=== PATIENT | female | born 1955 | race Caucasian/White ===

== ENCOUNTER 2016-09-16 08:32 | Observation (INO) | payer SELFPAY ==
[2016-09-16] MEDS ORDERED: LORAZEPAM CARPU-JECT 2 MG/ML DISP.SYRIN IVPUSH ONE (08:47)
--- NOTE | 2016-09-16 08:56 | PDOC ---
History of Present Illness <Sharon Felix - Last Filed: 09/16/16 10:17> - History of Present Illness Initial Comments: 09/16/16 08:49 61-year-old female with a past medical history of panic disorder, and chronic back pain on a fentanyl patch She is currently taking fentanyl, Percocet, and Klonopin There is no definite history of a prior seizure disorder Patient was brought in by EMS, when her son called that she was having some kind of tremors, and it was unclear if this was a seizure She arrived awake and alert The onset of the symptoms were 7 AM She was unable to sleep last night and did take an Advil PM at 7 AM After being put in bed 6 in the emergency department on the monitor, she was noted to have a heart rate of 117, and when the nurse came in to see her, she was slumped to her side and appeared to be possibly postictal At this time the patient is awake, but confused, and answering simple questions No evidence of any incontinence or tongue biting. She seems to becoming progressively more alert She denies any history of seizure disorder, and denies any recent head trauma No further history is available at this time History is provided by EMS, and old records <Beverly Kaur - Last Filed: 09/17/16 15:37> - General Stated Complaint: TREMORS Time Seen by Provider: 09/16/16 08:38 Past History <Sharon Felix - Last Filed: 09/16/16 10:17> - Past Medical History Anemia: No Asthma: No Cancer: No Cardiac Disorders: No CVA: No COPD: No CHF: No Dementia: No Diabetes: No GI Disorders: No Disorders: No HTN: No Hypercholesterolemia: No Liver Disease: No Psychiatric Problems: Yes (PANIC ATTACKS) Seizures: No Thyroid Disease: No - Surgical History Abdominal Surgery: No Appendectomy: Yes Cardiac Surgery: No Cholecystectomy: No Lung Surgery: No Neurologic Surgery: Yes (herniated disc,scoliosis) Orthopedic Surgery: No - Psycho/Social/Smoking Cessation Hx Anxiety: Yes Suicidal Ideation: No Smoking Status: Yes Smoking History: Never smoked Have you smoked in the past 12 months: Yes Number of Cigarettes Smoked Daily: 40 Cigars Per Day: 0 'Breaking Loose' booklet given: 01/28/16 Hx Alcohol Use: No Drug/Substance Use Hx: Yes Substance Use Type: Prescribed Hx Substance Use Treatment: No <Beverly Kaur - Last Filed: 09/17/16 15:37> - Past Medical History Allergies/Adverse Reactions: Allergies Allergy/AdvReac Type Severity Reaction Status Date / Time No Known Allergies Allergy Verified 05/29/16 20:50 Home Medications: Ambulatory Orders FENTANYL 75mcg PATCH [DURAGESIC 75mcg PATCH -] 75 mcg TD Q72H 01/24/13 Gabapentin 600 mg PO Q8H 12/03/14 Review of Systems - Review of Systems Able to Perform ROS?: No <Beverly Kaur - Last Filed: 09/17/16 15:37> *Physical Exam - Vital Signs Last Vital Signs Temp Pulse Resp BP Pulse Ox 16 171/85 97 09/16/16 08:43 09/16/16 08:43 09/16/16 08:43 <Sharon Felix - Last Filed: 09/16/16 10:17> - Physical Exam Comments: 09/16/16 08:52 Physical exam GENERAL: The patient is awake, alert, and oriented 2 She initially seemed a little post ictal, but is coming around quickly HEAD: Normal with no signs of trauma. EYES: Pupils equal, round and reactive to light, extraocular movements intact, sclera anicteric, conjunctiva are normal. ENT: oropharynx clear without exudates. Moist mucous membranes. NECK: Normal range of motion, supple LUNGS: Breath sounds equal, clear to auscultation bilaterally. No wheezes, and no crackles. HEART: Regular rate and rhythm, normal S1 and S2 without murmur, rub or gallop. ABDOMEN: Soft, nontender, normoactive bowel sounds. No guarding, no rebound. No masses appreciated. EXTREMITIES: Normal range of motion, no edema. No clubbing or cyanosis. No cords, erythema, or tenderness. NEUROLOGICAL: Cranial nerves II through XII grossly intact. Normal speech, motor 5 out of 5 and equal in the upper and lower extremities bilaterally, alert and oriented 2, grossly nonfocal neurologic exam PSYCH: Normal mood, normal affect. SKIN: Warm, Dry, <Beverly Kaur - Last Filed: 09/17/16 15:37> ED Treatment Course - LABORATORY CBC & Chemistry Diagram: 09/16/16 09:10 09/16/16 09:10 - ADDITIONAL ORDERS Additional order review: 09/16/16 09:10 RBC 4.86 MCV 94.9 MCHC 32.7 RDW 13.9 MPV 8.2 - RADIOLOGY Radiograph Interpretation: 09/16/16 10:17 CT/HEAD CT WITHOUT CONTRAST CT scan of the brain c-. Reason for the study. Possible seizure. Comparison study CT brain March 21, 2016 Findings. Serial axial images of the brain were obtained from foramen magnum to the cranial vertex without intravenous contrast. The study was supplemented with computer-generated coronal and sagittal reconstruction images. Heating Worker image was reviewed. There is no evidence of acute subarachnoid hemorrhage, acute intra-axial or extra-axial fluid collection consistent with subdural or epidural hematoma. No mass effect, midline shift, acute territorial ischemic changes, herniation or edema is present. Normal quarles matter white matter differentiation. Age appropriate CSF spaces unchanged from March 21, 2016. No interval change in the degree of the supratentorial chronic white matter microangiopathic ischemic changes. Examination of the bone windows show no fracture. The visualized paranasal sinuses and mastoid air cells are clear. Symmetrical optic globes. Unremarkable retro-orbital soft tissues. Impression. No evidence of acute intracranial hemorrhage, edema, midline shift, mass effect , or skull fracture. No CT evidence of acute territorial infarction. Reported By: Ham Franco MD 09/16/16 1012 RAD/CHEST X-RAY PORTABLE* Questionable seizure. Portable chest x-ray. Comparison study September 11, 2015. Patient is rotated toward the right side. No evidence of cardiomegaly. The pulmonary vasculature is normal. No evidence of pulmonary infiltrates, atelectasis, pleural effusion, or pneumothorax. Intact visualized osseous structures. EKG leads are noted. Impression. No evidence of CHF, pulmonary infiltrates, pleural effusion or pneumothorax. Reported By: Ham Franco MD 09/16/16 0938 <Sharon Felix - Last Filed: 09/16/16 10:17> - LABORATORY CBC & Chemistry Diagram: 09/17/16 06:00 09/17/16 06:00 - RADIOLOGY Radiology Studies Ordered: Category Date Time Status HEAD CT WITHOUT CONTRAST [CT] Stat CT Scan 09/16/16 08:46 Ordered CHEST X-RAY PORTABLE* [RAD] Stat Radiology 09/16/16 08:47 Ordered <Beverly Kaur - Last Filed: 09/17/16 15:37> Medical Decision Making - Medical Decision Making 09/16/16 08:56 61-year-old female with history as noted above, may have had a seizure, and may be post ictal There was a question of her having a seizure at home this morning, No prior history of seizure disorder Chronic pain issues Will give a dose of Ativan IV 09/16/16 09:44 EKG Normal sinus rhythm 95, normal axis Normal AV and IV conduction time Essentially normal EKG 09/16/16 12:02 Chest x-ray-NAD CT scan of the head without-NAD Laboratory Results - last 24 hr 09/16/16 09/16/16 09:10 09:10 WBC 10.9 H D RBC 4.86 Hgb 15.1 Hct 46.1 H MCV 94.9 MCHC 32.7 RDW 13.9 Plt Count 366 MPV 8.2 Sodium 137 Potassium 4.3 Chloride 98 Carbon Dioxide 23 D Anion Gap 16 BUN 18 D Creatinine 1.5 H D Creat Clearance w eGFR 35.19 Random Glucose 99 Calcium 9.5 Magnesium 2.6 H Total Bilirubin 0.4 D AST 19 D ALT 14 D Alkaline Phosphatase 113 Troponin I < 0.02 Total Protein 8.0 Albumin 4.5 Lipase 80 Possible new onset seizure disorder 09/16/16 12:40 Possible new onset seizure disorder Case discussed with hospitalist-Will place in observation for further workup <Beverly Kaur - Last Filed: 09/17/16 15:37> *DC/Admit/Observation/Transfer <Sharon Felix - Last Filed: 09/16/16 10:17> - Discharge Dispostion Admit: Yes <Beverly Kaur - Last Filed: 09/17/16 15:37> Diagnosis at time of Disposition: New onset seizure
[2016-09-16 09:25] LABS: MCHC 32.7 g/dl (32.0-36.0); MEAN CELL VOLUME 94.9 fl (80-96); MEAN PLT VOLUME 8.2 fl (7.5-11.1); PLATELET COUNT 366 K/MM3 (134-434); RDW 13.9 % (11.6-15.6); WHITE BLOOD COUNT 10.9 K/mm3 (4.0-10.0)
[2016-09-16 10:13] LABS: ALBUMIN 4.5 g/dl (3.4-5.0); ANION GAP 16 (8-16); CALCIUM 9.5 mg/dL (8.5-10.1); CO2 23 mmol/L (21-32); CREATININE 1.5 mg/dL (0.55-1.02); GLUCOSE,RANDOM 99 mg/dL (74-106); MAGNESIUM 2.6 mg/dL (1.8-2.4); SGPT/ALT 14 U/L (12-78)
[2016-09-16 10:17] LABS: ALK PHOS 113 U/L (45-117); BILIRUBIN,TOTAL 0.4 mg/dL (0.2-1.0); TROPONIN I < 0.02 ng/ml (0.00-0.05)
[2016-09-16 10:37] LABS: SGOT/AST 19 U/L (15-37)
--- NOTE | 2016-09-16 13:24 | EKG ---
Test Reason : Blood Pressure : / mmHG Vent. Rate : 095 BPM Atrial Rate : 095 BPM P-R Int : 102 ms QRS Dur : 078 ms QT Int : 366 ms P-R-T Axes : 066 066 062 degrees QTc Int : 459 ms SINUS RHYTHM WITH SHORT MN OTHERWISE NORMAL ECG WHEN COMPARED WITH ECG OF 21-MAR-2016 00:33, PREMATURE ATRIAL COMPLEXES ARE NO LONGER PRESENT T WAVE VARIATION Confirmed by FIDELIA DENISE, RADHA ([id number]) on 09/16/2016 1:23:59 PM Referred By: Confirmed By:RADHA MISTRY MD
[2016-09-16] MEDS ORDERED: LORAZEPAM CARPU-JECT 2 MG/ML DISP.SYRIN IVPUSH PRN (13:55)
--- NOTE | 2016-09-16 14:28 | HP ---
CHIEF COMPLAINT: Episode of possible seizure witnessed by family member PCP: HISTORY OF PRESENT ILLNESS: 61 year old female that presents to the ED after family witnessed episode of confusion and associated tremors. No family is present by the bedside at this time . History is obtained from patient and she has tangential thought process. Patient herself remembers taking 2 "Advil PM" around 6 am due to insomnia after which she recalls having " twitching " . Denies trauma, denies syncope , denies history of seizure. In the ED she had an episode that was described as postictal state. She was given Ativan. Recent Travel: NO PAST MEDICAL HISTORY: Chronic Back Pain PAST SURGICAL HISTORY: Back surgery Social History: Smoking:YES 30 P/Y Alcohol:denies Drugs: denies Family History: No history of seizure in the family Allergies No Known Allergies Allergy (Verified 05/29/16 20:50) DENIES HOME MEDICATIONS: Home Medications Medication Instructions Recorded FENTANYL 75mcg PATCH [DURAGESIC 75 mcg TD Q72H 01/24/13 75mcg PATCH -] Gabapentin 600 mg PO Q8H 12/03/14 REVIEW OF SYSTEMS CONSTITUTIONAL: Absent: fever, chills, diaphoresis, generalized weakness, malaise, loss of appetite, weight change HEENT: Absent: rhinorrhea, nasal congestion, throat pain, throat swelling, difficulty swallowing, mouth swelling, ear pain, eye pain, visual changes CARDIOVASCULAR: Absent: chest pain, syncope, palpitations, irregular heart rate, lightheadedness , peripheral edema RESPIRATORY: Absent: cough, shortness of breath, dyspnea with exertion, orthopnea, wheezing, stridor, hemoptysis GASTROINTESTINAL: Absent: abdominal pain, abdominal distension, nausea, vomiting, diarrhea, constipation, melena, hematochezia GENITOURINARY: Absent: dysuria, frequency, urgency, hesitancy, hematuria, flank pain, genital pain MUSCULOSKELETAL: Chronic back pain SKIN: Absent: rash, itching, pallor HEMATOLOGIC/IMMUNOLOGIC: Absent: easy bleeding, easy bruising, lymphadenopathy, frequent infections ENDOCRINE: Absent: unexplained weight gain, unexplained weight loss, heat intolerance, cold intolerance NEUROLOGIC: per HPI PSYCHIATRIC: Absent: anxiety, depression, suicidal or homicidal ideation, hallucinations. PHYSICAL EXAMINATION Vital Signs - 24 hr 09/16/16 13:02 Pulse Rate [ 88 Apical] Respiratory 18 Rate Blood Pressure 160/56 [Left Arm] O2 Sat by Pulse 98 Oximetry (%) GENERAL: Awake, alert, and fully oriented, in no acute distress. HEAD: Normal with no signs of trauma. EYES: Pupils equal, round and reactive to light, extraocular movements intact, sclera anicteric, conjunctiva clear. No lid lag. EARS, NOSE, THROAT: Ears normal, nares patent, oropharynx clear without exudates. Moist mucous membranes. NECK: Normal range of motion, supple without lymphadenopathy, JVD, or masses. LUNGS: Breath sounds equal, clear to auscultation bilaterally. No wheezes, and no crackles. No accessory muscle use. HEART: Regular rate and rhythm, normal S1 and S2 without murmur, rub or gallop. ABDOMEN: Soft, nontender, not distended, normoactive bowel sounds, no guarding, no rebound, no masses. No hepatomegaly or splenomegaly. MUSCULOSKELETAL: Normal range of motion at all joints. No bony deformities or tenderness. No CVA tenderness. UPPER EXTREMITIES: 2+ pulses, warm, well-perfused. No cyanosis. No clubbing. No peripheral edema. LOWER EXTREMITIES: 2+ pulses, warm, well-perfused. No calf tenderness. No peripheral edema. NEUROLOGICAL: Cranial nerves II-XII intact. Normal speech. Normal gait. PSYCHIATRIC: Cooperative. Good eye contact. Tangential thought process SKIN: Warm, dry, normal turgor, no rashes or lesions noted, normal capillary refill. CT scan of the hed showed n o acute abnormality Abnormal Lab Results 09/16/16 09/16/16 09:10 09:10 WBC 10.9 H D Hct 46.1 H Creatinine 1.5 H D Magnesium 2.6 H ASSESSMENT/PLAN: 61 year old female with possible new onset seizure . 1. Possible seizure - no prior history, no acute findings on CT. Possibly medication induced confusion. SHe is on fentanyl/neurontin and took Advil PM - EEG -Ativan PRN -frequent neuro checks - seizure precautions - neurology evaluation 2. Elevated creatinine- r/o UTI, dehydration - IVF - UA stat 3. Chronic back pain - on fentanyl patch . Will use the one placed at home 4. DVT PPX - SCD. Visit type - Emergency Visit Emergency Visit: Yes ED Registration Date: 09/16/16 Care time: The patient presented to the Emergency Department on the above date and was hospitalized for further evaluation of their emergent condition. - New Patient This patient is new to me today: Yes Date on this admission: 09/16/16 - Critical Care Critical Care patient: No
--- NOTE | 2016-09-16 16:45 | PN ---
Progress Note (short form) - Note Progress Note: Neurology Attempted to see patient at bedside multiple times, she is currently unavailable at testing EEG, ativan prn ordered Full consult to follow
[2016-09-16 17:52] VITALS: BMI 18.8
[2016-09-16] MEDS: SODIUM CHLORIDE 1,000 ML IV SCH (19:33)
[2016-09-17 00:49] LABS: URINE APPEARANCE CLEAR; URINE BILIRUBIN NEGATIVE (NEGATIVE); URINE BLOOD NEGATIVE (NEGATIVE); URINE COLOR YELLOW; URINE GLUCOSE (UA) NEGATIVE (NEGATIVE); URINE KETONE NEGATIVE (NEGATIVE); URINE NITRITE POSITIVE (NEGATIVE); URINE UROBILINOGEN NEGATIVE E.U./dl (0.2-1.0)
[2016-09-17 00:52] LABS: URINE LEUK ESTERASE TRACE (NEGATIVE); URINE PROTEIN 1+ (NEGATIVE)
[2016-09-17 00:55] LABS: URINE BACTERIA MANY /hpf (NONE SEEN); URINE RBC <1 /hpf (0-3); URINE WBC 13 /hpf (3-5)
[2016-09-17 02:06] LABS: URINE MARIJUANA THC NEGATIVE ng/ml (CUTOFF=50)
[2016-09-17] MEDS: SODIUM CHLORIDE 1,000 ML IV SCH (05:16)
[2016-09-17 08:21] LABS: BASOPHIL 1.2 % (0-2.0); MCH 31.3 pg (25.7-33.7); MCHC 32.9 g/dl (32.0-36.0); MEAN PLT VOLUME 8.3 fl (7.5-11.1); NEUTROPHILS 39.9 % (42.8-82.8); PLATELET COUNT 269 K/MM3 (134-434); RDW 13.8 % (11.6-15.6); WHITE BLOOD COUNT 6.8 K/mm3 (4.0-10.0)
[2016-09-17 09:03] LABS: ALK PHOS 74 U/L (45-117); ANION GAP 8 (8-16); BILIRUBIN,TOTAL 0.2 mg/dL (0.2-1.0); CALCIUM 7.9 mg/dL (8.5-10.1); CO2 26 mmol/L (21-32); CREATININE 0.9 mg/dL (0.55-1.02); GLUCOSE,RANDOM 78 mg/dL (74-106); SGOT/AST 8 U/L (15-37); SGPT/ALT 9 U/L (12-78); TOT PROT 5.2 g/dl (6.4-8.2)
--- NOTE | 2016-09-17 11:58 | CONSULT ---
Consult Consult Specialty:: Neurology Reason for Consultation:: Possible seizure - History of Present Illness History of Present Illness: 61 year old woman, presents with episode of confusion and tremors in bilateral upper extremities. The patient reports yesterday noting new onset of confusion followed by both hands trembling lasting a few minutes and self resolving. She states she is unclear whether she lost consciousness. She denies any associated incontinence or tongue biting. Denies prior history of seizure but states she had one episode of confusion but was unable to elaborate on the details of this event. The patient is tangential and difficult to obtain history from, but states she is back to baseline. Has noted increased anxiety due to recent family events. CT head performed in ED shows no acute findings. EEG completed and results are pending. - History Source History Provided By: Patient - Past Medical History Musculoskeletal: Yes: Chronic low back pain - Alcohol/Substance Use Hx Alcohol Use: No - Smoking History Smoking history: Never smoked Have you smoked in the past 12 months: Yes Aproximately how many cigarettes per day: 40 - Social History ADL: Family Assistance History of Recent Travel: No Home Medications - Allergies Allergies/Adverse Reactions: Allergies Allergy/AdvReac Type Severity Reaction Status Date / Time No Known Allergies Allergy Verified 05/29/16 20:50 - Home Medications Home Medications: Ambulatory Orders FENTANYL 75mcg PATCH [DURAGESIC 75mcg PATCH -] 75 mcg TD Q72H 01/24/13 Gabapentin 600 mg PO Q8H 12/03/14 Family Disease History - Family Disease History Family History: Denies Review of Systems - Review of Systems Constitutional: reports: No Symptoms Eyes: reports: No Symptoms HENT: reports: No Symptoms Cardiovascular: reports: No Symptoms Respiratory: reports: No Symptoms Neurological: reports: Tremors Physical Exam Vital Signs: Vital Signs Temperature 98.7 F 09/17/16 06:00 Pulse Rate 65 09/17/16 06:00 Respiratory Rate 18 09/17/16 06:00 Blood Pressure 104/52 09/17/16 06:00 O2 Sat by Pulse Oximetry (%) 95 09/16/16 21:00 Constitutional: Yes: No Distress, Calm Eyes: Yes: Conjunctiva Clear, EOM Intact HENT: Yes: Atraumatic, Normocephalic Cardiovascular: Yes: S1, S2 Respiratory: Yes: Regular Neurological: Yes: Alert, Oriented, Cran Nerves II-XII Intact ...Motor Strength: WNL Labs: CBC, BMP 09/17/16 06:00 09/17/16 06:00 Assessment/Plan 61 year old woman, presents with episode of confusion and tremors in bilateral upper extremities. The patient reports yesterday noting new onset of confusion followed by both hands trembling lasting a few minutes and self resolving. She states she is unclear whether she lost consciousness. She denies any associated incontinence or tongue biting. Denies prior history of seizure but states she had one episode of confusion but was unable to elaborate on the details of this event. The patient is tangential and difficult to obtain history from, but states she is back to baseline. CT head performed in ED shows no acute findings. EEG completed and results are pending. Possible seizure, unclear if symptoms related to anxiety CT head no acute findings MRI brain without contrast pending EEG pending No clear indication to initiate AEDs given this is possible first time event If MRI brain and EEG show no acute findings, recommend outpatient neurology follow up
[2016-09-17 14:48] VITALS: BP 122/88; PULSE 70; TEMP 98.6
--- NOTE | 2016-09-17 16:18 | DS ---
Physical Exam: SUBJECTIVE: Patient seen and examined at bedside, alert, awake, denies any concurrent symptoms, denies TAVERA, CP, SOB,N,V. No episodes of limb jerking. OBJECTIVE: Vital Signs Period Temp Pulse Resp BP Sys/Gruber Pulse Ox Last 24 Hr 97.8 F-99.1 F 65-76 16-18 100-122/52-88 94-95 PHYSICAL EXAM GENERAL: The patient is awake, alert, and fully oriented, not confused. speaks in tangents, anxious HEAD: Normal with no signs of trauma. EYES: PERRL, extraocular movements intact, sclera anicteric, conjunctiva clear. ENT: Ears normal, nares patent, oropharynx clear without exudates, moist mucous membranes. NECK: Trachea midline, full range of motion, supple. LUNGS: Breath sounds equal, clear to auscultation bilaterally, no wheezes, no crackles, no accessory muscle use. HEART: Regular rate and rhythm, S1, S2 without murmur, rub or gallop. ABDOMEN: Soft, nontender, nondistended, normoactive bowel sounds, no guarding, no rebound, no hepatosplenomegaly, no masses. EXTREMITIES: 2+ pulses, warm, well-perfused, no edema. NEUROLOGICAL: Cranial nerves II through XII grossly intact. Normal speech, gait not observed. PSYCH: speaks in tangent, anxious, component of personality disorder SKIN: Warm, dry, normal turgor, no rashes or lesions noted. LABS Laboratory Results - last 24 hr 09/16/16 09/16/16 09/17/16 23:20 23:20 06:00 WBC 6.8 D RBC 3.85 D Hgb 12.0 D Hct 36.6 D MCV 95.0 MCHC 32.9 RDW 13.8 Plt Count 269 D MPV 8.3 Neutrophils % 39.9 L D Lymphocytes % 49.3 H D Monocytes % 7.6 Eosinophils % 2.0 D Basophils % 1.2 Sodium Potassium Chloride Carbon Dioxide Anion Gap BUN Creatinine Creat Clearance w eGFR Random Glucose Calcium Total Bilirubin AST ALT Alkaline Phosphatase Total Protein Albumin Urine Color Yellow Urine Appearance Clear Urine pH 5.0 Ur Specific [place] 1.025 Urine Protein 1+ H Urine Glucose (UA) Negative Urine Ketones Negative Urine Blood Negative Urine Nitrite Positive Urine Bilirubin Negative Urine Urobilinogen Negative Ur Leukocyte Esterase Trace H Urine RBC <1 Urine WBC 13 Ur Epithelial Cells Rare Urine Bacteria Many Opiates Screen Negative Methadone Screen Negative Barbiturate Screen Negative Phencyclidine Screen Negative Ur Amphetamines Screen Negative MDMA (Ecstasy) Screen Negative Benzodiazepines Screen Negative Cocaine Screen Negative U Marijuana (THC) Screen Negative 09/17/16 06:00 WBC RBC Hgb Hct MCV MCHC RDW Plt Count MPV Neutrophils % Lymphocytes % Monocytes % Eosinophils % Basophils % Sodium 144 Potassium 4.1 Chloride 110 H D Carbon Dioxide 26 Anion Gap 8 BUN 22 H D Creatinine 0.9 D Creat Clearance w eGFR > 60 Random Glucose 78 D Calcium 7.9 L Total Bilirubin 0.2 D AST 8 L D ALT 9 L D Alkaline Phosphatase 74 D Total Protein 5.2 L D Albumin 3.0 L D Urine Color Urine Appearance Urine pH Ur Specific [place] Urine Protein Urine Glucose (UA) Urine Ketones Urine Blood Urine Nitrite Urine Bilirubin Urine Urobilinogen Ur Leukocyte Esterase Urine RBC Urine WBC Ur Epithelial Cells Urine Bacteria Opiates Screen Methadone Screen Barbiturate Screen Phencyclidine Screen Ur Amphetamines Screen MDMA (Ecstasy) Screen Benzodiazepines Screen Cocaine Screen U Marijuana (THC) Screen HOSPITAL COURSE: Date of Admission:09/16/16 Date of Discharge: 09/17/16 This is a 61 year old female, poor historian, with a past medical history of depression, chronic back pain, presented to ER by ambulance due to supposed, unwitnessed, seizure like activity. Patient describes event as "my arms were moving and I couldn't control it," she said she dropped her ashtray. She denied loss of consciousness to me personally. The HPI is different with each interrogation. She described to me a very unhealthy living environment at home, daughter alcoholic, living with her, granddaughter, son. She has experienced recent deaths in her life, her ex and son, details unknown. On admission vitals signs were normal, labs were normal, head CT was normal. She had an EEG study, currently pending. She was seen by neurology. Patient did not experience any episodes while in hospital. This etiology presents more toward a psychological aspect, possibly anxiety vs a neurology aspect of an acute seizure. Patient does have a psych history for which she take sertraline. Patient does wear fentanyl patch for back pain 75mg q72hrs. She did admit to taking Advil PM that night of her event as well, this could have caused some confusion. Patient is advise to follow up with neurology to review her EEG study. MRI of brain as outpatient if necessary. Minutes to complete discharge: 35 Discharge Summary Reason For Visit: NEW ONSET SEIZURE Current Active Problems Accidental fall (Acute) Anxiety (Acute) New onset seizure (Acute) Chronic pain (Chronic) Condition: Fair - Instructions Diet, Activity, Other Instructions: Ms. Becker, you have been observed and worked up for you r acute condition. We believe what you experienced could have been from dehydration, not eating and drinking the past few days, or a mix from your pain medications and added Advil PM. Please refrain from mixing medications that can make you drowsy while on your pain patch. Your head cat scan was normal. Please follow up with your neurologist for further evaluation of your condition. If you experience any worsening of symptoms, chest pain, shortness of breath, loss of consciousness, please return to the emergency room. Referrals: Lety Huntley MD [Staff Physician] - - Home Medications Comprehensive Discharge Medication List: Ambulatory Orders FENTANYL 75mcg PATCH [DURAGESIC 75mcg PATCH -] 75 mcg TD Q72H 01/24/13 Gabapentin 600 mg PO Q8H 12/03/14 This patient is new to me today: Yes Date on this admission: 09/17/16 Emergency Visit: Yes ED Registration Date: 09/16/16 Care time: The patient presented to the Emergency Department on the above date and was hospitalized for further evaluation of their emergent condition. Critical Care patient: No - Discharge Referral Referred to [facility] No
--- NOTE | 2016-09-17 16:24 | PN ---
Teaching Attending Note Name of Resident: Zaina Clifford ATTENDING PHYSICIAN STATEMENT I saw and evaluated the patient. I reviewed the resident's note and discussed the case with the resident. I agree with the resident's findings and plan as documented. SUBJECTIVE: seen and evaluated at the bedside OBJECTIVE: resting comfortably; no focal deficits on exam; extremely tangential speech ASSESSMENT AND PLAN: 61 year old woman well known to ED staff with multiple psychiatric problems including depression, anxiety, panic attacks, on chronic opiates for chronic lower back pain -pt has multiple visits to ED for accidental medication overdose, medication "side effects", and numerous ED visits wanting refills on clonezepam and opiates -very difficult to take history as pt has extremely tangential speech but states that she was taking a bath and then her arms started shaking uncontrollably and her had no control over her body and threw herself out of the tub onto the bathroom floor -never lost consciousness and had no bladder/bowel incontinence -stated that she had similar episode in Jul of this year but could not remember any details and did remember is she sough medical attention at that time -called Pt's daughter Jacobo who also has extremely tangential speech; when asked about what happened at home yesterday had to ask very detailed questions to get any kind of sensible answers from daughter -when asked about episode in Jul daughter states "I dont know" and then started talking about how she advised her mother that she couldnt cynthia the pharmaceutical companies because the side effects were written on the bottle and that she should have her riveting machine operator tape control make arrangements for her to be the legal guardian of the mother and have control over her money -when redirected to events in Jul daughter stated again that she didnt know what happened; when asked if her family took her mother to see a doctor at that time she couldnt remember and stated that "I may not have been here"; was then asked if they lived together she replied "yes but I may not have been here" -pt's daughter was then asked if she was away on vacation or out of town when she said "I may not have been here" she said "I never go on vacation because people say I am too nice" -all of a sudden daughter began acting very paranoid and stating that she didnt want to share any medical information "with someone over the phone" and asked if her mother gave permission -daughter then said "you're not using proper vocabulary for your profession"; when asked what vocabulary should be used she hung up the phone -pt will be discharged home as she never lost consciousness and had no bladder/ bowel incontinence and can follow up with neurology as an outpatient
== END 2016-09-17 18:09 | disposition home or self-care (01) ==
LOC: JER 08:32 → JERBED 12:41 → J8W 18:00
PROVIDERS: ADMIT Internal Medicine; ATTEND Internal Medicine
DX: R56.9 Unspecified convulsions (principal); F41.9 Anxiety disorder, unspecified; G89.29 Other chronic pain; M54.5 Low back pain; E86.0 Dehydration
CPT/HCPCS: 36415; 70450-TC; 71010-TC; 80048; 80053; 80307; 81003; 81015; 82550; 83690; 83735; 84484; 85025; 85027; 93005; 93010; 95816; 99285-25; G0378

== ENCOUNTER 2016-10-19 15:51 | Emergency (ER) | payer SELFPAY ==
--- NOTE | 2016-10-19 15:54 | PDOC ---
History of Present Illness - General History Source: Patient Exam Limitations: No Limitations - History of Present Illness Initial Comments: 10/19/16 16:10 The patient is a 61-year-old female with a past medical history of panic disorder, and chronic back pain on a fentanyl patch, who presents to the ED with withdrawal symptoms and tremors from losing remaining fentanyl patches. She only complains of her usual back pain and chills. She denies fever, SOB, chest pain, nausea, vomiting, diarrhea, dysuria, frequency. Last refill 09/24/16 <Sam Oneill - Last Filed: 10/19/16 16:28> <Steve Haro - Last Filed: 10/19/16 17:39> - General Stated Complaint: WITHDRAWAL SYMPTOMS Time Seen by Provider: 10/19/16 15:54 Past History <Sam Oneill - Last Filed: 10/19/16 16:28> - Past Medical History Anemia: No Asthma: No Cancer: No Cardiac Disorders: No CVA: No COPD: No CHF: No Dementia: No Diabetes: No GI Disorders: No Disorders: No HTN: No Hypercholesterolemia: No Liver Disease: No Psychiatric Problems: Yes (PANIC ATTACKS) Seizures: No Thyroid Disease: No - Surgical History Abdominal Surgery: No Appendectomy: Yes Cardiac Surgery: No Cholecystectomy: No Lung Surgery: No Neurologic Surgery: Yes (herniated disc,scoliosis) Orthopedic Surgery: No - Immunization History Immunization Up to Date: Yes - Psycho/Social/Smoking Cessation Hx Anxiety: Yes Suicidal Ideation: No Smoking Status: Yes Smoking History: Never smoked Have you smoked in the past 12 months: Yes Number of Cigarettes Smoked Daily: 40 Cigars Per Day: 0 'Breaking Loose' booklet given: 01/28/16 Hx Alcohol Use: No Drug/Substance Use Hx: Yes Substance Use Type: Prescribed Hx Substance Use Treatment: No <Steve Haro - Last Filed: 10/19/16 17:39> - Past Medical History Allergies/Adverse Reactions: Allergies Allergy/AdvReac Type Severity Reaction Status Date / Time No Known Allergies Allergy Verified 10/19/16 15:53 Home Medications: Ambulatory Orders FENTANYL 75mcg PATCH [DURAGESIC 75mcg PATCH -] 75 mcg TD Q72H 01/24/13 Gabapentin 800 mg PO ASDIR 12/03/14 Oxycodone HCl/Acetaminophen [Percocet 10-325 mg Tablet] 1 each PO ASDIR Review of Systems - Review of Systems Able to Perform ROS?: Yes Comments:: 10/19/16 16:10 GENERAL/CONSTITUTIONAL: + chills. No fever. No weakness. HEAD, EYES, EARS, NOSE AND THROAT: No change in vision. No ear pain or discharge. No sore throat. CARDIOVASCULAR: No chest pain or shortness of breath. RESPIRATORY: No cough, wheezing, or hemoptysis. GASTROINTESTINAL: No nausea, vomiting, diarrhea or constipation. GENITOURINARY: No dysuria, frequency, or change in urination. MUSCULOSKELETAL: + back pain. No joint or muscle swelling or pain. No neck pain. SKIN: No rash NEUROLOGIC: No headache, vertigo, loss of consciousness, or change in strength/ sensation. ENDOCRINE: No increased thirst. No abnormal weight change. HEMATOLOGIC/LYMPHATIC: No anemia, easy bleeding, or history of blood clots. ALLERGIC/IMMUNOLOGIC: No hives or skin allergy. <Sam Oneill - Last Filed: 10/19/16 16:28> *Physical Exam - Vital Signs Last Vital Signs Temp Pulse Resp BP Pulse Ox 99.1 F 112 H 18 162/96 98 10/19/16 15:52 10/19/16 15:52 10/19/16 15:52 10/19/16 15:52 10/19/16 15:52 - Physical Exam Comments: 10/19/16 16:11 GENERAL: Awake, alert, and fully oriented, in no acute distress. Tremors HEAD: No signs of trauma EYES: PERRLA, EOMI, sclera anicteric, conjunctiva clear ENT: Auricles normal inspection, hearing grossly normal, nares patent, oropharynx clear without exudates. Moist mucosa NECK: Normal ROM, supple, no lymphadenopathy, JVD, or masses LUNGS: Breath sounds equal, clear to auscultation bilaterally. No wheezes, and no crackles HEART: Tachycardic. Normal S1 and S2, no murmurs, rubs or gallops ABDOMEN: Soft, nontender, normoactive bowel sounds. No guarding, no rebound. No masses EXTREMITIES: Normal range of motion, no edema. No clubbing or cyanosis. No cords, erythema, or tenderness NEUROLOGICAL: Cranial nerves II through XII grossly intact. Normal speech, normal gait SKIN: Warm, Dry, normal turgor, no rashes or lesions noted. <Sam Oneill - Last Filed: 10/19/16 16:28> Heart Score/ECG Review - ECG Intrepretation Comment:: 10/19/16 16:29 Sinus Rhythm with short MS. Vent Rate of 88 bpm Otherwise normal ECG. <Sam Oneill - Last Filed: 10/19/16 16:28> ED Treatment Course - LABORATORY CBC & Chemistry Diagram: 10/19/16 16:48 10/19/16 16:48 - ADDITIONAL ORDERS Additional order review: 10/19/16 16:53 Pt is resting more comfortably, no tremors on re-examination. Patient will call PMD tomorrow to obtain refills. Pt with mild diarrhea. Tremors resolved. No tachycardia, HR on EKG NSR with HR 88 Will discharge home Pt is in agreement with plan 10/19/16 16:55 Neuro exam in grossly intact, no signs of a spinal abscess noted No fever, fall or trauma. 10/19/16 17:37 Pt is much better, no shaking. Will discharge home. Labs WNL. Pt is in agreement with plan, will follow up with PMD If worsen return to ER <Steve Haro - Last Filed: 10/19/16 17:39> *DC/Admit/Observation/Transfer - Attestations Scribe Attestion: 10/19/16 16:12 Documentation prepared by Sam Oneill, acting as lead medical technologist for Steve Haro MD. <Sam Oneill - Last Filed: 10/19/16 16:28> - Discharge Dispostion Admit: No <Steve Haro - Last Filed: 10/19/16 17:39> Diagnosis at time of Disposition: Opiate withdrawal - Discharge Dispostion Disposition: HOME Condition at time of disposition: Good - Patient Instructions Printed Discharge Instructions: DI for Drug Withdrawal Additional Instructions: Please follow up with PMD tomorrow If worsen return to ER
[2016-10-19] MEDS ORDERED: OXYCODONE/APAP 5/325MG COMBO TABLET PO ONE (16:04)
[2016-10-19] MEDS ORDERED: FENTANYL PATCH WASTE MC PRN (16:04)
[2016-10-19] MEDS ORDERED: SODIUM CHLORIDE 1,000 ML IV STA (16:08)
[2016-10-19] MEDS ORDERED: OXYCODONE/APAP 5/325MG COMBO TABLET ONE (16:09)
[2016-10-19] MEDS ORDERED: fentaNYL 75mcg/hr PATCH.TD72 TD SCH (16:15)
[2016-10-19 16:16] VITALS: TEMP 99.1; BMI 21.4
[2016-10-19 17:11] LABS: ALBUMIN 4.2 g/dl (3.5-5.0); ALK PHOS 94 U/L (32-92); ANION GAP 11 (8-16); CALCIUM 9.2 mg/dl (8.4-10.2); CO2 20 mmol/L (22-28); CREATININE 0.9 mg/dl (0.6-1.3); GLUCOSE,RANDOM 102 mg/dl (74-106); SGOT/AST 15 U/L (10-42); TOT PROT 7.3 g/dl (6.4-8.3)
[2016-10-19 17:14] LABS: BASOPHIL 1.1 % (0-2.0); EOSINOPHIL 1.4 % (0-4.5); MCH 31.3 pg (25.7-33.7); MCHC 33.5 g/dl (32.0-36.0); MEAN CELL VOLUME 93.4 fl (80-96); MEAN PLT VOLUME 9.3 fl (7.5-11.1); PLATELET COUNT 448 K/MM3 (134-434); RDW 13.7 % (11.6-15.6); WHITE BLOOD COUNT 8.4 K/mm3 (4.0-10.8)
[2016-10-19 17:24] LABS: BILIRUBIN,TOTAL 0.6 mg/dl (0.2-1.0)
[2016-10-19 17:26] LABS: SGPT/ALT < 10 U/L (10-40)
[2016-10-19 17:54] VITALS: BP 148/84; PULSE 86
--- NOTE | 2016-10-20 10:18 | EKG ---
Test Reason : Blood Pressure : / mmHG Vent. Rate : 088 BPM Atrial Rate : 088 BPM P-R Int : 082 ms QRS Dur : 072 ms QT Int : 382 ms P-R-T Axes : 023 067 066 degrees QTc Int : 462 ms SINUS RHYTHM WITH SHORT ME OTHERWISE NORMAL ECG WHEN COMPARED WITH ECG OF 16-SEP-2016 08:59, ST NO LONGER DEPRESSED IN ANTERIOR LEADS Confirmed by RORY DENISE, KANA ([id number]) on 10/20/2016 10:18:42 AM Referred By: GÓMEZ GERBER Confirmed By:KANA VALADEZ MD
== END 2016-10-19 17:54 | disposition home or self-care (01) ==
LOC: FER 15:51
PROC: 3E0337Z Introduction of Electrolytic and Water Balance Substance into Peripheral Vein, Percutaneous Approach (ICD-10-PCS; principal; 2016-10-19)
DX: F11.23 Opioid dependence with withdrawal (principal); G89.29 Other chronic pain; F17.210 Nicotine dependence, cigarettes, uncomplicated; F41.9 Anxiety disorder, unspecified
CPT/HCPCS: 36415; 80053; 85025; 93005; 99283-25

== ENCOUNTER 2016-10-24 18:50 | Emergency (ER) | payer SELFPAY ==
[2016-10-24 18:58] VITALS: TEMP 98; BMI 20.7
--- NOTE | 2016-10-24 19:17 | PDOC ---
History of Present Illness - General Chief Complaint: RX Refill Stated Complaint: I HAVENT HAD MY MEDS IN DAYS Time Seen by Provider: 10/24/16 19:13 - History of Present Illness Initial Comments: This 61-year-old woman with a history of chronic back pain secondary to injury states that she has not been able to contact her pain management doctor ( ) for the last 5 days and has not been able to obtain refills of her pain medications. Patient has been maintained on fentanyl patch/Percocet/ gabapentin. According to [facility] records,the last time she filled prescriptions for these medications was 09/24/16. She was seen in the ER here on 10/19/16 and fentanyl patch was placed. She also received 1 Percocet tablet by mouth. Plan was for her to contact her physician for refills. Patient states that despite multiple attempts to have her doctor call her back, she has been unable to reach him. The patient still has the fentanyl patch intact on her left arm; she has not had any Percocet since October 19 and gabapentin since the previous week. Patient states that she feels somewhat jittery with moderate pain of her back but otherwise is in no acute distress. Past History - Past Medical History Allergies/Adverse Reactions: Allergies Allergy/AdvReac Type Severity Reaction Status Date / Time No Known Allergies Allergy Verified 10/24/16 18:53 Home Medications: Ambulatory Orders FENTANYL 75mcg PATCH [DURAGESIC 75mcg PATCH -] 75 mcg TD Q72H 01/24/13 Gabapentin 800 mg PO ASDIR 12/03/14 Oxycodone HCl/Acetaminophen [Percocet 10-325 mg Tablet] 1 each PO ASDIR Gabapentin [Neurontin [DO NOT STOCK]] 800 mg PO DAILY #5 tablet 10/24/16 Oxycodone HCl/Acetaminophen [Percocet 10-325 mg Tablet] 1 each PO BID PRN #10 tablet MDD 2 tabs 10/24/16 Anemia: No Asthma: No Cancer: No Cardiac Disorders: No CVA: No COPD: No CHF: No Dementia: No Diabetes: No GI Disorders: No Disorders: No HTN: No Hypercholesterolemia: No Liver Disease: No Psychiatric Problems: Yes (PANIC ATTACKS) Seizures: No Thyroid Disease: No - Surgical History Abdominal Surgery: No Appendectomy: Yes Cardiac Surgery: No Cholecystectomy: No Lung Surgery: No Neurologic Surgery: Yes (herniated disc,scoliosis) Orthopedic Surgery: No - Immunization History Immunization Up to Date: Yes - Psycho/Social/Smoking Cessation Hx Anxiety: Yes Suicidal Ideation: No Smoking Status: Yes Smoking History: Current every day smoker Have you smoked in the past 12 months: Yes Number of Cigarettes Smoked Daily: 20 Cigars Per Day: 0 Information on smoking cessation initiated: Yes 'Breaking Loose' booklet given: 10/24/16 Hx Alcohol Use: No Drug/Substance Use Hx: Yes Substance Use Type: Prescribed Hx Substance Use Treatment: No Review of Systems - Review of Systems Able to Perform ROS?: Yes Comments:: 12 point review of systems is negative except for what is noted in the history of present illness *Physical Exam - Vital Signs Last Vital Signs Temp Pulse Resp BP Pulse Ox 98 F 120 H 18 186/116 100 10/24/16 18:53 10/24/16 18:53 10/24/16 18:53 10/24/16 18:53 10/24/16 18:53 - Physical Exam Comments: GENERAL: Awake, alert, and fully oriented, in no acute distress HEAD: No signs of trauma EYES: PERRLA, EOMI, sclera anicteric, conjunctiva clear ENT: Auricles normal inspection, hearing grossly normal, nares patent, oropharynx clear without exudates. Moist mucosa NECK: Normal ROM, supple, no lymphadenopathy, JVD, or masses LUNGS: Breath sounds clear and equal. No wheezes, and no crackles HEART: Regular rate and rhythm, normal S1 and S2, no murmurs, rubs or gallops ABDOMEN: Soft, nontender, normoactive bowel sounds. No guarding, no rebound. No masses EXTREMITIES: Normal range of motion, no edema. No clubbing or cyanosis. No cords, erythema, or tenderness NEUROLOGICAL: Cranial nerves II through XII grossly intact. Normal speech, normal gait SKIN: Warm, Dry, normal turgor, no rashes or lesions noted. Medical Decision Making - Medical Decision Making This 61-year-old woman with a history of chronic pain, taking opiates chronically presents with inability to obtain refill medications from her pain management doctor over the last week. Although vital signs are somewhat hypodynamic, the patient is in no acute distress. Patient will be given one Percocet 5/325 tablet now. A small prescription(#10) of Percocet 10/325 will be transmitted to the patient' s pharmacy. Also, small (#5) prescription for gabapentin 800 will be transmitted to the patient's pharmacy. Voicemail was left with the patient's pain management doctor (Dr. Reese) but no call back received. She will continue to attempt to contact her doctor over the next several days. She should return to the emergency room if she has severe pain, shortness of breath, vomiting, fever *DC/Admit/Observation/Transfer Diagnosis at time of Disposition: Chronic pain Qualifiers: Chronic pain type: due to trauma Qualified Code(s): G89.21 - Chronic pain due to trauma - Discharge Dispostion Disposition: HOME Condition at time of disposition: Stable - Prescriptions Prescriptions: Gabapentin [Neurontin [DO NOT STOCK]] 800 mg PO DAILY #5 tablet Oxycodone HCl/Acetaminophen [Percocet 10-325 mg Tablet] 1 each PO BID PRN #10 tablet MDD 2 tabs PRN Reason: Pain - Referrals Referrals: Chris Reese MD [Staff Physician] - 3 days - Patient Instructions Printed Discharge Instructions: Managing Chronic Low Back Pain Additional Instructions: call Dr Reese for followup within 3-4 days return to ER if symptoms worsen
[2016-10-24 20:01] VITALS: BP 141/96; PULSE 103
[2016-10-24] MEDS ORDERED: OXYCODONE/APAP 5/325MG COMBO TABLET PO ONE (21:06)
[2016-10-24] MEDS ORDERED: OXYCODONE/APAP 5/325MG COMBO TABLET ONE (21:09)
== END 2016-10-24 21:28 | disposition home or self-care (01) ==
LOC: FER 18:50
DX: G89.21 Chronic pain due to trauma (principal); F41.0 Panic disorder [episodic paroxysmal anxiety]; F17.210 Nicotine dependence, cigarettes, uncomplicated
CPT/HCPCS: 99281-25

== ENCOUNTER 2016-12-17 17:45 | Emergency (ER) | payer SELFPAY ==
[2016-12-17 17:55] VITALS: BP 131/70; PULSE 92; TEMP 98.8; BMI 19.3
--- NOTE | 2016-12-17 18:02 | PDOC ---
History of Present Illness - General History Source: Patient Exam Limitations: No Limitations - History of Present Illness Initial Comments: 12/17/16 19:03 The patient is a 61 year old female, with a significant past medical history of panic attacks, who presents to the emergency department complaining of right foot pain for approximately 1 month. The patient reports she initially thought it was a blister. As a result, she reports she was wrapping her right 5th toe with a bandaid, and occasionally with a paper towel. Patient reports the blister has dried up, but the pain persists. She reports diffuse right foot pain radiating up her right leg. Patient reports the pain wakes her up at night. She states it occasionally feels as if someone is using burlap to scratch her leg. She reports increased swelling of her right foot, but no erythema or ecchymosis. The patient denies any recent trauma to her legs. She denies any recent travel. Allergies: NKDA Past Surgical History: Appendectomy, herniated disk repair, scoliosis repair Social History: Current everyday smoker. <Gage Brand - Last Filed: 12/17/16 19:06> - General History Source: Patient Exam Limitations: No Limitations <Bruna Norris - Last Filed: 12/19/16 09:24> - General Chief Complaint: Pain Stated Complaint: RIGHT TOE BLISTER/EDEMA Time Seen by Provider: 12/17/16 17:53 Past History <Gage Brand - Last Filed: 12/17/16 19:06> - Past Medical History Anemia: No Asthma: No Cancer: No Cardiac Disorders: No CVA: No COPD: No CHF: No Dementia: No Diabetes: No GI Disorders: No Disorders: No HTN: No Hypercholesterolemia: No Liver Disease: No Psychiatric Problems: Yes (PANIC ATTACKS) Seizures: No Thyroid Disease: No - Surgical History Abdominal Surgery: No Appendectomy: Yes Cardiac Surgery: No Cholecystectomy: No Lung Surgery: No Neurologic Surgery: Yes (herniated disc,scoliosis) Orthopedic Surgery: No - Immunization History Immunization Up to Date: Yes - Psycho/Social/Smoking Cessation Hx Anxiety: Yes Suicidal Ideation: No Smoking Status: Yes Smoking History: Current every day smoker Have you smoked in the past 12 months: Yes Number of Cigarettes Smoked Daily: 7 Cigars Per Day: 0 Information on smoking cessation initiated: No 'Breaking Loose' booklet given: 10/24/16 Hx Alcohol Use: No Drug/Substance Use Hx: No Substance Use Type: None, Prescribed Hx Substance Use Treatment: No <Bruna Norris - Last Filed: 12/19/16 09:24> - Past Medical History Allergies/Adverse Reactions: Allergies Allergy/AdvReac Type Severity Reaction Status Date / Time No Known Allergies Allergy Verified 12/17/16 17:47 Home Medications: Ambulatory Orders FENTANYL 75mcg PATCH [DURAGESIC 75mcg PATCH -] 75 mcg TD Q72H 01/24/13 Gabapentin 800 mg PO ASDIR 12/03/14 Oxycodone HCl/Acetaminophen [Percocet 10-325 mg Tablet] 1 each PO ASDIR Gabapentin [Neurontin [DO NOT STOCK]] 800 mg PO DAILY #5 tablet 10/24/16 Oxycodone HCl/Acetaminophen [Percocet 10-325 mg Tablet] 1 each PO BID PRN #10 tablet MDD 2 tabs 10/24/16 Carisoprodol [Soma] 0 mg PO DAILY 12/17/16 Review of Systems - Review of Systems Able to Perform ROS?: Yes Comments:: 12/17/16 19:04 GENERAL/CONSTITUTIONAL: No: fever, chills, weakness, loss of appetite. HEAD, EYES, EARS, NOSE AND THROAT: No: change in vision, ear pain, discharge, sore throat, throat swelling. CARDIOVASCULAR: No: chest pain, lightheadedness, palpitations, syncope RESPIRATORY: No: cough, shortness of breath, wheezing, hemoptysis, stridor. GASTROINTESTINAL: No: nausea, vomiting, abdominal cramping, diarrhea, rectal bleeding, constipation. GENITOURINARY: No: dysuria, hematuria, frequency, urgency, flank pain. MUSCULOSKELETAL:Yes: +right foot pain, +right leg pain, +right foot swelling. No: back pain, neck pain, joint pain, muscle swelling or pain SKIN AND BREASTS: No: lesions, pallor, rash or easy bruising. NEUROLOGIC: No: headache, vertigo, paresthesias, weakness ENDOCRINE: No: unexplained weight gain or loss HEMATOLOGIC/LYMPHATIC: No: anemia, easy bleeding, swelling nodes <Brand,Giomilsy - Last Filed: 12/17/16 19:06> *Physical Exam - Vital Signs Last Vital Signs Temp Pulse Resp BP Pulse Ox 98.8 F 92 H 18 131/70 98 12/17/16 17:47 12/17/16 17:47 12/17/16 17:47 12/17/16 17:47 12/17/16 17:47 - Physical Exam Comments: 12/17/16 19:04 GENERAL: The patient is in no acute distress. HEAD: Normal with no signs of trauma. EYES: PERRLA, EOMI, sclera anicteric, conjunctiva clear. ENT: Ears normal, nares patent, oropharynx clear without exudates. Moist mucous membranes. NECK: Normal range of motion, supple without lymphadenopathy, JVD, or masses. LUNGS: Breath sounds equal, clear to auscultation bilaterally. No wheezes, and no crackles. HEART:Regular rate and rhythm, normal S1 and S2 without murmur, rub or gallop. ABDOMEN: Soft, nontender, normoactive bowel sounds. No guarding, no rebound. EXTREMITIES: Normal range of motion, no edema. No clubbing or cyanosis. No erythema, or tenderness. NEUROLOGICAL: Cranial nerves II through XII grossly intact. Normal speech. No focal neurological deficits. MUSCULOSKELETAL: Patient reports right foot tenderness. Back non-tender to palpation, no CVA tenderness SKIN: Warm, Dry, normal turgor, no rashes or lesions noted. <Gage Brand - Last Filed: 12/17/16 19:06> - Vital Signs Last Vital Signs Temp Pulse Resp BP Pulse Ox 98.8 F 92 H 18 131/70 98 12/17/16 17:47 12/17/16 17:47 12/17/16 17:47 12/17/16 17:47 12/17/16 17:47 <Bruna Norris - Last Filed: 12/19/16 09:24> Medical Decision Making - Medical Decision Making 12/17/16 18:01 A portion of this note was documented by scribe services under my direction. I have reviewed the details of the note, within reason, and agree with the documentation with the following case summary and management plan written by me. Nursing documentation reviewed and incorporated into medical decision making 12/17/16 19:09 61 o F with a history of chronic pain, panic attacks presents to the ER with a complaint of right toe pain Pt states that approximately 1 month ago, She had a callous on the great toe which she attempted to take off Since then, she had been dressing wound with bandaid no local erythema no drainage no fevers or chills Pt has reported foot swelling I do not see evidence of this 12/19/16 09:15 Xray negative for fracture Will discharge to home Will ask pt to follow up with podiatry return to the ER for any other concerns or complaints <Bruna Norris - Last Filed: 12/19/16 09:24> *DC/Admit/Observation/Transfer - Attestations Scribe Attestion: 12/17/16 19:07 Documentation prepared by Gage Brand, acting as medical assistant supervisor for Bruna Norris MD. <Gage Brand - Last Filed: 12/17/16 19:06> - Discharge Dispostion Admit: No <Bruna Norris - Last Filed: 12/19/16 09:24> Diagnosis at time of Disposition: Foot pain, right - Discharge Dispostion Disposition: HOME Condition at time of disposition: Stable - Referrals Referrals: Yvonne Gomes MD [Staff Physician] - - Patient Instructions Printed Discharge Instructions: DI for Foot Pain Additional Instructions: Ms Becker Thank you so much for coming in to the ER today Please continue to take your medications as prescribed You MUST follow up with the market investigator for re evaluation Your x ray will be officially read tomorrow If there is anything concerning, we will contact you In the mean time Please avoid tight shoes Please keep callous covered as you have been doing Do not monitor yourself for red skin on your toe Keep leg elevated when your are sitting
== END 2016-12-17 19:26 | disposition home or self-care (01) ==
LOC: FER 17:45
DX: M79.671 Pain in right foot (principal); F41.9 Anxiety disorder, unspecified; F17.210 Nicotine dependence, cigarettes, uncomplicated
CPT/HCPCS: 73630-TC-RT; 99282-25

== ENCOUNTER 2017-03-19 15:39 | Emergency (ER) | payer SELFPAY ==
[2017-03-19 15:52] VITALS: BP 157/89; PULSE 92; TEMP 98.8; BMI 19.1
--- NOTE | 2017-03-19 15:52 | PDOC ---
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 Pt denies any acute complains but reports chronic lower back and BLE pain. Denies any new pain. Denies weakness/numbness. Denies saddle anesthesia/incontinence. She presents to ER requesting fentanyl patches and percocets, stating that she still has some gabapentin left. Pt states that she is unable to see her pain management doctor, Dr. Chris Reese, until Thursday. I personally spoke with Dr. Reese's office, and they report that patient MISSED her appointment last week. They confirmed availability tomorrow for pt to see Dr. Reese. Past History - Past Medical History Allergies/Adverse Reactions: Allergies Allergy/AdvReac Type Severity Reaction Status Date / Time No Known Allergies Allergy Verified 03/19/17 15:46 Home Medications: Ambulatory Orders FENTANYL 75mcg PATCH [DURAGESIC 75mcg PATCH -] 75 mcg TD Q72H 01/24/13 Gabapentin 800 mg PO ASDIR 12/03/14 Oxycodone HCl/Acetaminophen [Percocet 10-325 mg Tablet] 1 each PO ASDIR Gabapentin [Neurontin [DO NOT STOCK]] 800 mg PO DAILY #5 tablet 10/24/16 Oxycodone HCl/Acetaminophen [Percocet 10-325 mg Tablet] 1 each PO BID PRN #10 tablet MDD 2 tabs 10/24/16 Carisoprodol [Soma] 0 mg PO DAILY 12/17/16 Anemia: No Asthma: No Cancer: No Cardiac Disorders: No CVA: No COPD: No CHF: No Dementia: No Diabetes: No GI Disorders: No Disorders: No HTN: No Hypercholesterolemia: No Liver Disease: No Psychiatric Problems: Yes (PANIC ATTACKS) Seizures: No Thyroid Disease: No - Surgical History Abdominal Surgery: No Appendectomy: Yes Cardiac Surgery: No Cholecystectomy: No Lung Surgery: No Neurologic Surgery: Yes (herniated disc,scoliosis) Orthopedic Surgery: No - Immunization History Immunization Up to Date: Yes - Suicide/Smoking/Psychosocial Hx Smoking Status: Yes Smoking History: Current every day smoker Have you smoked in the past 12 months: Yes Number of Cigarettes Smoked Daily: 7 Cigars Per Day: 0 'Breaking Loose' booklet given: 10/24/16 Hx Alcohol Use: No Drug/Substance Use Hx: No Substance Use Type: None, Prescribed Hx Substance Use Treatment: No Review of Systems - Review of Systems Comments:: 03/19/17 15:49 "GENERAL/CONSTITUTIONAL: No fever or chills. No weakness. HEAD, EYES, EARS, NOSE AND THROAT: No change in vision. No ear pain or discharge. No sore throat. CARDIOVASCULAR: No chest pain or shortness of breath. RESPIRATORY: No cough, wheezing, or hemoptysis. GASTROINTESTINAL: No nausea, vomiting, diarrhea or constipation. GENITOURINARY: No dysuria, frequency, or change in urination. MUSCULOSKELETAL: + back pain SKIN: No rash NEUROLOGIC: No headache, vertigo, loss of consciousness, or change in strength/ sensation. ENDOCRINE: No increased thirst. No abnormal weight change. HEMATOLOGIC/LYMPHATIC: No anemia, easy bleeding, or history of blood clots. ALLERGIC/IMMUNOLOGIC: No hives or skin allergy. " *Physical Exam - Physical Exam Comments: 03/19/17 15:49 "GENERAL: Awake, alert, and fully oriented, in no acute distress HEAD: No signs of trauma EYES: PERRLA, EOMI, sclera anicteric, conjunctiva clear ENT: Auricles normal inspection, hearing grossly normal, nares patent, oropharynx clear without exudates. Moist mucosa NECK: Nontender, no stepoffs, Normal ROM, supple, no lymphadenopathy, JVD, or masses LUNGS: Breath sounds equal, clear to auscultation bilaterally. No wheezes, and no crackles HEART: Regular rate and rhythm, normal S1 and S2, no murmurs, rubs or gallops ABDOMEN: Soft, nontender, normoactive bowel sounds. No guarding, no rebound. No masses BACK: severe kyphoscoliosis, no stepoffs, +paraspinal TTP in lumbar area EXTREMITIES: Normal range of motion, no edema. No clubbing or cyanosis. No cords, erythema, or tenderness NEUROLOGICAL: Cranial nerves II through XII intact. 5/5 strength and sensation in all extremities, Normal speech, normal gait SKIN: Warm, Dry, normal turgor, no rashes or lesions noted. " Medical Decision Making - Medical Decision Making 03/19/17 15:49 61 F with chronic pain and opioid dependency presenting to ER requesting pain meds. Pt with NO acute complaints. I discussed importance of consistent follow up with Dr. Reese, her pain management doctor. I will give single dose of percocet here, but will not refill any prescriptions as pt is actively being managed by Dr. Reese. - Percocet x1 - DC with pain management f/u *DC/Admit/Observation/Transfer Diagnosis at time of Disposition: Medication refill - Discharge Dispostion Disposition: HOME Condition at time of disposition: Stable - Patient Instructions Additional Instructions: Follow up with Dr. Reese tomorrow. He is expecting you. Return to the ER if you experience worsening pain, numbness, weakness, or any other concerning symptoms. - Attestations Physician Attestion: 03/19/17 16:17 I, Dr. Jethro Cason MD, attest that this document has been prepared under my direction and personally reviewed by me in its entirety. I further attest, that it accurately reflects all work, treatment, procedures and medical decision -making performed by me.
== END 2017-03-19 16:27 | disposition home or self-care (01) ==
LOC: FER 15:39
DX: Z76.0 Encounter for issue of repeat prescription (principal)
CPT/HCPCS: 99281-25

== ENCOUNTER 2017-05-31 15:43 | Inpatient (IN) | payer OTHER ==
--- NOTE | 2017-05-31 15:53 | PDOC ---
History of Present Illness - General Chief Complaint: Seizure Stated Complaint: SEIZURE Time Seen by Provider: 05/31/17 15:53 - History of Present Illness Initial Comments: 61 year old female with PMH of panic attacks, chronic back pain, and possible seizure disorder presenting with right lower leg pain and bleeding two days after an episode of conscious uncontrollable body shaking at home. Patient states that that she had an episode of shaking on Thursday night during which she was completely conscious but had no control over her body. During this episode she had a fall during which she fell and folded her right leg. She did not have bowel or bladder incontinence. Afterward she felt some pain and noticed some bleeding at her right conner,. She then crawled back into bed and believed that her leg would improve in time. Her daughter visited her on Thursday and noticed the pool of blood at her bedside at which point she handed her a rag from the laundry then bought her a burger and onion rings. The patient stayed in bed all the rest of the day Thursday then spoke with her friend on the phone Thursday when she admitted that she was in a lot of pain. Her friend then came over and forced the patient to come the the ED. Overall, the patient is a poor historian of past events but has good immediate4 recall. She denies drug or substance abuse. She is not actively on seizure medication and no longer takes any anxiolitics for her panic attack. She does have Gabapentin and Fentanyl for chronic back pain. Her previous admission August for similar shaking episodes did not result in her being discharged on seizure medications, so we assume she does not have true seizure disorder. Denies fevers, chills, nausea, vomiting, chest pain, or diarrhea. 05/31/17 16:54 Past History - Past Medical History Allergies/Adverse Reactions: Allergies Allergy/AdvReac Type Severity Reaction Status Date / Time No Known Allergies Allergy Verified 05/31/17 15:49 Home Medications: Ambulatory Orders FENTANYL 75mcg PATCH [DURAGESIC 75mcg PATCH -] 75 mcg TD Q72H 01/24/13 Gabapentin 800 mg PO TID 12/03/14 Carisoprodol [Soma] 0 mg PO DAILY 12/17/16 Oxycodone HCl [Roxicodone -] 0 mg PO PRN 05/31/17 Anemia: No Asthma: No Cancer: No Cardiac Disorders: No CVA: No COPD: No CHF: No Dementia: No Diabetes: No GI Disorders: No Disorders: No HTN: No Hypercholesterolemia: No Liver Disease: No Psychiatric Problems: Yes (PANIC ATTACKS) Seizures: No Thyroid Disease: No - Surgical History Abdominal Surgery: No Appendectomy: Yes Cardiac Surgery: No Cholecystectomy: No Lung Surgery: No Neurologic Surgery: Yes (herniated disc,scoliosis) Orthopedic Surgery: No - Immunization History Immunization Up to Date: Yes - Suicide/Smoking/Psychosocial Hx Smoking Status: Yes Smoking History: Current every day smoker Have you smoked in the past 12 months: Yes Number of Cigarettes Smoked Daily: 7 Cigars Per Day: 0 'Breaking Loose' booklet given: 10/24/16 Hx Alcohol Use: No Drug/Substance Use Hx: No Substance Use Type: None, Prescribed Hx Substance Use Treatment: No Review of Systems - Review of Systems Able to Perform ROS?: Yes Constitutional: No: Chills, Diaphoresis, Fever HEENTM: No: Blurred Vision Respiratory: No: Cough, Orthopnea, Shortness of Breath Cardiac (ROS): No: Chest Pain, Lightheadedness ABD/GI: No: Nausea, Vomiting, Indigestion : No: Burning, Dysuria, Frequency Musculoskeletal: Yes: Back Pain, Muscle Pain Integumentary: Yes: Erythema, Lesions. No: Bruising Neurological: Yes: Paresthesia. No: Headache Psychiatric: Yes: Anxiety, Emotional Problems *Physical Exam - Physical Exam General Appearance: Yes: Appropriately Dressed. No: Apparent Distress HEENT: positive: EOMI, JOEL, Normal Voice Neck: positive: Trachea midline, Normal Thyroid, Supple. negative: Tender, Rigid Respiratory/Chest: positive: Lungs Clear, Normal Breath Sounds. negative: Chest Tender, Respiratory Distress, Accessory Muscle Use Cardiovascular: positive: Regular Rhythm, Regular Rate. negative: Murmur Gastrointestinal/Abdominal: positive: Normal Bowel Sounds, Flat, Soft. negative : Tender, Organomegaly Musculoskeletal: negative: Normal Inspection (Right LE slightly externally rotated and appears unstable at the lower third of the tibia with open wound with slight bleeding from the site. TTP over medial and anterior portion of lower 1/3 of the shjin without TTP anabel gthe lateral edge of the right leg at the fibula. ) Extremity: positive: Normal Capillary Refill. negative: Normal Inspection, Normal Range of Motion Integumentary: positive: Warm. negative: Normal Color, Dry Neurologic: positive: Fully Oriented, Alert. negative: Normal Mood/Affect, Normal Response (Hypersentive to any idea of moving her leg. Generally very wary of any medical care and medical providers. Has very poor recollectin beyond the last few weeks.) ED Treatment Course - LABORATORY CBC & Chemistry Diagram: 05/31/17 17:10 05/31/17 17:10 Medical Decision Making - Medical Decision Making 61 year old female with history of panic attacks and tremors in the past presenting with RLE pain, deformity, and bleeding. Denies drinking but her shaking episode may have been withdrawal tremors. Unsure if this could be related to over narcotization from her fentanyl and oxycodone usage. Her history of panic attacks and strange tremors could point to some sort of panic attack. No cardiac history or cardiac syncope prodrome (lack of palpitations, chest pain, lightheadedness, diaphoresis). Given all these possible causes for her fall, further workup will be needed. Labs are unrevealing currently. A CT head may be needed but currently deferred given orientation and lack of focal signs in the context of acute anxiety around the more pressing issue of her open RLE fracture. X ray revelead comminuted tibial fracture with three spiral fractures. Patient was splinted and further films were taken after ortho (Dr. Garcia's PA spoken to) was consulted and agreed to evaluate the patient tonight. Patient required a total dose of morphine 2 and dilaudid 2 for pain with IV vanc and IV zosyn administered as well. Patient admitted to Dr. Frye's service. Dr. Nevarez of the night ED staff was notified of the patient's disposition prior to my departure. 05/31/17 17:55 *DC/Admit/Observation/Transfer Diagnosis at time of Disposition: Open displaced comminuted fracture of shaft of right tibia - Discharge Dispostion Condition at time of disposition: Stable Admit: Yes - Referrals - Patient Instructions - Post Discharge Activity
--- NOTE | 2017-05-31 16:12 | PDOC ---
Attending Attestation - Resident Resident Name: Girma Valadez - ED Attending Attestation I have performed the following: I have examined & evaluated the patient, The case was reviewed & discussed with the resident, I agree w/resident's findings & plan, Exceptions are as noted - HPI HPI: 05/31/17 16:47 Fall Thursday...... Open Fracture...... Never saught care, just stayed in bed. Friend called 911 today after she called her - Physicial Exam PE: 05/31/17 16:50 Open Fracture Tibia where middle 1/3 intersects with distal 1/3. Fibula non- tender - Medical Decision Making 05/31/17 16:53 I believe the patient may have had an alcohol withdrawal seizure or may have been otherwise impaired to not seek treatment for essentially three days time. I agree with Dr. Valadez's Assessment and Plan.
[2017-05-31 16:14] VITALS: BMI 26.6
[2017-05-31] MEDS ORDERED: DIPHTH,PERTUSS(ACELL),TET 0.5 ML DISP.SYRIN IM ONE (16:46)
[2017-05-31] MEDS ORDERED: LORazepam 1 MG TABLET PO ONE (16:53)
[2017-05-31] MEDS ORDERED: FOLIC ACID INJECTION - 1 MG, THIAMINE HCL 100 MG, MULTIVIT INJECTION ADULT 10 ML in SOD... IVPB ONE (16:54)
[2017-05-31] MEDS ORDERED: morphine CARPU-JECT 2 MG/1 ML DISP.SYRIN IVPUSH ONE (16:59)
[2017-05-31] MEDS ORDERED: morphine SULFATE 4 MG/ML VIAL ONE (17:04)
[2017-05-31 17:23] LABS: MCH 31.2 pg (25.7-33.7); MCHC 33.3 g/dl (32.0-36.0); MEAN CELL VOLUME 93.7 fl (80-96); MEAN PLT VOLUME 9.2 fl (7.5-11.1); PLATELET COUNT 309 K/MM3 (134-434); RDW 13.8 % (11.6-15.6); WHITE BLOOD COUNT 12.9 K/mm3 (4.0-10.0)
[2017-05-31 17:34] LABS: INR 1.04 (0.82-1.09); PROTHROMBIN TIME (PATIENT) 11.8 SEC (9.98-11.88)
[2017-05-31] MEDS ORDERED: VANCOMYCIN 1,500 MG in DEXTROSE 5%-WATER - 500 ML IVPB ONE (17:58)
[2017-05-31 18:10] LABS: ALBUMIN 4.1 g/dl (3.4-5.0); ANION GAP 9 (8-16); CALCIUM 9.4 mg/dL (8.5-10.1); CO2 26 mmol/L (21-32); CREATININE 0.9 mg/dL (0.55-1.02); GLUCOSE,RANDOM 106 mg/dL (74-106); SGOT/AST 22 U/L (15-37); SGPT/ALT 16 U/L (12-78)
[2017-05-31 18:11] LABS: ALK PHOS 92 U/L (45-117); BILIRUBIN,TOTAL 0.3 mg/dL (0.2-1.0); TOT PROT 7.2 g/dl (6.4-8.2)
[2017-05-31 18:17] LABS: CPK 281 IU/L (26-192); TROPONIN I < 0.02 ng/ml (0.00-0.05)
[2017-05-31] MEDS ORDERED: HYDROmorphone HCL CARPU-JECT 1 MG/1 ML DISP.SYRIN IVPUSH ONE ×2 (18:27→19:06)
[2017-05-31] MEDS ORDERED: HYDROmorphone HCL CARPU-JECT 1 MG/1 ML DISP.SYRIN ONE ×2 (18:29→19:07)
[2017-05-31] MEDS ORDERED: PIPERACIL/TAZOB 3.375 GM 3.375 GM/50 ML PREMIX IVPB ONE (18:48)
--- NOTE | 2017-05-31 19:18 | PN ---
Teaching Attending Note Name of Resident: Boone Caruso ATTENDING PHYSICIAN STATEMENT I saw and evaluated the patient. I reviewed the resident's note and discussed the case with the resident. I agree with the resident's findings and plan as documented. SUBJECTIVE: 61 F with pmhx of chronic back pain, had tremor like episodes in 09/05 ? Seizure , who presents with right leg pain and bleeding since Thursday. States she had a fall on Thursday in which her right leg folded underneath her. Did not notice any chest pain, pressure, dizziness or lightheadedness prior to fall. States leg just gave out underneath her because she had a "out of body" experience. Noticed tremors after in which she was awake and aware. States this may be due to anxiety. No current chest pain, pressure, dizziness, headache or lightheadedness. States she noticed some bleeding on the right conner. At which point she went back to bed, she was noticed by her friend today to be in a lot of pain and brought to ED. ED COURSE: Open Fx. or R. Tibia, Vanco/Zosyn given, ortho called OBJECTIVE: Physical: VS: Vital Signs Period Temp Pulse Resp BP Sys/Gruber Pulse Ox Last 24 Hr 99.9 F 101 18 137/80 100 GEN:NAD, resting in bed, AA0X3 HEENT: NCAT, PERRL, Throat without erythema or exudates CARD: RRR S1, S2 RESP: CTAB ABD: BSx4, NTD to palpation EXT: Pulses +2/4, RLE in Splint CBCD WBC 12.9 K/mm3 (4.0-10.0) H D 05/31/17 17:10 RBC 4.55 M/mm3 (3.60-5.2) 05/31/17 17:10 Hgb 14.2 GM/dL (10.7-15.3) D 05/31/17 17:10 Hct 42.6 % (32.4-45.2) D 05/31/17 17:10 MCV 93.7 fl (80-96) 05/31/17 17:10 MCHC 33.3 g/dl (32.0-36.0) 05/31/17 17:10 RDW 13.8 % (11.6-15.6) 05/31/17 17:10 Plt Count 309 K/MM3 (134-434) 05/31/17 17:10 MPV 9.2 fl (7.5-11.1) D 05/31/17 17:10 CMP Sodium 139 mmol/L (136-145) 05/31/17 17:10 Potassium 4.6 mmol/L (3.5-5.1) 05/31/17 17:10 Chloride 104 mmol/L (98-107) 05/31/17 17:10 Carbon Dioxide 26 mmol/L (21-32) 05/31/17 17:10 Anion Gap 9 (8-16) 05/31/17 17:10 BUN 17 mg/dL (7-18) D 05/31/17 17:10 Creatinine 0.9 mg/dL (0.55-1.02) 05/31/17 17:10 Creat Clearance w eGFR > 60 (>60) 05/31/17 17:10 Random Glucose 106 mg/dL (74-106) D 05/31/17 17:10 Calcium 9.4 mg/dL (8.5-10.1) 05/31/17 17:10 Total Bilirubin 0.3 mg/dL (0.2-1.0) D 05/31/17 17:10 AST 22 U/L (15-37) D 05/31/17 17:10 ALT 16 U/L (12-78) D 05/31/17 17:10 Alkaline Phosphatase 92 U/L (45-117) D 05/31/17 17:10 Total Protein 7.2 g/dl (6.4-8.2) D 05/31/17 17:10 Albumin 4.1 g/dl (3.4-5.0) D 05/31/17 17:10 CARDIAC ENZYMES Creatine Kinase 281 IU/L (26-192) H 05/31/17 17:10 Troponin I < 0.02 ng/ml (0.00-0.05) 05/31/17 17:10 ASSESSMENT AND PLAN: chronic back pain, had tremor like episodes in 09/05 ? Seizure, who presents with right leg pain and bleeding since Thursday. States she had a fall on Thursday in which her right leg folded underneath her found to have a open wound to R. Tibia 1.) Right Tibial Open Fracture - Ortho consulted - Coags, CBC, Type & Screen - C/W Vanco/Zosyn - ID consult - Tetanus, recieved in ED - Blood Cx 2.) Fall ? - Seizure (less likely as no loc) - Possibly overuse of home pain meds/Fentanyl - U tox - B12, Folate, TSh - CT HEAD - Neuro Consult - Pain managment when D/c'd 3.) Dvt PPx - Mod Risk - Scds due to recent sx -
[2017-05-31] MEDS ORDERED: PIPERACILLIN/TAZOB 3.375 GM 3.375 GM/50 ML BAG IVPB ONE (19:46)
--- NOTE | 2017-05-31 20:16 | HP ---
CHIEF COMPLAINT: seizures HISTORY OF PRESENT ILLNESS: Patient is a 61 year old female with PMHx of panic attacks, chronic back pain, came to the ED because of right lower leg pain and bleeding that started Thursday night after uncontrollable shaking movements. Patient was doing the laundry and says she felt "weird", as if she wasn't in her body. She went to bed and then patient says started having uncontrollable shaking movements for a few seconds. Patient then had a second episode of shaking movements while doing the laundry and then fell and twisted her right leg. She said she might have hit her leg on some screw or dresser. She denies loss of consciousness, fecal incontinence, urine incontinence, tongue biting, post-ictal state. She was conscious throughout the shaking movements and after. Patient then crawled back into bed thinking she will heal. Patient said she experienced similar symptoms in August. Her daughter came to visit today and found her on her bed with a pool of blood and decided to call 911. She mentions her daughter has epilepsy. Patient is not taking any seizure medications and is on Gabpentin and Fentanyl for chronic back pain. She denies fevers, chest pain, urinary problems, chills, night sweats, dizziness, SOB, numbness and tingling. ER course was notable for: (1) X ray- Tibial fracture open fracture (2) Vanc/Zosyn (3) Tetanus shot Recent Travel: n/A PAST MEDICAL HISTORY: chronic back pain, panic attacks PAST SURGICAL HISTORY: back surgery in the 80's. Social History: Smokin pack per day Alcohol: denies Drugs: denies Family History: Allergies No Known Allergies Allergy (Verified 05/31/17 15:49) DENIES HOME MEDICATIONS: Home Medications Medication Instructions Recorded FENTANYL 75mcg PATCH [DURAGESIC 75 mcg TD Q72H 01/24/13 75mcg PATCH -] Gabapentin 800 mg PO TID 12/03/14 Carisoprodol [Soma] 0 mg PO DAILY 12/17/16 Oxycodone HCl [Roxicodone -] 0 mg PO PRN 05/31/17 REVIEW OF SYSTEMS CONSTITUTIONAL: Absent: fever, chills, diaphoresis, generalized weakness, malaise, loss of appetite, weight change HEENT: Absent: throat pain, throat swelling, difficulty swallowing, mouth swelling, ear pain, eye pain, visual changes CARDIOVASCULAR: Absent: chest pain, syncope, palpitations, irregular heart rate, lightheadedness , peripheral edema RESPIRATORY: Absent: cough, shortness of breath, dyspnea with exertion, orthopnea, wheezing, stridor, hemoptysis GASTROINTESTINAL: Absent: abdominal pain, abdominal distension, nausea, vomiting, diarrhea, constipation, melena, hematochezia GENITOURINARY: Absent: dysuria, frequency, urgency, hesitancy, hematuria, flank pain, genital pain MUSCULOSKELETAL: Absent: myalgia, arthralgia, joint swelling, back pain, neck pain SKIN: Absent: rash, itching, pallor HEMATOLOGIC/IMMUNOLOGIC: Absent: easy bleeding, easy bruising, lymphadenopathy, frequent infections ENDOCRINE: Absent: unexplained weight gain, unexplained weight loss, heat intolerance, cold intolerance NEUROLOGIC: Absent: headache, focal weakness or paresthesias, dizziness, unsteady gait, seizure, mental status changes, bladder or bowel incontinence PSYCHIATRIC: Absent: anxiety, depression, suicidal or homicidal ideation, hallucinations. PHYSICAL EXAMINATION Vital Signs - 24 hr 05/31/17 05/31/17 05/31/17 15:45 19:42 19:55 Temperature 99.9 F H 98.1 F 99.1 F Pulse Rate 101 H Pulse Rate [ 97 H 102 H Left Radial] Respiratory 18 18 18 Rate Blood Pressure 137/80 Blood Pressure 130/69 161/89 [Left Arm] O2 Sat by Pulse 100 99 98 Oximetry (%) 05/31/17 19:57 Temperature Pulse Rate Pulse Rate [ Left Radial] Respiratory Rate Blood Pressure Blood Pressure [Left Arm] O2 Sat by Pulse 96 Oximetry (%) GENERAL: Awake, alert, and fully oriented, in mild distress from pain. HEAD: Normal with no signs of trauma. EYES: Pupils equal, round and reactive to light, extraocular movements intact, sclera anicteric, conjunctiva clear. EARS, NOSE, THROAT: oropharynx clear without exudates. Moist mucous membranes. NECK: supple without lymphadenopathy LUNGS: Breath sounds equal, clear to auscultation bilaterally. No wheezes, and no crackles. No accessory muscle use. HEART: tachy and regular rhythm, normal S1 and S2 without murmur, rub or gallop. ABDOMEN: Soft, nontender, not distended, normoactive bowel sounds MUSCULOSKELETAL: limited RLE examination. Normal range of motion LLE. No bony deformities or tenderness. UPPER EXTREMITIES: 2+ pulses, warm, well-perfused. No cyanosis. No clubbing. No peripheral edema. LOWER EXTREMITIES: 2+ pulses b/l , warm, well-perfused. RLE swelling present. RLE puncture wound measuring 1x1 cm in upper 2/3 and lower 1/3 of medial aspect of tibia. NEUROLOGICAL: Cranial nerves II-XII intact. Normal speech. PSYCHIATRIC: Cooperative. Good eye contact. Appropriate mood and affect. SKIN: Warm, dry, normal turgor, no rashes or lesions noted, normal capillary refill. Laboratory Results - last 24 hr 05/31/17 05/31/17 05/31/17 17:10 17:10 17:10 WBC 12.9 H D RBC 4.55 Hgb 14.2 D Hct 42.6 D MCV 93.7 MCH 31.2 MCHC 33.3 RDW 13.8 Plt Count 309 MPV 9.2 D Manual Slide Review Platelet Comment PT with INR 11.80 INR 1.04 Sodium 139 Potassium 4.6 Chloride 104 Carbon Dioxide 26 Anion Gap 9 BUN 17 D Creatinine 0.9 Creat Clearance w eGFR > 60 Random Glucose 106 D Calcium 9.4 Total Bilirubin 0.3 D AST 22 D ALT 16 D Alkaline Phosphatase 92 D Creatine Kinase Creatine Kinase Index CK-MB (CK-2) Troponin I Total Protein 7.2 D Albumin 4.1 D Blood Type Antibody Screen 05/31/17 05/31/17 17:10 17:10 WBC RBC Hgb Hct MCV MCH MCHC RDW Plt Count MPV Manual Slide Review Platelet Comment PT with INR INR Sodium Potassium Chloride Carbon Dioxide Anion Gap BUN Creatinine Creat Clearance w eGFR Random Glucose Calcium Total Bilirubin AST ALT Alkaline Phosphatase Creatine Kinase 281 H Creatine Kinase Index 0.4 CK-MB (CK-2) 1.316 Troponin I < 0.02 Total Protein Albumin Blood Type O NEGATIVE Antibody Screen Negative ASSESSMENT/PLAN: Patient is a 61 year old female with PMHx of panic attacks, chronic back pain, presented because of Fall and was found to have a tibial fracture with a possible seizure disorder. #Possible seizure/Panic tremors -Possibly medication induced. She is on fentanyl/neurontin and "Simply sleep" -Family hx of Seizure (daughter) -EEG unremarkable on 08/2016 -frequent neuro checks -seizure precautions -Neuro Consulted: Bobbi Whelan -CT head without contrast -UTOX -FU TSH/B12/Folate #Right Tibial Open Fracture -Ortho on board -Continue with Vanc/Zosyn in view of compound fracture -Limb elevation -Frequent pulse checks -Morphine PRN for pain -NPO for now -IV fluids NS@75 cc/ hour #Chronic back pain -on fentanyl patch, dose needs to be evaluated -may be cause of frequent falls or tremors. #FEN -IV fluids NS @ 75cc/hour -WNL -NPO #PPX -SCDs -heparin held for possible surgery -Protonix 40mg Daily Dispo: Med-surge Visit type - Emergency Visit Emergency Visit: Yes ED Registration Date: 05/31/17 Care time: The patient presented to the Emergency Department on the above date and was hospitalized for further evaluation of their emergent condition. - New Patient This patient is new to me today: Yes Date on this admission: 06/01/17 - Critical Care Critical Care patient: No
[2017-05-31] MEDS ORDERED: VANCOMYCIN 1,000 MG in DEXTROSE 5%-WATER - 250 ML IVPB ONE (20:28)
[2017-05-31] MEDS: SODIUM CHLORIDE 1,000 ML IV SCH (21:29)
[2017-05-31] MEDS: morphine SULFATE 4 MG/ML VIAL IVPUSH PRN (22:32)
[2017-06-01] MEDS ORDERED: VANCOMYCIN 1 GRAM (PRE-DOCKED) 1,000 MG/250 ML BAG IVPB ONE ×3 (00:30→09:32)
[2017-06-01] MEDS: HYDROmorphone HCL CARPU-JECT 2 MG/1 ML DISP.SYRIN IVPUSH ONE ×2 (01:18→09:50)
[2017-06-01] MEDS: morphine SULFATE 4 MG/ML VIAL IVPUSH PRN (03:40)
[2017-06-01] MEDS ORDERED: PIPERACILLIN/TAZOB 3.375 GM/50 ML PRE-DOCKED IVPB ONE ×2 (04:00→06:00)
[2017-06-01] MEDS: SODIUM CHLORIDE 1,000 ML IV SCH ×3 (05:18→21:47)
--- NOTE | 2017-06-01 06:50 | CONS ---
ADDENDUM DATE OF CONSULTATION: 05/31/2017 PHYSICAL EXAMINATION: General: This is a well-appearing female in no acute distress. She is alert and oriented x3. She is physically anxious. Extremities: Examination of the right lower extremity demonstrates a puncture wound with mild surrounding erythema and a pure sanguinous drainage over the medial distal 3rd legs. There is mild swelling. There is no gross evidence for infection. The knee is not tender. There is tenderness over the proximal fibula. The ankle is slightly tender. The foot is not tender. Specifically, the patient is grossly intact to light touch. There is a 1+ DP pulse which is slightly decreased compared to the contralateral. Radiographs reviewed. There is a displaced spiral fracture of the tibia and fibula. The fibular component is just below the fibular neck. The tibial component starts at distal third tibia and spirals down to the tibial metaphysis. No definite extension is seen to the ankle joint. ASSESSMENT: Open tibia-fibula fracture, grade 2, subacute. PLAN: I reviewed today's findings with the patient and her friend who is at the bedside as well. She was also examined by Shan Green, our physician medical receptionist assistant. I advised that this is a somewhat unusual situation. Typically, an open fracture is a surgical emergency and is treated immediately with surgical debridement. For a fracture like this, I would have recommended definitive fixation either with a weight or intramedullary nail, depending on what CT scan showed about the ankle joint and the . That being said, this is a unique situation, and this is a now subacute fracture. There is not even the time for colonization of the wound. I advised her, that given her smoking status and for the issue of the wound, I was very concerned about the potential for infection. She was therefore started on IV antibiotics while in the emergency department. In addition, I do not recommend initial internal fixation due to infection risk. Rather, I believe that this is best done in a staged procedure. I have arranged to have external fixation device brought in, and this will be ready by early tomorrow morning. The patient will be brought to the OR tomorrow for this procedure. We will open the wound, debride the fracture site, reduce the fracture site, and apply an external fixator to maintain fracture alignment temporarily. We will then observe the wound over the next several days. If the wound is copacetic by the end of the week, we can consider going in for a definitive procedure to remove the external fixation and place either a nail plate depending on which is more appropriate. I discussed the option of a single procedure such as nail or plate and I believe this carries increased risk of infection. We discussed there is no great literature to apply to this case as generally open fractures are not delayed for treatment for 2 days but this is based on the best possible analysis to literature and available material. I reviewed surgical risks in detail including bleeding, infection, neurovascular injury, need for further surgery (in this case, we are planning on more surgeries), postoperative pain and stiffness, nonunion, malunion, hardware infection or cutout. We discussed medical risks such as heart attack, stroke, DVT, PE or . I reviewed with the patient there is a chance she will develop chronic osteomyelitis or perhaps even have amputation due to this type of injury. I addressed all the patient's questions and concerns. She voiced understanding and is electing to proceed. We will proceed in the morning. ARYA VASQUEZ M.D. [id number]
[2017-06-01] MEDS ORDERED: MIDAZOLAM HCL 2 MG/2 ML SINGLE DOSE VIAL ONE ×2 (07:12→09:09)
[2017-06-01] MEDS ORDERED: PROPOFOL 20 ML ONE ×3 (07:12)
[2017-06-01] MEDS ORDERED: fentaNYL CITRATE 250 MCG/5 ML VIAL ONE (07:12)
[2017-06-01] MEDS ORDERED: ROCURONIUM BROMIDE 50 MG/5 ML VIAL ONE (07:13)
[2017-06-01] MEDS ORDERED: SUCCINYLCHOLINE CHLORIDE 200 MG/10 ML VIAL ONE (07:19)
[2017-06-01] MEDS ORDERED: VANCOMYCIN 1,000 MG VIAL (RESTRICTED TO ID ONLY) IVPB ONE (07:20)
[2017-06-01] MEDS ORDERED: BACITRACIN 50,000 UNITS VIAL TP ONE (08:16)
[2017-06-01] MEDS: MIDAZOLAM HCL 2 MG/2 ML SINGLE DOSE VIAL IVPUSH ONE ×2 (09:00→09:20)
[2017-06-01] MEDS ORDERED: HYDROmorphone HCL CARPU-JECT 2 MG/1 ML DISP.SYRIN ONE (09:09)
[2017-06-01] MEDS ORDERED: ONDANSETRON 4 MG/2 ML VIAL IVPUSH PRN (09:17)
[2017-06-01] MEDS ORDERED: MIDAZOLAM HCL 2 MG/2 ML SINGLE DOSE VIAL IVPB ONE (09:18)
[2017-06-01] MEDS ORDERED: LACTATED RINGERS SOLUTION 1,000 ML IV SCH (09:30)
[2017-06-01] MEDS ORDERED: morphine SULFATE 4 MG/ML VIAL IVPUSH PRN (09:32)
[2017-06-01] MEDS ORDERED: ACETAMINOPHEN 325 MG TABLET (FP) PO PRN (09:32)
[2017-06-01] MEDS ORDERED: HYDROmorphone *PCA* 10MG/50ML DISP.SYRIN PCA ONE (09:56)
--- NOTE | 2017-06-01 09:58 | CONSULT ---
Consult - text type - Consultation Consultation Note: Neurology History of Present Illness 61 year old female with PMH of panic attacks, chronic back pain, and possible seizure disorder presenting with right lower leg pain and bleeding two days after an episode of reported body shaking at home. Reportedly, had an episode of shaking on Thursday night during which she was completely conscious but had no control over her body. During this episode she had a fall during which she fell and folded her right leg. She did not have bowel or bladder incontinence. Afterward she felt some pain and noticed some bleeding at her right conner. Reportedly, she then crawled back into bed and believed that her leg would improve in time. Her daughter visited her on Thursday and noticed the pool of blood. The patient stayed in bed all the rest of the day Thursday. Thursday she admitted that she was in a lot of pain. Her friend then came over and forced the patient to come the the ED. She is not actively on seizure medication and no longer takes any anxiolitics for her panic attack. She does have Gabapentin and Fentanyl for chronic back pain. She completed imaging and showed R tibia fx for which she is getting orthopedic operative management this morning. Past History - Past Medical History Allergies/Adverse Reactions: Allergies Allergy/AdvReac Type Severity Reaction Status Date / Time No Known Allergies Allergy Verified 05/31/17 15:49 Home Medications: Ambulatory Orders FENTANYL 75mcg PATCH [DURAGESIC 75mcg PATCH -] 75 mcg TD Q72H 01/24/13 Gabapentin 800 mg PO TID 12/03/14 Carisoprodol [Soma] 0 mg PO DAILY 12/17/16 Oxycodone HCl [Roxicodone -] 0 mg PO PRN 05/31/17 Anemia: No Asthma: No Cancer: No Cardiac Disorders: No CVA: No COPD: No CHF: No Dementia: No Diabetes: No GI Disorders: No Disorders: No HTN: No Hypercholesterolemia: No Liver Disease: No Psychiatric Problems: Yes (PANIC ATTACKS) Seizures: No Thyroid Disease: No - Surgical History Abdominal Surgery: No Appendectomy: Yes Cardiac Surgery: No Cholecystectomy: No Lung Surgery: No Neurologic Surgery: Yes (herniated disc,scoliosis) Orthopedic Surgery: No - Immunization History Immunization Up to Date: Yes - Suicide/Smoking/Psychosocial Hx Smoking Status: Yes Smoking History: Current every day smoker Have you smoked in the past 12 months: Yes Number of Cigarettes Smoked Daily: 7 Cigars Per Day: 0 'Breaking Loose' booklet given: 10/24/16 Hx Alcohol Use: No Drug/Substance Use Hx: No Substance Use Type: None, Prescribed Hx Substance Use Treatment: No Review of Systems - Review of Systems Able to Perform ROS?: Yes Constitutional: No: Chills, Diaphoresis, Fever HEENTM: No: Blurred Vision Respiratory: No: Cough, Orthopnea, Shortness of Breath Cardiac (ROS): No: Chest Pain, Lightheadedness ABD/GI: No: Nausea, Vomiting, Indigestion : No: Burning, Dysuria, Frequency Musculoskeletal: Yes: Back Pain, Muscle Pain Integumentary: Yes: Erythema, Lesions. No: Bruising Neurological: Yes: Paresthesia. No: Headache Psychiatric: Yes: Anxiety, Emotional Problems *Physical Exam - Physical Exam General Appearance: Yes: Appropriately Dressed. No: Apparent Distress HEENT: positive: EOMI, JOEL, Normal Voice Neck: positive: Trachea midline, Normal Thyroid, Supple. negative: Tender, Rigid Respiratory/Chest: positive: Lungs Clear, Normal Breath Sounds. negative: Chest Tender, Respiratory Distress, Accessory Muscle Use Cardiovascular: positive: Regular Rhythm, Regular Rate. negative: Murmur Gastrointestinal/Abdominal: positive: Normal Bowel Sounds, Flat, Soft. negative : Tender, Organomegaly Musculoskeletal: negative: Normal Inspection (Right LE slightly externally rotated and appears unstable at the lower third of the tibia with open wound with slight bleeding from the site. TTP over medial and anterior portion of lower 1/3 of the shjin without TTP anabel gthe lateral edge of the right leg at the fibula. ) Extremity: positive: Normal Capillary Refill. negative: Normal Inspection, Normal Range of Motion Integumentary: positive: Warm. negative: Normal Color, Dry Neurologic: positive: Fully Oriented, Alert. negative: Normal Mood/Affect, Normal Response (Hypersentive to any idea of moving her leg. Generally very wary of any medical care and medical providers. Has very poor recollectin beyond the last few weeks.) CBCD WBC 12.9 K/mm3 (4.0-10.0) H D 05/31/17 17:10 RBC 4.55 M/mm3 (3.60-5.2) 05/31/17 17:10 Hgb 14.2 GM/dL (10.7-15.3) D 05/31/17 17:10 Hct 42.6 % (32.4-45.2) D 05/31/17 17:10 MCV 93.7 fl (80-96) 05/31/17 17:10 MCHC 33.3 g/dl (32.0-36.0) 05/31/17 17:10 RDW 13.8 % (11.6-15.6) 05/31/17 17:10 Plt Count 309 K/MM3 (134-434) 05/31/17 17:10 MPV 9.2 fl (7.5-11.1) D 05/31/17 17:10 CMP Sodium 139 mmol/L (136-145) 05/31/17 17:10 Potassium 4.6 mmol/L (3.5-5.1) 05/31/17 17:10 Chloride 104 mmol/L (98-107) 05/31/17 17:10 Carbon Dioxide 26 mmol/L (21-32) 05/31/17 17:10 Anion Gap 9 (8-16) 05/31/17 17:10 BUN 17 mg/dL (7-18) D 05/31/17 17:10 Creatinine 0.9 mg/dL (0.55-1.02) 05/31/17 17:10 Creat Clearance w eGFR > 60 (>60) 05/31/17 17:10 Calcium 9.4 mg/dL (8.5-10.1) 05/31/17 17:10 Total Bilirubin 0.3 mg/dL (0.2-1.0) D 05/31/17 17:10 AST 22 U/L (15-37) D 05/31/17 17:10 ALT 16 U/L (12-78) D 05/31/17 17:10 Alkaline Phosphatase 92 U/L (45-117) D 05/31/17 17:10 Total Protein 7.2 g/dl (6.4-8.2) D 05/31/17 17:10 Albumin 4.1 g/dl (3.4-5.0) D 05/31/17 17:10 Medical Decision Making 61 year old female with PMH of panic attacks, chronic back pain, and possible seizure disorder presenting with right lower leg pain and bleeding two days after an episode of reported body shaking at home. Reportedly, had an episode of shaking on Thursday night during which she was completely conscious but had no control over her body. During this episode she had a fall during which she fell and folded her right leg. She did not have bowel or bladder incontinence. Afterward she felt some pain and noticed some bleeding at her right conner. Reportedly, she then crawled back into bed and believed that her leg would improve in time. Her daughter visited her on Thursday and noticed the pool of blood. The patient stayed in bed all the rest of the day Thursday. Thursday she admitted that she was in a lot of pain. Her friend then came over and forced the patient to come the the ED. She is not actively on seizure medication and no longer takes any anxiolitics for her panic attack. She does have Gabapentin and Fentanyl for chronic back pain. She completed imaging and showed R tibia fx for which she is getting orthopedic operative management this morning. Will order a CT head to confirm no acute changes. Unusual for patient to remain conscious and have seizure, event could have been convulsive syncope vs pseudoseizure. Would not start AEDS for one time event such as this especially with panic disorder underlying. Consider psych consult for anxiety management. Fall precautions. Fall up orthopedic rec'd.
[2017-06-01] MEDS ORDERED: PANTOPRAZOLE 40 MG TABLET (FP) PO SCH ×2 (10:00)
[2017-06-01] MEDS ORDERED: HYDROmorphone *PCA* 10MG/50ML DISP.SYRIN PCA SCH (10:15)
--- NOTE | 2017-06-01 10:20 | PN ---
Teaching Attending Note Name of Resident: Tiki Nguyen ATTENDING PHYSICIAN STATEMENT I saw and evaluated the patient. I reviewed the resident's note and discussed the case with the resident. I agree with the resident's findings and plan as documented. SUBJECTIVE: Patient is in pain. going for sx. OBJECTIVE: Vital Signs Temperature 98.1 F 06/01/17 06:00 Pulse Rate 83 06/01/17 06:00 Respiratory Rate 20 06/01/17 06:00 Blood Pressure 147/71 06/01/17 06:00 O2 Sat by Pulse Oximetry (%) 96 05/31/17 19:57 CBCD WBC 12.9 K/mm3 (4.0-10.0) H D 05/31/17 17:10 RBC 4.55 M/mm3 (3.60-5.2) 05/31/17 17:10 Hgb 14.2 GM/dL (10.7-15.3) D 05/31/17 17:10 Hct 42.6 % (32.4-45.2) D 05/31/17 17:10 MCV 93.7 fl (80-96) 05/31/17 17:10 MCHC 33.3 g/dl (32.0-36.0) 05/31/17 17:10 RDW 13.8 % (11.6-15.6) 05/31/17 17:10 Plt Count 309 K/MM3 (134-434) 05/31/17 17:10 MPV 9.2 fl (7.5-11.1) D 05/31/17 17:10 CMP Sodium 139 mmol/L (136-145) 05/31/17 17:10 Potassium 4.6 mmol/L (3.5-5.1) 05/31/17 17:10 Chloride 104 mmol/L (98-107) 05/31/17 17:10 Carbon Dioxide 26 mmol/L (21-32) 05/31/17 17:10 Anion Gap 9 (8-16) 05/31/17 17:10 BUN 17 mg/dL (7-18) D 05/31/17 17:10 Creatinine 0.9 mg/dL (0.55-1.02) 05/31/17 17:10 Creat Clearance w eGFR > 60 (>60) 05/31/17 17:10 Random Glucose 106 mg/dL (74-106) D 05/31/17 17:10 Calcium 9.4 mg/dL (8.5-10.1) 05/31/17 17:10 Total Bilirubin 0.3 mg/dL (0.2-1.0) D 05/31/17 17:10 AST 22 U/L (15-37) D 05/31/17 17:10 ALT 16 U/L (12-78) D 05/31/17 17:10 Alkaline Phosphatase 92 U/L (45-117) D 05/31/17 17:10 Total Protein 7.2 g/dl (6.4-8.2) D 05/31/17 17:10 Albumin 4.1 g/dl (3.4-5.0) D 05/31/17 17:10 CARDIAC ENZYMES Creatine Kinase 281 IU/L (26-192) H 05/31/17 17:10 Troponin I < 0.02 ng/ml (0.00-0.05) 05/31/17 17:10 Current Medications Generic Name Dose Route Start Last Admin Trade Name Freq PRN Reason Stop Dose Admin Acetaminophen 650 mg 06/01/17 09:32 Tylenol - PO Q4H PRN FEVER OR PAIN Enoxaparin Sodium 30 mg 06/01/17 09:32 Lovenox - SQ Q12H [facility] Fentanyl 50 mcg 06/01/17 09:17 Sublimaze Injection - IVPUSH [id number] PRN PAIN Hydromorphone HCl 0 mg 06/01/17 10:15 Dilaudid [employer] - BAR ATTENDANT 06/08/17 10:13 BAR ATTENDANT [facility] Protocol Lactated Ringer's 1,000 mls @ 75 mls/hr 06/01/17 09:30 Lactated Ringers Solution IV ASDIR [facility] Sodium Chloride 1,000 mls @ 75 mls/hr 06/01/17 09:32 Normal Saline - IV ASDIR [facility] Vancomycin HCl 1,000 mg/ 250 mls @ 250 mls/hr 06/01/17 19:00 Dextrose IVPB BID [facility] Protocol Midazolam HCl 2 mg 06/01/17 09:18 Versed - IVPUSH 06/01/17 09:19 ONCE ONE Morphine Sulfate 2 mg 06/01/17 09:32 Morphine Sulfate IVPUSH Q4H PRN PAIN Ondansetron HCl 4 mg 06/01/17 09:17 Zofran Injection IVPUSH Q6H PRN NAUSEA AND/OR VOMITING Pantoprazole Sodium 40 mg 06/01/17 10:00 Protonix - PO 06/01/17 20:31 DAILY [facility] Vancomycin HCl 1,000 mg 06/01/17 09:32 Vancomycin (Pre-Docked) IVPB 06/01/17 09:33 ONCE ONE Protocol Home Medications Medication Instructions Recorded FENTANYL 75mcg PATCH [DURAGESIC 75 mcg TD Q72H 01/24/13 75mcg PATCH -] Gabapentin 800 mg PO TID 12/03/14 Carisoprodol [Soma] 0 mg PO DAILY 12/17/16 Oxycodone HCl [Roxicodone -] 0 mg PO PRN 05/31/17 PE: per resident's note. ASSESSMENT AND PLAN: Patient is a 61 year old female with PMHx of panic attacks, chronic back pain, presented because of Fall and was found to have a tibial fracture with a possible seizure disorder. #Right Tibial Open Fracture, on board on pain meds. -Continue with Vanc/Zosyn in view of compound fracture -Limb elevation, Frequent pulse checks, Morphine PRN for pain -NPO for now, IV fluids NS@75 cc/ hour # Insomnia: melatonin to continue #Chronic back pain on Pain meds continue #PPX :SCDs, heparin -Protonix 40mg Daily
[2017-06-01 10:41] LABS: BASO % 1.2 % (0-2.0); EOS % 0.4 % (0-4.5); MCH 31.1 pg (25.7-33.7); MCHC 32.7 g/dl (32.0-36.0); MEAN CELL VOLUME 95.3 fl (80-96); MEAN PLT VOLUME 9.1 fl (7.5-11.1); NEUT % 83.5 % (42.8-82.8); PLATELET COUNT 254 K/MM3 (134-434); RDW 13.8 % (11.6-15.6); WHITE BLOOD COUNT 8.7 K/mm3 (4.0-10.0)
[2017-06-01 10:54] LABS: INR 1.09 (0.82-1.09); PROTHROMBIN TIME (PATIENT) 12.3 SEC (9.98-11.88)
[2017-06-01 11:13] LABS: ANION GAP 5 (8-16); CALCIUM 7.5 mg/dL (8.5-10.1); CO2 25 mmol/L (21-32); CREATININE 0.7 mg/dL (0.55-1.02); GLUCOSE,RANDOM 102 mg/dL (74-106); MAGNESIUM 1.6 mg/dL (1.8-2.4); SGOT/AST 14 U/L (15-37); TOT PROT 5.7 g/dl (6.4-8.2)
[2017-06-01 11:16] LABS: ALK PHOS 70 U/L (45-117); BILIRUBIN,TOTAL 0.4 mg/dL (0.2-1.0); PHOSPHOROUS 2.4 mg/dL (2.5-4.9); SGPT/ALT 9 U/L (12-78)
[2017-06-01 11:36] LABS: THYROID STIMULATING HORMONE 0.59 uIU/ml (0.358-3.74)
--- NOTE | 2017-06-01 11:40 | PN ---
Progress Note (short form) - Note Progress Note: ID Consult dictated S/P DEBRIDEMENT , EXTERNAL FIXATION OPEN FRACTURE R TIBIA LOW GRADE FEVER/ LEUKOCYTOSIS ANTIBIOTIC PROPHYLAXIS POST-TRAUMATIC OSTEOMYELITIS WITH CEFAZOLIN
--- NOTE | 2017-06-01 11:46 | OP ---
DATE OF OPERATION: 06/01/2017 PREOPERATIVE DIAGNOSIS: Right grade 2 open tibia fracture. POSTOPERATIVE DIAGNOSIS: Right grade 2 open tibia fracture. PROCEDURE: Right leg irrigation and debridement, external fixation. SURGEON: Jethro Zuñiga MD [employer] TEACHER: RONY Perez whose skillful assistance was necessary for the safe and timely performance of this procedure. The patient was able to provide limb positioning, retraction as well as assist in the insertion of orthopaedic fixation hardware. ANESTHESIA: General. POSTOPERATIVE CONDITION: Stable. COMPLICATIONS: None. BLOOD LOSS: 20 mL. External fixator is a [place] Christa 3 system with calcaneal transfixion 10 and 2 tibial 5-mm Schanz screws. INDICATIONS: This is a woman who has suffered tibia fracture and fibular fracture on Thursday after fall. She reports the fall was secondary to tremor, which she believes was secondary to a seizure. She did not want to come to the hospital and was finally convinced to do so by a friend 2 days later. She was found to have open fracture at this time. Given the fracture had been open for days, decision was made not to treat the primary external fixation given that the wound was likely colonized to some degree. Rather, the choice was made to perform a staged procedure performing external fixation at first to stabilize the fracture along with irrigation and debridement followed by delayed either repeat washout or definitive fixation as appropriate based on her clinical condition. I addressed all of the patient's questions. We did review the option of initial internal fixation with high risk for infection. The patient voiced understanding and elected to proceed. We did discuss surgical risks in detail prior to her consenting including bleeding, infection, neurovascular injury, need for further surgery (in this case planned further surgery), postoperative pain and stiffness, nonunion, malunion, hardware failure or cutout. We discussed medical risks such as heart attack, stroke, DVT, PE, and . We discussed osteomyelitis and the possibility that this would be an incurable disease for her. The patient, again, voiced understanding and elected to proceed surgically. DESCRIPTION OF PROCEDURE: The patient was brought to the operating room where general anesthesia was administered. The right lower extremity was then prepped and draped in the usual sterile fashion. She had already been on antibiotics, and these were continued during the procedure. The time-out procedure was performed. Attention was initially turned toward the wound area. The wound was extended both proximally and distally. The wound was located anteromedially in the distal 1/ 3 of the tibia. The wound was now debrided at first using sharp dissection about the edges and then using a combination of rongeur, curette to remove any nonviable tissue. The tibia was sitting subcutaneously in this region. The wound was now copiously pulse lavaged with 9 L of saline. Breaks were taken during the pulse lavage to re-examine the wound and debride any nonviable tissue that was further uncovered. Attention was now turned towards putting on the external fixator. Initially, attention was turned to the calcaneus. The foot was positioned into a lateral position on the table aided by the instability of the fracture site. Under fluoroscopic guidance, the center of the calcaneal tuberosity was identified. Incision was made in the skin over this. This was then carried with blunt dissection down to the calcaneus. A transfixion pin was then drilled across then placement was confirmed fluoroscopically. Incision was then made on the other side, and the pin was advanced through. Attention was then turned to the proximal tibia. Just distal to the tubercle, 2 holes were marked out. Incision was then made through skin into subcutaneous tissue. Again, blunt spreading was used to expose the anteromedial tibial crest. Both Schanz screws were then inserted, and their depth was confirmed fluoroscopically. The external fixator was normal assembled. The limb was reduced. The external fixator was then used to lock in the reduction. Final post reduction radiographs demonstrated only mild displacement of the fracture at this point and good linear alignment. The open wound at this point was approximated using vertical mattress 2-0 Prolene sutures. That wound was then dressed with an incisional vacuum dressing. The pin sites were approximated where necessary using 3-0 nylon. Xeroform and sterile dressings were placed about these. The patient was then wrapped in a compressive dressing. She was extubated and transferred to the recovery room in stable condition. Matilde [id number] MTDD
[2017-06-01] MEDS ORDERED: CEFAZOLIN 2 GM/D5W 2 GM/50 ML ML IVPB SCH ×2 (12:00)
[2017-06-01] MEDS ORDERED: VANCOMYCIN 1,000 MG in DEXTROSE 5%-WATER - 250 ML IVPB ONE (12:15)
--- NOTE | 2017-06-01 15:00 | EKG ---
Test Reason : Blood Pressure : / mmHG Vent. Rate : 102 BPM Atrial Rate : 102 BPM P-R Int : 094 ms QRS Dur : 082 ms QT Int : 336 ms P-R-T Axes : 066 073 068 degrees QTc Int : 437 ms SINUS TACHYCARDIA WITH SHORT ID OTHERWISE NORMAL ECG WHEN COMPARED WITH ECG OF 19-OCT-2016 16:26, NO SIGNIFICANT CHANGE WAS FOUND Confirmed by RADHA MISTRY MD ([id number]) on 06/01/2017 3:00:06 PM Referred By: Confirmed By:RADHA MISTRY MD
[2017-06-01] MEDS: ENOXAPARIN NA (PORCINE) 30 MG/0.3 ML DISP.SYRIN SQ SCH ×2 (15:37→21:45)
--- NOTE | 2017-06-01 16:54 | CONS ---
DATE OF CONSULTATION: HISTORY: The patient is a 61-year-old female who was evaluated for open fracture of the right tibia. The patient was at home when she had an apparent seizure. She sustained trauma to her right lower extremity. She was taken to the emergency room where she was found to have an open fracture of the right tibia. The patient was also noted to have a low-grade fever and leukocytosis. She was taken to the operating room this morning where debridement was performed, and external fixator was applied. She is presently postoperative. She has no complaints of pain at the present time. She denies any recent febrile illness. She reports being, otherwise, healthy. No prior history of seizures. She has no history of serious soft tissue infection requiring hospitalization or history of MRSA. PAST MEDICAL HISTORY: Positive for chronic low back pain and panic attacks. ALLERGIES: No known allergies. MEDICATIONS: Fentanyl, oxycodone, gabapentin, Soma. SOCIAL HISTORY: Positive for tobacco use. She denies history of alcohol use or illicit drug use. She denies any risk factors for HIV. She is a . LABORATORY DATA: White count on admission 12.9, presently 8.7, hematocrit 35, platelet count 254, BUN 17, creatinine 0.9. PHYSICAL EXAMINATION: General: She is awake and alert. She is in no acute distress. Vital Signs: Temperature 98.4, T-max 99.9, blood pressure 159/126, pulse 82 and regular, respirations 18 per minute. HEENT: Sclerae anicteric. Heart: Sounds S1, S2. Lungs: Clear. Abdomen: Soft and nontender. Extremities: Right lower extremity: There is a postoperative dressing in place with an external fixation device present. The dressing is not removed. IMPRESSION: 1. Status post debridement and external fixation of open fracture, right tibia. 2. Low-grade fever and leukocytosis. PLAN: Antibiotic prophylaxis for posttraumatic osteomyelitis with cefazolin 2 g IV piggyback every 8 hours. We will obtain blood cultures, nares screen for MRSA. Risks for posttraumatic osteomyelitis approximately 25% in this patient with an open fracture. We will follow. Thank you for the kind referral. GABY TELLEZ M.D. [id number]
[2017-06-01] MEDS: CEFAZOLIN 2 GM/D5W 2 GM/50 ML ML IVPB SCH (17:13)
[2017-06-01] MEDS ORDERED: MAGNESIUM OXIDE 400 MG TABLET (FP) PO ONE (18:00)
[2017-06-01] MEDS ORDERED: CEFAZOLIN 2 GM in DEXTROSE 5%-WATER - 50 ML IVPB SCH (18:00)
--- NOTE | 2017-06-01 18:05 | PN ---
Physical Exam: SUBJECTIVE: Patient seen and examined. Pt denies chest pain, abdominal pain, sob, fever, chills. Pt s/p external fixation of tib-fib fx. No events overnight. OBJECTIVE: Vital Signs Period Temp Pulse Resp BP Sys/Gruber Pulse Ox Last 24 Hr 97.7 F-99.1 F 67-102 14-20 116-161/63-126 95-100 GENERAL: The patient is awake, alert, and fully oriented, in no acute distress. HEAD: Normal with no signs of trauma. LUNGS: Breath sounds equal, clear to auscultation bilaterally, no wheezes, no crackles, no accessory muscle use. HEART: Regular rate and rhythm, S1, S2 without murmur, rub or gallop. ABDOMEN: Soft, nontender, nondistended. EXTREMITIES: 2+ pulse on Left LE, capillary refill appreciated on Right LE, warm , well-perfused, no edema. Right LE with external fixation apparatus and wrapped post-op. NEUROLOGICAL: Able to move toes to pamela LE. SKIN: Warm, dry, normal turgor, no rashes or lesions noted Laboratory Results - last 24 hr 05/31/17 05/31/17 05/31/17 17:10 17:10 17:10 WBC RBC Hgb Hct MCV MCH MCHC RDW Plt Count MPV Neutrophils % Lymphocytes % Monocytes % Eosinophils % Basophils % Manual Slide Review Platelet Comment PT with INR 11.80 INR 1.04 Sodium 139 Potassium 4.6 Chloride 104 Carbon Dioxide 26 Anion Gap 9 BUN 17 D Creatinine 0.9 Creat Clearance w eGFR > 60 Random Glucose 106 D Calcium 9.4 Phosphorus Magnesium Total Bilirubin 0.3 D AST 22 D ALT 16 D Alkaline Phosphatase 92 D Creatine Kinase Creatine Kinase Index CK-MB (CK-2) Troponin I Total Protein 7.2 D Albumin 4.1 D Vitamin B12 Serum Folate TSH Blood Type Antibody Screen 05/31/17 05/31/17 06/01/17 17:10 17:10 10:34 WBC 8.7 D RBC 3.67 Hgb 11.4 D Hct 35.0 D MCV 95.3 MCH 31.1 MCHC 32.7 RDW 13.8 Plt Count 254 MPV 9.1 Neutrophils % 83.5 H D Lymphocytes % 11.8 D Monocytes % 3.1 L Eosinophils % 0.4 Basophils % 1.2 Manual Slide Review Platelet Comment PT with INR INR Sodium Potassium Chloride Carbon Dioxide Anion Gap BUN Creatinine Creat Clearance w eGFR Random Glucose Calcium Phosphorus Magnesium Total Bilirubin AST ALT Alkaline Phosphatase Creatine Kinase 281 H Creatine Kinase Index 0.4 CK-MB (CK-2) 1.316 Troponin I < 0.02 Total Protein Albumin Vitamin B12 Serum Folate TSH Blood Type O NEGATIVE Antibody Screen Negative 06/01/17 06/01/17 06/01/17 10:34 10:34 10:34 WBC RBC Hgb Hct MCV MCH MCHC RDW Plt Count MPV Neutrophils % Lymphocytes % Monocytes % Eosinophils % Basophils % Manual Slide Review Platelet Comment PT with INR 12.30 H INR 1.09 Sodium 142 Potassium 4.3 Chloride 112 H Carbon Dioxide 25 Anion Gap 5 L BUN 9 D Creatinine 0.7 D Creat Clearance w eGFR > 60 Random Glucose 102 Calcium 7.5 L D Phosphorus 2.4 L Magnesium 1.6 L D Total Bilirubin 0.4 D AST 14 L D ALT 9 L D Alkaline Phosphatase 70 D Creatine Kinase Creatine Kinase Index CK-MB (CK-2) Troponin I Total Protein 5.7 L D Albumin 3.0 L D Vitamin B12 668 Serum Folate 15 TSH 0.59 Blood Type Antibody Screen Active Medications Generic Name Dose Route Start Last Admin Trade Name Freq PRN Reason Stop Dose Admin Acetaminophen 650 mg 06/01/17 09:32 Tylenol - PO Q4H PRN FEVER OR PAIN Enoxaparin Sodium 30 mg 06/01/17 12:00 06/01/17 15:37 Lovenox - SQ Not Given BID [facility] Fentanyl 50 mcg 06/01/17 09:17 Sublimaze Injection - IVPUSH [id number] PRN PAIN Hydromorphone HCl 10 mg 06/01/17 12:04 Dilaudid Ice Cream Mixer - PHOTOCOMPOSITION KEYBOARD OPERATOR 06/08/17 10:13 PHOTOCOMPOSITION KEYBOARD OPERATOR [facility] Protocol Lactated Ringer's 1,000 mls @ 75 mls/hr 06/01/17 09:30 Lactated Ringers Solution IV ASDIR [facility] Sodium Chloride 1,000 mls @ 75 mls/hr 06/01/17 09:32 06/01/17 13:31 Normal Saline - IV Not Given ASDIR [facility] Cefazolin Sodium/Dextrose 2 gm in 50 mls @ 100 mls/hr 06/01/17 18:00 17:13 Ancef 2 Gm Premixed Ivpb - IVPB 100 mls/hr Q8H-IV [facility] Administration Morphine Sulfate 2 mg 06/01/17 09:32 Morphine Sulfate IVPUSH Q4H PRN PAIN Ondansetron HCl 4 mg 06/01/17 09:17 Zofran Injection IVPUSH Q6H PRN NAUSEA AND/OR VOMITING Pantoprazole Sodium 40 mg 06/01/17 10:00 06/01/17 13:31 Protonix - PO 06/01/17 20:31 40 mg DAILY [facility] Administration ASSESSMENT/PLAN: 61yo F with PMH of panic attacks, chronic back pain, presented s/p fall 2/2 shaking episode, admitted for tib-fib fx and possible seizure disorder. # possible seizure disorder - Neuro (Dr. Martines) recs appreciated: Unusual for pt to remain conscious while having a seizure; event could have been convulsive syncope vs pseudoseizure. - Fall precautions - f/u Head CT # Right Tib/Fib Fx - s/p debridement and external fixation - continue IV Ancef (Day 1) - pain management with Dilaudid PHOTOCOMPOSITION KEYBOARD OPERATOR, Morphine and Fentanyl prn # electrolyte abnormalities - hypophosphatemia repleted with K-Phos 15mm IVPB - hypomagnesemia repleted with Mg Oxide 800mg # FEN - Fluids: LR @ 75 ml/hr - Electrolytes: continue to monitor # Prophylaxis - DVT ppx with Lovenox BID - GI ppx with Protonix Visit type - Emergency Visit Emergency Visit: Yes ED Registration Date: 05/31/17 Care time: The patient presented to the Emergency Department on the above date and was hospitalized for further evaluation of their emergent condition. - New Patient This patient is new to me today: Yes Date on this admission: 06/01/17 - Critical Care Critical Care patient: No
[2017-06-01] MEDS ORDERED: POTASSIUM PHOSPHATE 15 MM in DEXTROSE 5%-WATER - 250 ML IVPB ONE (18:30)
[2017-06-01] MEDS ORDERED: VANCOMYCIN 1,000 MG in DEXTROSE 5%-WATER - 250 ML IVPB SCH (19:00)
[2017-06-01] MEDS: MELATONIN 1 MG TABLET PO SCH (21:45)
[2017-06-01] MEDS: HYDROmorphone *PCA* 10MG/50ML DISP.SYRIN PCA SCH (23:31)
[2017-06-02] MEDS: CEFAZOLIN 2 GM/D5W 2 GM/50 ML ML IVPB SCH ×3 (02:40→17:42)
[2017-06-02 09:12] LABS: MCH 30.6 pg (25.7-33.7); MCHC 32.4 g/dl (32.0-36.0); MEAN CELL VOLUME 94.5 fl (80-96); MEAN PLT VOLUME 9.6 fl (7.5-11.1); PLATELET COUNT 261 K/MM3 (134-434); RDW 13.7 % (11.6-15.6); WHITE BLOOD COUNT 12.2 K/mm3 (4.0-10.0)
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
[2017-06-02 10:01] LABS: ANION GAP 8 (8-16); CALCIUM 8.3 mg/dL (8.5-10.1); CO2 23 mmol/L (21-32); CREATININE 0.7 mg/dL (0.55-1.02); GLUCOSE,RANDOM 99 mg/dL (74-106); MAGNESIUM 1.7 mg/dL (1.8-2.4); PHOSPHOROUS 3.5 mg/dL (2.5-4.9)
[2017-06-02] MEDS ORDERED: ALPRAZolam 0.25 MG TABLET PO ONE (10:23)
[2017-06-02] MEDS: ENOXAPARIN NA (PORCINE) 30 MG/0.3 ML DISP.SYRIN SQ SCH ×2 (11:08→21:33)
[2017-06-02] MEDS: SODIUM CHLORIDE 1,000 ML IV SCH (11:09)
--- NOTE | 2017-06-02 12:21 | PN ---
Progress Note (short form) - Note Progress Note: Patient seen lying comfortably in bed. Her pain is well controlled. AF VSS RLE dressings CDI / vac in place calves soft NT Sens int to lt EHL FHL intact 2+ dp pulse a/p: POD 1 R tibia I+D -continue abx -ID consult appreciated -continue VAC -will plan for wound inspection Thurs consider IM nail if wound appears copasetic -continue DVT proph
[2017-06-02] MEDS: DOCUSATE SODIUM 100 MG CAPSULE (FP) PO SCH ×2 (13:56→21:29)
--- NOTE | 2017-06-02 15:10 | PN ---
Progress Note (short form) - Note Progress Note: Anesthesia POD#1 S/P Open fracture Right Lower Extremity under GA and Dilaudid RESOURCE ENGINEER VSS,no N/V,using Dilauadid RESOURCE ENGINEER. More worried about panic attack. Needs xanax. A/P continue RESOURCE ENGINEER for today. Ynes Apple MD.
[2017-06-02] MEDS: HYDROmorphone *PCA* 10MG/50ML DISP.SYRIN PCA SCH (16:49)
--- NOTE | 2017-06-02 17:03 | PN ---
Progress Note, Physician History of Present Illness: No c/o leg pain at present Afebrile BC no growth Nares MRSA screen negative - Current Medication List Current Medications: Active Medications Acetaminophen (Tylenol -) 650 mg PO Q4H PRN PRN Reason: FEVER OR PAIN Calcium Carbonate/Cholecalciferol (Os-Romel 500+D -) 1 tab PO BID [facility] Docusate Sodium (Colace -) 100 mg PO TID [facility] Last Admin: 06/02/17 13:56 Dose: 100 mg Enoxaparin Sodium (Lovenox -) 30 mg SQ BID [facility] Last Admin: 06/02/17 11:08 Dose: Not Given Fentanyl (Sublimaze Injection -) 50 mcg IVPUSH [id number] PRN PRN Reason: PAIN Ferrous Sulfate (Feosol -) 325 mg PO BIDWM [facility] Hydromorphone HCl (Dilaudid Client Support Representative -) 10 mg OPTOMETRIST OPTOMETRIST [facility] PRN Reason: Protocol Stop: 06/08/17 10:13 Last Admin: 06/02/17 16:49 Dose: 10 mg Lactated Ringer's (Lactated Ringers Solution) 1,000 mls @ 75 mls/hr IV ASDIR [facility] Sodium Chloride (Normal Saline -) 1,000 mls @ 75 mls/hr IV ASDIR [facility] Last Admin: 06/02/17 11:09 Dose: 75 mls/hr Cefazolin Sodium/Dextrose (Ancef 2 Gm Premixed Ivpb -) 2 gm in 50 mls @ 100 mls /hr IVPB Q8H-IV [facility] Last Admin: 06/02/17 11:08 Dose: 100 mls/hr Melatonin (Melatonin) 3 mg PO HS [facility] Last Admin: 06/01/17 21:45 Dose: 3 mg Morphine Sulfate (Morphine Sulfate) 2 mg IVPUSH Q4H PRN PRN Reason: PAIN Multivitamins/Minerals/Vitamin C (Tab-A-Vit -) 1 tab PO DAILY [facility] Ondansetron HCl (Zofran Injection) 4 mg IVPUSH Q6H PRN PRN Reason: NAUSEA AND/OR VOMITING - Objective Vital Signs: Vital Signs Temperature 98.1 F 06/02/17 14:49 Pulse Rate 72 06/02/17 16:49 Respiratory Rate 18 06/02/17 16:49 Blood Pressure 126/74 06/02/17 16:49 O2 Sat by Pulse Oximetry (%) 96 06/01/17 21:00 Constitutional: Yes: No Distress Eyes: Yes: Conjunctiva Clear Cardiovascular: Yes: Regular Rate and Rhythm, S1, S2 Respiratory: Yes: CTA Bilaterally Gastrointestinal: Yes: Normal Bowel Sounds, Soft. No: Tenderness Extremities: Yes: Other (external fixation device in place) Labs: CBC, BMP 06/02/17 07:45 06/02/17 07:45 INR, PTT INR 1.09 (0.82-1.09) 06/01/17 10:34 Assessment/Plan S/P open fracture R tibia Low grade fever/ leukocytosis- improved Continue cefazolin
[2017-06-02] MEDS: FERROUS SO4 325 MG TABLET (FP) PO SCH (17:42)
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
[2017-06-02] MEDS ORDERED: MAGNESIUM OXIDE 400 MG TABLET (FP) PO ONE ×3 (19:00→21:30)
--- NOTE | 2017-06-02 19:03 | PN ---
Physical Exam: SUBJECTIVE: Patient seen and examined. Pt denies chest pain, abdominal pain, sob, fever, chills. Pt s/p external fixation of tib-fib fx. No events overnight. OBJECTIVE: Vital Signs Period Temp Pulse Resp BP Sys/Gruber Pulse Ox Last 24 Hr 98.1 F-98.4 F 60-84 18-20 112-154/53-82 96 GENERAL: The patient is awake, alert, and fully oriented, in no acute distress. HEAD: Normal with no signs of trauma. LUNGS: Breath sounds equal, clear to auscultation bilaterally, no wheezes, no crackles, no accessory muscle use. HEART: Regular rate and rhythm, S1, S2 without murmur, rub or gallop. ABDOMEN: Soft, nontender, nondistended. EXTREMITIES: Warm, well-perfused, no edema. Right LE with external fixation apparatus and wrapped post-op. NEUROLOGICAL: Able to move toes to pamela LE. SKIN: Warm, dry, normal turgor, no rashes or lesions noted Laboratory Results - last 24 hr 06/02/17 06/02/17 07:45 07:45 WBC 12.2 H D RBC 3.46 L Hgb 10.6 L Hct 32.7 MCV 94.5 MCH 30.6 MCHC 32.4 RDW 13.7 Plt Count 261 MPV 9.6 Sodium 142 Potassium 4.0 Chloride 111 H Carbon Dioxide 23 Anion Gap 8 BUN 8 Creatinine 0.7 Random Glucose 99 Calcium 8.3 L Phosphorus 3.5 D Magnesium 1.7 L Active Medications Generic Name Dose Route Start Last Admin Trade Name Freq PRN Reason Stop Dose Admin Acetaminophen 650 mg 06/01/17 09:32 Tylenol - PO Q4H PRN FEVER OR PAIN Alprazolam 0.5 mg 06/02/17 18:34 Xanax - PO BID PRN ANXIETY Calcium Carbonate/Cholecalciferol 1 tab 06/02/17 22:00 Os-Romel 500+D - PO BID [facility] Docusate Sodium 100 mg 06/02/17 14:00 06/02/17 13:56 Colace - PO 100 mg TID [facility] Administration Enoxaparin Sodium 30 mg 06/01/17 12:00 06/02/17 11:08 Lovenox - SQ Not Given BID [facility] Fentanyl 50 mcg 06/01/17 09:17 Sublimaze Injection - IVPUSH [id number] PRN PAIN Ferrous Sulfate 325 mg 06/02/17 17:30 06/02/17 17:42 Feosol - PO 325 mg BIDWM [facility] Administration Hydromorphone HCl 10 mg 06/01/17 12:04 06/02/17 16:49 Dilaudid Inventory Management Specialist - PRECISION MARKET INSIGHTS 06/08/17 10:13 10 mg PRECISION MARKET INSIGHTS [facility] Administration Protocol Lactated Ringer's 1,000 mls @ 75 mls/hr 06/01/17 09:30 Lactated Ringers Solution IV ASDIR [facility] Sodium Chloride 1,000 mls @ 75 mls/hr 06/01/17 09:32 06/02/17 11:09 Normal Saline - IV 75 mls/hr ASDIR [facility] Administration Cefazolin Sodium/Dextrose 2 gm in 50 mls @ 100 mls/hr 06/01/17 18:00 17:42 Ancef 2 Gm Premixed Ivpb - IVPB 100 mls/hr Q8H-IV [facility] Administration Magnesium Oxide 800 mg 06/02/17 18:46 Mag-Ox - PO 06/02/17 18:47 ONCE ONE Melatonin 3 mg 06/01/17 22:00 06/01/17 21:45 Melatonin PO 3 mg HS [facility] Administration Morphine Sulfate 2 mg 06/01/17 09:32 Morphine Sulfate IVPUSH Q4H PRN PAIN Multivitamins/Minerals/Vitamin C 1 tab 06/03/17 10:00 Tab-A-Vit - PO DAILY [facility] Ondansetron HCl 4 mg 06/01/17 09:17 Zofran Injection IVPUSH Q6H PRN NAUSEA AND/OR VOMITING IMAGIN06/01/[address] -> no evidence of acute intracranial pathology. ASSESSMENT/PLAN: 61yo F with PMH of panic attacks, chronic back pain, presented s/p fall 2/2 shaking episode, admitted for tib-fib fx and possible seizure disorder. # possible seizure disorder - Neuro (Dr. Martines) recs appreciated: Unusual for pt to remain conscious while having a seizure; event could have been convulsive syncope vs pseudoseizure. Consider PT/rehab for gait and ambulation. - Fall precautions - Psych (Juan Stauffer) recs appreciated: continue low dose Xanax prn, and encourage pt to f/u with psych as outpt. # Right Tib/Fib Fx - POD #1 - Day 2 of IV Ancef - wound care per surgery - continue VAC - pain management with Dilaudid PRECISION MARKET INSIGHTS, Morphine and Fentanyl prn # hypomagnesemia - repleted with Mg Oxide 800mg # FEN - Fluids: LR @ 75 ml/hr - Electrolytes: continue to monitor - Nutrition: regular diet # Prophylaxis - DVT ppx with Lovenox BID - deconditioning ppx with PT Visit type - Emergency Visit Emergency Visit: Yes ED Registration Date: 05/31/17 Care time: The patient presented to the Emergency Department on the above date and was hospitalized for further evaluation of their emergent condition. - New Patient This patient is new to me today: No - Critical Care Critical Care patient: No
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
[2017-06-02] MEDS: ALPRAZolam 0.25 MG TABLET PO PRN (21:29)
[2017-06-02] MEDS: CALCIUM 500MG/VIT-D 200 UNITS COMBO TABLET (FP) PO SCH (21:29)
[2017-06-02] MEDS: MELATONIN 1 MG TABLET PO SCH (21:31)
[2017-06-03] MEDS: CEFAZOLIN 2 GM/D5W 2 GM/50 ML ML IVPB SCH ×3 (01:32→18:10)
[2017-06-03] MEDS: HYDROmorphone *PCA* 10MG/50ML DISP.SYRIN PCA SCH (05:29)
[2017-06-03] MEDS: DOCUSATE SODIUM 100 MG CAPSULE (FP) PO SCH ×3 (06:08→21:27)
[2017-06-03 08:01] LABS: MCH 31.2 pg (25.7-33.7); MCHC 33.1 g/dl (32.0-36.0); MEAN CELL VOLUME 94.2 fl (80-96); MEAN PLT VOLUME 9.5 fl (7.5-11.1); PLATELET COUNT 273 K/MM3 (134-434); RDW 13.4 % (11.6-15.6); WHITE BLOOD COUNT 7.8 K/mm3 (4.0-10.0)
[2017-06-03 08:46] LABS: ANION GAP 9 (8-16); CALCIUM 8.3 mg/dL (8.5-10.1); CO2 24 mmol/L (21-32); GLUCOSE,RANDOM 83 mg/dL (74-106); MAGNESIUM 1.7 mg/dL (1.8-2.4)
[2017-06-03 08:47] LABS: CREATININE 0.7 mg/dL (0.55-1.02); PHOSPHOROUS 3.6 mg/dL (2.5-4.9)
[2017-06-03] MEDS: CALCIUM 500MG/VIT-D 200 UNITS COMBO TABLET (FP) PO SCH ×2 (09:23→21:26)
[2017-06-03] MEDS: ALPRAZolam 0.25 MG TABLET PO PRN ×2 (09:23→21:30)
[2017-06-03] MEDS: FERROUS SO4 325 MG TABLET (FP) PO SCH ×2 (09:23→18:10)
[2017-06-03] MEDS: MULTIVITAMINS (DAILY MVI) TABLET (FP) PO SCH (09:23)
--- NOTE | 2017-06-03 10:19 | PN ---
Progress Note (short form) - Note Progress Note: Patient seen lying comfortably in bed. Her pain is well controlled. She is moving around better. AF VSS RLE dressings CDI / vac in place calves soft NT Sens int to lt EHL FHL intact 2+ dp pulse a/p: POD 2 R tibia I+D -continue abx -continue VAC -plan to inspect wound tomorrow, will proceed with nail vs plate if wound ok, will obtain CT to evaluate distal extent of fracture -NPO past midnight -hold lovenox after midnight -ok to be oob to chair -bedside commode
[2017-06-03] MEDS: ENOXAPARIN NA (PORCINE) 30 MG/0.3 ML DISP.SYRIN SQ SCH (10:51)
[2017-06-03] MEDS: MAGNESIUM OXIDE 400 MG TABLET (FP) PO SCH ×2 (13:01→21:26)
[2017-06-03] MEDS: SODIUM CHLORIDE 1,000 ML IV SCH (14:20)
[2017-06-03] MEDS ORDERED: ALPRAZolam 0.25 MG TABLET PO ONE (16:26)
--- NOTE | 2017-06-03 18:26 | PN ---
Teaching Attending Note Name of Resident: Tiki Nguyen ATTENDING PHYSICIAN STATEMENT I saw and evaluated the patient. I reviewed the resident's note and discussed the case with the resident. I agree with the resident's findings and plan as documented. SUBJECTIVE: has pain in R leg and does not feel comfortable. has anxiety about the whole situation . insomnia x 2 days OBJECTIVE: NAD ,AAOx3 . CV: RRR, no MRG Lungs : decreased breath sounds at bases , no crackles or wheezes Abd: soft, NT< ND , NL BS Ext: R leg wrapped with gauze and has an external fixator. can't evaluate pulse on that side thigs with no edema or erythema ASSESSMENT AND PLAN: 61 y/o lady with h/o Anxiety , depression , panic attacks , and other medical problems who presented with a fall resulting in R tibial Fx 1- R tibial Fx: POD 2 s/p external Fixation and I+D - cont pain management - cont IVF - DVT Px wo be helad after evening dose - for OR tomorrow for exploration and possible IM nailing - Cont Abx . Appreciate ID input - cont wound vac 2- severe anxity disorder: - cont xanax PRN - add celexa . 3- episode of shaking at home : per neuro eval, no evidence of seizureespecially the shaking was generalized but she remained awake - monitor Dipo : HLOC.
[2017-06-03] MEDS ORDERED: traZODone HCL 50 MG TABLET (FP) PO ONE (21:00)
--- NOTE | 2017-06-03 21:00 | PN ---
Physical Exam: SUBJECTIVE: Patient seen and examined. Pt c/o anxiety, relieved with Xanax. No events overnight. OBJECTIVE: Vital Signs Period Temp Pulse Resp BP Sys/Gruber Pulse Ox Last 24 Hr 97.9 F-98.6 F 57-75 18-20 122-162/68-85 95-96 GENERAL: The patient is awake, alert, and fully oriented, in no acute distress. LUNGS: Breath sounds equal, clear to auscultation bilaterally, no wheezes, no crackles, no accessory muscle use. HEART: Regular rate and rhythm, S1, S2 without murmur, rub or gallop. ABDOMEN: Soft, nontender, nondistended. EXTREMITIES: Warm, well-perfused, no edema. Right LE with external fixation apparatus and wrapped post-op. Able to move toes to pamela LE. SKIN: Warm, dry, normal turgor, no rashes or lesions noted Laboratory Results - last 24 hr 06/03/17 06/03/17 06:30 06:30 WBC 7.8 D RBC 3.47 L Hgb 10.8 Hct 32.6 MCV 94.2 MCH 31.2 MCHC 33.1 RDW 13.4 Plt Count 273 MPV 9.5 Sodium 144 Potassium 3.8 Chloride 111 H Carbon Dioxide 24 Anion Gap 9 BUN 8 Creatinine 0.7 Random Glucose 83 Calcium 8.3 L Phosphorus 3.6 Magnesium 1.7 L Active Medications Generic Name Dose Route Start Last Admin Trade Name Freq PRN Reason Stop Dose Admin Acetaminophen 650 mg 06/01/17 09:32 Tylenol - PO Q4H PRN FEVER OR PAIN Alprazolam 0.5 mg 06/02/17 18:34 06/03/17 09:23 Xanax - PO 0.5 mg BID PRN Administration ANXIETY Calcium Carbonate/Cholecalciferol 1 tab 06/02/17 22:00 06/03/17 09:23 Os-Romel 500+D - PO 1 tab BID [facility] Administration Citalopram Hydrobromide 10 mg 06/04/17 10:00 Celexa - PO DAILY [facility] Docusate Sodium 100 mg 06/02/17 14:00 06/03/17 13:02 Colace - PO 100 mg TID [facility] Administration Enoxaparin Sodium 30 mg 06/03/17 22:00 Lovenox - SQ 06/03/17 22:01 ONCE ONE Fentanyl 50 mcg 12/11/17 09:17 Sublimaze Injection - IVPUSH [id number] PRN PAIN Ferrous Sulfate 325 mg 06/02/17 17:30 06/03/17 18:10 Feosol - PO 325 mg BIDWM [facility] Administration Hydromorphone HCl 10 mg 06/01/17 12:04 06/03/17 05:29 Dilaudid Keyboard Action Assembler - HIRED HELP 06/08/17 10:13 10 mg HIRED HELP [facility] Administration Protocol Cefazolin Sodium/Dextrose 2 gm in 50 mls @ 100 mls/hr 06/01/17 18:00 18:10 Ancef 2 Gm Premixed Ivpb - IVPB 100 mls/hr Q8H-IV [facility] Administration Magnesium Oxide 400 mg 06/03/17 11:00 06/03/17 13:01 Mag-Ox - PO 06/04/17 10:59 400 mg BID [facility] Administration Melatonin 3 mg 06/01/17 22:00 06/02/17 21:31 Melatonin PO 3 mg HS [facility] Administration Morphine Sulfate 2 mg 06/01/17 09:32 Morphine Sulfate IVPUSH Q4H PRN PAIN Multivitamins/Minerals/Vitamin C 1 tab 06/03/17 10:00 06/03/17 09:23 Tab-A-Vit - PO 1 tab DAILY [facility] Administration Ondansetron HCl 4 mg 06/01/17 09:17 Zofran Injection IVPUSH Q6H PRN NAUSEA AND/OR VOMITING Trazodone HCl 50 mg 06/03/17 21:00 Desyrel - PO 06/03/17 21:01 ONCE ONE IMAGIN06/03/[address] -> s/p external fixation for comminuted fracture of proximal fibula and distal tibia. No soft tissue masses of fluid collections identified. ASSESSMENT/PLAN: 61yo F with PMH of panic attacks, chronic back pain, presented s/p fall 2/2 shaking episode, admitted for tib-fib fx and possible seizure disorder. # Right Tib/Fib Fx - POD #2 - ID (Dr. Fraser) recs appreciated: continue IV Ancef (Day 3) - wound care per surgery - continue VAC - pain management with Dilaudid HIRED HELP and Morphine prn - for OR tomorrow for exploration and possible internal fixation # anxiety -continue Xanax prn - add Celexa - Trazadone added for tonight # shaking episode - not likely a seizure disorder - Fall precautions # hypomagnesemia - repleted with Mg Oxide 400mg BID x 2 doses # FEN - Fluids: po - Electrolytes: continue to monitor - Nutrition: regular diet, npo after midnight # Prophylaxis - DVT ppx with Lovenox BID - to be held after midnight for procedure tomorrow - deconditioning ppx with PT Visit type - Emergency Visit Emergency Visit: Yes ED Registration Date: 05/31/17 Care time: The patient presented to the Emergency Department on the above date and was hospitalized for further evaluation of their emergent condition. - New Patient This patient is new to me today: No - Critical Care Critical Care patient: No
[2017-06-03] MEDS ORDERED: PT OWN MED DRAWER 7, Y5N ONE (21:29)
[2017-06-03] MEDS: MELATONIN 1 MG TABLET PO SCH (21:30)
[2017-06-03] MEDS ORDERED: ENOXAPARIN NA (PORCINE) 30 MG/0.3 ML DISP.SYRIN SQ ONE (22:00)
[2017-06-04] MEDS: CEFAZOLIN 2 GM/D5W 2 GM/50 ML ML IVPB SCH ×3 (02:26→18:15)
[2017-06-04] MEDS: HYDROmorphone *PCA* 10MG/50ML DISP.SYRIN PCA SCH (04:53)
--- NOTE | 2017-06-04 07:08 | PN ---
Progress Note, Physician Chief Complaint: S/P repair open fracture right leg History of Present Illness: under general anesthesia post op day 1 - Current Medication List Current Medications: Active Medications Acetaminophen (Tylenol -) 650 mg PO Q4H PRN PRN Reason: FEVER OR PAIN Alprazolam (Xanax -) 0.5 mg PO BID PRN PRN Reason: ANXIETY Last Admin: 06/03/17 21:30 Dose: 0.5 mg Calcium Carbonate/Cholecalciferol (Os-Romel 500+D -) 1 tab PO BID [facility] Last Admin: 06/03/17 21:26 Dose: 1 tab Citalopram Hydrobromide (Celexa -) 10 mg PO DAILY [facility] Docusate Sodium (Colace -) 100 mg PO TID [facility] Last Admin: 06/03/17 21:27 Dose: 100 mg Fentanyl (Sublimaze Injection -) 50 mcg IVPUSH [id number] PRN PRN Reason: PAIN Ferrous Sulfate (Feosol -) 325 mg PO BIDWM [facility] Last Admin: 06/03/17 18:10 Dose: 325 mg Hydromorphone HCl (Dilaudid Learning Center Coordinator -) 10 mg HAIR SALON MANAGER HAIR SALON MANAGER [facility] PRN Reason: Protocol Stop: 06/08/17 10:13 Last Admin: 06/04/17 04:53 Dose: 10 mg Cefazolin Sodium/Dextrose (Ancef 2 Gm Premixed Ivpb -) 2 gm in 50 mls @ 100 mls /hr IVPB Q8H-IV [facility] Last Admin: 06/04/17 02:26 Dose: 100 mls/hr Magnesium Oxide (Mag-Ox -) 400 mg PO BID [facility] Stop: 06/04/17 10:59 Last Admin: 06/03/17 21:26 Dose: 400 mg Melatonin (Melatonin) 3 mg PO HS [facility] Last Admin: 06/03/17 21:30 Dose: 3 mg Morphine Sulfate (Morphine Sulfate) 2 mg IVPUSH Q4H PRN PRN Reason: PAIN Multivitamins/Minerals/Vitamin C (Tab-A-Vit -) 1 tab PO DAILY [facility] Last Admin: 06/03/17 09:23 Dose: 1 tab Ondansetron HCl (Zofran Injection) 4 mg IVPUSH Q6H PRN PRN Reason: NAUSEA AND/OR VOMITING - Objective Vital Signs: Vital Signs Temperature 97.6 F 06/04/17 06:00 Pulse Rate 67 06/04/17 06:00 Respiratory Rate 20 06/04/17 06:00 Blood Pressure 122/63 06/04/17 06:00 O2 Sat by Pulse Oximetry (%) 95 06/03/17 21:00 Constitutional: Yes: Well Nourished Cardiovascular: Yes: WNL Respiratory: Yes: WNL Gastrointestinal: Yes: WNL Labs: CBC, BMP 06/03/17 06:30 06/03/17 06:30 INR, PTT INR 1.09 (0.82-1.09) 06/01/17 10:34 Assessment/Plan Patient is using her HAIR SALON MANAGER although ineffectively due to misunderstanding that the senior applications engineer will make her urinate more. educated the patient on proper senior applications engineer use. She will be going to the OR for ORIF of LE on 06/04/17. Will continue HAIR SALON MANAGER until after the surgery. Otherwise no adverse effect of anesthetic.
[2017-06-04 08:21] LABS: MCH 30.3 pg (25.7-33.7); MCHC 32.3 g/dl (32.0-36.0); MEAN CELL VOLUME 93.7 fl (80-96); MEAN PLT VOLUME 9.4 fl (7.5-11.1); PLATELET COUNT 309 K/MM3 (134-434); RDW 13.4 % (11.6-15.6); WHITE BLOOD COUNT 7.5 K/mm3 (4.0-10.0)
[2017-06-04 08:44] LABS: ANION GAP 9 (8-16); CALCIUM 8.6 mg/dL (8.5-10.1); CO2 29 mmol/L (21-32); CREATININE 0.7 mg/dL (0.55-1.02); GLUCOSE,RANDOM 84 mg/dL (74-106); MAGNESIUM 1.8 mg/dL (1.8-2.4); PHOSPHOROUS 3.1 mg/dL (2.5-4.9)
[2017-06-04] MEDS ORDERED: PT OWN MED DRAWER 7, Y5N ONE (09:28)
[2017-06-04] MEDS: ALPRAZolam 0.25 MG TABLET PO PRN ×2 (09:30→22:30)
[2017-06-04] MEDS: MAGNESIUM OXIDE 400 MG TABLET (FP) PO SCH (09:30)
[2017-06-04] MEDS ORDERED: CITALOPRAM HYDROBROMIDE 10 MG TABLET (FP) PO SCH (10:00)
[2017-06-04] MEDS: FERROUS SO4 325 MG TABLET (FP) PO SCH (10:47)
[2017-06-04] MEDS: MULTIVITAMINS (DAILY MVI) TABLET (FP) PO SCH (10:47)
[2017-06-04] MEDS: DOCUSATE SODIUM 100 MG CAPSULE (FP) PO SCH ×2 (10:47→14:36)
[2017-06-04] MEDS: CALCIUM 500MG/VIT-D 200 UNITS COMBO TABLET (FP) PO SCH ×2 (10:47→22:16)
[2017-06-04] MEDS ORDERED: POTASSIUM CHLORIDE TABS 20 MEQ TABLET.ER (FP) PO ONE (11:15)
[2017-06-04] MEDS ORDERED: MIDAZOLAM HCL 2 MG/2 ML SINGLE DOSE VIAL ONE ×2 (13:14)
[2017-06-04] MEDS ORDERED: PROPOFOL 20 ML ONE (13:14)
[2017-06-04] MEDS ORDERED: fentaNYL CITRATE 250 MCG/5 ML VIAL ONE ×3 (13:14→16:03)
--- NOTE | 2017-06-04 14:30 | PN ---
Progress Note, Physician History of Present Illness: Pt seen in OR waiting area with Dr Zuñiga No c/o leg pain at present Afebrile BC no growth Narfranky MRSA screen negative - Current Medication List Current Medications: Active Medications Acetaminophen (Tylenol -) 650 mg PO Q4H PRN PRN Reason: FEVER OR PAIN Alprazolam (Xanax -) 0.5 mg PO BID PRN PRN Reason: ANXIETY Last Admin: 06/04/17 09:30 Dose: 0.5 mg Calcium Carbonate/Cholecalciferol (Os-Romel 500+D -) 1 tab PO BID [facility] Last Admin: 06/04/17 10:47 Dose: Not Given Citalopram Hydrobromide (Celexa -) 10 mg PO DAILY [facility] Last Admin: 06/04/17 09:30 Dose: 10 mg Docusate Sodium (Colace -) 100 mg PO TID [facility] Last Admin: 06/04/17 10:47 Dose: Not Given Fentanyl (Sublimaze Injection -) 50 mcg IVPUSH [id number] PRN PRN Reason: PAIN Ferrous Sulfate (Feosol -) 325 mg PO BIDWM [facility] Last Admin: 06/04/17 10:47 Dose: Not Given Hydromorphone HCl (Dilaudid Cinnamon Grinder -) 10 mg TRAILER STEERER TRAILER STEERER [facility] PRN Reason: Protocol Stop: 06/08/17 10:13 Last Admin: 06/04/17 04:53 Dose: 10 mg Cefazolin Sodium/Dextrose (Ancef 2 Gm Premixed Ivpb -) 2 gm in 50 mls @ 100 mls /hr IVPB Q8H-IV [facility] Last Admin: 06/04/17 09:30 Dose: 100 mls/hr Melatonin (Melatonin) 3 mg PO HS [facility] Last Admin: 06/03/17 21:30 Dose: 3 mg Morphine Sulfate (Morphine Sulfate) 2 mg IVPUSH Q4H PRN PRN Reason: PAIN Multivitamins/Minerals/Vitamin C (Tab-A-Vit -) 1 tab PO DAILY [facility] Last Admin: 06/04/17 10:47 Dose: Not Given Ondansetron HCl (Zofran Injection) 4 mg IVPUSH Q6H PRN PRN Reason: NAUSEA AND/OR VOMITING Potassium Chloride (K-Dur -) 40 meq PO DAILY [facility] Stop: 06/09/17 10:29 - Objective Vital Signs: Vital Signs Temperature 98.5 F 06/04/17 10:00 Pulse Rate 76 06/04/17 10:00 Respiratory Rate 20 06/04/17 10:00 Blood Pressure 157/74 06/04/17 10:00 O2 Sat by Pulse Oximetry (%) 95 06/04/17 09:00 Constitutional: Yes: No Distress Eyes: Yes: Conjunctiva Clear Cardiovascular: Yes: Regular Rate and Rhythm, S1, S2 Respiratory: Yes: CTA Bilaterally Gastrointestinal: Yes: Normal Bowel Sounds, Soft. No: Tenderness Extremities: Yes: Other (R LE wound healing well No erythema/ drainage) Labs: CBC, BMP 06/04/17 07:15 06/04/17 07:15 INR, PTT INR 1.09 (0.82-1.09) 06/01/17 10:34 Assessment/Plan S/P open fracture R tibia Low grade fever/ leukocytosis- resolved For ORIF in OR today No objection to surgery from ID standpoint Continue cefazolin
[2017-06-04] MEDS ORDERED: ONDANSETRON 4 MG/2 ML VIAL ONE (14:39)
[2017-06-04] MEDS ORDERED: DEXAMETHASONE SOD PHOSPHATE 4 MG/1 ML VIAL ONE (14:39)
[2017-06-04] MEDS: HYDROmorphone HCL CARPU-JECT 1 MG/1 ML DISP.SYRIN IVPUSH PRN ×3 (17:30→18:10)
--- NOTE | 2017-06-04 17:37 | PN ---
Teaching Attending Note Name of Resident: Tiki Nguyen ATTENDING PHYSICIAN STATEMENT I saw and evaluated the patient. I reviewed the resident's note and discussed the case with the resident. I agree with the resident's findings and plan as documented. SUBJECTIVE: No fever or hcills. has minimal pain, cont to feel anxious OBJECTIVE: NAD ,AAOx3 . CV: RRR, no MRG Lungs : decreased breath sounds at bases , no crackles or wheezes Abd: soft, NT, ND , NL BS Ext: R leg wrapped with gauze and has an external fixator. DP 2+ b/l thigs with no edema or erythema ASSESSMENT AND PLAN: 61 y/o lady with h/o Anxiety , depression , panic attacks , and other medical problems who presented with a fall resulting in R tibial Fx 1- R tibial Fx: POD 3 s/p external Fixation and I+D . TO OR today for IM nail - cont pain management - DVT Px after sx - for OR tomorrow for exploration and possible IM nailing - Cont Abx 2- severe anxity disorder: - cont xanax PRN - cont celexa . 3- episode of shaking at home : per neuro eval, no evidence of seizure especially the shaking was generalized but she remained awake - monitor Dispo : HLOC. for placement at dc
--- NOTE | 2017-06-04 17:44 | OP ---
Operative Note - Note: Operative Date: 06/04/17 Pre-Operative Diagnosis: Right open tibia fracture Operation: Open reduction, Internal fixation of right tibia with intrameddulary nail, irrigation and debridement. Implants: Right tibia Intramedually nail, screws X4 Post-Operative Diagnosis: Same as Pre-op Surgeon: Jethro Zuñiga Metal Tile Setter: Samara Johns Anesthesiologist/ELECTRONIC NEWS GATHERING CAMERA PERSON: Kimo Echevarria Anesthesia: General Estimated Blood Loss (mls): 200 Drains & Tubes with Location: wound vac to right distal 3rd Lower extremity Fluid Volume Replaced (mls): 700 Operative Report Dictated: Yes
[2017-06-04] MEDS ORDERED: LORazepam 2 MG/ML SDV VIAL IVPUSH ONE (17:45)
--- NOTE | 2017-06-04 17:45 | SURG ---
Surgery Wool Supplier Note Wool Supplier: Samara Johns PA-C Diagnosis: right open tibia fracture, s/p External fixator Procedure: Open reduction, Internal fixation of right tibia with intrameddulary nail, irrigation and debridement. removal of external fixator I was present for the entirety of the operative procedure. For further detail, please refer to operative report. Visit type - Case Type Case Type: ED Admission - Emergency Emergency Visit: Yes ED Registration Date: 05/31/17 Care time: The patient presented to the Emergency Department on the above date and was hospitalized for further evaluation of their emergent condition. - New patient This patient is new to me today: Yes Date on this admission: 06/04/17
[2017-06-04] MEDS ORDERED: ONDANSETRON 4 MG/2 ML VIAL IVPUSH PRN (17:50)
[2017-06-04] MEDS ORDERED: VANCOMYCIN 1 GRAM (PRE-DOCKED) 1,000 MG/250 ML BAG IVPB ONE (17:50)
[2017-06-04] MEDS ORDERED: morphine SULFATE 4 MG/ML VIAL IVPUSH PRN (17:50)
[2017-06-04] MEDS ORDERED: HYDROmorphone HCL CARPU-JECT 2 MG/1 ML DISP.SYRIN ONE (17:52)
[2017-06-04] MEDS ORDERED: ceFAZolin SODIUM 1 GM VIAL ONE (18:10)
[2017-06-04] MEDS ORDERED: VANCOMYCIN 1,000 MG in DEXTROSE 5%-WATER - 250 ML IVPB ONE (18:30)
[2017-06-04] MEDS: LACTATED RINGERS SOLUTION 1,000 ML IV SCH (20:00)
--- NOTE | 2017-06-04 20:13 | PN ---
Physical Exam: SUBJECTIVE: Patient seen and examined. Pain is controlled. Pt continues to c/ o anxiety and insomnia. No events overnight. OBJECTIVE: Vital Signs Period Temp Pulse Resp BP Sys/Gruber Pulse Ox Last 24 Hr 97.6 F-98.5 F 67-88 20-20 122-158/63-89 95-95 GENERAL: The patient is awake, alert, and fully oriented, in no acute distress. LUNGS: Breath sounds equal, clear to auscultation bilaterally, no wheezes, no crackles, no accessory muscle use. HEART: Regular rate and rhythm, S1, S2 without murmur, rub or gallop. ABDOMEN: Soft, nontender, nondistended. EXTREMITIES: Warm, well-perfused, no edema. Right LE with external fixation apparatus and wrapped post-op. Able to move toes to pamela LE. SKIN: Warm, dry, normal turgor, no rashes or lesions noted Laboratory Results - last 24 hr 06/04/17 06/04/17 07:15 07:15 WBC 7.5 RBC 3.81 Hgb 11.5 Hct 35.7 MCV 93.7 MCH 30.3 MCHC 32.3 RDW 13.4 Plt Count 309 MPV 9.4 Sodium 144 Potassium 3.3 L Chloride 106 Carbon Dioxide 29 D Anion Gap 9 BUN 6 L D Creatinine 0.7 Random Glucose 84 Calcium 8.6 Phosphorus 3.1 Magnesium 1.8 Active Medications Generic Name Dose Route Start Last Admin Trade Name Freq PRN Reason Stop Dose Admin Acetaminophen 650 mg 06/04/17 17:50 Tylenol - PO Q4H PRN FEVER OR PAIN Alprazolam 0.5 mg 06/04/17 17:50 Xanax - PO BID PRN ANXIETY Calcium Carbonate/Cholecalciferol 1 tab 06/04/17 22:00 Os-Romel 500+D - PO BID [facility] Citalopram Hydrobromide 10 mg 06/05/17 10:00 Celexa - PO DAILY [facility] Enoxaparin Sodium 30 mg 06/05/17 10:00 Lovenox - SQ BID [facility] Fentanyl 50 mcg 06/04/17 17:50 Sublimaze Injection - IVPUSH 06/04/17 23:59 [id number] PRN PAIN Ferrous Sulfate 325 mg 06/05/17 08:00 Feosol - PO BIDWM [facility] Hydromorphone HCl 1 mg 06/04/17 17:33 Dilaudid Injection - IVPUSH [id number] PRN PAIN Hydromorphone HCl 10 mg 06/04/17 17:50 Dilaudid Carrot Grader Inspector - [employer] 06/08/17 10:13 [employer] [facility] Protocol Lactated Ringer's 1,000 mls @ 125 mls/hr 06/04/17 17:45 Lactated Ringers Solution IV ASDIR [facility] Cefazolin Sodium/Dextrose 2 gm in 50 mls @ 100 mls/hr 06/04/17 18:00 Ancef 2 Gm Premixed Ivpb - IVPB Q8H-IV [facility] Melatonin 3 mg 06/04/17 22:00 Melatonin PO HS [facility] Morphine Sulfate 2 mg 06/04/17 17:50 Morphine Sulfate IVPUSH Q4H PRN PAIN Multivitamins/Minerals/Vitamin C 1 tab 06/05/17 10:00 Tab-A-Vit - PO DAILY [facility] Ondansetron HCl 4 mg 06/04/17 17:50 Zofran Injection IVPUSH Q6H PRN NAUSEA AND/OR VOMITING Potassium Chloride 40 meq 06/05/17 10:30 K-Dur - PO 06/09/17 10:29 DAILY [facility] ASSESSMENT/PLAN: 61yo F with PMH of panic attacks, chronic back pain, presented s/p fall 2/2 shaking episode, admitted for tib-fib fx and possible seizure disorder. # Right Tib/Fib Fx s/p external fixation 06/01/17 - s/p ORIF today - ID (Dr. Fraser) recs appreciated: continue IV Ancef (Day 4) - wound care per surgery - continue VAC - pain management with Dilaudid [employer] and Morphine prn # anxiety - continue Xanax prn and Celexa # shaking episode - not likely a seizure disorder - Fall precautions # hypokalemia - repleted with KCl 40meq po once # FEN - Fluids: LR @ 125 ml/hr - Electrolytes: continue to monitor - Nutrition: clear liquid # Prophylaxis - DVT ppx with Lovenox BID resumed for tomorrow - deconditioning ppx with PT Visit type - Emergency Visit Emergency Visit: Yes ED Registration Date: 05/31/17 Care time: The patient presented to the Emergency Department on the above date and was hospitalized for further evaluation of their emergent condition. - New Patient This patient is new to me today: No - Critical Care Critical Care patient: No
[2017-06-04] MEDS: MELATONIN 1 MG TABLET PO SCH (22:16)
[2017-06-05] MEDS: CEFAZOLIN 2 GM/D5W 2 GM/50 ML ML IVPB SCH ×2 (01:23→09:26)
[2017-06-05] MEDS: FERROUS SO4 325 MG TABLET (FP) PO SCH ×2 (08:43→18:41)
[2017-06-05] MEDS: LACTATED RINGERS SOLUTION 1,000 ML IV SCH (09:04)
[2017-06-05] MEDS: HYDROmorphone *PCA* 10MG/50ML DISP.SYRIN PCA SCH (09:05)
[2017-06-05] MEDS: ENOXAPARIN NA (PORCINE) 30 MG/0.3 ML DISP.SYRIN SQ SCH ×2 (09:26→21:33)
[2017-06-05] MEDS: CALCIUM 500MG/VIT-D 200 UNITS COMBO TABLET (FP) PO SCH ×2 (09:27→21:32)
[2017-06-05] MEDS: ALPRAZolam 0.25 MG TABLET PO PRN ×2 (09:27→21:32)
[2017-06-05] MEDS: MULTIVITAMINS (DAILY MVI) TABLET (FP) PO SCH (09:27)
--- NOTE | 2017-06-05 10:20 | PN ---
Progress Note (short form) - Note Progress Note: POD #1 - s/p right lower extremity tibial nail under general anesthesia. VSS. Pt. doing well, resting comfortably in bed. Has been on VENEER JOINTER OFFBEARER since first surgery on 06/01 with good pain control. No apparent anesthetic complications noted. Will continue VENEER JOINTER OFFBEARER for now.
[2017-06-05] MEDS ORDERED: POTASSIUM CHLORIDE TABS 20 MEQ TABLET.ER (FP) PO SCH (10:30)
[2017-06-05] MEDS: POTASSIUM CHLORIDE TABS 20 MEQ TABLET.ER (FP) PO SCH (11:05)
[2017-06-05] MEDS: CITALOPRAM HYDROBROMIDE 10 MG TABLET (FP) PO SCH (11:05)
--- NOTE | 2017-06-05 13:51 | PN ---
Progress Note, Physician History of Present Illness: No c/o leg pain at present Low grade temp noted WBC WNL BC no growth Nares MRSA screen negative - Current Medication List Current Medications: Active Medications Acetaminophen (Tylenol -) 650 mg PO Q4H PRN PRN Reason: FEVER OR PAIN Alprazolam (Xanax -) 0.5 mg PO BID PRN PRN Reason: ANXIETY Last Admin: 06/05/17 09:27 Dose: 0.5 mg Calcium Carbonate/Cholecalciferol (Os-Romel 500+D -) 1 tab PO BID [facility] Last Admin: 06/05/17 09:27 Dose: 1 tab Citalopram Hydrobromide (Celexa -) 10 mg PO DAILY [facility] Last Admin: 06/05/17 11:05 Dose: 10 mg Enoxaparin Sodium (Lovenox -) 30 mg SQ BID [facility] Last Admin: 06/05/17 09:26 Dose: 30 mg Ferrous Sulfate (Feosol -) 325 mg PO BIDWM [facility] Last Admin: 06/05/17 08:43 Dose: 325 mg Hydromorphone HCl (Dilaudid Injection -) 1 mg IVPUSH [id number] PRN PRN Reason: PAIN Last Admin: 06/04/17 18:10 Dose: 1 mg Hydromorphone HCl (Dilaudid Mrp Controller -) 10 mg CARBONATION TESTER CARBONATION TESTER [facility] PRN Reason: Protocol Stop: 06/08/17 10:13 Last Admin: 06/05/17 09:05 Dose: 10 mg Lactated Ringer's (Lactated Ringers Solution) 1,000 mls @ 75 mls/hr IV ASDIR [facility] Last Admin: 06/05/17 09:04 Dose: 75 mls/hr Cefazolin Sodium/Dextrose (Ancef 2 Gm Premixed Ivpb -) 2 gm in 50 mls @ 100 mls /hr IVPB Q8H-IV [facility] Last Admin: 06/05/17 09:26 Dose: 100 mls/hr Melatonin (Melatonin) 3 mg PO HS [facility] Last Admin: 06/04/17 22:16 Dose: 3 mg Morphine Sulfate (Morphine Sulfate) 2 mg IVPUSH Q4H PRN PRN Reason: PAIN Multivitamins/Minerals/Vitamin C (Tab-A-Vit -) 1 tab PO DAILY [facility] Last Admin: 06/05/17 09:27 Dose: 1 tab Ondansetron HCl (Zofran Injection) 4 mg IVPUSH Q6H PRN PRN Reason: NAUSEA AND/OR VOMITING Potassium Chloride (K-Dur -) 40 meq PO DAILY [facility] Stop: 06/09/17 10:29 Last Admin: 06/05/17 11:05 Dose: 40 meq Zolpidem Tartrate (Ambien -) 10 mg PO HS PRN PRN Reason: INSOMNIA - Objective Vital Signs: Vital Signs Temperature 99.7 F H 06/05/17 05:33 Pulse Rate 80 06/05/17 05:33 Respiratory Rate 20 06/05/17 05:33 Blood Pressure 145/72 06/05/17 05:33 O2 Sat by Pulse Oximetry (%) 95 06/04/17 22:00 Constitutional: Yes: No Distress Eyes: Yes: Conjunctiva Clear Cardiovascular: Yes: Regular Rate and Rhythm, S1, S2 Respiratory: Yes: CTA Bilaterally Gastrointestinal: Yes: Normal Bowel Sounds, Soft. No: Tenderness Extremities: Yes: Other (R LE with surgical dressing in place) Labs: CBC, BMP 06/04/17 07:15 06/04/17 07:15 INR, PTT INR 1.09 (0.82-1.09) 06/01/17 10:34 Assessment/Plan S/P ORIF open fracture R tibia POD #1 D/C cefazolin , observe Outpatient ortho follow up Pt aware risk for post-traumatic osteomyelitis approx 25%
[2017-06-05 18:52] LABS: MCHC 33.4 g/dl (32.0-36.0); MEAN CELL VOLUME 92.8 fl (80-96); MEAN PLT VOLUME 9.2 fl (7.5-11.1); PLATELET COUNT 325 K/MM3 (134-434); RDW 13.3 % (11.6-15.6); WHITE BLOOD COUNT 9.9 K/mm3 (4.0-10.0)
--- NOTE | 2017-06-05 19:05 | PN ---
Teaching Attending Note Name of Resident: Tiki Nguyen ATTENDING PHYSICIAN STATEMENT I saw and evaluated the patient. I reviewed the resident's note and discussed the case with the resident. I agree with the resident's findings and plan as documented. SUBJECTIVE: no fever or chills, no sleep last night. OBJECTIVE: NAD ,AAOx3 . CV: RRR, no MRG Lungs : decreased breath sounds at bases , no crackles or wheezes Abd: soft, NT, ND , NL BS Ext: with a dressing and BAM wraps and a vac over R leg . DP 2+ . no edema or erythema on . 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 3- Episode of shaking: need f/u with neuro as out pt and also psych. HLOC
--- NOTE | 2017-06-05 19:11 | PN ---
Progress Note (short form) - Note Progress Note: Patient seen lying in bed. Her pain is well controlled. Her dressing feels a little tight. AF VSS RLE dressings CDI except some spotting about calcaneal pin sites. Vac in place calves soft NT Sens int to lt EHL FHL intact 2+ dp pulse a/p: POD 1 R tibia I+D and IM nail -continue abx -continue VAC -oob -strict nonweightbearing on right leg -PT for ambulation with walker -plan vac removal thursday -lauren wrap loosened -lovenox bid x4 weeks
[2017-06-05 19:20] LABS: ALBUMIN 2.7 g/dl (3.4-5.0); ALK PHOS 66 U/L (45-117); ANION GAP 8 (8-16); BILIRUBIN,TOTAL 0.3 mg/dL (0.2-1.0); CO2 27 mmol/L (21-32); CREATININE 0.8 mg/dL (0.55-1.02); GLUCOSE,RANDOM 127 mg/dL (74-106); SGOT/AST 5 U/L (15-37); SGPT/ALT 6 U/L (12-78); TOT PROT 5.2 g/dl (6.4-8.2)
--- NOTE | 2017-06-05 20:13 | PN ---
Physical Exam: SUBJECTIVE: Patient seen and examined. Pain is controlled. Pt continues to c/ o insomnia. Pt reports having a bowel movement. No fever, chills. No events overnight. OBJECTIVE: Vital Signs Period Temp Pulse Resp BP Sys/Gruber Pulse Ox Last 24 Hr 97.6 F-99.8 F 77-88 10-20 132-145/66-74 95-95 GENERAL: The patient is awake, alert, and fully oriented, in no acute distress. LUNGS: Breath sounds equal, clear to auscultation bilaterally, no wheezes, no crackles, no accessory muscle use. HEART: Regular rate and rhythm, S1, S2 without murmur, rub or gallop. ABDOMEN: Soft, nontender, nondistended. EXTREMITIES: Warm, well-perfused, no edema. Right LE with wound vac and wrapped post-op. Able to move toes to pamela LE. SKIN: Warm, dry, normal turgor, no rashes or lesions noted Laboratory Results - last 24 hr 06/05/17 06/05/17 06/05/17 07:00 07:00 18:15 WBC 9.9 D RBC 3.19 L Hgb 9.9 L D Hct 29.7 L D MCV 92.8 MCH 31.0 MCHC 33.4 RDW 13.3 Plt Count 325 MPV 9.2 ESR 17 Sodium Potassium Chloride Carbon Dioxide Anion Gap BUN Creatinine Creat Clearance w eGFR Random Glucose Calcium Total Bilirubin AST ALT Alkaline Phosphatase C-Reactive Protein 1.5 H Total Protein Albumin 06/05/17 18:15 WBC RBC Hgb Hct MCV MCH MCHC RDW Plt Count MPV ESR Sodium 143 Potassium 3.7 Chloride 108 H Carbon Dioxide 27 Anion Gap 8 BUN 8 D Creatinine 0.8 Creat Clearance w eGFR > 60 Random Glucose 127 H D Calcium 8.0 L Total Bilirubin 0.3 D AST 5 L D ALT 6 L D Alkaline Phosphatase 66 C-Reactive Protein Total Protein 5.2 L Albumin 2.7 L Active Medications Generic Name Dose Route Start Last Admin Trade Name Freq PRN Reason Stop Dose Admin Acetaminophen 650 mg 06/04/17 17:50 Tylenol - PO Q4H PRN FEVER OR PAIN Alprazolam 0.5 mg 06/04/17 17:50 06/05/17 09:27 Xanax - PO 0.5 mg BID PRN Administration ANXIETY Calcium Carbonate/Cholecalciferol 1 tab 06/04/17 22:00 06/05/17 09:27 Os-Romel 500+D - PO 1 tab BID [facility] Administration Citalopram Hydrobromide 10 mg 06/05/17 10:00 06/05/17 11:05 Celexa - PO 10 mg DAILY [facility] Administration Enoxaparin Sodium 30 mg 06/05/17 10:00 06/05/17 09:26 Lovenox - SQ 30 mg BID [facility] Administration Ferrous Sulfate 325 mg 06/05/17 08:00 06/05/17 18:41 Feosol - PO 325 mg BIDWM [facility] Administration Hydromorphone HCl 1 mg 06/04/17 17:33 06/04/17 18:10 Dilaudid Injection - IVPUSH 1 mg [id number] PRN Administration PAIN Melatonin 3 mg 06/04/17 22:00 06/04/17 22:16 Melatonin PO 3 mg HS [facility] Administration Morphine Sulfate 2 mg 06/04/17 17:50 Morphine Sulfate IVPUSH Q4H PRN PAIN Multivitamins/Minerals/Vitamin C 1 tab 06/05/17 10:00 06/05/17 09:27 Tab-A-Vit - PO 1 tab DAILY [facility] Administration Ondansetron HCl 4 mg 06/04/17 17:50 Zofran Injection IVPUSH Q6H PRN NAUSEA AND/OR VOMITING Potassium Chloride 40 meq 06/05/17 10:30 06/05/17 11:05 K-Dur - PO 06/09/17 10:29 40 meq DAILY [facility] Administration Zolpidem Tartrate 10 mg 06/05/17 08:19 Ambien - PO HS PRN INSOMNIA ASSESSMENT/PLAN: 61yo F with PMH of panic attacks, chronic back pain, presented s/p fall 2/2 shaking episode, admitted for tib-fib fx and possible seizure disorder. # Right Tib/Fib Fx s/p external fixation 06/01/17, s/p Right tibial nail ORIF on 06/04/17 - POD 1 - ID (Dr. Fraser) recs appreciated: Day 5 of IV Ancef, last dose, D/Lex - wound care per surgery - continue VAC (plan is for vac removal on Thursday) - Right LE is non-weight bearing - pain management with Dilaudid prn and Morphine prn # insomnia - Ambien HS - Melatonin HS # anxiety - continue Xanax prn and Celexa # shaking episode - not likely a seizure disorder - Fall precautions - f/u with Neuro and Psych as outpt # FEN - Fluids: po - Electrolytes: continue to monitor - Nutrition: regular # Prophylaxis - DVT ppx with Lovenox BID - deconditioning ppx with PT, ambulation with walker Visit type - Emergency Visit Emergency Visit: Yes ED Registration Date: 05/31/17 Care time: The patient presented to the Emergency Department on the above date and was hospitalized for further evaluation of their emergent condition. - New Patient This patient is new to me today: No - Critical Care Critical Care patient: No
[2017-06-05] MEDS: MELATONIN 1 MG TABLET PO SCH (21:31)
[2017-06-05] MEDS: ZOLPIDEM TARTRATE 5 MG TABLET PO PRN (21:33)
[2017-06-06] MEDS ORDERED: oxyCODONE/APAP 1 EACH - MUST ORDER COMBO PRODUCT NR PRN (09:07)
[2017-06-06] MEDS ORDERED: fentaNYL 75mcg/hr PATCH.TD72 TD SCH (09:15)
[2017-06-06] MEDS ORDERED: PT OWN MED DRAWER 7, Y5N ONE (09:32)
[2017-06-06] MEDS: ALPRAZolam 0.25 MG TABLET PO PRN ×2 (09:33→21:59)
[2017-06-06] MEDS: CITALOPRAM HYDROBROMIDE 10 MG TABLET (FP) PO SCH (09:33)
[2017-06-06] MEDS: FERROUS SO4 325 MG TABLET (FP) PO SCH ×2 (09:36→17:09)
[2017-06-06] MEDS: CALCIUM 500MG/VIT-D 200 UNITS COMBO TABLET (FP) PO SCH ×2 (09:36→22:00)
[2017-06-06] MEDS: MULTIVITAMINS (DAILY MVI) TABLET (FP) PO SCH (09:36)
[2017-06-06] MEDS: ENOXAPARIN NA (PORCINE) 30 MG/0.3 ML DISP.SYRIN SQ SCH ×2 (09:36→21:59)
[2017-06-06] MEDS: POTASSIUM CHLORIDE TABS 20 MEQ TABLET.ER (FP) PO SCH (09:36)
[2017-06-06] MEDS ORDERED: ACETAMINOPHEN 325 MG TABLET (FP) PO PRN (11:16)
[2017-06-06] MEDS: HYDROmorphone HCL CARPU-JECT 2 MG/1 ML DISP.SYRIN IVPB PRN ×2 (11:18→20:18)
[2017-06-06] MEDS: fentaNYL 75mcg/hr PATCH.TD72 TD SCH (12:20)
--- NOTE | 2017-06-06 15:37 | PN ---
Teaching Attending Note Name of Resident: Tiki Nguyen ATTENDING PHYSICIAN STATEMENT I saw and evaluated the patient. I reviewed the resident's note and discussed the case with the resident. I agree with the resident's findings and plan as documented. SUBJECTIVE: No fever or chills. slept last night . pain is well controlled OBJECTIVE: NAD ,AAOx3 . CV: RRR, no MRG Lungs : CTAB Abd: soft, NT, ND , NL BS Ext: with a dressing and BAM wraps and a vac over R leg . DP 2+ . no edema or erythema on . 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 3- Episode of shaking: need f/u with neuro as out pt and also psych. HLOC
[2017-06-06] MEDS: oxyCODONE HCL 5 MG TABLET PO PRN ×2 (15:46→22:00)
--- NOTE | 2017-06-06 15:49 | PN ---
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 VSS. MOTOR INSPECTION MECHANIC discontinued earlier today and pain meds including fentanyl patch ordered by covering physician. Continue current care.
[2017-06-06 17:06] LABS: MCH 31.7 pg (25.7-33.7); MCHC 33.9 g/dl (32.0-36.0); MEAN CELL VOLUME 93.6 fl (80-96); MEAN PLT VOLUME 8.9 fl (7.5-11.1); PLATELET COUNT 363 K/MM3 (134-434); RDW 13.3 % (11.6-15.6)
[2017-06-06 17:31] LABS: ALBUMIN 2.9 g/dl (3.4-5.0); ANION GAP 7 (8-16); BILIRUBIN,TOTAL 0.3 mg/dL (0.2-1.0); CALCIUM 8.1 mg/dL (8.5-10.1); CO2 29 mmol/L (21-32); CREATININE 0.6 mg/dL (0.55-1.02); GLUCOSE,RANDOM 102 mg/dL (74-106); SGOT/AST 6 U/L (15-37); SGPT/ALT 7 U/L (12-78); TOT PROT 5.7 g/dl (6.4-8.2)
[2017-06-06 17:32] LABS: ALK PHOS 70 U/L (45-117)
--- NOTE | 2017-06-06 21:14 | PN ---
Physical Exam: SUBJECTIVE: Patient seen and examined. Pain is controlled. Pt slept last night. No fever, chills. No events overnight. OBJECTIVE: Vital Signs Period Temp Pulse Resp BP Sys/Gruber Pulse Ox Last 24 Hr 98 F-99.4 F 76-93 18-20 116-146/65-78 GENERAL: The patient is awake, alert, and fully oriented, in no acute distress. LUNGS: Breath sounds equal, clear to auscultation bilaterally, no wheezes, no crackles, no accessory muscle use. HEART: Regular rate and rhythm, S1, S2 without murmur, rub or gallop. ABDOMEN: Soft, nontender, nondistended. EXTREMITIES: Warm, well-perfused, no edema. Right LE with wound vac and wrapped post-op. Able to move toes to pamela LE. SKIN: Warm, dry, normal turgor, no rashes or lesions noted Laboratory Results - last 24 hr 06/06/17 06/06/17 16:58 17:45 WBC 10.0 RBC 3.35 L Hgb 10.6 L Hct 31.3 L MCV 93.6 MCH 31.7 MCHC 33.9 RDW 13.3 Plt Count 363 MPV 8.9 Sodium 143 Potassium 3.8 Chloride 107 Carbon Dioxide 29 Anion Gap 7 L BUN 11 D Creatinine 0.6 D Creat Clearance w eGFR > 60 Random Glucose 102 Calcium 8.1 L Total Bilirubin 0.3 AST 6 L ALT 7 L Alkaline Phosphatase 70 Total Protein 5.7 L Albumin 2.9 L Active Medications Generic Name Dose Route Start Last Admin Trade Name Freq PRN Reason Stop Dose Admin Acetaminophen 650 mg 06/04/17 17:50 Tylenol - PO Q4H PRN FEVER OR PAIN Acetaminophen 325 mg 06/06/17 11:16 Tylenol - PO 06/09/17 11:15 Q4H PRN PAIN SCALE 1-7 Alprazolam 0.5 mg 06/04/17 17:50 06/06/17 09:33 Xanax - PO 0.5 mg BID PRN Administration ANXIETY Calcium Carbonate/Cholecalciferol 1 tab 06/04/17 22:00 06/06/17 09:36 Os-Romel 500+D - PO 1 tab BID [facility] Administration Citalopram Hydrobromide 10 mg 06/05/17 10:00 06/06/17 09:33 Celexa - PO 10 mg DAILY [facility] Administration Enoxaparin Sodium 30 mg 06/05/17 10:00 06/06/17 09:36 Lovenox - SQ 30 mg BID [facility] Administration Fentanyl 1 patch 06/06/17 11:45 06/06/17 12:20 Duragesic 75mcg Patch - TD 1 patch Q72H [facility] Administration Ferrous Sulfate 325 mg 06/05/17 08:00 06/06/17 17:09 Feosol - PO 325 mg BIDWM [facility] Administration Hydromorphone HCl 1 mg 06/06/17 09:09 06/06/17 20:18 Dilaudid Injection - IVPB 1 mg Q4H PRN Administration PAIN 8-10 Melatonin 3 mg 06/04/17 22:00 06/05/17 21:31 Melatonin PO Not Given HS [facility] Miscellaneous 1 each 06/06/17 09:09 Duragesic Patch Waste TD PRN PRN PAIN Multivitamins/Minerals/Vitamin C 1 tab 06/05/17 10:00 06/06/17 09:36 Tab-A-Vit - PO 1 tab DAILY [facility] Administration Ondansetron HCl 4 mg 06/04/17 17:50 Zofran Injection IVPUSH Q6H PRN NAUSEA AND/OR VOMITING Oxycodone HCl 10 mg 06/06/17 11:16 06/06/17 15:46 Roxicodone - PO 10 mg Q4H PRN Administration PAIN SCALE 1-7 Potassium Chloride 40 meq 06/05/17 10:30 06/06/17 09:36 K-Dur - PO 06/09/17 10:29 40 meq DAILY [facility] Administration Zolpidem Tartrate 10 mg 06/05/17 08:19 06/05/17 21:33 Ambien - PO 10 mg HS PRN Administration INSOMNIA ASSESSMENT/PLAN: 61yo F with PMH of panic attacks, chronic back pain, presented s/p fall 2/2 shaking episode, admitted for tib-fib fx and possible seizure disorder. # Right Tib/Fib Fx s/p external fixation 06/01/17, s/p Right tibial nail ORIF on 06/04/17 - POD 2 - wound care per surgery - continue VAC (plan is for vac removal on Thursday) - Right LE is non-weight bearing - pain management with Dilaudid prn and Percocet prn - continue home medication of Fentanyl patch for pain # insomnia - continue Ambien and Melatonin at HS # anxiety - continue Xanax prn and Celexa # shaking episode - not likely a seizure disorder - Fall precautions - f/u with Neuro and Psych as outpt # FEN - Fluids: po - Electrolytes: continue to monitor - Nutrition: regular # Prophylaxis - DVT ppx with Lovenox BID - deconditioning ppx with PT, ambulation with walker Visit type - Emergency Visit Emergency Visit: Yes ED Registration Date: 05/31/17 Care time: The patient presented to the Emergency Department on the above date and was hospitalized for further evaluation of their emergent condition. - New Patient This patient is new to me today: No - Critical Care Critical Care patient: No
[2017-06-06] MEDS: ZOLPIDEM TARTRATE 5 MG TABLET PO PRN (22:00)
[2017-06-06] MEDS: MELATONIN 1 MG TABLET PO SCH (22:00)
[2017-06-07] MEDS: oxyCODONE HCL 5 MG TABLET PO PRN ×3 (08:44→21:51)
[2017-06-07] MEDS: FERROUS SO4 325 MG TABLET (FP) PO SCH ×2 (08:44→17:26)
[2017-06-07] MEDS: ACETAMINOPHEN 325 MG TABLET (FP) PO PRN ×3 (08:45→21:50)
[2017-06-07 08:58] LABS: MCH 30.8 pg (25.7-33.7); MCHC 32.7 g/dl (32.0-36.0); MEAN CELL VOLUME 94.4 fl (80-96); MEAN PLT VOLUME 8.9 fl (7.5-11.1); PLATELET COUNT 353 K/MM3 (134-434); RDW 13.4 % (11.6-15.6); WHITE BLOOD COUNT 8.8 K/mm3 (4.0-10.0)
--- NOTE | 2017-06-07 09:37 | PN ---
Progress Note (short form) - Note Progress Note: Feeling well. Pain "much better". No f/c> "Walked with PT" NWB AF No calf tend NVI. Dressings changed except vac which is in place with min drg Mild drainage ss at medial heel ex fix pin site. all other wounds without drainage Able to hold up leg when i changed dsg toe and foot f/e strong Imp: S/p IMN POD#3 Right open tibia fx Plan: dsg changed, Elevate, dvt proph, OOB, PT NWB, cont vac, cont ID [email or web address]
[2017-06-07] MEDS: ALPRAZolam 0.25 MG TABLET PO PRN (10:20)
[2017-06-07] MEDS: ENOXAPARIN NA (PORCINE) 30 MG/0.3 ML DISP.SYRIN SQ SCH ×2 (10:20→21:49)
[2017-06-07] MEDS: CALCIUM 500MG/VIT-D 200 UNITS COMBO TABLET (FP) PO SCH ×2 (10:21→21:50)
[2017-06-07] MEDS: CITALOPRAM HYDROBROMIDE 10 MG TABLET (FP) PO SCH (10:21)
[2017-06-07] MEDS: MULTIVITAMINS (DAILY MVI) TABLET (FP) PO SCH (10:21)
[2017-06-07] MEDS: POTASSIUM CHLORIDE TABS 20 MEQ TABLET.ER (FP) PO SCH (10:21)
[2017-06-07 16:37] LABS: MCH 31.2 pg (25.7-33.7); MEAN CELL VOLUME 94.4 fl (80-96); MEAN PLT VOLUME 9.1 fl (7.5-11.1); PLATELET COUNT 376 K/MM3 (134-434); RDW 13.6 % (11.6-15.6); WHITE BLOOD COUNT 9.3 K/mm3 (4.0-10.0)
[2017-06-07] MEDS ORDERED: ALPRAZolam 0.25 MG TABLET PO PRN (17:03)
--- NOTE | 2017-06-07 17:04 | PN ---
Progress Note (short form) - Note Progress Note: Subjective: no fever or chills. Objective: Vital Signs: Laboratory Results - last 24 hr 06/06/17 06/06/17 06/07/17 16:58 17:45 08:00 WBC 10.0 8.8 RBC 3.35 L 3.33 L Hgb 10.6 L 10.3 L Hct 31.3 L 31.4 L MCV 93.6 94.4 MCH 31.7 30.8 MCHC 33.9 32.7 RDW 13.3 13.4 Plt Count 363 353 MPV 8.9 8.9 Sodium 143 Potassium 3.8 Chloride 107 Carbon Dioxide 29 Anion Gap 7 L BUN 11 D Creatinine 0.6 D Creat Clearance w eGFR > 60 Random Glucose 102 Calcium 8.1 L Total Bilirubin 0.3 AST 6 L ALT 7 L Alkaline Phosphatase 70 Total Protein 5.7 L Albumin 2.9 L 06/07/17 16:27 WBC 9.3 RBC 3.21 L Hgb 10.0 L Hct 30.3 L MCV 94.4 MCH 31.2 MCHC 33.0 RDW 13.6 Plt Count 376 MPV 9.1 Sodium Potassium Chloride Carbon Dioxide Anion Gap BUN Creatinine Creat Clearance w eGFR Random Glucose Calcium Total Bilirubin AST ALT Alkaline Phosphatase Total Protein Albumin Physical Exam: NAD ,AAOx3 . CV: RRR, no MRG Lungs : CTAB Abd: soft, NT, ND , NL BS Ext: with a dressing and BAM wraps and a vac over R leg . DP 2+ . no edema or erythema on . ASSESSMENT AND PLAN: 61 y/o lady with h/o Anxiety , depression , panic attacks , and other medical problems who presented with a fall resulting in R tibial Fx 1- R tibial Fx: s/p external fixation then IM nailing - cont wound vac - off abx - cont dilaudid , percocet and fentanyl patch . will dc dilaudid in ma - vac to be d/c on Thursday 2- Severe anxity disorder: - decrease xanax to daily PRN in preparation to off at dc - cont celexa . 3- Episode of shaking: need f/u with neuro as out pt and also psych. HLOC will be ready for dc on Thursday , after vac is removed. SNF placement Visit type - Emergency Visit Emergency Visit: Yes ED Registration Date: 05/31/17 Care time: The patient presented to the Emergency Department on the above date and was hospitalized for further evaluation of their emergent condition. - New Patient This patient is new to me today: No - Critical Care Critical Care patient: No
[2017-06-07 17:06] LABS: ALBUMIN 2.6 g/dl (3.4-5.0); ALK PHOS 61 U/L (45-117); ANION GAP 8 (8-16); BILIRUBIN,TOTAL 0.2 mg/dL (0.2-1.0); CALCIUM 8.2 mg/dL (8.5-10.1); CO2 29 mmol/L (21-32); CREATININE 0.7 mg/dL (0.55-1.02); GLUCOSE,RANDOM 86 mg/dL (74-106); SGOT/AST 7 U/L (15-37); SGPT/ALT 9 U/L (12-78); TOT PROT 5.3 g/dl (6.4-8.2)
[2017-06-07] MEDS: MELATONIN 1 MG TABLET PO SCH (21:50)
[2017-06-07] MEDS: ZOLPIDEM TARTRATE 5 MG TABLET PO PRN (21:50)
[2017-06-08] MEDS: ACETAMINOPHEN 325 MG TABLET (FP) PO PRN ×4 (04:46→20:48)
[2017-06-08] MEDS: oxyCODONE HCL 5 MG TABLET PO PRN ×4 (04:47→20:48)
[2017-06-08] MEDS: HYDROmorphone *PCA* 10MG/50ML DISP.SYRIN PCA SCH ×2 (07:56→07:57)
[2017-06-08] MEDS: FERROUS SO4 325 MG TABLET (FP) PO SCH ×3 (07:56→17:25)
[2017-06-08] MEDS: CEFAZOLIN 2 GM/D5W 2 GM/50 ML ML IVPB SCH (07:57)
--- NOTE | 2017-06-08 08:30 | PN ---
Progress Note, Physician History of Present Illness: she feels well. sitting up watching tv. pain minimal - Current Medication List Current Medications: Active Medications Acetaminophen (Tylenol -) 650 mg PO Q4H PRN PRN Reason: FEVER OR PAIN Last Admin: 06/08/17 04:46 Dose: 650 mg Acetaminophen (Tylenol -) 325 mg PO Q4H PRN PRN Reason: PAIN SCALE 1-7 Stop: 06/09/17 11:15 Last Admin: 06/06/17 21:59 Dose: 325 mg Alprazolam (Xanax -) 0.5 mg PO DAILY PRN PRN Reason: ANXIETY Calcium Carbonate/Cholecalciferol (Os-Romel 500+D -) 1 tab PO BID [facility] Last Admin: 06/07/17 21:50 Dose: 1 tab Citalopram Hydrobromide (Celexa -) 10 mg PO DAILY [facility] Last Admin: 06/07/17 10:21 Dose: 10 mg Enoxaparin Sodium (Lovenox -) 30 mg SQ BID [facility] Last Admin: 06/07/17 21:49 Dose: 30 mg Fentanyl (Duragesic 75mcg Patch -) 1 patch TD Q72H [facility] Last Admin: 06/06/17 12:20 Dose: 1 patch Ferrous Sulfate (Feosol -) 325 mg PO BIDWM [facility] Last Admin: 06/07/17 17:26 Dose: 325 mg Hydromorphone HCl (Dilaudid Injection -) 1 mg IVPB Q4H PRN PRN Reason: PAIN 8-10 Last Admin: 06/06/17 20:18 Dose: 1 mg Melatonin (Melatonin) 3 mg PO HS [facility] Last Admin: 06/07/17 21:50 Dose: Not Given Miscellaneous (Duragesic Patch Waste) 1 each TD PRN PRN PRN Reason: PAIN Multivitamins/Minerals/Vitamin C (Tab-A-Vit -) 1 tab PO DAILY [facility] Last Admin: 06/07/17 10:21 Dose: 1 tab Ondansetron HCl (Zofran Injection) 4 mg IVPUSH Q6H PRN PRN Reason: NAUSEA AND/OR VOMITING Oxycodone HCl (Roxicodone -) 10 mg PO Q4H PRN PRN Reason: PAIN SCALE 1-7 Last Admin: 06/08/17 04:47 Dose: 10 mg Potassium Chloride (K-Dur -) 40 meq PO DAILY [facility] Stop: 06/09/17 10:29 Last Admin: 06/07/17 10:21 Dose: 40 meq Zolpidem Tartrate (Ambien -) 10 mg PO HS PRN PRN Reason: INSOMNIA Last Admin: 06/07/17 21:50 Dose: 10 mg - Objective Vital Signs: Vital Signs Temperature 98.7 F 06/08/17 05:02 Pulse Rate 114 H 06/08/17 05:02 Respiratory Rate 21 06/08/17 05:02 Blood Pressure 127/77 06/08/17 05:02 O2 Sat by Pulse Oximetry (%) 96 06/07/17 21:00 Constitutional: Yes: Well Nourished, No Distress Musculoskeletal: Yes: Other (dressing removed. scant serosangonous drainage along medial exfix site. wound vac removed. No accumulation in the vac. Incisions healing nicely without sign of infection. Mild edema RLE. Compartments soft. NVID.) Labs: CBC, BMP 06/07/17 16:27 06/07/17 16:27 INR, PTT INR 1.09 (0.82-1.09) 06/01/17 10:34 Assessment/Plan POD #4 Right Tibal ORIF, removal of exfix -Drain removed, no fluid accumulation in vac. -OOB, PT NWB -Pain control -DVT prophylaxis
[2017-06-08] MEDS ORDERED: PT OWN MED DRAWER 7, Y5N ONE ×2 (09:35→21:30)
[2017-06-08] MEDS: POTASSIUM CHLORIDE TABS 20 MEQ TABLET.ER (FP) PO SCH (09:36)
[2017-06-08] MEDS: MULTIVITAMINS (DAILY MVI) TABLET (FP) PO SCH (09:37)
[2017-06-08] MEDS: ENOXAPARIN NA (PORCINE) 30 MG/0.3 ML DISP.SYRIN SQ SCH ×2 (09:37→22:01)
[2017-06-08] MEDS: CITALOPRAM HYDROBROMIDE 10 MG TABLET (FP) PO SCH (09:37)
[2017-06-08] MEDS: CALCIUM 500MG/VIT-D 200 UNITS COMBO TABLET (FP) PO SCH ×2 (09:37→22:01)
--- NOTE | 2017-06-08 19:03 | PN ---
Teaching Attending Note Name of Resident: Leon Hardin ATTENDING PHYSICIAN STATEMENT I saw and evaluated the patient. I reviewed the resident's note and discussed the case with the resident. I agree with the resident's findings and plan as documented. SUBJECTIVE: No fever or chills. pain is well controlled on pain meds OBJECTIVE: NAD ,AAOx3 . CV: RRR, no MRG Lungs : CTAB Abd: soft, NT, ND , NL BS Ext: with a dressing and BAM wraps over R leg . DP 2+ . no edema or erythema on . ASSESSMENT AND PLAN: 61 y/o lady with h/o Anxiety , depression , panic attacks , and other medical problems who presented with a fall resulting in R tibial Fx 1- R tibial Fx: s/p external fixation then IM nailing -wound vac d/c'd - off abx - c dilaudid, cont percocet and fentanyl patch. 2- Severe anxity disorder: - dc xanax and cont celexa 3- Episode of shaking: need f/u with neuro as out pt and also psych. ready medically for dc , but for safe dc will need to arrange for VNS And commode . she declines rehab placement which was recommended to her . she understands the risk for fall and injury
--- NOTE | 2017-06-08 19:14 | PN ---
Physical Exam: SUBJECTIVE: Patient seen and examined. No acute events overnight. Pt endorses 9/10 pain in right leg, denies all other symptoms. OBJECTIVE: Vital Signs Period Temp Pulse Resp BP Sys/Gruber Pulse Ox Last 24 Hr 97.3 F-98.7 F 70-114 18-21 127-157/66-77 96 GENERAL: middle-aged female, awake, alert, and fully oriented, in no acute distress. HEENT: NC, AT, EOMI NECK: Trachea midline, full range of motion, supple. LUNGS: Breath sounds equal, clear to auscultation bilaterally, no wheezes, no crackles, no accessory muscle use. HEART: Regular rate and rhythm, S1, S2 without murmur, rub or gallop. ABDOMEN: Soft, nontender, nondistended, normoactive bowel sounds, no guarding, no rebound, no hepatosplenomegaly, no masses. EXTREMITIES: right leg bandaged with wound vac NEUROLOGICAL: Cranial nerves II through XII grossly intact. Normal speech, gait not observed. Active Medications Generic Name Dose Route Start Last Admin Trade Name Freq PRN Reason Stop Dose Admin Acetaminophen 650 mg 06/04/17 17:50 06/08/17 16:49 Tylenol - PO 650 mg Q4H PRN Administration FEVER OR PAIN Acetaminophen 325 mg 06/06/17 11:16 06/06/17 21:59 Tylenol - PO 06/09/17 11:15 325 mg Q4H PRN Administration PAIN SCALE 1-7 Calcium Carbonate/Cholecalciferol 1 tab 06/04/17 22:00 06/08/17 09:37 Os-Romel 500+D - PO 1 tab BID BRANDON Administration Citalopram Hydrobromide 10 mg 06/05/17 10:00 06/08/17 09:37 Celexa - PO 10 mg DAILY BRANDON Administration Enoxaparin Sodium 30 mg 06/05/17 10:00 06/08/17 09:37 Lovenox - SQ 30 mg BID BRANDON Administration Fentanyl 1 patch 06/06/17 11:45 06/06/17 12:20 Duragesic 75mcg Patch - TD 1 patch Q72H BRANDON Administration Ferrous Sulfate 325 mg 06/05/17 08:00 06/08/17 17:25 Feosol - PO 325 mg BIDWM BRANDON Administration Melatonin 3 mg 06/04/17 22:00 06/07/17 21:50 Melatonin PO Not Given HS BRANDON Miscellaneous 1 each 06/06/17 09:09 Duragesic Patch Waste TD PRN PRN PAIN Multivitamins/Minerals/Vitamin C 1 tab 06/05/17 10:00 06/08/17 09:37 Tab-A-Vit - PO 1 tab DAILY BRANDON Administration Ondansetron HCl 4 mg 06/04/17 17:50 Zofran Injection IVPUSH Q6H PRN NAUSEA AND/OR VOMITING Oxycodone HCl 10 mg 06/06/17 11:16 06/08/17 16:49 Roxicodone - PO 10 mg Q4H PRN Administration PAIN SCALE 1-7 Potassium Chloride 40 meq 06/05/17 10:30 06/08/17 09:36 K-Dur - PO 06/09/17 10:29 40 meq DAILY BRANDON Administration Zolpidem Tartrate 10 mg 06/05/17 08:19 06/07/17 21:50 Ambien - PO 10 mg HS PRN Administration INSOMNIA ASSESSMENT/PLAN: 61F w/ hx of anxiety, depression, panic attacks, and other medical problems who presented with a fall resulting in R tibial Fx. #R tibial Fx -s/p external fixation then IM nailing -wound vac d/c'd on 06/08 - off of abx - d/c'd dilaudid -cont percocet and fentanyl patch, pt made aware #Severe anxiety disorder - d/c xanax, pt made aware - cont celexa #Episode of shaking -need f/u with neuro as outpt and also psych #FEN/ppx -no fluids -no electrolyte labs today -regular diet -no GI ppx -lovenox 30 BID #Dispo - medically ready for d/c. Pending VNS and commode and walker. Spoke with HARIKA Umanzor who is in process of setting up VNS with [facility]. (will call Susan at [phone] to discuss) - Pt declines rehab placement which was recommended to her. she understands the risk for fall and injury -Leon Hardin MD PGY1 Visit type - Emergency Visit Emergency Visit: Yes ED Registration Date: 05/31/17 Care time: The patient presented to the Emergency Department on the above date and was hospitalized for further evaluation of their emergent condition. - New Patient This patient is new to me today: Yes Date on this admission: 06/09/17 - Critical Care Critical Care patient: No
[2017-06-08] MEDS: MELATONIN 1 MG TABLET PO SCH (22:00)
[2017-06-08] MEDS: ZOLPIDEM TARTRATE 5 MG TABLET PO PRN (22:01)
[2017-06-09] MEDS: ACETAMINOPHEN 325 MG TABLET (FP) PO PRN ×4 (05:00→20:53)
[2017-06-09] MEDS: oxyCODONE HCL 5 MG TABLET PO PRN ×4 (05:00→20:53)
--- NOTE | 2017-06-09 09:23 | PN ---
Progress Note, Physician History of Present Illness: feels well. sitting up in bed. pain controlled. - Current Medication List Current Medications: Active Medications Acetaminophen (Tylenol -) 650 mg PO Q4H PRN PRN Reason: FEVER OR PAIN Last Admin: 06/09/17 08:15 Dose: 650 mg Acetaminophen (Tylenol -) 325 mg PO Q4H PRN PRN Reason: PAIN SCALE 1-7 Stop: 06/09/17 11:15 Last Admin: 06/06/17 21:59 Dose: 325 mg Calcium Carbonate/Cholecalciferol (Os-Romel 500+D -) 1 tab PO BID [facility] Last Admin: 06/08/17 22:01 Dose: 1 tab Citalopram Hydrobromide (Celexa -) 10 mg PO DAILY [facility] Last Admin: 06/08/17 09:37 Dose: 10 mg Enoxaparin Sodium (Lovenox -) 30 mg SQ BID [facility] Last Admin: 06/08/17 22:01 Dose: 30 mg Fentanyl (Duragesic 75mcg Patch -) 1 patch TD Q72H [facility] Last Admin: 06/06/17 12:20 Dose: 1 patch Ferrous Sulfate (Feosol -) 325 mg PO BIDWM [facility] Last Admin: 06/08/17 17:25 Dose: 325 mg Melatonin (Melatonin) 3 mg PO HS [facility] Last Admin: 06/08/17 22:00 Dose: Not Given Miscellaneous (Duragesic Patch Waste) 1 each TD PRN PRN PRN Reason: PAIN Multivitamins/Minerals/Vitamin C (Tab-A-Vit -) 1 tab PO DAILY [facility] Last Admin: 06/08/17 09:37 Dose: 1 tab Ondansetron HCl (Zofran Injection) 4 mg IVPUSH Q6H PRN PRN Reason: NAUSEA AND/OR VOMITING Oxycodone HCl (Roxicodone -) 10 mg PO Q4H PRN PRN Reason: PAIN SCALE 1-7 Last Admin: 06/09/17 08:14 Dose: 10 mg Potassium Chloride (K-Dur -) 40 meq PO DAILY [facility] Stop: 06/09/17 10:29 Last Admin: 06/08/17 09:36 Dose: 40 meq Zolpidem Tartrate (Ambien -) 10 mg PO HS PRN PRN Reason: INSOMNIA Last Admin: 06/08/17 22:01 Dose: 10 mg - Objective Vital Signs: Vital Signs Temperature 98.1 F 06/09/17 06:09 Pulse Rate 69 06/09/17 06:09 Respiratory Rate 19 06/09/17 06:09 Blood Pressure 143/75 06/09/17 06:09 O2 Sat by Pulse Oximetry (%) 96 06/07/17 21:00 Constitutional: Yes: Well Nourished, No Distress Musculoskeletal: Yes: Other (Dressing CDI except for mild serous drainage at medial calcaneous pin site. Compartments soft. No erythema or active drainage from wounds. NVID.) Labs: CBC, BMP 06/07/17 16:27 06/07/17 16:27 INR, PTT INR 1.09 (0.82-1.09) 06/01/17 10:34 Assessment/Plan #1 POD #5 s/p tibia ORIF -Off ABX -Pain control -OOB, PT NWB -Dispo planning, follow up with Dr. Zuñiga in office next week
[2017-06-09] MEDS ORDERED: PT OWN MED DRAWER 7, Y5N ONE (09:48)
[2017-06-09] MEDS: CITALOPRAM HYDROBROMIDE 10 MG TABLET (FP) PO SCH (10:23)
[2017-06-09] MEDS: POTASSIUM CHLORIDE TABS 20 MEQ TABLET.ER (FP) PO SCH (10:23)
[2017-06-09] MEDS: FERROUS SO4 325 MG TABLET (FP) PO SCH ×2 (10:23→17:40)
[2017-06-09] MEDS: MULTIVITAMINS (DAILY MVI) TABLET (FP) PO SCH (10:23)
[2017-06-09] MEDS: CALCIUM 500MG/VIT-D 200 UNITS COMBO TABLET (FP) PO SCH ×2 (10:23→22:35)
[2017-06-09] MEDS: ENOXAPARIN NA (PORCINE) 30 MG/0.3 ML DISP.SYRIN SQ SCH ×2 (10:26→22:35)
[2017-06-09] MEDS: fentaNYL 75mcg/hr PATCH.TD72 TD SCH (11:08)
[2017-06-09] MEDS: FENTANYL PATCH WASTE TD PRN (11:13)
--- NOTE | 2017-06-09 16:15 | PN ---
Physical Exam: SUBJECTIVE: Patient seen and examined. No acute events overnight. Pt reports that pain is 5/10, improved from yesterday. She denies other complaints. She states that she does not want to go home anymore, and would rather go to a SNF, ideally [facility]. OBJECTIVE: Vital Signs Period Temp Pulse Resp BP Sys/Gruber Pulse Ox Last 24 Hr 98.1 F-98.7 F 69-70 18-20 143-157/75-81 GENERAL: middle-aged female, awake, alert, and fully oriented, in no acute distress. HEENT: NC, AT, EOMI NECK: Trachea midline, full range of motion, supple. LUNGS: Breath sounds equal, clear to auscultation bilaterally, no wheezes, no crackles, no accessory muscle use. HEART: Regular rate and rhythm, S1, S2 without murmur, rub or gallop. ABDOMEN: Soft, nontender, nondistended, normoactive bowel sounds, no guarding, no rebound, no hepatosplenomegaly, no masses. EXTREMITIES: right leg bandaged, tender to palpation NEUROLOGICAL: Cranial nerves II through XII grossly intact. Normal speech, gait not observed. Active Medications Generic Name Dose Route Start Last Admin Trade Name Freq PRN Reason Stop Dose Admin Acetaminophen 650 mg 06/04/17 17:50 06/09/17 15:34 Tylenol - PO 325 mg Q4H PRN Administration FEVER OR PAIN Calcium Carbonate/Cholecalciferol 1 tab 06/04/17 22:00 06/09/17 10:23 Os-Romel 500+D - PO 1 tab BID BRANDON Administration Citalopram Hydrobromide 10 mg 06/05/17 10:00 06/09/17 10:23 Celexa - PO 10 mg DAILY BRANDON Administration Enoxaparin Sodium 30 mg 06/05/17 10:00 06/09/17 10:26 Lovenox - SQ 30 mg BID BRANDON Administration Fentanyl 1 patch 06/06/17 11:45 06/09/17 11:08 Duragesic 75mcg Patch - TD 1 patch Q72H BRANDON Administration Ferrous Sulfate 325 mg 06/05/17 08:00 06/09/17 10:23 Feosol - PO 325 mg BIDWM BRANDON Administration Melatonin 3 mg 06/04/17 22:00 06/08/17 22:00 Melatonin PO Not Given HS BRANDON Miscellaneous 1 each 06/06/17 09:09 06/09/17 11:13 Duragesic Patch Waste TD 1 each PRN PRN Administration PAIN Multivitamins/Minerals/Vitamin C 1 tab 06/05/17 10:00 06/09/17 10:23 Tab-A-Vit - PO 1 tab DAILY BRANDON Administration Ondansetron HCl 4 mg 06/04/17 17:50 Zofran Injection IVPUSH Q6H PRN NAUSEA AND/OR VOMITING Oxycodone HCl 10 mg 06/09/17 14:54 06/09/17 15:33 Roxicodone - PO 10 mg Q4H PRN Administration PAIN ASSESSMENT/PLAN: 61F w/ hx of anxiety, depression, panic attacks, and other medical problems who presented with a fall resulting in R tibial Fx. #R tibial Fx -s/p external fixation then IM nailing -wound vac d/c'd on 06/08 - off of abx -cont percocet and fentanyl patch #Severe anxiety disorder - cont celexa #Episode of shaking -need f/u with neuro as outpt and also psych #FEN/ppx -no fluids -no electrolyte labs today -regular diet -no GI ppx -lovenox 30 BID #Dispo - medically ready for d/c. Spoke with HARIKA Umanzor who is waiting to hear back from SNF [facility]. -Leon Hardin MD PGY1 Visit type - Emergency Visit Emergency Visit: Yes ED Registration Date: 05/31/17 Care time: The patient presented to the Emergency Department on the above date and was hospitalized for further evaluation of their emergent condition. - New Patient This patient is new to me today: No - Critical Care Critical Care patient: No
--- NOTE | 2017-06-09 20:00 | PN ---
Teaching Attending Note Name of Resident: Leon Hardin ATTENDING PHYSICIAN STATEMENT I saw and evaluated the patient. I reviewed the resident's note and discussed the case with the resident. I agree with the resident's findings and plan as documented. SUBJECTIVE: no fever or chills, pain is controlled OBJECTIVE: NAD ,AAOx3 . CV: RRR, no MRG Lungs : CTAB Abd: soft, NT, ND , NL BS Ext: with a dressing and BAM wraps over R leg . DP 2+ . no edema or erythema on . ASSESSMENT AND PLAN: 61 y/o lady with h/o Anxiety , depression , panic attacks , and other medical problems who presented with a fall resulting in R tibial Fx 1- R tibial Fx: s/p external fixation then IM nailing - off abx - cont percocet and fentanyl patch. her home meds 2- Severe anxiety disorder: - cont celexa 3- Episode of shaking: need f/u with neuro as out pt and also psych. Ready medically for dc , pending rehab bed availability
[2017-06-09] MEDS: ZOLPIDEM TARTRATE 5 MG TABLET PO PRN (22:35)
[2017-06-09] MEDS: MELATONIN 1 MG TABLET PO SCH (22:36)
[2017-06-10] MEDS: ACETAMINOPHEN 325 MG TABLET (FP) PO PRN ×3 (03:18→16:28)
[2017-06-10] MEDS: oxyCODONE HCL 5 MG TABLET PO PRN ×4 (03:18→20:35)
[2017-06-10] MEDS: FERROUS SO4 325 MG TABLET (FP) PO SCH ×2 (08:05→17:40)
[2017-06-10] MEDS ORDERED: PT OWN MED DRAWER 7, Y5N ONE ×2 (09:43→20:56)
[2017-06-10] MEDS: MULTIVITAMINS (DAILY MVI) TABLET (FP) PO SCH (09:44)
[2017-06-10] MEDS: CALCIUM 500MG/VIT-D 200 UNITS COMBO TABLET (FP) PO SCH ×2 (09:44→21:29)
[2017-06-10] MEDS: CITALOPRAM HYDROBROMIDE 10 MG TABLET (FP) PO SCH (09:44)
[2017-06-10] MEDS: ENOXAPARIN NA (PORCINE) 30 MG/0.3 ML DISP.SYRIN SQ SCH ×2 (09:45→21:30)
--- NOTE | 2017-06-10 11:51 | PN ---
Teaching Attending Note Name of Resident: Leon Hardin ATTENDING PHYSICIAN STATEMENT I saw and evaluated the patient. I reviewed the resident's note and discussed the case with the resident. I agree with the resident's findings and plan as documented. SUBJECTIVE: Patient is feeling better with no acute distress. No shortness of breath. no fever or chills. OBJECTIVE: Vital Signs Temperature 97.9 F 06/10/17 06:02 Pulse Rate 67 06/10/17 06:02 Respiratory Rate 20 06/10/17 06:02 Blood Pressure 95/55 06/10/17 06:02 O2 Sat by Pulse Oximetry (%) 96 06/07/17 21:00 CBCD WBC 9.3 K/mm3 (4.0-10.0) 06/07/17 16:27 RBC 3.21 M/mm3 (3.60-5.2) L 06/07/17 16:27 Hgb 10.0 GM/dL (10.7-15.3) L 06/07/17 16:27 Hct 30.3 % (32.4-45.2) L 06/07/17 16:27 MCV 94.4 fl (80-96) 06/07/17 16:27 MCHC 33.0 g/dl (32.0-36.0) 06/07/17 16:27 RDW 13.6 % (11.6-15.6) 06/07/17 16:27 Plt Count 376 K/MM3 (134-434) 06/07/17 16:27 MPV 9.1 fl (7.5-11.1) 06/07/17 16:27 CMP Sodium 145 mmol/L (136-145) 06/07/17 16:27 Potassium 3.8 mmol/L (3.5-5.1) 06/07/17 16:27 Chloride 108 mmol/L (98-107) H 06/07/17 16:27 Carbon Dioxide 29 mmol/L (21-32) 06/07/17 16:27 Anion Gap 8 (8-16) 06/07/17 16:27 BUN 18 mg/dL (7-18) D 06/07/17 16:27 Creatinine 0.7 mg/dL (0.55-1.02) 06/07/17 16:27 Creat Clearance w eGFR > 60 (>60) 06/07/17 16:27 Random Glucose 86 mg/dL (74-106) 06/07/17 16:27 Calcium 8.2 mg/dL (8.5-10.1) L 06/07/17 16:27 Total Bilirubin 0.2 mg/dL (0.2-1.0) D 06/07/17 16:27 AST 7 U/L (15-37) L 06/07/17 16:27 ALT 9 U/L (12-78) L D 06/07/17 16:27 Alkaline Phosphatase 61 U/L (45-117) 06/07/17 16:27 Total Protein 5.3 g/dl (6.4-8.2) L 06/07/17 16:27 Albumin 2.6 g/dl (3.4-5.0) L 06/07/17 16:27 CARDIAC ENZYMES Creatine Kinase 281 IU/L (26-192) H 05/31/17 17:10 Troponin I < 0.02 ng/ml (0.00-0.05) 05/31/17 17:10 Current Medications Generic Name Dose Route Start Last Admin Trade Name Freq PRN Reason Stop Dose Admin Acetaminophen 650 mg 06/04/17 17:50 06/10/17 09:44 Tylenol - PO 650 mg Q4H PRN Administration FEVER OR PAIN Calcium Carbonate/Cholecalciferol 1 tab 06/04/17 22:00 06/10/17 09:44 Os-Romel 500+D - PO 1 tab BID BRANDON Administration Citalopram Hydrobromide 10 mg 06/05/17 10:00 06/10/17 09:44 Celexa - PO 10 mg DAILY BRANDON Administration Enoxaparin Sodium 30 mg 06/05/17 10:00 06/10/17 09:45 Lovenox - SQ 30 mg BID BRANDON Administration Fentanyl 1 patch 06/06/17 11:45 06/09/17 11:08 Duragesic 75mcg Patch - TD 1 patch Q72H BRANDON Administration Ferrous Sulfate 325 mg 06/05/17 08:00 06/10/17 08:05 Feosol - PO 325 mg BIDWM BRANDON Administration Melatonin 3 mg 06/04/17 22:00 06/09/17 22:36 Melatonin PO Not Given HS BRANDON Miscellaneous 1 each 06/06/17 09:09 06/09/17 11:13 Duragesic Patch Waste TD 1 each PRN PRN Administration PAIN Multivitamins/Minerals/Vitamin C 1 tab 06/05/17 10:00 06/10/17 09:44 Tab-A-Vit - PO 1 tab DAILY BRANDON Administration Ondansetron HCl 4 mg 06/04/17 17:50 Zofran Injection IVPUSH Q6H PRN NAUSEA AND/OR VOMITING Oxycodone HCl 10 mg 06/09/17 14:54 06/10/17 09:44 Roxicodone - PO 10 mg Q4H PRN Administration PAIN Zolpidem Tartrate 10 mg 06/09/17 22:00 06/09/17 22:35 Ambien - PO 06/10/17 21:59 10 mg HS PRN Administration INSOMNIA Home Medications Medication Instructions Recorded Gabapentin 800 mg PO TID 12/03/14 Carisoprodol [Soma] 0 mg PO DAILY 12/17/16 Citalopram Hydrobromide [Celexa -] 10 mg PO DAILY #14 tablet 06/09/17 FENTANYL 75mcg PATCH [DURAGESIC 75 mcg TD Q72H #2 patch.td72 MDD 75 06/09/17 75mcg PATCH -] Miscellaneous Drug Not In Syst 1 each [place] [place] [Outpatient Lab Test] Miscellaneous Medical Supply 1 each ASDIR [place] [place] [Outpatient Order] Miscellaneous Medical Supply 1 each ASDIR [place] [place] [Outpatient Order] Oxycodone HCl [Roxicodone -] 5 mg PO PRN #30 tablet MDD 30 06/09/17 Walker [Ultra-Light Rollator] 1 each ONCE #1 each 06/09/17 PE: per resident's note ASSESSMENT AND PLAN: Patient is a 61 y/o lady with h/o Anxiety , depression , panic attacks , and other medical problems who presented with a fall resulting in Right tibial Fx # Acute Right tibial Fx: s/p external fixation then IM nailing , off abx now, on Pain meds. continue , percocet and fentanyl patch. her home meds . # Severe anxiety disorder: on celexa continue # Episode of tremor: need f/u with neuro as out pt and also psych. patient medically is ready for dc , pending rehab bed availability.
--- NOTE | 2017-06-10 13:32 | DS ---
Physical Exam: SUBJECTIVE: Patient seen and examined. No acute events overnight. Pt states that leg pain is well controlled. She denies headache, chest pain, SOB, abdominal pain, n/v/d/c, and dysuria. OBJECTIVE: Vital Signs Period Temp Pulse Resp BP Sys/Gruber Pulse Ox Last 24 Hr 97.9 F-99.2 F 67-73 18-20 95-157/55-81 PHYSICAL EXAM GENERAL: middle-aged female, awake, alert, and fully oriented, in no acute distress. HEENT: NC, AT, EOMI NECK: Trachea midline, full range of motion, supple. LUNGS: Breath sounds equal, clear to auscultation bilaterally, no wheezes, no crackles, no accessory muscle use. HEART: Regular rate and rhythm, S1, S2 without murmur, rub or gallop. ABDOMEN: Soft, nontender, nondistended, normoactive bowel sounds, no guarding, no rebound, no hepatosplenomegaly, no masses. EXTREMITIES: right leg bandaged, tender to palpation NEUROLOGICAL: Cranial nerves II through XII grossly intact. Normal speech, gait not observed. LABS Laboratory Tests 05/31/17 05/31/17 05/31/17 17:10 17:10 17:10 WBC 12.9 H D RBC 4.55 Hgb 14.2 D Hct 42.6 D MCV 93.7 MCH 31.2 MCHC 33.3 RDW 13.8 Plt Count 309 MPV 9.2 D Neutrophils % Lymphocytes % Monocytes % Eosinophils % Basophils % Manual Slide Review Platelet Comment ESR PT with INR 11.80 INR 1.04 Sodium 139 Potassium 4.6 Chloride 104 Carbon Dioxide 26 Anion Gap 9 BUN 17 D Creatinine 0.9 Creat Clearance w eGFR > 60 Random Glucose 106 D Calcium 9.4 Phosphorus Magnesium Total Bilirubin 0.3 D AST 22 D ALT 16 D Alkaline Phosphatase 92 D Creatine Kinase Creatine Kinase Index CK-MB (CK-2) Troponin I C-Reactive Protein Total Protein 7.2 D Albumin 4.1 D Vitamin B12 Serum Folate TSH Blood Type Antibody Screen 05/31/17 05/31/17 06/01/17 17:10 17:10 10:34 WBC 8.7 D RBC 3.67 Hgb 11.4 D Hct 35.0 D MCV 95.3 MCH 31.1 MCHC 32.7 RDW 13.8 Plt Count 254 MPV 9.1 Neutrophils % 83.5 H D Lymphocytes % 11.8 D Monocytes % 3.1 L Eosinophils % 0.4 Basophils % 1.2 Manual Slide Review Platelet Comment ESR PT with INR INR Sodium Potassium Chloride Carbon Dioxide Anion Gap BUN Creatinine Creat Clearance w eGFR Random Glucose Calcium Phosphorus Magnesium Total Bilirubin AST ALT Alkaline Phosphatase Creatine Kinase 281 H Creatine Kinase Index 0.4 CK-MB (CK-2) 1.316 Troponin I < 0.02 C-Reactive Protein Total Protein Albumin Vitamin B12 Serum Folate TSH Blood Type O NEGATIVE Antibody Screen Negative 06/01/17 06/01/17 06/01/17 10:34 10:34 10:34 WBC RBC Hgb Hct MCV MCH MCHC RDW Plt Count MPV Neutrophils % Lymphocytes % Monocytes % Eosinophils % Basophils % Manual Slide Review Platelet Comment ESR PT with INR 12.30 H INR 1.09 Sodium 142 Potassium 4.3 Chloride 112 H Carbon Dioxide 25 Anion Gap 5 L BUN 9 D Creatinine 0.7 D Creat Clearance w eGFR > 60 Random Glucose 102 Calcium 7.5 L D Phosphorus 2.4 L Magnesium 1.6 L D Total Bilirubin 0.4 D AST 14 L D ALT 9 L D Alkaline Phosphatase 70 D Creatine Kinase Creatine Kinase Index CK-MB (CK-2) Troponin I C-Reactive Protein Total Protein 5.7 L D Albumin 3.0 L D Vitamin B12 668 Serum Folate 15 TSH 0.59 Blood Type Antibody Screen 06/02/17 06/02/17 06/03/17 07:45 07:45 06:30 WBC 12.2 H D 7.8 D RBC 3.46 L 3.47 L Hgb 10.6 L 10.8 Hct 32.7 32.6 MCV 94.5 94.2 MCH 30.6 31.2 MCHC 32.4 33.1 RDW 13.7 13.4 Plt Count 261 273 MPV 9.6 9.5 Neutrophils % Lymphocytes % Monocytes % Eosinophils % Basophils % Manual Slide Review Platelet Comment ESR PT with INR INR Sodium 142 Potassium 4.0 Chloride 111 H Carbon Dioxide 23 Anion Gap 8 BUN 8 Creatinine 0.7 Creat Clearance w eGFR Random Glucose 99 Calcium 8.3 L Phosphorus 3.5 D Magnesium 1.7 L Total Bilirubin AST ALT Alkaline Phosphatase Creatine Kinase Creatine Kinase Index CK-MB (CK-2) Troponin I C-Reactive Protein Total Protein Albumin Vitamin B12 Serum Folate TSH Blood Type Antibody Screen 06/03/17 06/04/17 06/04/17 06:30 07:15 07:15 WBC 7.5 RBC 3.81 Hgb 11.5 Hct 35.7 MCV 93.7 MCH 30.3 MCHC 32.3 RDW 13.4 Plt Count 309 MPV 9.4 Neutrophils % Lymphocytes % Monocytes % Eosinophils % Basophils % Manual Slide Review Platelet Comment ESR PT with INR INR Sodium 144 144 Potassium 3.8 3.3 L Chloride 111 H 106 Carbon Dioxide 24 29 D Anion Gap 9 9 BUN 8 6 L D Creatinine 0.7 0.7 Creat Clearance w eGFR Random Glucose 83 84 Calcium 8.3 L 8.6 Phosphorus 3.6 3.1 Magnesium 1.7 L 1.8 Total Bilirubin AST ALT Alkaline Phosphatase Creatine Kinase Creatine Kinase Index CK-MB (CK-2) Troponin I C-Reactive Protein Total Protein Albumin Vitamin B12 Serum Folate TSH Blood Type Antibody Screen 06/05/17 06/05/17 06/05/17 07:00 07:00 18:15 WBC 9.9 D RBC 3.19 L Hgb 9.9 L D Hct 29.7 L D MCV 92.8 MCH 31.0 MCHC 33.4 RDW 13.3 Plt Count 325 MPV 9.2 Neutrophils % Lymphocytes % Monocytes % Eosinophils % Basophils % Manual Slide Review Platelet Comment ESR 17 PT with INR INR Sodium Potassium Chloride Carbon Dioxide Anion Gap BUN Creatinine Creat Clearance w eGFR Random Glucose Calcium Phosphorus Magnesium Total Bilirubin AST ALT Alkaline Phosphatase Creatine Kinase Creatine Kinase Index CK-MB (CK-2) Troponin I C-Reactive Protein 1.5 H Total Protein Albumin Vitamin B12 Serum Folate TSH Blood Type Antibody Screen 06/05/17 06/06/17 06/06/17 18:15 16:58 17:45 WBC 10.0 RBC 3.35 L Hgb 10.6 L Hct 31.3 L MCV 93.6 MCH 31.7 MCHC 33.9 RDW 13.3 Plt Count 363 MPV 8.9 Neutrophils % Lymphocytes % Monocytes % Eosinophils % Basophils % Manual Slide Review Platelet Comment ESR PT with INR INR Sodium 143 143 Potassium 3.7 3.8 Chloride 108 H 107 Carbon Dioxide 27 29 Anion Gap 8 7 L BUN 8 D 11 D Creatinine 0.8 0.6 D Creat Clearance w eGFR > 60 > 60 Random Glucose 127 H D 102 Calcium 8.0 L 8.1 L Phosphorus Magnesium Total Bilirubin 0.3 D 0.3 AST 5 L D 6 L ALT 6 L D 7 L Alkaline Phosphatase 66 70 Creatine Kinase Creatine Kinase Index CK-MB (CK-2) Troponin I C-Reactive Protein Total Protein 5.2 L 5.7 L Albumin 2.7 L 2.9 L Vitamin B12 Serum Folate TSH Blood Type Antibody Screen 06/07/17 06/07/17 06/07/17 08:00 16:27 16:27 WBC 8.8 9.3 RBC 3.33 L 3.21 L Hgb 10.3 L 10.0 L Hct 31.4 L 30.3 L MCV 94.4 94.4 MCH 30.8 31.2 MCHC 32.7 33.0 RDW 13.4 13.6 Plt Count 353 376 MPV 8.9 9.1 Neutrophils % Lymphocytes % Monocytes % Eosinophils % Basophils % Manual Slide Review Platelet Comment ESR PT with INR INR Sodium 145 Potassium 3.8 Chloride 108 H Carbon Dioxide 29 Anion Gap 8 BUN 18 D Creatinine 0.7 Creat Clearance w eGFR > 60 Random Glucose 86 Calcium 8.2 L Phosphorus Magnesium Total Bilirubin 0.2 D AST 7 L ALT 9 L D Alkaline Phosphatase 61 Creatine Kinase Creatine Kinase Index CK-MB (CK-2) Troponin I C-Reactive Protein Total Protein 5.3 L Albumin 2.6 L Vitamin B12 Serum Folate TSH Blood Type Antibody Screen Head CT: negative HOSPITAL COURSE: Date of Admission:05/31/17 Date of Discharge: 06/10/17 61F w/ hx of anxiety, depression, panic attacks, and other medical problems who presented after a shaking episode and fall resulting in R tibial Fx. Pt underwent external fixation followed by intramedullary nailing. She received a wound vac, completed a course of antibiotics, and her pain was controlled. Pt was started on citalopram for her anxiety with good response. Per physical therapy, pt able to walk 85 feet with rolling walker without complaint. Today, pt is hemodynamically stable, without subjective complaints, and she is stable for discharge home with VNS to follow with her PCP, ortho, neuro, and psych. -Leon Hardin MD PGY1 Minutes to complete discharge: 39 Discharge Summary Reason For Visit: OPEN FRACTURE OF TIBA Current Active Problems Open displaced comminuted fracture of shaft of right tibia (Acute) Condition: Stable - Instructions Diet, Activity, Other Instructions: You presented to the hospital after a fall and were found to have a right tibial fracture. You underwent an external fixation followed by an intramedullary nail procedure. You completed a course of antibiotics, and your pain was controlled. Medications: You were started on citalopram 10mg once a day, so please continue taking that for your anxiety. Follow-ups: 1. Follow up with your PCP within one week. If you don't have one, we have referred you to Dr. Duran. 2. Please follow up with orthopedic surgeon, Dr. Zuñiga, within one week. 3. Please follow up with a neurologist, Dr. Smith, regarding your episodes of shaking. 4. Please follow up with a psychiatrist, Dr. Garza, regarding your anxiety. If you develop any chest pain, shortness of breath, or other severe symptoms, return to the ED. Referrals: Shamar Duran MD [Staff Physician] - 1 Week Ramsey Garza MD [Staff Physician] - Juan Smith MD [Staff Physician] - Jethro Zuñiga MD [Staff Physician] - 1 Week Disposition: CUSTODIAL FACILITY - Home Medications Comprehensive Discharge Medication List: Ambulatory Orders Gabapentin 800 mg PO TID 12/03/14 Carisoprodol [Soma] 0 mg PO DAILY 12/17/16 Citalopram Hydrobromide [Celexa -] 10 mg PO DAILY #14 tablet 06/09/17 FENTANYL 75mcg PATCH [DURAGESIC 75mcg PATCH -] 75 mcg TD Q72H #2 patch.td72 MDD 75 06/09/17 Miscellaneous Drug Not In Syst [Outpatient Lab Test] 1 each ASDIR #1 [facility] [place] Miscellaneous Medical Supply [Outpatient Order] 1 each ASDIR #1 [facility] [place] Miscellaneous Medical Supply [Outpatient Order] 1 each ASDIR #1 [facility] [place] Oxycodone HCl [Roxicodone -] 5 mg PO PRN #30 tablet MDD 30 06/09/17 Walker [Ultra-Light Rollator] 1 each ONCE #1 each 06/09/17 This patient is new to me today: No Emergency Visit: Yes ED Registration Date: 05/31/17 Care time: The patient presented to the Emergency Department on the above date and was hospitalized for further evaluation of their emergent condition. Critical Care patient: No - Discharge Referral Referred to [facility] Med [facility].: No
--- NOTE | 2017-06-10 14:46 | PN ---
Physical Exam: SUBJECTIVE: Patient seen and examined No acute events overnight. Pt states that leg pain is well controlled. She denies headache, chest pain, SOB, abdominal pain, n/v/d/c, and dysuria. OBJECTIVE: Vital Signs Period Temp Pulse Resp BP Sys/Gruber Pulse Ox Last 24 Hr 97.9 F-99.2 F 58-73 17-20 95-142/55-70 GENERAL: middle-aged female, awake, alert, and fully oriented, in no acute distress. HEENT: NC, AT, EOMI NECK: Trachea midline, full range of motion, supple. LUNGS: Breath sounds equal, clear to auscultation bilaterally, no wheezes, no crackles, no accessory muscle use. HEART: Regular rate and rhythm, S1, S2 without murmur, rub or gallop. ABDOMEN: Soft, nontender, nondistended, normoactive bowel sounds, no guarding, no rebound, no hepatosplenomegaly, no masses. EXTREMITIES: right leg bandaged, tender to palpation NEUROLOGICAL: Cranial nerves II through XII grossly intact. Normal speech, gait not observed. Active Medications Generic Name Dose Route Start Last Admin Trade Name Freq PRN Reason Stop Dose Admin Acetaminophen 650 mg 06/04/17 17:50 06/10/17 09:44 Tylenol - PO 650 mg Q4H PRN Administration FEVER OR PAIN Calcium Carbonate/Cholecalciferol 1 tab 06/04/17 22:00 06/10/17 09:44 Os-Romel 500+D - PO 1 tab BID BRANDON Administration Citalopram Hydrobromide 10 mg 06/05/17 10:00 06/10/17 09:44 Celexa - PO 10 mg DAILY BRANDON Administration Enoxaparin Sodium 30 mg 06/05/17 10:00 06/10/17 09:45 Lovenox - SQ 30 mg BID BRANDON Administration Fentanyl 1 patch 06/06/17 11:45 06/09/17 11:08 Duragesic 75mcg Patch - TD 1 patch Q72H BRANDON Administration Ferrous Sulfate 325 mg 06/05/17 08:00 06/10/17 08:05 Feosol - PO 325 mg BIDWM BRANDON Administration Melatonin 3 mg 06/04/17 22:00 06/09/17 22:36 Melatonin PO Not Given HS BRANDON Miscellaneous 1 each 06/06/17 09:09 06/09/17 11:13 Duragesic Patch Waste TD 1 each PRN PRN Administration PAIN Multivitamins/Minerals/Vitamin C 1 tab 06/05/17 10:00 06/10/17 09:44 Tab-A-Vit - PO 1 tab DAILY BRANDON Administration Ondansetron HCl 4 mg 06/04/17 17:50 Zofran Injection IVPUSH Q6H PRN NAUSEA AND/OR VOMITING Oxycodone HCl 10 mg 06/09/17 14:54 06/10/17 09:44 Roxicodone - PO 10 mg Q4H PRN Administration PAIN Zolpidem Tartrate 10 mg 06/09/17 22:00 06/09/17 22:35 Ambien - PO 06/10/17 21:59 10 mg HS PRN Administration INSOMNIA ASSESSMENT/PLAN: 61F w/ hx of anxiety, depression, panic attacks, and other medical problems who presented with a fall resulting in R tibial Fx. #R tibial Fx -s/p external fixation then IM nailing -wound vac d/c'd on 06/08, off of abx -cont percocet and fentanyl patch #Severe anxiety disorder - cont celexa #Episode of shaking -need f/u with neuro as outpt and also psych #FEN/ppx -no fluids -no electrolyte labs today -regular diet -no GI ppx -lovenox 30 BID #Dispo - medically ready for d/c. not safe for discharge home per APS. Awaiting SNF or other options. -Leon Hardin MD PGY1 Visit type - Emergency Visit Emergency Visit: Yes ED Registration Date: 05/31/17 Care time: The patient presented to the Emergency Department on the above date and was hospitalized for further evaluation of their emergent condition. - New Patient This patient is new to me today: No - Critical Care Critical Care patient: No
[2017-06-10] MEDS: MELATONIN 1 MG TABLET PO SCH (21:30)
[2017-06-10] MEDS: ZOLPIDEM TARTRATE 5 MG TABLET PO PRN (21:31)
[2017-06-11] MEDS: oxyCODONE HCL 5 MG TABLET PO PRN ×4 (05:37→23:45)
[2017-06-11] MEDS: ACETAMINOPHEN 325 MG TABLET (FP) PO PRN ×4 (05:39→23:45)
[2017-06-11] MEDS ORDERED: PT OWN MED DRAWER 7, Y5N ONE (09:35)
[2017-06-11] MEDS: FERROUS SO4 325 MG TABLET (FP) PO SCH ×2 (09:38→17:20)
[2017-06-11] MEDS: CALCIUM 500MG/VIT-D 200 UNITS COMBO TABLET (FP) PO SCH ×2 (09:38→22:48)
[2017-06-11] MEDS: MULTIVITAMINS (DAILY MVI) TABLET (FP) PO SCH (09:38)
[2017-06-11] MEDS: CITALOPRAM HYDROBROMIDE 10 MG TABLET (FP) PO SCH (09:38)
[2017-06-11] MEDS: ENOXAPARIN NA (PORCINE) 30 MG/0.3 ML DISP.SYRIN SQ SCH ×2 (09:38→22:48)
[2017-06-11] MEDS ORDERED: ALPRAZolam 0.25 MG TABLET PO PRN (10:00)
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
--- NOTE | 2017-06-11 19:51 | PN ---
Mental Health Exam - Mental Status Exam Alert and Oriented to: Time, Place, Person Cognitive Function: Grossly Intact Patient Appearance: Unkempt (part of nails painted, some not> ) Mood: Angry (with Ms reyes, patient relations. ), Suspicious, Anxious Affect: Inappropriate, Labile (tearful, then pressured speech, unstable mood. ) Patient Behavior: Crying, Suspicious, Talkative (No stop for 10 minutes!), Resitive to Care (refused discharge plan put in place. denies ), Cooperative Speech Pattern: Clear, Perseverating, Tangential Voice Loudness: Mildly Soft/Quiet Thought Process: Circumstantial, Flight of Ideas, Disorganized Thought Disorder: Bizarre Hallucinations: Denies Suicidal Ideation: Denies Homicidal Ideation: Denies Insight/Judgement: Fair (Client has capacity for judgement but insight is lacking due to her labile, unstable internal thought. )
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
[2017-06-11] MEDS ORDERED: ZOLPIDEM TARTRATE 5 MG TABLET PO PRN (22:36)
--- NOTE | 2017-06-11 22:44 | PN ---
Teaching Attending Note Name of Resident: Leon Hardin ATTENDING PHYSICIAN STATEMENT I saw and evaluated the patient. I reviewed the resident's note and discussed the case with the resident. I agree with the resident's findings and plan as documented. SUBJECTIVE: Patient is feeling better with no acute distress, getting PT in house. No fever or chills, no shortness of breath OBJECTIVE: Vital Signs Temperature 98.0 F 06/11/17 13:58 Pulse Rate 64 06/11/17 13:58 Respiratory Rate 17 06/11/17 13:58 Blood Pressure 124/66 06/11/17 06:28 O2 Sat by Pulse Oximetry (%) 96 06/07/17 21:00 CBCD WBC 9.3 K/mm3 (4.0-10.0) 06/07/17 16:27 RBC 3.21 M/mm3 (3.60-5.2) L 06/07/17 16:27 Hgb 10.0 GM/dL (10.7-15.3) L 06/07/17 16:27 Hct 30.3 % (32.4-45.2) L 06/07/17 16:27 MCV 94.4 fl (80-96) 06/07/17 16:27 MCHC 33.0 g/dl (32.0-36.0) 06/07/17 16:27 RDW 13.6 % (11.6-15.6) 06/07/17 16:27 Plt Count 376 K/MM3 (134-434) 06/07/17 16:27 MPV 9.1 fl (7.5-11.1) 06/07/17 16:27 CMP Sodium 145 mmol/L (136-145) 06/07/17 16:27 Potassium 3.8 mmol/L (3.5-5.1) 06/07/17 16:27 Chloride 108 mmol/L (98-107) H 06/07/17 16:27 Carbon Dioxide 29 mmol/L (21-32) 06/07/17 16:27 Anion Gap 8 (8-16) 06/07/17 16:27 BUN 18 mg/dL (7-18) D 06/07/17 16:27 Creatinine 0.7 mg/dL (0.55-1.02) 06/07/17 16:27 Creat Clearance w eGFR > 60 (>60) 06/07/17 16:27 Random Glucose 86 mg/dL (74-106) 06/07/17 16:27 Calcium 8.2 mg/dL (8.5-10.1) L 06/07/17 16:27 Total Bilirubin 0.2 mg/dL (0.2-1.0) D 06/07/17 16:27 AST 7 U/L (15-37) L 06/07/17 16:27 ALT 9 U/L (12-78) L D 06/07/17 16:27 Alkaline Phosphatase 61 U/L (45-117) 06/07/17 16:27 Total Protein 5.3 g/dl (6.4-8.2) L 06/07/17 16:27 Albumin 2.6 g/dl (3.4-5.0) L 06/07/17 16:27 CARDIAC ENZYMES Creatine Kinase 281 IU/L (26-192) H 05/31/17 17:10 Troponin I < 0.02 ng/ml (0.00-0.05) 05/31/17 17:10 Current Medications Generic Name Dose Route Start Last Admin Trade Name Freq PRN Reason Stop Dose Admin Acetaminophen 650 mg 06/04/17 17:50 06/11/17 18:50 Tylenol - PO 650 mg Q4H PRN Administration FEVER OR PAIN Alprazolam 0.5 mg 06/11/17 10:00 06/11/17 09:38 Xanax - PO 0.5 mg BID PRN Administration Calcium Carbonate/Cholecalciferol 1 tab 06/04/17 22:00 06/11/17 09:38 Os-Romel 500+D - PO 1 tab BID BRANDON Administration Citalopram Hydrobromide 10 mg 06/05/17 10:00 06/11/17 09:38 Celexa - PO 10 mg DAILY BRANDON Administration Enoxaparin Sodium 30 mg 06/05/17 10:00 06/11/17 09:38 Lovenox - SQ 30 mg BID BRANDON Administration Fentanyl 1 patch 06/06/17 11:45 06/09/17 11:08 Duragesic 75mcg Patch - TD 1 patch Q72H BRANDON Administration Ferrous Sulfate 325 mg 06/05/17 08:00 06/11/17 17:20 Feosol - PO 325 mg BIDWM BRANDON Administration Melatonin 3 mg 06/04/17 22:00 06/10/17 21:30 Melatonin PO Not Given HS BRANDON Miscellaneous 1 each 06/06/17 09:09 06/09/17 11:13 Duragesic Patch Waste TD 1 each PRN PRN Administration PAIN Multivitamins/Minerals/Vitamin C 1 tab 06/05/17 10:00 06/11/17 09:38 Tab-A-Vit - PO 1 tab DAILY BRANDON Administration Ondansetron HCl 4 mg 06/04/17 17:50 Zofran Injection IVPUSH Q6H PRN NAUSEA AND/OR VOMITING Oxycodone HCl 10 mg 06/09/17 14:54 06/11/17 18:51 Roxicodone - PO 10 mg Q4H PRN Administration PAIN Zolpidem Tartrate 10 mg 06/11/17 22:36 Ambien - PO HS PRN INSOMNIA Home Medications Medication Instructions Recorded Gabapentin 800 mg PO TID 12/03/14 Carisoprodol [Soma] 0 mg PO DAILY 12/17/16 Citalopram Hydrobromide [Celexa -] 10 mg PO DAILY #14 tablet 06/09/17 FENTANYL 75mcg PATCH [DURAGESIC 75 mcg TD Q72H #2 patch.td72 MDD 75 06/09/17 75mcg PATCH -] Miscellaneous Drug Not In Syst 1 each ASDIR #1 [facility] [place] 06/09/17 [Outpatient Lab Test] Miscellaneous Medical Supply 1 each ASDIR #1 [facility] [place] 06/09/17 [Outpatient Order] Miscellaneous Medical Supply 1 each ASDIR #1 [facility] [place] 06/09/17 [Outpatient Order] Oxycodone HCl [Roxicodone -] 5 mg PO PRN #30 tablet MDD 30 06/09/17 Walker [Ultra-Light Rollator] 1 each ONCE #1 each 06/09/17 PE: per resident's note ASSESSMENT AND PLAN: Patient is a 61 y/o lady with h/o Anxiety , depression , panic attacks , and other medical problems who presented with a fall resulting in Right tibial Fx # Acute Right tibial Fx: s/p external fixation then IM nailing , off abx now, continue Pain meds. percocet and fentanyl patch.( her home meds ). # Severe anxiety disorder: on celexa continue, as per psych to dc Xanax upon discharge , reduce the dose to 0.25 then dc # Episode of tremor: need f/u with neuro as out pt and also psych. patient medically is clear for rehab. when bed is available As per Psych: recommendation: Client has competance and capacity to make own descisions. Discontinue xanax 0.5mg po prn bid start xanax0.25mg po prn bid then discontinue on discharge. Start Neurontin 300mg po bid ( she too 900mg po tid at home), will help with mood symptoms and pain. Continue celexa 10mg for anxiety.
[2017-06-11] MEDS: MELATONIN 1 MG TABLET PO SCH (22:50)
[2017-06-12] MEDS: ACETAMINOPHEN 325 MG TABLET (FP) PO PRN ×2 (05:56→14:37)
[2017-06-12] MEDS: oxyCODONE HCL 5 MG TABLET PO PRN ×2 (05:56→14:35)
[2017-06-12] MEDS ORDERED: ALPRAZolam 0.25 MG TABLET PO PRN (07:39)
[2017-06-12] MEDS ORDERED: GABAPENTIN 300 MG CAPSULE (FP) PO SCH (10:00)
[2017-06-12] MEDS ORDERED: PT OWN MED DRAWER 7, Y5N ONE (10:43)
[2017-06-12] MEDS: ENOXAPARIN NA (PORCINE) 30 MG/0.3 ML DISP.SYRIN SQ SCH (10:52)
[2017-06-12] MEDS: MULTIVITAMINS (DAILY MVI) TABLET (FP) PO SCH (10:52)
[2017-06-12] MEDS: CITALOPRAM HYDROBROMIDE 10 MG TABLET (FP) PO SCH (10:52)
[2017-06-12] MEDS: CALCIUM 500MG/VIT-D 200 UNITS COMBO TABLET (FP) PO SCH (10:52)
[2017-06-12] MEDS: FERROUS SO4 325 MG TABLET (FP) PO SCH ×2 (10:52→17:11)
[2017-06-12] MEDS: fentaNYL 75mcg/hr PATCH.TD72 TD SCH (11:53)
[2017-06-12] MEDS: FENTANYL PATCH WASTE TD PRN (12:20)
[2017-06-12 15:29] VITALS: BP 130/84; PULSE 80; TEMP 98.1
--- NOTE | 2017-06-12 16:37 | DS ---
Physical Exam: SUBJECTIVE: Patient seen and examined. No acute events overnight. Pt denies headache, chest pain, SOB, abdominal pain, n/v/d/c, and dysuria. She still endorses mild leg pain. OBJECTIVE: Vital Signs Period Temp Pulse Resp BP Sys/Gruber Pulse Ox Last 24 Hr 98.1 F-98.3 F 60-80 16-20 102-137/50-84 PHYSICAL EXAM GENERAL: The patient is awake, alert, and fully oriented, in no acute distress. HEENT: NC, AT LUNGS: Breath sounds equal, clear to auscultation bilaterally, no wheezes, no crackles, no accessory muscle use. HEART: Regular rate and rhythm, S1, S2 without murmur, rub or gallop. ABDOMEN: Soft, nontender, nondistended, normoactive bowel sounds, no guarding, no rebound, no hepatosplenomegaly, no masses. EXTREMITIES: right leg bandaged, distal pulses intact, motor strength and sensory function intact NEUROLOGICAL: Cranial nerves II through XII grossly intact. Normal speech, gait not observed. LABS Laboratory Tests 05/31/17 05/31/17 05/31/17 17:10 17:10 17:10 WBC 12.9 H D RBC 4.55 Hgb 14.2 D Hct 42.6 D MCV 93.7 MCH 31.2 MCHC 33.3 RDW 13.8 Plt Count 309 MPV 9.2 D Neutrophils % Lymphocytes % Monocytes % Eosinophils % Basophils % Manual Slide Review Platelet Comment ESR PT with INR 11.80 INR 1.04 Sodium 139 Potassium 4.6 Chloride 104 Carbon Dioxide 26 Anion Gap 9 BUN 17 D Creatinine 0.9 Creat Clearance w eGFR > 60 Random Glucose 106 D Calcium 9.4 Phosphorus Magnesium Total Bilirubin 0.3 D AST 22 D ALT 16 D Alkaline Phosphatase 92 D Creatine Kinase Creatine Kinase Index CK-MB (CK-2) Troponin I C-Reactive Protein Total Protein 7.2 D Albumin 4.1 D Vitamin B12 Serum Folate TSH Blood Type Antibody Screen 05/31/17 05/31/17 06/01/17 17:10 17:10 10:34 WBC 8.7 D RBC 3.67 Hgb 11.4 D Hct 35.0 D MCV 95.3 MCH 31.1 MCHC 32.7 RDW 13.8 Plt Count 254 MPV 9.1 Neutrophils % 83.5 H D Lymphocytes % 11.8 D Monocytes % 3.1 L Eosinophils % 0.4 Basophils % 1.2 Manual Slide Review Platelet Comment ESR PT with INR INR Sodium Potassium Chloride Carbon Dioxide Anion Gap BUN Creatinine Creat Clearance w eGFR Random Glucose Calcium Phosphorus Magnesium Total Bilirubin AST ALT Alkaline Phosphatase Creatine Kinase 281 H Creatine Kinase Index 0.4 CK-MB (CK-2) 1.316 Troponin I < 0.02 C-Reactive Protein Total Protein Albumin Vitamin B12 Serum Folate TSH Blood Type O NEGATIVE Antibody Screen Negative 06/01/17 06/01/17 06/01/17 10:34 10:34 10:34 WBC RBC Hgb Hct MCV MCH MCHC RDW Plt Count MPV Neutrophils % Lymphocytes % Monocytes % Eosinophils % Basophils % Manual Slide Review Platelet Comment ESR PT with INR 12.30 H INR 1.09 Sodium 142 Potassium 4.3 Chloride 112 H Carbon Dioxide 25 Anion Gap 5 L BUN 9 D Creatinine 0.7 D Creat Clearance w eGFR > 60 Random Glucose 102 Calcium 7.5 L D Phosphorus 2.4 L Magnesium 1.6 L D Total Bilirubin 0.4 D AST 14 L D ALT 9 L D Alkaline Phosphatase 70 D Creatine Kinase Creatine Kinase Index CK-MB (CK-2) Troponin I C-Reactive Protein Total Protein 5.7 L D Albumin 3.0 L D Vitamin B12 668 Serum Folate 15 TSH 0.59 Blood Type Antibody Screen 06/02/17 06/02/17 06/03/17 07:45 07:45 06:30 WBC 12.2 H D 7.8 D RBC 3.46 L 3.47 L Hgb 10.6 L 10.8 Hct 32.7 32.6 MCV 94.5 94.2 MCH 30.6 31.2 MCHC 32.4 33.1 RDW 13.7 13.4 Plt Count 261 273 MPV 9.6 9.5 Neutrophils % Lymphocytes % Monocytes % Eosinophils % Basophils % Manual Slide Review Platelet Comment ESR PT with INR INR Sodium 142 Potassium 4.0 Chloride 111 H Carbon Dioxide 23 Anion Gap 8 BUN 8 Creatinine 0.7 Creat Clearance w eGFR Random Glucose 99 Calcium 8.3 L Phosphorus 3.5 D Magnesium 1.7 L Total Bilirubin AST ALT Alkaline Phosphatase Creatine Kinase Creatine Kinase Index CK-MB (CK-2) Troponin I C-Reactive Protein Total Protein Albumin Vitamin B12 Serum Folate TSH Blood Type Antibody Screen 06/03/17 06/04/17 06/04/17 06:30 07:15 07:15 WBC 7.5 RBC 3.81 Hgb 11.5 Hct 35.7 MCV 93.7 MCH 30.3 MCHC 32.3 RDW 13.4 Plt Count 309 MPV 9.4 Neutrophils % Lymphocytes % Monocytes % Eosinophils % Basophils % Manual Slide Review Platelet Comment ESR PT with INR INR Sodium 144 144 Potassium 3.8 3.3 L Chloride 111 H 106 Carbon Dioxide 24 29 D Anion Gap 9 9 BUN 8 6 L D Creatinine 0.7 0.7 Creat Clearance w eGFR Random Glucose 83 84 Calcium 8.3 L 8.6 Phosphorus 3.6 3.1 Magnesium 1.7 L 1.8 Total Bilirubin AST ALT Alkaline Phosphatase Creatine Kinase Creatine Kinase Index CK-MB (CK-2) Troponin I C-Reactive Protein Total Protein Albumin Vitamin B12 Serum Folate TSH Blood Type Antibody Screen 06/05/17 06/05/17 06/05/17 07:00 07:00 18:15 WBC 9.9 D RBC 3.19 L Hgb 9.9 L D Hct 29.7 L D MCV 92.8 MCH 31.0 MCHC 33.4 RDW 13.3 Plt Count 325 MPV 9.2 Neutrophils % Lymphocytes % Monocytes % Eosinophils % Basophils % Manual Slide Review Platelet Comment ESR 17 PT with INR INR Sodium Potassium Chloride Carbon Dioxide Anion Gap BUN Creatinine Creat Clearance w eGFR Random Glucose Calcium Phosphorus Magnesium Total Bilirubin AST ALT Alkaline Phosphatase Creatine Kinase Creatine Kinase Index CK-MB (CK-2) Troponin I C-Reactive Protein 1.5 H Total Protein Albumin Vitamin B12 Serum Folate TSH Blood Type Antibody Screen 06/05/17 06/06/17 06/06/17 18:15 16:58 17:45 WBC 10.0 RBC 3.35 L Hgb 10.6 L Hct 31.3 L MCV 93.6 MCH 31.7 MCHC 33.9 RDW 13.3 Plt Count 363 MPV 8.9 Neutrophils % Lymphocytes % Monocytes % Eosinophils % Basophils % Manual Slide Review Platelet Comment ESR PT with INR INR Sodium 143 143 Potassium 3.7 3.8 Chloride 108 H 107 Carbon Dioxide 27 29 Anion Gap 8 7 L BUN 8 D 11 D Creatinine 0.8 0.6 D Creat Clearance w eGFR > 60 > 60 Random Glucose 127 H D 102 Calcium 8.0 L 8.1 L Phosphorus Magnesium Total Bilirubin 0.3 D 0.3 AST 5 L D 6 L ALT 6 L D 7 L Alkaline Phosphatase 66 70 Creatine Kinase Creatine Kinase Index CK-MB (CK-2) Troponin I C-Reactive Protein Total Protein 5.2 L 5.7 L Albumin 2.7 L 2.9 L Vitamin B12 Serum Folate TSH Blood Type Antibody Screen 06/07/17 06/07/17 06/07/17 08:00 16:27 16:27 WBC 8.8 9.3 RBC 3.33 L 3.21 L Hgb 10.3 L 10.0 L Hct 31.4 L 30.3 L MCV 94.4 94.4 MCH 30.8 31.2 MCHC 32.7 33.0 RDW 13.4 13.6 Plt Count 353 376 MPV 8.9 9.1 Neutrophils % Lymphocytes % Monocytes % Eosinophils % Basophils % Manual Slide Review Platelet Comment ESR PT with INR INR Sodium 145 Potassium 3.8 Chloride 108 H Carbon Dioxide 29 Anion Gap 8 BUN 18 D Creatinine 0.7 Creat Clearance w eGFR > 60 Random Glucose 86 Calcium 8.2 L Phosphorus Magnesium Total Bilirubin 0.2 D AST 7 L ALT 9 L D Alkaline Phosphatase 61 Creatine Kinase Creatine Kinase Index CK-MB (CK-2) Troponin I C-Reactive Protein Total Protein 5.3 L Albumin 2.6 L Vitamin B12 Serum Folate TSH Blood Type Antibody Screen HOSPITAL COURSE: Date of Admission:05/31/17 Date of Discharge: 06/12/17 61F w/ hx of anxiety, depression, panic attacks, and other medical problems who presented with a fall resulting in R tibial Fx. Pt underwent external fixation followed by intramedullary nailing. Her pain was controlled with percocet and fentanyl patches. She underwent physical therapy. Pt was started on celexa for her anxiety with good response. Pt reports a "shaking episode" that preceded her fall which is believed to be related to an anxiety attack, informed to f/u as outpatient with neurology to fully evaluate. Pt has normal vitals, is stable, and is ready for discharge to SNF. Pt instructed to f/u with PCP, psych, orthopedic surgery, and neuro. -Leon Hardin MD PGY1 Minutes to complete discharge: 35 Discharge Summary Reason For Visit: OPEN FRACTURE OF TIBA Current Active Problems Open displaced comminuted fracture of shaft of right tibia (Acute) Substance induced mood disorder (Acute) Condition: Stable - Instructions Diet, Activity, Other Instructions: You presented to the hospital after a fall and were found to have a right tibial fracture. You underwent an external fixation followed by an intramedullary nail procedure. You completed a course of antibiotics, and your pain was controlled. Medications: You were started on citalopram 10mg once a day, so please continue taking that for your anxiety. Follow-ups: 1. Follow up with your PCP within one week. If you don't have one, we have referred you to Dr. Duran. 2. Please follow up with orthopedic surgeon, Dr. Zuñiga, within one week. 3. Please follow up with a neurologist, Dr. Smith, regarding your episodes of shaking. 4. Please follow up with a psychiatrist, Dr. Garza, regarding your anxiety. If you develop any chest pain, shortness of breath, or other severe symptoms, return to the ED. Referrals: Shamar Duran MD [Staff Physician] - 1 Week Ramsey Garza MD [Staff Physician] - Juan Smith MD [Staff Physician] - Jethro Zuñiga MD [Staff Physician] - 1 Week Disposition: INTERMEDIATE FACILITY - Home Medications Comprehensive Discharge Medication List: Ambulatory Orders Carisoprodol [Soma] 0 mg PO DAILY 12/17/16 Citalopram Hydrobromide [Celexa -] 10 mg PO DAILY #14 tablet 06/09/17 Acetaminophen [Tylenol .Regular Strength -] 650 mg PO Q4H PRN tablet 06/12/17 Calcium 500Mg/Vit-D 200 Units [Os-Romel 500+D -] 1 tab PO BID tab 06/12/17 FENTANYL 75mcg PATCH [DURAGESIC 75mcg PATCH -] 1 patch TD Q72H patch.td72 MDD 1 06/12/17 Fentanyl Patch Waste [Duragesic Patch Waste] 1 each TD PRN PRN each 06/12/17 Ferrous Sulfate [Feosol] 325 mg PO BIDWM ud 06/12/17 Gabapentin [Neurontin -] 300 mg PO BID capsule 06/12/17 Multivitamins [Multivit ([facility] Formulary)] 1 tab PO DAILY tab 06/12/17 Oxycodone HCl [Roxicodone -] 10 mg PO Q4H PRN #18 tablet MDD 60 06/12/17 This patient is new to me today: No Emergency Visit: Yes ED Registration Date: 05/31/17 Care time: The patient presented to the Emergency Department on the above date and was hospitalized for further evaluation of their emergent condition. Critical Care patient: No - Discharge Referral Referred to [facility] No
--- NOTE | 2017-06-12 20:46 | PN ---
Teaching Attending Note Name of Resident: Leon Hardin ATTENDING PHYSICIAN STATEMENT I saw and evaluated the patient. I reviewed the resident's note and discussed the case with the resident. I agree with the resident's findings and plan as documented. SUBJECTIVE: Patient is feeling better with no acute distress, no shortness of breath, no nausea or vomiting. OBJECTIVE: Vital Signs Temperature 98.1 F 06/12/17 14:00 Pulse Rate 80 06/12/17 14:00 Respiratory Rate 20 06/12/17 14:00 Blood Pressure 130/84 06/12/17 14:00 O2 Sat by Pulse Oximetry (%) 96 06/07/17 21:00 CBCD WBC 9.3 K/mm3 (4.0-10.0) 06/07/17 16:27 RBC 3.21 M/mm3 (3.60-5.2) L 06/07/17 16:27 Hgb 10.0 GM/dL (10.7-15.3) L 06/07/17 16:27 Hct 30.3 % (32.4-45.2) L 06/07/17 16:27 MCV 94.4 fl (80-96) 06/07/17 16:27 MCHC 33.0 g/dl (32.0-36.0) 06/07/17 16:27 RDW 13.6 % (11.6-15.6) 06/07/17 16:27 Plt Count 376 K/MM3 (134-434) 06/07/17 16:27 MPV 9.1 fl (7.5-11.1) 06/07/17 16:27 CMP Sodium 145 mmol/L (136-145) 06/07/17 16:27 Potassium 3.8 mmol/L (3.5-5.1) 06/07/17 16:27 Chloride 108 mmol/L (98-107) H 06/07/17 16:27 Carbon Dioxide 29 mmol/L (21-32) 06/07/17 16:27 Anion Gap 8 (8-16) 06/07/17 16:27 BUN 18 mg/dL (7-18) D 06/07/17 16:27 Creatinine 0.7 mg/dL (0.55-1.02) 06/07/17 16:27 Creat Clearance w eGFR > 60 (>60) 06/07/17 16:27 Random Glucose 86 mg/dL (74-106) 06/07/17 16:27 Calcium 8.2 mg/dL (8.5-10.1) L 06/07/17 16:27 Total Bilirubin 0.2 mg/dL (0.2-1.0) D 06/07/17 16:27 AST 7 U/L (15-37) L 06/07/17 16:27 ALT 9 U/L (12-78) L D 06/07/17 16:27 Alkaline Phosphatase 61 U/L (45-117) 06/07/17 16:27 Total Protein 5.3 g/dl (6.4-8.2) L 06/07/17 16:27 Albumin 2.6 g/dl (3.4-5.0) L 06/07/17 16:27 CARDIAC ENZYMES Creatine Kinase 281 IU/L (26-192) H 05/31/17 17:10 Troponin I < 0.02 ng/ml (0.00-0.05) 05/31/17 17:10 Home Medications Medication Instructions Recorded Carisoprodol [Soma] 0 mg PO DAILY 12/17/16 Citalopram Hydrobromide [Celexa -] 10 mg PO DAILY #14 tablet 06/09/17 Acetaminophen [Tylenol .Regular 650 mg PO Q4H PRN tablet 06/12/17 Strength -] Calcium 500Mg/Vit-D 200 Units 1 tab PO BID tab 06/12/17 [Os-Romel 500+D -] FENTANYL 75mcg PATCH [DURAGESIC 1 patch TD Q72H patch.td72 MDD 1 06/12/17 75mcg PATCH -] Fentanyl Patch Waste [Duragesic 1 each TD PRN PRN each 06/12/17 Patch Waste] Ferrous Sulfate [Feosol] 325 mg PO BIDWM ud 06/12/17 Gabapentin [Neurontin -] 300 mg PO BID capsule 06/12/17 Multivitamins [Multivit ([facility] 1 tab PO DAILY tab 06/12/17 Formulary)] Oxycodone HCl [Roxicodone -] 10 mg PO Q4H PRN #18 tablet MDD 60 06/12/17 PE: per resident's note ASSESSMENT AND PLAN: Patient is a 61 y/o lady with h/o Anxiety , depression , panic attacks , and other medical problems who presented with a fall resulting in Right tibial Fx # Acute Right tibial Fx: s/p external fixation then IM nailing , off abx now, continue Pain meds. percocet and fentanyl patch.( her home meds /as per ortho). # Severe anxiety disorder: on celexa 10mg continue, as per psych reduce the dose of Xanax to 0.25 then dc, completed the taper of Xanax. # Episode of tremor: most likely due to her anxiety disorder ; need f/u with neuro as out pt and also psych. patient medically is clear for rehab. when bed is available As per Psych: recommendation: Client has competance and capacity to make own descisions. Discontinue xanax 0.5mg po prn bid start xanax0.25mg po prn bid then discontinue on discharge. Start Neurontin 300mg po bid ( she too 900mg po tid at home), will help with mood symptoms and pain. Continue celexa 10mg for anxiety.
== END 2017-06-12 19:56 | DRG 313 ==
LOC: JER 15:43 → JERBED 19:14 → J6S 22:26
PROVIDERS: ADMIT Internal Medicine; ATTEND Internal Medicine
PROC: 0HDKXZZ Extraction of Right Lower Leg Skin, External Approach (ICD-10-PCS; 2017-06-01)
PROC: 0QSG05Z Reposition Right Tibia with External Fixation Device, Open Approach (ICD-10-PCS; 2017-06-01)
PROC: 0SP Lower Joints, Removal (ICD-10-PCS; 2017-06-04)
PROC: 0QSG06Z Reposition Right Tibia with Intramedullary Internal Fixation Device, Open Approach (ICD-10-PCS; principal; 2017-06-04 14:00)
DX: S82.391B Other fracture of lower end of right tibia, initial encounter for open fracture type I or II (principal); F41.0 Panic disorder [episodic paroxysmal anxiety]; G40.802 Other epilepsy, not intractable, without status epilepticus; M54.89 Other dorsalgia; R25.1 Tremor, unspecified; E87.6 Hypokalemia; F17.290 Nicotine dependence, other tobacco product, uncomplicated; W18.39XA Other fall on same level, initial encounter; Y93.89 Activity, other specified; Y92.098 Other place in other non-institutional residence as the place of occurrence of the external cause; G47.09 Other insomnia; E83.39 Other disorders of phosphorus metabolism; E83.42 Hypomagnesemia; R55 Syncope and collapse; D72.828 Other elevated white blood cell count; F41.8 Other specified anxiety disorders; F19.94 Other psychoactive substance use, unspecified with psychoactive substance-induced mood disorder
CPT/HCPCS: 36415; 70450-TC; 71010-TC; 73590-TC-RT; 73700-TC-RT; 76000-TC; 80048; 80053; 82550; 82553; 82607; 82746; 83735; 84100; 84443; 84484; 85025; 85027; 85610; 85651; 86140; 86850; 86900; 86901; 87040; 87081; 90715; 93005; 93010; 94760; 97116-GP; 97161-GP; 99285-25

== ENCOUNTER 2018-02-11 18:53 | Inpatient (IN) | payer OTHER ==
[2018-02-11 20:02] LABS: VENOUS PO2 25.6 mmHg (28-48)
[2018-02-11 20:03] LABS: VENOUS PC02 75.7 mmHg (38-52); VENOUS PH 7.06 (7.32-7.42)
--- NOTE | 2018-02-11 20:21 | PDOC ---
History of Present Illness - General Chief Complaint: Overdose Stated Complaint: OVERDOSE Time Seen by Provider: 02/11/18 19:02 History Source: EMS, Family (Daughter) Exam Limitations: Unresponsive - History of Present Illness Initial Comments: Pt, with PMH of seizures (takes gabapentin) and fentanyl patches for ortho pain control, presents to the ER via EMS after being found unresponsive by her daughter. Her daughter states the pts inés saw the pt last known normal at approximately 11am. Around 4 pm, the daughter found her unresponsive with a Fentanyl patch in her mouth. She did not notice any other pills or alcohol near the bed. Her daughter had a friend call EMS, but ambulance did not arrive at [facility] ED until approximately 6:30 pm. The daughter states the pt "was acting normal the past few days," but the daughter appears altered and is a poor historian. The pt was intubated with no sedative medication in the ambulance, and they provided 6 mg Narcan. On arrival, vitals were 86/45, HR 99, O2 sat 73%, rectal temp 99.5. 02/11/18 19:59 02/11/18 21:35 02/11/18 22:22 Past History - Travel If so, where?: unknown - Past Medical History Allergies/Adverse Reactions: Allergies Allergy/AdvReac Type Severity Reaction Status Date / Time lactose AdvReac Unknown Verified 02/11/18 21:25 Home Medications: Ambulatory Orders Carisoprodol [Soma] 0 mg PO DAILY 12/17/16 Citalopram Hydrobromide [Celexa -] 10 mg PO DAILY #14 tablet 06/09/17 Acetaminophen [Tylenol .Regular Strength -] 650 mg PO Q4H PRN tablet 06/12/17 Calcium 500Mg/Vit-D 200 Units [Os-Romel 500+D -] 1 tab PO BID tab 06/12/17 FENTANYL 75mcg PATCH [DURAGESIC 75mcg PATCH -] 1 patch TD Q72H patch.td72 MDD 1 06/12/17 Fentanyl Patch Waste [Duragesic Patch Waste] 1 each TD PRN PRN each 06/12/17 Ferrous Sulfate [Feosol] 325 mg PO BIDWM ud 06/12/17 Gabapentin [Neurontin -] 300 mg PO BID capsule 06/12/17 Multivitamins [Multivit ([facility] Formulary)] 1 tab PO DAILY tab 06/12/17 oxyCODONE HCL [Roxicodone -] 10 mg PO Q4H PRN #18 tablet MDD 60 06/12/17 Anemia: No Asthma: No Cancer: No Cardiac Disorders: No CVA: No COPD: No CHF: No Dementia: No Diabetes: No GI Disorders: No Disorders: No HTN: No Hypercholesterolemia: No Liver Disease: No Psychiatric Problems: Yes (PANIC ATTACKS) Seizures: No Thyroid Disease: No Other medical history: back problem - Surgical History Abdominal Surgery: No Appendectomy: Yes Cardiac Surgery: No Cholecystectomy: No Lung Surgery: No Neurologic Surgery: Yes (herniated disc,scoliosis) Orthopedic Surgery: No - Immunization History Immunization Up to Date: Yes - Suicide/Smoking/Psychosocial Hx Smoking Status: Yes Smoking History: Unknown if ever smoked Have you smoked in the past 12 months: Yes Number of Cigarettes Smoked Daily: 7 Cigars Per Day: 0 Information on smoking cessation initiated: No 'Breaking Loose' booklet given: 10/24/16 Hx Alcohol Use: No Drug/Substance Use Hx: Yes Substance Use Type: None, Prescribed Hx Substance Use Treatment: No Review of Systems - Review of Systems Able to Perform ROS?: No (intubated.) Comments:: Daughter poor historian and appears intoxicated. 02/11/18 23:13 Is the patient limited Setswana proficient: Yes *Physical Exam - Vital Signs Last Vital Signs Temp Pulse Resp BP Pulse Ox 99 H 86/45 73 L 02/11/18 18:59 02/11/18 18:59 02/11/18 18:59 - Physical Exam General Appearance: Yes: Nourished, Apparent Distress (undressed by EMS), Severe Distress (intubated, minimal respiratory effort with BVM. Pupils sluggish. ). No: Appropriately Dressed (undressed by ) HEENT: negative: EOMI, JOEL (equal, sluggish 4 mm. ), Normal ENT Inspection ( intubated), Scleral Icterus (R), Scleral Icterus (L), Rhinorrhea, Excessive drooling Neck: positive: Trachea midline, Supple. negative: Tender, Rigid, Lymphadenopathy (R), Lymphadenopathy (L), Rigidity Respiratory/Chest: positive: Respiratory Distress, Rhonchi (coarse breath sounds throughout. Pt intubated and producing some respirations spontaneously. Providing BVM 10 L O2 on arrival. ). negative: Chest Tender (no grimace to palpation), Lungs Clear, Normal Breath Sounds, Accessory Muscle Use, Stridor, Wheezing Cardiovascular: positive: Regular Rhythm, Regular Rate. negative: Edema, JVD, Murmur Vascular Pulses: Femoral (R): 2+, Femoral (L): 2+ Gastrointestinal/Abdominal: positive: Normal Bowel Sounds, Flat, Soft. negative : Tender (no grimace to palpation), Organomegaly, Pulsatile Mass Rectal Exam: positive: decreased tone (decreased tone, with soft brown bowel movements). negative: normal rectal tone Lymphatic: negative: Adenopathy, Tenderness Musculoskeletal: positive: Normal Inspection, Other (~10-12 inch, well-healed vertical midline lumbar scar ) Extremity: positive: Pelvis Stable, Coldness. negative: Normal Capillary Refill (delayed cap refill 5-6 seconds with skin tenting), Normal Inspection, Tender (no grimace), Pedal Edema, Swelling Integumentary: positive: Dry, Pale (pale, bluish tips of fingers and toes), Cold. negative: Normal Color, Warm, Jaundice, Mottled, Diaphoresis, Petechiae, Rash, Ecchymosis Neurologic: negative: curb hop II-XII NML intact, Fully Oriented, Alert, Normal Mood/ Affect, Normal Response, Motor Strength 5/5, Respond to painful stimul, Responsive (unresponsive, does not respond to pain, intubated.) ED Treatment Course - LABORATORY CBC & Chemistry Diagram: 02/11/18 19:50 02/11/18 19:50 - ADDITIONAL ORDERS Additional order review: Laboratory Results 02/11/18 18:57 POC Glucometer [id number] 02/11/18 18:57 POC Glucometer [id number] Medical Decision Making - Medical Decision Making (entered later) Pt seen at bedside, brought by EMS. Pt unresponsive and was intubated on arrival, found unresponsive by daughter with a Fentanyl patch in her mouth. 6 mg Narcan was administered by EMS. Pt placed on ventilator by respiratory team. Pt was taken to CT scan as soon as labs were drawn. CT shows no acute changes. Bedside glucometer 104. Pending labs. Started 2 L NS [id number] CT/HEAD CT WITHOUT CONTRAST Change in mental status. Overdose. CT scan of the brain without intravenous contrast Compared to prior examination dated 06/01/2017 Examination is slightly limited due to linear-like artifacts There remains mild volume loss and moderate periventricular chronic microvascular ischemic disease changes. The ventricles and basal cisterns appear unremarkable. No mass lesion, gross acute infarct or intracranial hemorrhage are identified. There is no shift of the midline structures. The craniocervical junction appears unremarkable. Minimal mucosal thickening in the ethmoid air cells. Small air-fluid level in the sphenoid sinus. Desiccation of the cavernous carotid arteries are present. The mastoid air cells are well aerated and the calvarium is intact. Both orbits appear unremarkable Notes made of a tiny osteoma in the right ethmoid air cells measuring 5 mm Impression: No significant interval change. Mild volume loss and moderate periventricular chronic microvascular ischemic disease changes. No gross acute intracranial pathology is identified. Mild sinusitis with a small air-fluid level in the sphenoid sinus 02/11/18 19:59 Labs signficant for the following: CBC: WBC 13.5 VBG: pH 7.06, CO2 75.7, O2 25.6 CMP: K 6.1 with no acute ECG changes (no peaked T waves), BUN 20, Cr 2.5 Lactic acid 7.8 AST 1201, ALT 687, ALKP 127 -- added acetaminophen and salicylate to tox screen. Provided additional 2L NS (3L total so far) and added 3.375 mg IV Zosyn for antibiotic coverage. Pt was taken for CT chest, abdomen, and pelvis. To determine source of infection. UA negative for infection. UA drug screen showed positive for benzodiazepine. Pending acetaminophen and salicylates. Pt vitals stable. Intubated. Has been responsive to name, and simple commands ( squeezing hand). 02/11/18 23:02 Pt BP 89/63, providing additional 1L NS (4 L total) 02/11/18 23:21 Repeat ABG ordered as last sample was contaminated. Pt going to ICU. 02/11/18 23:33 Pt waking, had an episode of brown vomiting. Pt asked if she would like tube removed and she shook her head yes. Pt extubated by respiratory and suctioned. Pt alert and can respond to commands. She states she took gabapentin and had put the fenatyl patch in her mouth because "her bottom hurt". Pt placed on NB at 5L O2. Placed sheet under neck to prevent snoring respirations. Pt being taken to ICU and she is receiving her 4th L NS. 02/11/18 23:52 *DC/Admit/Observation/Transfer Diagnosis at time of Disposition: Endotracheally intubated Overdose Qualifiers: Encounter type: initial encounter Injury intent: undetermined intent Qualified Code(s): T50.904A - Poisoning by unspecified drugs, medicaments and biological substances, undetermined, initial encounter - Discharge Dispostion Condition at time of disposition: Stable Decision to Admit order: Yes - Referrals - Patient Instructions - Post Discharge Activity
[2018-02-11 20:22] LABS: BASO % 0.3 % (0-2.0); EOS % 0.1 % (0-4.5); HEMATOCRIT 44.2 % (32.4-45.2); LYMPH % 10.9 % (8-40); MCH 32.1 pg (25.7-33.7); MCHC 31.7 g/dl (32.0-36.0); MEAN CELL VOLUME 101.3 fl (80-96); MEAN PLT VOLUME 8.1 fl (7.5-11.1); MONO % 4.6 % (3.8-10.2); NEUT % 84.1 % (42.8-82.8); PLATELET COUNT 235 K/MM3 (134-434); RBC 4.36 M/mm3 (3.60-5.2); RDW 16.1 % (11.6-15.6); WHITE BLOOD COUNT 13.5 K/mm3 (4.0-10.0)
[2018-02-11 20:37] LABS: INR 1.13 (0.83-1.09); PROTHROMBIN TIME (PATIENT) 12.8 SEC (9.7-13.0)
[2018-02-11 20:39] LABS: ALBUMIN 3.6 g/dl (3.4-5.0); ANION GAP 18 MMOL/L (8-16); BILIRUBIN,TOTAL 0.4 mg/dL (0.2-1.0); BLOOD UREA NITROGEN 20 mg/dL (7-18); CALCIUM 8.9 mg/dL (8.5-10.1); CHLORIDE 103 mmol/L (98-107); CO2 21 mmol/L (21-32); CREATININE 2.5 mg/dL (0.55-1.02); POTASSIUM 6.1 mmol/L (3.5-5.1); SODIUM 142 mmol/L (136-145)
[2018-02-11 20:40] LABS: ACTIVATED PTT 35.5 SECONDS (25.2-36.5)
[2018-02-11 20:44] LABS: ALK PHOS 127 U/L (45-117)
[2018-02-11] MEDS ORDERED: SODIUM CHLORIDE 1,000 ML IV STA (20:45)
[2018-02-11 20:49] LABS: SGOT/AST 1201 U/L (15-37); SGPT/ALT 687 U/L (12-78)
[2018-02-11 20:51] LABS: GLUCOSE,RANDOM 78 mg/dL (74-106)
[2018-02-11] MEDS ORDERED: SODIUM CHLORIDE 0.9% 1000 ML INFUS.BAG IV ONE (21:12)
[2018-02-11] MEDS ORDERED: PIPERACILLIN/TAZOB 3.375 GM 3.375 GM in DEXTROSE 5%-WATER - 50 ML IVPB ONE (21:23)
[2018-02-11 21:43] LABS: URINE APPEARANCE CLEAR; URINE BILIRUBIN NEGATIVE (<2.0 mg/dL); URINE COLOR LTYELLOW; URINE GLUCOSE (UA) NEGATIVE (NEGATIVE); URINE KETONE NEGATIVE (NEGATIVE); URINE LEUK ESTERASE NEGATIVE (NEGATIVE); URINE NITRITE NEGATIVE (NEGATIVE); URINE PROTEIN NEGATIVE (NEGATIVE); URINE UROBILINOGEN NEGATIVE mg/dL (0.2-1.0)
--- NOTE | 2018-02-11 21:43 | PN ---
Teaching Attending Note Name of Resident: Dilia Henderson ATTENDING PHYSICIAN STATEMENT I saw and evaluated the patient. I reviewed the resident's note and discussed the case with the resident. I agree with the resident's findings and plan as documented. SUBJECTIVE: Patient is a 62 year old woman brought by EMS after being found unresponsive on her bed by her daughter with a Fentanyl patch in her mouth. She was intubated by EMS prior to arrival in the ER and they aslo gave her Narcan. Review of her records show multiple hospital admissions and history of chronic opiate use for chronic back pain, anxiety disorder, depression, panic attacks, tobacco use, right tibia fracture questionable history of seizures. In the ER patient was hypotensive (86/45) and reportedly vomited and had a loose BM with blood streaks. OBJECTIVE: Intubated and unresponsive Vital Signs Period Temp Pulse Resp BP Sys/Gruber Pulse Ox Last 24 Hr 99.3 F-99.3 F 88-99 20-29 86-120/44-83 70-73 HEENT: No Jaundice, eye redness or discharge, PERRLA, Normocephalic, atraumatic. External ears are normal. No nasal discharge. Neck: Supple, nontender. No palpable adenopathy or thyromegaly. No JVD Chest: Good effort. Clear to auscultation and percussion. Heart: Regular. No S3, rub or murmur Abdomen: Not distended, soft, nontender and no HSM. No rebound or guarding. Normoactive bowel sounds. Ext: Peripheral pulses intact. No leg edema. Skin: Warm and dry. No petechiae, rash or ecchymosis. Neuro: Intubated and unresponsive. Current Medications Generic Name Dose Route Start Last Admin Trade Name Freq PRN Reason Stop Dose Admin Sodium Chloride 1,000 mls @ 1,000 mls/hr 02/11/18 20:45 02/11/18 21:00 Normal Saline - IV 02/11/18 21:44 1,000 mls/hr ASDIR STA Administration Piperacillin Sod/Tazobactam 50 mls @ 100 mls/hr 02/11/18 21:23 Sod 3.375 gm/ Dextrose IVPB 02/11/18 21:52 ONCE ONE Protocol Home Medications Medication Instructions Recorded Carisoprodol [Soma] 0 mg PO DAILY 12/17/16 Citalopram Hydrobromide [Celexa -] 10 mg PO DAILY #14 tablet 06/09/17 Acetaminophen [Tylenol .Regular 650 mg PO Q4H PRN tablet 06/12/17 Strength -] Calcium 500Mg/Vit-D 200 Units 1 tab PO BID tab 06/12/17 [Os-Romel 500+D -] FENTANYL 75mcg PATCH [DURAGESIC 1 patch TD Q72H patch.td72 MDD 1 06/12/17 75mcg PATCH -] Fentanyl Patch Waste [Duragesic 1 each TD PRN PRN each 06/12/17 Patch Waste] Ferrous Sulfate [Feosol] 325 mg PO BIDWM ud 06/12/17 Gabapentin [Neurontin -] 300 mg PO BID capsule 06/12/17 Multivitamins [Multivit ([facility] 1 tab PO DAILY tab 06/12/17 Formulary)] oxyCODONE HCL [Roxicodone -] 10 mg PO Q4H PRN #18 tablet MDD 60 06/12/17 Abnormal Lab Results 02/11/18 02/11/18 02/11/18 19:50 19:50 19:50 WBC 13.5 H MCV 101.3 H MCHC 31.7 L RDW 16.1 H Absolute Neuts (auto) 11.3 H Neutrophils % 84.1 H INR 1.13 H VBG pH 7.06 L* POC VBG pCO2 75.7 H* POC VBG pO2 25.6 L Potassium Anion Gap BUN Creatinine Lactic Acid AST ALT Alkaline Phosphatase Troponin I 02/11/18 02/11/18 02/11/18 19:50 19:50 19:50 WBC MCV MCHC RDW Absolute Neuts (auto) Neutrophils % INR VBG pH POC VBG pCO2 POC VBG pO2 Potassium 6.1 H* Anion Gap 18 H BUN 20 H Creatinine 2.5 H Lactic Acid 7.8 H* AST 1201 H ALT 687 H Alkaline Phosphatase 127 H Troponin I 1.38 H* ASSESSMENT AND PLAN: 1. Unresponsiveness/Sepsis - No acute abnormality on head CT scan or CXR and results of chest, abd/pelvic CT pending. EKG shows nonspecific ST-T wave changes. While her unresponsiveness may be due to drug overdose, seizure and/ or toxic metabolic encephalopathy due to sepsis are potential culprits. Will give another dose of Narcan, check CPK, hepatitis serology and urine toxicology. Sepsis may also explain elevated LFTs and QUINTEN. Will continue IV NS, trend lactic acid, LFTs and BMP. No EKG changes of hyperkalemia - aggressive IV NS will enhance K+ excretion. Elevated troponin likely due to demand ischemia and QUINTEN - will repeat and monitor EKG to rule out ACS. Treat with IV Keppra, Vancomycin and Zosyn pending culture report. 2. DVT prophylaxis - Heparin 5000u sq tid. 3. Advance directives - Full code
[2018-02-11 21:44] LABS: URINE BACTERIA RARE /hpf (NONE SEEN); URINE MUCUS RARE
[2018-02-11] MEDS ORDERED: PIPERACILLIN/TAZOB 3.375 GM 3.375 GM/50 ML BAG IVPB ONE (22:27)
[2018-02-11 22:32] LABS: URINE AMPHETAMINES NEGATIVE ng/ml (CUTOFF=500)
[2018-02-11 22:33] LABS: COCAINE, UR NEGATIVE ng/ml (CUTOFF=300); METHADONE, UR NEGATIVE ng/ml (CUTOFF=300); OPIATES, URI NEGATIVE ng/ml (CUTOFF=300); PHENCYCLIDINE,URINE NEGATIVE ng/ml (CUTOFF=25); URINE BARBITURATES NEGATIVE ng/ml (CUTOFF=200); URINE BENZODIAZEPINES POSITIVE ng/ml (CUTOFF=200)
--- NOTE | 2018-02-11 22:37 | PDOC ---
Attending Attestation - HPI HPI: 02/11/18 22:38 The patient is a 62-year-old female with significant past medical history of opioid dependency, epilepsy (Gabapentin), skeletal back problems (Fentanyl patches), panic attacks, who presents to the emergency department today BIBEMS s /p apparent overdose. History is obtained from EMS and the patients daughter at bedside due to patient's status. The patients daughter found her unresponsive in her bed at home with a Fentanyl patch in her mouth. The daughter called EMS 2 hours after she found her mother in her bed. The patient was last known normal at 11 am this morning. EMS provided 6 mg of Narcan prior to ED arrival; the patient was then immediately intubated. Allergies: NKDA Social history: 7 cigarettes per day, opioid dependency Surgical history: appendectomy, herniated disc, scoliosis PCP: unknown - Physicial Exam PE: 02/11/18 23:46 Vitals: Triage vital signs reviewed General Appearance: Severe distress, intubated, lethargic, nonverbal, nonambulatory, well nourished, well developed Head: Atraumatic Eyes: Pupils dialated Ears: TM's normal bilaterally Nose: Nares patent bilaterally; no nasal congestion Throat: Posterior oropharynx without erythema, mucous membranes moist Neck: Supple; No nuchal rigidity Chest Wall: Nontender Cardiac: Regular rate and rhythm, no murmurs, no rubs, no gallops Lungs: Clear to auscultation bilateral, good air movement bilaterally Abdomen: Soft, nondistended, normal bowel sounds Rectal: Exam deferred Extremities: Full range of motion to all extremities, no cyanosis, clubbing, or edema Skin: Warm and dry, no rashes or lesions, no rash, no petechiae <Kathy Coker - Last Filed: 02/11/18 23:45> - Resident Resident Name: Nani Krishnan - ED Attending Attestation I have performed the following: I have examined & evaluated the patient, The case was reviewed & discussed with the resident, I agree w/resident's findings & plan, Exceptions are as noted - Critical Care Time Total Critical Care Time: 65 Critical Care Statement: The care of this patient involved high complexity decision making to prevent further life threatening deterioration of the patient 's condition and/or to evaluate & treat vital organ system(s) failure or risk of failure. - Medical Decision Making 02/12/18 01:47 On arrival to the emergency department patient intubated pupils dilated patient breathing over the vent agitated moving extremities Stat head CT ordered no acute blood noted Labs notable for white count of 13.5 elevated lactic acid and elevations of the patient's liver function tests. The first 2 findings can be seen with seizures However given borderline hypotension elevated WBC and lactic acid 30 mL per Cager IV fluids ordered broad-spectrum antibiotics ordered CT chest abdomen pelvis ordered to rule out additional infection No acute findings on CT abdomen pelvis Reevaluation patient now awake gagging biting on ET tube. Able to speak decision made to extubate patient Respiratory at bedside patient met criteria for extubation patient successfully extubated. We'll continue to admit to ICU for further management. Differential diagnosis includes overdose possibly from fentanyl/benzos seizure disorder or possibly sepsis unknown origin <Akhil Ellis - Last Filed: 02/12/18 01:48> Heart Score/ECG Review - ECG Impressions Comment:: 02/12/18 01:47 Sinus rhythm 90 bpm. ME interval 110, QRS 70, QTC 464. No ST elevations bright red axis deviation. No T-wave inversions. Interpreted by me <Akhil Ellis - Last Filed: 02/12/18 01:48> Attestations - Attestations 02/11/18 22:40 Documentation prepared by Kathy Coker, acting as medical psychotherapist for Akhil Ellis MD. <Kathy Coker - Last Filed: 02/11/18 23:45>
[2018-02-11] MEDS ORDERED: SODIUM CHLORIDE 1,000 ML IV SCH ×2 (23:00→23:45)
[2018-02-11] MEDS ORDERED: VANCOMYCIN 1,000 MG in DEXTROSE 5%-WATER - 250 ML IVPB SCH (23:15)
[2018-02-11] MEDS ORDERED: VANCOMYCIN 1 GM PREMIX - 1 GM/200 ML BAG IVPB ONE (23:45)
[2018-02-11 23:56] LABS: ARTERIAL BLD GAS O2 SATURATION 99.8 % (90-98.9); ARTERIAL BLOOD GAS PCO2 34.7 mmHg (35-45); CARBOXYHEMOGLOBIN 1.3 gm% (0.5-2.0)
[2018-02-11] MEDS: levETIRAcetam 500 MG/5 ML INJECTION VIAL IVPB SCH (23:56)
[2018-02-11] MEDS ORDERED: levETIRAcetam 500 MG/5 ML INJECTION VIAL IVPB ONE (23:57)
--- NOTE | 2018-02-12 00:01 | HP ---
CHIEF COMPLAINT: unresponsiveness PCP: HISTORY OF PRESENT ILLNESS: Patient is a 62 year old female with past medical history of chronic back pain ( on Fentanyl patch, gabapentin, oxycodone), anxiety d/o, depression, and possible seizure disorder (2017), was brought in by EMS after she was found unresponsive, with the fentanyl patch in her mouth. Patient was last seen normal by her grand daughter at about 10am this morning. At 4pm, she was found by the daughter in prone position, unresponsive, and when the daughter tried to lift her up, she noted the Fentanyl patch in the patient's mouth. According to the daughter, she asked her friend to immediately call 911, while she was "waiting in the closet looking at pictures". It is unclear, however, why EMS arrived at the scene at 7pm. Upon arrival of the EMS, patient was unresponsive, pupils dilated, they gave her 6doses of Narcan. Patient remained unresponsive and they decided to intubate the patient. Upon arrival at the ED, patient had episodes vomiting and loose watery stools. ER course was notable for: (1)WBC 13.5, BUN 20, Cr 2.5, Lactic acid 7.8, AST 1201, ALT 687 (2) (3) Recent Travel:denies any recent travel PAST MEDICAL HISTORY: Chronic back pain Anxiety, panic attacks Depression ?Seizure disorder PAST SURGICAL HISTORY: Appendectomy ORIF, R tibia herniated disc repair Social History: Smokin sticks per day Alcohol:denies ETOH use Drugs: denies illicit drug use Family History: Allergies lactose Adverse Reaction (Unknown, Verified 02/11/18 21:25) HOME MEDICATIONS: Home Medications Medication Instructions Recorded Carisoprodol [Soma] 0 mg PO DAILY 12/17/16 Citalopram Hydrobromide [Celexa -] 10 mg PO DAILY #14 tablet 06/09/17 Acetaminophen [Tylenol .Regular 650 mg PO Q4H PRN tablet 06/12/17 Strength -] Calcium 500Mg/Vit-D 200 Units 1 tab PO BID tab 06/12/17 [Os-Romel 500+D -] FENTANYL 75mcg PATCH [DURAGESIC 1 patch TD Q72H patch.td72 MDD 1 06/12/17 75mcg PATCH -] Fentanyl Patch Waste [Duragesic 1 each TD PRN PRN each 06/12/17 Patch Waste] Ferrous Sulfate [Feosol] 325 mg PO BIDWM ud 06/12/17 Gabapentin [Neurontin -] 300 mg PO BID capsule 06/12/17 Multivitamins [Multivit ([facility] 1 tab PO DAILY tab 06/12/17 Formulary)] oxyCODONE HCL [Roxicodone -] 10 mg PO Q4H PRN #18 tablet MDD 60 06/12/17 REVIEW OF SYSTEMS CONSTITUTIONAL: Absent: fever, chills, diaphoresis, generalized weakness, malaise, loss of appetite, weight change HEENT: Absent: rhinorrhea, nasal congestion, throat pain, throat swelling, difficulty swallowing, mouth swelling, ear pain, eye pain, visual changes CARDIOVASCULAR: Absent: chest pain, syncope, palpitations, irregular heart rate, lightheadedness , peripheral edema RESPIRATORY: Absent: cough, shortness of breath, dyspnea with exertion, orthopnea, wheezing, stridor, hemoptysis GASTROINTESTINAL: Absent: abdominal pain, abdominal distension, nausea, vomiting, diarrhea, constipation, melena, hematochezia GENITOURINARY: Absent: dysuria, frequency, urgency, hesitancy, hematuria, flank pain, genital pain MUSCULOSKELETAL: Absent: myalgia, arthralgia, joint swelling, back pain, neck pain SKIN: Absent: rash, itching, pallor HEMATOLOGIC/IMMUNOLOGIC: Absent: easy bleeding, easy bruising, lymphadenopathy, frequent infections ENDOCRINE: Absent: unexplained weight gain, unexplained weight loss, heat intolerance, cold intolerance NEUROLOGIC: mental status changes Absent: headache, focal weakness or paresthesias, dizziness, unsteady gait, seizure, bladder or bowel incontinence PSYCHIATRIC: Absent: anxiety, depression, suicidal or homicidal ideation, hallucinations. PHYSICAL EXAMINATION Vital Signs - 24 hr 02/11/18 02/11/18 02/11/18 18:59 19:00 19:27 Temperature 99.3 F 99.3 F Pulse Rate 99 H Pulse Rate [ 91 H Right Radial] Respiratory 29 H Rate Blood Pressure 86/45 Blood Pressure 120/78 [Right Arm] O2 Sat by Pulse 73 L Oximetry (%) 02/11/18 02/11/18 02/11/18 19:45 19:51 19:58 Temperature Pulse Rate Pulse Rate [ 89 88 Right Radial] Respiratory 26 H 26 H 25 H Rate Blood Pressure Blood Pressure 115/83 103/78 [Right Arm] O2 Sat by Pulse Oximetry (%) 02/11/18 02/11/18 02/11/18 20:15 20:30 21:23 Temperature Pulse Rate Pulse Rate [ 89 89 88 Right Radial] Respiratory 26 H 21 20 Rate Blood Pressure Blood Pressure 113/81 95/55 107/44 [Right Arm] O2 Sat by Pulse 70 L Oximetry (%) 02/11/18 02/11/18 02/11/18 21:26 22:18 22:57 Temperature Pulse Rate Pulse Rate [ 89 83 Right Radial] Respiratory 23 28 H 21 Rate Blood Pressure Blood Pressure 96/66 93/61 [Right Arm] O2 Sat by Pulse 100 Oximetry (%) GENERAL: unresponsive, nonverbal, does not follow commands, intubated HEAD: Normal with no signs of trauma. EYES: PERRLA, sclera anicteric, conjunctiva clear. EARS, NOSE, THROAT: Ears normal, nares patent, oropharynx clear without exudates. Moist mucous membranes. NECK: Normal range of motion, supple without lymphadenopathy, JVD, or masses. LUNGS: +crackles b/l, no use of accessory muscles HEART: Regular rate and rhythm, normal S1 and S2 without murmur, rub or gallop. ABDOMEN: Soft, nontender, not distended, normoactive bowel sounds. MUSCULOSKELETAL: Normal range of motion at all joints. No bony deformities or tenderness. UPPER EXTREMITIES: 2+ pulses, warm, well-perfused. No cyanosis. No clubbing. No peripheral edema. LOWER EXTREMITIES: 2+ pulses, warm, well-perfused. No calf tenderness. No peripheral edema. SKIN: Warm, dry, normal turgor, no rashes or lesions. Laboratory Results - last 24 hr 02/11/18 02/11/18 02/11/18 18:57 19:50 19:50 WBC 13.5 H RBC 4.36 Hgb 14.0 Hct 44.2 D MCV 101.3 H MCH 32.1 MCHC 31.7 L RDW 16.1 H Plt Count 235 D MPV 8.1 D Absolute Neuts (auto) 11.3 H Neutrophils % 84.1 H Lymphocytes % 10.9 Monocytes % 4.6 Eosinophils % 0.1 Basophils % 0.3 Nucleated RBC % 0 PT with INR 12.80 INR 1.13 H PTT (Actin FS) 35.5 Anticoagulation Therapy Puncture Site Patient Temperature ABG pH ABG pCO2 at Pt Temp ABG pO2 at Pt Temp ABG HCO3 ABG O2 Sat (Measured) ABG O2 Content ABG Base Excess Sukhwinder Test VBG pH POC VBG pCO2 POC VBG pO2 Mixed VBG HCO3 Carboxyhemoglobin Methemoglobin O2 Delivery Device Oxygen Flow Rate Vent Mode Vent Rate Mechanical Rate PEEP Pressure Support Vent Sodium Potassium Chloride Carbon Dioxide Anion Gap BUN Creatinine Creat Clearance w eGFR POC Glucometer 104.72123 Random Glucose Lactic Acid Calcium Total Bilirubin AST ALT Alkaline Phosphatase Troponin I Total Protein Albumin Urine Color Urine Appearance Urine pH Ur Specific [place] Urine Protein Urine Glucose (UA) Urine Ketones Urine Blood Urine Nitrite Urine Bilirubin Urine Urobilinogen Ur Leukocyte Esterase Urine WBC (Auto) Urine RBC (Auto) Urine Bacteria Urine Mucus Salicylates Opiates Screen Methadone Screen Barbiturate Screen Phencyclidine Screen Ur Amphetamines Screen MDMA (Ecstasy) Screen Benzodiazepines Screen Cocaine Screen U Marijuana (THC) Screen Alcohol, Quantitative 02/11/18 02/11/18 02/11/18 19:50 19:50 19:50 WBC RBC Hgb Hct MCV MCH MCHC RDW Plt Count MPV Absolute Neuts (auto) Neutrophils % Lymphocytes % Monocytes % Eosinophils % Basophils % Nucleated RBC % PT with INR INR PTT (Actin FS) Anticoagulation Therapy Puncture Site Patient Temperature ABG pH ABG pCO2 at Pt Temp ABG pO2 at Pt Temp ABG HCO3 ABG O2 Sat (Measured) ABG O2 Content ABG Base Excess Sukhwinder Test VBG pH 7.06 L* POC VBG pCO2 75.7 H* POC VBG pO2 25.6 L Mixed VBG HCO3 20.5 Carboxyhemoglobin Methemoglobin O2 Delivery Device Oxygen Flow Rate Vent Mode Vent Rate Mechanical Rate PEEP Pressure Support Vent Sodium 142 Potassium 6.1 H* Chloride 103 Carbon Dioxide 21 Anion Gap 18 H BUN 20 H Creatinine 2.5 H Creat Clearance w eGFR 19.45 POC Glucometer Random Glucose 78 Lactic Acid 7.8 H* Calcium 8.9 Total Bilirubin 0.4 AST 1201 H ALT 687 H Alkaline Phosphatase 127 H Troponin I Total Protein 7.0 Albumin 3.6 Urine Color Urine Appearance Urine pH Ur Specific [place] Urine Protein Urine Glucose (UA) Urine Ketones Urine Blood Urine Nitrite Urine Bilirubin Urine Urobilinogen Ur Leukocyte Esterase Urine WBC (Auto) Urine RBC (Auto) Urine Bacteria Urine Mucus Salicylates Opiates Screen Methadone Screen Barbiturate Screen Phencyclidine Screen Ur Amphetamines Screen MDMA (Ecstasy) Screen Benzodiazepines Screen Cocaine Screen U Marijuana (THC) Screen Alcohol, Quantitative 02/11/18 02/11/18 02/11/18 19:50 19:50 21:35 WBC RBC Hgb Hct MCV MCH MCHC RDW Plt Count MPV Absolute Neuts (auto) Neutrophils % Lymphocytes % Monocytes % Eosinophils % Basophils % Nucleated RBC % PT with INR INR PTT (Actin FS) Anticoagulation Therapy Puncture Site Patient Temperature ABG pH ABG pCO2 at Pt Temp ABG pO2 at Pt Temp ABG HCO3 ABG O2 Sat (Measured) ABG O2 Content ABG Base Excess Sukhwinder Test VBG pH POC VBG pCO2 POC VBG pO2 Mixed VBG HCO3 Carboxyhemoglobin Methemoglobin O2 Delivery Device Oxygen Flow Rate Vent Mode Vent Rate Mechanical Rate PEEP Pressure Support Vent Sodium Potassium Chloride Carbon Dioxide Anion Gap BUN Creatinine Creat Clearance w eGFR POC Glucometer Random Glucose Lactic Acid Calcium Total Bilirubin AST ALT Alkaline Phosphatase Troponin I 1.38 H* Total Protein Albumin Urine Color Ltyellow Urine Appearance Clear Urine pH 6.0 Ur Specific [place] 1.006 Urine Protein Negative Urine Glucose (UA) Negative Urine Ketones Negative Urine Blood 2+ H Urine Nitrite Negative Urine Bilirubin Negative Urine Urobilinogen Negative Ur Leukocyte Esterase Negative Urine WBC (Auto) None Urine RBC (Auto) <1 Urine Bacteria Rare Urine Mucus Rare Salicylates 6.0 Opiates Screen Methadone Screen Barbiturate Screen Phencyclidine Screen Ur Amphetamines Screen MDMA (Ecstasy) Screen Benzodiazepines Screen Cocaine Screen U Marijuana (THC) Screen Alcohol, Quantitative < 5.0 02/11/18 02/11/18 21:35 22:48 WBC RBC Hgb Hct MCV MCH MCHC RDW Plt Count MPV Absolute Neuts (auto) Neutrophils % Lymphocytes % Monocytes % Eosinophils % Basophils % Nucleated RBC % PT with INR INR PTT (Actin FS) Anticoagulation Therapy Cancelled Puncture Site Cancelled Patient Temperature Cancelled ABG pH Cancelled ABG pCO2 at Pt Temp Cancelled ABG pO2 at Pt Temp Cancelled ABG HCO3 Cancelled ABG O2 Sat (Measured) Cancelled ABG O2 Content Cancelled ABG Base Excess Cancelled Sukhwinder Test Cancelled VBG pH POC VBG pCO2 POC VBG pO2 Mixed VBG HCO3 Carboxyhemoglobin Cancelled Methemoglobin Cancelled O2 Delivery Device Cancelled Oxygen Flow Rate Cancelled Vent Mode Cancelled Vent Rate Cancelled Mechanical Rate Cancelled PEEP Cancelled Pressure Support Vent Cancelled Sodium Potassium Chloride Carbon Dioxide Anion Gap BUN Creatinine Creat Clearance w eGFR POC Glucometer Random Glucose Lactic Acid Calcium Total Bilirubin AST ALT Alkaline Phosphatase Troponin I Total Protein Albumin Urine Color Urine Appearance Urine pH Ur Specific [place] Urine Protein Urine Glucose (UA) Urine Ketones Urine Blood Urine Nitrite Urine Bilirubin Urine Urobilinogen Ur Leukocyte Esterase Urine WBC (Auto) Urine RBC (Auto) Urine Bacteria Urine Mucus Salicylates Opiates Screen Negative Methadone Screen Negative Barbiturate Screen Negative Phencyclidine Screen Negative Ur Amphetamines Screen Negative MDMA (Ecstasy) Screen Negative Benzodiazepines Screen Positive Cocaine Screen Negative U Marijuana (THC) Screen Negative Alcohol, Quantitative CBC, BMP 02/11/18 19:50 02/11/18 19:50 ASSESSMENT/PLAN: Patient is a 62 year old female with past medical history of chronic back pain ( on Fentanyl patch, gabapentin, oxycodone), anxiety d/o, depression, and possible seizure disorder (2016), was brought in by EMS after she was found unresponsive, with the fentanyl patch in her mouth. #Unresponsiveness: likely 2/2 Sepsis /drug overdose/ seizure /hepatic encephalopathy -Patient has leukocytosis with left shift, hyperkalemia with nonspecific ST-T wave changes, elevated BUN/Cr, elevated LFTs, lactic acid 7.8 -UA +2 blood; urine toxicology - positive BZDs -Head CT showed no gross acute intracranial pathology -CXR, chest CT, CT of abdomen/pelvis done, will await final read -IV fluids started. -repeat BMP stat to follow up hyperK after hydration. -Hepatitis serology ordered. -CPK ordered. -Vancomycin 1000mg daily and Zosyn 3.375 q8h started. -Keppra 500mg IV BID started for seizure prophylaxis. -Elevated LFTs and QUINTEN may be due to sepsis. -will trend lactate, trop, LFTs, BMP -ID consult- Dr. Colon #FEN -IV NS (0.9%) at 100ml/hr -hyperK, continuous BMP monitoring -regular diet #Prophylaxis -Heparin 5000 units sq tid #Disposition -admit to ICU -full code Visit type - Emergency Visit Emergency Visit: Yes ED Registration Date: 02/11/18 Care time: The patient presented to the Emergency Department on the above date and was hospitalized for further evaluation of their emergent condition. - New Patient This patient is new to me today: Yes Date on this admission: 02/12/18 - Critical Care Critical Care patient: No Hospitalist Screening - Colonoscopy Questionnaire Colonoscopy Questionnaire: Colonoscopy Questionnaire - Patient: 50 - 75 years old and never had a screening colonoscopy: Unknown History of colon or rectal polyps, or CA: Unknown History of IBD, Crohn's disease or UC: Unknown History of abdominal radiation therapy as a child: Unknown - Relative: 1 with colon or rectal CA, or polyps at age 60 or younger: Unknown Colon or rectal CA diagnosed at age 45 or younger: Unknown Multiple relatives with colon or rectal CA: Unknown - Outcome: Screening Result: Negative Screen
[2018-02-12 00:05] LABS: ALLENS TEST POSITIVE
[2018-02-12 00:09] LABS: ARTERIAL BLOOD GAS pH 7.24 (7.35-7.45)
[2018-02-12 00:10] LABS: ARTERIAL BLOOD GAS BASE EXCESS -11.8 meq/l (-2-2)
[2018-02-12] MEDS ORDERED: ONDANSETRON 4 MG/2 ML VIAL IVPB PRN (00:21)
--- NOTE | 2018-02-12 00:23 | CONSULT ---
Consultation: REQUESTING PROVIDER: CONSULT REQUEST: ICU HISTORY OF PRESENT ILLNESS: The patient is a 62 year old female with a PMH of opioid dependency, chronic back pain (on Fentanyl patch) anxiety, depression, suspected seizure disorder, was brought in by EMS after she was found unresponsive at home with Fentanyl path in her mouth. Upon arrival of the EMS, she was given 6 doses of Narcan, remained unresponsive, subsequently intubated. In ED she had several episodes of watery stools and NBNB emesis. She was found to have VBG 7.06, pC02 75.7, p02 25.6, labs: 13.5, Na 144, K 6.1, BUN 20, Cr 2.5, LA 7.8, AST 1201, ALT 687 , LA 7.8, troponin 1.38. When she arrived to ICU she was extubated, lethargic, AAOx2, BP 113/71, HR 88, on 4 L NA. labs: LA improved to 3.2, K 5.2, ekg sinus, no acute isidoro/std. No more eposodes of emesis but had loose BM with visible blood. History was taken from medical documentation as the patient was not answering any of my questions. REVIEW OF SYSTEMS: N/A PHYSICAL EXAMINATION Vital Signs - 24 hr 02/11/18 02/11/18 02/11/18 18:59 19:00 19:27 Temperature 99.3 F 99.3 F Pulse Rate 99 H Pulse Rate [ 91 H Right Radial] Respiratory 29 H Rate Blood Pressure 86/45 Blood Pressure 120/78 [Right Arm] O2 Sat by Pulse 73 L Oximetry (%) 02/11/18 02/11/18 02/11/18 19:45 19:51 19:58 Temperature Pulse Rate Pulse Rate [ 89 88 Right Radial] Respiratory 26 H 26 H 25 H Rate Blood Pressure Blood Pressure 115/83 103/78 [Right Arm] O2 Sat by Pulse Oximetry (%) 02/11/18 02/11/18 02/11/18 20:15 20:30 21:23 Temperature Pulse Rate Pulse Rate [ 89 89 88 Right Radial] Respiratory 26 H 21 20 Rate Blood Pressure Blood Pressure 113/81 95/55 107/44 [Right Arm] O2 Sat by Pulse 70 L Oximetry (%) 08/23/18 08/23/18 08/23/18 21:26 22:00 22:18 Temperature Pulse Rate Pulse Rate [ 89 85 Right Radial] Respiratory 23 20 28 H Rate Blood Pressure Blood Pressure 96/66 87/62 [Right Arm] O2 Sat by Pulse 100 Oximetry (%) 02/11/18 22:57 Temperature Pulse Rate Pulse Rate [ 83 Right Radial] Respiratory 21 Rate Blood Pressure Blood Pressure 93/61 [Right Arm] O2 Sat by Pulse 100 Oximetry (%) GENERAL: Awake, AAo HEAD: Normal with no signs of trauma. EYES: Pupils equal, round and reactive to light, extraocular movements intact, sclera anicteric, conjunctiva clear. No lid lag. EARS, NOSE, THROAT: Ears normal, nares patent, oropharynx clear without exudates. Moist mucous membranes. NECK: Normal range of motion, supple without lymphadenopathy, JVD, or masses. LUNGS: Breath sounds equal, clear to auscultation bilaterally. No wheezes, and no crackles. No accessory muscle use. HEART: Regular rate and rhythm, normal S1 and S2 without murmur, rub or gallop. ABDOMEN: Soft, nontender, not distended, normoactive bowel sounds, no guarding, no rebound, no masses. No hepatomegaly or splenomegaly. MUSCULOSKELETAL: Normal range of motion at all joints. No bony deformities or tenderness. No CVA tenderness. UPPER EXTREMITIES: 2+ pulses, warm, well-perfused. No cyanosis. No clubbing. Cap refill <2 seconds. No peripheral edema. LOWER EXTREMITIES: 2+ pulses, warm, well-perfused. No calf tenderness. No peripheral edema. NEUROLOGICAL: Cranial nerves II-XII intact. Normal speech. Normal gait. PSYCHIATRIC: Cooperative. Good eye contact. Appropriate mood and affect. SKIN: Warm, dry, normal turgor, no rashes or lesions noted. Laboratory Results - last 24 hr 02/11/18 02/11/18 02/11/18 18:57 19:50 19:50 WBC 13.5 H RBC 4.36 Hgb 14.0 Hct 44.2 D MCV 101.3 H MCH 32.1 MCHC 31.7 L RDW 16.1 H Plt Count 235 D MPV 8.1 D Absolute Neuts (auto) 11.3 H Neutrophils % 84.1 H Lymphocytes % 10.9 Monocytes % 4.6 Eosinophils % 0.1 Basophils % 0.3 Nucleated RBC % 0 PT with INR 12.80 INR 1.13 H PTT (Actin FS) 35.5 Anticoagulation Therapy Puncture Site Patient Temperature ABG pH ABG pCO2 at Pt Temp ABG pO2 at Pt Temp ABG HCO3 ABG O2 Sat (Measured) ABG O2 Content ABG Base Excess Sukhwinder Test VBG pH POC VBG pCO2 POC VBG pO2 Mixed VBG HCO3 Carboxyhemoglobin Methemoglobin O2 Delivery Device Oxygen Flow Rate Vent Mode Vent Rate Mechanical Rate PEEP Pressure Support Vent Sodium Potassium Chloride Carbon Dioxide Anion Gap BUN Creatinine Creat Clearance w eGFR POC Glucometer [id number] Random Glucose Lactic Acid Calcium Total Bilirubin AST ALT Alkaline Phosphatase Troponin I Total Protein Albumin Urine Color Urine Appearance Urine pH Ur Specific [place] Urine Protein Urine Glucose (UA) Urine Ketones Urine Blood Urine Nitrite Urine Bilirubin Urine Urobilinogen Ur Leukocyte Esterase Urine WBC (Auto) Urine RBC (Auto) Urine Bacteria Urine Mucus Salicylates Opiates Screen Methadone Screen Barbiturate Screen Phencyclidine Screen Ur Amphetamines Screen MDMA (Ecstasy) Screen Benzodiazepines Screen Cocaine Screen U Marijuana (THC) Screen Alcohol, Quantitative 02/11/18 02/11/18 02/11/18 19:50 19:50 19:50 WBC RBC Hgb Hct MCV MCH MCHC RDW Plt Count MPV Absolute Neuts (auto) Neutrophils % Lymphocytes % Monocytes % Eosinophils % Basophils % Nucleated RBC % PT with INR INR PTT (Actin FS) Anticoagulation Therapy Puncture Site Patient Temperature ABG pH ABG pCO2 at Pt Temp ABG pO2 at Pt Temp ABG HCO3 ABG O2 Sat (Measured) ABG O2 Content ABG Base Excess Sukhwinder Test VBG pH 7.06 L* POC VBG pCO2 75.7 H* POC VBG pO2 25.6 L Mixed VBG HCO3 20.5 Carboxyhemoglobin Methemoglobin O2 Delivery Device Oxygen Flow Rate Vent Mode Vent Rate Mechanical Rate PEEP Pressure Support Vent Sodium 142 Potassium 6.1 H* Chloride 103 Carbon Dioxide 21 Anion Gap 18 H BUN 20 H Creatinine 2.5 H Creat Clearance w eGFR 19.45 POC Glucometer Random Glucose 78 Lactic Acid 7.8 H* Calcium 8.9 Total Bilirubin 0.4 AST 1201 H ALT 687 H Alkaline Phosphatase 127 H Troponin I Total Protein 7.0 Albumin 3.6 Urine Color Urine Appearance Urine pH Ur Specific [place] Urine Protein Urine Glucose (UA) Urine Ketones Urine Blood Urine Nitrite Urine Bilirubin Urine Urobilinogen Ur Leukocyte Esterase Urine WBC (Auto) Urine RBC (Auto) Urine Bacteria Urine Mucus Salicylates Opiates Screen Methadone Screen Barbiturate Screen Phencyclidine Screen Ur Amphetamines Screen MDMA (Ecstasy) Screen Benzodiazepines Screen Cocaine Screen U Marijuana (THC) Screen Alcohol, Quantitative 02/11/18 02/11/18 02/11/18 19:50 19:50 21:35 WBC RBC Hgb Hct MCV MCH MCHC RDW Plt Count MPV Absolute Neuts (auto) Neutrophils % Lymphocytes % Monocytes % Eosinophils % Basophils % Nucleated RBC % PT with INR INR PTT (Actin FS) Anticoagulation Therapy Puncture Site Patient Temperature ABG pH ABG pCO2 at Pt Temp ABG pO2 at Pt Temp ABG HCO3 ABG O2 Sat (Measured) ABG O2 Content ABG Base Excess Sukhwinder Test VBG pH POC VBG pCO2 POC VBG pO2 Mixed VBG HCO3 Carboxyhemoglobin Methemoglobin O2 Delivery Device Oxygen Flow Rate Vent Mode Vent Rate Mechanical Rate PEEP Pressure Support Vent Sodium Potassium Chloride Carbon Dioxide Anion Gap BUN Creatinine Creat Clearance w eGFR POC Glucometer Random Glucose Lactic Acid Calcium Total Bilirubin AST ALT Alkaline Phosphatase Troponin I 1.38 H* Total Protein Albumin Urine Color Ltyellow Urine Appearance Clear Urine pH 6.0 Ur Specific [place] 1.006 Urine Protein Negative Urine Glucose (UA) Negative Urine Ketones Negative Urine Blood 2+ H Urine Nitrite Negative Urine Bilirubin Negative Urine Urobilinogen Negative Ur Leukocyte Esterase Negative Urine WBC (Auto) None Urine RBC (Auto) <1 Urine Bacteria Rare Urine Mucus Rare Salicylates 6.0 Opiates Screen Methadone Screen Barbiturate Screen Phencyclidine Screen Ur Amphetamines Screen MDMA (Ecstasy) Screen Benzodiazepines Screen Cocaine Screen U Marijuana (THC) Screen Alcohol, Quantitative < 5.0 02/11/18 02/11/18 02/11/18 21:35 22:48 23:45 WBC RBC Hgb Hct MCV MCH MCHC RDW Plt Count MPV Absolute Neuts (auto) Neutrophils % Lymphocytes % Monocytes % Eosinophils % Basophils % Nucleated RBC % PT with INR INR PTT (Actin FS) Anticoagulation Therapy Cancelled No Result Required. Puncture Site Cancelled Right brachial Patient Temperature Cancelled ABG pH Cancelled 7.24 L* ABG pCO2 at Pt Temp Cancelled 34.7 L ABG pO2 at Pt Temp Cancelled 415.0 H* ABG HCO3 Cancelled 14.4 L* ABG O2 Sat (Measured) Cancelled 99.8 H* ABG O2 Content Cancelled 18.1 ABG Base Excess Cancelled -11.8 L* Sukhwinder Test Cancelled Positive VBG pH POC VBG pCO2 POC VBG pO2 Mixed VBG HCO3 Carboxyhemoglobin Cancelled 1.3 Methemoglobin Cancelled 1.7 H O2 Delivery Device Cancelled Vent Oxygen Flow Rate Cancelled 100% Vent Mode Cancelled No Result Required. Vent Rate Cancelled 12 Mechanical Rate Cancelled No Result Required. PEEP Cancelled 5.0 Pressure Support Vent Cancelled No Result Required. Sodium Potassium Chloride Carbon Dioxide Anion Gap BUN Creatinine Creat Clearance w eGFR POC Glucometer Random Glucose Lactic Acid Calcium Total Bilirubin AST ALT Alkaline Phosphatase Troponin I Total Protein Albumin Urine Color Urine Appearance Urine pH Ur Specific [place] Urine Protein Urine Glucose (UA) Urine Ketones Urine Blood Urine Nitrite Urine Bilirubin Urine Urobilinogen Ur Leukocyte Esterase Urine WBC (Auto) Urine RBC (Auto) Urine Bacteria Urine Mucus Salicylates Opiates Screen Negative Methadone Screen Negative Barbiturate Screen Negative Phencyclidine Screen Negative Ur Amphetamines Screen Negative MDMA (Ecstasy) Screen Negative Benzodiazepines Screen Positive Cocaine Screen Negative U Marijuana (THC) Screen Negative Alcohol, Quantitative Active Medications Generic Name Dose Route Start Last Admin Trade Name Freq PRN Reason Stop Dose Admin Chlorhexidine Gluconate 1 applic 02/12/18 22:00 Hibiclens For Decolonization - TP HS BRANDON Heparin Sodium (Porcine) 5,000 unit 02/12/18 06:00 Heparin - SQ TID BRANDON Vancomycin HCl 1,000 mg/ 250 mls @ 200 mls/hr 02/11/18 23:15 Dextrose IVPB Q24H [facility] Protocol Piperacillin Sod/Tazobactam 50 mls @ 100 mls/hr 02/12/18 10:00 Sod 3.375 gm/ Dextrose IVPB BID BRANDON Protocol Sodium Chloride 1,000 mls @ 100 mls/hr 02/11/18 23:45 02/11/18 23:56 Normal Saline - IV 100 mls/hr ASDIR BRANDON Administration Vancomycin HCl 1 gm in 200 mls @ 133.333 mls/hr 02/11/18 23:45 Vancomycin 1 Gm Premix - IVPB 02/12/18 01:14 ONCE ONE Levetiracetam 500 mg 02/11/18 23:15 02/11/18 23:56 Keppra Injection - IVPB 500 mg BID BRANDON Administration Mupirocin 1 applic 02/12/18 10:00 Bactroban Ointment (For Decolonization) - NS 02/17/18 09:59 BID BRANDON Ondansetron HCl 4 mg 02/12/18 00:21 Zofran Injection IVPB Q6H PRN NAUSEA Pantoprazole Sodium 40 mg 02/12/18 10:00 Protonix Iv IVPUSH DAILY [facility] ASSESSMENT/PLAN: The patient is a 62 year old female with a PMH of chronic back pain (on Fentanyl patch) anxiety, depression, suspected seizure disorder, was brought in by EMS after she was found unresponsive at home with Fentanyl path in her mouth. She is admitted for AMS, severe sepsis, elevated troponin, possible seizure. Extubated and transferred to ICU for monitoring. AMS Acute hypoxic respiratory failure Severe sepsis lactic acidosis elevated troponin QUINTEN transaminitis chronic back pain h/o of fentanyl overuse possible history of seizure disorder vomiting and diarrhea depression anxiety Plan: the patient AMS is possibly related to sepsis, hepatic encepalopathy,but also may be due to drug overdose(positive for benzo only), r/o seizure she had imaging done: CXR wnl, CT head no acute pathology, CT abdomen and pelvis ; r/o colitis started sepsis protocol continue Vancomycin and Zosyn zontinue NS at 100 cc/hr for N/V given Zofran, Protonix, stool cultures ordered f/u hepatitis panel, folic acid, B12, electrolytes in AM Keppra 500 mg BId started for seizure PPX f/u troponins and ekg in AM f/u ID recommendations monitor for sx of benzo withdrawal Dispo: We will continue to follow the patient. Thank you for this consultative opportunity. Problem List - Problems (1) Endotracheally intubated Code(s): Z97.8 - PRESENCE OF OTHER SPECIFIED DEVICES (2) Overdose Code(s): T50.901A - POISONING BY UNSP DRUG/MEDS/BIOL SUBST, ACCIDENTAL, INIT Qualifiers: Encounter type: initial encounter Injury intent: undetermined intent Qualified Code(s): T50.904A - Poisoning by unspecified drugs, medicaments and biological substances, undetermined, initial encounter (3) Substance induced mood disorder Code(s): F19.94 - OTH PSYCHOACTIVE SUBSTANCE USE, UNSP W MOOD DISORDER (4) Anxiety Code(s): F41.9 - ANXIETY DISORDER, UNSPECIFIED (5) Anxiety attack Code(s): F41.0 - PANIC DISORDER [EPISODIC PAROXYSMAL ANXIETY] (6) Chronic pain Code(s): G89.29 - OTHER CHRONIC PAIN Qualifiers: Chronic pain type: due to trauma Qualified Code(s): G89.21 - Chronic pain due to trauma (7) Opiate dependence Code(s): F11.20 - OPIOID DEPENDENCE, UNCOMPLICATED (8) New onset seizure Code(s): R56.9 - UNSPECIFIED CONVULSIONS Visit type - Emergency Visit Emergency Visit: Yes ED Registration Date: 02/11/18 Care time: The patient presented to the Emergency Department on the above date and was hospitalized for further evaluation of their emergent condition. - New Patient This patient is new to me today: Yes Date on this admission: 02/12/18 - Critical Care Critical Care patient: Yes Total Critical Care Time (in minutes): 50 Critical Care Statement: The care of this patient involved high complexity decision making to prevent further life threatening deterioration of the patient 's condition and/or to evaluate & treat vital organ system(s) failure or risk of failure.
[2018-02-12 00:25] LABS: ANION GAP 14 MMOL/L (8-16); BLOOD UREA NITROGEN 23 mg/dL (7-18); CHLORIDE 114 mmol/L (98-107); CO2 16 mmol/L (21-32); CREATININE 2.5 mg/dL (0.55-1.02); GLUCOSE,RANDOM 99 mg/dL (74-106); SODIUM 144 mmol/L (136-145)
[2018-02-12 00:33] LABS: POTASSIUM 5.2 mmol/L (3.5-5.1)
[2018-02-12 06:06] LABS: HEMATOCRIT 40.3 % (32.4-45.2); HEMOGLOBIN 12.5 GM/dL (10.7-15.3); MCH 31.3 pg (25.7-33.7); MCHC 31.1 g/dl (32.0-36.0); MEAN CELL VOLUME 100.5 fl (80-96); MEAN PLT VOLUME 8.7 fl (7.5-11.1); PLATELET COUNT 151 K/MM3 (134-434); RDW 15.9 % (11.6-15.6); WHITE BLOOD COUNT 14.9 K/mm3 (4.0-10.0)
[2018-02-12 06:40] LABS: CHLORIDE 112 mmol/L (98-107); SODIUM 142 mmol/L (136-145)
[2018-02-12] MEDS: HEPARIN NA (PORCINE) 5,000 UNITS/ML 1ML VIAL SQ SCH ×3 (06:47→21:12)
[2018-02-12 07:06] LABS: ALBUMIN 2.7 g/dl (3.4-5.0); ALK PHOS 103 U/L (45-117); ANION GAP 10 MMOL/L (8-16); BILIRUBIN,TOTAL 0.3 mg/dL (0.2-1.0); BLOOD UREA NITROGEN 26 mg/dL (7-18); CO2 20 mmol/L (21-32); CREATININE 2.7 mg/dL (0.55-1.02); GLUCOSE,RANDOM 127 mg/dL (74-106); MAGNESIUM 1.8 mg/dL (1.8-2.4); PHOSPHOROUS 6.1 mg/dL (2.5-4.9); TOT PROT 5.4 g/dl (6.4-8.2)
[2018-02-12 07:09] LABS: SGOT/AST 5382 U/L (15-37); SGPT/ALT 1994 U/L (12-78)
[2018-02-12] MEDS ORDERED: SODIUM CHLORIDE 0.9% 500 ML INFUS.BAG IV ONE (07:26)
[2018-02-12] MEDS ORDERED: DEXTROSE 50%-WATER - 25 GM/50 ML VIAL IVPUSH ONE (07:32)
[2018-02-12] MEDS ORDERED: CALCIUM GLUCONATE 10% - 1,000 MG/10 ML VIAL IVPB ONE (07:32)
[2018-02-12] MEDS ORDERED: INSULIN REGULAR HUMAN 100 UNITS/ML *VIAL IVPUSH ONE (07:33)
[2018-02-12] MEDS ORDERED: ASPIRIN 300 MG SUPP.RECT PR ONE (08:11)
[2018-02-12] MEDS ORDERED: DEXTROSE 50%-WATER 25 GM/50 ML DISP.SYRIN ONE (08:25)
[2018-02-12] MEDS ORDERED: INSULIN REGULAR HUMAN 100 UNITS/ML *VIAL ONE (08:26)
[2018-02-12] MEDS ORDERED: SODIUM BICARBONATE 8.4% 50 MEQ/50 ML DISP.SYRIN IVPUSH ONE (08:44)
[2018-02-12] MEDS ORDERED: ALBUTEROL SO4 0.5 % INH SOLN 2.5 MG/0.5 ML VIAL.NEB. NEB PRN (09:54)
[2018-02-12] MEDS ORDERED: PIPERACILLIN/TAZOB 3.375 GM 3.375 GM in DEXTROSE 5%-WATER - 50 ML IVPB SCH (10:00)
[2018-02-12] MEDS ORDERED: ALBUTEROL SO4 0.5 % INH SOLN 2.5 MG/0.5 ML VIAL.NEB. NEB ONE (10:00)
[2018-02-12] MEDS: PANTOPRAZOLE SODIUM 40 MG VIAL IVPUSH SCH (10:11)
[2018-02-12] MEDS: MUPIROCIN 2% TOPICAL OINTMENT FOR DECOLONIZATION NS SCH ×2 (10:11→21:13)
[2018-02-12] MEDS: levETIRAcetam 500 MG/5 ML INJECTION VIAL IVPB SCH ×2 (10:11→21:13)
--- NOTE | 2018-02-12 10:12 | CON.CARD ---
Consult Consult Specialty:: Cardiology Referred by:: ICU Reason for Consultation:: elevated troponin - History of Present Illness Chief Complaint: unresponsive History of Present Illness: 62F h/o opiod dependency, back pain using fentanyl patch, anxiety, seizure disorder. Found unresponsive at home, EMS gave narcan x 6, was intubated. In ED had diarrhea, emesis as well multiple lab abnormalities. K6.1, lactate 7.8, Cr 2.5, AST 1201, ALT 687, trop 1.38, [place] [address], CKMB 158.7 index 1.4. EKG, CXR , CT head unremarkable. Was transferred to ICU, started on broad spectrum abx, IVF. tox screen pos for benzos. Has history of prior drug overdose. Trop this AM 8. this morning patient complains of being tired, no chest pain, dyspnea, orthopnea. Asking for soda, says she is not sure why she is here. - Past Medical History ...: No Musculoskeletal: Yes: Chronic low back pain - Alcohol/Substance Use Hx Alcohol Use: No - Smoking History Smoking history: Unknown if ever smoked Have you smoked in the past 12 months: Yes Aproximately how many cigarettes per day: 7 - Social History Usual Living Arrangement: Other (daughter and grand daughter.) ADL: Family Assistance History of Recent Travel: No Home Medications - Allergies Allergies/Adverse Reactions: Allergies Allergy/AdvReac Type Severity Reaction Status Date / Time lactose AdvReac Unknown Verified 02/11/18 21:25 - Home Medications Home Medications: Ambulatory Orders Carisoprodol [Soma] 0 mg PO DAILY 12/17/16 Citalopram Hydrobromide [Celexa -] 10 mg PO DAILY #14 tablet 06/09/17 Acetaminophen [Tylenol .Regular Strength -] 650 mg PO Q4H PRN tablet 06/12/17 Calcium 500Mg/Vit-D 200 Units [Os-Romel 500+D -] 1 tab PO BID tab 06/12/17 FENTANYL 75mcg PATCH [DURAGESIC 75mcg PATCH -] 1 patch TD Q72H patch.td72 MDD 1 06/12/17 Fentanyl Patch Waste [Duragesic Patch Waste] 1 each TD PRN PRN each 06/12/17 Ferrous Sulfate [Feosol] 325 mg PO BIDWM ud 06/12/17 Gabapentin [Neurontin -] 300 mg PO BID capsule 06/12/17 Multivitamins [Multivit ([facility] Formulary)] 1 tab PO DAILY tab 06/12/17 oxyCODONE HCL [Roxicodone -] 10 mg PO Q4H PRN #18 tablet MDD 60 06/12/17 Review of Systems - Review of Systems Constitutional: reports: Lethargy Eyes: reports: No Symptoms HENT: reports: No Symptoms Neck: reports: No Symptoms Cardiovascular: reports: No Symptoms Respiratory: reports: No Symptoms Gastrointestinal: reports: Diarrhea, Vomiting Genitourinary: reports: No Symptoms Musculoskeletal: reports: No Symptoms Integumentary: reports: No Symptoms Neurological: reports: No Symptoms Endocrine: reports: No Symptoms Hematology/Lymphatic: reports: No Symptoms Psychiatric: reports: No Symptoms Vital Signs: Vital Signs Temperature 99.2 F 02/12/18 06:00 Pulse Rate 86 02/12/18 08:41 Respiratory Rate 18 02/12/18 08:41 Blood Pressure 120/73 02/12/18 08:41 O2 Sat by Pulse Oximetry (%) 100 02/11/18 22:57 Constitutional: Yes: No Distress, Calm Eyes: Yes: Conjunctiva Clear, EOM Intact HENT: Yes: Atraumatic, Normocephalic Neck: Yes: Supple Respiratory: Yes: Regular, CTA Bilaterally Gastrointestinal: Yes: Normal Bowel Sounds, Soft Renal/: Yes: [place] Present Cardiovascular: Yes: Regular Rate and Rhythm JVD: No Heart Sounds: Yes: S1, S2 Edema: No Peripheral Pulses: 2+ Left Doralis Pedis, 2+ Right Dorsalis Pedis Neurological: Yes: Alert, Confusion, Weakness Psychiatric: Yes: Alert - Other Data Labs, Other Data: CBC, BMP 02/12/18 05:30 02/12/18 05:30 INR, PTT INR 1.13 (0.83-1.09) H 02/11/18 19:50 Troponin, BNP 02/11/18 02/12/18 19:50 05:30 Troponin I 1.38 H* 8.15 H* Troponin, BNP 02/11/18 02/12/18 19:50 05:30 Troponin I 1.38 H* 8.15 H* Assessment/Plan EK/23 sinus, nonspecific T wave changes. 02/12 sinus, TWI III, V1-V3 Tele: sinus 80s-90s CXR: no acute process 62F h/o opiod dependency, back pain using fentanyl patch, anxiety, seizure disorder p/w unresponsiveness, trop elevated, overdose trop elevation, NSTEMI - likely in setting of overdose, multiple metabolic abnormalities - received aspirin 162 mg - noted to have bloody BM, blood on rectal exam per primary team - recommend medical management, however defer heparin gtt, plavix due to GI bleeding, no statin due to elevated LFTs; would start aspirin 81 mg daily if possible - echo pending - will consider ischemic testing when acute issues have resolved unresponsiveness, elevated LFTs, QUINTEN - likely in setting of overdose (fentanyl in mouth, benzo+ in urine), possible sepsis, manage per ICU team - on IV abx, IV fluids - lactate improving leukocytosis - IV abx per primary team estimated time spent in chart review, exam, and formulating mgmt plan of potentially life threatening medical problems = 35 min
[2018-02-12] MEDS ORDERED: ALBUTEROL SO4 0.083% IH SOL 2.5 MG/3 ML VIAL.NEB. NEB ONE (11:17)
--- NOTE | 2018-02-12 11:57 | EKG ---
Test Reason : Blood Pressure : / mmHG Vent. Rate : 088 BPM Atrial Rate : 088 BPM P-R Int : 106 ms QRS Dur : 066 ms QT Int : 370 ms P-R-T Axes : 064 079 055 degrees QTc Int : 447 ms SINUS RHYTHM WITH SHORT VA ABNORMAL ECG WHEN COMPARED WITH ECG OF 11-FEB-2018 20:40, INVERTED T WAVES HAVE REPLACED NONSPECIFIC T WAVE ABNORMALITY IN ANTERIOR LEADS Confirmed by RORY DENISE, KANA ([id number]) on 02/12/2018 11:56:57 AM Referred By: YVETTE SAAVEDRA DR Confirmed By:KANA VALADEZ MD
[2018-02-12] MEDS ORDERED: DEXTROSE 5%-0.45% SALINE 1,000 ML IV SCH ×2 (12:45→15:19)
--- NOTE | 2018-02-12 13:00 | PN ---
Teaching Attending Note Name of Resident: Melissa Stringer ATTENDING PHYSICIAN STATEMENT I saw and evaluated the patient. I reviewed the resident's note and discussed the case with the resident. I agree with the resident's findings and plan as documented. SUBJECTIVE: Patient seen and examined in the ICU. Somnolent but arousable. Confused and not able to answer questions appropriately. ECHO being performed. Concern for new right sided weakness. Intake & Output 02/09/18 02/10/18 02/11/18 02/12/18 23:59 23:59 23:59 23:59 Intake Total 1725 Output Total 50 Balance 1675 Weight 150 lb 123 lb 5 oz Last Vital Signs Temp Pulse Resp BP Pulse Ox 99 F 86 18 115/50 96 02/12/18 10:00 02/12/18 12:00 02/12/18 12:00 02/12/18 12:00 02/12/18 09:00 Active Medications Albuterol Sulfate (Ventolin 0.5% -) 1 amp NEB Q4H PRN PRN Reason: SHORT OF BREATH/WHEEZING Chlorhexidine Gluconate (Hibiclens For Decolonization -) 1 applic TP HS [facility] Heparin Sodium (Porcine) (Heparin -) 5,000 unit SQ TID [facility] Last Admin: 02/12/18 06:47 Dose: 5,000 unit Piperacillin Sod/Tazobactam (Sod 3.375 gm/ Dextrose) 50 mls @ 100 mls/hr IVPB BID [facility]; Protocol Dextrose/Sodium Chloride (D5-1/2ns -) 1,000 mls @ 100 mls/hr IV ASDIR BRANDON Levetiracetam (Keppra Injection -) 500 mg IVPB BID [facility] Last Admin: 02/12/18 10:11 Dose: 500 mg Mupirocin (Bactroban Ointment (For Decolonization) -) 1 applic NS BID [facility] Stop: 02/17/18 09:59 Last Admin: 02/12/18 10:11 Dose: 1 applic Ondansetron HCl (Zofran Injection) 4 mg IVPB Q6H PRN PRN Reason: NAUSEA Pantoprazole Sodium (Protonix Iv) 40 mg IVPUSH DAILY [facility] Last Admin: 02/12/18 10:11 Dose: 40 mg GENERAL: Somnolent, NAD HEAD: Normal with no signs of trauma. EYES: Pupils equal, round and reactive to light, extraocular movements intact, sclera anicteric, conjunctiva clear. No lid lag. EARS, NOSE, THROAT: Ears normal, nares patent, oropharynx clear without exudates. Moist mucous membranes. NECK: Normal range of motion, supple without lymphadenopathy, JVD, or masses. LUNGS: Breath sounds equal, clear to auscultation bilaterally. No wheezes, and no crackles. No accessory muscle use. HEART: Regular rate and rhythm, normal S1 and S2 without murmur, rub or gallop. ABDOMEN: Soft, nontender, not distended, normoactive bowel sounds, no guarding, no rebound, no masses. No hepatomegaly or splenomegaly. MUSCULOSKELETAL: Normal range of motion at all joints. No bony deformities or tenderness. No CVA tenderness. UPPER EXTREMITIES: 2+ pulses, warm, well-perfused. No cyanosis. No clubbing. Cap refill <2 seconds. No peripheral edema. LOWER EXTREMITIES: 2+ pulses, warm, well-perfused. No calf tenderness. No peripheral edema. NEUROLOGICAL: (?) new right weakness. SKIN: Warm, dry, normal turgor, no rashes or lesions noted. Laboratory Results - last 24 hr 02/11/18 02/11/18 02/11/18 18:57 19:50 19:50 WBC 13.5 H RBC 4.36 Hgb 14.0 Hct 44.2 D MCV 101.3 H MCH 32.1 MCHC 31.7 L RDW 16.1 H Plt Count 235 D MPV 8.1 D Absolute Neuts (auto) 11.3 H Neutrophils % 84.1 H Lymphocytes % 10.9 Monocytes % 4.6 Eosinophils % 0.1 Basophils % 0.3 Nucleated RBC % 0 PT with INR 12.80 INR 1.13 H PTT (Actin FS) 35.5 Anticoagulation Therapy Puncture Site Patient Temperature ABG pH ABG pCO2 at Pt Temp ABG pO2 at Pt Temp ABG HCO3 ABG O2 Sat (Measured) ABG O2 Content ABG Base Excess Sukhwinder Test VBG pH POC VBG pCO2 POC VBG pO2 Mixed VBG HCO3 Carboxyhemoglobin Methemoglobin O2 Delivery Device Oxygen Flow Rate Vent Mode Vent Rate Mechanical Rate PEEP Pressure Support Vent Sodium Potassium Chloride Carbon Dioxide Anion Gap BUN Creatinine Creat Clearance w eGFR POC Glucometer [id number] Random Glucose Lactic Acid Calcium Phosphorus Magnesium Total Bilirubin AST ALT Alkaline Phosphatase Creatine Kinase Creatine Kinase Index CK-MB (CK-2) Troponin I Total Protein Albumin Vitamin B12 Serum Folate TSH Urine Color Urine Appearance Urine pH Ur Specific [place] Urine Protein Urine Glucose (UA) Urine Ketones Urine Blood Urine Nitrite Urine Bilirubin Urine Urobilinogen Ur Leukocyte Esterase Urine WBC (Auto) Urine RBC (Auto) Urine Bacteria Urine Mucus Salicylates Opiates Screen Methadone Screen Barbiturate Screen Phencyclidine Screen Ur Amphetamines Screen MDMA (Ecstasy) Screen Benzodiazepines Screen Cocaine Screen U Marijuana (THC) Screen Alcohol, Quantitative 02/11/18 02/11/18 02/11/18 19:50 19:50 19:50 WBC RBC Hgb Hct MCV MCH MCHC RDW Plt Count MPV Absolute Neuts (auto) Neutrophils % Lymphocytes % Monocytes % Eosinophils % Basophils % Nucleated RBC % PT with INR INR PTT (Actin FS) Anticoagulation Therapy Puncture Site Patient Temperature ABG pH ABG pCO2 at Pt Temp ABG pO2 at Pt Temp ABG HCO3 ABG O2 Sat (Measured) ABG O2 Content ABG Base Excess Sukhwinder Test VBG pH 7.06 L* POC VBG pCO2 75.7 H* POC VBG pO2 25.6 L Mixed VBG HCO3 20.5 Carboxyhemoglobin Methemoglobin O2 Delivery Device Oxygen Flow Rate Vent Mode Vent Rate Mechanical Rate PEEP Pressure Support Vent Sodium 142 Potassium 6.1 H* Chloride 103 Carbon Dioxide 21 Anion Gap 18 H BUN 20 H Creatinine 2.5 H Creat Clearance w eGFR 19.45 POC Glucometer Random Glucose 78 Lactic Acid 7.8 H* Calcium 8.9 Phosphorus Magnesium Total Bilirubin 0.4 AST 1201 H ALT 687 H Alkaline Phosphatase 127 H Creatine Kinase Creatine Kinase Index CK-MB (CK-2) Troponin I Total Protein 7.0 Albumin 3.6 Vitamin B12 Serum Folate TSH Urine Color Urine Appearance Urine pH Ur Specific [place] Urine Protein Urine Glucose (UA) Urine Ketones Urine Blood Urine Nitrite Urine Bilirubin Urine Urobilinogen Ur Leukocyte Esterase Urine WBC (Auto) Urine RBC (Auto) Urine Bacteria Urine Mucus Salicylates Opiates Screen Methadone Screen Barbiturate Screen Phencyclidine Screen Ur Amphetamines Screen MDMA (Ecstasy) Screen Benzodiazepines Screen Cocaine Screen U Marijuana (THC) Screen Alcohol, Quantitative 02/11/18 02/11/18 02/11/18 19:50 19:50 21:35 WBC RBC Hgb Hct MCV MCH MCHC RDW Plt Count MPV Absolute Neuts (auto) Neutrophils % Lymphocytes % Monocytes % Eosinophils % Basophils % Nucleated RBC % PT with INR INR PTT (Actin FS) Anticoagulation Therapy Puncture Site Patient Temperature ABG pH ABG pCO2 at Pt Temp ABG pO2 at Pt Temp ABG HCO3 ABG O2 Sat (Measured) ABG O2 Content ABG Base Excess Sukhwinder Test VBG pH POC VBG pCO2 POC VBG pO2 Mixed VBG HCO3 Carboxyhemoglobin Methemoglobin O2 Delivery Device Oxygen Flow Rate Vent Mode Vent Rate Mechanical Rate PEEP Pressure Support Vent Sodium Potassium Chloride Carbon Dioxide Anion Gap BUN Creatinine Creat Clearance w eGFR POC Glucometer Random Glucose Lactic Acid Calcium Phosphorus Magnesium Total Bilirubin AST ALT Alkaline Phosphatase Creatine Kinase Creatine Kinase Index CK-MB (CK-2) Troponin I 1.38 H* Total Protein Albumin Vitamin B12 Serum Folate TSH Urine Color Ltyellow Urine Appearance Clear Urine pH 6.0 Ur Specific [place] 1.006 Urine Protein Negative Urine Glucose (UA) Negative Urine Ketones Negative Urine Blood 2+ H Urine Nitrite Negative Urine Bilirubin Negative Urine Urobilinogen Negative Ur Leukocyte Esterase Negative Urine WBC (Auto) None Urine RBC (Auto) <1 Urine Bacteria Rare Urine Mucus Rare Salicylates 6.0 Opiates Screen Methadone Screen Barbiturate Screen Phencyclidine Screen Ur Amphetamines Screen MDMA (Ecstasy) Screen Benzodiazepines Screen Cocaine Screen U Marijuana (THC) Screen Alcohol, Quantitative < 5.0 02/11/18 02/11/18 02/11/18 21:35 22:48 23:37 WBC RBC Hgb Hct MCV MCH MCHC RDW Plt Count MPV Absolute Neuts (auto) Neutrophils % Lymphocytes % Monocytes % Eosinophils % Basophils % Nucleated RBC % PT with INR INR PTT (Actin FS) Anticoagulation Therapy Cancelled Puncture Site Cancelled Patient Temperature Cancelled ABG pH Cancelled ABG pCO2 at Pt Temp Cancelled ABG pO2 at Pt Temp Cancelled ABG HCO3 Cancelled ABG O2 Sat (Measured) Cancelled ABG O2 Content Cancelled ABG Base Excess Cancelled Sukhwinder Test Cancelled VBG pH POC VBG pCO2 POC VBG pO2 Mixed VBG HCO3 Carboxyhemoglobin Cancelled Methemoglobin Cancelled O2 Delivery Device Cancelled Oxygen Flow Rate Cancelled Vent Mode Cancelled Vent Rate Cancelled Mechanical Rate Cancelled PEEP Cancelled Pressure Support Vent Cancelled Sodium 144 Potassium 5.2 H Chloride 114 H Carbon Dioxide 16 L Anion Gap 14 BUN 23 H Creatinine 2.5 H Creat Clearance w eGFR 19.45 POC Glucometer Random Glucose 99 Lactic Acid Calcium 7.0 L Phosphorus Magnesium Total Bilirubin AST ALT Alkaline Phosphatase Creatine Kinase Creatine Kinase Index CK-MB (CK-2) Troponin I Total Protein Albumin Vitamin B12 Serum Folate TSH Urine Color Urine Appearance Urine pH Ur Specific [place] Urine Protein Urine Glucose (UA) Urine Ketones Urine Blood Urine Nitrite Urine Bilirubin Urine Urobilinogen Ur Leukocyte Esterase Urine WBC (Auto) Urine RBC (Auto) Urine Bacteria Urine Mucus Salicylates Opiates Screen Negative Methadone Screen Negative Barbiturate Screen Negative Phencyclidine Screen Negative Ur Amphetamines Screen Negative MDMA (Ecstasy) Screen Negative Benzodiazepines Screen Positive Cocaine Screen Negative U Marijuana (THC) Screen Negative Alcohol, Quantitative 02/11/18 02/11/18 02/11/18 23:37 23:38 23:45 WBC RBC Hgb Hct MCV MCH MCHC RDW Plt Count MPV Absolute Neuts (auto) Neutrophils % Lymphocytes % Monocytes % Eosinophils % Basophils % Nucleated RBC % PT with INR INR PTT (Actin FS) Anticoagulation Therapy No Result Required. Puncture Site Right brachial Patient Temperature ABG pH 7.24 L* ABG pCO2 at Pt Temp 34.7 L ABG pO2 at Pt Temp 415.0 H* ABG HCO3 14.4 L* ABG O2 Sat (Measured) 99.8 H* ABG O2 Content 18.1 ABG Base Excess -11.8 L* Sukhwinder Test Positive VBG pH POC VBG pCO2 POC VBG pO2 Mixed VBG HCO3 Carboxyhemoglobin 1.3 Methemoglobin 1.7 H O2 Delivery Device Vent Oxygen Flow Rate 100% Vent Mode No Result Required. Vent Rate 12 Mechanical Rate No Result Required. PEEP 5.0 Pressure Support Vent No Result Required. Sodium Potassium Chloride Carbon Dioxide Anion Gap BUN Creatinine Creat Clearance w eGFR POC Glucometer Random Glucose Lactic Acid 3.2 H* Calcium Phosphorus Magnesium Total Bilirubin AST ALT Alkaline Phosphatase Creatine Kinase 76390 H Creatine Kinase Index 1.4 CK-MB (CK-2) 158.71 H Troponin I Total Protein Albumin Vitamin B12 Serum Folate TSH Urine Color Urine Appearance Urine pH Ur Specific [place] Urine Protein Urine Glucose (UA) Urine Ketones Urine Blood Urine Nitrite Urine Bilirubin Urine Urobilinogen Ur Leukocyte Esterase Urine WBC (Auto) Urine RBC (Auto) Urine Bacteria Urine Mucus Salicylates Opiates Screen Methadone Screen Barbiturate Screen Phencyclidine Screen Ur Amphetamines Screen MDMA (Ecstasy) Screen Benzodiazepines Screen Cocaine Screen U Marijuana (THC) Screen Alcohol, Quantitative 02/12/18 02/12/18 02/12/18 05:30 05:30 05:30 WBC 14.9 H RBC 4.00 Hgb 12.5 Hct 40.3 MCV 100.5 H MCH 31.3 MCHC 31.1 L RDW 15.9 H Plt Count 151 D MPV 8.7 Absolute Neuts (auto) Neutrophils % Lymphocytes % Monocytes % Eosinophils % Basophils % Nucleated RBC % PT with INR INR PTT (Actin FS) Anticoagulation Therapy Puncture Site Patient Temperature ABG pH ABG pCO2 at Pt Temp ABG pO2 at Pt Temp ABG HCO3 ABG O2 Sat (Measured) ABG O2 Content ABG Base Excess Sukhwinder Test VBG pH POC VBG pCO2 POC VBG pO2 Mixed VBG HCO3 Carboxyhemoglobin Methemoglobin O2 Delivery Device Oxygen Flow Rate Vent Mode Vent Rate Mechanical Rate PEEP Pressure Support Vent Sodium 142 Potassium 6.0 H Chloride 112 H Carbon Dioxide 20 L Anion Gap 10 BUN 26 H Creatinine 2.7 H Creat Clearance w eGFR 17.80 POC Glucometer Random Glucose 127 H Lactic Acid 3.3 H* Calcium 7.0 L Phosphorus 6.1 H Magnesium 1.8 Total Bilirubin 0.3 AST 5382 H ALT 1994 H Alkaline Phosphatase 103 D Creatine Kinase Creatine Kinase Index CK-MB (CK-2) Troponin I Total Protein 5.4 L Albumin 2.7 L Vitamin B12 2781 H Serum Folate 26 H TSH 0.83 Urine Color Urine Appearance Urine pH Ur Specific [place] Urine Protein Urine Glucose (UA) Urine Ketones Urine Blood Urine Nitrite Urine Bilirubin Urine Urobilinogen Ur Leukocyte Esterase Urine WBC (Auto) Urine RBC (Auto) Urine Bacteria Urine Mucus Salicylates Opiates Screen Methadone Screen Barbiturate Screen Phencyclidine Screen Ur Amphetamines Screen MDMA (Ecstasy) Screen Benzodiazepines Screen Cocaine Screen U Marijuana (THC) Screen Alcohol, Quantitative 02/12/18 02/12/18 05:30 05:30 WBC RBC Hgb Hct MCV MCH MCHC RDW Plt Count MPV Absolute Neuts (auto) Neutrophils % Lymphocytes % Monocytes % Eosinophils % Basophils % Nucleated RBC % PT with INR INR PTT (Actin FS) Anticoagulation Therapy Puncture Site Patient Temperature ABG pH ABG pCO2 at Pt Temp ABG pO2 at Pt Temp ABG HCO3 ABG O2 Sat (Measured) ABG O2 Content ABG Base Excess Sukhwinder Test VBG pH POC VBG pCO2 POC VBG pO2 Mixed VBG HCO3 Carboxyhemoglobin Methemoglobin O2 Delivery Device Oxygen Flow Rate Vent Mode Vent Rate Mechanical Rate PEEP Pressure Support Vent Sodium Potassium Chloride Carbon Dioxide Anion Gap BUN Creatinine Creat Clearance w eGFR POC Glucometer Random Glucose Lactic Acid Calcium Phosphorus Magnesium Total Bilirubin AST ALT Alkaline Phosphatase Creatine Kinase Creatine Kinase Index CK-MB (CK-2) Troponin I 8.15 H* Total Protein Albumin Vitamin B12 Cancelled Serum Folate Cancelled TSH Cancelled Urine Color Urine Appearance Urine pH Ur Specific [place] Urine Protein Urine Glucose (UA) Urine Ketones Urine Blood Urine Nitrite Urine Bilirubin Urine Urobilinogen Ur Leukocyte Esterase Urine WBC (Auto) Urine RBC (Auto) Urine Bacteria Urine Mucus Salicylates Opiates Screen Methadone Screen Barbiturate Screen Phencyclidine Screen Ur Amphetamines Screen MDMA (Ecstasy) Screen Benzodiazepines Screen Cocaine Screen U Marijuana (THC) Screen Alcohol, Quantitative Problem List - Problems (1) Endotracheally intubated Code(s): Z97.8 - PRESENCE OF OTHER SPECIFIED DEVICES (2) Overdose Code(s): T50.901A - POISONING BY UNSP DRUG/MEDS/BIOL SUBST, ACCIDENTAL, INIT Qualifiers: Encounter type: initial encounter Injury intent: undetermined intent Qualified Code(s): T50.904A - Poisoning by unspecified drugs, medicaments and biological substances, undetermined, initial encounter (3) Substance induced mood disorder Code(s): F19.94 - OTH PSYCHOACTIVE SUBSTANCE USE, UNSP W MOOD DISORDER (4) Anxiety Code(s): F41.9 - ANXIETY DISORDER, UNSPECIFIED (5) Anxiety attack Code(s): F41.0 - PANIC DISORDER [EPISODIC PAROXYSMAL ANXIETY] (6) Chronic pain Code(s): G89.29 - OTHER CHRONIC PAIN Qualifiers: Chronic pain type: due to trauma Qualified Code(s): G89.21 - Chronic pain due to trauma (7) Opiate dependence Code(s): F11.20 - OPIOID DEPENDENCE, UNCOMPLICATED (8) New onset seizure Code(s): R56.9 - UNSPECIFIED CONVULSIONS ASSESSMENT/PLAN: AMS: (?) due to toxic ingestion (?) acute [employer] event Acute hypoxic respiratory failure Low clinical suspicion of Sepsis Lactic acidosis Elevated troponin QUINTEN Transaminitis Chronic back pain h/o of fentanyl overuse Possible history of seizure disorder Depression Anxiety Plan: IVF For additional brain imaging Aspiration precautions ABX per ID: (?) Need for LP Follow cultures Repeat labs early evening Keppra 500 mg BID started for seizure prophylaxis Monitor for withdrawal Continue ICU monitoring Dr Katz Critical care time spent in reviewing chart, evaluating patient and formulating plan - 36 minutes.
--- NOTE | 2018-02-12 13:05 | ECHO ---
Name: DAYANNA PRADO Exam:Adult Echocardiogram Study Date: 02/12/2018 10:25 AM Age: 62 yrs Reason For Study: TROPINEMIA Height: 65 in Weight: 123 lb BSA: 1.6 m2 BP: 108/55 mmHg MMode/2D Measurements & Calculations IVSd: 1.1 cm Ao root diam: 2.6 cm LVIDd: 3.3 cm LA dimension: 2.9 cm LVIDs: 2.2 cm LVPWd: 0.88 cm EDV(Teich): 43.9 ml ESV(Teich): 16.8 ml Doppler Measurements & Calculations MV E max michael: 70.8 cm/sec TR max michael: 268.5 cm/sec MV A max michael: 82.5 cm/sec TR max P.9 mmHg MV E/A: 0.86 MV dec time: 0.29 sec Med Peak E' Michael: 7.9 cm/sec Med E/e': 8.9 Lat Peak E' Michael: 9.8 cm/sec Lat E/e': 7.2 Procedure The study was technically adequate with some images being suboptimal in quality. Left Ventricle The left ventricle is normal in size. The left ventricle is hyperdynamic. Ejection Fraction = >70%. G rade I diastolic dysfunction, (abnormal relaxation pattern). Right Ventricle The right ventricle is mildly dilated. The right ventricular systolic function is borderline reduced. Atria Normal left and right atrial size and function. Mitral Valve The mitral valve is normal in structure and function. There is trace mitral regurgitation. Tricuspid Valve The tricuspid valve is not well visualized, but is grossly normal. There is moderate tricuspid regurg itation. Right ventricular systolic pressure is 29 mmhg. Aortic Valve The aortic valve opens well. The aortic valve is trileaflet. No aortic regurgitation is present. Pulmonic Valve The pulmonic valve is not well seen, but is grossly normal. Trace pulmonic valvular regurgitation. Great Vessels The aortic root is normal size. Pericardium/Pleura There is no pericardial effusion. Interpretation Summary There is no comparison study available. The left ventricle is normal in size. The left ventricle is hyperdynamic. Ejection Fraction = >70%. There is trace mitral regurgitation. There is moderate tricuspid regurgitation. Trace pulmonic valvular regurgitation. The right ventricle is mildly dilated. The right ventricular systolic function is borderline reduced. Mark Mckinley MD 02/12/2018 01:04 PM
--- NOTE | 2018-02-12 13:21 | PN ---
Teaching Attending Note ATTENDING PHYSICIAN STATEMENT I saw and evaluated the patient. I reviewed the resident's note and discussed the case with the resident. I agree with the resident's findings and plan as documented. SUBJECTIVE: OBJECTIVE: ASSESSMENT AND PLAN:
--- NOTE | 2018-02-12 13:30 | CON.GI ---
Consult Consult Specialty:: GI Reason for Consultation:: hematochezia - History of Present Illness History of Present Illness: Chart reviewed. Events and assessments noted. Per initial intake on the : Patient is a 62 year old female with past medical history of chronic back pain (on Fentanyl patch, gabapentin, oxycodone) , anxiety d/o, depression, and possible seizure disorder (2017), was brought in by EMS after she was found unresponsive, with the fentanyl patch in her mouth. Patient was last seen normal by her grand daughter at about 10am this morning. At 4pm, she was found by the daughter in prone position, unresponsive, and when the daughter tried to lift her up, she noted the Fentanyl patch in the patient' s mouth. According to the daughter, she asked her friend to immediately call 911 , while she was "waiting in the closet looking at pictures". It is unclear, however, why EMS arrived at the scene at 7pm. Upon arrival of the EMS, patient was unresponsive, pupils dilated, they gave her 6doses of Narcan. Patient remained unresponsive and they decided to intubate the patient. Upon arrival at the ED, patient had episodes vomiting and loose watery stools. ER course was notable for: (1)WBC 13.5, BUN 20, Cr 2.5, Lactic acid 7.8, AST 1201, ALT 687 The pt is lethargic, but arousable. Unable maintain a conversation however. On exam: abdomen soft, non-tender, no guarding, or rebound. No bowel sounds appreciated. No stigmata of advanced liver disease. One of the BP readings while in the ICU - 79/58 at 1130 today. No BMs, or hematochezia reported today. - History Source History Provided By: Medical Record, Caregiver - Past Medical History ...: No Musculoskeletal: Yes: Chronic low back pain - Alcohol/Substance Use Hx Alcohol Use: No - Smoking History Smoking history: Unknown if ever smoked Have you smoked in the past 12 months: Yes Aproximately how many cigarettes per day: 7 - Social History Usual Living Arrangement: Other (daughter and grand daughter.) ADL: Family Assistance History of Recent Travel: No Home Medications - Allergies Allergies/Adverse Reactions: Allergies Allergy/AdvReac Type Severity Reaction Status Date / Time lactose AdvReac Unknown Verified 02/11/18 21:25 - Home Medications Home Medications: Ambulatory Orders Citalopram Hydrobromide [Celexa -] 10 mg PO DAILY #14 tablet 06/09/17 Gabapentin 800 mg PO TID 02/12/18 oxyCODONE HCL [Roxicodone -] 10 mg PO Q6H PRN MDD 40 02/12/18 Family Disease History - Family Disease History Family History: Unremarkable (as per H&P) Physical Exam-GI Vital Signs: Vital Signs Temperature 99.2 F 02/12/18 13:18 Pulse Rate 88 02/12/18 13:18 Respiratory Rate 18 02/12/18 13:18 Blood Pressure 105/56 02/12/18 13:18 O2 Sat by Pulse Oximetry (%) 96 02/12/18 09:00 Constitutional: Yes: No Distress, Calm, Pallor Eyes: Yes: Conjunctiva Clear. No: Sclera Icterus HENT: Yes: Atraumatic Neck: Yes: Supple, Trachea Midline Cardiovascular: Yes: Regular Rate and Rhythm. No: Bradycardia, Tachycardia Respiratory: Yes: Regular Gastrointestinal Inspection: No: Ascites, Distention ...Auscultate: Yes: No Bowel Sounds ...Palpate: Yes: Soft. No: Firm/Rigid, Guarding, Mass, Tenderness, Tenderness, Epigastium, Tenderness, Rebound Neurological: Yes: Lethargy Labs: CBC, BMP 02/12/18 05:30 02/12/18 05:30 INR, PTT INR 1.13 (0.83-1.09) H 02/11/18 19:50 Laboratory Last Values WBC 13.4 K/mm3 (4.0-10.0) H 02/12/18 13:20 RBC 3.64 M/mm3 (3.60-5.2) 02/12/18 13:20 Hgb 11.7 GM/dL (10.7-15.3) 02/12/18 13:20 Hct 36.5 % (32.4-45.2) 02/12/18 13:20 MCV 100.4 fl (80-96) H 02/12/18 13:20 MCH 32.1 pg (25.7-33.7) 02/12/18 13:20 MCHC 32.0 g/dl (32.0-36.0) 02/12/18 13:20 RDW 15.9 % (11.6-15.6) H 02/12/18 13:20 Plt Count 155 K/MM3 (134-434) 02/12/18 13:20 MPV 8.7 fl (7.5-11.1) 02/12/18 13:20 Absolute Neuts (auto) 11.3 K/mm3 (1.5-8.0) H 02/11/18 19:50 Neutrophils % 84.1 % (42.8-82.8) H 02/11/18 19:50 Lymphocytes % 10.9 % (8-40) 02/11/18 19:50 Monocytes % 4.6 % (3.8-10.2) 02/11/18 19:50 Eosinophils % 0.1 % (0-4.5) 02/11/18 19:50 Basophils % 0.3 % (0-2.0) 02/11/18 19:50 Nucleated RBC % 0 % (0-0) 02/11/18 19:50 PT with INR 12.80 SEC (9.7-13.0) 02/11/18 19:50 INR 1.13 (0.83-1.09) H 02/11/18 19:50 PTT (Actin FS) 35.5 SECONDS (25.2-36.5) 02/11/18 19:50 Anticoagulation Therapy No Result Required. 02/11/18 23:45 Puncture Site Right brachial 02/11/18 23:45 Patient Temperature Cancelled 02/11/18 22:48 ABG pH 7.24 (7.35-7.45) L* 02/11/18 23:45 ABG pCO2 at Pt Temp 34.7 mmHg (35-45) L 02/11/18 23:45 ABG pO2 at Pt Temp 415.0 mmHg (80-100) H* 02/11/18 23:45 ABG HCO3 14.4 meq/L (22-26) L* 02/11/18 23:45 ABG O2 Sat (Measured) 99.8 % (90-98.9) H* 02/11/18 23:45 ABG O2 Content 18.1 % vol (15-22) 02/11/18 23:45 ABG Base Excess -11.8 meq/l (-2-2) L* 02/11/18 23:45 Sukhwinder Test Positive 02/11/18 23:45 VBG pH 7.06 (7.32-7.42) L* 02/11/18 19:50 POC VBG pCO2 75.7 mmHg (38-52) H* 02/11/18 19:50 POC VBG pO2 25.6 mmHg (28-48) L 02/11/18 19:50 Mixed VBG HCO3 20.5 meq/L (19-25) 02/11/18 19:50 Carboxyhemoglobin 1.3 gm% (0.5-2.0) 02/11/18 23:45 Methemoglobin 1.7 % (0.4-1.5) H 02/11/18 23:45 O2 Delivery Device Vent 02/11/18 23:45 Oxygen Flow Rate 100% 02/11/18 23:45 Vent Mode No Result Required. 02/11/18 23:45 Vent Rate 12 02/11/18 23:45 Mechanical Rate No Result Required. 02/11/18 23:45 PEEP 5.0 cmH2O 02/11/18 23:45 Pressure Support Vent No Result Required. 02/11/18 23:45 Sodium 146 mmol/L (136-145) H 02/12/18 13:20 Potassium 4.6 mmol/L (3.5-5.1) 02/12/18 13:20 Chloride 116 mmol/L (98-107) H 02/12/18 13:20 Carbon Dioxide 19 mmol/L (21-32) L 02/12/18 13:20 Anion Gap 11 MMOL/L (8-16) 02/12/18 13:20 BUN 32 mg/dL (7-18) H 02/12/18 13:20 Creatinine 2.9 mg/dL (0.55-1.02) H 02/12/18 13:20 Creat Clearance w eGFR 16.39 (>60) 02/12/18 13:20 POC Glucometer 104.53139 UNITS (80-120) 02/11/18 18:57 Random Glucose 99 mg/dL (74-106) 02/12/18 13:20 Lactic Acid 3.2 mmol/L (0.0-2.0) H* 02/12/18 13:20 Calcium 7.4 mg/dL (8.5-10.1) L 02/12/18 13:20 Phosphorus 6.1 mg/dL (2.5-4.9) H 02/12/18 05:30 Magnesium 1.8 mg/dL (1.8-2.4) 02/12/18 05:30 Total Bilirubin 0.3 mg/dL (0.2-1.0) 02/12/18 05:30 AST 5382 U/L (15-37) H 02/12/18 05:30 ALT 1994 U/L (12-78) H 02/12/18 05:30 Alkaline Phosphatase 103 U/L (45-117) D 02/12/18 05:30 Ammonia 25.0 umol/L (11-32) 02/12/18 13:20 Creatine Kinase 33145 IU/L (26-192) H 02/12/18 13:20 Creatine Kinase Index 1.3 % (0.0-5.0) 02/12/18 13:20 CK-MB (CK-2) 166.5 ng/mL (0.5-3.6) H 02/12/18 13:20 Troponin I 9.45 ng/ml (0.00-0.05) H* 02/12/18 13:20 Total Protein 5.4 g/dl (6.4-8.2) L 02/12/18 05:30 Albumin 2.7 g/dl (3.4-5.0) L 02/12/18 05:30 Vitamin B12 2781 pg/ml (180-914) H 02/12/18 05:30 Serum Folate 26 ng/ml (3.1-17.5) H 02/12/18 05:30 TSH 0.83 uIU/ml (0.358-3.74) 02/12/18 05:30 Urine Color Samara 02/12/18 13:20 Urine Appearance Turbid 02/12/18 13:20 Urine pH 5.0 (5.0-8.0) 02/12/18 13:20 Ur Specific [place] 1.021 (1.001-1.035) 02/12/18 13:20 Urine Protein 2+ (NEGATIVE) H 02/12/18 13:20 Urine Glucose (UA) Negative (NEGATIVE) 02/12/18 13:20 Urine Ketones Trace (NEGATIVE) H 02/12/18 13:20 Urine Blood 3+ (NEGATIVE) H 02/12/18 13:20 Urine Nitrite Negative (NEGATIVE) 02/12/18 13:20 Urine Bilirubin Negative (<2.0 mg/dL) 02/12/18 13:20 Urine Urobilinogen Negative mg/dL (0.2-1.0) 02/12/18 13:20 Ur Leukocyte Esterase 1+ (NEGATIVE) H 02/12/18 13:20 Urine WBC (Auto) 3-5 (0-5) 02/12/18 13:20 Urine RBC (Auto) Negative /hpf (0-3) 02/12/18 13:20 Ur Epithelial Cells Moderate /HPF 02/12/18 13:20 Calcium Oxalate Crystal Few /hpf (NONE SEEN) 02/12/18 13:20 Amorphous Urates Many /hpf (NONE SEEN) 02/12/18 13:20 Urine Bacteria Rare /hpf (NONE SEEN) 02/11/18 21:35 Urine Mucus Rare 02/11/18 21:35 Salicylates 6.0 mg/dL 02/11/18 19:50 Opiates Screen Negative ng/ml (CORBTA=365) 02/11/18 21:35 Methadone Screen Negative ng/ml (WKNJMA=140) 02/11/18 21:35 Barbiturate Screen Negative ng/ml (DPWITR=875) 02/11/18 21:35 Phencyclidine Screen Negative ng/ml (CUTOFF=25) 02/11/18 21:35 Ur Amphetamines Screen Negative ng/ml (JKVHFI=612) 02/11/18 21:35 MDMA (Ecstasy) Screen Negative ng/ml (MNRBQB=928) 02/11/18 21:35 Benzodiazepines Screen Positive ng/ml (TCJFAS=240) 02/11/18 21:35 Cocaine Screen Negative ng/ml (FOAPCK=540) 02/11/18 21:35 U Marijuana (THC) Screen Negative ng/ml (CUTOFF=50) 02/11/18 21:35 Alcohol, Quantitative < 5.0 mg/dL (0.0-5.0) 02/11/18 19:50 Imaging - Results Cat Scan: Report Reviewed (diatal colon "colitis") Ultrasound: Report Reviewed Problem List - Problems (1) Ischemic colitis, enteritis, or enterocolitis Code(s): K55.9 - VASCULAR DISORDER OF INTESTINE, UNSPECIFIED (2) Ischemia reperfusion injury of liver Code(s): K91.81 - OTHER INTRAOPERATIVE COMPLICATIONS OF DIGESTIVE SYSTEM (3) Ischemic hepatitis Code(s): K75.9 - INFLAMMATORY LIVER DISEASE, UNSPECIFIED (4) Endotracheally intubated Code(s): Z97.8 - PRESENCE OF OTHER SPECIFIED DEVICES (5) Overdose Code(s): T50.901A - POISONING BY UNSP DRUG/MEDS/BIOL SUBST, ACCIDENTAL, INIT Qualifiers: Encounter type: initial encounter Injury intent: undetermined intent Qualified Code(s): T50.904A - Poisoning by unspecified drugs, medicaments and biological substances, undetermined, initial encounter (6) Elevated liver enzymes Code(s): R74.8 - ABNORMAL LEVELS OF OTHER SERUM ENZYMES Assessment/Plan A 62F with the above acute and chronic medical issues noted on admission to have an episode of hematochezia and high transaminases w/o lab evidence of cholestasis. No new episodes of bleeding noted. No bm today. US of the liver revealed 11 mm CBD w/o obvious defects and pericholecystic fluid. Given the history and the recent events leading to this admission, strongly suspect ischemmic hepatopathy and ischemic bowel to be the likely etiologies of the above liver an colon abnormalities. Agree with the primary team's plan to exclude acetaminophen toxicity, acute viral hepatitis, and infections etiologies of colitis. Agree with aggressive hydration, and ABx with good GI coverage. maintain MAP >75. Monitor and supplement electrolytes as needed. Bowel rest today. Daily labs. Will follow.
--- NOTE | 2018-02-12 13:34 | PN ---
Teaching Attending Note Name of Resident: Marybeth Michel ATTENDING PHYSICIAN STATEMENT I saw and evaluated the patient. I reviewed the resident's note and discussed the case with the resident. I agree with the resident's findings and plan as documented. SUBJECTIVE: No fever or chills, does not remember exactly what happened but now complains of No chest pain or SOB or abd pain. denies any hx of GI bleed OBJECTIVE: NAD, lethargic , partially cooperative , knows she is in hospital, knows her name and age . HEENT: No facial droop, round equal pupils. dry MM. Cv: RRR, no MRG Lungs: CTAB Abd: soft, NT, ND < NLBS Ext: no edema , no erythema. neuro: Right EOMi, L EOM significant for incomplete movement laterally . no facial droop, round equal pupils , reactive to light. Strength: RUE: shoulder abduction 0, shoulder flexion 0, biceps 1, triceps 1. hand associate media director 4/ 5. LUE: sholder abduction 4/5, biceps 5/5 , triceps 5/5 .hand associate media director 5/5 . RLE; hip flexion 4/5, knee flexion 5/5 , ankle dorsiflexion and plantar flexion 1/5 LLE: hip flexion 4/5 , knee flexion /extension 5/5/ , ankle dorsiflexionand plantarflexion 5/5 . reflexes : 2+ knee jerkand biceps b/l. Nl sensation to light touch all over Rectal: bl hair distribution, no masses or hemorrhoids on Dr. Michel's exam . dark blood on examiner finger andguaiac + ASSESSMENT AND PLAN: 62 y/o 62 y/o lady with h/o chronic opioids use, possible seizure disorder, anxiety, depression and panic attacks who was brought to ER due to unresponsiveness 1- Unresponsiveness/encephalopathy: DDX includes opioids overdose vs stroke, seizure with prolonged postictal period, vs toxic metabolic - neuro exam indicates RUE weakness with R distal LE weakness, in addition to eye movement abnormalities indicating possible stroke . - received ASA earlier. - neuro was notified, and recommended repeat CT scan - order MRI - tele to r/o A fib, speech eval, PT eval. - can't use statins - cont Keppra 2-Hyperkalemia: likely form renal failure, . Not on meds that affect K. No peaked TW on EKG - s/p calcium and Insulin/glc. will give Alb nebs. - avoid kayeksalate due to rectal bleed - repeat K 3- QUINTEN: probably prerenal and rhabdo but can't r/o ATN. - IVF - renal US . urine electrolytes. 4- Rhabdomyolysis : IVF , follow CPK 5- Transaminitis : possible liver injury form transient hypotension . vs meds / toxins - check tylenol level - hepatitis panel , LIANET , AMA , anti-smooth muscle Abs - US of liver - GI eval 6- Metabolic acidosis : due to lactic acidosis . possible transient hypotension vs sezure vs ischemia ( bowel ) - IVF. lactic improved - CT w/o contrast with no etiology. but rectal bleed might indicate ischemic bowel . - will ask for GI eval. can't give IV dye due to renal failure 7- NSTEMI: possible demand, but EKG has EKG changes ( 1st : TWI in lateral leads, 2nd this am, TWI in anterioseptal leads and inferior ) - unfortunately can't give heparin gtt or statin . - cont ASA . - d/w Dr. Hunter . - monitor HR and BP 8- Rectal bleed : ishcemia vs internal hemorrhoids. lactic acidosis could be due to hypovolemia or seizure. doubt infection - stable hb . - Gi eval. - avoid full dose Ac - Not sure about need for Abx, will dc vanco, and ask ID about zosyn given last night 9- Opioid use: monitor for any signs of withdrawal. might need to place her back on some opioids ICU level of care . will confirm meds and d/w family Critical Care Total Critical Care Time (in minutes): 50 Critical Care Statement: The care of this patient involved high complexity decision making to prevent further life threatening deterioration of the patient 's condition and/or to evaluate & treat vital organ system(s) failure or risk of failure.
--- NOTE | 2018-02-12 13:36 | CONSULT ---
Admitting History and Physical - Primary Care Physician PCP: Bird Diaz - Admission History of Present Illness: Per EMR: Patient is a 62 year old female with past medical history of chronic back pain ( on Fentanyl patch, gabapentin, oxycodone), anxiety d/o, depression, and possible seizure disorder (2017), was brought in by EMS after she was found unresponsive, with the fentanyl patch in her mouth. Patient was last seen normal by her grand daughter at about 10am this morning. At 4pm, she was found by the daughter in prone position, unresponsive, and when the daughter tried to lift her up, she noted the Fentanyl patch in the patient's mouth. According to the daughter, she asked her friend to immediately call 911, while she was "waiting in the closet looking at pictures". It is unclear, however, why EMS arrived at the scene at 7pm. Upon arrival of the EMS, patient was unresponsive, pupils dilated, they gave her 6doses of Narcan. Patient remained unresponsive and they decided to intubate the patient. Upon arrival at the ED, patient had episodes vomiting and loose watery stools. Per Nursing note:Pt lethargic but arousable to touch, lips and fingertips dusky. O2 sat unable to read. Pt extubated in ER prior to transport. Inc sm amt bloody BM. Unable to get additiona IV access. Urine output dark and minimal. No family with pt on arrival. History Source: Family Member (Pt's daughter-poor historian), Medical Record Limitations to Obtaining History: Clinical Condition - Past Medical History ...: No Musculoskeletal: Yes: Chronic low back pain - Smoking History Smoking history: Unknown if ever smoked Have you smoked in the past 12 months: Yes Aproximately how many cigarettes per day: 7 - Alcohol/Substance Use Hx Alcohol Use: No - Social History ADL: Family Assistance History of Recent Travel: No History - Admission Reason For Visit: DRUG OVERDOSE,SEPSIS - Diagnostics X-ray: Report Reviewed CT Scan: Report Reviewed - General Mental Status: Able to Follow Commands, Lethargic (arousable but repeatedly falls asleep) Attention: Distractible, Mild Impairment Ability to Follow Directions: Fair - Hearing Hearing: Normal Speech Evaluation - Communication Primary Language: BULGARIAN Communication: Yes: Simple Responses - Speech Production Able to Make Needs Known: Yes: WNL Intelligibility: Yes: Mildly Impaired - Speech Characteristics Voice Loudness: Normal Voice Pitch: Yes: Normal Voice Phonatory-based Quality: Yes: Normal Speech Clarity: < 100% Nasal Resonance: Normal Articulation: Yes: Imprecise (mild- lethargy) - Language/Auditory Comprehension Follows: Yes: 1 Stage Simple Commands - Swallow Evaluation/Bedside Assessment Current Nutritional Intake: NPO Oral Secretions: Yes: WFL Dentition: Yes: Edentulous Facial Symmetry at Rest: Symmetrical Against Resistance Opening: Normal Against Resistance Closing: Normal Pucker Lips: Normal Smile: Normal Lingual Movement: Normal, Symmetric Lingual Speed of Movement: Normal Lingual Movement Strgth Against Opposition: Normal Lingual Movement Characteristics: Normal Velopharyngeal Movement: Normal Laryngeal Elevation: WFL Laryngeal Movement: Able to Palpate Rate of Intake: WFL Bolus Size: WFL Labial Seal: WFL Oral Prep Time: WFL A-P Transit: WFL Pocketing: None Timing of Swallow: WFL Coughing/Throat Clear: No Change in Voice: No Recommendations - Speech Evaluation, Impression/Plan Impression: Lethargic but arousable. Good tolerance of puree/thin liquid via straw. Solids not assessed. Dentures not available. - Dysphagia Impressions/Plan Dysphagia Impressions: Risk of Aspiration, Ongoing Evaluation *Silent aspiration: cannot be R/O at bedside Dysphagia Treatment Plan: Small Bites, Chin Tuck/Down, Facilitative Feeding, 1/ 2 tsp. at a time, Elevate HOB during feed Recommendations: Other (Feed only when fully alert. Upgrade once more awake, as tolerated, with dentures in place) - Recommendations Diet Consistency: Dysphagia Pureed Medication Administration: Crushed with applesauce Liquids: Thin Liquids
[2018-02-12 13:45] LABS: HEMATOCRIT 36.5 % (32.4-45.2); HEMOGLOBIN 11.7 GM/dL (10.7-15.3); MCH 32.1 pg (25.7-33.7); MEAN CELL VOLUME 100.4 fl (80-96); MEAN PLT VOLUME 8.7 fl (7.5-11.1); PLATELET COUNT 155 K/MM3 (134-434); RBC 3.64 M/mm3 (3.60-5.2); RDW 15.9 % (11.6-15.6); URINE APPEARANCE TURBID; URINE BILIRUBIN NEGATIVE (<2.0 mg/dL); URINE COLOR AMBER; URINE GLUCOSE (UA) NEGATIVE (NEGATIVE); URINE KETONE TRACE (NEGATIVE); URINE NITRITE NEGATIVE (NEGATIVE); URINE UROBILINOGEN NEGATIVE mg/dL (0.2-1.0); WHITE BLOOD COUNT 13.4 K/mm3 (4.0-10.0)
[2018-02-12 13:46] LABS: URINE LEUK ESTERASE 1+ (NEGATIVE); URINE PROTEIN 2+ (NEGATIVE)
[2018-02-12 14:14] LABS: AMORP URATES MANY /hpf (NONE SEEN); CALCIUM OXALATE CRYSTALS FEW /hpf (NONE SEEN); EPI CELLS MODERATE /HPF
[2018-02-12 14:16] LABS: ANION GAP 11 MMOL/L (8-16); BLOOD UREA NITROGEN 32 mg/dL (7-18); CALCIUM 7.4 mg/dL (8.5-10.1); CHLORIDE 116 mmol/L (98-107); CO2 19 mmol/L (21-32); CREATININE 2.9 mg/dL (0.55-1.02); GLUCOSE,RANDOM 99 mg/dL (74-106); POTASSIUM 4.6 mmol/L (3.5-5.1); SODIUM 146 mmol/L (136-145)
--- NOTE | 2018-02-12 14:26 | PN ---
Progress Note (short form) - Note Progress Note: ID consult dictated imp/reccd probable overdose/?cva with intubation/hypotension-now extubated and awake abnl lft NSTEMI ?ischemic colitis QUINTEN rahabdomyolysis cultures zosyn renally dosed over 45 minutes spent in the review of this critically ill ICU patient and of labs and imaging studies d/w ICU resident Problem List - Problems (1) Overdose Code(s): T50.901A - POISONING BY UNSP DRUG/MEDS/BIOL SUBST, ACCIDENTAL, INIT Qualifiers: Encounter type: initial encounter Injury intent: undetermined intent Qualified Code(s): T50.904A - Poisoning by unspecified drugs, medicaments and biological substances, undetermined, initial encounter (2) Transaminitis Code(s): R74.0 - NONSPEC ELEV OF LEVELS OF TRANSAMNS & LACTIC ACID DEHYDRGNSE (3) Ischemic colitis, enteritis, or enterocolitis Code(s): K55.9 - VASCULAR DISORDER OF INTESTINE, UNSPECIFIED (4) QUINTEN (acute kidney injury) Code(s): N17.9 - ACUTE KIDNEY FAILURE, UNSPECIFIED (5) Rhabdomyolysis Code(s): M62.82 - RHABDOMYOLYSIS (6) NSTEMI (non-ST elevated myocardial infarction) Code(s): I21.4 - NON-ST ELEVATION (NSTEMI) MYOCARDIAL INFARCTION
[2018-02-12] MEDS: PIPERACILLIN/TAZOB 2.25 GM 2.25 GM in DEXTROSE 5%-WATER - 50 ML IVPB SCH ×2 (15:00→18:49)
--- NOTE | 2018-02-12 15:27 | PN ---
Physical Exam: SUBJECTIVE: Patient seen and examined at bedside. patient was very altered and somnolent this morning. she was able to state her name but did not know exactly where she was or why she was in the hospital. she kept repeating that all she wanted was a soda. she denies any CP/SOB/N/V. Head CT was done showing no acute intracranial pathology. OBJECTIVE: Vital Signs Period Temp Pulse Resp BP Sys/Gruber Pulse Ox Last 24 Hr 98.0 F-99.3 F 83-99 14-29 86-125/44-83 70-100 GENERAL: The patient is somnolent,lethargic and has altered mental status. EYES: pinpoint pupils B/L; left eyelid appears more swollen in comparison to right eyelid LUNGS: Breath sounds equal, clear to auscultation bilaterally, no wheezes, no crackles, no accessory muscle use. HEART: Regular rate and rhythm, S1, S2 without murmur, rub or gallop. ABDOMEN: Soft, nontender, nondistended, normoactive bowel sounds, no guarding, no rebound, no hepatosplenomegaly, no masses. EXTREMITIES: 2+ pulses, warm, well-perfused, no edema. NEUROLOGICAL: new right sided weakness on right arm; altered mental status . SKIN: Warm, dry, normal turgor, no rashes or lesions noted Laboratory Results - last 24 hr 02/11/18 02/11/18 02/11/18 18:57 19:50 19:50 WBC 13.5 H RBC 4.36 Hgb 14.0 Hct 44.2 D MCV 101.3 H MCH 32.1 MCHC 31.7 L RDW 16.1 H Plt Count 235 D MPV 8.1 D Absolute Neuts (auto) 11.3 H Neutrophils % 84.1 H Lymphocytes % 10.9 Monocytes % 4.6 Eosinophils % 0.1 Basophils % 0.3 Nucleated RBC % 0 PT with INR 12.80 INR 1.13 H PTT (Actin FS) 35.5 Anticoagulation Therapy Puncture Site Patient Temperature ABG pH ABG pCO2 at Pt Temp ABG pO2 at Pt Temp ABG HCO3 ABG O2 Sat (Measured) ABG O2 Content ABG Base Excess Sukhwinder Test VBG pH POC VBG pCO2 POC VBG pO2 Mixed VBG HCO3 Carboxyhemoglobin Methemoglobin O2 Delivery Device Oxygen Flow Rate Vent Mode Vent Rate Mechanical Rate PEEP Pressure Support Vent Sodium Potassium Chloride Carbon Dioxide Anion Gap BUN Creatinine Creat Clearance w eGFR POC Glucometer [phone] Random Glucose Lactic Acid Calcium Phosphorus Magnesium Total Bilirubin AST ALT Alkaline Phosphatase Ammonia Creatine Kinase Creatine Kinase Index CK-MB (CK-2) Troponin I Total Protein Albumin Vitamin B12 Serum Folate TSH Urine Color Urine Appearance Urine pH Ur Specific [place] Urine Protein Urine Glucose (UA) Urine Ketones Urine Blood Urine Nitrite Urine Bilirubin Urine Urobilinogen Ur Leukocyte Esterase Urine WBC (Auto) Urine RBC (Auto) Ur Epithelial Cells Calcium Oxalate Crystal Amorphous Urates Urine Bacteria Urine Mucus Salicylates Opiates Screen Methadone Screen Barbiturate Screen Phencyclidine Screen Ur Amphetamines Screen MDMA (Ecstasy) Screen Benzodiazepines Screen Cocaine Screen U Marijuana (THC) Screen Alcohol, Quantitative 02/11/18 02/11/18 02/11/18 19:50 19:50 19:50 WBC RBC Hgb Hct MCV MCH MCHC RDW Plt Count MPV Absolute Neuts (auto) Neutrophils % Lymphocytes % Monocytes % Eosinophils % Basophils % Nucleated RBC % PT with INR INR PTT (Actin FS) Anticoagulation Therapy Puncture Site Patient Temperature ABG pH ABG pCO2 at Pt Temp ABG pO2 at Pt Temp ABG HCO3 ABG O2 Sat (Measured) ABG O2 Content ABG Base Excess Sukhwinder Test VBG pH 7.06 L* POC VBG pCO2 75.7 H* POC VBG pO2 25.6 L Mixed VBG HCO3 20.5 Carboxyhemoglobin Methemoglobin O2 Delivery Device Oxygen Flow Rate Vent Mode Vent Rate Mechanical Rate PEEP Pressure Support Vent Sodium 142 Potassium 6.1 H* Chloride 103 Carbon Dioxide 21 Anion Gap 18 H BUN 20 H Creatinine 2.5 H Creat Clearance w eGFR 19.45 POC Glucometer Random Glucose 78 Lactic Acid 7.8 H* Calcium 8.9 Phosphorus Magnesium Total Bilirubin 0.4 AST 1201 H ALT 687 H Alkaline Phosphatase 127 H Ammonia Creatine Kinase Creatine Kinase Index CK-MB (CK-2) Troponin I Total Protein 7.0 Albumin 3.6 Vitamin B12 Serum Folate TSH Urine Color Urine Appearance Urine pH Ur Specific [place] Urine Protein Urine Glucose (UA) Urine Ketones Urine Blood Urine Nitrite Urine Bilirubin Urine Urobilinogen Ur Leukocyte Esterase Urine WBC (Auto) Urine RBC (Auto) Ur Epithelial Cells Calcium Oxalate Crystal Amorphous Urates Urine Bacteria Urine Mucus Salicylates Opiates Screen Methadone Screen Barbiturate Screen Phencyclidine Screen Ur Amphetamines Screen MDMA (Ecstasy) Screen Benzodiazepines Screen Cocaine Screen U Marijuana (THC) Screen Alcohol, Quantitative 02/11/18 02/11/18 02/11/18 19:50 19:50 21:35 WBC RBC Hgb Hct MCV MCH MCHC RDW Plt Count MPV Absolute Neuts (auto) Neutrophils % Lymphocytes % Monocytes % Eosinophils % Basophils % Nucleated RBC % PT with INR INR PTT (Actin FS) Anticoagulation Therapy Puncture Site Patient Temperature ABG pH ABG pCO2 at Pt Temp ABG pO2 at Pt Temp ABG HCO3 ABG O2 Sat (Measured) ABG O2 Content ABG Base Excess Sukhwinder Test VBG pH POC VBG pCO2 POC VBG pO2 Mixed VBG HCO3 Carboxyhemoglobin Methemoglobin O2 Delivery Device Oxygen Flow Rate Vent Mode Vent Rate Mechanical Rate PEEP Pressure Support Vent Sodium Potassium Chloride Carbon Dioxide Anion Gap BUN Creatinine Creat Clearance w eGFR POC Glucometer Random Glucose Lactic Acid Calcium Phosphorus Magnesium Total Bilirubin AST ALT Alkaline Phosphatase Ammonia Creatine Kinase Creatine Kinase Index CK-MB (CK-2) Troponin I 1.38 H* Total Protein Albumin Vitamin B12 Serum Folate TSH Urine Color Ltyellow Urine Appearance Clear Urine pH 6.0 Ur Specific [place] 1.006 Urine Protein Negative Urine Glucose (UA) Negative Urine Ketones Negative Urine Blood 2+ H Urine Nitrite Negative Urine Bilirubin Negative Urine Urobilinogen Negative Ur Leukocyte Esterase Negative Urine WBC (Auto) None Urine RBC (Auto) <1 Ur Epithelial Cells Calcium Oxalate Crystal Amorphous Urates Urine Bacteria Rare Urine Mucus Rare Salicylates 6.0 Opiates Screen Methadone Screen Barbiturate Screen Phencyclidine Screen Ur Amphetamines Screen MDMA (Ecstasy) Screen Benzodiazepines Screen Cocaine Screen U Marijuana (THC) Screen Alcohol, Quantitative < 5.0 02/11/18 02/11/18 02/11/18 21:35 22:48 23:37 WBC RBC Hgb Hct MCV MCH MCHC RDW Plt Count MPV Absolute Neuts (auto) Neutrophils % Lymphocytes % Monocytes % Eosinophils % Basophils % Nucleated RBC % PT with INR INR PTT (Actin FS) Anticoagulation Therapy Cancelled Puncture Site Cancelled Patient Temperature Cancelled ABG pH Cancelled ABG pCO2 at Pt Temp Cancelled ABG pO2 at Pt Temp Cancelled ABG HCO3 Cancelled ABG O2 Sat (Measured) Cancelled ABG O2 Content Cancelled ABG Base Excess Cancelled Sukhwinder Test Cancelled VBG pH POC VBG pCO2 POC VBG pO2 Mixed VBG HCO3 Carboxyhemoglobin Cancelled Methemoglobin Cancelled O2 Delivery Device Cancelled Oxygen Flow Rate Cancelled Vent Mode Cancelled Vent Rate Cancelled Mechanical Rate Cancelled PEEP Cancelled Pressure Support Vent Cancelled Sodium 144 Potassium 5.2 H Chloride 114 H Carbon Dioxide 16 L Anion Gap 14 BUN 23 H Creatinine 2.5 H Creat Clearance w eGFR 19.45 POC Glucometer Random Glucose 99 Lactic Acid Calcium 7.0 L Phosphorus Magnesium Total Bilirubin AST ALT Alkaline Phosphatase Ammonia Creatine Kinase Creatine Kinase Index CK-MB (CK-2) Troponin I Total Protein Albumin Vitamin B12 Serum Folate TSH Urine Color Urine Appearance Urine pH Ur Specific [place] Urine Protein Urine Glucose (UA) Urine Ketones Urine Blood Urine Nitrite Urine Bilirubin Urine Urobilinogen Ur Leukocyte Esterase Urine WBC (Auto) Urine RBC (Auto) Ur Epithelial Cells Calcium Oxalate Crystal Amorphous Urates Urine Bacteria Urine Mucus Salicylates Opiates Screen Negative Methadone Screen Negative Barbiturate Screen Negative Phencyclidine Screen Negative Ur Amphetamines Screen Negative MDMA (Ecstasy) Screen Negative Benzodiazepines Screen Positive Cocaine Screen Negative U Marijuana (THC) Screen Negative Alcohol, Quantitative 02/11/18 02/11/18 02/11/18 23:37 23:38 23:45 WBC RBC Hgb Hct MCV MCH MCHC RDW Plt Count MPV Absolute Neuts (auto) Neutrophils % Lymphocytes % Monocytes % Eosinophils % Basophils % Nucleated RBC % PT with INR INR PTT (Actin FS) Anticoagulation Therapy No Result Required. Puncture Site Right brachial Patient Temperature ABG pH 7.24 L* ABG pCO2 at Pt Temp 34.7 L ABG pO2 at Pt Temp 415.0 H* ABG HCO3 14.4 L* ABG O2 Sat (Measured) 99.8 H* ABG O2 Content 18.1 ABG Base Excess -11.8 L* Sukhwinder Test Positive VBG pH POC VBG pCO2 POC VBG pO2 Mixed VBG HCO3 Carboxyhemoglobin 1.3 Methemoglobin 1.7 H O2 Delivery Device Vent Oxygen Flow Rate 100% Vent Mode No Result Required. Vent Rate 12 Mechanical Rate No Result Required. PEEP 5.0 Pressure Support Vent No Result Required. Sodium Potassium Chloride Carbon Dioxide Anion Gap BUN Creatinine Creat Clearance w eGFR POC Glucometer Random Glucose Lactic Acid 3.2 H* Calcium Phosphorus Magnesium Total Bilirubin AST ALT Alkaline Phosphatase Ammonia Creatine Kinase 52774 H Creatine Kinase Index 1.4 CK-MB (CK-2) 158.71 H Troponin I Total Protein Albumin Vitamin B12 Serum Folate TSH Urine Color Urine Appearance Urine pH Ur Specific [place] Urine Protein Urine Glucose (UA) Urine Ketones Urine Blood Urine Nitrite Urine Bilirubin Urine Urobilinogen Ur Leukocyte Esterase Urine WBC (Auto) Urine RBC (Auto) Ur Epithelial Cells Calcium Oxalate Crystal Amorphous Urates Urine Bacteria Urine Mucus Salicylates Opiates Screen Methadone Screen Barbiturate Screen Phencyclidine Screen Ur Amphetamines Screen MDMA (Ecstasy) Screen Benzodiazepines Screen Cocaine Screen U Marijuana (THC) Screen Alcohol, Quantitative 02/12/18 02/12/18 02/12/18 05:30 05:30 05:30 WBC 14.9 H RBC 4.00 Hgb 12.5 Hct 40.3 MCV 100.5 H MCH 31.3 MCHC 31.1 L RDW 15.9 H Plt Count 151 D MPV 8.7 Absolute Neuts (auto) Neutrophils % Lymphocytes % Monocytes % Eosinophils % Basophils % Nucleated RBC % PT with INR INR PTT (Actin FS) Anticoagulation Therapy Puncture Site Patient Temperature ABG pH ABG pCO2 at Pt Temp ABG pO2 at Pt Temp ABG HCO3 ABG O2 Sat (Measured) ABG O2 Content ABG Base Excess Sukhwinder Test VBG pH POC VBG pCO2 POC VBG pO2 Mixed VBG HCO3 Carboxyhemoglobin Methemoglobin O2 Delivery Device Oxygen Flow Rate Vent Mode Vent Rate Mechanical Rate PEEP Pressure Support Vent Sodium 142 Potassium 6.0 H Chloride 112 H Carbon Dioxide 20 L Anion Gap 10 BUN 26 H Creatinine 2.7 H Creat Clearance w eGFR 17.80 POC Glucometer Random Glucose 127 H Lactic Acid 3.3 H* Calcium 7.0 L Phosphorus 6.1 H Magnesium 1.8 Total Bilirubin 0.3 AST 5382 H ALT 1994 H Alkaline Phosphatase 103 D Ammonia Creatine Kinase Creatine Kinase Index CK-MB (CK-2) Troponin I Total Protein 5.4 L Albumin 2.7 L Vitamin B12 2781 H Serum Folate 26 H TSH 0.83 Urine Color Urine Appearance Urine pH Ur Specific [place] Urine Protein Urine Glucose (UA) Urine Ketones Urine Blood Urine Nitrite Urine Bilirubin Urine Urobilinogen Ur Leukocyte Esterase Urine WBC (Auto) Urine RBC (Auto) Ur Epithelial Cells Calcium Oxalate Crystal Amorphous Urates Urine Bacteria Urine Mucus Salicylates Opiates Screen Methadone Screen Barbiturate Screen Phencyclidine Screen Ur Amphetamines Screen MDMA (Ecstasy) Screen Benzodiazepines Screen Cocaine Screen U Marijuana (THC) Screen Alcohol, Quantitative 02/12/18 02/12/18 02/12/18 05:30 05:30 13:20 WBC RBC Hgb Hct MCV MCH MCHC RDW Plt Count MPV Absolute Neuts (auto) Neutrophils % Lymphocytes % Monocytes % Eosinophils % Basophils % Nucleated RBC % PT with INR INR PTT (Actin FS) Anticoagulation Therapy Puncture Site Patient Temperature ABG pH ABG pCO2 at Pt Temp ABG pO2 at Pt Temp ABG HCO3 ABG O2 Sat (Measured) ABG O2 Content ABG Base Excess Sukhwinder Test VBG pH POC VBG pCO2 POC VBG pO2 Mixed VBG HCO3 Carboxyhemoglobin Methemoglobin O2 Delivery Device Oxygen Flow Rate Vent Mode Vent Rate Mechanical Rate PEEP Pressure Support Vent Sodium 146 H Potassium 4.6 Chloride 116 H Carbon Dioxide 19 L Anion Gap 11 BUN 32 H Creatinine 2.9 H Creat Clearance w eGFR 16.39 POC Glucometer Random Glucose 99 Lactic Acid Calcium 7.4 L Phosphorus Magnesium Total Bilirubin AST ALT Alkaline Phosphatase Ammonia Creatine Kinase 44057 H Creatine Kinase Index 1.3 CK-MB (CK-2) 166.5 H Troponin I 8.15 H* 9.45 H* Total Protein Albumin Vitamin B12 Cancelled Serum Folate Cancelled TSH Cancelled Urine Color Urine Appearance Urine pH Ur Specific [place] Urine Protein Urine Glucose (UA) Urine Ketones Urine Blood Urine Nitrite Urine Bilirubin Urine Urobilinogen Ur Leukocyte Esterase Urine WBC (Auto) Urine RBC (Auto) Ur Epithelial Cells Calcium Oxalate Crystal Amorphous Urates Urine Bacteria Urine Mucus Salicylates Opiates Screen Methadone Screen Barbiturate Screen Phencyclidine Screen Ur Amphetamines Screen MDMA (Ecstasy) Screen Benzodiazepines Screen Cocaine Screen U Marijuana (THC) Screen Alcohol, Quantitative 02/12/18 02/12/18 02/12/18 13:20 13:20 13:20 WBC 13.4 H RBC 3.64 Hgb 11.7 Hct 36.5 MCV 100.4 H MCH 32.1 MCHC 32.0 RDW 15.9 H Plt Count 155 MPV 8.7 Absolute Neuts (auto) Neutrophils % Lymphocytes % Monocytes % Eosinophils % Basophils % Nucleated RBC % PT with INR INR PTT (Actin FS) Anticoagulation Therapy Puncture Site Patient Temperature ABG pH ABG pCO2 at Pt Temp ABG pO2 at Pt Temp ABG HCO3 ABG O2 Sat (Measured) ABG O2 Content ABG Base Excess Sukhwinder Test VBG pH POC VBG pCO2 POC VBG pO2 Mixed VBG HCO3 Carboxyhemoglobin Methemoglobin O2 Delivery Device Oxygen Flow Rate Vent Mode Vent Rate Mechanical Rate PEEP Pressure Support Vent Sodium Potassium Chloride Carbon Dioxide Anion Gap BUN Creatinine Creat Clearance w eGFR POC Glucometer Random Glucose Lactic Acid 3.2 H* Calcium Phosphorus Magnesium Total Bilirubin AST ALT Alkaline Phosphatase Ammonia 25.0 Creatine Kinase Creatine Kinase Index CK-MB (CK-2) Troponin I Total Protein Albumin Vitamin B12 Serum Folate TSH Urine Color Urine Appearance Urine pH Ur Specific [place] Urine Protein Urine Glucose (UA) Urine Ketones Urine Blood Urine Nitrite Urine Bilirubin Urine Urobilinogen Ur Leukocyte Esterase Urine WBC (Auto) Urine RBC (Auto) Ur Epithelial Cells Calcium Oxalate Crystal Amorphous Urates Urine Bacteria Urine Mucus Salicylates Opiates Screen Methadone Screen Barbiturate Screen Phencyclidine Screen Ur Amphetamines Screen MDMA (Ecstasy) Screen Benzodiazepines Screen Cocaine Screen U Marijuana (THC) Screen Alcohol, Quantitative 02/12/18 02/12/18 13:20 14:02 WBC RBC Hgb Hct MCV MCH MCHC RDW Plt Count MPV Absolute Neuts (auto) Neutrophils % Lymphocytes % Monocytes % Eosinophils % Basophils % Nucleated RBC % PT with INR INR PTT (Actin FS) Anticoagulation Therapy Puncture Site Patient Temperature ABG pH ABG pCO2 at Pt Temp ABG pO2 at Pt Temp ABG HCO3 ABG O2 Sat (Measured) ABG O2 Content ABG Base Excess Sukhwinder Test VBG pH POC VBG pCO2 POC VBG pO2 Mixed VBG HCO3 Carboxyhemoglobin Methemoglobin O2 Delivery Device Oxygen Flow Rate Vent Mode Vent Rate Mechanical Rate PEEP Pressure Support Vent Sodium Potassium Chloride Carbon Dioxide Anion Gap BUN Creatinine Creat Clearance w eGFR POC Glucometer Random Glucose Lactic Acid Calcium Phosphorus Magnesium Total Bilirubin AST ALT Alkaline Phosphatase Ammonia Creatine Kinase Cancelled Creatine Kinase Index CK-MB (CK-2) Troponin I Cancelled Total Protein Albumin Vitamin B12 Serum Folate TSH Urine Color Samara Urine Appearance Turbid Urine pH 5.0 Ur Specific [place] 1.021 Urine Protein 2+ H Urine Glucose (UA) Negative Urine Ketones Trace H Urine Blood 3+ H Urine Nitrite Negative Urine Bilirubin Negative Urine Urobilinogen Negative Ur Leukocyte Esterase 1+ H Urine WBC (Auto) 3-5 Urine RBC (Auto) Negative Ur Epithelial Cells Moderate Calcium Oxalate Crystal Few Amorphous Urates Many Urine Bacteria Urine Mucus Salicylates Opiates Screen Methadone Screen Barbiturate Screen Phencyclidine Screen Ur Amphetamines Screen MDMA (Ecstasy) Screen Benzodiazepines Screen Cocaine Screen U Marijuana (THC) Screen Alcohol, Quantitative Active Medications Generic Name Dose Route Start Last Admin Trade Name Freq PRN Reason Stop Dose Admin Albuterol Sulfate 1 amp 02/12/18 09:54 02/12/18 11:45 Ventolin 0.5% - NEB 1 amp Q4H PRN Administration SHORT OF BREATH/WHEEZING Chlorhexidine Gluconate 1 applic 02/12/18 22:00 Hibiclens For Decolonization - TP HS BRANDON Heparin Sodium (Porcine) 5,000 unit 02/12/18 06:00 02/12/18 14:05 Heparin - SQ 5,000 unit TID BRANDON Administration Piperacillin Sod/Tazobactam 50 mls @ 100 mls/hr 02/12/18 14:30 Sod 2.25 gm/ Dextrose IVPB Q8H BRANDON Protocol Dextrose/Sodium Chloride 1,000 mls @ 150 mls/hr 02/12/18 15:19 D5-1/2ns - IV ASDIR BRANDON Levetiracetam 500 mg 02/11/18 23:15 02/12/18 10:11 Keppra Injection - IVPB 500 mg BID BRANDON Administration Mupirocin 1 applic 02/12/18 10:00 02/12/18 10:11 Bactroban Ointment (For Decolonization) - NS 02/17/18 09:59 1 applic BID BRANDON Administration Ondansetron HCl 4 mg 02/12/18 00:21 Zofran Injection IVPB Q6H PRN NAUSEA Pantoprazole Sodium 40 mg 02/12/18 10:00 02/12/18 10:11 Protonix Iv IVPUSH 40 mg DAILY BRANDON Administration ASSESSMENT/PLAN: 62 y/o female with PMH of chronic back pain (takes oxycodone, fentanyl patch, gabapentin), seizures, anxiety/depression, was brought in to the ED after being found unresponsive by daughter with a fentanyl patch in her mouth leading to subsequent intubation then extubation in the ER. Now with altered mental status , new NSTEMI, QUINTEN, possible new right sided weakness. Neuro: altered mental status posisbly 2/2 toxic ingestion vs. stroke -repeat head CT shows no acute intracranial pathology; patient going for MRI -UTOX came back showing benzos but no opiates- repeat UTOX -keppra 500 BID for seizure prophylaxis -neuro checks Cardio: found to have new NSTEMI; t wave inversion seen in anterior and septal leads on EKG -cannot start heparin drip/plavix in setting of bright red blood per rectum and questionable spotting -as per cardio, can start ASA 81 daily -monitor CBC,Hgb -trops: 1.6;8.1;9.4, trop #4 trending for 6pm GI: transaminitis possibly 2/2 toxic ingestion v. congestion - hepatitis panel pending -acetominophen level low -f/u liver ultrasound -found to also have blood streaked bowel movements and found to be guaiac positive -on ab/pelvis ultrasound found to have collapsed colon; colitis could not be ruled out Renal: QUINTEN/rhabdo -Cr found to be 2.7 -CPK found to be 10,293- repeat in AM -renal u/s pending - urine electrolytes pending -monitor urine output and Cr -repeat BMP this evening F/E/N: d51/2NS@150mls/hr replete electrolytes when necessary pureed diet dispo: continued ICU monitoring - Visit type - Emergency Visit Emergency Visit: Yes ED Registration Date: 02/11/18 Care time: The patient presented to the Emergency Department on the above date and was hospitalized for further evaluation of their emergent condition. - New Patient This patient is new to me today: Yes Date on this admission: 02/12/18 - Critical Care Critical Care patient: Yes Total Critical Care Time (in minutes): 35 Critical Care Statement: The care of this patient involved high complexity decision making to prevent further life threatening deterioration of the patient 's condition and/or to evaluate & treat vital organ system(s) failure or risk of failure.
--- NOTE | 2018-02-12 15:46 | PN ---
Physical Exam: SUBJECTIVE: Patient is a 62 y/o female with a history of back pain, anxiety, depression who presented due to AMS. She is lethargic during exam but A & O x3. Patient has no complaints. According to nursing staff she has been trying to get out of bed. OBJECTIVE: Vital Signs Temperature 99.2 F 02/12/18 13:18 Pulse Rate 88 02/12/18 13:18 Respiratory Rate 18 02/12/18 13:18 Blood Pressure 105/56 02/12/18 13:18 O2 Sat by Pulse Oximetry (%) 96 02/12/18 10:00 GENERAL: The patient is awake, alert, and fully oriented, in no acute distress. HEAD: Normal with no signs of trauma. EYES: PERRL, extraocular movements intact, ENT: oropharynx clear without exudates, moist mucous membranes. NECK: Trachea midline, full range of motion, supple. LUNGS: Breath sounds equal, clear to auscultation bilaterally HEART: Regular rate and rhythm, S1, S2 without murmur, rub or gallop. ABDOMEN: Soft, nontender, nondistended, normoactive bowel sounds EXTREMITIES: 2+ pulses, warm, well-perfused, no edema. NEUROLOGICAL: Cranial nerves II through XII grossly intact, 5/5 strength on LUE , RUE not able to abduct, not able to dorsriflex and plantar flex right foot, sensations intact Rectal: no external hemrrhoids noted, no internal felt, no stool in the vault, positive FOBT PSYCH: Normal mood, normal affect. SKIN: Warm, dry, normal turgor, no rashes or lesions noted CBC, BMP 02/12/18 13:20 02/12/18 13:20 Urine Test Results Urine Color Samara 02/12/18 13:20 Urine Appearance Turbid 02/12/18 13:20 Urine pH 5.0 (5.0-8.0) 02/12/18 13:20 Ur Specific [place] 1.021 (1.001-1.035) 02/12/18 13:20 Urine Protein 2+ (NEGATIVE) H 02/12/18 13:20 Urine Glucose (UA) Negative (NEGATIVE) 02/12/18 13:20 Urine Ketones Trace (NEGATIVE) H 02/12/18 13:20 Urine Blood 3+ (NEGATIVE) H 02/12/18 13:20 Urine Nitrite Negative (NEGATIVE) 02/12/18 13:20 Urine Bilirubin Negative (<2.0 mg/dL) 02/12/18 13:20 Ur Leukocyte Esterase 1+ (NEGATIVE) H 02/12/18 13:20 Ur Epithelial Cells Moderate /HPF 02/12/18 13:20 Urine Bacteria Rare /hpf (NONE SEEN) 02/11/18 21:35 Urine Mucus Rare 02/11/18 21:35 Active Medications Albuterol Sulfate (Ventolin 0.5% -) 1 amp NEB Q4H PRN PRN Reason: SHORT OF BREATH/WHEEZING Last Admin: 02/12/18 11:45 Dose: 1 amp Chlorhexidine Gluconate (Hibiclens For Decolonization -) 1 applic TP HS BRANDON Heparin Sodium (Porcine) (Heparin -) 5,000 unit SQ TID [facility] Last Admin: 02/12/18 14:05 Dose: 5,000 unit Dextrose/Sodium Chloride (D5-1/2ns -) 1,000 mls @ 100 mls/hr IV ASDIR [facility] Last Admin: 02/12/18 11:00 Dose: 100 mls/hr Piperacillin Sod/Tazobactam (Sod 2.25 gm/ Dextrose) 50 mls @ 100 mls/hr IVPB Q8H [facility]; Protocol Levetiracetam (Keppra Injection -) 500 mg IVPB BID [facility] Last Admin: 02/12/18 10:11 Dose: 500 mg Mupirocin (Bactroban Ointment (For Decolonization) -) 1 applic NS BID [facility] Stop: 02/17/18 09:59 Last Admin: 02/12/18 10:11 Dose: 1 applic Ondansetron HCl (Zofran Injection) 4 mg IVPB Q6H PRN PRN Reason: NAUSEA Pantoprazole Sodium (Protonix Iv) 40 mg IVPUSH DAILY [facility] Last Admin: 02/12/18 10:11 Dose: 40 mg ASSESSMENT/PLAN: Patient is a 62 y/o female with a history of back pain, anxiety, depression who presented due to AMS. #AMS 2/2 to stroke vs seizure vs overdose - head CT: mild volume loss and chronic microvascular changes - f/u MRI - Keppra 500 mg BID - f/u new u tox, first one possible contaminate - NIH stroke scale : 7 - continue neuro checks - f/u Dr. Baker #tropinemia 2/2 to ischemic demand - trending up 9.45 - f/u Dr. Choi - f/u echo: left ventricle is hyperdynamic, EF: 70%, mitral regurgitation, moderate tricuspid regurg, pulmonic valve - aspirin 162 one time dose #hyperkalemia: resolved - albuterol treatment #blood bowel movements 2/2 to possible ischemia - f/u Brigida - FOBT positive #SIRS - Zosyn 2.25 gm - f/u Dr. Kellogg #QUINTEN 2/2 to prerenal azotemina - f/u renal US - urine lytes #ppx: - DVT: heparin 5,000 TID - GI: protonix 40 IV - zofran 4mg IV #FEN - thin liquids - D5 1/2 NS @ 150 Dispo: Visit type - Emergency Visit Emergency Visit: No - New Patient This patient is new to me today: Yes Date on this admission: 02/12/18 - Critical Care Critical Care patient: No
[2018-02-12] MEDS ORDERED: DEXTROSE 5%-WATER - 50 ML IVPB ONE ×2 (15:57→18:45)
[2018-02-12] MEDS ORDERED: PIPERACILLIN/TAZOBACTAM 2.25 GM VIAL IVPB ONE ×2 (15:57→18:45)
--- NOTE | 2018-02-12 18:19 | CON.NEURO ---
Consult - Past Medical History ...: No Musculoskeletal: Yes: Chronic low back pain - Alcohol/Substance Use Hx Alcohol Use: No - Smoking History Smoking history: Unknown if ever smoked Have you smoked in the past 12 months: Yes Aproximately how many cigarettes per day: 7 - Social History Usual Living Arrangement: Other (daughter and grand daughter.) ADL: Family Assistance History of Recent Travel: No Home Medications - Allergies Allergies/Adverse Reactions: Allergies Allergy/AdvReac Type Severity Reaction Status Date / Time lactose AdvReac Unknown Verified 02/11/18 21:25 - Home Medications Home Medications: Ambulatory Orders Citalopram Hydrobromide [Celexa -] 10 mg PO DAILY #14 tablet 06/09/17 Gabapentin 800 mg PO TID 02/12/18 oxyCODONE HCL [Roxicodone -] 10 mg PO Q6H PRN MDD 40 02/12/18 Physical Exam-Neuro Vital Signs: Vital Signs Temperature 99.2 F 02/12/18 13:18 Pulse Rate 90 02/12/18 16:00 Respiratory Rate 13 02/12/18 16:00 Blood Pressure 111/59 02/12/18 16:00 O2 Sat by Pulse Oximetry (%) 96 02/12/18 10:00 Labs: CBC, BMP 02/12/18 13:20 02/12/18 16:10 INR, PTT INR 1.13 (0.83-1.09) H 02/11/18 19:50 Assessment/Plan cc right sided hemiparesis HPI 62 year old female history of chronic low back pain , anxiety , depression, epilepsy brought to hospital for opioid overdose. She was intubated and now she is being extubated. Initially she thought to be Hepatic encephalopathy vs seiizure vs septicemic. She is extubated and now not able to move right arm and leg. Patient also feeling right arm and leg is asleep. Her urine was positive benzo and a fentanyl patch was found in her mouth. PAST MEDICAL HISTORY: Chronic back pain Anxiety, panic attacks Depression ?Seizure disorder PAST SURGICAL HISTORY: Appendectomy ORIF, R tibia herniated disc repair Social History: Smokin sticks per day Alcohol:denies ETOH use Drugs: denies illicit drug use Allergies lactose Adverse Reaction (Unknown, Verified 02/11/18 21:25) HOME MEDICATIONS: Home Medications Medication Instructions Recorded Carisoprodol [Soma] 0 mg PO DAILY 12/17/16 Citalopram Hydrobromide [Celexa -] 10 mg PO DAILY #14 tablet 06/09/17 Acetaminophen [Tylenol .Regular 650 mg PO Q4H PRN tablet 06/12/17 Strength -] Calcium 500Mg/Vit-D 200 Units 1 tab PO BID tab 06/12/17 [Os-Romel 500+D -] FENTANYL 75mcg PATCH [DURAGESIC 1 patch TD Q72H patch.td72 MDD 1 06/12/17 75mcg PATCH -] Fentanyl Patch Waste [Duragesic 1 each TD PRN PRN each 06/12/17 Patch Waste] Ferrous Sulfate [Feosol] 325 mg PO BIDWM ud 06/12/17 Gabapentin [Neurontin -] 300 mg PO BID capsule 06/12/17 Multivitamins [Multivit ([facility] 1 tab PO DAILY tab 06/12/17 Formulary)] oxyCODONE HCL [Roxicodone -] 10 mg PO Q4H PRN #18 tablet MDD 60 06/12/17 FH,ROS,SH reviewed in chart Neurological Examination Alert oriented x 3, she knows she is in hospital and what month is this eomi, pupils is reactive, no face as ymmetry right upper and lower extremity is weak She do have weakness of right wrist extension, tricept and deltoid weakness right lower extremity she has weakness more pronounced on right dorsiflexion sensation is normal to pin prick ct head unrmarkable Assessment- 62 year old female with multiple comorbidity came with drug overdose vs septic encephalopathy and septicemia now recovering and found to have right hemiparesis Plan ct head is normal - mri of brain ( ordered) - continue aspirin and statin is on hold - once mri is positive for stroke would reivew need for aspirin and statin further work up can be done once acute stroke confirmed - will continue to follow up [facility] primary team - agree [facility] tele monitoring speech eval, pt and dvt prophylaxis smokign cessation and stroke education carotid ultrasound
[2018-02-12 18:36] LABS: URINE AMPHETAMINES NEGATIVE ng/ml (CUTOFF=500); URINE BARBITURATES NEGATIVE ng/ml (CUTOFF=200)
[2018-02-12 18:37] LABS: COCAINE, UR NEGATIVE ng/ml (CUTOFF=300); METHADONE, UR NEGATIVE ng/ml (CUTOFF=300); PHENCYCLIDINE,URINE NEGATIVE ng/ml (CUTOFF=25)
[2018-02-12 18:50] LABS: URINE BENZODIAZEPINES POSITIVE ng/ml (CUTOFF=200)
[2018-02-12 18:51] LABS: OPIATES, URI POSITIVE ng/ml (CUTOFF=300)
--- NOTE | 2018-02-12 18:54 | CONS ---
INFECTIOUS DISEASE CONSULTATION DATE OF CONSULTATION: DATE OF DICTATION: 02/12/2018 This is a 62-year-old lady with a history of seizures and chronic pain, who was found unresponsive by her daughter. The patient's granddaughter apparently saw the patient at 11:00 in the morning when she was okay. Around 4:00, the daughter noticed her unresponsive with a fentanyl patch in her mouth. She had a friend call EMS, but apparently, the patient did not get to the emergency room at [facility] until 7: 00. The patient was intubated in the ambulance. They gave 6 mg of Narcan. Her blood pressure was low, 86/45. Her O2 saturation was only 73%, and her rectal temperature was 99.5. Her hospital course was notable. She had multiple imaging studies. She had a head CT that showed some mild sinusitis, but otherwise, it was unremarkable. She had some mild volume loss. She had CAT scans of her chest, abdomen, and pelvis that were notable for no gross lung disease, and in the abdomen, again, there was no evidence of small bowel obstruction. She had collapsed colon, and there was no free air or free fluid identified. Per the admitting H&P, she apparently had vomiting and diarrhea in the ER after she got to the emergency room. She was extubated in the ED. ALLERGIES: She has no known drug allergies. SOCIAL HISTORY: She smokes 7 cigarettes a day and uses opioids for pain control. PAST MEDICAL HISTORY: She has a history of appendectomy, herniated disks, and scoliosis. As well, she has chronic back pain, anxiety and panic attacks, depression, and a questionable seizure history. She has had an ORIF of her right tibia and herniated disk repair. She is LACTOSE intolerant. MEDICATIONS AT HOME: Include Soma, Celexa, calcium with vitamin D, fentanyl patch, Feosol, Neurontin, multivitamins, and oxycodone. REVIEW OF SYSTEMS: Not available. HOSPITAL COURSE: She was extubated and responsive. She is unable to really give any history, though. She has no complaints of chest pain. She denies abdominal pain or shortness of breath. She knows she is in the hospital, and she knows her name. PHYSICAL EXAMINATION: Vital Signs: Her temperature is 99.2, pulse of 90, blood pressure of 111/59, respiratory rate is 13, saturating 96% on 4 L. HEENT: She is normocephalic. Eyes are anicteric. Neck: Supple. Lungs: Clear to auscultation. Heart: Regular rate and rhythm. Abdomen: Soft, nontender. Extremities: Without edema. LABORATORY DATA: White count is 13.5, hemoglobin 11.4, platelets are 155. BUN is 26 and creatinine 2.7 with a lactic acid of 3.3. AST of 5382, ALT of 1994. CPK is 10,293, and troponin is 8.15. Her urine and blood cultures are pending. She had a rectal exam and was found to have guaiac-positive stools. In summary, this is a 62-year-old woman admitted after being found unresponsive with a history of substance use, now extubated and awake. She had some right upper extremity weakness, was felt to have a possible stroke, and is being evaluated by Neurology for such. We are asked to see her for possible ischemic bowel as she now has guaiac-positive stools in the setting of hypotension on arrival to the emergency room. She has evidence of rhabdomyolysis and acute [id number] WI as well as acute renal failure. Would suggest at this time that we treat her with piperacillin/tazobactam as colitis cannot be ruled out. Cultures have been sent. Further recommendations to follow. VENANCIO BALDERAS M.D. [id number] MTDD
[2018-02-12 18:58] LABS: HEMATOCRIT 35.3 % (32.4-45.2); HEMOGLOBIN 11.3 GM/dL (10.7-15.3); MCH 31.9 pg (25.7-33.7); MEAN CELL VOLUME 99.5 fl (80-96); PLATELET COUNT 165 K/MM3 (134-434); RBC 3.54 M/mm3 (3.60-5.2); WHITE BLOOD COUNT 11.6 K/mm3 (4.0-10.0)
[2018-02-12 19:36] LABS: ANION GAP 12 MMOL/L (8-16); BLOOD UREA NITROGEN 36 mg/dL (7-18); CALCIUM 7.4 mg/dL (8.5-10.1); CHLORIDE 115 mmol/L (98-107); CO2 19 mmol/L (21-32); CREATININE 3.3 mg/dL (0.55-1.02); GLUCOSE,RANDOM 152 mg/dL (74-106); POTASSIUM 4.7 mmol/L (3.5-5.1); SODIUM 146 mmol/L (136-145)
[2018-02-12] MEDS: CHLORHEXIDINE GLUCONATE 4% CLEANSER FOR DECOLONIZATION TP SCH (21:13)
[2018-02-13] MEDS ORDERED: SODIUM CHLORIDE 0.9% 500 ML INFUS.BAG IV ONE (00:57)
[2018-02-13] MEDS ORDERED: DEXTROSE 5%-WATER - 50 ML IVPB ONE ×3 (01:14→15:31)
[2018-02-13] MEDS ORDERED: PIPERACILLIN/TAZOBACTAM 2.25 GM VIAL IVPB ONE ×3 (01:14→15:31)
[2018-02-13] MEDS ORDERED: SODIUM CHLORIDE 1,000 ML IV ONE (01:15)
[2018-02-13] MEDS: PIPERACILLIN/TAZOB 2.25 GM 2.25 GM in DEXTROSE 5%-WATER - 50 ML IVPB SCH ×3 (01:33→17:16)
[2018-02-13 06:10] LABS: HEP.C VIRUS AB <0.1 s/co ratio (0.0-0.9)
[2018-02-13] MEDS: HEPARIN NA (PORCINE) 5,000 UNITS/ML 1ML VIAL SQ SCH ×3 (06:27→21:29)
[2018-02-13 06:34] LABS: HEMATOCRIT 33.1 % (32.4-45.2); HEMOGLOBIN 10.5 GM/dL (10.7-15.3); MCH 31.5 pg (25.7-33.7); MCHC 31.6 g/dl (32.0-36.0); MEAN CELL VOLUME 99.4 fl (80-96); MEAN PLT VOLUME 9.4 fl (7.5-11.1); PLATELET COUNT 131 K/MM3 (134-434); RBC 3.33 M/mm3 (3.60-5.2); WHITE BLOOD COUNT 13.8 K/mm3 (4.0-10.0)
[2018-02-13 06:54] LABS: ALBUMIN 2.2 g/dl (3.4-5.0); ANION GAP 11 MMOL/L (8-16); BLOOD UREA NITROGEN 41 mg/dL (7-18); CALCIUM 7.2 mg/dL (8.5-10.1); CHLORIDE 114 mmol/L (98-107); CO2 18 mmol/L (21-32); GLUCOSE,RANDOM 136 mg/dL (74-106); MAGNESIUM 1.6 mg/dL (1.8-2.4); POTASSIUM 4.7 mmol/L (3.5-5.1); SODIUM 143 mmol/L (136-145)
[2018-02-13 07:09] LABS: ALK PHOS 76 U/L (45-117); BILIRUBIN,TOTAL 0.3 mg/dL (0.2-1.0); CREATININE 3.9 mg/dL (0.55-1.02); PHOSPHOROUS 3.7 mg/dL (2.5-4.9); TOT PROT 4.5 g/dl (6.4-8.2)
[2018-02-13 07:14] LABS: SGOT/AST 1859 U/L (15-37); SGPT/ALT 1270 U/L (12-78)
--- NOTE | 2018-02-13 08:16 | PN ---
Progress Note (short form) - Note Progress Note: PULM/CCM Patient seen and examined in the ICU. Confused but C & A, NAD, no reported new weakness, R side seems to be improving, CA Doppler does show stenosis in the R, still w/ occasional diarrhea. Active Medications Albuterol Sulfate (Ventolin 0.5% -) 1 amp NEB Q4H PRN PRN Reason: SHORT OF BREATH/WHEEZING Last Admin: 02/12/18 11:45 Dose: 1 amp Aspirin (Ecotrin -) 81 mg PO DAILY [facility] Chlorhexidine Gluconate (Hibiclens For Decolonization -) 1 applic TP HS BRANDON Last Admin: 02/12/18 21:13 Dose: 1 applic Citalopram Hydrobromide (Celexa -) 10 mg PO DAILY [facility] Heparin Sodium (Porcine) (Heparin -) 5,000 unit SQ TID [facility] Last Admin: 02/13/18 06:27 Dose: 5,000 unit Piperacillin Sod/Tazobactam (Sod 2.25 gm/ Dextrose) 50 mls @ 100 mls/hr IVPB Q8H-IV BRANDON; Protocol Last Admin: 02/13/18 01:33 Dose: 100 mls/hr Sodium Chloride (Normal Saline -) 1,000 mls @ 125 mls/hr IV ASDIR BR[facility]ON Levetiracetam (Keppra Injection -) 500 mg IVPB BID [facility] Last Admin: 02/12/18 21:13 Dose: 500 mg Mupirocin (Bactroban Ointment (For Decolonization) -) 1 applic NS BID [facility] Stop: 02/17/18 09:59 Last Admin: 02/12/18 21:13 Dose: 1 applic Ondansetron HCl (Zofran Injection) 4 mg IVPB Q6H PRN PRN Reason: NAUSEA Pantoprazole Sodium (Protonix Iv) 40 mg IVPUSH DAILY [facility] Last Admin: 02/12/18 10:11 Dose: 40 mg Vital Signs Period Temp Pulse Resp BP Sys/Gruber Pulse Ox Last 24 Hr 98.7 F-100 F 86-95 13-22 105-146/50-68 97-97 Intake & Output 02/10/18 02/11/18 02/12/18 02/13/18 23:59 23:59 23:59 23:59 Intake Total 4125 1935 Output Total 300 150 Balance 3825 1785 Weight 68.039 kg 55.934 kg 58.423 kg GEN: Middle aged woman in bed, NAD PULM: CTAB CV: cor-RR ABD: Hyperactive BS but S/S N/T N/D X4Q EXT: + Pulses, WWPX4, (-) edema CBC, BMP 02/13/18 05:30 02/13/18 05:30 Microbiology 02/11/18 19:50 Blood - Peripheral Venous Blood Culture - Preliminary NO GROWTH OBTAINED AFTER 24 HOURS, INCUBATION TO CONTINUE FOR 4 DAYS. 02/11/18 19:50 Blood - Peripheral Venous Blood Culture - Preliminary NO GROWTH OBTAINED AFTER 24 HOURS, INCUBATION TO CONTINUE FOR 4 DAYS. RECENT STUDIES TO NOTE: CA Doppler 02/12: Moderate stenosis right carotid arterial system. Consider follow-up MRA NCHCT 02/12: Mild volume loss and periventricular chronic microvascular ischemic disease changes. No gross acute intracranial pathology is identified. Correlate clinically to determine further evaluation and follow-up. 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 S/p acute hypoxic respiratory failure S/p lactic acidosis Elevated troponin QUINTEN Transaminitis Chronic back pain h/o of fentanyl overuse Possible history of seizure disorder Depression Anxiety PLAN: IVFs MRI/MRA Brain Follow cultures Keppra 500 mg BID started for seizure prophylaxis Monitor for withdrawal Transfer to Floor for cont Medicine W/u Critical Care Total Critical Care Time (in minutes): 38 Critical Care Statement: The care of this patient involved high complexity decision making to prevent further life threatening deterioration of the patient 's condition and/or to evaluate & treat vital organ system(s) failure or risk of failure.
--- NOTE | 2018-02-13 08:44 | PN ---
Teaching Attending Note Name of Resident: Geo Trimble ATTENDING PHYSICIAN STATEMENT I saw and evaluated the patient. I reviewed the resident's note and discussed the case with the resident. I agree with the resident's findings and plan as documented. SUBJECTIVE: fever this am. has no abd pain, had no GI bleed last night . No SOB . feels tired . per RN: no hemotchezia, seizures, or other events last night . OBJECTIVE: NAD, more awake , [place] location , age , , and month not date . HEENT: No facial droop, round equal pupils. dry MM. Cv: RRR, no MRG Lungs: CTAB Abd: soft, minimal tendernes in RUQ with deep palpation , but Neg Grewal's . no rebound tenderness or guarding. nl BS Ext: no edema , no erythema. Neuro: EOMi, . no facial droop, round equal pupils , reactive to light. Strength: RUE: shoulder abduction 2, shoulder flexion 2, biceps 5, triceps 5/5. hand manifest/order organizer print orders 4/5. LUE: shoulder abduction 5/5, biceps 5/5 , triceps 5/5 .hand manifest/order organizer print orders 5/5 . RLE; hip flexion 5/5, knee flexion 5/5 , ankle dorsiflexion and plantar flexion 2/5 LLE: hip flexion 5/5 , knee flexion /extension 5/5/ , ankle dorsiflexionand plantarflexion 5/5 . reflexes : 1+ knee jerk and 2+ biceps b/l. Nl sensation to light touch all over ASSESSMENT AND PLAN: 62 y/o 62 y/o lady with h/o chronic opioids use, possible seizure disorder, anxiety, depression and panic attacks who was brought to ER due to unresponsiveness 1- Unresponsiveness/encephalopathy: opioids overdose vs stroke, seizure with prolonged postictal period, vs toxic metabolic - neuro exam shows improved RUE strength and improved R ankle movement - cont ASA - follow MRI - tele with short episode of ? SVT - can't use statins - cont Keppra 2-Hyperkalemia: likely form renal failure,resolved 3- QUINTEN: Possible ATN from transient hypotension /sepsis. oligouric 300 cc yesterday - IVF. change to NS - renal US unremarkable. urine electrolytes missing Urine cr. check urine protein /cr. - renal consult 4- Rhabdomyolysis: IVF , follow CPK 5- Transaminitis : improved. has fever and dilation on CBD o n US..---> cholangitis - check MRCP - will notify GI - follow hepatitis panel , and other serology - cont zosyn , follow blood cx 6- Metabolic acidosis : lactic acid normalized but still with Non AG acidosis . ? due to diarrhea . monitor 7- NSTEMI: possible demand, - cont ASA . - can't use statin - tele as above 8- Rectal bleed : ishcemia vs internal hemorrhoids. resolved . stable HB monitor 9- Opioid use: monitor for any signs of withdrawal. might need to place her back on some opioids
--- NOTE | 2018-02-13 08:52 | PN ---
Progress Note (short form) - Note Progress Note: awake and alert no fevers no chest pain poor urine output-150 cc overnight no abdominal pain Vital Signs Period Temp Pulse Resp BP Sys/Gruber Pulse Ox Last 24 Hr 98.7 F-100 F 86-95 13-22 105-146/50-68 96-97 cor-rrr lungs decreased bs at bases abd soft,nt ext no edema frazier CBC, BMP 02/13/18 05:30 02/13/18 05:30 Microbiology 02/11/18 19:50 Blood - Peripheral Venous Blood Culture - Preliminary NO GROWTH OBTAINED AFTER 24 HOURS, INCUBATION TO CONTINUE FOR 4 DAYS. 02/11/18 19:50 Blood - Peripheral Venous Blood Culture - Preliminary NO GROWTH OBTAINED AFTER 24 HOURS, INCUBATION TO CONTINUE FOR 4 DAYS. liver sono- cbd and intrahepatic ductal dilatation imp/reccd ?choledocholithiasis- for MRCP QUINTEN rhabdomyolysis NSTEMI transaminases improved ?ischemic colitis from hypotension continue zosyn, renally dosed d/w hospitalist
--- NOTE | 2018-02-13 08:53 | PN ---
Progress Note (short form) - Note Progress Note: 62 year old female found to have right sided hemiparesis after she was extubated. She has history of chronic low back pain , anxiety , depression, epilepsy brought to hospital for opioid overdose. She was intubated at hospital admission. Initially she thought to be Hepatic encephalopathy vs seiizure vs septicemic. She is extubated and now not able to move right arm and leg. She is still sleepy but oriented x 3. and complain that she feel weak all over the body. Neurological Examination Alert oriented x 3, she knows she is in hospital and what month is this eomi, pupils is reactive, no face as ymmetry right upper and lower extremity is weak She do have weakness of right wrist extension, tricept and deltoid weakness right lower extremity she has weakness more pronounced on right dorsiflexion sensation is normal to pin prick exam is unchanged from yeserday ct head unrmarkable mri of brain is pending carotid ultrasound done and results pending Assessment- 62 year old female with multiple comorbidity came with drug overdose vs septic encephalopathy and septicemia now recovering and found to have right hemiparesis Plan ct head is normal - continue aspirin and statin is on hold - once mri is positive for stroke would reivew need for aspirin and statin further work up can be done once acute stroke confirmed - will continue to follow up [facility] primary team speech eval, pt and dvt prophylaxis smokign cessation and stroke education Follow up on carotid ultrasound result Thanking you so much Brendon Baker MD
[2018-02-13] MEDS ORDERED: SODIUM CHLORIDE 1,000 ML IV SCH (09:00)
--- NOTE | 2018-02-13 09:33 | PN ---
Physical Exam: SUBJECTIVE: Patient seen and examined. c/o right arm and leg having a "sleeping" feeling. want to eat. continues to have diarrhea denies chest pain, abdominal pain, SOB, visual disturbances, cough, palpitations. awaiting MRCP and MRI to be done today OBJECTIVE: Vital Signs Period Temp Pulse Resp BP Sys/Gruber Pulse Ox Last 24 Hr 98.7 F-100 F 86-95 13-22 105-146/50-68 96-97 GENERAL: The patient is awake, alert, and fully oriented to person, place, date , in no acute distress. HEAD: Normal with no signs of trauma. EYES: PERRL, extraocular movements intact, sclera anicteric, conjunctiva clear. No ptosis. ENT: oropharynx clear without exudates, dry mucous membranes. NECK: Trachea midline, full range of motion, supple. LUNGS: Breath sounds equal, clear to auscultation bilaterally, no wheezes, no crackles, no accessory muscle use. HEART: Regular rate and rhythm, S1, S2 without murmur, rub or gallop. ABDOMEN: Soft, nontender, nondistended, normoactive bowel sounds, no guarding, no rebound, no hepatosplenomegaly, no masses. EXTREMITIES: 2+ radial and DP pulses, warm, well-perfused, no edema. NEUROLOGICAL: Cranial nerves II through XII grossly intact. Normal speech, facial symmetry. right 4/5 shoulder extension and flexion, biceps and triceps flexion and extension, 4/5 hip extension and flexion, 5/5 knee extension and flexion, 5/5 dorsi and planta flexion left: 5/5 shoulder extension and flexion, biceps and triceps flexion and extension, 5/5 hip/knee/ankle extension and flexion DTR+ at biceps/triceps/knee/ankle 2+ sensation in hand, arm, thigh, lower leg and feet bilaterally is equal and intact PSYCH: Normal mood, normal affect. SKIN: Warm, dry, normal turgor, no rashes or lesions noted Frazier in place. Laboratory Results - last 24 hr 02/12/18 02/12/18 02/12/18 05:30 13:20 13:20 WBC RBC Hgb Hct MCV MCH MCHC RDW Plt Count MPV Sodium 146 H Potassium 4.6 Chloride 116 H Carbon Dioxide 19 L Anion Gap 11 BUN 32 H Creatinine 2.9 H Creat Clearance w eGFR 16.39 Random Glucose 99 Lactic Acid Calcium 7.4 L Phosphorus Magnesium Total Bilirubin AST ALT Alkaline Phosphatase Ammonia 25.0 Creatine Kinase 23221 H Creatine Kinase Index 1.3 CK-MB (CK-2) 166.5 H Troponin I 9.45 H* Total Protein Albumin Urine Color Urine Appearance Urine pH Ur Specific [place] Urine Protein Urine Glucose (UA) Urine Ketones Urine Blood Urine Nitrite Urine Bilirubin Urine Urobilinogen Ur Leukocyte Esterase Urine WBC (Auto) Urine RBC (Auto) Ur Epithelial Cells Calcium Oxalate Crystal Amorphous Urates Ur Random Sodium Ur Random Potassium Ur Random Chloride Opiates Screen Methadone Screen Barbiturate Screen Phencyclidine Screen Ur Amphetamines Screen MDMA (Ecstasy) Screen Benzodiazepines Screen Cocaine Screen U Marijuana (THC) Screen Hepatitis A IgM Ab Negative Hep Bs Antigen Negative Hep B Core IgM Ab Negative Hepatitis C Antibody <0.1 02/12/18 02/12/18 02/12/18 13:20 13:20 13:20 WBC 13.4 H RBC 3.64 Hgb 11.7 Hct 36.5 MCV 100.4 H MCH 32.1 MCHC 32.0 RDW 15.9 H Plt Count 155 MPV 8.7 Sodium Potassium Chloride Carbon Dioxide Anion Gap BUN Creatinine Creat Clearance w eGFR Random Glucose Lactic Acid 3.2 H* Calcium Phosphorus Magnesium Total Bilirubin AST ALT Alkaline Phosphatase Ammonia Creatine Kinase Creatine Kinase Index CK-MB (CK-2) Troponin I Total Protein Albumin Urine Color [place] Urine Appearance Turbid Urine pH 5.0 Ur Specific [place] 1.021 Urine Protein 2+ H Urine Glucose (UA) Negative Urine Ketones Trace H Urine Blood 3+ H Urine Nitrite Negative Urine Bilirubin Negative Urine Urobilinogen Negative Ur Leukocyte Esterase 1+ H Urine WBC (Auto) 3-5 Urine RBC (Auto) Negative Ur Epithelial Cells Moderate Calcium Oxalate Crystal Few Amorphous Urates Many Ur Random Sodium Ur Random Potassium Ur Random Chloride Opiates Screen Methadone Screen Barbiturate Screen Phencyclidine Screen Ur Amphetamines Screen MDMA (Ecstasy) Screen Benzodiazepines Screen Cocaine Screen U Marijuana (THC) Screen Hepatitis A IgM Ab Hep Bs Antigen Hep B Core IgM Ab Hepatitis C Antibody 02/12/18 02/12/18 02/12/18 14:02 16:10 16:44 WBC RBC Hgb Hct MCV MCH MCHC RDW Plt Count MPV Sodium Potassium 5.0 Chloride Carbon Dioxide Anion Gap BUN Creatinine Creat Clearance w eGFR Random Glucose Lactic Acid Calcium Phosphorus Magnesium Total Bilirubin AST ALT Alkaline Phosphatase Ammonia Creatine Kinase Cancelled Creatine Kinase Index CK-MB (CK-2) Troponin I Cancelled Total Protein Albumin Urine Color Urine Appearance Urine pH Ur Specific [place] Urine Protein Urine Glucose (UA) Urine Ketones Urine Blood Urine Nitrite Urine Bilirubin Urine Urobilinogen Ur Leukocyte Esterase Urine WBC (Auto) Urine RBC (Auto) Ur Epithelial Cells Calcium Oxalate Crystal Amorphous Urates Ur Random Sodium Ur Random Potassium Ur Random Chloride Opiates Screen Positive Methadone Screen Negative Barbiturate Screen Negative Phencyclidine Screen Negative Ur Amphetamines Screen Negative MDMA (Ecstasy) Screen Negative Benzodiazepines Screen Positive Cocaine Screen Negative U Marijuana (THC) Screen Negative Hepatitis A IgM Ab Hep Bs Antigen Hep B Core IgM Ab Hepatitis C Antibody 02/12/18 02/12/18 02/12/18 16:47 18:00 18:00 WBC 11.6 H RBC 3.54 L Hgb 11.3 Hct 35.3 MCV 99.5 H MCH 31.9 MCHC 32.0 RDW 16.0 H Plt Count 165 MPV 9.0 Sodium 146 H Potassium 4.7 Chloride 115 H Carbon Dioxide 19 L Anion Gap 12 BUN 36 H Creatinine 3.3 H Creat Clearance w eGFR 14.12 Random Glucose 152 H Lactic Acid Calcium 7.4 L Phosphorus Magnesium Total Bilirubin AST ALT Alkaline Phosphatase Ammonia Creatine Kinase Creatine Kinase Index CK-MB (CK-2) Troponin I 8.31 H* Total Protein Albumin Urine Color Urine Appearance Urine pH Ur Specific [place] Urine Protein Urine Glucose (UA) Urine Ketones Urine Blood Urine Nitrite Urine Bilirubin Urine Urobilinogen Ur Leukocyte Esterase Urine WBC (Auto) Urine RBC (Auto) Ur Epithelial Cells Calcium Oxalate Crystal Amorphous Urates Ur Random Sodium 30 Ur Random Potassium 66.9 Ur Random Chloride 30 Opiates Screen Methadone Screen Barbiturate Screen Phencyclidine Screen Ur Amphetamines Screen MDMA (Ecstasy) Screen Benzodiazepines Screen Cocaine Screen U Marijuana (THC) Screen Hepatitis A IgM Ab Hep Bs Antigen Hep B Core IgM Ab Hepatitis C Antibody 02/12/18 02/13/18 02/13/18 18:00 00:00 00:00 WBC RBC Hgb Hct MCV MCH MCHC RDW Plt Count MPV Sodium Potassium Chloride Carbon Dioxide Anion Gap BUN Creatinine Creat Clearance w eGFR Random Glucose Lactic Acid 3.3 H* 3.6 H* Calcium Phosphorus Magnesium Total Bilirubin AST ALT Alkaline Phosphatase Ammonia Creatine Kinase Creatine Kinase Index CK-MB (CK-2) Troponin I 7.37 H* Total Protein Albumin Urine Color Urine Appearance Urine pH Ur Specific [place] Urine Protein Urine Glucose (UA) Urine Ketones Urine Blood Urine Nitrite Urine Bilirubin Urine Urobilinogen Ur Leukocyte Esterase Urine WBC (Auto) Urine RBC (Auto) Ur Epithelial Cells Calcium Oxalate Crystal Amorphous Urates Ur Random Sodium Ur Random Potassium Ur Random Chloride Opiates Screen Methadone Screen Barbiturate Screen Phencyclidine Screen Ur Amphetamines Screen MDMA (Ecstasy) Screen Benzodiazepines Screen Cocaine Screen U Marijuana (THC) Screen Hepatitis A IgM Ab Hep Bs Antigen Hep B Core IgM Ab Hepatitis C Antibody 02/13/18 02/13/18 02/13/18 05:30 05:30 05:30 WBC 13.8 H RBC 3.33 L Hgb 10.5 L Hct 33.1 MCV 99.4 H MCH 31.5 MCHC 31.6 L RDW 16.0 H Plt Count 131 L D MPV 9.4 Sodium 143 Potassium 4.7 Chloride 114 H Carbon Dioxide 18 L Anion Gap 11 BUN 41 H Creatinine 3.9 H Creat Clearance w eGFR 11.64 Random Glucose 136 H Lactic Acid 1.8 Calcium 7.2 L Phosphorus 3.7 Magnesium 1.6 L Total Bilirubin 0.3 AST 1859 H ALT 1270 H Alkaline Phosphatase 76 D Ammonia Creatine Kinase 6524 H Creatine Kinase Index 0.9 CK-MB (CK-2) 62.18 H Troponin I 5.73 H* Total Protein 4.5 L Albumin 2.2 L Urine Color Urine Appearance Urine pH Ur Specific [place] Urine Protein Urine Glucose (UA) Urine Ketones Urine Blood Urine Nitrite Urine Bilirubin Urine Urobilinogen Ur Leukocyte Esterase Urine WBC (Auto) Urine RBC (Auto) Ur Epithelial Cells Calcium Oxalate Crystal Amorphous Urates Ur Random Sodium Ur Random Potassium Ur Random Chloride Opiates Screen Methadone Screen Barbiturate Screen Phencyclidine Screen Ur Amphetamines Screen MDMA (Ecstasy) Screen Benzodiazepines Screen Cocaine Screen U Marijuana (THC) Screen Hepatitis A IgM Ab Hep Bs Antigen Hep B Core IgM Ab Hepatitis C Antibody 02/13/18 05:30 WBC RBC Hgb Hct MCV MCH MCHC RDW Plt Count MPV Sodium Potassium Chloride Carbon Dioxide Anion Gap BUN Creatinine Creat Clearance w eGFR Random Glucose Lactic Acid Calcium Phosphorus Magnesium Total Bilirubin AST ALT Alkaline Phosphatase Ammonia Creatine Kinase Creatine Kinase Index CK-MB (CK-2) Troponin I Cancelled Total Protein Albumin Urine Color Urine Appearance Urine pH Ur Specific [place] Urine Protein Urine Glucose (UA) Urine Ketones Urine Blood Urine Nitrite Urine Bilirubin Urine Urobilinogen Ur Leukocyte Esterase Urine WBC (Auto) Urine RBC (Auto) Ur Epithelial Cells Calcium Oxalate Crystal Amorphous Urates Ur Random Sodium Ur Random Potassium Ur Random Chloride Opiates Screen Methadone Screen Barbiturate Screen Phencyclidine Screen Ur Amphetamines Screen MDMA (Ecstasy) Screen Benzodiazepines Screen Cocaine Screen U Marijuana (THC) Screen Hepatitis A IgM Ab Hep Bs Antigen Hep B Core IgM Ab Hepatitis C Antibody Active Medications Generic Name Dose Route Start Last Admin Trade Name Freq PRN Reason Stop Dose Admin Albuterol Sulfate 1 amp 02/12/18 09:54 02/12/18 11:45 Ventolin 0.5% - NEB 1 amp Q4H PRN Administration SHORT OF BREATH/WHEEZING Aspirin 81 mg 02/13/18 10:00 Ecotrin - PO DAILY BRANDON Chlorhexidine Gluconate 1 applic 02/12/18 22:00 02/12/18 21:13 Hibiclens For Decolonization - TP 1 applic HS BRANDON Administration Citalopram Hydrobromide 10 mg 02/13/18 10:00 Celexa - PO DAILY BRANDON Heparin Sodium (Porcine) 5,000 unit 02/12/18 06:00 02/13/18 06:27 Heparin - SQ 5,000 unit TID BRANDON Administration Piperacillin Sod/Tazobactam 50 mls @ 100 mls/hr 02/12/18 14:30 02/13/18 01:33 Sod 2.25 gm/ Dextrose IVPB 100 mls/hr Q8H-IV BRANDON Administration Protocol Sodium Chloride 1,000 mls @ 125 mls/hr 02/13/18 09:00 Normal Saline - IV ASDIR BRANDON Levetiracetam 500 mg 02/11/18 23:15 02/12/18 21:13 Keppra Injection - IVPB 500 mg BID BRANDON Administration Mupirocin 1 applic 02/12/18 10:00 02/12/18 21:13 Bactroban Ointment (For Decolonization) - NS 02/17/18 09:59 1 applic BID BRANDON Administration Ondansetron HCl 4 mg 02/12/18 00:21 Zofran Injection IVPB Q6H PRN NAUSEA Pantoprazole Sodium 40 mg 02/12/18 10:00 02/12/18 10:11 Protonix Iv IVPUSH 40 mg DAILY BRANDON Administration ASSESSMENT/PLAN: 62 yr old woman with hx of polysubstance abuse presents with AMS admitted for further evaluation. #AMS, differentials include hepatic encephalopathy, seizure, drug overdose. ongoing neuro w.u - keppra 500mg BID - brain MRI ordered for further evaluation, head CT x2 without acute pathology - celexa 10mg po daily, pt at times resistant to care, flaca as needed - continue zosyn for broad spectrum coverage given temp 100 and leucocytosis concern for cholangitis, continued diarrhea. stool studies pending. bld cx negative #Hematochezia - improving montor h/h, transfuse as needed to maintian hgb >7.0 - stools studies pending to r.o infectious cause - low suspicion hypotension causing ischemic event, however pt tolerating diet and without abdominal pain - defer heparin and plavix for NSTEMI, appreciate card rec #thrombocytopenia - monitor platelet count, could be due to acute illness #Right sided weakness, improved from yesterday, suspicion is for stroke - continue to evaluate, MRI pending to r/o stroke #Elevated troponins, NSTEMI - likely due to demand ischemia, trending down - echo normal - ASA 81mg po daily - cardio consult: Dr. Choi, continue tele monitoring #QUINTEN - with elevated cpk, suspicious for rhabdo vs ATN - IVF NS @200cc/hr - monitor I&O, frazier in place - monitor Cr level - cpk trending down - LIANET screen and smooth [employer] pending - renal u/s normal Hypomag - replete magnesium #Transminitis - dilated CBD duct, acalculus cholecystitis, MRCP pending for further evaluation - consult: Dr. covington - hold statin #dvt: hep TID Diet: puree dysphagia with ensure and MVI Visit type - Emergency Visit Emergency Visit: No - New Patient This patient is new to me today: Yes Date on this admission: 02/13/18 - Critical Care Critical Care patient: No - Discharge Referral Referred to [facility] No
--- NOTE | 2018-02-13 09:38 | PN ---
Physical Exam: SUBJECTIVE: Patient seen and examined OBJECTIVE: Vital Signs Period Temp Pulse Resp BP Sys/Gruber Pulse Ox Last 24 Hr 98.7 F-100 F 86-95 13-22 105-146/50-68 96-97 GENERAL: The patient is awake, alert, and fully oriented, in no acute distress. HEAD: Normal with no signs of trauma. EYES: PERRL, extraocular movements intact, sclera anicteric, conjunctiva clear. No ptosis. ENT: Ears normal, nares patent, oropharynx clear without exudates, moist mucous membranes. NECK: Trachea midline, full range of motion, supple. LUNGS: Breath sounds equal, clear to auscultation bilaterally, no wheezes, no crackles, no accessory muscle use. HEART: Regular rate and rhythm, S1, S2 without murmur, rub or gallop. ABDOMEN: Soft, nontender, nondistended, normoactive bowel sounds, no guarding, no rebound, no hepatosplenomegaly, no masses. EXTREMITIES: 2+ pulses, warm, well-perfused, no edema. NEUROLOGICAL: Cranial nerves II through XII grossly intact. Normal speech, gait not observed. PSYCH: Normal mood, normal affect. SKIN: Warm, dry, normal turgor, no rashes or lesions noted Laboratory Results - last 24 hr 02/12/18 02/12/18 02/12/18 05:30 13:20 13:20 WBC RBC Hgb Hct MCV MCH MCHC RDW Plt Count MPV Sodium 146 H Potassium 4.6 Chloride 116 H Carbon Dioxide 19 L Anion Gap 11 BUN 32 H Creatinine 2.9 H Creat Clearance w eGFR 16.39 Random Glucose 99 Lactic Acid Calcium 7.4 L Phosphorus Magnesium Total Bilirubin AST ALT Alkaline Phosphatase Ammonia 25.0 Creatine Kinase 67694 H Creatine Kinase Index 1.3 CK-MB (CK-2) 166.5 H Troponin I 9.45 H* Total Protein Albumin Urine Color Urine Appearance Urine pH Ur Specific [place] Urine Protein Urine Glucose (UA) Urine Ketones Urine Blood Urine Nitrite Urine Bilirubin Urine Urobilinogen Ur Leukocyte Esterase Urine WBC (Auto) Urine RBC (Auto) Ur Epithelial Cells Calcium Oxalate Crystal Amorphous Urates Ur Random Sodium Ur Random Potassium Ur Random Chloride Opiates Screen Methadone Screen Barbiturate Screen Phencyclidine Screen Ur Amphetamines Screen MDMA (Ecstasy) Screen Benzodiazepines Screen Cocaine Screen U Marijuana (THC) Screen Hepatitis A IgM Ab Negative Hep Bs Antigen Negative Hep B Core IgM Ab Negative Hepatitis C Antibody <0.1 02/12/18 02/12/18 02/12/18 13:20 13:20 13:20 WBC 13.4 H RBC 3.64 Hgb 11.7 Hct 36.5 MCV 100.4 H MCH 32.1 MCHC 32.0 RDW 15.9 H Plt Count 155 MPV 8.7 Sodium Potassium Chloride Carbon Dioxide Anion Gap BUN Creatinine Creat Clearance w eGFR Random Glucose Lactic Acid 3.2 H* Calcium Phosphorus Magnesium Total Bilirubin AST ALT Alkaline Phosphatase Ammonia Creatine Kinase Creatine Kinase Index CK-MB (CK-2) Troponin I Total Protein Albumin Urine Color [place] Urine Appearance Turbid Urine pH 5.0 Ur Specific [place] 1.021 Urine Protein 2+ H Urine Glucose (UA) Negative Urine Ketones Trace H Urine Blood 3+ H Urine Nitrite Negative Urine Bilirubin Negative Urine Urobilinogen Negative Ur Leukocyte Esterase 1+ H Urine WBC (Auto) 3-5 Urine RBC (Auto) Negative Ur Epithelial Cells Moderate Calcium Oxalate Crystal Few Amorphous Urates Many Ur Random Sodium Ur Random Potassium Ur Random Chloride Opiates Screen Methadone Screen Barbiturate Screen Phencyclidine Screen Ur Amphetamines Screen MDMA (Ecstasy) Screen Benzodiazepines Screen Cocaine Screen U Marijuana (THC) Screen Hepatitis A IgM Ab Hep Bs Antigen Hep B Core IgM Ab Hepatitis C Antibody 02/12/18 02/12/18 02/12/18 14:02 16:10 16:44 WBC RBC Hgb Hct MCV MCH MCHC RDW Plt Count MPV Sodium Potassium 5.0 Chloride Carbon Dioxide Anion Gap BUN Creatinine Creat Clearance w eGFR Random Glucose Lactic Acid Calcium Phosphorus Magnesium Total Bilirubin AST ALT Alkaline Phosphatase Ammonia Creatine Kinase Cancelled Creatine Kinase Index CK-MB (CK-2) Troponin I Cancelled Total Protein Albumin Urine Color Urine Appearance Urine pH Ur Specific [place] Urine Protein Urine Glucose (UA) Urine Ketones Urine Blood Urine Nitrite Urine Bilirubin Urine Urobilinogen Ur Leukocyte Esterase Urine WBC (Auto) Urine RBC (Auto) Ur Epithelial Cells Calcium Oxalate Crystal Amorphous Urates Ur Random Sodium Ur Random Potassium Ur Random Chloride Opiates Screen Positive Methadone Screen Negative Barbiturate Screen Negative Phencyclidine Screen Negative Ur Amphetamines Screen Negative MDMA (Ecstasy) Screen Negative Benzodiazepines Screen Positive Cocaine Screen Negative U Marijuana (THC) Screen Negative Hepatitis A IgM Ab Hep Bs Antigen Hep B Core IgM Ab Hepatitis C Antibody 02/12/18 02/12/18 02/12/18 16:47 18:00 18:00 WBC 11.6 H RBC 3.54 L Hgb 11.3 Hct 35.3 MCV 99.5 H MCH 31.9 MCHC 32.0 RDW 16.0 H Plt Count 165 MPV 9.0 Sodium 146 H Potassium 4.7 Chloride 115 H Carbon Dioxide 19 L Anion Gap 12 BUN 36 H Creatinine 3.3 H Creat Clearance w eGFR 14.12 Random Glucose 152 H Lactic Acid Calcium 7.4 L Phosphorus Magnesium Total Bilirubin AST ALT Alkaline Phosphatase Ammonia Creatine Kinase Creatine Kinase Index CK-MB (CK-2) Troponin I 8.31 H* Total Protein Albumin Urine Color Urine Appearance Urine pH Ur Specific [place] Urine Protein Urine Glucose (UA) Urine Ketones Urine Blood Urine Nitrite Urine Bilirubin Urine Urobilinogen Ur Leukocyte Esterase Urine WBC (Auto) Urine RBC (Auto) Ur Epithelial Cells Calcium Oxalate Crystal Amorphous Urates Ur Random Sodium 30 Ur Random Potassium 66.9 Ur Random Chloride 30 Opiates Screen Methadone Screen Barbiturate Screen Phencyclidine Screen Ur Amphetamines Screen MDMA (Ecstasy) Screen Benzodiazepines Screen Cocaine Screen U Marijuana (THC) Screen Hepatitis A IgM Ab Hep Bs Antigen Hep B Core IgM Ab Hepatitis C Antibody 02/12/18 02/13/18 02/13/18 18:00 00:00 00:00 WBC RBC Hgb Hct MCV MCH MCHC RDW Plt Count MPV Sodium Potassium Chloride Carbon Dioxide Anion Gap BUN Creatinine Creat Clearance w eGFR Random Glucose Lactic Acid 3.3 H* 3.6 H* Calcium Phosphorus Magnesium Total Bilirubin AST ALT Alkaline Phosphatase Ammonia Creatine Kinase Creatine Kinase Index CK-MB (CK-2) Troponin I 7.37 H* Total Protein Albumin Urine Color Urine Appearance Urine pH Ur Specific [place] Urine Protein Urine Glucose (UA) Urine Ketones Urine Blood Urine Nitrite Urine Bilirubin Urine Urobilinogen Ur Leukocyte Esterase Urine WBC (Auto) Urine RBC (Auto) Ur Epithelial Cells Calcium Oxalate Crystal Amorphous Urates Ur Random Sodium Ur Random Potassium Ur Random Chloride Opiates Screen Methadone Screen Barbiturate Screen Phencyclidine Screen Ur Amphetamines Screen MDMA (Ecstasy) Screen Benzodiazepines Screen Cocaine Screen U Marijuana (THC) Screen Hepatitis A IgM Ab Hep Bs Antigen Hep B Core IgM Ab Hepatitis C Antibody 02/13/18 02/13/18 02/13/18 05:30 05:30 05:30 WBC 13.8 H RBC 3.33 L Hgb 10.5 L Hct 33.1 MCV 99.4 H MCH 31.5 MCHC 31.6 L RDW 16.0 H Plt Count 131 L D MPV 9.4 Sodium 143 Potassium 4.7 Chloride 114 H Carbon Dioxide 18 L Anion Gap 11 BUN 41 H Creatinine 3.9 H Creat Clearance w eGFR 11.64 Random Glucose 136 H Lactic Acid 1.8 Calcium 7.2 L Phosphorus 3.7 Magnesium 1.6 L Total Bilirubin 0.3 AST 1859 H ALT 1270 H Alkaline Phosphatase 76 D Ammonia Creatine Kinase 6524 H Creatine Kinase Index 0.9 CK-MB (CK-2) 62.18 H Troponin I 5.73 H* Total Protein 4.5 L Albumin 2.2 L Urine Color Urine Appearance Urine pH Ur Specific [place] Urine Protein Urine Glucose (UA) Urine Ketones Urine Blood Urine Nitrite Urine Bilirubin Urine Urobilinogen Ur Leukocyte Esterase Urine WBC (Auto) Urine RBC (Auto) Ur Epithelial Cells Calcium Oxalate Crystal Amorphous Urates Ur Random Sodium Ur Random Potassium Ur Random Chloride Opiates Screen Methadone Screen Barbiturate Screen Phencyclidine Screen Ur Amphetamines Screen MDMA (Ecstasy) Screen Benzodiazepines Screen Cocaine Screen U Marijuana (THC) Screen Hepatitis A IgM Ab Hep Bs Antigen Hep B Core IgM Ab Hepatitis C Antibody 02/13/18 05:30 WBC RBC Hgb Hct MCV MCH MCHC RDW Plt Count MPV Sodium Potassium Chloride Carbon Dioxide Anion Gap BUN Creatinine Creat Clearance w eGFR Random Glucose Lactic Acid Calcium Phosphorus Magnesium Total Bilirubin AST ALT Alkaline Phosphatase Ammonia Creatine Kinase Creatine Kinase Index CK-MB (CK-2) Troponin I Cancelled Total Protein Albumin Urine Color Urine Appearance Urine pH Ur Specific [place] Urine Protein Urine Glucose (UA) Urine Ketones Urine Blood Urine Nitrite Urine Bilirubin Urine Urobilinogen Ur Leukocyte Esterase Urine WBC (Auto) Urine RBC (Auto) Ur Epithelial Cells Calcium Oxalate Crystal Amorphous Urates Ur Random Sodium Ur Random Potassium Ur Random Chloride Opiates Screen Methadone Screen Barbiturate Screen Phencyclidine Screen Ur Amphetamines Screen MDMA (Ecstasy) Screen Benzodiazepines Screen Cocaine Screen U Marijuana (THC) Screen Hepatitis A IgM Ab Hep Bs Antigen Hep B Core IgM Ab Hepatitis C Antibody Active Medications Generic Name Dose Route Start Last Admin Trade Name Freq PRN Reason Stop Dose Admin Albuterol Sulfate 1 amp 02/12/18 09:54 02/12/18 11:45 Ventolin 0.5% - NEB 1 amp Q4H PRN Administration SHORT OF BREATH/WHEEZING Aspirin 81 mg 02/13/18 10:00 Ecotrin - PO DAILY BRANDON Chlorhexidine Gluconate 1 applic 02/12/18 22:00 02/12/18 21:13 Hibiclens For Decolonization - TP 1 applic HS BRANDON Administration Citalopram Hydrobromide 10 mg 02/13/18 10:00 Celexa - PO DAILY BRANDON Heparin Sodium (Porcine) 5,000 unit 02/12/18 06:00 02/13/18 06:27 Heparin - SQ 5,000 unit TID BRANDON Administration Piperacillin Sod/Tazobactam 50 mls @ 100 mls/hr 02/12/18 14:30 02/13/18 01:33 Sod 2.25 gm/ Dextrose IVPB 100 mls/hr Q8H-IV BRANDON Administration Protocol Sodium Chloride 1,000 mls @ 125 mls/hr 02/13/18 09:00 Normal Saline - IV ASDIR BRANDON Levetiracetam 500 mg 02/11/18 23:15 02/12/18 21:13 Keppra Injection - IVPB 500 mg BID BRANDON Administration Mupirocin 1 applic 02/12/18 10:00 02/12/18 21:13 Bactroban Ointment (For Decolonization) - NS 02/17/18 09:59 1 applic BID BRANDON Administration Ondansetron HCl 4 mg 02/12/18 00:21 Zofran Injection IVPB Q6H PRN NAUSEA Pantoprazole Sodium 40 mg 02/12/18 10:00 02/12/18 10:11 Protonix Iv IVPUSH 40 mg DAILY BRANDON Administration ASSESSMENT/PLAN:
[2018-02-13] MEDS: MUPIROCIN 2% TOPICAL OINTMENT FOR DECOLONIZATION NS SCH ×2 (10:00→21:28)
[2018-02-13] MEDS: ASPIRIN COATED 81 MG TABLET.EC PO SCH (10:00)
[2018-02-13] MEDS: PANTOPRAZOLE SODIUM 40 MG VIAL IVPUSH SCH (10:00)
[2018-02-13] MEDS: CITALOPRAM HYDROBROMIDE 20 MG TABLET (FP) PO SCH (10:00)
[2018-02-13] MEDS: levETIRAcetam 500 MG/5 ML INJECTION VIAL IVPB SCH ×2 (10:00→21:29)
--- NOTE | 2018-02-13 10:13 | PN ---
Progress Note (short form) - Note Progress Note: cc: unresponsive s: no cp, palps, dizzy. feels better today, no complaints Current Medications Albuterol Sulfate (Ventolin 0.5% -) 1 amp NEB Q4H PRN PRN Reason: SHORT OF BREATH/WHEEZING Last Admin: 02/12/18 11:45 Dose: 1 amp Aspirin (Ecotrin -) 81 mg PO DAILY [facility] Chlorhexidine Gluconate (Hibiclens For Decolonization -) 1 applic TP HS [facility] Last Admin: 02/12/18 21:13 Dose: 1 applic Citalopram Hydrobromide (Celexa -) 10 mg PO DAILY [facility] Heparin Sodium (Porcine) (Heparin -) 5,000 unit SQ TID [facility] Last Admin: 02/13/18 06:27 Dose: 5,000 unit Piperacillin Sod/Tazobactam (Sod 2.25 gm/ Dextrose) 50 mls @ 100 mls/hr IVPB Q8H-IV [facility]; Protocol Last Admin: 02/13/18 01:33 Dose: 100 mls/hr Sodium Chloride (Normal Saline -) 1,000 mls @ 125 mls/hr IV ASDIR [facility] Levetiracetam (Keppra Injection -) 500 mg IVPB BID [facility] Last Admin: 02/12/18 21:13 Dose: 500 mg Mupirocin (Bactroban Ointment (For Decolonization) -) 1 applic NS BID [facility] Stop: 02/17/18 09:59 Last Admin: 02/12/18 21:13 Dose: 1 applic Ondansetron HCl (Zofran Injection) 4 mg IVPB Q6H PRN PRN Reason: NAUSEA Pantoprazole Sodium (Protonix Iv) 40 mg IVPUSH DAILY [facility] Last Admin: 02/12/18 10:11 Dose: 40 mg Vital Signs Period Temp Pulse Resp BP Sys/Gruber Pulse Ox Last 24 Hr 98.7 F-100 F 86-95 13-22 105-146/50-68 97-97 Constitutional: Yes: No Distress, Calm Eyes: Yes: Conjunctiva Clear, EOM Intact HENT: Yes: Atraumatic, Normocephalic Neck: Yes: Supple Respiratory: Yes: Regular, CTA Bilaterally Gastrointestinal: Yes: Normal Bowel Sounds, Soft Renal/: Yes: Kilpatrick Present Cardiovascular: Yes: Regular Rate and Rhythm JVD: No Heart Sounds: Yes: S1, S2 Edema: No Peripheral Pulses: 2+ Left Doralis Pedis, 2+ Right Dorsalis Pedis Neurological: Yes: Alert, Confusion, Weakness Psychiatric: Yes: Alert Assessment/Plan EK/23 sinus, nonspecific T wave changes. 02/12 sinus, TWI III, V1-V3 Tele: sinus 80s-90s CXR: no acute process echo nl LV function EF >70%, mod TR, RV mildly dilated with borderline reduced function carotid ultrasound: moderate stenosis right carotid tele: two brief NSVT 4 beats, otherwise sinus 62F h/o opiod dependency, back pain using fentanyl patch, anxiety, seizure disorder p/w unresponsiveness, trop elevated, overdose trop elevation, NSTEMI - likely in setting of overdose, multiple metabolic abnormalities - trop peak at 7, echo normal LV function - noted to have bloody BM, blood on rectal exam per primary team, deferring heparin gtt and plavix - on aspirin 81 mg daily, deferring statin due to elevated LFTs QUINTEN - renal consulted, possible ATN from hypotension/sepsis elevated LFTs - GI consulted, dilated CBD on ultrasound liver - defer statin as above unresponsiveness - likely in setting of overdose (fentanyl in mouth, benzo+ in urine), possible sepsis, stroke, seizure - neurology consulted, MRI brain is pending, on keppra - on IV abx, IV fluids, ID following - lactate improving leukocytosis - IV abx per primary team
--- NOTE | 2018-02-13 12:21 | CON.NEP ---
Consult Consult Specialty:: nephrology Reason for Consultation:: quinten - History of Present Illness History of Present Illness: 62 year old woman with history of chronic pain from a previous injury presented with unresponsiveness. Her creatinine has risen and so nephrology is called. She says she does not even know what kidneys are. So does not know of kidney disease. Apparently was founbd with a fentanyl patch in her mouth. Does not take NSAIDS - History Source History Provided By: Patient, Medical Record Limitations to Obtaining History: No Limitations - Past Medical History ...: No Musculoskeletal: Yes: Chronic low back pain - Past Surgical History Additional Surgical History: back surgery, fusion - Alcohol/Substance Use Hx Alcohol Use: No - Smoking History Smoking history: Unknown if ever smoked Have you smoked in the past 12 months: Yes Aproximately how many cigarettes per day: 7 - Social History Usual Living Arrangement: Other (daughter and grand daughter.) ADL: Family Assistance History of Recent Travel: No Home Medications - Allergies Allergies/Adverse Reactions: Allergies Allergy/AdvReac Type Severity Reaction Status Date / Time lactose AdvReac Unknown Verified 02/11/18 21:25 - Home Medications Home Medications: Ambulatory Orders Citalopram Hydrobromide [Celexa -] 10 mg PO DAILY #14 tablet 06/09/17 Gabapentin 800 mg PO TID 02/12/18 oxyCODONE HCL [Roxicodone -] 10 mg PO Q6H PRN MDD 40 02/12/18 Review of Systems - Review of Systems Constitutional: reports: No Symptoms Eyes: reports: No Symptoms HENT: reports: No Symptoms Neck: reports: No Symptoms Cardiovascular: reports: No Symptoms Respiratory: reports: No Symptoms Gastrointestinal: reports: No Symptoms Genitourinary: reports: No Symptoms Musculoskeletal: reports: Back Pain Integumentary: reports: No Symptoms Neurological: reports: Change in LOC Endocrine: reports: No Symptoms Hematology/Lymphatic: reports: No Symptoms Nephrology Consult - Height Height: 5 ft 5 in - Weight Weight: 128 lb - BMI Body Mass Index (BMI): 21.2 - Lab Results CBC,BMP: CBC, BMP 02/13/18 05:30 02/13/18 05:30 Anion Gap: Anion Gap Anion Gap 11 MMOL/L (8-16) 02/13/18 05:30 - Imaging Chest X-ray: Report Reviewed Ultrasound: Report Reviewed (kidneys appear unremarkable) - Physical Examination Vital Signs: Vital Signs Temperature 100 F H 02/13/18 06:00 Pulse Rate 90 02/13/18 11:48 Respiratory Rate 16 02/13/18 11:48 Blood Pressure 142/85 02/13/18 11:48 O2 Sat by Pulse Oximetry (%) 97 02/12/18 22:00 Constitutional: Yes: Well Nourished, No Distress, Calm Eyes: Yes: Conjunctiva Clear HENT: Yes: Atraumatic, Normocephalic Neck: Yes: Supple, Trachea Midline Cardiovascular: Yes: Regular Rate and Rhythm Respiratory: Yes: CTA Bilaterally Gastrointestinal: Yes: Normal Bowel Sounds Renal/: Yes: WNL, Kilpatrick Present Musculoskeletal: Yes: Back Pain Extremities: Yes: WNL Edema: No Integumentary: Yes: WNL Wound/Incision: Yes: Well Approximated Neurological: Yes: Alert, Oriented Psychiatric: Yes: Alert, Oriented Assessment/Plan IMPRESSION QUINTEN likely due to rhabdomyolysis PLAN would give at least 200 cc per hour of iv saline and give lasix if necessary would do work up once acute issue resolves [facility]
[2018-02-13] MEDS ORDERED: MAGNESIUM SULF 50% (8.12 MEQ/2 ML-1 GM VIAL) IVPB ONE (13:00)
[2018-02-13] MEDS: SODIUM CHLORIDE 1,000 ML IV SCH (13:00)
--- NOTE | 2018-02-13 17:44 | PN ---
GI Progress Note Subjective: Covering for Dr. Allred: Patient going down for MRCP No focal GI complaints - Objective Vital Signs: Vital Signs Temperature 100 F H 02/13/18 06:00 Pulse Rate 90 02/13/18 11:48 Respiratory Rate 16 02/13/18 11:48 Blood Pressure 142/85 02/13/18 11:48 O2 Sat by Pulse Oximetry (%) 97 02/13/18 11:00 Constitutional: Calm Eyes: No: Sclera Icterus Cardiovascular: Yes: Regular Rate and Rhythm Respiratory: Yes: CTA Bilaterally Gastrointestinal Inspection: No: Distention ...Auscultate: Yes: Normoactive Bowel Sounds ...Palpate: No: Hepatomegaly, Splenomegaly, Tenderness Edema: Yes Edema: LLE: Trace, RLE: Trace Neurological: Yes: Alert Labs: CBC, BMP 02/13/18 05:30 02/13/18 05:30 INR, PTT INR 1.13 (0.83-1.09) H 02/11/18 19:50 Hepatic Panel Total Bilirubin 0.3 mg/dL (0.2-1.0) 02/13/18 05:30 AST 1859 U/L (15-37) H 02/13/18 05:30 ALT 1270 U/L (12-78) H 02/13/18 05:30 Alkaline Phosphatase 76 U/L (45-117) D 02/13/18 05:30 Albumin 2.2 g/dl (3.4-5.0) L 02/13/18 05:30 Laboratory Tests 02/13/18 05:30 Creatine Kinase 6524 H Problem List - Problems (1) Transaminitis Assessment/Plan: Likely component of ischemic hepatopathy and rhabdomyloysis contributing to isolated transaminitis. Benign abdominal exam. Intrahepatic and extrahepatic ducts described as dilated on US yet LFTs not reflective of obstructive / cholestatic process. Await MRCP. ? need for IV PPI Code(s): R74.0 - NONSPEC ELEV OF LEVELS OF TRANSAMNS & LACTIC ACID DEHYDRGNSE
[2018-02-13] MEDS: CHLORHEXIDINE GLUCONATE 4% CLEANSER FOR DECOLONIZATION TP SCH (21:29)
[2018-02-14] MEDS ORDERED: PIPERACILLIN/TAZOBACTAM 2.25 GM VIAL IVPB ONE ×3 (01:05→16:51)
[2018-02-14] MEDS ORDERED: DEXTROSE 5%-WATER - 50 ML IVPB ONE ×3 (01:06→16:51)
[2018-02-14] MEDS: PIPERACILLIN/TAZOB 2.25 GM 2.25 GM in DEXTROSE 5%-WATER - 50 ML IVPB SCH ×3 (01:17→17:01)
[2018-02-14] MEDS: SODIUM CHLORIDE 1,000 ML IV SCH ×3 (01:18→19:30)
[2018-02-14] MEDS: HEPARIN NA (PORCINE) 5,000 UNITS/ML 1ML VIAL SQ SCH ×3 (05:24→21:48)
[2018-02-14 05:57] LABS: BASO % 0.3 % (0-2.0); HEMATOCRIT 32.4 % (32.4-45.2); HEMOGLOBIN 10.5 GM/dL (10.7-15.3); LYMPH % 7.6 % (8-40); MCH 31.4 pg (25.7-33.7); MCHC 32.5 g/dl (32.0-36.0); MEAN CELL VOLUME 96.6 fl (80-96); MEAN PLT VOLUME 9.3 fl (7.5-11.1); MONO % 5.8 % (3.8-10.2); NEUT % 86.3 % (42.8-82.8); PLATELET COUNT 132 K/MM3 (134-434); RBC 3.36 M/mm3 (3.60-5.2); RDW 15.6 % (11.6-15.6); WHITE BLOOD COUNT 16.2 K/mm3 (4.0-10.0)
[2018-02-14 06:21] LABS: ALBUMIN 2.2 g/dl (3.4-5.0); ALK PHOS 84 U/L (45-117); ANION GAP 10 MMOL/L (8-16); BILIRUBIN,TOTAL 0.5 mg/dL (0.2-1.0); BLOOD UREA NITROGEN 45 mg/dL (7-18); CALCIUM 7.2 mg/dL (8.5-10.1); CHLORIDE 116 mmol/L (98-107); CO2 16 mmol/L (21-32); CREATININE 4.7 mg/dL (0.55-1.02); GLUCOSE,RANDOM 101 mg/dL (74-106); MAGNESIUM 2.1 mg/dL (1.8-2.4); PHOSPHOROUS 4.2 mg/dL (2.5-4.9); SODIUM 142 mmol/L (136-145); TOT PROT 4.8 g/dl (6.4-8.2)
[2018-02-14 06:23] LABS: SGOT/AST 632 U/L (15-37); SGPT/ALT 882 U/L (12-78)
--- NOTE | 2018-02-14 07:18 | PN ---
Progress Note (short form) - Note Progress Note: awake and alert no fevers complaint of her chronic back and right leg pain requesting pain meds had 3 episodes of nonbloody diarrhea overnight Vital Signs Period Temp Pulse Resp BP Sys/Gruber Pulse Ox Last 24 Hr 98.4 F-98.8 F 63-92 16-34 128-176/66-96 96-98 cor-rrr lungs clear abd soft,nt ext no edema CBC, BMP 02/14/18 05:30 02/14/18 05:30 Microbiology 02/13/18 08:40 Urine - Urine Kilpatrick Urine Culture - Final NO GROWTH OBTAINED 02/11/18 19:50 Blood - Peripheral Venous Blood Culture - Preliminary NO GROWTH OBTAINED AFTER 48 HOURS, INCUBATION TO CONTINUE FOR 3 DAYS. 02/11/18 19:50 Blood - Peripheral Venous Blood Culture - Preliminary NO GROWTH OBTAINED AFTER 48 HOURS, INCUBATION TO CONTINUE FOR 3 DAYS. 02/13/18 11:20 Stool Clostridium difficile Antigen ([facility]) - Final 02/13/18 11:20 Stool Clostridium difficile Toxin Assay - Final 02/11/18 21:35 Urine - Urine - Catheterized Urine Culture - Final NO GROWTH OBTAINED liver sono- cbd and intrahepatic ductal dilatation MRCP- ?stricture, thicked gb wall, no stones imp/reccd dilated CBD- MRCP noted, awaiting GI f/u QUINTEN- improved urine output overnight rhabdomyolysis-cpk trending down NSTEMI transaminases improving ?ischemic colitis from hypotension diarrhea- f/u stool studies continue zosyn, renally dosed
--- NOTE | 2018-02-14 07:41 | PN ---
Progress Note (short form) - Note Progress Note: PULM/CCM Patient seen and examined in the ICU. No reported new weakness, R side seems to be improving, NAD. Pt constantly requesting opiate medication. Pt is ready for immediate d/c from ICU. Active Medications Albuterol Sulfate (Ventolin 0.5% -) 1 amp NEB Q4H PRN PRN Reason: SHORT OF BREATH/WHEEZING Last Admin: 02/12/18 11:45 Dose: 1 amp Aspirin (Ecotrin -) 81 mg PO DAILY [facility] Last Admin: 02/14/18 08:59 Dose: 81 mg Chlorhexidine Gluconate (Hibiclens For Decolonization -) 1 applic TP HS [facility] Last Admin: 02/13/18 21:29 Dose: 1 applic Citalopram Hydrobromide (Celexa -) 10 mg PO DAILY [facility] Last Admin: 02/14/18 08:59 Dose: 10 mg Heparin Sodium (Porcine) (Heparin -) 5,000 unit SQ TID [facility] Last Admin: 02/14/18 05:24 Dose: 5,000 unit Piperacillin Sod/Tazobactam (Sod 2.25 gm/ Dextrose) 50 mls @ 100 mls/hr IVPB Q8H-IV [facility]; Protocol Last Admin: 02/14/18 09:06 Dose: 100 mls/hr Sodium Chloride (Normal Saline -) 1,000 mls @ 150 mls/hr IV ASDIR [facility] Last Admin: 02/14/18 10:22 Dose: 150 mls/hr Labetalol HCl (Normodyne -) 100 mg PO BID [facility] Last Admin: 02/14/18 09:06 Dose: 100 mg Levetiracetam (Keppra Injection -) 500 mg IVPB BID [facility] Last Admin: 02/14/18 09:00 Dose: 500 mg Multivitamins/Minerals (Theragran-M) 1 each PO DAILY [facility] Last Admin: 02/14/18 10:22 Dose: 1 each Mupirocin (Bactroban Ointment (For Decolonization) -) 1 applic NS BID [facility] Stop: 02/17/18 09:59 Last Admin: 02/14/18 10:23 Dose: 1 applic Ondansetron HCl (Zofran Injection) 4 mg IVPB Q6H PRN PRN Reason: NAUSEA Oxycodone HCl (Roxicodone -) 5 mg PO Q4H PRN PRN Reason: PAIN LEVEL 6-10 Last Admin: 02/14/18 09:09 Dose: 5 mg Oxycodone HCl (Roxicodone -) 2.5 mg PO Q4H PRN PRN Reason: PAIN LEVEL 1-5 Pantoprazole Sodium (Protonix -) 40 mg PO DAILY [facility] Last Admin: 02/14/18 09:00 Dose: 40 mg Vital Signs Period Temp Pulse Resp BP Sys/Gruber Pulse Ox Last 24 Hr 98.2 F-98.8 F 63-88 20-34 128-176/66-96 96-98 Intake & Output 02/11/18 02/12/18 02/13/18 02/14/18 23:59 23:59 23:59 23:59 Intake Total 4125 4330 2500 Output Total 300 900 400 Balance 3825 3430 2100 Weight 68.039 kg 55.934 kg 58.06 kg 69.91 kg GEN: Middle aged woman in bed, NAD PULM: CTAB CV: cor-RR ABD: Hyperactive BS but S/S N/T N/D X4Q EXT: + Pulses, WWPX4, (-) edema CBC, BMP 02/14/18 05:30 02/14/18 05:30 Microbiology 02/13/18 11:20 Stool Salmonella/Shigella Culture - Preliminary Yeast Like Organism 02/13/18 11:20 Stool Yersinia Culture - Preliminary NO ENTERIC PATHOGENS, 24 HOURS, ON PRIMARY PLATES 02/13/18 11:20 Stool Vibrio Culture - Final NO GROWTH OF VIBRIO SPECIES OBTAINED 02/13/18 11:20 Stool Escherichia coli 0157 Culture - Final NO GROWTH OF E COLI 0157 OBTAINED 02/13/18 08:40 Urine - Urine Kilpatrick Urine Culture - Final NO GROWTH OBTAINED 02/11/18 19:50 Blood - Peripheral Venous Blood Culture - Preliminary NO GROWTH OBTAINED AFTER 48 HOURS, INCUBATION TO CONTINUE FOR 3 DAYS. 02/11/18 19:50 Blood - Peripheral Venous Blood Culture - Preliminary NO GROWTH OBTAINED AFTER 48 HOURS, INCUBATION TO CONTINUE FOR 3 DAYS. 02/13/18 11:20 Stool Clostridium difficile Antigen ([facility]) - Final 02/13/18 11:20 Stool Clostridium difficile Toxin Assay - Final 02/11/18 21:35 Urine - Urine - Catheterized Urine Culture - Final NO GROWTH OBTAINED RECENT STUDIES TO NOTE: MRCP 02/13: Distended gallbladder with thickening of the wall and no stones are identified. There is dilatation of the intrahepatic duct and common bile duct to the level of the ampulla without dilatation of the pancreatic duct. This raises possibility of a stricture. Bilateral pleural effusions, mild ascites with soft tissue swelling. CA Doppler 02/12: Moderate stenosis right carotid arterial system. Consider follow-up MRA NCHCT 02/12: Mild volume loss and periventricular chronic microvascular ischemic disease changes. No gross acute intracranial pathology is identified. Correlate clinically to determine further evaluation and follow-up. Correlation with MRI would be more sensitive in view of the clinical history ASSESS: Resolving AMS: (?) due to toxic ingestion (?) acute [employer]ING [employer] event S/p acute hypoxic respiratory failure S/p lactic acidosis Rhabdo Elevated troponin QUINTEN Transaminitis Chronic back pain h/o of fentanyl overuse Possible history of seizure disorder Depression Anxiety PLAN: IVFs MRI/MRA Brain Follow cultures Keppra 500 mg BID started for seizure prophylaxis Monitor for withdrawal Transfer to Floor for cont Medicine W/u Schedule outpatient EUS GI to follow thickening GI membranes & various dilatations No need for ICU level of care Paolo Huerta, ACNP-[facility] ICU PULM/CCM 0903 Critical Care Total Critical Care Time (in minutes): 38 Critical Care Statement: The care of this patient involved high complexity decision making to prevent further life threatening deterioration of the patient 's condition and/or to evaluate & treat vital organ system(s) failure or risk of failure.
[2018-02-14] MEDS ORDERED: PT OWN MED DRAWER 7, Y5N ONE ×2 (08:07→21:47)
--- NOTE | 2018-02-14 08:37 | PN ---
Progress Note (short form) - Note Progress Note: 62 year old female found to have right sided hemiparesis after she was extubated. She has history of chronic low back pain , anxiety , depression, epilepsy brought to hospital for opioid overdose. She was intubated at hospital admission. Initially she thought to be Hepatic encephalopathy vs seiizure vs septicemic. Subjective She feel her right leg feel sleepy and right arm is better Neurological Examination Alert oriented x 3, eomi, pupils is reactive, no face as ymmetry right upper extremity is wrist flexion extension, elbow flexion and extension is 5/5 on right side. there is mild bilateral shoulder abduction 5-/5( could be due to deconditioning ) There is mild weakness of right feet dorsiflexion on right side. reflex are diminished right leg hip flexion and extension, knee flexion and extension 5/5 ct head unrmarkable mri fo brain showed right occpital acute small stroke ( does not coorelate clinically) carotid ultrasound showed right sided moderate stenosis Assessment- 62 year old female with multiple comorbidity came with drug overdose vs septic encephalopathy and septicemia her right arm weakness improved ( could have been transient compressive neuropathy) , she continue to ahve right foot drop. clincially and radiologically there is no acute stroke explains her symptoms 2. subclinical right occipital stroke , Plan- -continue aspirin and statin on hold - mra of neck can be obtained for right carotid stenosis speech eval, pt and dvt prophylaxis smokign cessation and stroke education Thanking you so much Brendon Baker MD
[2018-02-14] MEDS ORDERED: oxyCODONE HCL 5 MG TABLET PO PRN ×3 (08:47→19:23)
--- NOTE | 2018-02-14 08:54 | PN ---
Progress Note (short form) - Note Progress Note: Subjective: no TAVERA , no fever or chills. No abd pain. incontinent to stool. feels her R side got better . no evets over night. no hematochezia. has bacck and R LE pain /chronic Objective: Vital Signs: Last Vital Signs Temp Pulse Resp BP Pulse Ox 98.6 F 88 24 173/86 98 02/14/18 06:00 02/14/18 06:00 02/14/18 06:00 02/14/18 06:00 02/13/18 22:00 Laboratory Results - last 24 hr 02/13/18 02/13/18 02/14/18 08:40 11:20 05:30 WBC 16.2 H RBC 3.36 L Hgb 10.5 L Hct 32.4 MCV 96.6 H MCH 31.4 MCHC 32.5 RDW 15.6 Plt Count 132 L MPV 9.3 Absolute Neuts (auto) 14.0 H Neutrophils % 86.3 H Lymphocytes % 7.6 L D Monocytes % 5.8 Eosinophils % 0.0 D Basophils % 0.3 Nucleated RBC % 0 Sodium Potassium Chloride Carbon Dioxide Anion Gap BUN Creatinine Creat Clearance w eGFR Random Glucose Hemoglobin A1c % Calcium Phosphorus Magnesium Total Bilirubin AST ALT Alkaline Phosphatase Total Protein Albumin Urine Protein 124 H Urine Creatinine 105.0 Stool Occult Blood Positive 02/14/18 02/14/18 05:30 05:30 WBC RBC Hgb Hct MCV MCH MCHC RDW Plt Count MPV Absolute Neuts (auto) Neutrophils % Lymphocytes % Monocytes % Eosinophils % Basophils % Nucleated RBC % Sodium 142 Potassium 5.0 Chloride 116 H Carbon Dioxide 16 L Anion Gap 10 BUN 45 H Creatinine 4.7 H Creat Clearance w eGFR 9.39 Random Glucose 101 Hemoglobin A1c % 5.1 Calcium 7.2 L Phosphorus 4.2 Magnesium 2.1 Total Bilirubin 0.5 AST 632 H ALT 882 H Alkaline Phosphatase 84 Total Protein 4.8 L Albumin 2.2 L Urine Protein Urine Creatinine Stool Occult Blood Physical Exam: NAD, more awake orientedx3 Cv: RRR, no MRG Lungs: bibasilar crackles Abd: soft, minimal tenderness in RUQ with deep palpation , but Neg Grewal's . no rebound tenderness or guarding. nl BS Ext: no edema, no erythema. Neuro: EOMI, . no facial droop, round equal pupils , reactive to light. Strength: RUE: shoulder abduction 4/5, shoulder flexion 4/5, biceps 5, triceps 5/5. hand instructor dramatic arts 5/5. LUE: shoulder abduction 5/5, biceps 5/5 , triceps 5/5 .hand instructor dramatic arts 5/5 . RLE; hip flexion 5/5, knee flexion 5/5 , ankle dorsiflexion and plantar flexion 4/5 LLE: hip flexion 5/5 , knee flexion /extension 5/5/ , ankle dorsiflexionand plantarflexion 5/5 . reflexes : 1+ knee jerk and 2+ biceps b/l. Nl sensation to light touch all over Nl visual field ASSESSMENT AND PLAN: 62 y/o 62 y/o lady with h/o chronic opioids use, possible seizure disorder, anxiety, depression and panic attacks who was brought to ER due to unresponsiveness 1- Unresponsiveness/encephalopathy: likely due to opioid over dose - neuro exam shows continued improvement in RUE and RLE strength . MRI with R sided occipital stroke, but does not explaine R sided weakness. radiculopathy ? - cont ASA , can't give statin - cont Keppra - EMG as out pt - MRA of neck - control HTN - tele with episodes of tachycardia (? sinus) , will d/w card - d/w Dr. Baker 2-HTN: not on any meds at home . will start labetalol BID . can't use ACEI/ARb 3- QUINTEN: Possible ATN from transient hypotension /sepsis/Rhabdo . UOP improved but cr cont to worsen - IVF. will decrease as patient started to have crackles -protein uria of 1.1 g . FeNAS 0.6% ! 4- Rhabdomyolysis: IVF , follow CPK 5- Transaminitis :possible stricture on MRCP.LFTS improved . - Gi follow up - 6- Sepsis : biliary vs colon . wbc increased but patient clinically better . - cont zosyn - follow cultures 7- Normal AG Metabolic acidosis : likely due renal failure and diarrhea 8- NSTEMI: possible demand, - cont ASA . - can't use statin - tele as above . will d/w card 9- Rectal bleed : ishcemia vs internal hemorrhoids. resolved . stable HB monitor 10- chronci back pain , jeison resume oxydocone carefully. avoid fentanyl patch Tx to floor Visit type - Emergency Visit Emergency Visit: Yes ED Registration Date: 02/11/18 Care time: The patient presented to the Emergency Department on the above date and was hospitalized for further evaluation of their emergent condition. - New Patient This patient is new to me today: No - Critical Care Critical Care patient: No
[2018-02-14] MEDS: ASPIRIN COATED 81 MG TABLET.EC PO SCH (08:59)
[2018-02-14] MEDS: CITALOPRAM HYDROBROMIDE 20 MG TABLET (FP) PO SCH (08:59)
[2018-02-14] MEDS ORDERED: SODIUM CHLORIDE 1,000 ML IV SCH (09:00)
[2018-02-14] MEDS: levETIRAcetam 500 MG/5 ML INJECTION VIAL IVPB SCH ×2 (09:00→21:48)
--- NOTE | 2018-02-14 09:21 | PN ---
GI Progress Note Subjective: Covering for Dr. Allred who resumes care 02/15 No acute events No abdominal pain - Objective Vital Signs: Vital Signs Temperature 98.6 F 02/14/18 06:00 Pulse Rate 53 L 02/14/18 08:00 Respiratory Rate 29 H 02/14/18 08:00 Blood Pressure 139/81 02/14/18 08:00 O2 Sat by Pulse Oximetry (%) 98 02/13/18 22:00 Constitutional: Calm Eyes: No: Sclera Icterus Cardiovascular: Yes: Regular Rate and Rhythm Respiratory: Yes: CTA Bilaterally Gastrointestinal Inspection: No: Distention ...Auscultate: Yes: Normoactive Bowel Sounds ...Palpate: No: Hepatomegaly, Splenomegaly, Tenderness ...Percussion: No: Tympanitic Neurological: Yes: Alert Labs: CBC, BMP 02/14/18 05:30 02/14/18 05:30 INR, PTT INR 1.13 (0.83-1.09) H 02/11/18 19:50 Hepatic Panel Total Bilirubin 0.5 mg/dL (0.2-1.0) 02/14/18 05:30 AST 632 U/L (15-37) H 02/14/18 05:30 ALT 882 U/L (12-78) H 02/14/18 05:30 Alkaline Phosphatase 84 U/L (45-117) 02/14/18 05:30 Albumin 2.2 g/dl (3.4-5.0) L 02/14/18 05:30 - ....Imaging MRI: Report Reviewed (Distended GB with thickening of the wall and not stones. dilated intra and extrahepatic ducts to the ampulla. Pancreatic duct not dilated. Bilateral pleural effusions,mild ascites) Problem List - Problems (1) Transaminitis Assessment/Plan: Asymptomatic I do not think the bilary ductal dilatation is related to the transaminitis. I suspect that the transaminitis is related to rhabdomylysis/recovering ischemic hepatopathy. LFTs not suggestive of obstructive process. gallbladder wall thickening likely reactive and related to significant hypoalbuminemia as opposed to acute cholecystitis. Will likely need further evaluation of the biliary tract as an outpatient with EUS Code(s): R74.0 - NONSPEC ELEV OF LEVELS OF TRANSAMNS & LACTIC ACID DEHYDRGNSE
[2018-02-14] MEDS ORDERED: PANTOPRAZOLE 40 MG TABLET (FP) PO SCH (10:00)
[2018-02-14] MEDS ORDERED: LABETALOL HCL 100 MG TABLET (FP) PO SCH ×2 (10:00→22:00)
[2018-02-14] MEDS ORDERED: MULTIVITAMINS THER W-MINERALS COMBO TABLET (FP) PO SCH (10:00)
--- NOTE | 2018-02-14 10:11 | PN ---
Progress Note (short form) - Note Progress Note: RENAL Pt is awake and alert Last Vital Signs Temp Pulse Resp BP Pulse Ox 98.6 F 53 L 29 H 139/81 98 02/14/18 06:00 02/14/18 08:00 02/14/18 08:00 02/14/18 08:00 02/13/18 22:00 lungs clear cvs s1s2 rr abd soft ext no edema neuro a+ox3 frazier with clear urine CBC, BMP 02/14/18 05:30 02/14/18 05:30 Current Medications Generic Name Dose Route Start Last Admin Trade Name Freq PRN Reason Stop Dose Admin Albuterol Sulfate 1 amp 02/12/18 09:54 02/12/18 11:45 Ventolin 0.5% - NEB 1 amp Q4H PRN Administration SHORT OF BREATH/WHEEZING Aspirin 81 mg 02/13/18 10:00 02/14/18 08:59 Ecotrin - PO 81 mg DAILY [facility] Administration Chlorhexidine Gluconate 1 applic 02/12/18 22:00 02/13/18 21:29 Hibiclens For Decolonization - TP 1 applic HS [facility] Administration Citalopram Hydrobromide 10 mg 02/13/18 10:00 02/14/18 08:59 Celexa - PO 10 mg DAILY [facility] Administration Heparin Sodium (Porcine) 5,000 unit 02/12/18 06:00 02/14/18 05:24 Heparin - SQ 5,000 unit TID [facility] Administration Piperacillin Sod/Tazobactam 50 mls @ 100 mls/hr 02/12/18 14:30 02/14/18 09:06 Sod 2.25 gm/ Dextrose IVPB 100 mls/hr Q8H-IV [facility] Administration Protocol Sodium Chloride 1,000 mls @ 150 mls/hr 02/14/18 09:00 Normal Saline - IV ASDIR [facility] Labetalol HCl 100 mg 02/14/18 10:00 02/14/18 09:06 Normodyne - PO 100 mg BID [facility] Administration Levetiracetam 500 mg 02/11/18 23:15 02/14/18 09:00 Keppra Injection - IVPB 500 mg BID [facility] Administration Multivitamins/Minerals 1 each 02/14/18 10:00 Theragran-M PO DAILY [facility] Mupirocin 1 applic 02/12/18 10:00 02/13/18 21:28 Bactroban Ointment (For Decolonization) - NS 02/17/18 09:59 1 applic BID [facility] Administration Ondansetron HCl 4 mg 02/12/18 00:21 Zofran Injection IVPB Q6H PRN NAUSEA Oxycodone HCl 5 mg 02/14/18 08:47 02/14/18 09:09 Roxicodone - PO 5 mg Q4H PRN Administration PAIN LEVEL 6-10 Oxycodone HCl 2.5 mg 02/14/18 08:47 Roxicodone - PO Q4H PRN PAIN LEVEL 1-5 Pantoprazole Sodium 40 mg 02/14/18 10:00 02/14/18 09:00 Protonix - PO 40 mg DAILY [facility] Administration IMPRESSION transaminitis from rhabdo improving with fluid rhabdo with rising creatinine PLAN she remains clear increase ivf and give lasix monitor volume status MV
[2018-02-14] MEDS: MUPIROCIN 2% TOPICAL OINTMENT FOR DECOLONIZATION NS SCH ×2 (10:23→21:50)
--- NOTE | 2018-02-14 12:46 | PN ---
Progress Note (short form) - Note Progress Note: cc: unresponsive s: no cp, palps, dizzy. feels better today, no complaints tele: sinus with episodes of sinus tachycardia and two episode of NSVT 140 bpm Current Medications Albuterol Sulfate (Ventolin 0.5% -) 1 amp NEB Q4H PRN PRN Reason: SHORT OF BREATH/WHEEZING Last Admin: 02/12/18 11:45 Dose: 1 amp Aspirin (Ecotrin -) 81 mg PO DAILY [facility] Last Admin: 02/14/18 08:59 Dose: 81 mg Chlorhexidine Gluconate (Hibiclens For Decolonization -) 1 applic TP HS [facility] Last Admin: 02/13/18 21:29 Dose: 1 applic Citalopram Hydrobromide (Celexa -) 10 mg PO DAILY [facility] Last Admin: 02/14/18 08:59 Dose: 10 mg Heparin Sodium (Porcine) (Heparin -) 5,000 unit SQ TID [facility] Last Admin: 02/14/18 05:24 Dose: 5,000 unit Piperacillin Sod/Tazobactam (Sod 2.25 gm/ Dextrose) 50 mls @ 100 mls/hr IVPB Q8H-IV [facility]ON; Protocol Last Admin: 02/14/18 09:06 Dose: 100 mls/hr Sodium Chloride (Normal Saline -) 1,000 mls @ 150 mls/hr IV ASDIR [facility] Last Admin: 02/14/18 10:22 Dose: 150 mls/hr Labetalol HCl (Normodyne -) 100 mg PO BID [facility] Last Admin: 02/14/18 09:06 Dose: 100 mg Levetiracetam (Keppra Injection -) 500 mg IVPB BID [facility] Last Admin: 02/14/18 09:00 Dose: 500 mg Multivitamins/Minerals (Theragran-M) 1 each PO DAILY [facility] Last Admin: 02/14/18 10:22 Dose: 1 each Mupirocin (Bactroban Ointment (For Decolonization) -) 1 applic NS BID [facility] Stop: 02/17/18 09:59 Last Admin: 02/14/18 10:23 Dose: 1 applic Ondansetron HCl (Zofran Injection) 4 mg IVPB Q6H PRN PRN Reason: NAUSEA Oxycodone HCl (Roxicodone -) 5 mg PO Q4H PRN PRN Reason: PAIN LEVEL 6-10 Last Admin: 02/14/18 09:09 Dose: 5 mg Oxycodone HCl (Roxicodone -) 2.5 mg PO Q4H PRN PRN Reason: PAIN LEVEL 1-5 Pantoprazole Sodium (Protonix -) 40 mg PO DAILY [facility] Last Admin: 02/14/18 09:00 Dose: 40 mg Vital Signs Period Temp Pulse Resp BP Sys/Gruber Pulse Ox Last 24 Hr 98.2 F-98.8 F 63-88 20-34 128-176/66-96 96-98 Constitutional: Yes: No Distress, Calm Eyes: Yes: Conjunctiva Clear, EOM Intact HENT: Yes: Atraumatic, Normocephalic Neck: Yes: Supple Respiratory: Yes: Regular, CTA Bilaterally Gastrointestinal: Yes: Normal Bowel Sounds, Soft Renal/: Yes: Kilpatrick Present Cardiovascular: Yes: Regular Rate and Rhythm JVD: No Heart Sounds: Yes: S1, S2 Edema: No Peripheral Pulses: 2+ Left Doralis Pedis, 2+ Right Dorsalis Pedis Neurological: Yes: Alert, Confusion, Weakness Psychiatric: Yes: Alert Assessment/Plan EK/23 sinus, nonspecific T wave changes. 02/12 sinus, TWI III, V1-V3 CXR: no acute process echo nl LV function EF >70%, mod TR, RV mildly dilated with borderline reduced function carotid ultrasound: moderate stenosis right carotid tele: two brief NSVT 4 beats, otherwise sinus 62F h/o opiod dependency, back pain using fentanyl patch, anxiety, seizure disorder p/w unresponsiveness, trop elevated, overdose trop elevation, NSTEMI - likely in setting of overdose, multiple metabolic abnormalities - trop peak at 7, echo normal LV function - noted to have bloody BM, blood on rectal exam per primary team, deferring heparin gtt and plavix - holding aspirin per neuro, deferring statin due to elevated LFTs Tachycardia - episodes of SVT on monitor, brief, HR 140s - started on labetolol, monitoring on tele HTN - started on labetolol, monitor QUINTEN - renal consulted, possible ATN from hypotension/sepsis - per renal receiving IVF and lasix elevated LFTs - likely in setting of rhabdo, receiving IVF/lasix as above - GI consulted as well, dilated CBD, less likely due to biliary source - defer statin as above stroke - r occipital - does not explain acute symptoms of R arm weakness - MRI neck per neuro, holding aspirin unresponsiveness - likely in setting of overdose (fentanyl in mouth, benzo+ in urine), possible sepsis, stroke, seizure - neurology consulted, on keppra - on IV abx, IV fluids, ID following - lactate improving, mental status improving leukocytosis - IV abx per primary team
[2018-02-14] MEDS ORDERED: ONDANSETRON 4 MG/2 ML VIAL IVPB PRN (19:23)
[2018-02-14] MEDS: CHLORHEXIDINE GLUCONATE 4% CLEANSER FOR DECOLONIZATION TP SCH (21:48)
[2018-02-15] MEDS ORDERED: PIPERACILLIN/TAZOBACTAM 2.25 GM VIAL IVPB ONE ×4 (01:31→23:58)
[2018-02-15] MEDS ORDERED: DEXTROSE 5%-WATER - 50 ML IVPB ONE ×4 (01:31→23:58)
[2018-02-15] MEDS: PIPERACILLIN/TAZOB 2.25 GM 2.25 GM in DEXTROSE 5%-WATER - 50 ML IVPB SCH ×3 (01:37→18:16)
[2018-02-15] MEDS: oxyCODONE HCL 5 MG TABLET PO PRN ×5 (02:29→21:53)
[2018-02-15] MEDS: SODIUM CHLORIDE 1,000 ML IV SCH (02:30)
[2018-02-15] MEDS: HEPARIN NA (PORCINE) 5,000 UNITS/ML 1ML VIAL SQ SCH ×3 (06:07→21:53)
[2018-02-15] MEDS: ALBUTEROL SO4 0.5 % INH SOLN 2.5 MG/0.5 ML VIAL.NEB. NEB PRN (06:19)
[2018-02-15 06:21] LABS: BASO % 0.3 % (0-2.0); EOS % 0.1 % (0-4.5); HEMATOCRIT 31.9 % (32.4-45.2); HEMOGLOBIN 10.3 GM/dL (10.7-15.3); LYMPH % 7.3 % (8-40); MCH 31.3 pg (25.7-33.7); MCHC 32.2 g/dl (32.0-36.0); MEAN PLT VOLUME 9.4 fl (7.5-11.1); MONO % 7.7 % (3.8-10.2); NEUT % 84.6 % (42.8-82.8); PLATELET COUNT 143 K/MM3 (134-434); RBC 3.29 M/mm3 (3.60-5.2); RDW 15.9 % (11.6-15.6); WHITE BLOOD COUNT 16.5 K/mm3 (4.0-10.0)
[2018-02-15 06:32] LABS: CHLORIDE 120 mmol/L (98-107); POTASSIUM 4.6 mmol/L (3.5-5.1); SODIUM 147 mmol/L (136-145)
[2018-02-15 06:39] LABS: ALBUMIN 2.1 g/dl (3.4-5.0); ALK PHOS 81 U/L (45-117); ANION GAP 14 MMOL/L (8-16); BILIRUBIN,TOTAL 0.6 mg/dL (0.2-1.0); BLOOD UREA NITROGEN 51 mg/dL (7-18); CALCIUM 7.1 mg/dL (8.5-10.1); CO2 13 mmol/L (21-32); CREATININE 4.8 mg/dL (0.55-1.02); GLUCOSE,RANDOM 98 mg/dL (74-106); PHOSPHOROUS 5.4 mg/dL (2.5-4.9); SGOT/AST 215 U/L (15-37); TOT PROT 4.5 g/dl (6.4-8.2)
[2018-02-15 06:41] LABS: SGPT/ALT 553 U/L (12-78)
[2018-02-15] MEDS ORDERED: SODIUM CHLORIDE 1,000 ML IV SCH (07:27)
[2018-02-15] MEDS: ASPIRIN COATED 81 MG TABLET.EC PO SCH (09:44)
[2018-02-15] MEDS: MULTIVITAMINS THER W-MINERALS COMBO TABLET (FP) PO SCH (09:45)
[2018-02-15] MEDS: PANTOPRAZOLE 40 MG TABLET (FP) PO SCH (09:45)
[2018-02-15] MEDS: levETIRAcetam 500 MG/5 ML INJECTION VIAL IVPB SCH ×2 (09:45→21:53)
[2018-02-15] MEDS: LABETALOL HCL 200 MG TABLET (FP) PO SCH ×2 (09:49→21:53)
--- NOTE | 2018-02-15 10:05 | PN ---
Progress Note (short form) - Note Progress Note: awake complaining of cough complaining of chronic back and leg pain requesting resumption of her pain meds alert Vital Signs Period Temp Pulse Resp BP Sys/Gruber Pulse Ox Last 24 Hr 98 F-98.4 F 68-81 18-28 160-186/73-101 99-99 cor-rrr lungs bilateral rhonchi abd soft nt ext no edema CBC, BMP 02/15/18 05:30 02/15/18 05:30 Microbiology 02/11/18 19:50 Blood - Peripheral Venous Blood Culture - Preliminary NO GROWTH OBTAINED AFTER 72 HOURS, INCUBATION TO CONTINUE FOR 2 DAYS. 02/11/18 19:50 Blood - Peripheral Venous Blood Culture - Preliminary NO GROWTH OBTAINED AFTER 72 HOURS, INCUBATION TO CONTINUE FOR 2 DAYS. 02/13/18 11:20 Stool Gram Stain - Final 02/13/18 11:20 Stool Salmonella/Shigella Culture - Preliminary Yeast Like Organism 02/13/18 11:20 Stool Yersinia Culture - Preliminary NO ENTERIC PATHOGENS, 24 HOURS, ON PRIMARY PLATES 02/13/18 11:20 Stool Vibrio Culture - Final NO GROWTH OF VIBRIO SPECIES OBTAINED 02/13/18 11:20 Stool Escherichia coli 0157 Culture - Final NO GROWTH OF E COLI 0157 OBTAINED 02/13/18 08:40 Urine - Urine Kilpatrick Urine Culture - Final NO GROWTH OBTAINED 02/13/18 11:20 Stool Clostridium difficile Antigen (CHRISTINA) - Final 02/13/18 11:20 Stool Clostridium difficile Toxin Assay - Final 02/11/18 21:35 Urine - Urine - Catheterized Urine Culture - Final NO GROWTH OBTAINED a/p probable overdose/?cva with intubation/hypotension-now extubated and awake abnl lft-improved NSTEMI ?ischemic colitis QUINTEN rahabdomyolysis cultures zosyn renally dosed repeat cxray r/o pneumonia urinary antigens Problem List - Problems (1) Overdose Code(s): T50.901A - POISONING BY UNSP DRUG/MEDS/BIOL SUBST, ACCIDENTAL, INIT Qualifiers: Encounter type: initial encounter Injury intent: undetermined intent Qualified Code(s): T50.904A - Poisoning by unspecified drugs, medicaments and biological substances, undetermined, initial encounter (2) Transaminitis Code(s): R74.0 - NONSPEC ELEV OF LEVELS OF TRANSAMNS & LACTIC ACID DEHYDRGNSE (3) Ischemic colitis, enteritis, or enterocolitis Code(s): K55.9 - VASCULAR DISORDER OF INTESTINE, UNSPECIFIED (4) QUINTEN (acute kidney injury) Code(s): N17.9 - ACUTE KIDNEY FAILURE, UNSPECIFIED (5) Rhabdomyolysis Code(s): M62.82 - RHABDOMYOLYSIS (6) NSTEMI (non-ST elevated myocardial infarction) Code(s): I21.4 - NON-ST ELEVATION (NSTEMI) MYOCARDIAL INFARCTION
[2018-02-15] MEDS ORDERED: LABETALOL HCL 100 MG TABLET (FP) PO ONE (10:22)
--- NOTE | 2018-02-15 10:31 | PN ---
Progress Note (short form) - Note Progress Note: cc: unresponsive s: no cp, palps, dizzy. no overnight events. +cigs tele: sr Current Medications Generic Name Dose Route Start Last Admin Trade Name Freq PRN Reason Stop Dose Admin Albuterol Sulfate 1 amp 02/14/18 19:23 02/15/18 06:19 Ventolin 0.5% - NEB 1 amp Q4H PRN Administration SHORT OF BREATH/WHEEZING Aspirin 81 mg 02/15/18 10:00 02/15/18 09:44 Ecotrin - PO 81 mg DAILY BR[facility]ON Administration Chlorhexidine Gluconate 1 applic 02/14/18 22:00 02/14/18 21:48 Hibiclens For Decolonization - TP 1 applic HS BR[facility]ON Administration Citalopram Hydrobromide 10 mg 02/15/18 10:00 Celexa - PO DAILY [facility] Heparin Sodium (Porcine) 5,000 unit 02/14/18 22:00 02/15/18 06:07 Heparin - SQ 5,000 unit TID [facility] Administration Piperacillin Sod/Tazobactam 50 mls @ 100 mls/hr 02/15/18 02:00 02/15/18 09:46 Sod 2.25 gm/ Dextrose IVPB 100 mls/hr Q8H-IV [facility]ON Administration Protocol Sodium Chloride 1,000 mls @ 200 mls/hr 02/15/18 07:27 02/15/18 09:43 Normal Saline - IV 200 mls/hr ASDIR BR[facility]ON Administration Labetalol HCl 200 mg 02/15/18 09:09 02/15/18 09:49 Normodyne - PO 200 mg BID [facility] Administration Levetiracetam 500 mg 02/14/18 22:00 02/15/18 09:45 Keppra Injection - IVPB 500 mg BID [facility] Administration Multivitamins/Minerals 1 each 02/15/18 10:00 02/15/18 09:45 Theragran-M PO 1 each DAILY [facility] Administration Mupirocin 1 applic 02/14/18 22:00 02/14/18 21:50 Bactroban Ointment (For Decolonization) - NS 02/17/18 09:59 1 applic BID [facility] Administration Ondansetron HCl 4 mg 02/14/18 19:23 Zofran Injection IVPB Q6H PRN NAUSEA Oxycodone HCl 5 mg 02/14/18 19:23 02/15/18 08:37 Roxicodone - PO 5 mg Q4H PRN Administration PAIN LEVEL 6-10 Oxycodone HCl 2.5 mg 02/14/18 19:23 Roxicodone - PO Q4H PRN PAIN LEVEL 1-5 Pantoprazole Sodium 40 mg 02/15/18 10:00 02/15/18 09:45 Protonix - PO 40 mg DAILY [facility]ON Administration Vital Signs Temp 98.2 F 02/15/18 06:00 Pulse 68 02/15/18 06:00 Resp 18 02/15/18 06:00 BP 183/73 02/15/18 06:00 Pulse Ox 99 02/14/18 22:00 Intake & Output 02/14/18 02/14/18 02/15/18 11:59 23:59 11:59 Intake Total 2500 2900 2050 Output Total 400 500 300 Balance 2100 2400 1750 Weight 154 lb 2 oz 168 lb Intake: IV 2400 2100 1800 Normal Saline - 1,000 ml 300 @ 150 mls/hr IV ASDIR BRANDON Rx#:[id number] Normal Saline - 1,000 ml 1800 @ 150 mls/hr IV ASDIR BRANDON Rx#:[id number] Normal Saline - 1,000 ml 2400 1800 @ 200 mls/hr IV ASDIR BRANDON Rx#:[id number] IVPB 100 250 200 Oral 0 550 50 Output: Urine 400 500 300 Kilpatrick 400 500 300 Other: Voiding Method Indwelling Catheter Indwelling Catheter Bowel Movement Yes Yes 2 # Bowel Movements 1 1 Weight Measurement Method Built in [facility] Constitutional: Yes: No Distress, Calm Eyes: Yes: Conjunctiva Clear Neck: Yes: Supple Respiratory: Yes: Regular, CTA Bilaterally Gastrointestinal: Yes: Normal Bowel Sounds, Soft Renal/: Yes: Kilpatrick Present Cardiovascular: Yes: Regular Rate and Rhythm JVD: No Heart Sounds: Yes: S1, S2 Edema: No Peripheral Pulses: 2+ Left Doralis Pedis, 2+ Right Dorsalis Pedis Neurological: Yes: aao3 Psychiatric: Yes: Alert no jaundice diaphoresis Assessment/Plan EK/23 sinus, nonspecific T wave changes. 02/12 sinus, TWI III, V1-V3 CXR: no acute process echo nl LV function EF >70%, mod TR, RV mildly dilated with borderline reduced function carotid ultrasound: moderate stenosis right carotid 62F h/o opioid dependency, back pain using fentanyl patch, anxiety, seizure disorder p/w unresponsiveness, trop elevated, overdose NSTEMI - echo normal LV function - noted to have bloody BM, blood on rectal exam per primary team, deferring heparin gtt and plavix - holding aspirin per neuro, deferring statin due to elevated LFTs - will need ischemic eval after acute issues resolved Tachycardia - episodes of SVT on monitor, brief--> started on labetolol, tele improved HTN -still elevated, will increase labetalol QUINTEN - possible ATN from hypotension/sepsis - renal following elevated LFTs - likely in setting of rhabdo, receiving IVF/lasix as above - GI consulted as well, dilated CBD, less likely due to biliary source - defer statin as above stroke - r occipital - MRI per neuro, holding aspirin unresponsiveness - likely in setting of overdose (fentanyl in mouth, benzo+ in urine), possible sepsis, stroke, seizure - neurology consulted, on keppra - on IV abx, IV fluids, ID following - lactate improving, mental status improving leukocytosis - IV abx per primary team
[2018-02-15] MEDS: CITALOPRAM HYDROBROMIDE 10 MG TABLET (FP) PO SCH (10:34)
[2018-02-15] MEDS ORDERED: FUROSEMIDE 40 MG/4 ML INJECTABLE VIAL IVPUSH ONE (10:37)
[2018-02-15] MEDS ORDERED: ALBUTEROL SO4 2.5/IPRATROPIUM 0.5 INH SOL 3 ML VIAL.NEB. NEB ONE (10:39)
--- NOTE | 2018-02-15 13:05 | PN ---
Progress Note, Physician History of Present Illness: Pt seen and examined at bedside. She is awake and alert. She denies shortness of breath. She says that she wad taking advil PM daily for years. She denies headache. She denies fevers or chills. - Current Medication List Current Medications: Active Medications Albuterol Sulfate (Ventolin 0.5% -) 1 amp NEB Q4H PRN PRN Reason: SHORT OF BREATH/WHEEZING Last Admin: 02/15/18 06:19 Dose: 1 amp Aspirin (Ecotrin -) 81 mg PO DAILY [facility] Last Admin: 02/15/18 09:44 Dose: 81 mg Chlorhexidine Gluconate (Hibiclens For Decolonization -) 1 applic TP HS [facility] Last Admin: 02/14/18 21:48 Dose: 1 applic Citalopram Hydrobromide (Celexa -) 10 mg PO DAILY [facility] Heparin Sodium (Porcine) (Heparin -) 5,000 unit SQ TID [facility] Last Admin: 02/15/18 06:07 Dose: 5,000 unit Piperacillin Sod/Tazobactam (Sod 2.25 gm/ Dextrose) 50 mls @ 100 mls/hr IVPB Q8H-IV [facility]; Protocol Last Admin: 02/15/18 09:46 Dose: 100 mls/hr Sodium Chloride (Normal Saline -) 1,000 mls @ 200 mls/hr IV ASDIR [facility] Last Admin: 02/15/18 09:43 Dose: 200 mls/hr Labetalol HCl (Normodyne -) 200 mg PO BID [facility] Last Admin: 02/15/18 09:49 Dose: 200 mg Levetiracetam (Keppra Injection -) 500 mg IVPB BID [facility] Last Admin: 02/15/18 09:45 Dose: 500 mg Multivitamins/Minerals (Theragran-M) 1 each PO DAILY [facility] Last Admin: 02/15/18 09:45 Dose: 1 each Mupirocin (Bactroban Ointment (For Decolonization) -) 1 applic NS BID [facility] Stop: 02/17/18 09:59 Last Admin: 02/14/18 21:50 Dose: 1 applic Ondansetron HCl (Zofran Injection) 4 mg IVPB Q6H PRN PRN Reason: NAUSEA Oxycodone HCl (Roxicodone -) 5 mg PO Q4H PRN PRN Reason: PAIN LEVEL 6-10 Last Admin: 02/15/18 08:37 Dose: 5 mg Oxycodone HCl (Roxicodone -) 2.5 mg PO Q4H PRN PRN Reason: PAIN LEVEL 1-5 Pantoprazole Sodium (Protonix -) 40 mg PO DAILY [facility] Last Admin: 02/15/18 09:45 Dose: 40 mg - Objective Vital Signs: Vital Signs Temperature 98.2 F 02/15/18 10:00 Pulse Rate 91 H 02/15/18 10:00 Respiratory Rate 18 02/15/18 10:00 Blood Pressure 123/80 02/15/18 10:00 O2 Sat by Pulse Oximetry (%) 99 02/15/18 09:00 Constitutional: Yes: Calm Eyes: Yes: Conjunctiva Clear HENT: Yes: Atraumatic Neck: Yes: Supple Cardiovascular: Yes: S1, S2 Respiratory: Yes: CTA Bilaterally Gastrointestinal: Yes: Soft Genitourinary: Yes: Kilpatrick Present Musculoskeletal: Yes: Muscle Weakness Edema: LLE: Trace, RLE: Trace Neurological: Yes: Oriented Psychiatric: Yes: Oriented Labs: CBC, BMP 02/15/18 05:30 02/15/18 05:30 INR, PTT INR 1.13 (0.83-1.09) H 02/11/18 19:50 Problem List - Problems (1) QUINTEN (acute kidney injury) Code(s): N17.9 - ACUTE KIDNEY FAILURE, UNSPECIFIED (2) Elevated liver enzymes Code(s): R74.8 - ABNORMAL LEVELS OF OTHER SERUM ENZYMES (3) Rhabdomyolysis Code(s): M62.82 - RHABDOMYOLYSIS Assessment/Plan Current Medications Generic Name Dose Route Start Last Admin Trade Name Freq PRN Reason Stop Dose Admin Albuterol Sulfate 1 amp 02/14/18 19:23 02/15/18 06:19 Ventolin 0.5% - NEB 1 amp Q4H PRN Administration SHORT OF BREATH/WHEEZING Aspirin 81 mg 02/15/18 10:00 02/15/18 09:44 Ecotrin - PO 81 mg DAILY [facility] Administration Chlorhexidine Gluconate 1 applic 02/14/18 22:00 02/14/18 21:48 Hibiclens For Decolonization - TP 1 applic HS [facility] Administration Citalopram Hydrobromide 10 mg 02/15/18 10:00 Celexa - PO DAILY [facility] Heparin Sodium (Porcine) 5,000 unit 02/14/18 22:00 02/15/18 06:07 Heparin - SQ 5,000 unit TID [facility] Administration Piperacillin Sod/Tazobactam 50 mls @ 100 mls/hr 02/15/18 02:00 02/15/18 09:46 Sod 2.25 gm/ Dextrose IVPB 100 mls/hr Q8H-IV [facility] Administration Protocol Sodium Chloride 1,000 mls @ 200 mls/hr 02/15/18 07:27 02/15/18 09:43 Normal Saline - IV 200 mls/hr ASDIR [facility] Administration Labetalol HCl 200 mg 02/15/18 09:09 02/15/18 09:49 Normodyne - PO 200 mg BID [facility] Administration Levetiracetam 500 mg 02/14/18 22:00 02/15/18 09:45 Keppra Injection - IVPB 500 mg BID [facility]ON Administration Multivitamins/Minerals 1 each 02/15/18 10:00 02/15/18 09:45 Theragran-M PO 1 each DAILY [facility] Administration Mupirocin 1 applic 02/14/18 22:00 02/14/18 21:50 Bactroban Ointment (For Decolonization) - NS 02/17/18 09:59 1 applic BID [facility] Administration Ondansetron HCl 4 mg 02/14/18 19:23 Zofran Injection IVPB Q6H PRN NAUSEA Oxycodone HCl 5 mg 02/14/18 19:23 02/15/18 08:37 Roxicodone - PO 5 mg Q4H PRN Administration PAIN LEVEL 6-10 Oxycodone HCl 2.5 mg 02/14/18 19:23 Roxicodone - PO Q4H PRN PAIN LEVEL 1-5 Pantoprazole Sodium 40 mg 02/15/18 10:00 02/15/18 09:45 Protonix - PO 40 mg DAILY [facility] Administration Impression 1. QUINTEN 2. Rhabdo 3. acidosis 4. transaminitis 5. altered mental status 6. overdose - opioid 7. sepsis 8. hypotension Plan - cont with fluids - change to 1/2 ns with amp of bicarb - cont to monitor urine ouput and volume status - lasix if she develops overload - check cpk level, ordered for today, will need to check daily - monitor LFTs - monitor bp - follow up cxr
[2018-02-15] MEDS ORDERED: SODIUM CHLORIDE 0.45% 1,000 ML with SODIUM BICARBONATE 8.4% - 50 MEQ IV SCH ×3 (13:15→15:00)
--- NOTE | 2018-02-15 14:32 | PN ---
Progress Note, HAND SPLITTER - Note Progress Note: Selected Entries 02/14/18 02/14/18 02/14/18 02:00 06:00 08:00 Breakfast 25% Lunch Temperature 98.4 F 98.6 F 02/14/18 02/14/18 02/14/18 10:00 14:00 15:28 Breakfast Lunch 25% Temperature 98.2 F 98.4 F 02/14/18 02/15/18 02/15/18 22:00 02:00 06:00 Breakfast Lunch Temperature 98 F 98.4 F 98.2 F 02/15/18 02/15/18 02/15/18 08:00 09:43 10:00 Breakfast 25% Lunch 25% Temperature 98.1 F 98.2 F Laboratory Tests 02/12/18 02/13/18 02/14/18 05:30 05:30 05:30 WBC 14.9 H 13.8 H 16.2 H 02/15/18 05:30 WBC 16.5 H Pt upgraded 02/14 to reg diet. Poor appetite, eating her cookies and soda. Denies difficulty chewing. Edentulous. Speech now precise. CXR noted. Pt reports diarrhea.
--- NOTE | 2018-02-15 14:35 | PN ---
Teaching Attending Note Name of Resident: Norm Pang ATTENDING PHYSICIAN STATEMENT I saw and evaluated the patient. I reviewed the resident's note and discussed the case with the resident. I agree with the resident's findings and plan as documented. SUBJECTIVE: No fever or chills. No abd pain. feels SOB . has cough . has diarrhea and incontinence when she coughs OBJECTIVE: NAD, more awake orientedx3 Cv: RRR, no MRG , JVD Lungs: bibasilar crackles and generalized wheezes Abd: soft, NT, NL BS Ext: no edema, no erythema. Neuro: EOM, no facial droop, round equal pupils , reactive to light. Strength: RUE: shoulder abduction 4/5, shoulder flexion 4/5, biceps 5, triceps 5/5. hand medical apparatus model maker 5/5. LUE: shoulder abduction 5/5, biceps 5/5 , triceps 5/5 .hand medical apparatus model maker 5/5 . RLE; hip flexion 5/5, knee flexion 5/5 , ankle dorsiflexion and plantar flexion 5/5 LLE: hip flexion 5/5 , knee flexion /extension 5/5/ , ankle dorsiflexionand plantarflexion 5/5 . reflexes : 1+ knee jerk and 2+ biceps b/l. Nl sensation to light touch all over Nl visual field ASSESSMENT AND PLAN: 62 y/o 62 y/o lady with h/o chronic opioids use, possible seizure disorder, anxiety, depression and panic attacks who was brought to ER due to unresponsiveness 1- Unresponsiveness/encephalopathy: likely due to opioid over dose - neuro exam with continued improvement in strength . - cont ASA, can't give statin - cont Keppra - EMG as out pt - refused MRA of neck , but will try today - control HTN - cont tele 2- HTN: increase Labetalol to 200 BID. No ACEI/ARB. 3- QUINTEN: Possible ATN from transient hypotension /sepsis/Rhabdo . UOP improved . renal function started to stabilize -Cont IVF. - will giev 40 of lasix as pt is volume overloaded ( acute diastolic heart failure ) , with wheezing, crackles , hypoxia and abn Cxray 4- Rhabdomyolysis: IVF , CPK improved 5- Transaminitis :possible stricture on MRCP.LFTS improved . - Gi follow up as out pt 6- Sepsis : unclear source. ? colon . wbc stable. blood cx and stool cx neg - cont zosyn - follow cultures 7- Normal AG Metabolic acidosis : likely due renal failure and diarrhea. bicarb added to IVF 8- NSTEMI: possible demand, - cont ASA . - can't use statin - tele 9- Rectal bleed : ishcemia vs internal hemorrhoids. resolved . stable HB monitor 10- chronic back pain , will increase oxy. Pain management consult. Dispo: [facility]
[2018-02-15] MEDS: MUPIROCIN 2% TOPICAL OINTMENT FOR DECOLONIZATION NS SCH ×2 (18:15→21:36)
--- NOTE | 2018-02-15 18:58 | PN ---
Physical Exam: SUBJECTIVE: Patient seen and examined in ICU at bedside. No acute overnight events. She complains of right lower leg pain, and back pain. States she receives a higher dose of oxycontin at home, and the dose she is receiving today is too little. OBJECTIVE: Vital Signs Period Temp Pulse Resp BP Sys/Gruber Pulse Ox Last 24 Hr 98 F-98.4 F 68-91 18-28 123-188/73-101 99-99 GENERAL: The patient is awake, alert, and fully oriented, in no acute distress. HEAD: Normocephalic atraumatic. EYES: PERRL, extraocular movements intact, sclera anicteric, conjunctiva clear. ENT: Oropharynx clear without exudates, moist mucous membranes. NECK: Supple without lymphadenopathy LUNGS: Diffuse crackles auscultated over left upper and lower lung lobes. No accessory muscle use. HEART: Regular rate and rhythm, S1, S2 without murmur, rub or gallop. ABDOMEN: Soft, nontender, nondistended, normoactive bowel sounds, no guarding, no rebound, no hepatosplenomegaly. EXTREMITIES: 2+ pulses, warm, well-perfused, no edema. NEUROLOGICAL: Cranial nerves II through XII grossly intact. Normal speech. Strength RUE abduction 3/5, flexion 4/5, extension 4/5. LUE abduction 4/5, flexion 4/5, extension 4/5. Right hip flexion 5/5, knee flexion and extension 5/ 5. Left hip flexion 5/5, knee flexion and extension 5/5. Plantarflexion and dorsiflexion 5/5/ B/L SKIN: Warm, dry, normal turgor. Laboratory Results - last 24 hr 02/11/18 02/15/18 02/15/18 19:50 05:30 05:30 WBC 16.5 H RBC 3.29 L Hgb 10.3 L Hct 31.9 L MCV 97.0 H MCH 31.3 MCHC 32.2 RDW 15.9 H Plt Count 143 MPV 9.4 Absolute Neuts (auto) 14.0 H Neutrophils % 84.6 H Lymphocytes % 7.3 L Monocytes % 7.7 Eosinophils % 0.1 D Basophils % 0.3 Nucleated RBC % 0 Sodium 147 H Potassium 4.6 Chloride 120 H Carbon Dioxide 13 L Anion Gap 14 BUN 51 H Creatinine 4.8 H Creat Clearance w eGFR 9.16 Random Glucose 98 Calcium 7.1 L Phosphorus 5.4 H Magnesium 2.0 Total Bilirubin 0.6 AST 215 H ALT 553 H Alkaline Phosphatase 81 Creatine Kinase Creatine Kinase Index CK-MB (CK-2) Total Protein 4.5 L Albumin 2.1 L Acetaminophen < 2.0 02/15/18 11:00 WBC RBC Hgb Hct MCV MCH MCHC RDW Plt Count MPV Absolute Neuts (auto) Neutrophils % Lymphocytes % Monocytes % Eosinophils % Basophils % Nucleated RBC % Sodium Potassium Chloride Carbon Dioxide Anion Gap BUN Creatinine Creat Clearance w eGFR Random Glucose Calcium Phosphorus Magnesium Total Bilirubin AST ALT Alkaline Phosphatase Creatine Kinase 700 H Creatine Kinase Index 1.3 CK-MB (CK-2) 9.13 H Total Protein Albumin Acetaminophen Active Medications Generic Name Dose Route Start Last Admin Trade Name Freq PRN Reason Stop Dose Admin Albuterol Sulfate 1 amp 02/14/18 19:23 02/15/18 06:19 Ventolin 0.5% - NEB 1 amp Q4H PRN Administration SHORT OF BREATH/WHEEZING Aspirin 81 mg 02/15/18 10:00 02/15/18 09:44 Ecotrin - PO 81 mg DAILY [facility] Administration Chlorhexidine Gluconate 1 applic 02/14/18 22:00 02/14/18 21:48 Hibiclens For Decolonization - TP 1 applic HS [facility] Administration Citalopram Hydrobromide 10 mg 02/15/18 10:00 02/15/18 10:34 Celexa - PO 10 mg DAILY [facility] Administration Heparin Sodium (Porcine) 5,000 unit 02/14/18 22:00 02/15/18 18:16 Heparin - SQ 5,000 unit TID [facility] Administration Piperacillin Sod/Tazobactam 50 mls @ 100 mls/hr 02/15/18 02:00 02/15/18 18:16 Sod 2.25 gm/ Dextrose IVPB 100 mls/hr Q8H-IV [facility] Administration Protocol Sodium Bicarbonate 50 meq/ 1,050 mls @ 150 mls/hr 02/15/18 15:00 Sodium Chloride IV ASDIR [facility] Labetalol HCl 200 mg 02/15/18 09:09 02/15/18 09:49 Normodyne - PO 200 mg BID [facility] Administration Levetiracetam 500 mg 02/14/18 22:00 02/15/18 09:45 Keppra Injection - IVPB 500 mg BID [facility] Administration Multivitamins/Minerals 1 each 02/15/18 10:00 02/15/18 09:45 Theragran-M PO 1 each DAILY [facility] Administration Mupirocin 1 applic 02/14/18 22:00 02/15/18 18:15 Bactroban Ointment (For Decolonization) - NS 02/17/18 09:59 1 applic BID [facility] Administration Ondansetron HCl 4 mg 02/14/18 19:23 Zofran Injection IVPB Q6H PRN NAUSEA Oxycodone HCl 2.5 mg 02/14/18 19:23 Roxicodone - PO Q4H PRN PAIN LEVEL 1-5 Oxycodone HCl 10 mg 02/15/18 16:46 Roxicodone - PO Q4H PRN PAIN LEVEL 6-10 Pantoprazole Sodium 40 mg 02/15/18 10:00 02/15/18 09:45 Protonix - PO 40 mg DAILY [facility] Administration ASSESSMENT/PLAN: 62 y/o female with opiod dependence, chronic pain, anxiety, depression, and seizure disorder presented unresponsive with a fentanyl patch in her mouth, admitted for unresponsiveness. Unresponsiveness -Likely secondary to opiod overdose as she was found with Fentanyl patch in her mouth. -Significant improvement in strength of right upper extremity and right lower extremities. -MRI showed right sided occipital stroke, which does not correlate with her physical exam. -MRA neck scheduled. Patient initially refused, however after discussion today, she is in agreement. -Kilpatrick catheter renewed -Continue Keppra 500 QUINTEN -Likely due to rhabdomyolisis which is resolving. -Nephrology consult appreciated: Fluids changed to 1/2 NS with 1amp bicarbonate -Will follow CPK NSTEMI- -Likely d/t demand ischemia -Continue aspirin 81 -No statins d/t increased LFTs -Echo showed normal LV function with EF >70% HTN -Labetalol increased to 200mg BID Right lower extremity pain -Oxycontin increased to 10mg -Pain management consult requested. Transaminitis: -Improving: AST 215, ALT 553, CPK 700 -MRCP showed distended gallbladder, dialted intrahepatic duct, dilated common bile duct, and ?stricture -GI consult appreciated: Patient will benefit from UES as outpatient. Prophylaxis -Heparin 5000units TID -Protonix 40mg PO FEN -1/2 NS with 1amp bicarbonate -Will follow BMP -Regular diet Disposition: Continue monitoring in Telemetry. Visit type - Emergency Visit Emergency Visit: No - New Patient This patient is new to me today: Yes Date on this admission: 02/15/18 - Critical Care Critical Care patient: Yes Total Critical Care Time (in minutes): 35 Critical Care Statement: The care of this patient involved high complexity decision making to prevent further life threatening deterioration of the patient 's condition and/or to evaluate & treat vital organ system(s) failure or risk of failure. - Discharge Referral Referred to [facility] Med P.C.: No
[2018-02-15] MEDS: CHLORHEXIDINE GLUCONATE 4% CLEANSER FOR DECOLONIZATION TP SCH (21:36)
[2018-02-15] MEDS ORDERED: guaiFENesin 200 MG/10 ML 10 ML UNIT-DOSE CUPS PO ONE (22:30)
[2018-02-15] MEDS: SODIUM BICARBONATE 8.4% - 50 MEQ in SODIUM CHLORIDE 0.45% 1,000 ML IV SCH (23:45)
[2018-02-16] MEDS ORDERED: ALBUTEROL SO4 0.083% IH SOL 2.5 MG/3 ML VIAL.NEB. NEB ONE ×2 (00:02→23:52)
[2018-02-16] MEDS: ALBUTEROL SO4 0.5 % INH SOLN 2.5 MG/0.5 ML VIAL.NEB. NEB PRN ×2 (00:13→23:57)
[2018-02-16] MEDS: PIPERACILLIN/TAZOB 2.25 GM 2.25 GM in DEXTROSE 5%-WATER - 50 ML IVPB SCH ×3 (01:22→17:23)
[2018-02-16] MEDS: oxyCODONE HCL 5 MG TABLET PO PRN ×4 (06:10→21:44)
[2018-02-16] MEDS: HEPARIN NA (PORCINE) 5,000 UNITS/ML 1ML VIAL SQ SCH ×3 (06:11→21:44)
[2018-02-16] MEDS: SODIUM BICARBONATE 8.4% - 50 MEQ in SODIUM CHLORIDE 0.45% 1,000 ML IV SCH (06:16)
[2018-02-16 07:04] LABS: BASO % 0.3 % (0-2.0); EOS % 0.6 % (0-4.5); HEMATOCRIT 31.6 % (32.4-45.2); HEMOGLOBIN 10.2 GM/dL (10.7-15.3); LYMPH % 9.3 % (8-40); MCH 31.4 pg (25.7-33.7); MCHC 32.3 g/dl (32.0-36.0); MEAN CELL VOLUME 97.1 fl (80-96); MONO % 10.1 % (3.8-10.2); NEUT % 79.7 % (42.8-82.8); PLATELET COUNT 144 K/MM3 (134-434); RBC 3.26 M/mm3 (3.60-5.2); RDW 15.9 % (11.6-15.6); WHITE BLOOD COUNT 15.6 K/mm3 (4.0-10.0)
[2018-02-16 07:51] LABS: CHLORIDE 117 mmol/L (98-107); POTASSIUM 4.5 mmol/L (3.5-5.1); SODIUM 143 mmol/L (136-145)
[2018-02-16 08:08] LABS: ALBUMIN 2.2 g/dl (3.4-5.0); ALK PHOS 89 U/L (45-117); ANION GAP 14 MMOL/L (8-16); BILIRUBIN,TOTAL 0.6 mg/dL (0.2-1.0); BLOOD UREA NITROGEN 57 mg/dL (7-18); CALCIUM 7.6 mg/dL (8.5-10.1); CO2 12 mmol/L (21-32); CREATININE 5.4 mg/dL (0.55-1.02); GLUCOSE,RANDOM 94 mg/dL (74-106); SGOT/AST 99 U/L (15-37); SGPT/ALT 392 U/L (12-78)
--- NOTE | 2018-02-16 09:25 | PN ---
Progress Note (short form) - Note Progress Note: cc: unresponsive s: no cp, palps, dizzy. no overnight events. +cigs tele: sr Current Medications Albuterol Sulfate (Ventolin 0.5% -) 1 amp NEB Q4H PRN PRN Reason: SHORT OF BREATH/WHEEZING Last Admin: 02/16/18 00:13 Dose: 1 amp Aspirin (Ecotrin -) 81 mg PO DAILY [facility] Last Admin: 02/15/18 09:44 Dose: 81 mg Citalopram Hydrobromide (Celexa -) 10 mg PO DAILY [facility] Last Admin: 02/15/18 10:34 Dose: 10 mg Heparin Sodium (Porcine) (Heparin -) 5,000 unit SQ TID [facility] Last Admin: 02/16/18 06:11 Dose: Not Given Piperacillin Sod/Tazobactam (Sod 2.25 gm/ Dextrose) 50 mls @ 100 mls/hr IVPB Q8H-IV [facility]; Protocol Last Admin: 02/16/18 01:22 Dose: 100 mls/hr Sodium Bicarbonate 50 meq/ (Sodium Chloride) 1,050 mls @ 150 mls/hr IV Q7H [facility] Last Admin: 02/16/18 06:16 Dose: 150 mls/hr Labetalol HCl (Normodyne -) 200 mg PO BID [facility] Last Admin: 02/15/18 21:53 Dose: 200 mg Levetiracetam (Keppra Injection -) 500 mg IVPB BID [facility] Last Admin: 02/15/18 21:53 Dose: 500 mg Multivitamins/Minerals (Theragran-M) 1 each PO DAILY [facility] Last Admin: 02/15/18 09:45 Dose: 1 each Ondansetron HCl (Zofran Injection) 4 mg IVPB Q6H PRN PRN Reason: NAUSEA Oxycodone HCl (Roxicodone -) 2.5 mg PO Q4H PRN PRN Reason: PAIN LEVEL 1-5 Oxycodone HCl (Roxicodone -) 10 mg PO Q4H PRN PRN Reason: PAIN LEVEL 6-10 Last Admin: 02/16/18 06:10 Dose: 10 mg Pantoprazole Sodium (Protonix -) 40 mg PO DAILY [facility] Last Admin: 02/15/18 09:45 Dose: 40 mg Vital Signs Period Temp Pulse Resp BP Sys/Gruber Pulse Ox Last 24 Hr 97.6 F-98.2 F 67-91 18-18 123-191/80-99 96 Constitutional: Yes: No Distress, Calm Eyes: Yes: Conjunctiva Clear Neck: Yes: Supple Respiratory: Yes: Regular, CTA Bilaterally Gastrointestinal: Yes: Normal Bowel Sounds, Soft Renal/: Yes: Kilpatrick Present Cardiovascular: Yes: Regular Rate and Rhythm JVD: No Heart Sounds: Yes: S1, S2 Edema: No Peripheral Pulses: 2+ Left Doralis Pedis, 2+ Right Dorsalis Pedis Neurological: Yes: aao3 Psychiatric: Yes: Alert no jaundice diaphoresis Assessment/Plan EK/23 sinus, nonspecific T wave changes. 02/12 sinus, TWI III, V1-V3 CXR: no acute process echo nl LV function EF >70%, mod TR, RV mildly dilated with borderline reduced function carotid ultrasound: moderate stenosis right carotid 62F h/o opioid dependency, back pain using fentanyl patch, anxiety, seizure disorder p/w unresponsiveness, trop elevated, overdose NSTEMI - echo normal LV function - noted to have bloody BM, blood on rectal exam per primary team, deferring heparin gtt and plavix - on aspirin 81 mg daily - deferring statin due to elevated LFTs - will need ischemic eval after acute issues resolved Tachycardia - episodes of SVT on monitor, brief--> started on labetolol, tele improved HTN -still elevated, will increase labetalol to 300 mg BID QUINTEN - possible ATN from hypotension/sepsis - renal following elevated LFTs - likely in setting of rhabdo, receiving IVF/lasix as above - GI consulted as well, dilated CBD, less likely due to biliary source - defer statin as above stroke - r occipital - on aspirin, holding statin unresponsiveness - likely in setting of overdose (fentanyl in mouth, benzo+ in urine), possible sepsis, stroke, seizure - neurology consulted, on keppra - on IV abx, IV fluids, ID following - lactate improving, mental status improving leukocytosis - IV abx per primary team
[2018-02-16] MEDS ORDERED: PT OWN MED DRAWER 7, Y5N ONE (10:31)
[2018-02-16] MEDS ORDERED: PIPERACILLIN/TAZOBACTAM 2.25 GM VIAL IVPB ONE ×2 (10:34→17:00)
[2018-02-16] MEDS ORDERED: DEXTROSE 5%-WATER - 50 ML IVPB ONE (10:34)
--- NOTE | 2018-02-16 10:54 | PN ---
Physical Exam: SUBJECTIVE: Patient seen and examined at bedside. She admits she slept well for "first time in days" last night, and admits significant improvement in her right lower extremity and back pain. Was given Robitussin overnight, and admits her breathing is also improved. OBJECTIVE: Vital Signs Period Temp Pulse Resp BP Sys/Gruber Pulse Ox Last 24 Hr 97.6 F-98.2 F 67-78 18-18 170-191/87-99 95-96 GENERAL: The patient is awake, alert, and fully oriented, in no acute distress. HEAD: Normal with no signs of trauma. EYES: PERRL, extraocular movements intact, sclera anicteric, conjunctiva clear. ENT: Oropharynx clear without exudates, moist mucous membranes. NECK: Supple without lymphadenopathy LUNGS: Faint wheezing and crackles auscultated B/L lower lung lobes, improved from yesterday exam. HEART: Regular rate and rhythm, S1, S2 without murmur, rub or gallop. ABDOMEN: Soft, nontender, nondistended, normoactive bowel sounds, no guarding, no rebound, no hepatosplenomegaly. EXTREMITIES: 2+ pulses, warm, well-perfused. NEUROLOGICAL: Cranial nerves II through XII grossly intact. Normal speech. Strength RUE abduction 4/5, flexion 5/5, extension 5/5. LUE abduction 5/5, flexion 5/5, extension 5/5. Right hip flexion 5/5, knee flexion and extension 5/ 5. Left hip flexion 5/5, knee flexion and extension 5/5. Plantarflexion and dorsiflexion 5/5/ B/L PSYCH: Appropriate mood and affect upon exam today SKIN: Warm, dry, normal turgor. Laboratory Results - last 24 hr 02/13/18 02/15/18 02/16/18 05:30 11:00 05:30 WBC RBC Hgb Hct MCV MCH MCHC RDW Plt Count MPV Absolute Neuts (auto) Neutrophils % Lymphocytes % Monocytes % Eosinophils % Basophils % Nucleated RBC % Sodium 143 Potassium 4.5 Chloride 117 H Carbon Dioxide 12 L Anion Gap 14 BUN 57 H Creatinine 5.4 H Creat Clearance w eGFR 8.00 Random Glucose 94 Calcium 7.6 L Total Bilirubin 0.6 AST 99 H ALT 392 H Alkaline Phosphatase 89 Creatine Kinase 700 H 289 H Creatine Kinase Index 1.3 1.7 CK-MB (CK-2) 9.13 H 5.06 H Total Protein 5.0 L Albumin 2.2 L LIANET Screen Negative Smooth Musc &MOISTURE TESTER Intrp 3 02/16/18 05:30 WBC 15.6 H RBC 3.26 L Hgb 10.2 L Hct 31.6 L MCV 97.1 H MCH 31.4 MCHC 32.3 RDW 15.9 H Plt Count 144 MPV 9.0 Absolute Neuts (auto) 12.4 H Neutrophils % 79.7 Lymphocytes % 9.3 D Monocytes % 10.1 Eosinophils % 0.6 D Basophils % 0.3 Nucleated RBC % 0 Sodium Potassium Chloride Carbon Dioxide Anion Gap BUN Creatinine Creat Clearance w eGFR Random Glucose Calcium Total Bilirubin AST ALT Alkaline Phosphatase Creatine Kinase Creatine Kinase Index CK-MB (CK-2) Total Protein Albumin LIANET Screen Smooth Musc &MOISTURE TESTER Intrp Active Medications Generic Name Dose Route Start Last Admin Trade Name Freq PRN Reason Stop Dose Admin Albuterol Sulfate 1 amp 02/14/18 19:23 02/16/18 00:13 Ventolin 0.5% - NEB 1 amp Q4H PRN Administration SHORT OF BREATH/WHEEZING Aspirin 81 mg 02/15/18 10:00 02/15/18 09:44 Ecotrin - PO 81 mg DAILY [facility] Administration Citalopram Hydrobromide 10 mg 02/15/18 10:00 02/15/18 10:34 Celexa - PO 10 mg DAILY [facility] Administration Heparin Sodium (Porcine) 5,000 unit 02/14/18 22:00 02/16/18 06:11 Heparin - SQ Not Given TID [facility] Piperacillin Sod/Tazobactam 50 mls @ 100 mls/hr 02/15/18 02:00 02/16/18 01:22 Sod 2.25 gm/ Dextrose IVPB 100 mls/hr Q8H-IV [facility] Administration Protocol Sodium Bicarbonate 50 meq/ 1,050 mls @ 150 mls/hr 02/15/18 23:45 02/16/18 06: 16 Sodium Chloride IV 150 mls/hr Q7H [facility] Administration Labetalol HCl 200 mg 02/15/18 09:09 02/15/18 21:53 Normodyne - PO 200 mg BID [facility] Administration Levetiracetam 500 mg 02/14/18 22:00 02/15/18 21:53 Keppra Injection - IVPB 500 mg BID [facility] Administration Multivitamins/Minerals 1 each 02/15/18 10:00 02/15/18 09:45 Theragran-M PO 1 each DAILY [facility] Administration Ondansetron HCl 4 mg 02/14/18 19:23 Zofran Injection IVPB Q6H PRN NAUSEA Oxycodone HCl 2.5 mg 02/14/18 19:23 Roxicodone - PO Q4H PRN PAIN LEVEL 1-5 Oxycodone HCl 10 mg 02/15/18 16:46 02/16/18 06:10 Roxicodone - PO 10 mg Q4H PRN Administration PAIN LEVEL 6-10 Pantoprazole Sodium 40 mg 02/15/18 10:00 02/15/18 09:45 Protonix - PO 40 mg DAILY [facility] Administration 62 y/o female with opiod dependence, chronic pain, anxiety, depression, and seizure disorder presented unresponsive with a fentanyl patch in her mouth, admitted for unresponsiveness. Unresponsiveness -Likely secondary to opiod overdose as she was found with Fentanyl patch in her mouth. -Significant improvement in strength of right upper extremity and right lower extremities. -MRI showed right sided occipital stroke, which does not correlate with her physical exam. -MRA neck scheduled. Patient initially refused, however after discussion yesterday, she is in agreement. -Kilpatrick catheter renewed -Keppra 500 IV BID switched to Keppra 500 PO BID -CXR today showed left pleural effusion, left lower lobe pneumonia with compressive atelectasis. -Continue Zosyn 2.25mg IVPB Q8H QUINTEN -Likely due to rhabdomyolisis which is resolving. -Nephrology consult appreciated: Fluids discontinued. Patient to consider possibility of HD if renal function does not improve. -Sodium Bicarb 650mg PO BID per nephrology -Diuresis with Lasix 40mg IV -Will follow CPK- improving 289 today decreased from 700 -Will F/U C-AnCA Antinuclear AB, Anti GBM AB, DS DNA AB NSTEMI- -Likely d/t demand ischemia -Continue aspirin 81 -No statins d/t increased LFTs -Echo showed normal LV function with EF >70% HTN -Labetalol 300mg BID -Begin Norvasc 5gm Right lower extremity pain -Oxycontin increased to 10mg -F/U pain management consult Transaminitis: -Improving: AST 99, ALT 392 CPK 289 -MRCP showed distended gallbladder, dialted intrahepatic duct, dilated common bile duct, and ?stricture -GI consult appreciated: Patient will benefit from UES as outpatient. Prophylaxis -Heparin 5000units TID -Protonix 40mg PO FEN -No IV fluids -Will follow BMP -Regular diet Disposition: Continue monitoring in Telemetry. Visit type - Emergency Visit Emergency Visit: No - New Patient This patient is new to me today: No - Critical Care Critical Care patient: No - Discharge Referral Referred to [facility] Med P.C.: No
[2018-02-16] MEDS: CITALOPRAM HYDROBROMIDE 10 MG TABLET (FP) PO SCH (11:27)
[2018-02-16] MEDS: ASPIRIN COATED 81 MG TABLET.EC PO SCH (11:27)
[2018-02-16] MEDS: LABETALOL HCL 200 MG TABLET (FP) PO SCH ×2 (11:28→21:42)
[2018-02-16] MEDS: PANTOPRAZOLE 40 MG TABLET (FP) PO SCH (11:28)
[2018-02-16] MEDS: MULTIVITAMINS THER W-MINERALS COMBO TABLET (FP) PO SCH (11:28)
[2018-02-16] MEDS: levETIRAcetam 500 MG/5 ML INJECTION VIAL IVPB SCH (11:28)
[2018-02-16] MEDS ORDERED: FUROSEMIDE 40 MG/4 ML INJECTABLE VIAL IVPUSH ONE (11:39)
[2018-02-16] MEDS: amLODIPine BESYLATE 5 MG TABLET (FP) PO SCH (12:53)
[2018-02-16 13:34] LABS: ANISOCYTOSIS 1+; MACROCYTOSIS 1+; PLATELET ESTIMATE NORMAL
--- NOTE | 2018-02-16 15:41 | PN ---
Progress Note, Physician History of Present Illness: Pt seen and examined at bedside. She is awake and alert. She had shortness of breath earlier and she felt that is improved with lasix. - Current Medication List Current Medications: Active Medications Albuterol Sulfate (Ventolin 0.5% -) 1 amp NEB Q4H PRN PRN Reason: SHORT OF BREATH/WHEEZING Last Admin: 02/16/18 00:13 Dose: 1 amp Amlodipine Besylate (Norvasc -) 5 mg PO DAILY [facility] Last Admin: 02/16/18 12:53 Dose: 5 mg Aspirin (Ecotrin -) 81 mg PO DAILY [facility] Last Admin: 02/16/18 11:27 Dose: 81 mg Citalopram Hydrobromide (Celexa -) 10 mg PO DAILY [facility] Last Admin: 02/16/18 11:27 Dose: 10 mg Heparin Sodium (Porcine) (Heparin -) 5,000 unit SQ TID [facility] Last Admin: 02/16/18 14:43 Dose: 5,000 unit Piperacillin Sod/Tazobactam (Sod 2.25 gm/ Dextrose) 50 mls @ 100 mls/hr IVPB Q8H-IV [facility]; Protocol Last Admin: 02/16/18 11:28 Dose: 100 mls/hr Labetalol HCl (Normodyne -) 300 mg PO BID [facility] Levetiracetam (Keppra Injection -) 500 mg IVPB BID [facility] Last Admin: 02/16/18 11:28 Dose: 500 mg Multivitamins/Minerals (Theragran-M) 1 each PO DAILY [facility] Last Admin: 02/16/18 11:28 Dose: 1 each Ondansetron HCl (Zofran Injection) 4 mg IVPB Q6H PRN PRN Reason: NAUSEA Oxycodone HCl (Roxicodone -) 2.5 mg PO Q4H PRN PRN Reason: PAIN LEVEL 1-5 Oxycodone HCl (Roxicodone -) 10 mg PO Q4H PRN PRN Reason: PAIN LEVEL 6-10 Last Admin: 02/16/18 11:27 Dose: 10 mg Pantoprazole Sodium (Protonix -) 40 mg PO DAILY [facility] Last Admin: 02/16/18 11:28 Dose: 40 mg Sodium Bicarbonate (Sodium Bicarbonate -) 650 mg PO BID [facility] - Objective Vital Signs: Vital Signs Temperature 98.0 F 02/16/18 14:00 Pulse Rate 66 02/16/18 14:00 Respiratory Rate 18 02/16/18 09:00 Blood Pressure 144/72 02/16/18 14:00 O2 Sat by Pulse Oximetry (%) 95 02/16/18 09:00 Constitutional: Yes: Calm Eyes: Yes: Conjunctiva Clear HENT: Yes: Atraumatic Neck: Yes: Supple Cardiovascular: Yes: S1, S2 Respiratory: Yes: On Nasal O2, Rhonchi Gastrointestinal: Yes: Soft Genitourinary: Yes: Kilpatrick Present Musculoskeletal: Yes: WNL Edema: Yes Edema: LLE: 1+, RLE: 1+ Neurological: Yes: Oriented Psychiatric: Yes: Oriented Labs: CBC, BMP 02/16/18 05:30 02/16/18 05:30 INR, PTT INR 1.13 (0.83-1.09) H 02/11/18 19:50 Problem List - Problems (1) QUINTEN (acute kidney injury) Code(s): N17.9 - ACUTE KIDNEY FAILURE, UNSPECIFIED (2) Elevated liver enzymes Code(s): R74.8 - ABNORMAL LEVELS OF OTHER SERUM ENZYMES (3) Rhabdomyolysis Code(s): M62.82 - RHABDOMYOLYSIS Assessment/Plan Current Medications Generic Name Dose Route Start Last Admin Trade Name Freq PRN Reason Stop Dose Admin Albuterol Sulfate 1 amp 02/14/18 19:23 02/16/18 00:13 Ventolin 0.5% - NEB 1 amp Q4H PRN Administration SHORT OF BREATH/WHEEZING Amlodipine Besylate 5 mg 02/16/18 11:30 02/16/18 12:53 Norvasc - PO 5 mg DAILY [facility] Administration Aspirin 81 mg 02/15/18 10:00 02/16/18 11:27 Ecotrin - PO 81 mg DAILY [facility] Administration Citalopram Hydrobromide 10 mg 02/15/18 10:00 02/16/18 11:27 Celexa - PO 10 mg DAILY [facility] Administration Heparin Sodium (Porcine) 5,000 unit 02/14/18 22:00 02/16/18 14:43 Heparin - SQ 5,000 unit TID [facility] Administration Piperacillin Sod/Tazobactam 50 mls @ 100 mls/hr 02/15/18 02:00 02/16/18 11:28 Sod 2.25 gm/ Dextrose IVPB 100 mls/hr Q8H-IV [facility] Administration Protocol Labetalol HCl 300 mg 02/16/18 22:00 Normodyne - PO BID [facility] Levetiracetam 500 mg 02/14/18 22:00 02/16/18 11:28 Keppra Injection - IVPB 500 mg BID [facility] Administration Multivitamins/Minerals 1 each 02/15/18 10:00 02/16/18 11:28 Theragran-M PO 1 each DAILY [facility] Administration Ondansetron HCl 4 mg 02/14/18 19:23 Zofran Injection IVPB Q6H PRN NAUSEA Oxycodone HCl 2.5 mg 02/14/18 19:23 Roxicodone - PO Q4H PRN PAIN LEVEL 1-5 Oxycodone HCl 10 mg 02/15/18 16:46 02/16/18 11:27 Roxicodone - PO 10 mg Q4H PRN Administration PAIN LEVEL 6-10 Pantoprazole Sodium 40 mg 02/15/18 10:00 02/16/18 11:28 Protonix - PO 40 mg DAILY [facility] Administration Sodium Bicarbonate 650 mg 02/16/18 15:36 Sodium Bicarbonate - PO BID [facility] Laboratory Tests 02/13/18 02/15/18 05:30 11:00 Sodium Carbon Dioxide Creatine Kinase 6524 H 700 H 02/16/18 05:30 Sodium Creatine Kinase 289 H Impression 1. QUINTEN 2. Rhabdo 3. acidosis 4. transaminitis 5. altered mental status 6. overdose - opioid 7. sepsis 8. hypotension Plan - d/c fluids - agree with lasix - cpk is improved - monitor urine output, which is improving - will give bicarb - oxygen requirements are improved - more extensive renal workup ordered - discussed possibility of HD if she does not improve - monitor LFTs - discussed with medical team Dr Macario
[2018-02-16] MEDS: SODIUM BICARBONATE 650 MG TABLET PO SCH ×2 (16:17→21:42)
[2018-02-16] MEDS ORDERED: DEXTROSE 5%-WATER - 100 ML IVPB ONE (17:01)
--- NOTE | 2018-02-16 17:35 | PN ---
Teaching Attending Note Name of Resident: Melvin Dutton ATTENDING PHYSICIAN STATEMENT I saw and evaluated the patient. I reviewed the resident's note and discussed the case with the resident. I agree with the resident's findings and plan as documented. SUBJECTIVE:seen early this am cont to feel SOB . No fever or chills. No Abd pain. hypoxic earlier OBJECTIVE: NAD, awake, tachypnic Cv: RRR, no MRG , JVD Lungs: bibasilar crackles and occasional wheezes Abd: soft, NT, NL BS Ext:R thigh circumference > L . R foot edema ASSESSMENT AND PLAN: 62 y/o 62 y/o lady with h/o chronic opioids use, possible seizure disorder, anxiety, depression and panic attacks who was brought to ER due to unresponsiveness 1- Unresponsiveness/encephalopathy: likely due to opioid overdose. resolved 2- R occipital stroke : - cont ASA, can't give statin - cont Keppra for seizure disorder - EMG as out pt - MRA of neck with no significant stenosis - cont tele 3- HTN: cont labetalol and add Norvasc 5- QUINTEN: Possible ATN from transient hypotension /sepsis/Rhabdo . UOP improved . -dc IVF due to volume overload - diuresis 6- acute hypoxic resp failure : due to acute diastolic heart failure and renal failure - lasix 40 today . can repeat as needed - dc IVF 7- Rhabdomyolysis: CPK improved 8- Transaminitis :possible stricture on MRCP. LFTS improved. - Gi follow up as out pt 9- Sepsis : unclear source. ? colon . wbc stable. blood cx and stool cx neg - cont zosyn - follow cultures 10- Normal AG Metabolic acidosis : likely due renal failure and diarrhea. 11- NSTEMI: possible demand, - cont ASA . - can't use statin - tele 12- Rectal bleed : ishcemia vs internal hemorrhoids. resolved . stable HB monitor 13- chronic back pain , oxy at increased dose. will not resume fentanyl patch . Pain management consult. Dispo: [facility]
[2018-02-16] MEDS: levETIRAcetam 500 MG TABLET (FP) PO SCH (21:42)
[2018-02-17] MEDS ORDERED: PIPERACILLIN/TAZOBACTAM 2.25 GM VIAL IVPB ONE ×3 (00:34→17:53)
[2018-02-17] MEDS ORDERED: DEXTROSE 5%-WATER - 50 ML IVPB ONE ×3 (00:34→17:53)
[2018-02-17] MEDS: PIPERACILLIN/TAZOB 2.25 GM 2.25 GM in DEXTROSE 5%-WATER - 50 ML IVPB SCH ×3 (01:17→17:58)
[2018-02-17] MEDS ORDERED: ALBUTEROL SO4 0.083% IH SOL 2.5 MG/3 ML VIAL.NEB. NEB ONE (05:26)
[2018-02-17] MEDS: HEPARIN NA (PORCINE) 5,000 UNITS/ML 1ML VIAL SQ SCH ×3 (05:27→21:21)
[2018-02-17] MEDS: oxyCODONE HCL 5 MG TABLET PO PRN ×4 (05:27→22:14)
[2018-02-17] MEDS: ALBUTEROL SO4 0.5 % INH SOLN 2.5 MG/0.5 ML VIAL.NEB. NEB PRN (05:29)
[2018-02-17 07:28] LABS: BASO % 0.4 % (0-2.0); EOS % 1.4 % (0-4.5); HEMOGLOBIN 10.1 GM/dL (10.7-15.3); LYMPH % 7.5 % (8-40); MCH 31.5 pg (25.7-33.7); MCHC 32.5 g/dl (32.0-36.0); MEAN PLT VOLUME 9.1 fl (7.5-11.1); MONO % 11.1 % (3.8-10.2); NEUT % 79.6 % (42.8-82.8); PLATELET COUNT 163 K/MM3 (134-434); RBC 3.19 M/mm3 (3.60-5.2); RDW 15.5 % (11.6-15.6); WHITE BLOOD COUNT 15.6 K/mm3 (4.0-10.0)
[2018-02-17 07:49] LABS: ANION GAP 15 MMOL/L (8-16); BLOOD UREA NITROGEN 62 mg/dL (7-18); CALCIUM 7.8 mg/dL (8.5-10.1); CHLORIDE 116 mmol/L (98-107); CO2 15 mmol/L (21-32); CREATININE 5.7 mg/dL (0.55-1.02); GLUCOSE,RANDOM 95 mg/dL (74-106); POTASSIUM 3.9 mmol/L (3.5-5.1); SODIUM 146 mmol/L (136-145)
--- NOTE | 2018-02-17 08:28 | PN ---
Teaching Attending Note Name of Resident: Melvin Dutton ATTENDING PHYSICIAN STATEMENT I saw and evaluated the patient. I reviewed the resident's note and discussed the case with the resident. I agree with the resident's findings and plan as documented. SUBJECTIVE: Patient is lying in bed with no acute distress. OBJECTIVE: Vital Signs Temperature 98.1 F 02/17/18 05:00 Pulse Rate 82 02/17/18 05:00 Respiratory Rate 22 02/17/18 05:00 Blood Pressure 156/81 02/17/18 05:00 O2 Sat by Pulse Oximetry (%) 95 02/16/18 21:00 CBCD WBC 15.6 K/mm3 (4.0-10.0) H 02/17/18 06:48 RBC 3.19 M/mm3 (3.60-5.2) L 02/17/18 06:48 Hgb 10.1 GM/dL (10.7-15.3) L 02/17/18 06:48 Hct 31.0 % (32.4-45.2) L 02/17/18 06:48 MCV 97.0 fl (80-96) H 02/17/18 06:48 MCHC 32.5 g/dl (32.0-36.0) 02/17/18 06:48 RDW 15.5 % (11.6-15.6) 02/17/18 06:48 Plt Count 163 K/MM3 (134-434) 02/17/18 06:48 MPV 9.1 fl (7.5-11.1) 02/17/18 06:48 CMP Sodium 146 mmol/L (136-145) H 02/17/18 06:48 Potassium 3.9 mmol/L (3.5-5.1) 02/17/18 06:48 Chloride 116 mmol/L (98-107) H 02/17/18 06:48 Carbon Dioxide 15 mmol/L (21-32) L 02/17/18 06:48 Anion Gap 15 MMOL/L (8-16) 02/17/18 06:48 BUN 62 mg/dL (7-18) H 02/17/18 06:48 Creatinine 5.7 mg/dL (0.55-1.02) H 02/17/18 06:48 Creat Clearance w eGFR 7.51 (>60) 02/17/18 06:48 Random Glucose 95 mg/dL (74-106) 02/17/18 06:48 Calcium 7.8 mg/dL (8.5-10.1) L 02/17/18 06:48 Total Bilirubin 0.6 mg/dL (0.2-1.0) 02/16/18 05:30 AST 99 U/L (15-37) H 02/16/18 05:30 ALT 392 U/L (12-78) H 02/16/18 05:30 Alkaline Phosphatase 89 U/L (45-117) 02/16/18 05:30 Total Protein 5.0 g/dl (6.4-8.2) L 02/16/18 05:30 Albumin 2.2 g/dl (3.4-5.0) L 02/16/18 05:30 CARDIAC ENZYMES Creatine Kinase 289 IU/L (26-192) H 02/16/18 05:30 Troponin I 5.73 ng/ml (0.00-0.05) H* 02/13/18 05:30 Current Medications Generic Name Dose Route Start Last Admin Trade Name Freq PRN Reason Stop Dose Admin Albuterol Sulfate 1 amp 02/14/18 19:23 02/17/18 05:29 Ventolin 0.5% - NEB 1 amp Q4H PRN Administration SHORT OF BREATH/WHEEZING Amlodipine Besylate 5 mg 02/16/18 11:30 02/16/18 12:53 Norvasc - PO 5 mg DAILY [facility] Administration Aspirin 81 mg 02/15/18 10:00 02/16/18 11:27 Ecotrin - PO 81 mg DAILY [facility] Administration Citalopram Hydrobromide 10 mg 02/15/18 10:00 02/16/18 11:27 Celexa - PO 10 mg DAILY [facility] Administration Heparin Sodium (Porcine) 5,000 unit 02/14/18 22:00 02/17/18 05:27 Heparin - SQ 5,000 unit TID [facility] Administration Piperacillin Sod/Tazobactam 50 mls @ 100 mls/hr 02/15/18 02:00 02/17/18 01:17 Sod 2.25 gm/ Dextrose IVPB 100 mls/hr Q8H-IV [facility] Administration Protocol Labetalol HCl 300 mg 02/16/18 22:00 02/16/18 21:42 Normodyne - PO 300 mg BID [facility] Administration Levetiracetam 500 mg 02/16/18 22:00 02/16/18 21:42 Keppra - PO 500 mg BID [facility] Administration Multivitamins/Minerals 1 each 02/15/18 10:00 02/16/18 11:28 Theragran-M PO 1 each DAILY [facility] Administration Ondansetron HCl 4 mg 02/14/18 19:23 Zofran Injection IVPB Q6H PRN NAUSEA Oxycodone HCl 2.5 mg 02/14/18 19:23 Roxicodone - PO Q4H PRN PAIN LEVEL 1-5 Oxycodone HCl 10 mg 02/15/18 16:46 02/17/18 05:27 Roxicodone - PO 10 mg Q4H PRN Administration PAIN LEVEL 6-10 Pantoprazole Sodium 40 mg 02/15/18 10:00 02/16/18 11:28 Protonix - PO 40 mg DAILY [facility] Administration Sodium Bicarbonate 650 mg 02/16/18 15:36 02/16/18 21:42 Sodium Bicarbonate - PO 650 mg BID [facility] Administration Home Medications Medication Instructions Recorded Citalopram Hydrobromide [Celexa -] 10 mg PO DAILY #14 tablet 06/09/17 Gabapentin 800 mg PO TID 02/12/18 oxyCODONE HCL [Roxicodone -] 10 mg PO Q6H PRN MDD 40 02/12/18 Microbiology 02/11/18 19:50 Blood - Peripheral Venous Blood Culture - Final NO GROWTH AFTER 5 DAYS INCUBATION 02/11/18 19:50 Blood - Peripheral Venous Blood Culture - Final NO GROWTH AFTER 5 DAYS INCUBATION 02/16/18 06:00 Urine For Antigen Detection Legionella Antigen - Final 02/16/18 06:00 Urine For Antigen Detection Streptococcus pneumoniae Antigen (M - Final 02/13/18 11:20 Stool Salmonella/Shigella Culture - Final Yeast Like Organism 02/13/18 11:20 Stool Campylobacter Culture - Final NO GROWTH OF CAMPYLOBACTER SPECIES OBTAINED 02/13/18 11:20 Stool Yersinia Culture - Final NO GROWTH OF YERSINIA SPECIES OBTAINED 02/13/18 11:20 Stool Vibrio Culture - Final NO GROWTH OF VIBRIO SPECIES OBTAINED 02/13/18 11:20 Stool Escherichia coli 0157 Culture - Final NO GROWTH OF E COLI 0157 OBTAINED 02/13/18 11:20 Stool Gram Stain - Final 02/13/18 08:40 Urine - Urine Kilpatrick Urine Culture - Final NO GROWTH OBTAINED 02/13/18 11:20 Stool Clostridium difficile Antigen (CHRISTINA) - Final 02/13/18 11:20 Stool Clostridium difficile Toxin Assay - Final 02/11/18 21:35 Urine - Urine - Catheterized Urine Culture - Final NO GROWTH OBTAINED PE: per resident's note ASSESSMENT AND PLAN: Patient is a 62yo female with PMHx of chronic opioids use, possible seizure disorder due to opioids withdrawel, anxiety, depression and panic attacks who was brought in to ED since was found to be unresponsive. # Opioid Overdose was found to be unresponsive resolved # Right occipital stroke : on ASA, can't give statin due to having rhabdo and presented with RF, MRA of neck with no significant stenosis #Seizure disorder on Keppra continue # HTN: On labetalol and Norvasc continue # QUINTEN: Possible ATN from transient hypotension /sepsis/Rhabdo . UOP improved . off IVF due to volume overload diuresis as per nephro , lasix as needed # acute hypoxic resp failure : due to acute diastolic heart failure and renal failure , # Rhabdomyolysis: CPK improved , can't give statins due to Rhabdo. # Transaminitis :possible stricture on MRCP. LFTS improved. Gi follow up as out pt # s/p Sepsis : unclear source.. blood cx and stool cx neg. On zosyn , no growth so far # Normal AG Metabolic acidosis : likely due renal failure and diarrhea. # NSTEMI: possible due to demand ischemia on ASA, can't give statins due to renal failure . #- Rectal bleed : ischemic vs internal hemorrhoids. resolved . hemoglobin stable. #- chronic back pain: On oxycodone prn. will not resume fentanyl patch . Pain management consult. #Hx of depression continue Celexa DVT Px: heparin
[2018-02-17] MEDS: levETIRAcetam 500 MG TABLET (FP) PO SCH ×2 (09:27→21:21)
[2018-02-17] MEDS: PANTOPRAZOLE 40 MG TABLET (FP) PO SCH (09:27)
[2018-02-17] MEDS: MULTIVITAMINS THER W-MINERALS COMBO TABLET (FP) PO SCH (09:27)
[2018-02-17] MEDS: SODIUM BICARBONATE 650 MG TABLET PO SCH ×3 (09:27→21:21)
[2018-02-17] MEDS: amLODIPine BESYLATE 5 MG TABLET (FP) PO SCH (09:27)
[2018-02-17] MEDS: CITALOPRAM HYDROBROMIDE 10 MG TABLET (FP) PO SCH (09:28)
[2018-02-17] MEDS: ASPIRIN COATED 81 MG TABLET.EC PO SCH (09:28)
[2018-02-17] MEDS: LABETALOL HCL 200 MG TABLET (FP) PO SCH ×2 (09:29→21:21)
--- NOTE | 2018-02-17 10:04 | PN ---
Progress Note (short form) - Note Progress Note: cc: unresponsive s: no cp, palps, dizzy, sob +cigs tele: sr Current Medications Albuterol Sulfate (Ventolin 0.5% -) 1 amp NEB Q4H PRN PRN Reason: SHORT OF BREATH/WHEEZING Last Admin: 02/17/18 05:29 Dose: 1 amp Amlodipine Besylate (Norvasc -) 5 mg PO DAILY [facility] Last Admin: 02/17/18 09:27 Dose: 5 mg Aspirin (Ecotrin -) 81 mg PO DAILY [facility] Last Admin: 02/17/18 09:28 Dose: 81 mg Citalopram Hydrobromide (Celexa -) 10 mg PO DAILY [facility] Last Admin: 02/17/18 09:28 Dose: 10 mg Heparin Sodium (Porcine) (Heparin -) 5,000 unit SQ TID [facility] Last Admin: 02/17/18 05:27 Dose: 5,000 unit Labetalol HCl (Normodyne -) 300 mg PO BID [facility] Last Admin: 02/17/18 09:29 Dose: 300 mg Levetiracetam (Keppra -) 500 mg PO BID [facility] Last Admin: 02/17/18 09:27 Dose: 500 mg Multivitamins/Minerals (Theragran-M) 1 each PO DAILY [facility] Last Admin: 02/17/18 09:27 Dose: 1 each Ondansetron HCl (Zofran Injection) 4 mg IVPB Q6H PRN PRN Reason: NAUSEA Oxycodone HCl (Roxicodone -) 2.5 mg PO Q4H PRN PRN Reason: PAIN LEVEL 1-5 Oxycodone HCl (Roxicodone -) 10 mg PO Q4H PRN PRN Reason: PAIN LEVEL 6-10 Last Admin: 02/17/18 09:44 Dose: 10 mg Pantoprazole Sodium (Protonix -) 40 mg PO DAILY [facility] Last Admin: 02/17/18 09:27 Dose: 40 mg Sodium Bicarbonate (Sodium Bicarbonate -) 650 mg PO BID [facility] Last Admin: 02/17/18 09:27 Dose: 650 mg Vital Signs Period Temp Pulse Resp BP Sys/Gruber Pulse Ox Last 24 Hr 97.6 F-98.1 F 66-82 16-22 144-156/66-81 95-95 Constitutional: Yes: No Distress, Calm Eyes: Yes: Conjunctiva Clear Neck: Yes: Supple Respiratory: Yes: Regular, CTA Bilaterally Gastrointestinal: Yes: Normal Bowel Sounds, Soft Renal/: Yes: Kilpatrick Present Cardiovascular: Yes: Regular Rate and Rhythm JVD: No Heart Sounds: Yes: S1, S2 Edema: No Peripheral Pulses: 2+ Left Doralis Pedis, 2+ Right Dorsalis Pedis Neurological: Yes: aao3 Psychiatric: Yes: Alert no jaundice diaphoresis Assessment/Plan EK/23 sinus, nonspecific T wave changes. 02/12 sinus, TWI III, V1-V3 CXR: no acute process echo nl LV function EF >70%, mod TR, RV mildly dilated with borderline reduced function carotid ultrasound: moderate stenosis right carotid 62F h/o opioid dependency, back pain using fentanyl patch, anxiety, seizure disorder p/w unresponsiveness, trop elevated, overdose NSTEMI - echo normal LV function - noted to have bloody BM, blood on rectal exam per primary team, deferring heparin gtt and plavix - on aspirin 81 mg daily - deferring statin due to elevated LFTs - will need ischemic eval after acute issues resolved Tachycardia - episodes of SVT on monitor, brief--> started on labetolol, tele improved - rate controlled, dc tele HTN -amlodipine started, cont labetolol, improving -if remains elevated may uptitrate amlodipine QUINTEN - possible ATN from hypotension/sepsis - renal following, received lasix yesterday elevated LFTs - likely in setting of rhabdo, receiving IVF/lasix as above - GI consulted as well, dilated CBD, less likely due to biliary source - defer statin as above stroke - r occipital - on aspirin, holding statin unresponsiveness - likely in setting of overdose (fentanyl in mouth, benzo+ in urine), possible sepsis, stroke, seizure - neurology consulted, on keppra - on IV abx, IV fluids, ID following - lactate improving, mental status improving leukocytosis - IV abx per primary team
--- NOTE | 2018-02-17 10:41 | PN ---
Progress Note (short form) - Note Progress Note: awake less cough Vital Signs Period Temp Pulse Resp BP Sys/Gruber Pulse Ox Last 24 Hr 97.6 F-98.1 F 66-82 16-22 144-156/66-81 95-95 cor-rrr lungs decreased bs at bases abd soft,nt ext no edema +frazier CBC, BMP 02/17/18 06:48 02/17/18 06:48 Microbiology 02/11/18 19:50 Blood - Peripheral Venous Blood Culture - Final NO GROWTH AFTER 5 DAYS INCUBATION 02/11/18 19:50 Blood - Peripheral Venous Blood Culture - Final NO GROWTH AFTER 5 DAYS INCUBATION 02/16/18 06:00 Urine For Antigen Detection Legionella Antigen - Final 02/16/18 06:00 Urine For Antigen Detection Streptococcus pneumoniae Antigen (M - Final 02/13/18 11:20 Stool Salmonella/Shigella Culture - Final Yeast Like Organism 02/13/18 11:20 Stool Campylobacter Culture - Final NO GROWTH OF CAMPYLOBACTER SPECIES OBTAINED 02/13/18 11:20 Stool Yersinia Culture - Final NO GROWTH OF YERSINIA SPECIES OBTAINED 02/13/18 11:20 Stool Vibrio Culture - Final NO GROWTH OF VIBRIO SPECIES OBTAINED 02/13/18 11:20 Stool Escherichia coli 0157 Culture - Final NO GROWTH OF E COLI 0157 OBTAINED 02/13/18 11:20 Stool Gram Stain - Final 02/13/18 08:40 Urine - Urine Frazier Urine Culture - Final NO GROWTH OBTAINED 02/13/18 11:20 Stool Clostridium difficile Antigen (CHRISTINA) - Final 02/13/18 11:20 Stool Clostridium difficile Toxin Assay - Final 02/11/18 21:35 Urine - Urine - Catheterized Urine Culture - Final NO GROWTH OBTAINED a/p probable overdose/?cva NSTEMI ?ischemic colitis QUINTEN rahabdomyolysis leukocytosis-LLL pneumonia/with effusion- continue zosyn day #5, encourage incentive spirometry f/u cxray to evaluate effusion Problem List - Problems (1) Overdose Code(s): T50.901A - POISONING BY UNSP DRUG/MEDS/BIOL SUBST, ACCIDENTAL, INIT Qualifiers: Encounter type: initial encounter Injury intent: undetermined intent Qualified Code(s): T50.904A - Poisoning by unspecified drugs, medicaments and biological substances, undetermined, initial encounter (2) Transaminitis Code(s): R74.0 - NONSPEC ELEV OF LEVELS OF TRANSAMNS & LACTIC ACID DEHYDRGNSE (3) Ischemic colitis, enteritis, or enterocolitis Code(s): K55.9 - VASCULAR DISORDER OF INTESTINE, UNSPECIFIED (4) QUINTEN (acute kidney injury) Code(s): N17.9 - ACUTE KIDNEY FAILURE, UNSPECIFIED (5) Rhabdomyolysis Code(s): M62.82 - RHABDOMYOLYSIS (6) NSTEMI (non-ST elevated myocardial infarction) Code(s): I21.4 - NON-ST ELEVATION (NSTEMI) MYOCARDIAL INFARCTION
--- NOTE | 2018-02-17 11:12 | PN ---
Progress Note, Physician History of Present Illness: Pt seen and examined at bedside. She is awake and alert. She feels that her breathing is better. She is making urine. - Current Medication List Current Medications: Active Medications Albuterol Sulfate (Ventolin 0.5% -) 1 amp NEB Q4H PRN PRN Reason: SHORT OF BREATH/WHEEZING Last Admin: 02/17/18 05:29 Dose: 1 amp Amlodipine Besylate (Norvasc -) 5 mg PO DAILY [facility] Last Admin: 02/17/18 09:27 Dose: 5 mg Aspirin (Ecotrin -) 81 mg PO DAILY [facility] Last Admin: 02/17/18 09:28 Dose: 81 mg Citalopram Hydrobromide (Celexa -) 10 mg PO DAILY [facility] Last Admin: 02/17/18 09:28 Dose: 10 mg Heparin Sodium (Porcine) (Heparin -) 5,000 unit SQ TID [facility] Last Admin: 02/17/18 05:27 Dose: 5,000 unit Piperacillin Sod/Tazobactam (Sod 2.25 gm/ Dextrose) 50 mls @ 100 mls/hr IVPB Q8H-IV [facility]; Protocol Labetalol HCl (Normodyne -) 300 mg PO BID [facility] Last Admin: 02/17/18 09:29 Dose: 300 mg Levetiracetam (Keppra -) 500 mg PO BID [facility] Last Admin: 02/17/18 09:27 Dose: 500 mg Multivitamins/Minerals (Theragran-M) 1 each PO DAILY [facility] Last Admin: 02/17/18 09:27 Dose: 1 each Ondansetron HCl (Zofran Injection) 4 mg IVPB Q6H PRN PRN Reason: NAUSEA Oxycodone HCl (Roxicodone -) 2.5 mg PO Q4H PRN PRN Reason: PAIN LEVEL 1-5 Oxycodone HCl (Roxicodone -) 10 mg PO Q4H PRN PRN Reason: PAIN LEVEL 6-10 Last Admin: 02/17/18 09:44 Dose: 10 mg Pantoprazole Sodium (Protonix -) 40 mg PO DAILY [facility] Last Admin: 02/17/18 09:27 Dose: 40 mg Sodium Bicarbonate (Sodium Bicarbonate -) 650 mg PO BID [facility] Last Admin: 02/17/18 09:27 Dose: 650 mg - Objective Vital Signs: Vital Signs Temperature 98.1 F 02/17/18 08:21 Pulse Rate 81 02/17/18 08:21 Respiratory Rate 20 02/17/18 08:21 Blood Pressure 146/76 02/17/18 08:21 O2 Sat by Pulse Oximetry (%) 95 02/17/18 08:22 Constitutional: Yes: Calm Eyes: Yes: Conjunctiva Clear HENT: Yes: Atraumatic Cardiovascular: Yes: S1, S2 Respiratory: Yes: On Nasal O2 Gastrointestinal: Yes: Soft Genitourinary: Yes: Kilpatrick Present Musculoskeletal: Yes: Muscle Weakness Edema: Yes Edema: LLE: 1+, RLE: 1+ Neurological: Yes: Oriented Psychiatric: Yes: Oriented Labs: CBC, BMP 02/17/18 06:48 02/17/18 06:48 INR, PTT INR 1.13 (0.83-1.09) H 02/11/18 19:50 Problem List - Problems (1) QUINTEN (acute kidney injury) Code(s): N17.9 - ACUTE KIDNEY FAILURE, UNSPECIFIED (2) Elevated liver enzymes Code(s): R74.8 - ABNORMAL LEVELS OF OTHER SERUM ENZYMES (3) Rhabdomyolysis Code(s): M62.82 - RHABDOMYOLYSIS Assessment/Plan Current Medications Generic Name Dose Route Start Last Admin Trade Name Freq PRN Reason Stop Dose Admin Albuterol Sulfate 1 amp 02/14/18 19:23 02/17/18 05:29 Ventolin 0.5% - NEB 1 amp Q4H PRN Administration SHORT OF BREATH/WHEEZING Amlodipine Besylate 5 mg 02/16/18 11:30 02/17/18 09:27 Norvasc - PO 5 mg DAILY [facility] Administration Aspirin 81 mg 02/15/18 10:00 02/17/18 09:28 Ecotrin - PO 81 mg DAILY [facility] Administration Citalopram Hydrobromide 10 mg 02/15/18 10:00 02/17/18 09:28 Celexa - PO 10 mg DAILY [facility] Administration Heparin Sodium (Porcine) 5,000 unit 02/14/18 22:00 02/17/18 05:27 Heparin - SQ 5,000 unit TID [facility] Administration Piperacillin Sod/Tazobactam 50 mls @ 100 mls/hr 02/17/18 18:00 Sod 2.25 gm/ Dextrose IVPB Q8H-IV [facility] Protocol Labetalol HCl 300 mg 02/16/18 22:00 02/17/18 09:29 Normodyne - PO 300 mg BID [facility] Administration Levetiracetam 500 mg 02/16/18 22:00 02/17/18 09:27 Keppra - PO 500 mg BID [facility] Administration Multivitamins/Minerals 1 each 02/15/18 10:00 02/17/18 09:27 Theragran-M PO 1 each DAILY [facility] Administration Ondansetron HCl 4 mg 02/14/18 19:23 Zofran Injection IVPB Q6H PRN NAUSEA Oxycodone HCl 2.5 mg 02/14/18 19:23 Roxicodone - PO Q4H PRN PAIN LEVEL 1-5 Oxycodone HCl 10 mg 02/15/18 16:46 02/17/18 09:44 Roxicodone - PO 10 mg Q4H PRN Administration PAIN LEVEL 6-10 Pantoprazole Sodium 40 mg 02/15/18 10:00 02/17/18 09:27 Protonix - PO 40 mg DAILY [facility] Administration Sodium Bicarbonate 650 mg 02/16/18 15:36 02/17/18 09:27 Sodium Bicarbonate - PO 650 mg BID [facility] Administration Impression 1. QUINTEN 2. Rhabdo 3. acidosis 4. transaminitis 5. altered mental status 6. overdose - opioid 7. sepsis 8. hypotension Plan - renal workup is in progress - renal function is worse today however her urine input is markedly improved - discussed possibility of dialysis with pt at length - repeat labs in am - cont sodium bicarb, change to TID dosing - check spep - will give a PO dose of lasix today - cpk had improved - monitor LFTs Dr Macario
[2018-02-17 11:56] LABS: ANISOCYTOSIS 1+; MACROCYTOSIS 0; PLATELET ESTIMATE NORMAL
[2018-02-17 12:00] LABS: URINE APPEARANCE CLEAR; URINE BILIRUBIN NEGATIVE (<2.0 mg/dL); URINE COLOR STRAW; URINE GLUCOSE (UA) NEGATIVE (NEGATIVE); URINE KETONE NEGATIVE (NEGATIVE); URINE LEUK ESTERASE NEGATIVE (NEGATIVE); URINE NITRITE NEGATIVE (NEGATIVE); URINE PROTEIN NEGATIVE (NEGATIVE); URINE UROBILINOGEN NEGATIVE mg/dL (0.2-1.0)
[2018-02-17] MEDS ORDERED: FUROSEMIDE 40 MG TABLET (FP) PO ONE (12:00)
[2018-02-17 12:07] LABS: URINE BACTERIA RARE /hpf (NONE SEEN); URINE MUCUS RARE
--- NOTE | 2018-02-17 13:00 | PN ---
Physical Exam: SUBJECTIVE: Patient seen and examined at bedside. She admits she slept well for last night, and admits significant improvement in her right lower extremity and back pain. Also notes significant improvement in her upper extremity strength. Admits her cough is diminishing, and breathing is also improved. OBJECTIVE: Vital Signs Period Temp Pulse Resp BP Sys/Gruber Pulse Ox Last 24 Hr 97.6 F-98.1 F 66-82 16-22 144-156/66-81 95-95 GENERAL: The patient is awake, alert, and fully oriented, in no acute distress. HEAD: Normal with no signs of trauma. EYES: PERRL, extraocular movements intact, sclera anicteric, conjunctiva clear. ENT: Oropharynx clear without exudates, moist mucous membranes. NECK: Supple without lymphadenopathy LUNGS: No wheezing and faint crackles auscultated B/L lower lung lobes. Improved from yesterday exam. HEART: Regular rate and rhythm, S1, S2 without murmur, rub or gallop. ABDOMEN: Soft, nontender, nondistended, normoactive bowel sounds, no guarding, no rebound, no hepatosplenomegaly. EXTREMITIES: 2+ pulses, warm, well-perfused. NEUROLOGICAL: Cranial nerves II through XII grossly intact. Normal speech. Strength RUE abduction 4/5, flexion 5/5, extension 5/5. LUE abduction 5/5, flexion 5/5, extension 5/5. Right hip flexion 5/5, knee flexion and extension 5/ 5. Left hip flexion 5/5, knee flexion and extension 5/5. Plantarflexion and dorsiflexion 5/5/ B/L PSYCH: Appropriate mood and affect upon exam today SKIN: Warm, dry, normal turgor. Laboratory Results - last 24 hr 02/16/18 02/17/18 02/17/18 05:30 06:48 06:48 WBC 15.6 H RBC 3.19 L Hgb 10.1 L Hct 31.0 L MCV 97.0 H MCH 31.5 MCHC 32.5 RDW 15.5 Plt Count 163 MPV 9.1 Absolute Neuts (auto) 12.4 H Neutrophils % 79.6 Neutrophils % (Manual) 77.0 80.6 Band Neutrophils % 0.0 0.0 Lymphocytes % 7.5 L Lymphocytes % (Manual) 11.0 8.7 D Monocytes % 11.1 H Monocytes % (Manual) 10 9 Eosinophils % 1.4 D Eosinophils % (Manual) 1.0 1.0 Basophils % 0.4 Basophils % (Manual) 0.0 1.0 D Myelocytes % (Man) 1 0 D Promyelocytes % (Man) 0 0 Blast Cells % (Manual) 0 0 Nucleated RBC % 0 Metamyelocytes 0 0 Hypochromia 0 0 Platelet Estimate Normal Normal Polychromasia 0 1+ Poikilocytosis 0 0 Anisocytosis 1+ 1+ Microcytosis 1+ Macrocytosis 1+ 0 Sodium 146 H Potassium 3.9 Chloride 116 H Carbon Dioxide 15 L Anion Gap 15 BUN 62 H Creatinine 5.7 H Creat Clearance w eGFR 7.51 Random Glucose 95 Calcium 7.8 L Urine Color Urine Appearance Urine pH Ur Specific [place] Urine Protein Urine Glucose (UA) Urine Ketones Urine Blood Urine Nitrite Urine Bilirubin Urine Urobilinogen Ur Leukocyte Esterase Urine WBC (Auto) Urine RBC (Auto) Urine Bacteria Urine Mucus 02/17/18 10:44 WBC RBC Hgb Hct MCV MCH MCHC RDW Plt Count MPV Absolute Neuts (auto) Neutrophils % Neutrophils % (Manual) Band Neutrophils % Lymphocytes % Lymphocytes % (Manual) Monocytes % Monocytes % (Manual) Eosinophils % Eosinophils % (Manual) Basophils % Basophils % (Manual) Myelocytes % (Man) Promyelocytes % (Man) Blast Cells % (Manual) Nucleated RBC % Metamyelocytes Hypochromia Platelet Estimate Polychromasia Poikilocytosis Anisocytosis Microcytosis Macrocytosis Sodium Potassium Chloride Carbon Dioxide Anion Gap BUN Creatinine Creat Clearance w eGFR Random Glucose Calcium Urine Color Straw// Urine Appearance Clear Urine pH 5.0 Ur Specific [place] 1.008 Urine Protein Negative Urine Glucose (UA) Negative Urine Ketones Negative Urine Blood 1+ H Urine Nitrite Negative Urine Bilirubin Negative Urine Urobilinogen Negative Ur Leukocyte Esterase Negative Urine WBC (Auto) 3 Urine RBC (Auto) 1 Urine Bacteria Rare Urine Mucus Rare Active Medications Generic Name Dose Route Start Last Admin Trade Name Freq PRN Reason Stop Dose Admin Albuterol Sulfate 1 amp 02/14/18 19:23 02/17/18 05:29 Ventolin 0.5% - NEB 1 amp Q4H PRN Administration SHORT OF BREATH/WHEEZING Amlodipine Besylate 5 mg 02/16/18 11:30 02/17/18 09:27 Norvasc - PO 5 mg DAILY [facility]ON Administration Aspirin 81 mg 02/15/18 10:00 02/17/18 09:28 Ecotrin - PO 81 mg DAILY [facility] Administration Citalopram Hydrobromide 10 mg 02/15/18 10:00 02/17/18 09:28 Celexa - PO 10 mg DAILY [facility] Administration Heparin Sodium (Porcine) 5,000 unit 02/14/18 22:00 02/17/18 05:27 Heparin - SQ 5,000 unit TID [facility] Administration Piperacillin Sod/Tazobactam 50 mls @ 100 mls/hr 02/17/18 18:00 Sod 2.25 gm/ Dextrose IVPB Q8H-IV [facility] Protocol Labetalol HCl 300 mg 02/16/18 22:00 02/17/18 09:29 Normodyne - PO 300 mg BID [facility] Administration Levetiracetam 500 mg 02/16/18 22:00 02/17/18 09:27 Keppra - PO 500 mg BID BR[facility] Administration Multivitamins/Minerals 1 each 02/15/18 10:00 02/17/18 09:27 Theragran-M PO 1 each DAILY [facility] Administration Ondansetron HCl 4 mg 02/14/18 19:23 Zofran Injection IVPB Q6H PRN NAUSEA Oxycodone HCl 2.5 mg 02/14/18 19:23 Roxicodone - PO Q4H PRN PAIN LEVEL 1-5 Oxycodone HCl 10 mg 02/15/18 16:46 02/17/18 09:44 Roxicodone - PO 10 mg Q4H PRN Administration PAIN LEVEL 6-10 Pantoprazole Sodium 40 mg 02/15/18 10:00 02/17/18 09:27 Protonix - PO 40 mg DAILY [facility] Administration Sodium Bicarbonate 650 mg 02/16/18 15:36 02/17/18 09:27 Sodium Bicarbonate - PO 650 mg BID BR[facility]ON Administration ASSESSMENT/PLAN: 62 y/o female with opiod dependence, chronic pain, anxiety, depression, and seizure disorder presented unresponsive with a fentanyl patch in her mouth, admitted for unresponsiveness. Unresponsiveness -Likely secondary to opiod overdose as she was found with Fentanyl patch in her mouth. -Significant improvement in strength of right upper extremity and right lower extremities. -MRI showed right sided occipital stroke, which does not correlate with her physical exam. -MRA neck showed mild atherosclerotic narrowing at origin of left internal carotid artery. Negative for significant stenosis B/L. -Keppra 500 IV BID switched to Keppra 500 PO BID -CXR yesterday showed left pleural effusion, left lower lobe pneumonia with compressive atelectasis. Will F/U CXR. -(Dr. Colon) Infectious Disease consult appreciated: Continue (day 6) Zosyn 2.25mg IVPB Q8H, and will follow up CXR. -UA showed 1+ blood, 3 WBC, 1RBC, rare bacteria. -F/U urine cultures Diarrhea -Stool cultures grew yeast like organism in Salmonella/ Shigella culture. -No growth in Campylobacter, Yersenia, Vibrio, E.coli 0157. -C. diff cultures negative -Immodium 2mg PO Q8H Anxiety -Patient has history of anxiety -(Dr. Garza) Psychiatric consult appreciated: Will continue Celexa 10mg PO QD. Patient is not suicidal at this time as per psych. QUINTEN -Likely due to rhabdomyolisis which is resolving. -(Dr. Macario) Nephrology consult appreciated: Fluids discontinued. Patient to consider possibility of HD if renal function does not improve. -Sodium Bicarb 650mg PO changed from BID to TID per nephrology -Diuresis with Lasix 40mg PO today with network relations consultant -Will trend CPK (289 yesterday) -Will F/U C-AnCA Antinuclear AB, Anti GBM AB, DS DNA AB NSTEMI- -Likely d/t demand ischemia -(Dr. Choi) Cardiology consult appreciated: Continue aspirin 81 -No statins d/t increased LFTs -Echo showed normal LV function with EF >70% HTN -Labetalol 300mg BID -Begin Norvasc 5gm Right lower extremity pain -Oxycontin increased to 10mg -F/U pain management consult Transaminitis: -MRCP showed distended gallbladder, dialted intrahepatic duct, dilated common bile duct, and ?stricture -(Dr. Allred/ Shonda) GI consult appreciated: Patient will benefit from UES as outpatient. -Hepatitis A,B,C serology negative Prophylaxis -Heparin 5000units TID -Protonix 40mg PO FEN -No IV fluids -Will follow BMP -Regular diet Disposition: Continue monitoring in medical-surgical floor Visit type - Emergency Visit Emergency Visit: No - New Patient This patient is new to me today: No - Critical Care Critical Care patient: No - Discharge Referral Referred to [facility] Med P.C.: No
[2018-02-17] MEDS: LOPERAMIDE HCL 2 MG CAPSULE PO PRN (17:58)
--- NOTE | 2018-02-17 18:20 | CON.PSY ---
Psychiatry Consult Chief Complaint: 62 year old female with a history of SEizure Disordetr and chronic pain admitted after ingesting more apinh meds. no history of Psych Illness or attemopted suicides inj the past> patient5 denies any suicidalo ideas or plans. Symptoms: reports: Anxiety - Previous Psychiatric Treatment Outpatient: None Inpatient: None - Previous Substance Abuse Treatment Outpatient: None Inpatient: 2 or more prior admissions - Current Medications Current Medications: Active Medications Albuterol Sulfate (Ventolin 0.5% -) 1 amp NEB Q4H PRN PRN Reason: SHORT OF BREATH/WHEEZING Last Admin: 02/17/18 05:29 Dose: 1 amp Amlodipine Besylate (Norvasc -) 5 mg PO DAILY [facility] Last Admin: 02/17/18 09:27 Dose: 5 mg Aspirin (Ecotrin -) 81 mg PO DAILY [facility] Last Admin: 02/17/18 09:28 Dose: 81 mg Citalopram Hydrobromide (Celexa -) 10 mg PO DAILY [facility] Last Admin: 02/17/18 09:28 Dose: 10 mg Heparin Sodium (Porcine) (Heparin -) 5,000 unit SQ TID [facility] Last Admin: 02/17/18 13:01 Dose: 5,000 unit Piperacillin Sod/Tazobactam (Sod 2.25 gm/ Dextrose) 50 mls @ 100 mls/hr IVPB Q8H-IV [facility]; Protocol Last Admin: 02/17/18 17:58 Dose: 100 mls/hr Labetalol HCl (Normodyne -) 300 mg PO BID [facility] Last Admin: 02/17/18 09:29 Dose: 300 mg Levetiracetam (Keppra -) 500 mg PO BID [facility] Last Admin: 02/17/18 09:27 Dose: 500 mg Loperamide HCl (Imodium -) 2 mg PO Q8H PRN PRN Reason: DIARRHEA Last Admin: 02/17/18 17:58 Dose: 2 mg Multivitamins/Minerals (Theragran-M) 1 each PO DAILY [facility] Last Admin: 02/17/18 09:27 Dose: 1 each Ondansetron HCl (Zofran Injection) 4 mg IVPB Q6H PRN PRN Reason: NAUSEA Oxycodone HCl (Roxicodone -) 2.5 mg PO Q4H PRN PRN Reason: PAIN LEVEL 1-5 Oxycodone HCl (Roxicodone -) 10 mg PO Q4H PRN PRN Reason: PAIN LEVEL 6-10 Last Admin: 02/17/18 18:04 Dose: 10 mg Pantoprazole Sodium (Protonix -) 40 mg PO DAILY [facility] Last Admin: 02/17/18 09:27 Dose: 40 mg Sodium Bicarbonate (Sodium Bicarbonate -) 650 mg PO TID [facility] Last Admin: 02/17/18 15:45 Dose: 650 mg - Allergies Allergies: Allergies Allergy/AdvReac Type Severity Reaction Status Date / Time lactose AdvReac Unknown Verified 02/11/18 21:25 - Current Living Status Usual Living Arrangement: With Child - Current Mental Status Evaluation Appearance: Well Groomed Attitude: Cooperative - Affect Affect: Constrictive Appropriateness: Appropriate to Content - Mood Mood: Angry - Speech/Language Expressive: Coherent - Psychomotor Activity Psychomotor Activity: Slowed - Thought Process Thought Process: Intact - Thought Content Hallucinations: Absent Delusions: Absent - Self Perception Self Perception: No Impairment - Cognition Attention: Alert Orientation: Time Memory, Immediate Recall: Intact Memory, Short Term: 3/3 Memory, Remote with Promptin/3 - Concentration Serial Sevens Intact: Yes Simple Calculations Intact: Yes - Insight Insight: Intact - Impulse Control Impulse Control: Minimally Impaired - Suicidal Ideation Suicidal Ideation: No - Homicidal Ideation Homicidal Ideation: No Assessment/Plan 1) Continue with Celexa 10mg po odf. 2) Patient is not suicidal at this time or before. 3) Painj meds abuse.
[2018-02-17] MEDS ORDERED: ONDANSETRON 4 MG/2 ML VIAL IVPB PRN (20:00)
[2018-02-18] MEDS ORDERED: DEXTROSE 5%-WATER - 50 ML IVPB ONE ×2 (02:12→11:02)
[2018-02-18] MEDS ORDERED: PIPERACILLIN/TAZOBACTAM 2.25 GM VIAL IVPB ONE ×3 (02:12→20:18)
[2018-02-18] MEDS: PIPERACILLIN/TAZOB 2.25 GM 2.25 GM in DEXTROSE 5%-WATER - 50 ML IVPB SCH ×3 (03:07→19:00)
[2018-02-18] MEDS: oxyCODONE HCL 5 MG TABLET PO PRN ×4 (03:09→21:22)
[2018-02-18] MEDS: HEPARIN NA (PORCINE) 5,000 UNITS/ML 1ML VIAL SQ SCH ×3 (06:28→21:21)
[2018-02-18] MEDS: SODIUM BICARBONATE 650 MG TABLET PO SCH ×3 (06:28→21:21)
[2018-02-18 07:09] LABS: BASO % 0.8 % (0-2.0); HEMATOCRIT 29.6 % (32.4-45.2); HEMOGLOBIN 9.7 GM/dL (10.7-15.3); LYMPH % 11.4 % (8-40); MCH 31.4 pg (25.7-33.7); MCHC 32.7 g/dl (32.0-36.0); MEAN CELL VOLUME 96.1 fl (80-96); MEAN PLT VOLUME 9.2 fl (7.5-11.1); MONO % 12.8 % (3.8-10.2); PLATELET COUNT 179 K/MM3 (134-434); RBC 3.08 M/mm3 (3.60-5.2); RDW 15.8 % (11.6-15.6); WHITE BLOOD COUNT 12.8 K/mm3 (4.0-10.0)
--- NOTE | 2018-02-18 07:49 | PN ---
Progress Note (short form) - Note Progress Note: I was consulted for a pain management consult. ISTOP reviewed which shows Dr Chris Reese as her treating pain management doctor who has privileges at the hospital. For continuity of care, please reach out to him.
[2018-02-18 08:22] LABS: CHLORIDE 113 mmol/L (98-107); POTASSIUM 3.5 mmol/L (3.5-5.1); SODIUM 144 mmol/L (136-145)
--- NOTE | 2018-02-18 08:29 | PN ---
Teaching Attending Note Name of Resident: Melvin Dutton ATTENDING PHYSICIAN STATEMENT I saw and evaluated the patient. I reviewed the resident's note and discussed the case with the resident. I agree with the resident's findings and plan as documented. SUBJECTIVE: Patient is improving but continues to c/o having back pain OBJECTIVE: Vital Signs Temperature 99.2 F 02/18/18 04:00 Pulse Rate 70 02/18/18 04:00 Respiratory Rate 16 02/18/18 04:00 Blood Pressure 143/72 02/18/18 04:00 O2 Sat by Pulse Oximetry (%) 94 L 02/17/18 21:00 CBCD WBC 12.8 K/mm3 (4.0-10.0) H 02/18/18 06:00 RBC 3.08 M/mm3 (3.60-5.2) L 02/18/18 06:00 Hgb 9.7 GM/dL (10.7-15.3) L 02/18/18 06:00 Hct 29.6 % (32.4-45.2) L 02/18/18 06:00 MCV 96.1 fl (80-96) H 02/18/18 06:00 MCHC 32.7 g/dl (32.0-36.0) 02/18/18 06:00 RDW 15.8 % (11.6-15.6) H 02/18/18 06:00 Plt Count 179 K/MM3 (134-434) 02/18/18 06:00 MPV 9.2 fl (7.5-11.1) 02/18/18 06:00 CMP Sodium 146 mmol/L (136-145) H 02/17/18 06:48 Potassium 3.9 mmol/L (3.5-5.1) 02/17/18 06:48 Chloride 116 mmol/L (98-107) H 02/17/18 06:48 Carbon Dioxide 15 mmol/L (21-32) L 02/17/18 06:48 Anion Gap 15 MMOL/L (8-16) 02/17/18 06:48 BUN 62 mg/dL (7-18) H 02/17/18 06:48 Creatinine 5.7 mg/dL (0.55-1.02) H 02/17/18 06:48 Creat Clearance w eGFR 7.51 (>60) 02/17/18 06:48 Random Glucose 95 mg/dL (74-106) 02/17/18 06:48 Calcium 7.8 mg/dL (8.5-10.1) L 02/17/18 06:48 Total Bilirubin 0.6 mg/dL (0.2-1.0) 02/16/18 05:30 AST 99 U/L (15-37) H 02/16/18 05:30 ALT 392 U/L (12-78) H 02/16/18 05:30 Alkaline Phosphatase 89 U/L (45-117) 02/16/18 05:30 Total Protein 5.0 g/dl (6.4-8.2) L 02/16/18 05:30 Albumin 2.2 g/dl (3.4-5.0) L 02/16/18 05:30 CARDIAC ENZYMES Creatine Kinase 289 IU/L (26-192) H 02/16/18 05:30 Troponin I 5.73 ng/ml (0.00-0.05) H* 02/13/18 05:30 Current Medications Generic Name Dose Route Start Last Admin Trade Name Freq PRN Reason Stop Dose Admin Albuterol Sulfate 1 amp 02/17/18 20:00 Ventolin 0.5% - NEB Q4H PRN SHORT OF BREATH/WHEEZING Amlodipine Besylate 5 mg 02/18/18 10:00 Norvasc - PO DAILY [facility] Aspirin 81 mg 02/18/18 10:00 Ecotrin - PO DAILY [facility] Citalopram Hydrobromide 10 mg 02/18/18 10:00 Celexa - PO DAILY [facility] Heparin Sodium (Porcine) 5,000 unit 02/17/18 22:00 02/18/18 06:28 Heparin - SQ 5,000 unit TID [facility] Administration Piperacillin Sod/Tazobactam 50 mls @ 100 mls/hr 02/17/18 18:00 02/18/18 03:07 Sod 2.25 gm/ Dextrose IVPB 100 mls/hr Q8H-IV [facility] Administration Protocol Labetalol HCl 300 mg 02/17/18 22:00 02/17/18 21:21 Normodyne - PO 300 mg BID [facility] Administration Levetiracetam 500 mg 02/17/18 22:00 02/17/18 21:21 Keppra - PO 500 mg BID [facility] Administration Loperamide HCl 2 mg 02/17/18 16:07 02/17/18 17:58 Imodium - PO 2 mg Q8H PRN Administration DIARRHEA Multivitamins/Minerals 1 each 02/18/18 10:00 Theragran-M PO DAILY [facility] Ondansetron HCl 4 mg 02/17/18 20:00 Zofran Injection IVPB Q6H PRN NAUSEA Oxycodone HCl 10 mg 02/17/18 20:00 02/18/18 06:54 Roxicodone - PO 10 mg Q4H PRN Administration PAIN LEVEL 6-10 Pantoprazole Sodium 40 mg 02/18/18 10:00 Protonix - PO DAILY [facility] Sodium Bicarbonate 650 mg 02/17/18 15:30 02/18/18 06:28 Sodium Bicarbonate - PO 650 mg TID [facility] Administration Home Medications Medication Instructions Recorded Citalopram Hydrobromide [Celexa -] 10 mg PO DAILY #14 tablet 06/09/17 Gabapentin 800 mg PO TID 02/12/18 oxyCODONE HCL [Roxicodone -] 10 mg PO Q6H PRN MDD 40 02/12/18 Microbiology 02/11/18 19:50 Blood - Peripheral Venous Blood Culture - Final NO GROWTH AFTER 5 DAYS INCUBATION 02/11/18 19:50 Blood - Peripheral Venous Blood Culture - Final NO GROWTH AFTER 5 DAYS INCUBATION 02/16/18 06:00 Urine For Antigen Detection Legionella Antigen - Final 02/16/18 06:00 Urine For Antigen Detection Streptococcus pneumoniae Antigen (M - Final 02/13/18 11:20 Stool Salmonella/Shigella Culture - Final Yeast Like Organism 02/13/18 11:20 Stool Campylobacter Culture - Final NO GROWTH OF CAMPYLOBACTER SPECIES OBTAINED 02/13/18 11:20 Stool Yersinia Culture - Final NO GROWTH OF YERSINIA SPECIES OBTAINED 02/13/18 11:20 Stool Vibrio Culture - Final NO GROWTH OF VIBRIO SPECIES OBTAINED 02/13/18 11:20 Stool Escherichia coli 0157 Culture - Final NO GROWTH OF E COLI 0157 OBTAINED 02/13/18 11:20 Stool Gram Stain - Final 02/13/18 08:40 Urine - Urine Kilpatrick Urine Culture - Final NO GROWTH OBTAINED 02/13/18 11:20 Stool Clostridium difficile Antigen (CHRISTINA) - Final 02/13/18 11:20 Stool Clostridium difficile Toxin Assay - Final 02/11/18 21:35 Urine - Urine - Catheterized Urine Culture - Final NO GROWTH OBTAINED PE:per resident's note assessment/plan: Patient is a 62yo female with PMHx of chronic opioids use, possible seizure disorder due to opioids withdrawel, anxiety, depression and panic attacks who was brought in to ED since was found to be unresponsive. # S/p of Opioid Overdose was found to be unresponsive resolved , patient is awake and alert # Right occipital stroke : on ASA, can't give statin due to having rhabdo who presented with RF, MRA of neck with no significant stenosis #Seizure disorder on Keppra continue # HTN: On labetalol and Norvasc continue # QUINTEN: Possible ATN from transient hypotension /sepsis/Rhabdo . UOP improved . off IVF due to volume overload , further management per nephro. lasix as needed per nephro # Rhabdomyolysis: CPK improved , can't give statins due to Rhabdo. # acute hypoxic resp failure most likely due to opoiod OD # Transaminitis :possible stricture on MRCP. LFTS improved. Gi follow up as out pt # s/p Sepsis : unclear source.. blood cx and stool cx neg. On zosyn , no growth so far # S/p Normal AG Metabolic acidosis : likely due renal failure and diarrhea. # NSTEMI: possible due to demand ischemia on ASA, can't give statins due to renal failure . # Rectal bleed : ischemic vs internal hemorrhoids. resolved . hemoglobin stable. # chronic back pain , oxy at increased dose. will not resume Fentanyl patch . Pain management consult. DVT Px: heparin
[2018-02-18 08:45] LABS: ALK PHOS 72 U/L (45-117); ANION GAP 15 MMOL/L (8-16); BILIRUBIN,TOTAL 0.7 mg/dL (0.2-1.0); BLOOD UREA NITROGEN 61 mg/dL (7-18); CALCIUM 7.7 mg/dL (8.5-10.1); CO2 16 mmol/L (21-32); CREATININE 5.9 mg/dL (0.55-1.02); GLUCOSE,RANDOM 110 mg/dL (74-106); SGOT/AST 34 U/L (15-37); SGPT/ALT 185 U/L (12-78)
[2018-02-18] MEDS: amLODIPine BESYLATE 5 MG TABLET (FP) PO SCH (11:09)
[2018-02-18] MEDS: levETIRAcetam 500 MG TABLET (FP) PO SCH ×2 (11:09→21:21)
[2018-02-18] MEDS: CITALOPRAM HYDROBROMIDE 10 MG TABLET (FP) PO SCH (11:09)
[2018-02-18] MEDS: LABETALOL HCL 200 MG TABLET (FP) PO SCH ×2 (11:09→21:21)
[2018-02-18] MEDS: ASPIRIN COATED 81 MG TABLET.EC PO SCH (11:10)
[2018-02-18] MEDS: MULTIVITAMINS THER W-MINERALS COMBO TABLET (FP) PO SCH (11:10)
[2018-02-18] MEDS: PANTOPRAZOLE 40 MG TABLET (FP) PO SCH (11:10)
--- NOTE | 2018-02-18 11:42 | PN ---
Progress Note, PHOTOGRAPH MOUNTER - Note Progress Note: Selected Entries 02/14/18 02/14/18 02/14/18 02:00 06:00 08:00 Breakfast 25% Lunch Temperature 98.4 F 98.6 F 02/14/18 02/14/18 02/14/18 10:00 14:00 15:28 Breakfast Lunch 25% Temperature 98.2 F 98.4 F 02/14/18 02/15/18 02/15/18 22:00 02:00 06:00 Breakfast Lunch Temperature 98 F 98.4 F 98.2 F 02/15/18 02/15/18 02/15/18 08:00 09:43 10:00 Breakfast 25% Lunch 25% Temperature 98.1 F 98.2 F Laboratory Tests 02/12/18 02/13/18 02/14/18 05:30 05:30 05:30 WBC 14.9 H 13.8 H 16.2 H 02/15/18 05:30 WBC 16.5 H Selected Entries 02/16/18 02/16/18 02/16/18 10:22 14:00 21:21 Breakfast 25% Lunch 25% Supper 25% Temperature 02/17/18 02/17/18 02/17/18 05:00 08:21 10:00 Breakfast 50% Lunch Supper Temperature 98.1 F 98.1 F 02/17/18 02/17/18 02/17/18 14:00 17:00 20:25 Breakfast 25% Lunch Supper Temperature 98.0 F 97.4 F L 98.8 F 02/18/18 02/18/18 04:00 08:00 Breakfast Lunch Supper Temperature 99.2 F 98.6 F Pt upgraded 02/14 to reg diet. Poor appetite, eating her cookies and soda. Denies difficulty chewing. Edentulous. Speech now precise. CXR noted 02/17 with worsening.
[2018-02-18 11:49] LABS: ANISOCYTOSIS 1+; MACROCYTOSIS 1+; PLATELET ESTIMATE NORMAL
[2018-02-18 12:10] VITALS: BMI 27.9
--- NOTE | 2018-02-18 16:05 | PN ---
Physical Exam: SUBJECTIVE: Patient seen and examined at bedside. She admits she slept well last night, and admits her pper extremity strength and sensation is returned to baseline. Complains of productive cough with clear sputum, and admits her breathing is also improved. OBJECTIVE: Vital Signs Period Temp Pulse Resp BP Sys/Gruber Pulse Ox Last 24 Hr 97.4 F-99.2 F 68-73 16-20 133-150/69-79 94 GENERAL: The patient is awake, alert, and fully oriented, in no acute distress. HEAD: Normal with no signs of trauma. EYES: PERRL, extraocular movements intact, sclera anicteric, conjunctiva clear. ENT: Oropharynx clear without exudates, moist mucous membranes. NECK: Supple without lymphadenopathy LUNGS: No wheezing and faint crackles auscultated B/L lower lung lobes. Improved from yesterday exam. HEART: Regular rate and rhythm, S1, S2 without murmur, rub or gallop. ABDOMEN: Soft, nontender, nondistended, normoactive bowel sounds, no guarding, no rebound, no hepatosplenomegaly. EXTREMITIES: 2+ pulses, warm, well-perfused. NEUROLOGICAL: Cranial nerves II through XII grossly intact. Normal speech. Strength RUE abduction 4/5, flexion 5/5, extension 5/5. LUE abduction 5/5, flexion 5/5, extension 5/5. Right hip flexion 5/5, knee flexion and extension 5/ 5. Left hip flexion 5/5, knee flexion and extension 5/5. Plantarflexion and dorsiflexion 5/5/ B/L PSYCH: Appropriate mood and affect upon exam today SKIN: Warm, dry, normal turgor. Laboratory Results - last 24 hr 02/16/18 02/18/18 02/18/18 16:00 06:00 06:00 WBC 12.8 H RBC 3.08 L Hgb 9.7 L Hct 29.6 L MCV 96.1 H MCH 31.4 MCHC 32.7 RDW 15.8 H Plt Count 179 MPV 9.2 Absolute Neuts (auto) 9.1 H Neutrophils % 71.0 Neutrophils % (Manual) 70.0 Band Neutrophils % 0.0 Lymphocytes % 11.4 D Lymphocytes % (Manual) 12.0 D Monocytes % 12.8 H Monocytes % (Manual) 10 Eosinophils % 4.0 D Eosinophils % (Manual) 7.0 H D Basophils % 0.8 Basophils % (Manual) 0.0 Myelocytes % (Man) 1 D Promyelocytes % (Man) 0 Blast Cells % (Manual) 0 Nucleated RBC % 0 Metamyelocytes 0 Hypochromia 0 Platelet Estimate Normal Polychromasia 0 Poikilocytosis 0 Anisocytosis 1+ Microcytosis 0 Macrocytosis 1+ Sodium 144 Potassium 3.5 Chloride 113 H Carbon Dioxide 16 L Anion Gap 15 BUN 61 H Creatinine 5.9 H Creat Clearance w eGFR 7.22 Random Glucose 110 H Calcium 7.7 L Total Bilirubin 0.7 AST 34 ALT 185 H Alkaline Phosphatase 72 D Total Protein 5.0 L Albumin 2.0 L Double Strand DNA Ab <1 Active Medications Generic Name Dose Route Start Last Admin Trade Name Freq PRN Reason Stop Dose Admin Albuterol Sulfate 1 amp 02/17/18 20:00 Ventolin 0.5% - NEB Q4H PRN SHORT OF BREATH/WHEEZING Amlodipine Besylate 5 mg 02/18/18 10:00 02/18/18 11:09 Norvasc - PO 5 mg DAILY BR[facility]ON Administration Aspirin 81 mg 02/18/18 10:00 02/18/18 11:10 Ecotrin - PO 81 mg DAILY [facility] Administration Citalopram Hydrobromide 10 mg 02/18/18 10:00 02/18/18 11:09 Celexa - PO 10 mg DAILY [facility] Administration Heparin Sodium (Porcine) 5,000 unit 02/17/18 22:00 02/18/18 14:42 Heparin - SQ 5,000 unit TID [facility] Administration Piperacillin Sod/Tazobactam 50 mls @ 100 mls/hr 02/17/18 18:00 02/18/18 11:08 Sod 2.25 gm/ Dextrose IVPB 100 mls/hr Q8H-IV [facility] Administration Protocol Labetalol HCl 300 mg 02/17/18 22:00 02/18/18 11:09 Normodyne - PO 300 mg BID [facility] Administration Levetiracetam 500 mg 02/17/18 22:00 02/18/18 11:09 Keppra - PO 500 mg BID [facility] Administration Loperamide HCl 2 mg 02/17/18 16:07 02/17/18 17:58 Imodium - PO 2 mg Q8H PRN Administration DIARRHEA Multivitamins/Minerals 1 each 02/18/18 10:00 02/18/18 11:10 Theragran-M PO 1 each DAILY [facility] Administration Ondansetron HCl 4 mg 02/17/18 20:00 Zofran Injection IVPB Q6H PRN NAUSEA Oxycodone HCl 10 mg 02/17/18 20:00 02/18/18 14:51 Roxicodone - PO 10 mg Q4H PRN Administration PAIN LEVEL 6-10 Pantoprazole Sodium 40 mg 02/18/18 10:00 02/18/18 11:10 Protonix - PO 40 mg DAILY [facility] Administration Sodium Bicarbonate 650 mg 02/17/18 15:30 02/18/18 14:43 Sodium Bicarbonate - PO 650 mg TID BR[facility]ON Administration ASSESSMENT/PLAN: 62 y/o female with opiod dependence, chronic pain, anxiety, depression, and seizure disorder presented unresponsive with a fentanyl patch in her mouth, admitted for unresponsiveness. Unresponsiveness -Likely secondary to opiod overdose as she was found with Fentanyl patch in her mouth. -Significant improvement in strength of right upper extremity and right lower extremities. As per patient returning to baseline -MRI showed right sided occipital stroke, which does not correlate with her physical exam. -MRA neck showed mild atherosclerotic narrowing at origin of left internal carotid artery. Negative for significant stenosis B/L. -Keppra 500 PO BID -CXR showed left pleural effusion, left lower lobe pneumonia with compressive atelectasis. -Doppler of lower extremeties shows no evidence of DVT B/L lower extremities. -(Dr. Colon) Infectious Disease consult appreciated: Continue (day 7) Zosyn 2.25mg IVPB Q8H -UA showed 1+ blood, 3 WBC, 1RBC, rare bacteria. -Urine cultures pending preliminary reading Diarrhea -Stool cultures grew yeast like organism in Salmonella/ Shigella culture. -No growth in Campylobacter, Yersenia, Vibrio, E.coli 0157. -C. diff cultures negative -Immodium 2mg PO Q8H Anxiety -Patient has history of anxiety -(Dr. Garza) Psychiatric consult appreciated: Will continue Celexa 10mg PO QD. Patient is not suicidal at this time as per psych. QUINTEN -Likely due to rhabdomyolisis which is resolving. -(Dr. Macario) Nephrology consult appreciated: Fluids discontinued. Patient to consider possibility of HD and renal biopsy if renal function does not improve. 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 Choi) Cardiology consult appreciated: Continue aspirin 81 -No statins d/t increased LFTs -Echo showed normal LV function with EF >70% HTN -Labetalol 300mg BID -Begin Norvasc 5gm Right lower extremity pain -Oxycontin increased to 10mg -F/U pain management consult (Dr. Chris Reese) Transaminitis: -MRCP showed distended gallbladder, dialted intrahepatic duct, dilated common bile duct, and ?stricture -(Dr. Allred/ Shonda) GI consult appreciated: Patient will benefit from UES as outpatient. -Hepatitis A,B,C serology negative Prophylaxis -Heparin 5000units TID -Protonix 40mg PO FEN -No IV fluids -Will follow BMP -Regular diet Disposition: Continue monitoring in medical-surgical floor Visit type - Emergency Visit Emergency Visit: No - New Patient This patient is new to me today: No - Critical Care Critical Care patient: No - Discharge Referral Referred to [facility] Med P.C.: No
--- NOTE | 2018-02-18 16:07 | PN ---
Progress Note, Physician History of Present Illness: Pt seen and examined at bedside. She is awake and alert. She denies shortness of breath. - Current Medication List Current Medications: Active Medications Albuterol Sulfate (Ventolin 0.5% -) 1 amp NEB Q4H PRN PRN Reason: SHORT OF BREATH/WHEEZING Amlodipine Besylate (Norvasc -) 5 mg PO DAILY [facility] Last Admin: 02/18/18 11:09 Dose: 5 mg Aspirin (Ecotrin -) 81 mg PO DAILY [facility] Last Admin: 02/18/18 11:10 Dose: 81 mg Citalopram Hydrobromide (Celexa -) 10 mg PO DAILY [facility] Last Admin: 02/18/18 11:09 Dose: 10 mg Heparin Sodium (Porcine) (Heparin -) 5,000 unit SQ TID [facility] Last Admin: 02/18/18 14:42 Dose: 5,000 unit Piperacillin Sod/Tazobactam (Sod 2.25 gm/ Dextrose) 50 mls @ 100 mls/hr IVPB Q8H-IV [facility]; Protocol Last Admin: 02/18/18 11:08 Dose: 100 mls/hr Labetalol HCl (Normodyne -) 300 mg PO BID [facility] Last Admin: 02/18/18 11:09 Dose: 300 mg Levetiracetam (Keppra -) 500 mg PO BID [facility] Last Admin: 02/18/18 11:09 Dose: 500 mg Loperamide HCl (Imodium -) 2 mg PO Q8H PRN PRN Reason: DIARRHEA Last Admin: 02/17/18 17:58 Dose: 2 mg Multivitamins/Minerals (Theragran-M) 1 each PO DAILY [facility] Last Admin: 02/18/18 11:10 Dose: 1 each Ondansetron HCl (Zofran Injection) 4 mg IVPB Q6H PRN PRN Reason: NAUSEA Oxycodone HCl (Roxicodone -) 10 mg PO Q4H PRN PRN Reason: PAIN LEVEL 6-10 Last Admin: 02/18/18 14:51 Dose: 10 mg Pantoprazole Sodium (Protonix -) 40 mg PO DAILY [facility] Last Admin: 02/18/18 11:10 Dose: 40 mg Sodium Bicarbonate (Sodium Bicarbonate -) 650 mg PO TID [facility] Last Admin: 02/18/18 14:43 Dose: 650 mg - Objective Vital Signs: Vital Signs Temperature 98 F 02/18/18 14:07 Pulse Rate 68 02/18/18 14:07 Respiratory Rate 18 02/18/18 14:07 Blood Pressure 140/71 02/18/18 14:07 O2 Sat by Pulse Oximetry (%) 94 L 02/17/18 21:00 Constitutional: Yes: Calm Eyes: Yes: Conjunctiva Clear HENT: Yes: Atraumatic Neck: Yes: Supple Cardiovascular: Yes: S1, S2 Respiratory: Yes: CTA Bilaterally, On Nasal O2 Gastrointestinal: Yes: Soft Genitourinary: Yes: Kilpatrick Present Musculoskeletal: Yes: WNL Edema: Yes Edema: LLE: 1+, RLE: 1+ Integumentary: Yes: WNL Neurological: Yes: Oriented Psychiatric: Yes: Oriented Labs: CBC, BMP 02/18/18 06:00 02/18/18 06:00 INR, PTT INR 1.13 (0.83-1.09) H 02/11/18 19:50 Problem List - Problems (1) QUINTEN (acute kidney injury) Code(s): N17.9 - ACUTE KIDNEY FAILURE, UNSPECIFIED (2) Elevated liver enzymes Code(s): R74.8 - ABNORMAL LEVELS OF OTHER SERUM ENZYMES (3) Rhabdomyolysis Code(s): M62.82 - RHABDOMYOLYSIS Assessment/Plan Current Medications Generic Name Dose Route Start Last Admin Trade Name Freq PRN Reason Stop Dose Admin Albuterol Sulfate 1 amp 02/17/18 20:00 Ventolin 0.5% - NEB Q4H PRN SHORT OF BREATH/WHEEZING Amlodipine Besylate 5 mg 02/18/18 10:00 02/18/18 11:09 Norvasc - PO 5 mg DAILY [facility] Administration Aspirin 81 mg 02/18/18 10:00 02/18/18 11:10 Ecotrin - PO 81 mg DAILY [facility] Administration Citalopram Hydrobromide 10 mg 02/18/18 10:00 02/18/18 11:09 Celexa - PO 10 mg DAILY [facility] Administration Heparin Sodium (Porcine) 5,000 unit 02/17/18 22:00 02/18/18 14:42 Heparin - SQ 5,000 unit TID [facility] Administration Piperacillin Sod/Tazobactam 50 mls @ 100 mls/hr 02/17/18 18:00 02/18/18 11:08 Sod 2.25 gm/ Dextrose IVPB 100 mls/hr Q8H-IV [facility] Administration Protocol Labetalol HCl 300 mg 02/17/18 22:00 02/18/18 11:09 Normodyne - PO 300 mg BID [facility] Administration Levetiracetam 500 mg 02/17/18 22:00 02/18/18 11:09 Keppra - PO 500 mg BID [facility] Administration Loperamide HCl 2 mg 02/17/18 16:07 02/17/18 17:58 Imodium - PO 2 mg Q8H PRN Administration DIARRHEA Multivitamins/Minerals 1 each 02/18/18 10:00 02/18/18 11:10 Theragran-M PO 1 each DAILY [facility] Administration Ondansetron HCl 4 mg 02/17/18 20:00 Zofran Injection IVPB Q6H PRN NAUSEA Oxycodone HCl 10 mg 02/17/18 20:00 02/18/18 14:51 Roxicodone - PO 10 mg Q4H PRN Administration PAIN LEVEL 6-10 Pantoprazole Sodium 40 mg 02/18/18 10:00 02/18/18 11:10 Protonix - PO 40 mg DAILY [facility] Administration Sodium Bicarbonate 650 mg 02/17/18 15:30 02/18/18 14:43 Sodium Bicarbonate - PO 650 mg TID BR[facility]ON Administration Laboratory Tests 02/12/18 02/13/18 02/16/18 05:30 05:30 16:00 REFUGIO M-Vincent LIANET Screen Negative Pending c-ANCA Pending Proteinase 3 (PR3) Pending p-ANCA Pending Atypical p-ANCA Pending Myeloperoxidase Ab Pending Double Strand DNA Ab <1 Smooth [employer]c &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 QUINTEN 2. Rhabdo 3. acidosis 4. transaminitis 5. altered mental status 6. overdose - opioid 7. sepsis 8. hypotension Plan - follow serologic workup - cont to monitor urine output - repeat labs in am - cont with bicarb - discussed possibility of kidney biopsy and dialysis with pt - will hold off lasix for today - discussed with primary team - monitor LFTs Dr Macario
[2018-02-18] MEDS ORDERED: DEXTROSE 5%-WATER 100 ML IVPB ONE (20:18)
[2018-02-18] MEDS: PIPERACILLIN/TAZOB 2.25 GM 2.25 GM in DEXTROSE 5%-WATER 100 ML IVPB SCH (20:48)
[2018-02-19] MEDS: PIPERACILLIN/TAZOB 2.25 GM 2.25 GM in DEXTROSE 5%-WATER 100 ML IVPB SCH ×3 (03:00→17:37)
[2018-02-19] MEDS: oxyCODONE HCL 5 MG TABLET PO PRN ×4 (03:27→21:15)
[2018-02-19] MEDS: SODIUM BICARBONATE 650 MG TABLET PO SCH ×3 (06:15→21:14)
[2018-02-19] MEDS: HEPARIN NA (PORCINE) 5,000 UNITS/ML 1ML VIAL SQ SCH ×3 (06:15→21:14)
[2018-02-19 07:16] LABS: BASO % 0.9 % (0-2.0); EOS % 3.8 % (0-4.5); HEMATOCRIT 29.3 % (32.4-45.2); HEMOGLOBIN 9.8 GM/dL (10.7-15.3); LYMPH % 13.6 % (8-40); MCH 31.8 pg (25.7-33.7); MCHC 33.3 g/dl (32.0-36.0); MEAN CELL VOLUME 95.4 fl (80-96); MEAN PLT VOLUME 9.3 fl (7.5-11.1); MONO % 11.2 % (3.8-10.2); NEUT % 70.5 % (42.8-82.8); PLATELET COUNT 225 K/MM3 (134-434); RBC 3.08 M/mm3 (3.60-5.2); RDW 15.5 % (11.6-15.6); WHITE BLOOD COUNT 12.9 K/mm3 (4.0-10.0)
[2018-02-19 07:42] LABS: CHLORIDE 113 mmol/L (98-107); POTASSIUM 3.2 mmol/L (3.5-5.1); SODIUM 146 mmol/L (136-145)
[2018-02-19 07:54] LABS: ALBUMIN 2.1 g/dl (3.4-5.0); ALK PHOS 71 U/L (45-117); ANION GAP 17 MMOL/L (8-16); BILIRUBIN,TOTAL 0.9 mg/dL (0.2-1.0); BLOOD UREA NITROGEN 58 mg/dL (7-18); CALCIUM 7.8 mg/dL (8.5-10.1); CO2 16 mmol/L (21-32); CREATININE 5.5 mg/dL (0.55-1.02); GLUCOSE,RANDOM 88 mg/dL (74-106); SGOT/AST 26 U/L (15-37); SGPT/ALT 142 U/L (12-78); TOT PROT 5.2 g/dl (6.4-8.2)
[2018-02-19] MEDS ORDERED: POTASSIUM CHLORIDE TABS 20 MEQ TABLET.ER (FP) PO ONE (08:28)
--- NOTE | 2018-02-19 08:37 | PN ---
Teaching Attending Note Name of Resident: Melvin Dutton ATTENDING PHYSICIAN STATEMENT I saw and evaluated the patient. I reviewed the resident's note and discussed the case with the resident. I agree with the resident's findings and plan as documented. SUBJECTIVE: Patient is comfortable but c/o having cough and continues to c/o having low back pain. OBJECTIVE: Vital Signs Temperature 98.4 F 02/19/18 06:00 Pulse Rate 74 02/19/18 06:00 Respiratory Rate 20 02/19/18 06:00 Blood Pressure 160/65 02/19/18 06:00 O2 Sat by Pulse Oximetry (%) 92 L 02/18/18 21:00 CBCD WBC 12.9 K/mm3 (4.0-10.0) H 02/19/18 06:00 RBC 3.08 M/mm3 (3.60-5.2) L 02/19/18 06:00 Hgb 9.8 GM/dL (10.7-15.3) L 02/19/18 06:00 Hct 29.3 % (32.4-45.2) L 02/19/18 06:00 MCV 95.4 fl (80-96) 02/19/18 06:00 MCHC 33.3 g/dl (32.0-36.0) 02/19/18 06:00 RDW 15.5 % (11.6-15.6) 02/19/18 06:00 Plt Count 225 K/MM3 (134-434) D 02/19/18 06:00 MPV 9.3 fl (7.5-11.1) 02/19/18 06:00 CMP Sodium 146 mmol/L (136-145) H 02/19/18 06:00 Potassium 3.2 mmol/L (3.5-5.1) L 02/19/18 06:00 Chloride 113 mmol/L (98-107) H 02/19/18 06:00 Carbon Dioxide 16 mmol/L (21-32) L 02/19/18 06:00 Anion Gap 17 MMOL/L (8-16) H 02/19/18 06:00 BUN 58 mg/dL (7-18) H 02/19/18 06:00 Creatinine 5.5 mg/dL (0.55-1.02) H 02/19/18 06:00 Creat Clearance w eGFR 7.83 (>60) 02/19/18 06:00 Random Glucose 88 mg/dL (74-106) 02/19/18 06:00 Calcium 7.8 mg/dL (8.5-10.1) L 02/19/18 06:00 Total Bilirubin 0.9 mg/dL (0.2-1.0) 02/19/18 06:00 AST 26 U/L (15-37) 02/19/18 06:00 ALT 142 U/L (12-78) H 02/19/18 06:00 Alkaline Phosphatase 71 U/L (45-117) 02/19/18 06:00 Total Protein 5.2 g/dl (6.4-8.2) L 02/19/18 06:00 Albumin 2.1 g/dl (3.4-5.0) L 02/19/18 06:00 CARDIAC ENZYMES Creatine Kinase 289 IU/L (26-192) H 02/16/18 05:30 Troponin I 5.73 ng/ml (0.00-0.05) H* 02/13/18 05:30 Current Medications Generic Name Dose Route Start Last Admin Trade Name Freq PRN Reason Stop Dose Admin Albuterol Sulfate 1 amp 02/17/18 20:00 Ventolin 0.5% - NEB Q4H PRN SHORT OF BREATH/WHEEZING Amlodipine Besylate 5 mg 02/18/18 10:00 02/18/18 11:09 Norvasc - PO 5 mg DAILY [facility] Administration Aspirin 81 mg 02/18/18 10:00 02/18/18 11:10 Ecotrin - PO 81 mg DAILY [facility] Administration Citalopram Hydrobromide 10 mg 02/18/18 10:00 02/18/18 11:09 Celexa - PO 10 mg DAILY [facility] Administration Heparin Sodium (Porcine) 5,000 unit 02/17/18 22:00 02/19/18 06:15 Heparin - SQ 5,000 unit TID [facility] Administration Piperacillin Sod/Tazobactam 100 mls @ 200 mls/hr 02/18/18 20:00 02/19/18 03: 00 Sod 2.25 gm/ Dextrose IVPB 200 mls/hr Q8H-IV [facility] Administration Protocol Labetalol HCl 300 mg 02/17/18 22:00 02/18/18 21:21 Normodyne - PO 300 mg BID [facility] Administration Levetiracetam 500 mg 02/17/18 22:00 02/18/18 21:21 Keppra - PO 500 mg BID [facility] Administration Loperamide HCl 2 mg 02/17/18 16:07 02/17/18 17:58 Imodium - PO 2 mg Q8H PRN Administration DIARRHEA Multivitamins/Minerals 1 each 02/18/18 10:00 02/18/18 11:10 Theragran-M PO 1 each DAILY [facility] Administration Ondansetron HCl 4 mg 02/17/18 20:00 Zofran Injection IVPB Q6H PRN NAUSEA Oxycodone HCl 10 mg 02/17/18 20:00 02/19/18 03:27 Roxicodone - PO 10 mg Q4H PRN Administration PAIN LEVEL 6-10 Pantoprazole Sodium 40 mg 02/18/18 10:00 02/18/18 11:10 Protonix - PO 40 mg DAILY [facility] Administration Potassium Chloride 40 meq 02/19/18 08:28 K-Dur - PO 02/19/18 08:29 ONCE ONE Sodium Bicarbonate 650 mg 02/17/18 15:30 02/19/18 06:15 Sodium Bicarbonate - PO 650 mg TID BRANDON Administration Home Medications Medication Instructions Recorded Citalopram Hydrobromide [Celexa -] 10 mg PO DAILY #14 tablet 06/09/17 Gabapentin 800 mg PO TID 02/12/18 oxyCODONE HCL [Roxicodone -] 10 mg PO Q6H PRN MDD 40 02/12/18 Microbiology 02/17/18 10:44 Urine - Urine Kilpatrick Urine Culture - Final Yeast Like Organism 02/11/18 19:50 Blood - Peripheral Venous Blood Culture - Final NO GROWTH AFTER 5 DAYS INCUBATION 02/11/18 19:50 Blood - Peripheral Venous Blood Culture - Final NO GROWTH AFTER 5 DAYS INCUBATION 02/16/18 06:00 Urine For Antigen Detection Legionella Antigen - Final 02/16/18 06:00 Urine For Antigen Detection Streptococcus pneumoniae Antigen (M - Final 02/13/18 11:20 Stool Salmonella/Shigella Culture - Final Yeast Like Organism 02/13/18 11:20 Stool Campylobacter Culture - Final NO GROWTH OF CAMPYLOBACTER SPECIES OBTAINED 02/13/18 11:20 Stool Yersinia Culture - Final NO GROWTH OF YERSINIA SPECIES OBTAINED 02/13/18 11:20 Stool Vibrio Culture - Final NO GROWTH OF VIBRIO SPECIES OBTAINED 02/13/18 11:20 Stool Escherichia coli 0157 Culture - Final NO GROWTH OF E COLI 0157 OBTAINED 02/13/18 11:20 Stool Gram Stain - Final 02/13/18 08:40 Urine - Urine Kilpatrick Urine Culture - Final NO GROWTH OBTAINED 02/13/18 11:20 Stool Clostridium difficile Antigen (CHRISTINA) - Final 02/13/18 11:20 Stool Clostridium difficile Toxin Assay - Final 02/11/18 21:35 Urine - Urine - Catheterized Urine Culture - Final NO GROWTH OBTAINED PE:per resident's note assessment/plan: Patient is a 62yo female with PMHx of chronic opioids use, possible seizure disorder due to opioids withdrawel, anxiety, depression and panic attacks who was brought in to ED since was found to be unresponsive. # QUINTEN improving today: (Cr.5.9-->5.5 today) Possible due to ATN from transient hypotension /sepsis/Rhabdo . Urine output is improving . off IVF due to volume overload , further management per nephro. Lasix as needed per nephro # S/p of Opioid Overdose was found to be unresponsive resolved , patient is awake and alert # Right occipital stroke : on ASA, can't give statin due to having rhabdo who presented with RF, MRA of neck with no significant stenosis #Seizure disorder on Keppra continue # HTN: On labetalol and Norvasc continue # Rhabdomyolysis: CPK improved , can't give statins due to Rhabdo.and Kidney function to improve # acute hypoxic resp failure most likely due to opoiod OD # Transaminitis :possible stricture on MRCP. LFTS improved. Gi follow up as out pt # s/p Sepsis : unclear source.. blood cx and stool cx neg. On zosyn , no growth so far # S/p Normal AG Metabolic acidosis : likely due renal failure and diarrhea. # NSTEMI: possible due to demand ischemia on ASA, can't give statins due to renal failure . # Rectal bleed : ischemic vs internal hemorrhoids. resolved . hemoglobin stable. # chronic back pain , oxy at increased dose. will not resume Fentanyl patch . Pain management consult. DVT Px: heparin Robitussin for Cough.
[2018-02-19] MEDS ORDERED: DEXTROSE 5%-WATER 100 ML IVPB ONE (09:15)
[2018-02-19] MEDS ORDERED: PIPERACILLIN/TAZOBACTAM 2.25 GM VIAL IVPB ONE (09:15)
[2018-02-19] MEDS: CITALOPRAM HYDROBROMIDE 10 MG TABLET (FP) PO SCH (09:17)
[2018-02-19] MEDS: LABETALOL HCL 200 MG TABLET (FP) PO SCH ×2 (09:17→21:15)
[2018-02-19] MEDS: levETIRAcetam 500 MG TABLET (FP) PO SCH ×2 (09:17→21:15)
[2018-02-19] MEDS: ASPIRIN COATED 81 MG TABLET.EC PO SCH (09:17)
[2018-02-19] MEDS: PANTOPRAZOLE 40 MG TABLET (FP) PO SCH (09:17)
[2018-02-19] MEDS: amLODIPine BESYLATE 5 MG TABLET (FP) PO SCH (09:17)
[2018-02-19] MEDS: MULTIVITAMINS THER W-MINERALS COMBO TABLET (FP) PO SCH (09:17)
[2018-02-19 10:18] LABS: ANTIGLOMERULAR BASEMENT MEN.AB 5 units (0-20)
[2018-02-19 10:39] LABS: ANISOCYTOSIS 1+; MACROCYTOSIS 0; PLATELET ESTIMATE NORMAL
--- NOTE | 2018-02-19 11:08 | PN ---
Physical Exam: SUBJECTIVE: Patient seen and examined at bedside. She admits she slept well last night, and admits her upper extremity strength and sensation is returned to baseline. Complains of productive cough with clear sputum, and admits her breathing is also improved. OBJECTIVE: Vital Signs Period Temp Pulse Resp BP Sys/Gruber Pulse Ox Last 24 Hr 98 F-98.4 F 68-76 18-20 140-160/65-77 92-92 GENERAL: The patient is awake, alert, and fully oriented, in no acute distress. HEAD: Normal with no signs of trauma. EYES: PERRL, extraocular movements intact, sclera anicteric, conjunctiva clear. ENT: Oropharynx clear without exudates, moist mucous membranes. NECK: Supple without lymphadenopathy LUNGS: End expiratory wheezing auscultated B/L lower lung lobes. No accessory muscle use. HEART: Regular rate and rhythm, S1, S2 without murmur, rub or gallop. ABDOMEN: Soft, nontender, nondistended, normoactive bowel sounds, no guarding, no rebound, no hepatosplenomegaly. EXTREMITIES: 2+ pulses, warm, well-perfused. NEUROLOGICAL: Cranial nerves II through XII grossly intact. Normal speech. Strength RUE abduction 4/5, flexion 5/5, extension 5/5. LUE abduction 5/5, flexion 5/5, extension 5/5. Right hip flexion 5/5, knee flexion and extension 5/ 5. Left hip flexion 5/5, knee flexion and extension 5/5. Plantarflexion and dorsiflexion 5/5/ B/L PSYCH: Appropriate mood and affect upon exam today SKIN: Warm, dry, normal turgor. Laboratory Results - last 24 hr 02/16/18 02/18/18 02/19/18 16:00 06:00 06:00 WBC 12.9 H RBC 3.08 L Hgb 9.8 L Hct 29.3 L MCV 95.4 MCH 31.8 MCHC 33.3 RDW 15.5 Plt Count 225 D MPV 9.3 Absolute Neuts (auto) 9.1 H Neutrophils % 70.5 Neutrophils % (Manual) 70.0 Band Neutrophils % 0.0 Lymphocytes % 13.6 Lymphocytes % (Manual) 12.0 D Monocytes % 11.2 H Monocytes % (Manual) 10 Eosinophils % 3.8 Eosinophils % (Manual) 7.0 H D Basophils % 0.9 Basophils % (Manual) 0.0 Myelocytes % (Man) 1 D Promyelocytes % (Man) 0 Blast Cells % (Manual) 0 Nucleated RBC % 0 Metamyelocytes 0 Hypochromia 0 Platelet Estimate Normal Polychromasia 0 Poikilocytosis 0 Anisocytosis 1+ Microcytosis 0 Macrocytosis 1+ Sodium Potassium Chloride Carbon Dioxide Anion Gap BUN Creatinine Creat Clearance w eGFR Random Glucose Calcium Total Bilirubin AST ALT Alkaline Phosphatase Total Protein Albumin LIANET Screen Negative Double Strand DNA Ab <1 Glomerular Base Memb Ab 5 02/19/18 06:00 WBC RBC Hgb Hct MCV MCH MCHC RDW Plt Count MPV Absolute Neuts (auto) Neutrophils % Neutrophils % (Manual) Band Neutrophils % Lymphocytes % Lymphocytes % (Manual) Monocytes % Monocytes % (Manual) Eosinophils % Eosinophils % (Manual) Basophils % Basophils % (Manual) Myelocytes % (Man) Promyelocytes % (Man) Blast Cells % (Manual) Nucleated RBC % Metamyelocytes Hypochromia Platelet Estimate Polychromasia Poikilocytosis Anisocytosis Microcytosis Macrocytosis Sodium 146 H Potassium 3.2 L Chloride 113 H Carbon Dioxide 16 L Anion Gap 17 H BUN 58 H Creatinine 5.5 H Creat Clearance w eGFR 7.83 Random Glucose 88 Calcium 7.8 L Total Bilirubin 0.9 AST 26 ALT 142 H Alkaline Phosphatase 71 Total Protein 5.2 L Albumin 2.1 L LIANET Screen Double Strand DNA Ab Glomerular Base Memb Ab Active Medications Generic Name Dose Route Start Last Admin Trade Name Freq PRN Reason Stop Dose Admin Albuterol Sulfate 1 amp 02/17/18 20:00 Ventolin 0.5% - NEB Q4H PRN SHORT OF BREATH/WHEEZING Amlodipine Besylate 5 mg 02/18/18 10:00 02/19/18 09:17 Norvasc - PO 5 mg DAILY [facility]ON Administration Aspirin 81 mg 02/18/18 10:00 02/19/18 09:17 Ecotrin - PO 81 mg DAILY [facility] Administration Citalopram Hydrobromide 10 mg 02/18/18 10:00 02/19/18 09:17 Celexa - PO 10 mg DAILY [facility] Administration Heparin Sodium (Porcine) 5,000 unit 02/17/18 22:00 02/19/18 06:15 Heparin - SQ 5,000 unit TID [facility]ON Administration Piperacillin Sod/Tazobactam 100 mls @ 200 mls/hr 02/18/18 20:00 02/19/18 09: 22 Sod 2.25 gm/ Dextrose IVPB 200 mls/hr Q8H-IV [facility]ON Administration Protocol Labetalol HCl 300 mg 02/17/18 22:00 02/19/18 09:17 Normodyne - PO 300 mg BID [facility] Administration Levetiracetam 500 mg 02/17/18 22:00 02/19/18 09:17 Keppra - PO 500 mg BID [facility] Administration Loperamide HCl 2 mg 02/17/18 16:07 02/17/18 17:58 Imodium - PO 2 mg Q8H PRN Administration DIARRHEA Multivitamins/Minerals 1 each 02/18/18 10:00 02/19/18 09:17 Theragran-M PO 1 each DAILY [facility] Administration Ondansetron HCl 4 mg 02/17/18 20:00 Zofran Injection IVPB Q6H PRN NAUSEA Oxycodone HCl 10 mg 02/17/18 20:00 02/19/18 09:17 Roxicodone - PO 10 mg Q4H PRN Administration PAIN LEVEL 6-10 Pantoprazole Sodium 40 mg 02/18/18 10:00 02/19/18 09:17 Protonix - PO 40 mg DAILY [facility] Administration Sodium Bicarbonate 650 mg 02/17/18 15:30 02/19/18 06:15 Sodium Bicarbonate - PO 650 mg TID BR[facility]ON Administration ASSESSMENT/PLAN: 62 y/o female with opiod dependence, chronic pain, anxiety, depression, and seizure disorder presented unresponsive with a fentanyl patch in her mouth, admitted for unresponsiveness. Unresponsiveness -Likely secondary to opiod overdose as she was found with Fentanyl patch in her mouth. -Significant improvement in strength of right upper extremity and right lower extremities. As per patient returning to baseline -MRI showed right sided occipital stroke, which does not correlate with her physical exam. -MRA neck showed mild atherosclerotic narrowing at origin of left internal carotid artery. Negative for significant stenosis B/L. -Keppra 500 PO BID -CXR showed left pleural effusion, left lower lobe pneumonia with compressive atelectasis. -Doppler of lower extremeties showed no evidence of DVT B/L lower extremities. -(Dr. Colon) Infectious Disease consult appreciated: Continue Zosyn 2.25mg IVPB Q8H (day 8) -UA showed 1+ blood, 3 WBC, 1RBC, rare bacteria. -Urine cultures pending preliminary reading. Negative for Legionella antigen. Diarrhea -Stool cultures grew yeast like organism in Salmonella/ Shigella culture. -No growth in Campylobacter, Yersenia, Vibrio, E.coli 0157. -C. diff cultures negative -Immodium 2mg PO Q8H Anxiety -Patient has history of anxiety -(Dr. Garza) Psychiatric consult appreciated: Will continue Celexa 10mg PO QD. Patient is not suicidal at this time as per psych. Hypokalemia -Potassium has been decreasing to 3.2 today, down from 3.5 yesterday. -Nephrology recommendation appreciated (Dr. Macario): Will replete potassium. 10mg PO K-dur given. -F/U CMP QUINTEN -Likely due to rhabdomyolisis which is resolving. -(Dr. Macario) Nephrology consult appreciated: Fluids discontinued. Patient to consider possibility of HD and renal biopsy if renal function does not improve. -Sodium Bicarb 650mg PO changed from BID to TID per nephrology -Will hold Diuresis with Lasix today per bowling alley refinisher recommendation -Will F/U C-AnCA Antinuclear AB, Anti GBM AB, DS DNA AB NSTEMI- -Likely d/t demand ischemia -(Dr. Choi) Cardiology consult appreciated: Continue aspirin 81 -No statins d/t increased LFTs -Echo showed normal LV function with EF >70% HTN -Labetalol 300mg BID -Begin Norvasc 5gm Right lower extremity pain -Oxycontin increased to 10mg -F/U pain management consult (Dr. Chris Reese) Transaminitis: -MRCP showed distended gallbladder, dialted intrahepatic duct, dilated common bile duct, and ?stricture -(Dr. Allred/ Shonda) GI consult appreciated: Patient will benefit from UES as outpatient. -Hepatitis A,B,C serology negative Prophylaxis -Heparin 5000units TID -Protonix 40mg PO FEN -No IV fluids -Will follow BMP -Regular diet Disposition: Continue care in medical-surgical floor Visit type - Emergency Visit Emergency Visit: No - New Patient This patient is new to me today: No - Critical Care Critical Care patient: No - Discharge Referral Referred to [facility] Med P.C.: No
[2018-02-19] MEDS: LOPERAMIDE HCL 2 MG CAPSULE PO PRN ×2 (12:13→21:15)
--- NOTE | 2018-02-19 13:56 | PN ---
Progress Note, Physician History of Present Illness: Pt seen and examined at bedside. She is awake and alert. She denies shortness of breath. - Current Medication List Current Medications: Active Medications Albuterol Sulfate (Ventolin 0.5% -) 1 amp NEB Q4H PRN PRN Reason: SHORT OF BREATH/WHEEZING Amlodipine Besylate (Norvasc -) 5 mg PO DAILY [facility] Last Admin: 02/19/18 09:17 Dose: 5 mg Aspirin (Ecotrin -) 81 mg PO DAILY [facility] Last Admin: 02/19/18 09:17 Dose: 81 mg Citalopram Hydrobromide (Celexa -) 10 mg PO DAILY [facility] Last Admin: 02/19/18 09:17 Dose: 10 mg Heparin Sodium (Porcine) (Heparin -) 5,000 unit SQ TID [facility] Last Admin: 02/19/18 06:15 Dose: 5,000 unit Piperacillin Sod/Tazobactam (Sod 2.25 gm/ Dextrose) 100 mls @ 200 mls/hr IVPB Q8H-IV [facility]; Protocol Last Admin: 02/19/18 09:22 Dose: 200 mls/hr Labetalol HCl (Normodyne -) 300 mg PO BID [facility] Last Admin: 02/19/18 09:17 Dose: 300 mg Levetiracetam (Keppra -) 500 mg PO BID [facility] Last Admin: 02/19/18 09:17 Dose: 500 mg Loperamide HCl (Imodium -) 2 mg PO Q8H PRN PRN Reason: DIARRHEA Last Admin: 02/19/18 12:13 Dose: 2 mg Multivitamins/Minerals (Theragran-M) 1 each PO DAILY [facility] Last Admin: 02/19/18 09:17 Dose: 1 each Ondansetron HCl (Zofran Injection) 4 mg IVPB Q6H PRN PRN Reason: NAUSEA Oxycodone HCl (Roxicodone -) 10 mg PO Q4H PRN PRN Reason: PAIN LEVEL 6-10 Last Admin: 02/19/18 09:17 Dose: 10 mg Pantoprazole Sodium (Protonix -) 40 mg PO DAILY [facility] Last Admin: 02/19/18 09:17 Dose: 40 mg Sodium Bicarbonate (Sodium Bicarbonate -) 650 mg PO TID [facility] Last Admin: 02/19/18 06:15 Dose: 650 mg - Objective Vital Signs: Vital Signs Temperature 98 F 02/19/18 09:23 Pulse Rate 76 02/19/18 09:23 Respiratory Rate 20 02/19/18 09:23 Blood Pressure 156/77 02/19/18 09:23 O2 Sat by Pulse Oximetry (%) 92 L 02/19/18 09:00 Constitutional: Yes: Calm Eyes: Yes: Conjunctiva Clear HENT: Yes: Atraumatic Neck: Yes: Supple Cardiovascular: Yes: S1, S2 Respiratory: Yes: CTA Bilaterally, On Nasal O2 Gastrointestinal: Yes: Soft Genitourinary: Yes: WNL Musculoskeletal: Yes: WNL Edema: LLE: Trace, RLE: Trace Neurological: Yes: Oriented Psychiatric: Yes: Oriented Labs: CBC, BMP 02/19/18 06:00 02/19/18 06:00 INR, PTT INR 1.13 (0.83-1.09) H 02/11/18 19:50 Problem List - Problems (1) QUINTEN (acute kidney injury) Code(s): N17.9 - ACUTE KIDNEY FAILURE, UNSPECIFIED (2) Elevated liver enzymes Code(s): R74.8 - ABNORMAL LEVELS OF OTHER SERUM ENZYMES (3) Rhabdomyolysis Code(s): M62.82 - RHABDOMYOLYSIS Assessment/Plan Current Medications Generic Name Dose Route Start Last Admin Trade Name Freq PRN Reason Stop Dose Admin Albuterol Sulfate 1 amp 02/17/18 20:00 Ventolin 0.5% - NEB Q4H PRN SHORT OF BREATH/WHEEZING Amlodipine Besylate 5 mg 02/18/18 10:00 02/19/18 09:17 Norvasc - PO 5 mg DAILY BR[facility]ON Administration Aspirin 81 mg 02/18/18 10:00 02/19/18 09:17 Ecotrin - PO 81 mg DAILY [facility]ON Administration Citalopram Hydrobromide 10 mg 02/18/18 10:00 02/19/18 09:17 Celexa - PO 10 mg DAILY [facility]ON Administration Heparin Sodium (Porcine) 5,000 unit 02/17/18 22:00 02/19/18 06:15 Heparin - SQ 5,000 unit TID BRANDON Administration Piperacillin Sod/Tazobactam 100 mls @ 200 mls/hr 02/18/18 20:00 02/19/18 09: 22 Sod 2.25 gm/ Dextrose IVPB 200 mls/hr Q8H-IV [facility] Administration Protocol Labetalol HCl 300 mg 02/17/18 22:00 02/19/18 09:17 Normodyne - PO 300 mg BID BR[facility]ON Administration Levetiracetam 500 mg 02/17/18 22:00 02/19/18 09:17 Keppra - PO 500 mg BID BR[facility]ON Administration Loperamide HCl 2 mg 02/17/18 16:07 02/19/18 12:13 Imodium - PO 2 mg Q8H PRN Administration DIARRHEA Multivitamins/Minerals 1 each 02/18/18 10:00 02/19/18 09:17 Theragran-M PO 1 each DAILY [facility] Administration Ondansetron HCl 4 mg 02/17/18 20:00 Zofran Injection IVPB Q6H PRN NAUSEA Oxycodone HCl 10 mg 02/17/18 20:00 02/19/18 09:17 Roxicodone - PO 10 mg Q4H PRN Administration PAIN LEVEL 6-10 Pantoprazole Sodium 40 mg 02/18/18 10:00 02/19/18 09:17 Protonix - PO 40 mg DAILY BRANDON Administration Sodium Bicarbonate 650 mg 02/17/18 15:30 02/19/18 06:15 Sodium Bicarbonate - PO 650 mg TID BRANDON Administration Laboratory Tests 02/13/18 02/16/18 05:30 16:00 LIANET Screen Negative c-ANCA Pending Atypical p-ANCA Pending Myeloperoxidase Ab Pending Double Strand DNA Ab <1 Smooth Musc &LUTE PACKER OR APPLIER Intrp 3 Glomerular Base Memb Ab 5 Impression 1. QUINTEN 2. Rhabdo 3. acidosis 4. transaminitis 5. altered mental status 6. overdose - opioid 7. sepsis 8. hypotension Plan - renal function is starting to improve - replace potassium - hold of lasix today - repeat labs in am - monitor urine output - follow serologies Dr Macario
--- NOTE | 2018-02-19 15:34 | PN ---
Progress Note (short form) - Note Progress Note: cc: unresponsive s: no cp, palps, dizzy, sob. feels tired. +cigs Current Medications Albuterol Sulfate (Ventolin 0.5% -) 1 amp NEB Q4H PRN PRN Reason: SHORT OF BREATH/WHEEZING Amlodipine Besylate (Norvasc -) 5 mg PO DAILY [facility] Last Admin: 02/19/18 09:17 Dose: 5 mg Aspirin (Ecotrin -) 81 mg PO DAILY [facility] Last Admin: 02/19/18 09:17 Dose: 81 mg Citalopram Hydrobromide (Celexa -) 10 mg PO DAILY [facility] Last Admin: 02/19/18 09:17 Dose: 10 mg Guaifenesin (Robitussin -) 10 ml PO Q8H PRN PRN Reason: COUGH Heparin Sodium (Porcine) (Heparin -) 5,000 unit SQ TID [facility] Last Admin: 02/19/18 14:01 Dose: 5,000 unit Piperacillin Sod/Tazobactam (Sod 2.25 gm/ Dextrose) 100 mls @ 200 mls/hr IVPB Q8H-IV [facility]; Protocol Last Admin: 02/19/18 09:22 Dose: 200 mls/hr Labetalol HCl (Normodyne -) 300 mg PO BID [facility] Last Admin: 02/19/18 09:17 Dose: 300 mg Levetiracetam (Keppra -) 500 mg PO BID [facility] Last Admin: 02/19/18 09:17 Dose: 500 mg Loperamide HCl (Imodium -) 2 mg PO Q8H PRN PRN Reason: DIARRHEA Last Admin: 02/19/18 12:13 Dose: 2 mg Multivitamins/Minerals (Theragran-M) 1 each PO DAILY [facility] Last Admin: 02/19/18 09:17 Dose: 1 each Ondansetron HCl (Zofran Injection) 4 mg IVPB Q6H PRN PRN Reason: NAUSEA Oxycodone HCl (Roxicodone -) 10 mg PO Q4H PRN PRN Reason: PAIN LEVEL 6-10 Last Admin: 02/19/18 15:07 Dose: 10 mg Pantoprazole Sodium (Protonix -) 40 mg PO DAILY [facility] Last Admin: 02/19/18 09:17 Dose: 40 mg Sodium Bicarbonate (Sodium Bicarbonate -) 650 mg PO TID [facility] Last Admin: 02/19/18 14:01 Dose: 650 mg Vital Signs Period Temp Pulse Resp BP Sys/Gruber Pulse Ox Last 24 Hr 98 F-98.7 F 69-76 18-20 140-160/65-77 92-92 Constitutional: Yes: No Distress, Calm Eyes: Yes: Conjunctiva Clear Neck: Yes: Supple Respiratory: Yes: Regular, CTA Bilaterally Gastrointestinal: Yes: Normal Bowel Sounds, Soft Renal/: Yes: Kilpatrick Present Cardiovascular: Yes: Regular Rate and Rhythm JVD: No Heart Sounds: Yes: S1, S2 Edema: No Peripheral Pulses: 2+ Left Doralis Pedis, 2+ Right Dorsalis Pedis Neurological: Yes: aao3 Psychiatric: Yes: Alert no jaundice diaphoresis Assessment/Plan EK/23 sinus, nonspecific T wave changes. 02/12 sinus, TWI III, V1-V3 CXR: no acute process echo nl LV function EF >70%, mod TR, RV mildly dilated with borderline reduced function carotid ultrasound: moderate stenosis right carotid 62F h/o opioid dependency, back pain using fentanyl patch, anxiety, seizure disorder p/w unresponsiveness, trop elevated, overdose NSTEMI - echo normal LV function - noted to have bloody BM, blood on rectal exam per primary team, deferring heparin gtt and plavix - on aspirin 81 mg daily - deferring statin due to elevated LFTs - will need ischemic eval after acute issues resolved Tachycardia - episodes of SVT on monitor, brief--> started on labetolol HTN -amlodipine started, cont labetolol, improving -if remains elevated may uptitrate amlodipine QUINTEN - possible ATN from hypotension/sepsis, improving elevated LFTs - likely in setting of rhabdo, receiving IVF/lasix as above - GI consulted as well, dilated CBD, less likely due to biliary source - defer statin as above stroke - r occipital - on aspirin, holding statin unresponsiveness - likely in setting of overdose (fentanyl in mouth, benzo+ in urine), possible sepsis, stroke, seizure - neurology consulted, on keppra - on IV abx, IV fluids, ID following - lactate improving, mental status improving leukocytosis - IV abx per primary team
[2018-02-19] MEDS ORDERED: POTASSIUM CHLORIDE TABS 10 MEQ TABLET.ER (FP) PO ONE (16:04)
[2018-02-19] MEDS: ALBUTEROL SO4 0.5 % INH SOLN 2.5 MG/0.5 ML VIAL.NEB. NEB PRN (21:09)
[2018-02-19] MEDS: guaiFENesin 200 MG/10 ML 10 ML UNIT-DOSE CUPS PO PRN (21:14)
[2018-02-20 00:08] LABS: ATYPICAL pANCA <1:20 titer (Neg:<1:20); C-ANCA <1:20 titer (Neg:<1:20); P-ANCA <1:20 titer (Neg:<1:20)
[2018-02-20] MEDS ORDERED: PIPERACILLIN/TAZOBACTAM 2.25 GM VIAL IVPB ONE ×3 (02:00→17:30)
[2018-02-20] MEDS ORDERED: DEXTROSE 5%-WATER 100 ML IVPB ONE ×3 (02:00→17:31)
[2018-02-20] MEDS: PIPERACILLIN/TAZOB 2.25 GM 2.25 GM in DEXTROSE 5%-WATER 100 ML IVPB SCH ×3 (02:16→17:34)
[2018-02-20] MEDS: oxyCODONE HCL 5 MG TABLET PO PRN ×4 (03:24→21:28)
[2018-02-20] MEDS: HEPARIN NA (PORCINE) 5,000 UNITS/ML 1ML VIAL SQ SCH ×2 (06:55→15:15)
[2018-02-20] MEDS: SODIUM BICARBONATE 650 MG TABLET PO SCH (06:55)
[2018-02-20 07:14] LABS: BASO % 1.1 % (0-2.0); EOS % 4.2 % (0-4.5); HEMATOCRIT 29.6 % (32.4-45.2); HEMOGLOBIN 9.9 GM/dL (10.7-15.3); LYMPH % 13.3 % (8-40); MCHC 33.5 g/dl (32.0-36.0); MEAN CELL VOLUME 95.5 fl (80-96); MEAN PLT VOLUME 8.7 fl (7.5-11.1); MONO % 8.6 % (3.8-10.2); NEUT % 72.8 % (42.8-82.8); PLATELET COUNT 238 K/MM3 (134-434); RDW 15.6 % (11.6-15.6); WHITE BLOOD COUNT 11.2 K/mm3 (4.0-10.0)
[2018-02-20 08:01] LABS: CHLORIDE 112 mmol/L (98-107); POTASSIUM 3.3 mmol/L (3.5-5.1); SODIUM 146 mmol/L (136-145)
[2018-02-20 08:09] LABS: ALBUMIN 2.1 g/dl (3.4-5.0); ALK PHOS 63 U/L (45-117); ANION GAP 15 MMOL/L (8-16); BILIRUBIN,TOTAL 0.8 mg/dL (0.2-1.0); BLOOD UREA NITROGEN 50 mg/dL (7-18); CALCIUM 7.9 mg/dL (8.5-10.1); CO2 19 mmol/L (21-32); CREATININE 4.7 mg/dL (0.55-1.02); GLUCOSE,RANDOM 89 mg/dL (74-106); SGOT/AST 21 U/L (15-37); SGPT/ALT 107 U/L (12-78); TOT PROT 5.3 g/dl (6.4-8.2)
--- NOTE | 2018-02-20 08:21 | PN ---
Progress Note (short form) - Note Progress Note: Patient is comfortable with no acute distress, continues to have diarrhea. Vital Signs Temperature 97.9 F 02/20/18 05:17 Pulse Rate 69 02/20/18 05:17 Respiratory Rate 20 02/20/18 05:17 Blood Pressure 158/77 02/20/18 05:17 O2 Sat by Pulse Oximetry (%) 94 L 02/19/18 21:00 CBCD WBC 11.2 K/mm3 (4.0-10.0) H 02/20/18 06:00 RBC 3.10 M/mm3 (3.60-5.2) L 02/20/18 06:00 Hgb 9.9 GM/dL (10.7-15.3) L 02/20/18 06:00 Hct 29.6 % (32.4-45.2) L 02/20/18 06:00 MCV 95.5 fl (80-96) 02/20/18 06:00 MCHC 33.5 g/dl (32.0-36.0) 02/20/18 06:00 RDW 15.6 % (11.6-15.6) 02/20/18 06:00 Plt Count 238 K/MM3 (134-434) 02/20/18 06:00 MPV 8.7 fl (7.5-11.1) 02/20/18 06:00 CMP Sodium 146 mmol/L (136-145) H 02/20/18 06:00 Potassium 3.3 mmol/L (3.5-5.1) L 02/20/18 06:00 Chloride 112 mmol/L (98-107) H 02/20/18 06:00 Carbon Dioxide 19 mmol/L (21-32) L 02/20/18 06:00 Anion Gap 15 MMOL/L (8-16) 02/20/18 06:00 BUN 50 mg/dL (7-18) H 02/20/18 06:00 Creatinine 4.7 mg/dL (0.55-1.02) H 02/20/18 06:00 Creat Clearance w eGFR 9.39 (>60) 02/20/18 06:00 Random Glucose 89 mg/dL (74-106) 02/20/18 06:00 Calcium 7.9 mg/dL (8.5-10.1) L 02/20/18 06:00 Total Bilirubin 0.8 mg/dL (0.2-1.0) 02/20/18 06:00 AST 21 U/L (15-37) 02/20/18 06:00 ALT 107 U/L (12-78) H 02/20/18 06:00 Alkaline Phosphatase 63 U/L (45-117) 02/20/18 06:00 Total Protein 5.3 g/dl (6.4-8.2) L 02/20/18 06:00 Albumin 2.1 g/dl (3.4-5.0) L 02/20/18 06:00 CARDIAC ENZYMES Creatine Kinase 289 IU/L (26-192) H 02/16/18 05:30 Troponin I 5.73 ng/ml (0.00-0.05) H* 02/13/18 05:30 Current Medications Generic Name Dose Route Start Last Admin Trade Name Freq PRN Reason Stop Dose Admin Albuterol Sulfate 1 amp 02/17/18 20:00 02/19/18 21:09 Ventolin 0.5% - NEB 1 amp Q4H PRN Administration SHORT OF BREATH/WHEEZING Amlodipine Besylate 5 mg 02/18/18 10:00 02/19/18 09:17 Norvasc - PO 5 mg DAILY [facility] Administration Aspirin 81 mg 02/18/18 10:00 02/19/18 09:17 Ecotrin - PO 81 mg DAILY [facility] Administration Citalopram Hydrobromide 10 mg 02/18/18 10:00 02/19/18 09:17 Celexa - PO 10 mg DAILY [facility] Administration Guaifenesin 10 ml 02/19/18 14:25 02/19/18 21:14 Robitussin - PO 10 ml Q8H PRN Administration COUGH Heparin Sodium (Porcine) 5,000 unit 02/17/18 22:00 02/20/18 06:55 Heparin - SQ 5,000 unit TID BR[facility]ON Administration Piperacillin Sod/Tazobactam 100 mls @ 200 mls/hr 02/18/18 20:00 02/20/18 02: 16 Sod 2.25 gm/ Dextrose IVPB 200 mls/hr Q8H-IV [facility] Administration Protocol Labetalol HCl 300 mg 02/17/18 22:00 02/19/18 21:15 Normodyne - PO 300 mg BID [facility]ON Administration Levetiracetam 500 mg 02/17/18 22:00 02/19/18 21:15 Keppra - PO 500 mg BID BR[facility]ON Administration Loperamide HCl 2 mg 02/17/18 16:07 02/19/18 21:15 Imodium - PO 2 mg Q8H PRN Administration DIARRHEA Multivitamins/Minerals 1 each 02/18/18 10:00 02/19/18 09:17 Theragran-M PO 1 each DAILY [facility] Administration Ondansetron HCl 4 mg 02/17/18 20:00 Zofran Injection IVPB Q6H PRN NAUSEA Oxycodone HCl 10 mg 02/17/18 20:00 02/20/18 03:24 Roxicodone - PO 10 mg Q4H PRN Administration PAIN LEVEL 6-10 Pantoprazole Sodium 40 mg 02/18/18 10:00 02/19/18 09:17 Protonix - PO 40 mg DAILY [facility] Administration Sodium Bicarbonate 650 mg 02/17/18 15:30 02/20/18 06:55 Sodium Bicarbonate - PO 650 mg TID BRANDON Administration Home Medications Medication Instructions Recorded Citalopram Hydrobromide [Celexa -] 10 mg PO DAILY #14 tablet 06/09/17 Gabapentin 800 mg PO TID 02/12/18 oxyCODONE HCL [Roxicodone -] 10 mg PO Q6H PRN MDD 40 02/12/18 Constitutional: Yes: Calm Eyes: Yes: Conjunctiva Clear HENT: Yes: Atraumatic Neck: Yes: Supple Cardiovascular: Yes: S1, S2 Respiratory: Yes: CTA Bilaterally, On Nasal O2 Gastrointestinal: Yes: Soft Genitourinary: Yes: WNL Musculoskeletal: Yes: WNL Edema: LLE: Trace, RLE: Trace Neurological: Yes: Oriented Psychiatric: Yes: Oriented assessment/plan: Patient is a 62yo female with PMHx of chronic opioids use, possible seizure disorder due to opioids withdrawel, anxiety, depression and panic attacks who was brought in to ED since was found to be unresponsive. # QUINTEN improving today: (Cr.5.9-->5.5-->4.7 today) Possible due to ATN from transient hypotension /sepsis/Rhabdo . Urine output is improving . off IVF due to volume overload , further management as per nephro. Lasix as needed per nephro # S/p of Opioid Overdose was found to be unresponsive resolved , patient is awake and alert #Diarrhea: on Imodium continue # Right occipital stroke : on ASA, can't give statin due to having rhabdo who presented with RF, MRA of neck with no significant stenosis #Seizure disorder on Keppra continue # HTN: On labetalol and Norvasc continue # Rhabdomyolysis: CPK improved , can't give statins due to Rhabdo.and Kidney function to improve # acute hypoxic resp failure most likely due to opoiod OD # Transaminitis :possible stricture on MRCP. LFTS improved. Gi follow up as out pt # s/p Sepsis : unclear source.. blood cx and stool cx neg. On zosyn , no growth so far # S/p Normal AG Metabolic acidosis : likely due renal failure and diarrhea. # NSTEMI: possible due to demand ischemia on ASA, can't give statins due to renal failure - echo normal LV function - noted to have bloody BM, blood on rectal exam , deferring heparin gtt and plavix - on aspirin 81 mg daily, deferring statin due to elevated LFTs and Rhabdo. - will need ischemic eval after acute issues resolved # Rectal bleed : ischemic vs internal hemorrhoids. resolved . hemoglobin stable. # chronic back pain , oxy at increased dose. will not resume Fentanyl patch . Pain management consult. DVT Px: heparin Robitussin for Cough. Visit type - Emergency Visit Emergency Visit: Yes ED Registration Date: 02/11/18 Care time: The patient presented to the Emergency Department on the above date and was hospitalized for further evaluation of their emergent condition. - New Patient This patient is new to me today: No - Critical Care Critical Care patient: No - Discharge Referral Referred to [facility] Med P.C.: No
[2018-02-20] MEDS: LOPERAMIDE HCL 2 MG CAPSULE PO PRN ×3 (09:32→21:28)
[2018-02-20] MEDS: PANTOPRAZOLE 40 MG TABLET (FP) PO SCH (09:32)
[2018-02-20] MEDS: ASPIRIN COATED 81 MG TABLET.EC PO SCH (09:34)
[2018-02-20] MEDS: amLODIPine BESYLATE 5 MG TABLET (FP) PO SCH (09:34)
[2018-02-20] MEDS: LABETALOL HCL 200 MG TABLET (FP) PO SCH ×2 (09:36→21:27)
[2018-02-20] MEDS: MULTIVITAMINS THER W-MINERALS COMBO TABLET (FP) PO SCH (09:37)
[2018-02-20] MEDS: levETIRAcetam 500 MG TABLET (FP) PO SCH ×2 (09:37→21:28)
[2018-02-20] MEDS: CITALOPRAM HYDROBROMIDE 10 MG TABLET (FP) PO SCH (09:39)
[2018-02-20 11:03] LABS: ANISOCYTOSIS 2+; MACROCYTOSIS 0; PLATELET ESTIMATE NORMAL
--- NOTE | 2018-02-20 13:52 | PN ---
Progress Note, Physician History of Present Illness: Pt seen and examined at bedside. She denies shortness of breath. She is making urine. - Current Medication List Current Medications: Active Medications Albuterol Sulfate (Ventolin 0.5% -) 1 amp NEB Q4H PRN PRN Reason: SHORT OF BREATH/WHEEZING Last Admin: 02/19/18 21:09 Dose: 1 amp Amlodipine Besylate (Norvasc -) 5 mg PO DAILY [facility] Last Admin: 02/20/18 09:34 Dose: 5 mg Aspirin (Ecotrin -) 81 mg PO DAILY [facility] Last Admin: 02/20/18 09:34 Dose: 81 mg Citalopram Hydrobromide (Celexa -) 10 mg PO DAILY [facility] Last Admin: 02/20/18 09:39 Dose: 10 mg Guaifenesin (Robitussin -) 10 ml PO Q8H PRN PRN Reason: COUGH Last Admin: 02/19/18 21:14 Dose: 10 ml Heparin Sodium (Porcine) (Heparin -) 5,000 unit SQ TID [facility] Last Admin: 02/20/18 06:55 Dose: 5,000 unit Piperacillin Sod/Tazobactam (Sod 2.25 gm/ Dextrose) 100 mls @ 200 mls/hr IVPB Q8H-IV [facility]; Protocol Last Admin: 02/20/18 09:38 Dose: 200 mls/hr Labetalol HCl (Normodyne -) 300 mg PO BID [facility] Last Admin: 02/20/18 09:36 Dose: 300 mg Levetiracetam (Keppra -) 500 mg PO BID [facility] Last Admin: 02/20/18 09:37 Dose: 500 mg Loperamide HCl (Imodium -) 2 mg PO Q8H PRN PRN Reason: DIARRHEA Last Admin: 02/20/18 09:32 Dose: 2 mg Multivitamins/Minerals (Theragran-M) 1 each PO DAILY [facility] Last Admin: 02/20/18 09:37 Dose: 1 each Ondansetron HCl (Zofran Injection) 4 mg IVPB Q6H PRN PRN Reason: NAUSEA Oxycodone HCl (Roxicodone -) 10 mg PO Q4H PRN PRN Reason: PAIN LEVEL 6-10 Last Admin: 02/20/18 09:28 Dose: 10 mg Pantoprazole Sodium (Protonix -) 40 mg PO DAILY [facility] Last Admin: 02/20/18 09:32 Dose: 40 mg Sodium Bicarbonate (Sodium Bicarbonate -) 650 mg PO TID [facility] Last Admin: 02/20/18 06:55 Dose: 650 mg - Objective Vital Signs: Vital Signs Temperature 97.9 F 02/20/18 05:17 Pulse Rate 69 02/20/18 05:17 Respiratory Rate 20 02/20/18 05:17 Blood Pressure 158/77 02/20/18 05:17 O2 Sat by Pulse Oximetry (%) 94 L 02/19/18 21:00 Constitutional: Yes: Calm Eyes: Yes: Conjunctiva Clear HENT: Yes: Atraumatic Neck: Yes: Supple Cardiovascular: Yes: S1, S2 Respiratory: Yes: CTA Bilaterally, On Nasal O2 Gastrointestinal: Yes: Soft Genitourinary: Yes: Kilpatrick Present Musculoskeletal: Yes: WNL Edema: Yes Edema: LLE: Trace, RLE: Trace Neurological: Yes: Oriented Psychiatric: Yes: Oriented Labs: CBC, BMP 02/20/18 06:00 02/20/18 06:00 INR, PTT INR 1.13 (0.83-1.09) H 02/11/18 19:50 Problem List - Problems (1) QUINTEN (acute kidney injury) Code(s): N17.9 - ACUTE KIDNEY FAILURE, UNSPECIFIED (2) Elevated liver enzymes Code(s): R74.8 - ABNORMAL LEVELS OF OTHER SERUM ENZYMES (3) Rhabdomyolysis Code(s): M62.82 - RHABDOMYOLYSIS Assessment/Plan Current Medications Generic Name Dose Route Start Last Admin Trade Name Freq PRN Reason Stop Dose Admin Albuterol Sulfate 1 amp 02/17/18 20:00 02/19/18 21:09 Ventolin 0.5% - NEB 1 amp Q4H PRN Administration SHORT OF BREATH/WHEEZING Amlodipine Besylate 5 mg 02/18/18 10:00 02/20/18 09:34 Norvasc - PO 5 mg DAILY [facility] Administration Aspirin 81 mg 02/18/18 10:00 02/20/18 09:34 Ecotrin - PO 81 mg DAILY [facility] Administration Citalopram Hydrobromide 10 mg 02/18/18 10:00 02/20/18 09:39 Celexa - PO 10 mg DAILY [facility] Administration Guaifenesin 10 ml 02/19/18 14:25 02/19/18 21:14 Robitussin - PO 10 ml Q8H PRN Administration COUGH Heparin Sodium (Porcine) 5,000 unit 02/17/18 22:00 02/20/18 06:55 Heparin - SQ 5,000 unit TID [facility] Administration Piperacillin Sod/Tazobactam 100 mls @ 200 mls/hr 02/18/18 20:00 02/20/18 09: 38 Sod 2.25 gm/ Dextrose IVPB 200 mls/hr Q8H-IV [facility] Administration Protocol Labetalol HCl 300 mg 02/17/18 22:00 02/20/18 09:36 Normodyne - PO 300 mg BID [facility] Administration Levetiracetam 500 mg 02/17/18 22:00 02/20/18 09:37 Keppra - PO 500 mg BID [facility] Administration Loperamide HCl 2 mg 02/17/18 16:07 02/20/18 09:32 Imodium - PO 2 mg Q8H PRN Administration DIARRHEA Multivitamins/Minerals 1 each 02/18/18 10:00 02/20/18 09:37 Theragran-M PO 1 each DAILY [facility] Administration Ondansetron HCl 4 mg 02/17/18 20:00 Zofran Injection IVPB Q6H PRN NAUSEA Oxycodone HCl 10 mg 02/17/18 20:00 02/20/18 09:28 Roxicodone - PO 10 mg Q4H PRN Administration PAIN LEVEL 6-10 Pantoprazole Sodium 40 mg 02/18/18 10:00 02/20/18 09:32 Protonix - PO 40 mg DAILY [facility] Administration Sodium Bicarbonate 650 mg 02/17/18 15:30 02/20/18 06:55 Sodium Bicarbonate - PO 650 mg TID [facility] Administration Laboratory Tests 02/12/18 02/13/18 02/16/18 05:30 05:30 16:00 LIANET Screen Negative c-ANCA <1:20 Proteinase 3 (PR3) <3.5 p-ANCA <1:20 Atypical p-ANCA <1:20 Myeloperoxidase Ab <9.0 Double Strand DNA Ab <1 Smooth Musc &[employer] Intrp 3 Glomerular Base Memb Ab 5 Hep Bs Antigen Negative Hep B Core IgM Ab Negative Hepatitis C Antibody <0.1 Impression 1. QUINTEN 2. Rhabdo 3. acidosis 4. transaminitis 5. altered mental status 6. overdose - opioid 7. sepsis 8. hypotension Plan - replace potassium - renal function is improving - will decrease dose of bicarb - hold off lasix for now - serologies negative so far - repeat labs in am - monitor urine output Dr Macario
[2018-02-20] MEDS ORDERED: POTASSIUM CHLORIDE TABS 20 MEQ TABLET.ER (FP) PO ONE (14:45)
[2018-02-20] MEDS: guaiFENesin 200 MG/10 ML 10 ML UNIT-DOSE CUPS PO PRN (21:28)
[2018-02-21] MEDS ORDERED: PIPERACILLIN/TAZOBACTAM 2.25 GM VIAL IVPB ONE ×4 (00:50→18:01)
[2018-02-21] MEDS ORDERED: DEXTROSE 5%-WATER 100 ML IVPB ONE ×4 (00:50→18:01)
[2018-02-21] MEDS: oxyCODONE HCL 5 MG TABLET PO PRN ×5 (01:29→19:59)
[2018-02-21] MEDS: PIPERACILLIN/TAZOB 2.25 GM 2.25 GM in DEXTROSE 5%-WATER 100 ML IVPB SCH ×3 (01:29→18:02)
[2018-02-21] MEDS: HEPARIN NA (PORCINE) 5,000 UNITS/ML 1ML VIAL SQ SCH ×4 (01:30→22:22)
[2018-02-21 07:19] LABS: ANION GAP 14 MMOL/L (8-16); BLOOD UREA NITROGEN 42 mg/dL (7-18); CALCIUM 7.6 mg/dL (8.5-10.1); CHLORIDE 111 mmol/L (98-107); CO2 21 mmol/L (21-32); CREATININE 3.7 mg/dL (0.55-1.02); GLUCOSE,RANDOM 108 mg/dL (74-106); MAGNESIUM 1.6 mg/dL (1.8-2.4); POTASSIUM 3.1 mmol/L (3.5-5.1); SODIUM 146 mmol/L (136-145)
[2018-02-21] MEDS ORDERED: POTASSIUM CHLORIDE TABS 20 MEQ TABLET.ER (FP) PO ONE (07:47)
[2018-02-21] MEDS ORDERED: MAGNESIUM SULF 50% (8.12 MEQ/2 ML-1 GM VIAL) IVPB ONE (07:48)
[2018-02-21] MEDS: KCL 10 MEQ IVPB 10 MEQ/100 ML INFUS.BAG IVPB SCH ×2 (09:25→13:31)
[2018-02-21] MEDS ORDERED: SODIUM BICARBONATE 650 MG TABLET PO SCH (10:00)
[2018-02-21] MEDS: MULTIVITAMINS THER W-MINERALS COMBO TABLET (FP) PO SCH (10:28)
[2018-02-21] MEDS: LOPERAMIDE HCL 2 MG CAPSULE PO PRN ×2 (10:28→19:59)
[2018-02-21] MEDS: LABETALOL HCL 200 MG TABLET (FP) PO SCH ×2 (10:29→22:19)
[2018-02-21] MEDS: CITALOPRAM HYDROBROMIDE 10 MG TABLET (FP) PO SCH (10:30)
[2018-02-21] MEDS: levETIRAcetam 500 MG TABLET (FP) PO SCH ×2 (10:31→22:19)
[2018-02-21] MEDS: PANTOPRAZOLE 40 MG TABLET (FP) PO SCH (10:31)
[2018-02-21] MEDS: amLODIPine BESYLATE 5 MG TABLET (FP) PO SCH (10:31)
[2018-02-21] MEDS: ASPIRIN COATED 81 MG TABLET.EC PO SCH (10:31)
[2018-02-21] MEDS: LACTOBACILLUS ACIDOPHILUS 1 TABLET PO SCH ×2 (10:34→22:20)
--- NOTE | 2018-02-21 11:57 | PN ---
Physical Exam: SUBJECTIVE: Patient seen and examined at bedside. She admits she slept well last night, and admits her upper extremity strength and sensation is returned to baseline. Complains of improvement with productive cough with clear sputum, and admits her breathing is also improved. Still complains of diarrhea X2 episodes last night without malodor or gwen blood. OBJECTIVE: Vital Signs Period Temp Pulse Resp BP Sys/Gruber Pulse Ox Last 24 Hr 98.2 F-99.4 F 72-87 16-18 141-187/68-87 95 GENERAL: The patient is awake, alert, and fully oriented, in no acute distress. HEAD: Normal with no signs of trauma. EYES: PERRL, extraocular movements intact, sclera anicteric, conjunctiva clear. ENT: Oropharynx clear without exudates, moist mucous membranes. NECK: Supple without lymphadenopathy LUNGS: Faint auscultated B/L lower lung lobes. No accessory muscle use. HEART: Regular rate and rhythm, S1, S2 without murmur, rub or gallop. ABDOMEN: Soft, nontender, nondistended, normoactive bowel sounds, no guarding, no rebound, no hepatosplenomegaly. EXTREMITIES: 2+ pulses, warm, well-perfused. NEUROLOGICAL: Cranial nerves II through XII grossly intact. Normal speech. Strength RUE abduction 4/5, flexion 5/5, extension 5/5. LUE abduction 5/5, flexion 5/5, extension 5/5. Right hip flexion 5/5, knee flexion and extension 5/ 5. Left hip flexion 5/5, knee flexion and extension 5/5. Plantarflexion and dorsiflexion 5/5/ B/L PSYCH: Appropriate mood and affect upon exam today SKIN: Warm, dry, normal turgor. Laboratory Results - last 24 hr 02/21/18 06:30 Sodium 146 H Potassium 3.1 L Chloride 111 H Carbon Dioxide 21 Anion Gap 14 BUN 42 H Creatinine 3.7 H Creat Clearance w eGFR 12.37 Random Glucose 108 H Calcium 7.6 L Phosphorus 4.0 Magnesium 1.6 L Active Medications Generic Name Dose Route Start Last Admin Trade Name Freq PRN Reason Stop Dose Admin Albuterol Sulfate 1 amp 02/17/18 20:00 02/19/18 21:09 Ventolin 0.5% - NEB 1 amp Q4H PRN Administration SHORT OF BREATH/WHEEZING Amlodipine Besylate 5 mg 02/18/18 10:00 02/21/18 10:31 Norvasc - PO 5 mg DAILY [facility] Administration Aspirin 81 mg 02/18/18 10:00 02/21/18 10:31 Ecotrin - PO 81 mg DAILY [facility] Administration Cholestyramine Resin 4 gm 02/21/18 10:30 Questran Packet - PO DAILY [facility] Citalopram Hydrobromide 10 mg 02/18/18 10:00 02/21/18 10:30 Celexa - PO 10 mg DAILY [facility] Administration Guaifenesin 10 ml 02/19/18 14:25 02/20/18 21:28 Robitussin - PO 10 ml Q8H PRN Administration COUGH Heparin Sodium (Porcine) 5,000 unit 02/17/18 22:00 02/21/18 05:43 Heparin - SQ 5,000 unit TID [facility] Administration Piperacillin Sod/Tazobactam 100 mls @ 200 mls/hr 02/18/18 20:00 02/21/18 10: 31 Sod 2.25 gm/ Dextrose IVPB 200 mls/hr Q8H-IV [facility] Administration Protocol Labetalol HCl 300 mg 02/17/18 22:00 02/21/18 10:29 Normodyne - PO 300 mg BID [facility] Administration Lactobacillus Acidophilus 1 tab 02/21/18 10:30 02/21/18 10:34 Bacid - PO 1 tab BID [facility] Administration Levetiracetam 500 mg 02/17/18 22:00 02/21/18 10:31 Keppra - PO 500 mg BID [facility] Administration Loperamide HCl 2 mg 02/17/18 16:07 02/21/18 10:28 Imodium - PO 2 mg Q8H PRN Administration DIARRHEA Multivitamins/Minerals 1 each 02/18/18 10:00 02/21/18 10:28 Theragran-M PO 1 each DAILY [facility] Administration Ondansetron HCl 4 mg 02/17/18 20:00 Zofran Injection IVPB Q6H PRN NAUSEA Oxycodone HCl 10 mg 02/20/18 20:55 02/21/18 10:29 Roxicodone - PO 10 mg Q4H PRN Administration PAIN LEVEL 6-10 Pantoprazole Sodium 40 mg 02/18/18 10:00 09/02/18 10:31 Protonix - PO 40 mg DAILY [facility] Administration Potassium Chloride 40 meq 02/21/18 10:30 K-Dur - PO 02/23/18 11:00 DAILY [facility] ASSESSMENT/PLAN: 62 y/o female with opiod dependence, chronic pain, anxiety, depression, and seizure disorder presented unresponsive with a fentanyl patch in her mouth, admitted for unresponsiveness. Unresponsiveness -Likely secondary to opiod overdose as she was found with Fentanyl patch in her mouth. -Significant improvement in strength of right upper extremity and right lower extremities. As per patient returning to baseline -MRI showed right sided occipital stroke, which does not correlate with her physical exam. -MRA neck showed mild atherosclerotic narrowing at origin of left internal carotid artery. Negative for significant stenosis B/L. -Keppra 500 PO BID -CXR showed left pleural effusion, left lower lobe pneumonia with compressive atelectasis. -Doppler of lower extremeties showed no evidence of DVT B/L lower extremities. -(Dr. Colon) Infectious Disease consult appreciated: Continue Zosyn 2.25mg IVPB Q8H (day 10) -UA showed 1+ blood, 3 WBC, 1RBC, rare bacteria. -Urine cultures pending preliminary reading. Negative for Legionella antigen. Diarrhea -Stool cultures grew yeast like organism in Salmonella/ Shigella culture. -No growth in Campylobacter, Yersenia, Vibrio, E.coli 0157. -C. diff cultures negative -Immodium 2mg PO Q8H -Cholestyramine 4gm PO QD and Bacid 1 tablet BID Anxiety -Patient has history of anxiety -Patient denies suicidal or homocidal ideation today upon my encounter. -(Dr. Garza) Psychiatric consult appreciated: Will continue Celexa 10mg PO QD. Patient is not suicidal at this time as per psych. Hypokalemia -Potassium has been decreasing to 3.1 today, down from 3.3 yesterday. -Nephrology recommendation appreciated (Dr. Macario): Will replete potassium. 40mg PO K-dur QD for 3 days. -F/U CMP daily QUINTEN -Likely due to rhabdomyolisis which is resolving. -(Dr. Macario) Nephrology consult appreciated: Fluids discontinued. Patient to consider possibility of HD and renal biopsy if renal function does not improve. -Sodium Bicarb 650mg PO changed from BID to TID per nephrology -Will hold Diuresis with Lasix today per front desk administrator recommendation -Will F/U C-AnCA Antinuclear AB, Anti GBM AB, DS DNA AB NSTEMI- -Likely d/t demand ischemia -(Dr. Choi) Cardiology consult appreciated: Continue aspirin 81 -No statins d/t increased LFTs -Echo showed normal LV function with EF >70% HTN -Labetalol 300mg BID -Begin Norvasc 5gm Right lower extremity pain -Oxycontin increased to 10mg -F/U pain management consult (Dr. Chris Reese) Transaminitis: -MRCP showed distended gallbladder, dialted intrahepatic duct, dilated common bile duct, and ?stricture -(Dr. Allred/ Shonda) GI consult appreciated: Patient will benefit from UES as outpatient. -Hepatitis A,B,C serology negative Prophylaxis -Heparin 5000units TID -Protonix 40mg PO FEN -No IV fluids -Will follow BMP -Regular diet Disposition: Continue care in medical-surgical floor Visit type - Emergency Visit Emergency Visit: No - New Patient This patient is new to me today: No - Critical Care Critical Care patient: No - Discharge Referral Referred to [facility] Med P.C[facility] No
[2018-02-21] MEDS: POTASSIUM CHLORIDE TABS 20 MEQ TABLET.ER (FP) PO SCH (12:10)
[2018-02-21] MEDS: CHOLESTYRAMINE/SUCROSE 4 GM PACKET PO SCH (13:32)
--- NOTE | 2018-02-21 14:23 | PN ---
Progress Note, Physician History of Present Illness: Pt seen and examined at bedside. She complains of diarrhea. She also says she has not been eating or drinking much. - Current Medication List Current Medications: Active Medications Albuterol Sulfate (Ventolin 0.5% -) 1 amp NEB Q4H PRN PRN Reason: SHORT OF BREATH/WHEEZING Last Admin: 02/19/18 21:09 Dose: 1 amp Amlodipine Besylate (Norvasc -) 5 mg PO DAILY [facility] Last Admin: 02/21/18 10:31 Dose: 5 mg Aspirin (Ecotrin -) 81 mg PO DAILY [facility] Last Admin: 02/21/18 10:31 Dose: 81 mg Cholestyramine Resin (Questran Packet -) 4 gm PO DAILY [facility] Last Admin: 02/21/18 13:32 Dose: 4 gm Citalopram Hydrobromide (Celexa -) 10 mg PO DAILY [facility] Last Admin: 02/21/18 10:30 Dose: 10 mg Guaifenesin (Robitussin -) 10 ml PO Q8H PRN PRN Reason: COUGH Last Admin: 02/20/18 21:28 Dose: 10 ml Heparin Sodium (Porcine) (Heparin -) 5,000 unit SQ TID [facility] Last Admin: 02/21/18 05:43 Dose: 5,000 unit Piperacillin Sod/Tazobactam (Sod 2.25 gm/ Dextrose) 100 mls @ 200 mls/hr IVPB Q8H-IV [facility]; Protocol Last Admin: 02/21/18 10:31 Dose: 200 mls/hr Labetalol HCl (Normodyne -) 300 mg PO BID [facility] Last Admin: 02/21/18 10:29 Dose: 300 mg Lactobacillus Acidophilus (Bacid -) 1 tab PO BID [facility] Last Admin: 02/21/18 10:34 Dose: 1 tab Levetiracetam (Keppra -) 500 mg PO BID [facility] Last Admin: 02/21/18 10:31 Dose: 500 mg Loperamide HCl (Imodium -) 2 mg PO Q8H PRN PRN Reason: DIARRHEA Last Admin: 02/21/18 10:28 Dose: 2 mg Multivitamins/Minerals (Theragran-M) 1 each PO DAILY [facility] Last Admin: 02/21/18 10:28 Dose: 1 each Ondansetron HCl (Zofran Injection) 4 mg IVPB Q6H PRN PRN Reason: NAUSEA Oxycodone HCl (Roxicodone -) 10 mg PO Q4H PRN PRN Reason: PAIN LEVEL 6-10 Last Admin: 02/21/18 10:29 Dose: 10 mg Pantoprazole Sodium (Protonix -) 40 mg PO DAILY [facility] Last Admin: 02/21/18 10:31 Dose: 40 mg Potassium Chloride (K-Dur -) 40 meq PO DAILY [facility] Stop: 02/23/18 11:00 Last Admin: 02/21/18 12:10 Dose: 40 meq - Objective Vital Signs: Vital Signs Temperature 98.4 F 02/21/18 05:00 Pulse Rate 76 02/21/18 05:00 Respiratory Rate 18 02/21/18 05:00 Blood Pressure 187/87 02/21/18 05:00 O2 Sat by Pulse Oximetry (%) 95 02/20/18 21:00 Constitutional: Yes: Calm Eyes: Yes: Conjunctiva Clear HENT: Yes: Atraumatic Neck: Yes: Supple Cardiovascular: Yes: S1, S2 Respiratory: Yes: CTA Bilaterally, On Nasal O2 Gastrointestinal: Yes: Soft Genitourinary: Yes: Kilpatrick Present Musculoskeletal: Yes: WNL Edema: No Neurological: Yes: Oriented Psychiatric: Yes: Oriented Labs: CBC, BMP 02/20/18 06:00 02/21/18 06:30 INR, PTT INR 1.13 (0.83-1.09) H 02/11/18 19:50 Problem List - Problems (1) QUINTEN (acute kidney injury) Code(s): N17.9 - ACUTE KIDNEY FAILURE, UNSPECIFIED (2) Elevated liver enzymes Code(s): R74.8 - ABNORMAL LEVELS OF OTHER SERUM ENZYMES (3) Rhabdomyolysis Code(s): M62.82 - RHABDOMYOLYSIS Assessment/Plan Current Medications Generic Name Dose Route Start Last Admin Trade Name Freq PRN Reason Stop Dose Admin Albuterol Sulfate 1 amp 02/17/18 20:00 02/19/18 21:09 Ventolin 0.5% - NEB 1 amp Q4H PRN Administration SHORT OF BREATH/WHEEZING Amlodipine Besylate 5 mg 02/18/18 10:00 02/21/18 10:31 Norvasc - PO 5 mg DAILY [facility] Administration Aspirin 81 mg 02/18/18 10:00 02/21/18 10:31 Ecotrin - PO 81 mg DAILY [facility] Administration Cholestyramine Resin 4 gm 02/21/18 10:30 02/21/18 13:32 Questran Packet - PO 4 gm DAILY [facility] Administration Citalopram Hydrobromide 10 mg 02/18/18 10:00 02/21/18 10:30 Celexa - PO 10 mg DAILY [facility] Administration Guaifenesin 10 ml 02/19/18 14:25 02/20/18 21:28 Robitussin - PO 10 ml Q8H PRN Administration COUGH Heparin Sodium (Porcine) 5,000 unit 02/17/18 22:00 02/21/18 05:43 Heparin - SQ 5,000 unit TID [facility] Administration Piperacillin Sod/Tazobactam 100 mls @ 200 mls/hr 02/18/18 20:00 02/21/18 10: 31 Sod 2.25 gm/ Dextrose IVPB 200 mls/hr Q8H-IV [facility] Administration Protocol Labetalol HCl 300 mg 02/17/18 22:00 02/21/18 10:29 Normodyne - PO 300 mg BID [facility] Administration Lactobacillus Acidophilus 1 tab 02/21/18 10:30 02/21/18 10:34 Bacid - PO 1 tab BID [facility] Administration Levetiracetam 500 mg 02/17/18 22:00 02/21/18 10:31 Keppra - PO 500 mg BID [facility] Administration Loperamide HCl 2 mg 02/17/18 16:07 02/21/18 10:28 Imodium - PO 2 mg Q8H PRN Administration DIARRHEA Multivitamins/Minerals 1 each 02/18/18 10:00 02/21/18 10:28 Theragran-M PO 1 each DAILY [facility] Administration Ondansetron HCl 4 mg 02/17/18 20:00 Zofran Injection IVPB Q6H PRN NAUSEA Oxycodone HCl 10 mg 02/20/18 20:55 02/21/18 10:29 Roxicodone - PO 10 mg Q4H PRN Administration PAIN LEVEL 6-10 Pantoprazole Sodium 40 mg 02/18/18 10:00 02/21/18 10:31 Protonix - PO 40 mg DAILY [facility] Administration Potassium Chloride 40 meq 02/21/18 10:30 02/21/18 12:10 K-Dur - PO 02/23/18 11:00 40 meq DAILY [facility] Administration Impression 1. QUINTEN 2. Rhabdo 3. acidosis 4. transaminitis 5. altered mental status 6. overdose - opioid 7. sepsis 8. hypotension 9. diarrhea Plan - will start gentle hydration - renal function improved - diarrhea worse today, pet pt - hold off lasix - I stopped PO bicarb - serologies negative so far - repeat labs in am - monitor urine output Dr Macario
[2018-02-21] MEDS ORDERED: SODIUM CHLORIDE 0.45% 1,000 ML with POTASSIUM CHLORIDE 20 MEQ IVPB SCH (14:30)
--- NOTE | 2018-02-21 15:00 | PN ---
Teaching Attending Note Name of Resident: Melvin Dutton ATTENDING PHYSICIAN STATEMENT I saw and evaluated the patient. I reviewed the resident's note and discussed the case with the resident. I agree with the resident's findings and plan as documented. SUBJECTIVE: OBJECTIVE: Vital Signs Temperature 98.2 F 02/21/18 09:00 Pulse Rate 75 02/21/18 09:00 Respiratory Rate 18 02/21/18 09:00 Blood Pressure 185/80 02/21/18 09:00 O2 Sat by Pulse Oximetry (%) 89 L 02/21/18 09:00 CBCD WBC 11.2 K/mm3 (4.0-10.0) H 02/20/18 06:00 RBC 3.10 M/mm3 (3.60-5.2) L 02/20/18 06:00 Hgb 9.9 GM/dL (10.7-15.3) L 02/20/18 06:00 Hct 29.6 % (32.4-45.2) L 02/20/18 06:00 MCV 95.5 fl (80-96) 02/20/18 06:00 MCHC 33.5 g/dl (32.0-36.0) 02/20/18 06:00 RDW 15.6 % (11.6-15.6) 02/20/18 06:00 Plt Count 238 K/MM3 (134-434) 02/20/18 06:00 MPV 8.7 fl (7.5-11.1) 02/20/18 06:00 CMP Sodium 146 mmol/L (136-145) H 02/21/18 06:30 Potassium 3.1 mmol/L (3.5-5.1) L 02/21/18 06:30 Chloride 111 mmol/L (98-107) H 02/21/18 06:30 Carbon Dioxide 21 mmol/L (21-32) 02/21/18 06:30 Anion Gap 14 MMOL/L (8-16) 02/21/18 06:30 BUN 42 mg/dL (7-18) H 02/21/18 06:30 Creatinine 3.7 mg/dL (0.55-1.02) H 02/21/18 06:30 Creat Clearance w eGFR 12.37 (>60) 02/21/18 06:30 Random Glucose 108 mg/dL (74-106) H 02/21/18 06:30 Calcium 7.6 mg/dL (8.5-10.1) L 02/21/18 06:30 Total Bilirubin 0.8 mg/dL (0.2-1.0) 02/20/18 06:00 AST 21 U/L (15-37) 02/20/18 06:00 ALT 107 U/L (12-78) H 02/20/18 06:00 Alkaline Phosphatase 63 U/L (45-117) 02/20/18 06:00 Total Protein 5.3 g/dl (6.4-8.2) L 02/20/18 06:00 Albumin 2.1 g/dl (3.4-5.0) L 02/20/18 06:00 CARDIAC ENZYMES Creatine Kinase 289 IU/L (26-192) H 02/16/18 05:30 Troponin I 5.73 ng/ml (0.00-0.05) H* 02/13/18 05:30 Current Medications Generic Name Dose Route Start Last Admin Trade Name Freq PRN Reason Stop Dose Admin Albuterol Sulfate 1 amp 02/17/18 20:00 02/19/18 21:09 Ventolin 0.5% - NEB 1 amp Q4H PRN Administration SHORT OF BREATH/WHEEZING Amlodipine Besylate 5 mg 02/18/18 10:00 02/21/18 10:31 Norvasc - PO 5 mg DAILY [facility] Administration Aspirin 81 mg 02/18/18 10:00 02/21/18 10:31 Ecotrin - PO 81 mg DAILY [facility] Administration Cholestyramine Resin 4 gm 02/21/18 10:30 02/21/18 13:32 Questran Packet - PO 4 gm DAILY [facility] Administration Citalopram Hydrobromide 10 mg 02/18/18 10:00 02/21/18 10:30 Celexa - PO 10 mg DAILY [facility] Administration Guaifenesin 10 ml 02/19/18 14:25 02/20/18 21:28 Robitussin - PO 10 ml Q8H PRN Administration COUGH Heparin Sodium (Porcine) 5,000 unit 02/17/18 22:00 02/21/18 14:52 Heparin - SQ 5,000 unit TID [facility] Administration Piperacillin Sod/Tazobactam 100 mls @ 200 mls/hr 02/18/18 20:00 02/21/18 10: 31 Sod 2.25 gm/ Dextrose IVPB 200 mls/hr Q8H-IV [facility] Administration Protocol Potassium Chloride 20 meq/ 1,010 mls @ 65 mls/hr 02/21/18 14:30 Sodium Chloride IVPB 02/22/18 02:29 ASDIR [facility] Labetalol HCl 300 mg 02/17/18 22:00 02/21/18 10:29 Normodyne - PO 300 mg BID [facility] Administration Lactobacillus Acidophilus 1 tab 02/21/18 10:30 02/21/18 10:34 Bacid - PO 1 tab BID [facility] Administration Levetiracetam 500 mg 02/17/18 22:00 02/21/18 10:31 Keppra - PO 500 mg BID [facility] Administration Loperamide HCl 2 mg 02/17/18 16:07 02/21/18 10:28 Imodium - PO 2 mg Q8H PRN Administration DIARRHEA Multivitamins/Minerals 1 each 02/18/18 10:00 02/21/18 10:28 Theragran-M PO 1 each DAILY [facility] Administration Ondansetron HCl 4 mg 02/17/18 20:00 Zofran Injection IVPB Q6H PRN NAUSEA Oxycodone HCl 10 mg 02/20/18 20:55 02/21/18 14:48 Roxicodone - PO 10 mg Q4H PRN Administration PAIN LEVEL 6-10 Pantoprazole Sodium 40 mg 02/18/18 10:00 02/21/18 10:31 Protonix - PO 40 mg DAILY [facility] Administration Potassium Chloride 40 meq 02/21/18 10:30 02/21/18 12:10 K-Dur - PO 02/23/18 11:00 40 meq DAILY [facility] Administration Home Medications Medication Instructions Recorded Citalopram Hydrobromide [Celexa -] 10 mg PO DAILY #14 tablet 06/09/17 Gabapentin 800 mg PO TID 02/12/18 oxyCODONE HCL [Roxicodone -] 10 mg PO Q6H PRN MDD 40 02/12/18 ASSESSMENT AND PLAN: Patient is a 62yo female with PMHx of chronic opioids use, possible seizure disorder due to opioids withdrawel, anxiety, depression and panic attacks who was brought in to ED since was found to be unresponsive. # QUINTEN improving today: (Cr.5.9-->5.5-->4.7-->3.7 today) Possible due to ATN from transient hypotension /sepsis/Rhabdo . Urine output is improving . off IVF due to volume overload , further management as per nephro. Lasix as needed per nephro. # S/p of Opioid Overdose was found to be unresponsive resolved , patient is awake and alert #Diarrhea: on Imodium continue will add cholestyramine 4gm # Right occipital stroke : on ASA, can't give statin due to having rhabdo who presented with RF, MRA of neck with no significant stenosis #Seizure disorder on Keppra continue # HTN Uncontrolled : On labetalol and wiil increase Norvasc 10mg # Rhabdomyolysis: CPK improved , can't give statins due to Rhabdo.and Kidney function to improve # acute hypoxic resp failure most likely due to opoiod OD # Transaminitis :possible stricture on MRCP. LFTS improved. Gi follow up as out pt # s/p Sepsis : unclear source.. blood cx and stool cx neg. On zosyn , no growth so far # S/p Normal AG Metabolic acidosis : likely due renal failure and diarrhea. # NSTEMI: possible due to demand ischemia on ASA, can't give statins due to renal failure - echo normal LV function - noted to have bloody BM, blood on rectal exam , deferring heparin gtt and plavix - on aspirin 81 mg daily, deferring statin due to elevated LFTs and Rhabdo. - will need ischemic eval after acute issues resolved # Rectal bleed : ischemic vs internal hemorrhoids. resolved . hemoglobin stable. # chronic back pain , oxy at increased dose. will not resume Fentanyl patch . Pain management consult. DVT Px: heparin Robitussin for Cough.
[2018-02-21] MEDS ORDERED: amLODIPine BESYLATE 5 MG TABLET (FP) PO ONE (16:00)
[2018-02-21] MEDS: ALBUTEROL SO4 0.5 % INH SOLN 2.5 MG/0.5 ML VIAL.NEB. NEB PRN (20:21)
[2018-02-22] MEDS: oxyCODONE HCL 5 MG TABLET PO PRN ×6 (00:49→22:10)
[2018-02-22] MEDS ORDERED: PIPERACILLIN/TAZOBACTAM 2.25 GM VIAL IVPB ONE ×2 (01:21→09:33)
[2018-02-22] MEDS ORDERED: DEXTROSE 5%-WATER 100 ML IVPB ONE ×2 (01:22→09:33)
[2018-02-22] MEDS: PIPERACILLIN/TAZOB 2.25 GM 2.25 GM in DEXTROSE 5%-WATER 100 ML IVPB SCH ×2 (02:09→09:36)
[2018-02-22] MEDS: HEPARIN NA (PORCINE) 5,000 UNITS/ML 1ML VIAL SQ SCH ×3 (05:21→22:10)
[2018-02-22] MEDS: LOPERAMIDE HCL 2 MG CAPSULE PO PRN (05:21)
[2018-02-22] MEDS: guaiFENesin 200 MG/10 ML 10 ML UNIT-DOSE CUPS PO PRN ×2 (05:23→16:50)
[2018-02-22 08:23] LABS: BASO % 1.1 % (0-2.0); HEMATOCRIT 31.3 % (32.4-45.2); HEMOGLOBIN 10.3 GM/dL (10.7-15.3); LYMPH % 12.3 % (8-40); MCH 31.3 pg (25.7-33.7); MCHC 32.8 g/dl (32.0-36.0); MEAN CELL VOLUME 95.4 fl (80-96); MONO % 6.5 % (3.8-10.2); NEUT % 77.1 % (42.8-82.8); PLATELET COUNT 326 K/MM3 (134-434); RBC 3.28 M/mm3 (3.60-5.2); RDW 15.4 % (11.6-15.6); WHITE BLOOD COUNT 13.9 K/mm3 (4.0-10.0)
[2018-02-22 08:56] LABS: ALBUMIN 2.3 g/dl (3.4-5.0); ANION GAP 13 MMOL/L (8-16); BILIRUBIN,TOTAL 0.8 mg/dL (0.2-1.0); BLOOD UREA NITROGEN 31 mg/dL (7-18); CALCIUM 7.8 mg/dL (8.5-10.1); CHLORIDE 111 mmol/L (98-107); CO2 22 mmol/L (21-32); CREATININE 2.6 mg/dL (0.55-1.02); GLUCOSE,RANDOM 91 mg/dL (74-106); MAGNESIUM 1.7 mg/dL (1.8-2.4); POTASSIUM 3.7 mmol/L (3.5-5.1); SGOT/AST 19 U/L (15-37); SGPT/ALT 69 U/L (12-78); SODIUM 146 mmol/L (136-145); TOT PROT 5.8 g/dl (6.4-8.2)
[2018-02-22 08:57] LABS: ALK PHOS 62 U/L (45-117)
[2018-02-22] MEDS: LABETALOL HCL 200 MG TABLET (FP) PO SCH ×2 (09:35→22:10)
[2018-02-22] MEDS: levETIRAcetam 500 MG TABLET (FP) PO SCH ×2 (09:35→22:10)
[2018-02-22] MEDS: LACTOBACILLUS ACIDOPHILUS 1 TABLET PO SCH ×2 (09:35→22:09)
[2018-02-22] MEDS: ASPIRIN COATED 81 MG TABLET.EC PO SCH (09:35)
[2018-02-22] MEDS: POTASSIUM CHLORIDE TABS 20 MEQ TABLET.ER (FP) PO SCH (09:35)
[2018-02-22] MEDS: CITALOPRAM HYDROBROMIDE 10 MG TABLET (FP) PO SCH (09:35)
[2018-02-22] MEDS: PANTOPRAZOLE 40 MG TABLET (FP) PO SCH (09:35)
[2018-02-22] MEDS: MULTIVITAMINS THER W-MINERALS COMBO TABLET (FP) PO SCH (09:37)
[2018-02-22] MEDS: amLODIPine BESYLATE 10 MG TABLET (FP) PO SCH (09:37)
--- NOTE | 2018-02-22 12:27 | PN ---
Progress Note, Physician History of Present Illness: Pt seen and examined at bedside. She is awake and appears comfortable. She does complain of diarrhea at times. - Current Medication List Current Medications: Active Medications Albuterol Sulfate (Ventolin 0.5% -) 1 amp NEB Q4H PRN PRN Reason: SHORT OF BREATH/WHEEZING Last Admin: 02/21/18 20:21 Dose: 1 amp Amlodipine Besylate (Norvasc -) 10 mg PO DAILY [facility] Last Admin: 02/22/18 09:37 Dose: 10 mg Aspirin (Ecotrin -) 81 mg PO DAILY [facility] Last Admin: 02/22/18 09:35 Dose: 81 mg Cholestyramine Resin (Questran Packet -) 4 gm PO DAILY [facility] Last Admin: 02/21/18 13:32 Dose: 4 gm Citalopram Hydrobromide (Celexa -) 10 mg PO DAILY [facility] Last Admin: 02/22/18 09:35 Dose: 10 mg Guaifenesin (Robitussin -) 10 ml PO Q8H PRN PRN Reason: COUGH Last Admin: 02/22/18 05:23 Dose: 10 ml Heparin Sodium (Porcine) (Heparin -) 5,000 unit SQ TID [facility] Last Admin: 02/22/18 05:21 Dose: 5,000 unit Piperacillin Sod/Tazobactam (Sod 2.25 gm/ Dextrose) 100 mls @ 200 mls/hr IVPB Q8H-IV [facility]; Protocol Last Admin: 02/22/18 09:36 Dose: 200 mls/hr Labetalol HCl (Normodyne -) 300 mg PO BID [facility] Last Admin: 02/22/18 09:35 Dose: 300 mg Lactobacillus Acidophilus (Bacid -) 1 tab PO BID [facility] Last Admin: 02/22/18 09:35 Dose: 1 tab Levetiracetam (Keppra -) 500 mg PO BID [facility] Last Admin: 02/22/18 09:35 Dose: 500 mg Loperamide HCl (Imodium -) 2 mg PO Q8H PRN PRN Reason: DIARRHEA Last Admin: 02/22/18 05:21 Dose: 2 mg Multivitamins/Minerals (Theragran-M) 1 each PO DAILY [facility] Last Admin: 02/22/18 09:37 Dose: 1 each Ondansetron HCl (Zofran Injection) 4 mg IVPB Q6H PRN PRN Reason: NAUSEA Oxycodone HCl (Roxicodone -) 10 mg PO Q4H PRN PRN Reason: PAIN LEVEL 6-10 Last Admin: 02/22/18 09:36 Dose: 10 mg Pantoprazole Sodium (Protonix -) 40 mg PO DAILY [facility] Last Admin: 02/22/18 09:35 Dose: 40 mg Potassium Chloride (K-Dur -) 40 meq PO DAILY [facility] Stop: 02/23/18 11:00 Last Admin: 02/22/18 09:35 Dose: 40 meq - Objective Vital Signs: Vital Signs Temperature 98.3 F 02/22/18 06:00 Pulse Rate 70 02/22/18 06:00 Respiratory Rate 18 02/22/18 06:00 Blood Pressure 160/67 02/22/18 06:00 O2 Sat by Pulse Oximetry (%) 89 L 02/21/18 21:00 Constitutional: Yes: Calm Eyes: Yes: Conjunctiva Clear HENT: Yes: Atraumatic Neck: Yes: Supple Cardiovascular: Yes: S1, S2 Respiratory: Yes: CTA Bilaterally Gastrointestinal: Yes: Soft Genitourinary: Yes: WNL Musculoskeletal: Yes: WNL Edema: No Neurological: Yes: Oriented Psychiatric: Yes: Oriented Labs: CBC, BMP 02/22/18 07:35 02/22/18 07:35 INR, PTT INR 1.13 (0.83-1.09) H 02/11/18 19:50 Problem List - Problems (1) QUINTEN (acute kidney injury) Code(s): N17.9 - ACUTE KIDNEY FAILURE, UNSPECIFIED (2) Elevated liver enzymes Code(s): R74.8 - ABNORMAL LEVELS OF OTHER SERUM ENZYMES (3) Rhabdomyolysis Code(s): M62.82 - RHABDOMYOLYSIS Assessment/Plan Current Medications Generic Name Dose Route Start Last Admin Trade Name Freq PRN Reason Stop Dose Admin Albuterol Sulfate 1 amp 02/17/18 20:00 02/21/18 20:21 Ventolin 0.5% - NEB 1 amp Q4H PRN Administration SHORT OF BREATH/WHEEZING Amlodipine Besylate 10 mg 02/21/18 15:33 02/22/18 09:37 Norvasc - PO 10 mg DAILY [facility] Administration Aspirin 81 mg 02/18/18 10:00 02/22/18 09:35 Ecotrin - PO 81 mg DAILY [facility] Administration Cholestyramine Resin 4 gm 02/21/18 10:30 02/21/18 13:32 Questran Packet - PO 4 gm DAILY [facility] Administration Citalopram Hydrobromide 10 mg 02/18/18 10:00 02/22/18 09:35 Celexa - PO 10 mg DAILY [facility] Administration Guaifenesin 10 ml 02/19/18 14:25 02/22/18 05:23 Robitussin - PO 10 ml Q8H PRN Administration COUGH Heparin Sodium (Porcine) 5,000 unit 02/17/18 22:00 02/22/18 05:21 Heparin - SQ 5,000 unit TID [facility] Administration Piperacillin Sod/Tazobactam 100 mls @ 200 mls/hr 02/18/18 20:00 02/22/18 09: 36 Sod 2.25 gm/ Dextrose IVPB 200 mls/hr Q8H-IV [facility] Administration Protocol Labetalol HCl 300 mg 02/17/18 22:00 02/22/18 09:35 Normodyne - PO 300 mg BID [facility] Administration Lactobacillus Acidophilus 1 tab 02/21/18 10:30 02/22/18 09:35 Bacid - PO 1 tab BID [facility] Administration Levetiracetam 500 mg 02/17/18 22:00 02/22/18 09:35 Keppra - PO 500 mg BID [facility] Administration Loperamide HCl 2 mg 02/17/18 16:07 02/22/18 05:21 Imodium - PO 2 mg Q8H PRN Administration DIARRHEA Multivitamins/Minerals 1 each 02/18/18 10:00 02/22/18 09:37 Theragran-M PO 1 each DAILY [facility] Administration Ondansetron HCl 4 mg 02/17/18 20:00 Zofran Injection IVPB Q6H PRN NAUSEA Oxycodone HCl 10 mg 02/20/18 20:55 02/22/18 09:36 Roxicodone - PO 10 mg Q4H PRN Administration PAIN LEVEL 6-10 Pantoprazole Sodium 40 mg 02/18/18 10:00 02/22/18 09:35 Protonix - PO 40 mg DAILY [facility] Administration Potassium Chloride 40 meq 02/21/18 10:30 02/22/18 09:35 K-Dur - PO 02/23/18 11:00 40 meq DAILY [facility] Administration Impression 1. QUINTEN 2. Rhabdo 3. acidosis 4. transaminitis 5. altered mental status 6. overdose - opioid 7. sepsis 8. hypotension 9. diarrhea Plan - renal function is improving - repeat labs in am - pt tolerated fluids overnight - encourage free water intake - hold off lasix - serologies negative so far - repeat labs in am - monitor urine output Dr Macario
[2018-02-22] MEDS ORDERED: MAGNESIUM SULF 50% (8.12 MEQ/2 ML-1 GM VIAL) IVPB ONE (12:45)
[2018-02-22] MEDS: POTASSIUM CHLORIDE 20 MEQ in DEXTROSE 5%-WATER - 1,000 ML IVPB SCH (13:35)
--- NOTE | 2018-02-22 15:25 | PN ---
Progress Note (short form) - Note Progress Note: awake less cough Vital Signs Period Temp Pulse Resp BP Sys/Gruber Pulse Ox Last 24 Hr 97.4 F-99.3 F 70-76 18-18 151-177/65-91 89 cor-rrr lungs bilateral rhonchi abd soft,nt ext no edema +frazier CBC, BMP 02/22/18 07:35 02/22/18 07:35 Microbiology 02/17/18 10:44 Urine - Urine Frazier Urine Culture - Final Yeast Like Organism 02/11/18 19:50 Blood - Peripheral Venous Blood Culture - Final NO GROWTH AFTER 5 DAYS INCUBATION 02/11/18 19:50 Blood - Peripheral Venous Blood Culture - Final NO GROWTH AFTER 5 DAYS INCUBATION 02/16/18 06:00 Urine For Antigen Detection Legionella Antigen - Final 02/16/18 06:00 Urine For Antigen Detection Streptococcus pneumoniae Antigen (M - Final 02/13/18 11:20 Stool Salmonella/Shigella Culture - Final Yeast Like Organism 02/13/18 11:20 Stool Campylobacter Culture - Final NO GROWTH OF CAMPYLOBACTER SPECIES OBTAINED 02/13/18 11:20 Stool Yersinia Culture - Final NO GROWTH OF YERSINIA SPECIES OBTAINED 02/13/18 11:20 Stool Vibrio Culture - Final NO GROWTH OF VIBRIO SPECIES OBTAINED 02/13/18 11:20 Stool Escherichia coli 0157 Culture - Final NO GROWTH OF E COLI 0157 OBTAINED 02/13/18 11:20 Stool Gram Stain - Final 02/13/18 08:40 Urine - Urine Frazire Urine Culture - Final NO GROWTH OBTAINED 02/13/18 11:20 Stool Clostridium difficile Antigen (CHRISTINA) - Final 02/13/18 11:20 Stool Clostridium difficile Toxin Assay - Final 02/11/18 21:35 Urine - Urine - Catheterized Urine Culture - Final NO GROWTH OBTAINED a/p probable overdose/?cva NSTEMI ?ischemic colitis QUINTEN rahabdomyolysis leukocytosis-LLL pneumonia/with effusion- day #10 antibiotics- can d/c and observe consider d/c frazier Problem List - Problems (1) Overdose Code(s): T50.901A - POISONING BY UNSP DRUG/MEDS/BIOL SUBST, ACCIDENTAL, INIT Qualifiers: Encounter type: initial encounter Injury intent: undetermined intent Qualified Code(s): T50.904A - Poisoning by unspecified drugs, medicaments and biological substances, undetermined, initial encounter (2) Transaminitis Code(s): R74.0 - NONSPEC ELEV OF LEVELS OF TRANSAMNS & LACTIC ACID DEHYDRGNSE (3) Ischemic colitis, enteritis, or enterocolitis Code(s): K55.9 - VASCULAR DISORDER OF INTESTINE, UNSPECIFIED (4) QUINTEN (acute kidney injury) Code(s): N17.9 - ACUTE KIDNEY FAILURE, UNSPECIFIED (5) Rhabdomyolysis Code(s): M62.82 - RHABDOMYOLYSIS (6) NSTEMI (non-ST elevated myocardial infarction) Code(s): I21.4 - NON-ST ELEVATION (NSTEMI) MYOCARDIAL INFARCTION
[2018-02-22] MEDS: CHOLESTYRAMINE/SUCROSE 4 GM PACKET PO SCH (15:52)
--- NOTE | 2018-02-22 18:42 | PN ---
Progress Note (short form) - Note Progress Note: patient is comfortable with no acute distress. Vital Signs Temperature 98.6 F 02/22/18 14:58 Pulse Rate 76 02/22/18 14:58 Respiratory Rate 18 02/22/18 14:58 Blood Pressure 177/91 02/22/18 14:58 O2 Sat by Pulse Oximetry (%) 89 L 02/21/18 21:00 CBCD WBC 13.9 K/mm3 (4.0-10.0) H 02/22/18 07:35 RBC 3.28 M/mm3 (3.60-5.2) L 02/22/18 07:35 Hgb 10.3 GM/dL (10.7-15.3) L 02/22/18 07:35 Hct 31.3 % (32.4-45.2) L 02/22/18 07:35 MCV 95.4 fl (80-96) 02/22/18 07:35 MCHC 32.8 g/dl (32.0-36.0) 02/22/18 07:35 RDW 15.4 % (11.6-15.6) 02/22/18 07:35 Plt Count 326 K/MM3 (134-434) D 02/22/18 07:35 MPV 9.0 fl (7.5-11.1) 02/22/18 07:35 CMP Sodium 146 mmol/L (136-145) H 02/22/18 07:35 Potassium 3.7 mmol/L (3.5-5.1) 02/22/18 07:35 Chloride 111 mmol/L (98-107) H 02/22/18 07:35 Carbon Dioxide 22 mmol/L (21-32) 02/22/18 07:35 Anion Gap 13 MMOL/L (8-16) 02/22/18 07:35 BUN 31 mg/dL (7-18) H 02/22/18 07:35 Creatinine 2.6 mg/dL (0.55-1.02) H 02/22/18 07:35 Creat Clearance w eGFR 18.59 (>60) 02/22/18 07:35 Random Glucose 91 mg/dL (74-106) 02/22/18 07:35 Calcium 7.8 mg/dL (8.5-10.1) L 02/22/18 07:35 Total Bilirubin 0.8 mg/dL (0.2-1.0) 02/22/18 07:35 AST 19 U/L (15-37) 02/22/18 07:35 ALT 69 U/L (12-78) 02/22/18 07:35 Alkaline Phosphatase 62 U/L (45-117) 02/22/18 07:35 Total Protein 5.8 g/dl (6.4-8.2) L 02/22/18 07:35 Albumin 2.3 g/dl (3.4-5.0) L 02/22/18 07:35 CARDIAC ENZYMES Creatine Kinase 289 IU/L (26-192) H 02/16/18 05:30 Troponin I 5.73 ng/ml (0.00-0.05) H* 02/13/18 05:30 Current Medications Generic Name Dose Route Start Last Admin Trade Name Freq PRN Reason Stop Dose Admin Albuterol Sulfate 1 amp 02/17/18 20:00 02/21/18 20:21 Ventolin 0.5% - NEB 1 amp Q4H PRN Administration SHORT OF BREATH/WHEEZING Amlodipine Besylate 10 mg 02/21/18 15:33 02/22/18 09:37 Norvasc - PO 10 mg DAILY [facility] Administration Aspirin 81 mg 02/18/18 10:00 02/22/18 09:35 Ecotrin - PO 81 mg DAILY [facility] Administration Cholestyramine Resin 4 gm 02/21/18 10:30 02/22/18 15:52 Questran Packet - PO 4 gm DAILY [facility] Administration Citalopram Hydrobromide 10 mg 02/18/18 10:00 02/22/18 09:35 Celexa - PO 10 mg DAILY [facility] Administration Guaifenesin 10 ml 02/19/18 14:25 02/22/18 16:50 Robitussin - PO 10 ml Q8H PRN Administration COUGH Heparin Sodium (Porcine) 5,000 unit 02/17/18 22:00 02/22/18 13:37 Heparin - SQ 5,000 unit TID [facility] Administration Potassium Chloride 20 meq/ 1,010 mls @ 42 mls/hr 02/22/18 12:30 02/22/18 13: 35 Dextrose IVPB 42 mls/hr Q24H [facility] Administration Labetalol HCl 300 mg 02/17/18 22:00 02/22/18 09:35 Normodyne - PO 300 mg BID [facility] Administration Lactobacillus Acidophilus 1 tab 02/21/18 10:30 02/22/18 09:35 Bacid - PO 1 tab BID [facility] Administration Levetiracetam 500 mg 02/17/18 22:00 02/22/18 09:35 Keppra - PO 500 mg BID [facility] Administration Loperamide HCl 2 mg 02/17/18 16:07 02/22/18 05:21 Imodium - PO 2 mg Q8H PRN Administration DIARRHEA Multivitamins/Minerals 1 each 02/18/18 10:00 02/22/18 09:37 Theragran-M PO 1 each DAILY [facility] Administration Ondansetron HCl 4 mg 02/17/18 20:00 Zofran Injection IVPB Q6H PRN NAUSEA Oxycodone HCl 10 mg 02/20/18 20:55 02/22/18 18:08 Roxicodone - PO 10 mg Q4H PRN Administration PAIN LEVEL 6-10 Pantoprazole Sodium 40 mg 02/18/18 10:00 02/22/18 09:35 Protonix - PO 40 mg DAILY [facility] Administration Potassium Chloride 40 meq 02/21/18 10:30 02/22/18 09:35 K-Dur - PO 02/23/18 11:00 40 meq DAILY [facility] Administration Home Medications Medication Instructions Recorded Citalopram Hydrobromide [Celexa -] 10 mg PO DAILY #14 tablet 06/09/17 Gabapentin 800 mg PO TID 02/12/18 oxyCODONE HCL [Roxicodone -] 10 mg PO Q6H PRN MDD 40 02/12/18 PE: Constitutional: No Distress, Calm Eyes: Conjunctiva Clear Neck: Supple Respiratory: Regular, CTA Bilaterally Gastrointestinal: Normal Bowel Sounds, Soft Renal/: Kilpatrick Present Cardiovascular: Yes: Regular Rate and Rhythm JVD: No Heart Sounds: Yes: S1, S2 Edema: No Peripheral Pulses: 2+ Left Doralis Pedis, 2+ Right Dorsalis Pedis Neurological: Yes: [id number] Psychiatric: Yes: Alert no jaundice diaphoresis ASSESSMENT AND PLAN: Patient is a 62yo female with PMHx of chronic opioids use, possible seizure disorder due to opioids withdrawel, anxiety, depression and panic attacks who was brought in to ED since was found to be unresponsive. # QUINTEN improving today: (Cr.5.9-->5.5-->4.7-->3.7-->2.6 today) Possible due to ATN from transient hypotension /sepsis/Rhabdo . Urine output is improving . off IVF due to volume overload , further management as per nephro. Lasix as needed per nephro. discussed with nephro. # S/p of Opioid Overdose was found to be unresponsive resolved , patient is awake and alert #Diarrhea: on Imodium continue will add cholestyramine 4gm daily # Right occipital stroke : on ASA, can't give statin due to having rhabdo who presented with RF, MRA of neck with no significant stenosis #Seizure disorder on Keppra continue # HTN Uncontrolled : On labetalol and wiil increase Norvasc 10mg # Rhabdomyolysis: CPK improved , can't give statins due to Rhabdo.and Kidney function to improve # acute hypoxic resp failure most likely due to opoiod OD # Transaminitis :possible stricture on MRCP. LFTS improved. Gi follow up as out pt # s/p Sepsis : unclear source.. blood cx and stool cx neg. On zosyn , no growth so far # S/p Normal AG Metabolic acidosis : likely due renal failure and diarrhea. # NSTEMI: possible due to demand ischemia on ASA, can't give statins due to renal failure - echo normal LV function - noted to have bloody BM, blood on rectal exam , deferring heparin gtt and plavix - on aspirin 81 mg daily, deferring statin due to elevated LFTs and Rhabdo. - will need ischemic eval after acute issues resolved # Rectal bleed : ischemic vs internal hemorrhoids. resolved . hemoglobin stable. # chronic back pain , oxy at increased dose. will not resume Fentanyl patch . Pain management consult. DVT Px: heparin Robitussin for Cough. discharge to rehab in am to rehab Visit type - Emergency Visit Emergency Visit: Yes ED Registration Date: 02/11/18 Care time: The patient presented to the Emergency Department on the above date and was hospitalized for further evaluation of their emergent condition. - New Patient This patient is new to me today: No - Critical Care Critical Care patient: No - Discharge Referral Referred to [facility] Med P.C.: No
[2018-02-23] MEDS: oxyCODONE HCL 5 MG TABLET PO PRN ×4 (02:26→18:30)
[2018-02-23] MEDS: HEPARIN NA (PORCINE) 5,000 UNITS/ML 1ML VIAL SQ SCH ×3 (06:34→21:39)
[2018-02-23 08:28] LABS: EOS % 3.3 % (0-4.5); HEMATOCRIT 35.1 % (32.4-45.2); HEMOGLOBIN 11.5 GM/dL (10.7-15.3); LYMPH % 12.2 % (8-40); MCH 31.5 pg (25.7-33.7); MCHC 32.8 g/dl (32.0-36.0); MEAN PLT VOLUME 8.6 fl (7.5-11.1); MONO % 6.8 % (3.8-10.2); NEUT % 76.7 % (42.8-82.8); PLATELET COUNT 363 K/MM3 (134-434); RBC 3.66 M/mm3 (3.60-5.2); RDW 15.6 % (11.6-15.6); WHITE BLOOD COUNT 13.8 K/mm3 (4.0-10.0)
[2018-02-23 08:52] LABS: ALBUMIN 2.6 g/dl (3.4-5.0); ANION GAP 13 MMOL/L (8-16); BILIRUBIN,TOTAL 0.8 mg/dL (0.2-1.0); BLOOD UREA NITROGEN 23 mg/dL (7-18); CALCIUM 8.3 mg/dL (8.5-10.1); CHLORIDE 108 mmol/L (98-107); CO2 23 mmol/L (21-32); GLUCOSE,RANDOM 102 mg/dL (74-106); MAGNESIUM 2.2 mg/dL (1.8-2.4); POTASSIUM 3.2 mmol/L (3.5-5.1); SGOT/AST 20 U/L (15-37); SGPT/ALT 61 U/L (12-78); SODIUM 144 mmol/L (136-145); TOT PROT 6.2 g/dl (6.4-8.2)
[2018-02-23 08:53] LABS: ALK PHOS 66 U/L (45-117)
[2018-02-23] MEDS ORDERED: PT OWN MED DRAWER 7, Y5N ONE (10:30)
[2018-02-23] MEDS: LABETALOL HCL 200 MG TABLET (FP) PO SCH ×2 (10:33→21:39)
[2018-02-23] MEDS: LACTOBACILLUS ACIDOPHILUS 1 TABLET PO SCH ×2 (10:33→21:39)
[2018-02-23] MEDS: levETIRAcetam 500 MG TABLET (FP) PO SCH ×2 (10:33→21:39)
[2018-02-23] MEDS: MULTIVITAMINS THER W-MINERALS COMBO TABLET (FP) PO SCH (10:33)
[2018-02-23] MEDS: ASPIRIN COATED 81 MG TABLET.EC PO SCH (10:33)
[2018-02-23] MEDS: POTASSIUM CHLORIDE TABS 20 MEQ TABLET.ER (FP) PO SCH (10:33)
[2018-02-23] MEDS: PANTOPRAZOLE 40 MG TABLET (FP) PO SCH (10:37)
[2018-02-23] MEDS: amLODIPine BESYLATE 10 MG TABLET (FP) PO SCH (10:42)
[2018-02-23] MEDS: CITALOPRAM HYDROBROMIDE 10 MG TABLET (FP) PO SCH (10:42)
[2018-02-23] MEDS: CHOLESTYRAMINE/SUCROSE 4 GM PACKET PO SCH ×2 (10:43→10:59)
--- NOTE | 2018-02-23 11:50 | PN ---
Physical Exam: SUBJECTIVE: Patient seen and examined OBJECTIVE: Vital Signs Period Temp Pulse Resp BP Sys/Gruber Pulse Ox Last 24 Hr 98.0 F-99.0 F 74-77 18-18 138-177/57-91 95 GENERAL: The patient is awake, alert, and fully oriented, in no acute distress. HEAD: Normal with no signs of trauma. EYES: PERRL, extraocular movements intact, sclera anicteric, conjunctiva clear. No ptosis. ENT: Ears normal, nares patent, oropharynx clear without exudates, moist mucous membranes. NECK: Trachea midline, full range of motion, supple. LUNGS: Breath sounds equal, clear to auscultation bilaterally, no wheezes, no crackles, no accessory muscle use. HEART: Regular rate and rhythm, S1, S2 without murmur, rub or gallop. ABDOMEN: Soft, nontender, nondistended, normoactive bowel sounds, no guarding, no rebound, no hepatosplenomegaly, no masses. EXTREMITIES: 2+ pulses, warm, well-perfused, no edema. NEUROLOGICAL: Cranial nerves II through XII grossly intact. Normal speech, gait not observed. PSYCH: Normal mood, normal affect. SKIN: Warm, dry, normal turgor, no rashes or lesions noted Laboratory Results - last 24 hr 02/23/18 02/23/18 08:00 08:00 WBC 13.8 H RBC 3.66 Hgb 11.5 Hct 35.1 MCV 96.0 MCH 31.5 MCHC 32.8 RDW 15.6 Plt Count 363 MPV 8.6 Absolute Neuts (auto) 10.6 H Neutrophils % 76.7 Lymphocytes % 12.2 Monocytes % 6.8 Eosinophils % 3.3 Basophils % 1.0 Nucleated RBC % 0 Sodium 144 Potassium 3.2 L Chloride 108 H Carbon Dioxide 23 Anion Gap 13 BUN 23 H Creatinine 2.0 H Creat Clearance w eGFR 25.16 Random Glucose 102 Calcium 8.3 L Magnesium 2.2 Total Bilirubin 0.8 AST 20 ALT 61 Alkaline Phosphatase 66 Total Protein 6.2 L Albumin 2.6 L Active Medications Generic Name Dose Route Start Last Admin Trade Name Freq PRN Reason Stop Dose Admin Amlodipine Besylate 10 mg 02/21/18 15:33 02/23/18 10:42 Norvasc - PO 10 mg DAILY [facility] Administration Aspirin 81 mg 02/18/18 10:00 02/23/18 10:33 Ecotrin - PO 81 mg DAILY [facility] Administration Cholestyramine Resin 4 gm 02/21/18 10:30 02/23/18 10:59 Questran Packet - PO Not Given DAILY [facility] Citalopram Hydrobromide 10 mg 02/18/18 10:00 02/23/18 10:42 Celexa - PO 10 mg DAILY [facility] Administration Guaifenesin 10 ml 02/19/18 14:25 02/22/18 16:50 Robitussin - PO 10 ml Q8H PRN Administration COUGH Heparin Sodium (Porcine) 5,000 unit 02/17/18 22:00 02/23/18 06:34 Heparin - SQ 5,000 unit TID [facility] Administration Potassium Chloride 20 meq/ 1,010 mls @ 42 mls/hr 02/22/18 12:30 02/22/18 13: 35 Dextrose IVPB 42 mls/hr Q24H [facility] Administration Labetalol HCl 300 mg 02/17/18 22:00 02/23/18 10:33 Normodyne - PO 300 mg BID [facility] Administration Lactobacillus Acidophilus 1 tab 02/21/18 10:30 02/23/18 10:33 Bacid - PO 1 tab BID [facility] Administration Levetiracetam 500 mg 02/17/18 22:00 02/23/18 10:33 Keppra - PO 500 mg BID [facility] Administration Loperamide HCl 2 mg 02/17/18 16:07 02/22/18 05:21 Imodium - PO 2 mg Q8H PRN Administration DIARRHEA Multivitamins/Minerals 1 each 02/18/18 10:00 02/23/18 10:33 Theragran-M PO 1 each DAILY [facility] Administration Ondansetron HCl 4 mg 02/17/18 20:00 Zofran Injection IVPB Q6H PRN NAUSEA Oxycodone HCl 10 mg 02/20/18 20:55 02/23/18 10:32 Roxicodone - PO 10 mg Q4H PRN Administration PAIN LEVEL 6-10 Pantoprazole Sodium 40 mg 02/18/18 10:00 02/23/18 10:37 Protonix - PO 40 mg DAILY [facility] Administration ASSESSMENT/PLAN: Patient is 62 y/o female with history of opiod dependence, chronic back pain, anxiety, depression, seizure disorder presented to ED unresponsive with Fentanyl patch in her mouth. She was given 6 doses Narcan by EMS in the field. Upon arrival at ED, she vomited, had diarrhea, hematochezia likely d.t ischemia vs. hemorrhoids, and was septic. Vancomycin 1000mg Zosyn 3.375 Q8H were started. Keppra 500mg BID initiated for seizure prophylaxis. She was hyperkalemic to 6.1 and was given IV NS. Throughout this admission she was also hypokalemic and was repleted with K-dur. BUN was 20, Cr was 2.5 at admission. Her urine toxicology was positive for opiates and benzodiazepines. Troponins were 1.38 upon admission, peaked at 9.45, and trended down. EKG showed NSr with nonspecific T wave abnormalities in anterior leads. Subsequent EKG showed t wave inversion in leads III, V1-V3. Cardiology consult discussed NSTEMI, and begun Aspirin 81. Possibly due to demand ischemia. No heparin d/t GI bleeding, and no statin d/t elevated LFTs. Cardiac echo showed LVEF >70%, LV normal in size and hyperdynamic. Right ventricular systolic function was borderline reduced. AST 1201, ALT 687, Alk Posphatase 127, [place] [address] upon admission. Patient was intubated. CXR confirmed satisfactory endotracheal tube placement without pneumothorax or acute lung disease. Lactic acid was elevated. Sepsis was unclear in etiology. Likely secondary to pneumonia. Treated with IV Zosyn. She presented with right sided upper extremity and lower extremity weakness which significantly improved throughout her hospital stay. Her QUINTEN likely due to rhabdomyolosis resolved with down trending Cr and BUN with Bicarb, IV fluids , and diuresis with Lasix. She had normal anion gap metabolic acidosis which was likely secondary to the acute kidney injury. CT head was negative for acute intracranial pathology. Showed chronic microvascular ischemic disease. CT chest/abdomen/pelvis showed no acute lung disease. Showed collapsed colon, thickening of distal descending and sigmoid colon, cannot rule out colitis. Liver borderline in size. No small bowel obstruction, free air, or free fluid. GI consult discussed likelyhood of ischemic hepatopathy/ ischemic bowel. Right upper abdomen and B/L renal ultrasound showed liver 15.5cm, thickening gallbladder wall 8mm with trace pericholecystic fluid. Dilation of central intrahepatic bile ducts and dilated common bile duct at 11mm. Right and left kidneys were 10.2cm and 9.6cm respectively, unremarkable. MRI abdomen showed distended gallbladder with thickened wall, no stones. Dilation of intrahepatic duct and common bile ducts suggestive of stricture. B/L pleural effusions and mild ascites also noted. Carotid doppler showed moderate right carotid arterial stenosis. MRA neck showed mild atherosclerotic narrowing at origin left internal carotid artery without significant stenosis. Lower extremity doppler was negative for DVT B/L. MRI brain showed small focus acute/ subacute nonhemorrhagic infarct in right occipital white matter. Chronic small vessel infarction in periventricular white matter. Subsequent chest xrays showed left pleural effusion with left lower lobe pneumonia, and compressive atelectasis. She was discharged to SNF with resolution of her pneumonia, cough, and right sided upper and lower extremity weakness. She was discharged on Keppra 500mg PO BID, Celexa 10mg PO QD, Labetalol 300mg BID, Norvasc 10mg QD, Aspirin 81mg PO QD , She was cleared by psychiatrist for discharge. She was referred to primary care clinic (Dr. Duran), neurologist (Dr. Baker), service line bus cleaner (Dr. Macario), psychiatrist (Dr. Garza), Furniture Shampooer ( Dr. Allred), pain management physician (Dr. Chris Reese), and automobile carpets molder (Dr. Choi) to follow up within one week of discharge.
[2018-02-23] MEDS ORDERED: oxyCODONE HCL 5 MG TABLET PO PRN (13:00)
--- NOTE | 2018-02-23 14:24 | PN ---
Teaching Attending Note Name of Resident: Melvin Dutton ATTENDING PHYSICIAN STATEMENT I saw and evaluated the patient. I reviewed the resident's note and discussed the case with the resident. I agree with the resident's findings and plan as documented. SUBJECTIVE: Patient is feeling better with no acute distress. has no new complains. No fever or chills. OBJECTIVE: Vital Signs Temperature 99.0 F 02/23/18 09:38 Pulse Rate 74 02/23/18 09:38 Respiratory Rate 18 02/23/18 09:38 Blood Pressure 154/79 02/23/18 09:38 O2 Sat by Pulse Oximetry (%) 91 L 02/23/18 10:00 CBCD WBC 13.8 K/mm3 (4.0-10.0) H 02/23/18 08:00 RBC 3.66 M/mm3 (3.60-5.2) 02/23/18 08:00 Hgb 11.5 GM/dL (10.7-15.3) 02/23/18 08:00 Hct 35.1 % (32.4-45.2) 02/23/18 08:00 MCV 96.0 fl (80-96) 02/23/18 08:00 MCHC 32.8 g/dl (32.0-36.0) 02/23/18 08:00 RDW 15.6 % (11.6-15.6) 02/23/18 08:00 Plt Count 363 K/MM3 (134-434) 02/23/18 08:00 MPV 8.6 fl (7.5-11.1) 02/23/18 08:00 CMP Sodium 144 mmol/L (136-145) 02/23/18 08:00 Potassium 3.2 mmol/L (3.5-5.1) L 02/23/18 08:00 Chloride 108 mmol/L (98-107) H 02/23/18 08:00 Carbon Dioxide 23 mmol/L (21-32) 02/23/18 08:00 Anion Gap 13 MMOL/L (8-16) 02/23/18 08:00 BUN 23 mg/dL (7-18) H 02/23/18 08:00 Creatinine 2.0 mg/dL (0.55-1.02) H 02/23/18 08:00 Creat Clearance w eGFR 25.16 (>60) 02/23/18 08:00 Random Glucose 102 mg/dL (74-106) 02/23/18 08:00 Calcium 8.3 mg/dL (8.5-10.1) L 02/23/18 08:00 Total Bilirubin 0.8 mg/dL (0.2-1.0) 02/23/18 08:00 AST 20 U/L (15-37) 02/23/18 08:00 ALT 61 U/L (12-78) 02/23/18 08:00 Alkaline Phosphatase 66 U/L (45-117) 02/23/18 08:00 Total Protein 6.2 g/dl (6.4-8.2) L 02/23/18 08:00 Albumin 2.6 g/dl (3.4-5.0) L 02/23/18 08:00 CARDIAC ENZYMES Creatine Kinase 289 IU/L (26-192) H 02/16/18 05:30 Troponin I 5.73 ng/ml (0.00-0.05) H* 02/13/18 05:30 Current Medications Generic Name Dose Route Start Last Admin Trade Name Freq PRN Reason Stop Dose Admin Amlodipine Besylate 10 mg 02/21/18 15:33 02/23/18 10:42 Norvasc - PO 10 mg DAILY [facility] Administration Aspirin 81 mg 02/18/18 10:00 02/23/18 10:33 Ecotrin - PO 81 mg DAILY [facility] Administration Cholestyramine Resin 4 gm 02/21/18 10:30 02/23/18 10:59 Questran Packet - PO Not Given DAILY [facility] Citalopram Hydrobromide 10 mg 02/18/18 10:00 02/23/18 10:42 Celexa - PO 10 mg DAILY [facility] Administration Guaifenesin 10 ml 02/19/18 14:25 02/22/18 16:50 Robitussin - PO 10 ml Q8H PRN Administration COUGH Heparin Sodium (Porcine) 5,000 unit 02/17/18 22:00 02/23/18 06:34 Heparin - SQ 5,000 unit TID [facility]ON Administration Potassium Chloride 20 meq/ 1,010 mls @ 42 mls/hr 02/22/18 12:30 02/22/18 13: 35 Dextrose IVPB 42 mls/hr Q24H [facility] Administration Labetalol HCl 300 mg 02/17/18 22:00 02/23/18 10:33 Normodyne - PO 300 mg BID [facility]ON Administration Lactobacillus Acidophilus 1 tab 02/21/18 10:30 02/23/18 10:33 Bacid - PO 1 tab BID [facility] Administration Levetiracetam 500 mg 02/17/18 22:00 02/23/18 10:33 Keppra - PO 500 mg BID [facility] Administration Loperamide HCl 2 mg 02/17/18 16:07 02/22/18 05:21 Imodium - PO 2 mg Q8H PRN Administration DIARRHEA Multivitamins/Minerals 1 each 02/18/18 10:00 02/23/18 10:33 Theragran-M PO 1 each DAILY [facility] Administration Ondansetron HCl 4 mg 02/17/18 20:00 Zofran Injection IVPB Q6H PRN NAUSEA Oxycodone HCl 10 mg 02/23/18 13:00 Roxicodone - PO Q6H PRN PAIN LEVEL 6-10 Pantoprazole Sodium 40 mg 02/18/18 10:00 02/23/18 10:37 Protonix - PO 40 mg DAILY [facility] Administration Home Medications Medication Instructions Recorded Citalopram Hydrobromide [Celexa -] 10 mg PO DAILY #14 tablet 06/09/17 Amlodipine Besylate [Norvasc -] 10 mg PO DAILY #30 tablet 02/23/18 Aspirin Coated [Ecotrin -] 81 mg PO DAILY #30 tablet.ec 02/23/18 Labetalol HCl 300 mg PO BID 30 Days #60 tablet 02/23/18 levETIRAcetam [Keppra -] 500 mg PO BID #60 tablet 02/23/18 PE: per resident's note ASSESSMENT AND PLAN: Patient is a 62yo female with PMHx of chronic opioids use, possible seizure disorder due to opioids withdrawel, anxiety, depression and panic attacks who was brought in to ED since was found to be unresponsive. # QUINTEN improving today: (Cr.5.9-->5.5-->4.7-->3.7-->2.6-->2.0 today) Possible due to ATN from transient hypotension /sepsis/Rhabdo . Urine output is improved. off IVF due to volume overload , further management as per nephro as an outpatient, Lasix as needed per nephro. Kilpatrick discontinued. # S/p of Opioid Overdose was found to be unresponsive resolved , patient is awake and alert now #Diarrhea: resolved , infectious diarrhea was rulled out. on Imodium continue added cholestyramine 4gm improved the diarrhea ,now soft stool # Right occipital stroke : on ASA, can't give statin due to having rhabdo who presented with ARF, as per nephro to hold off on on lipitor for now due to Rhabdo, MRA of neck with no significant stenosis #Seizure disorder on Keppra continue # HTN Uncontrolled : On labetalol, will increase the dose to 400mg po BID and increased Norvasc 10mg yesterday. # Rhabdomyolysis: CPK improved , can't give statins due to Rhabdo.and Kidney function to improve. Once kidney function improves follow with Nephro or etcher enameling to resume Lipitor as an outpatient. # acute hypoxic resp failure most likely due to opiod OD # Transaminitis :possible stricture on MRCP. LFTS improved. Gi follow up as out pt # s/p Sepsis : unclear source.. blood cx and stool cx neg. s/p zosyn completed. no growth was reported # S/p Normal AG Metabolic acidosis : likely due renal failure and diarrhea. # NSTEMI: possible due to demand ischemia on ASA, can't give statins due to renal failure - echo normal LV function - noted to have bloody BM, blood on rectal exam , deferring heparin gtt and plavix - on aspirin 81 mg daily, deferring statin due to elevated LFTs and Rhabdo. - will need ischemic eval after acute issues resolved # Rectal bleed : ischemic vs internal hemorrhoids. resolved . hemoglobin stable. # chronic back pain , oxy at increased dose. Do not resume Fentanyl patch . Pain management follow up as an outpatient . DVT Px: heparin Robitussin for Cough. discharge to rehab once authorization in place.
--- NOTE | 2018-02-23 15:31 | PN ---
Progress Note, Physician History of Present Illness: Pt seen and examined at bedside. She is awake and alert. She denies shortness of breath. - Current Medication List Current Medications: Active Medications Amlodipine Besylate (Norvasc -) 10 mg PO DAILY [facility] Last Admin: 02/23/18 10:42 Dose: 10 mg Aspirin (Ecotrin -) 81 mg PO DAILY [facility] Last Admin: 02/23/18 10:33 Dose: 81 mg Cholestyramine Resin (Questran Packet -) 4 gm PO DAILY [facility] Last Admin: 02/23/18 10:59 Dose: Not Given Citalopram Hydrobromide (Celexa -) 10 mg PO DAILY [facility] Last Admin: 02/23/18 10:42 Dose: 10 mg Guaifenesin (Robitussin -) 10 ml PO Q8H PRN PRN Reason: COUGH Last Admin: 02/22/18 16:50 Dose: 10 ml Heparin Sodium (Porcine) (Heparin -) 5,000 unit SQ TID [facility] Last Admin: 02/23/18 14:22 Dose: 5,000 unit Potassium Chloride 20 meq/ (Dextrose) 1,010 mls @ 42 mls/hr IVPB Q24H [facility] Last Admin: 02/22/18 13:35 Dose: 42 mls/hr Labetalol HCl (Normodyne -) 300 mg PO BID [facility] Last Admin: 02/23/18 10:33 Dose: 300 mg Lactobacillus Acidophilus (Bacid -) 1 tab PO BID [facility] Last Admin: 02/23/18 10:33 Dose: 1 tab Levetiracetam (Keppra -) 500 mg PO BID [facility] Last Admin: 02/23/18 10:33 Dose: 500 mg Loperamide HCl (Imodium -) 2 mg PO Q8H PRN PRN Reason: DIARRHEA Last Admin: 02/22/18 05:21 Dose: 2 mg Multivitamins/Minerals (Theragran-M) 1 each PO DAILY [facility] Last Admin: 02/23/18 10:33 Dose: 1 each Ondansetron HCl (Zofran Injection) 4 mg IVPB Q6H PRN PRN Reason: NAUSEA Oxycodone HCl (Roxicodone -) 10 mg PO Q6H PRN PRN Reason: PAIN LEVEL 6-10 Last Admin: 02/23/18 14:23 Dose: 10 mg Pantoprazole Sodium (Protonix -) 40 mg PO DAILY [facility] Last Admin: 02/23/18 10:37 Dose: 40 mg - Objective Vital Signs: Vital Signs Temperature 98.4 F 02/23/18 15:17 Pulse Rate 68 02/23/18 15:17 Respiratory Rate 18 02/23/18 15:17 Blood Pressure 138/75 02/23/18 15:17 O2 Sat by Pulse Oximetry (%) 91 L 02/23/18 10:00 Constitutional: Yes: Calm Eyes: Yes: Conjunctiva Clear HENT: Yes: Atraumatic Neck: Yes: Supple Cardiovascular: Yes: S1, S2 Respiratory: Yes: CTA Bilaterally Gastrointestinal: Yes: Soft Genitourinary: Yes: Frazier Present Extremities: Yes: WNL Edema: No Neurological: Yes: Oriented Psychiatric: Yes: Oriented Labs: CBC, BMP 02/23/18 08:00 02/23/18 08:00 INR, PTT INR 1.13 (0.83-1.09) H 02/11/18 19:50 Problem List - Problems (1) QUINTEN (acute kidney injury) Code(s): N17.9 - ACUTE KIDNEY FAILURE, UNSPECIFIED (2) Elevated liver enzymes Code(s): R74.8 - ABNORMAL LEVELS OF OTHER SERUM ENZYMES (3) Rhabdomyolysis Code(s): M62.82 - RHABDOMYOLYSIS Assessment/Plan Current Medications Generic Name Dose Route Start Last Admin Trade Name Freq PRN Reason Stop Dose Admin Amlodipine Besylate 10 mg 02/21/18 15:33 02/23/18 10:42 Norvasc - PO 10 mg DAILY [facility] Administration Aspirin 81 mg 02/18/18 10:00 02/23/18 10:33 Ecotrin - PO 81 mg DAILY [facility] Administration Cholestyramine Resin 4 gm 02/21/18 10:30 02/23/18 10:59 Questran Packet - PO Not Given DAILY [facility] Citalopram Hydrobromide 10 mg 02/18/18 10:00 02/23/18 10:42 Celexa - PO 10 mg DAILY [facility] Administration Guaifenesin 10 ml 02/19/18 14:25 02/22/18 16:50 Robitussin - PO 10 ml Q8H PRN Administration COUGH Heparin Sodium (Porcine) 5,000 unit 02/17/18 22:00 02/23/18 14:22 Heparin - SQ 5,000 unit TID BR[facility]ON Administration Potassium Chloride 20 meq/ 1,010 mls @ 42 mls/hr 02/22/18 12:30 02/22/18 13: 35 Dextrose IVPB 42 mls/hr Q24H [facility] Administration Labetalol HCl 300 mg 02/17/18 22:00 02/23/18 10:33 Normodyne - PO 300 mg BID BR[facility]ON Administration Lactobacillus Acidophilus 1 tab 02/21/18 10:30 02/23/18 10:33 Bacid - PO 1 tab BID [facility]ON Administration Levetiracetam 500 mg 02/17/18 22:00 02/23/18 10:33 Keppra - PO 500 mg BID [facility]ON Administration Loperamide HCl 2 mg 02/17/18 16:07 02/22/18 05:21 Imodium - PO 2 mg Q8H PRN Administration DIARRHEA Multivitamins/Minerals 1 each 02/18/18 10:00 02/23/18 10:33 Theragran-M PO 1 each DAILY [facility] Administration Ondansetron HCl 4 mg 02/17/18 20:00 Zofran Injection IVPB Q6H PRN NAUSEA Oxycodone HCl 10 mg 02/23/18 13:00 02/23/18 14:23 Roxicodone - PO 10 mg Q6H PRN Administration PAIN LEVEL 6-10 Pantoprazole Sodium 40 mg 02/18/18 10:00 02/23/18 10:37 Protonix - PO 40 mg DAILY BR[facility]ON Administration Laboratory Tests 02/12/18 02/13/18 02/16/18 05:30 05:30 16:00 Sodium Potassium Creatinine Magnesium REFUGIO M-Vincent LIANET Screen Negative Negative c-ANCA <1:20 Proteinase 3 (PR3) <3.5 p-ANCA <1:20 Atypical p-ANCA <1:20 Myeloperoxidase Ab <9.0 Double Strand DNA Ab <1 Smooth Musc &[employer] Intrp 3 Glomerular Base Memb Ab 5 Hepatitis A IgM Ab Negative Hep Bs Antigen Negative Hep B Core IgM Ab Negative Hepatitis C Antibody <0.1 02/17/18 02/23/18 11:12 08:00 Sodium 144 Potassium 3.2 L Creatinine 2.0 H Magnesium 2.2 REFUGIO M-Vincent Not observed LIANET Screen c-ANCA Proteinase 3 (PR3) p-ANCA Atypical p-ANCA Myeloperoxidase Ab Double Strand DNA Ab Smooth Musc &[employer] Intrp Glomerular Base Memb Ab Hepatitis A IgM Ab Hep Bs Antigen Hep B Core IgM Ab Hepatitis C Antibody Impression 1. QUINTEN 2. Rhabdo 3. acidosis 4. transaminitis 5. altered mental status 6. overdose - opioid 7. sepsis 8. hypotension 9. diarrhea Plan - renal function continues to improve - can monitor off of fluids - d/c frazier cath - replace potassium - no need for lasix - discussed with primary team Dr Macario
[2018-02-23] MEDS: POTASSIUM CHLORIDE 20 MEQ in DEXTROSE 5%-WATER - 1,000 ML IVPB SCH (15:34)
[2018-02-23] MEDS ORDERED: POTASSIUM CHLORIDE ORAL LIQUID 20 MEQ/15 ML PO ONE (15:45)
--- NOTE | 2018-02-23 15:59 | PN ---
Physical Exam: SUBJECTIVE: Patient seen and examined at bedside. Admits improvement in her breathing, with diminishing cough. No acute events overnight. OBJECTIVE: Vital Signs Period Temp Pulse Resp BP Sys/Gruber Pulse Ox Last 24 Hr 98.0 F-99.0 F 68-77 18-18 138-164/57-85 91-95 GENERAL: The patient is awake, alert, and fully oriented, in no acute distress. HEAD: Normal with no signs of trauma. EYES: PERRL, extraocular movements intact, sclera anicteric, conjunctiva clear. ENT: Oropharynx clear without exudates, moist mucous membranes. NECK: Supple without lymphadenopathy LUNGS: Faint crackles auscultated B/L lower lung lobes. No accessory muscle use. No respiratory distress. HEART: Regular rate and rhythm, S1, S2 without murmur, rub or gallop. ABDOMEN: Soft, nontender, nondistended, normoactive bowel sounds, no guarding, no rebound, no hepatosplenomegaly. EXTREMITIES: 2+ pulses, warm, well-perfused. NEUROLOGICAL: Cranial nerves II through XII grossly intact. Normal speech. Strength RUE abduction 4/5, flexion 5/5, extension 5/5. LUE abduction 5/5, flexion 5/5, extension 5/5. Right hip flexion 5/5, knee flexion and extension 5/ 5. Left hip flexion 5/5, knee flexion and extension 5/5. Plantarflexion and dorsiflexion 5/5/ B/L PSYCH: Appropriate mood and affect upon exam today SKIN: Warm, dry, normal turgor. Laboratory Results - last 24 hr 02/23/18 02/23/18 08:00 08:00 WBC 13.8 H RBC 3.66 Hgb 11.5 Hct 35.1 MCV 96.0 MCH 31.5 MCHC 32.8 RDW 15.6 Plt Count 363 MPV 8.6 Absolute Neuts (auto) 10.6 H Neutrophils % 76.7 Lymphocytes % 12.2 Monocytes % 6.8 Eosinophils % 3.3 Basophils % 1.0 Nucleated RBC % 0 Sodium 144 Potassium 3.2 L Chloride 108 H Carbon Dioxide 23 Anion Gap 13 BUN 23 H Creatinine 2.0 H Creat Clearance w eGFR 25.16 Random Glucose 102 Calcium 8.3 L Magnesium 2.2 Total Bilirubin 0.8 AST 20 ALT 61 Alkaline Phosphatase 66 Total Protein 6.2 L Albumin 2.6 L Active Medications Generic Name Dose Route Start Last Admin Trade Name Freq PRN Reason Stop Dose Admin Amlodipine Besylate 10 mg 02/21/18 15:33 02/23/18 10:42 Norvasc - PO 10 mg DAILY [facility]ON Administration Aspirin 81 mg 02/18/18 10:00 02/23/18 10:33 Ecotrin - PO 81 mg DAILY [facility] Administration Cholestyramine Resin 4 gm 02/21/18 10:30 02/23/18 10:59 Questran Packet - PO Not Given DAILY [facility] Citalopram Hydrobromide 10 mg 02/18/18 10:00 02/23/18 10:42 Celexa - PO 10 mg DAILY [facility] Administration Guaifenesin 10 ml 02/19/18 14:25 02/22/18 16:50 Robitussin - PO 10 ml Q8H PRN Administration COUGH Heparin Sodium (Porcine) 5,000 unit 02/17/18 22:00 02/23/18 14:22 Heparin - SQ 5,000 unit TID [facility]ON Administration Labetalol HCl 300 mg 02/17/18 22:00 02/23/18 10:33 Normodyne - PO 300 mg BID [facility]ON Administration Lactobacillus Acidophilus 1 tab 02/21/18 10:30 02/23/18 10:33 Bacid - PO 1 tab BID [facility]ON Administration Levetiracetam 500 mg 02/17/18 22:00 02/23/18 10:33 Keppra - PO 500 mg BID [facility]ON Administration Loperamide HCl 2 mg 02/17/18 16:07 02/22/18 05:21 Imodium - PO 2 mg Q8H PRN Administration DIARRHEA Multivitamins/Minerals 1 each 02/18/18 10:00 02/23/18 10:33 Theragran-M PO 1 each DAILY [facility] Administration Ondansetron HCl 4 mg 02/17/18 20:00 Zofran Injection IVPB Q6H PRN NAUSEA Oxycodone HCl 10 mg 02/23/18 13:00 02/23/18 14:23 Roxicodone - PO 10 mg Q6H PRN Administration PAIN LEVEL 6-10 Pantoprazole Sodium 40 mg 02/18/18 10:00 02/23/18 10:37 Protonix - PO 40 mg DAILY [facility] Administration ASSESSMENT/PLAN: 62 y/o female with opiod dependence, chronic pain, anxiety, depression, and seizure disorder presented unresponsive with a fentanyl patch in her mouth, admitted for unresponsiveness. Unresponsiveness -Likely secondary to opiod overdose as she was found with Fentanyl patch in her mouth. -Significant improvement in strength of right upper extremity and right lower extremities. As per patient returning to baseline -MRI showed right sided occipital stroke, which does not correlate with her physical exam. -MRA neck showed mild atherosclerotic narrowing at origin of left internal carotid artery. Negative for significant stenosis B/L. -Keppra 500 PO BID -CXR showed left pleural effusion, left lower lobe pneumonia with compressive atelectasis. -Doppler of lower extremeties showed no evidence of DVT B/L lower extremities. -(Dr. Colon) Infectious Disease consult appreciated: Continue Zosyn 2.25mg IVPB Q8H (day 10) -UA showed 1+ blood, 3 WBC, 1RBC, rare bacteria. -Urine cultures pending preliminary reading. Negative for Legionella antigen. Diarrhea -Stool cultures grew yeast like organism in Salmonella/ Shigella culture. -No growth in Campylobacter, Yersenia, Vibrio, E.coli 0157. -C. diff cultures negative -Immodium 2mg PO Q8H -Cholestyramine 4gm PO QD and Bacid 1 tablet BID Anxiety -Patient has history of anxiety -Patient denies suicidal or homocidal ideation today upon my encounter. -(Dr. Garza) Psychiatric consult appreciated: Will continue Celexa 10mg PO QD. Patient is not suicidal at this time as per psych. She is cleared for discharge as per psychiatry. Hypokalemia -Potassium has been decreasing to 3.2 today, down from 3.7 yesterday. -Nephrology recommendation appreciated (Dr. Macario): Will replete potassium. 40mg PO K-dur QD for 3 days. -F/U CMP daily QUINTEN -Likely due to rhabdomyolisis which is resolving. -(Dr. aMcario) Nephrology consult appreciated: Fluids discontinued. Patient to consider possibility of HD and renal biopsy if renal function does not improve. -Sodium Bicarb 650mg PO changed from BID to TID per nephrology -Will hold Diuresis with Lasix today per wellness program administrator recommendation -Will F/U C-AnCA Antinuclear AB, Anti GBM AB, DS DNA AB NSTEMI- -Likely d/t demand ischemia -(Dr. Choi) Cardiology consult appreciated: Continue aspirin 81 -No statins d/t increased LFTs -Echo showed normal LV function with EF >70% HTN -Labetalol 300mg BID -Norvasc 5mg QD increased to 10mg QD Right lower extremity pain -Oxycontin from 10mg Q4H to 7.5mg Q4H -F/U pain management consult (Dr. Chris Reese) Transaminitis: -MRCP showed distended gallbladder, dialted intrahepatic duct, dilated common bile duct, and ?stricture -(Dr. Allred/ Shonda) GI consult appreciated: Patient will benefit from UES as outpatient. -Hepatitis A,B,C serology negative Prophylaxis -Heparin 5000units TID -Protonix 40mg PO FEN -No IV fluids -Will follow BMP -Regular diet Disposition: Continue care in medical-surgical floor. Patient likely for discharge tomorrow, pending family/ patient agreement of post-discharge placement. Visit type - Emergency Visit Emergency Visit: No - New Patient This patient is new to me today: No - Critical Care Critical Care patient: No - Discharge Referral Referred to [facility] No
[2018-02-24] MEDS: HEPARIN NA (PORCINE) 5,000 UNITS/ML 1ML VIAL SQ SCH ×2 (07:49→13:50)
[2018-02-24 08:05] LABS: ALBUMIN 2.6 g/dl (3.4-5.0); ALK PHOS 64 U/L (45-117); ANION GAP 13 MMOL/L (8-16); BILIRUBIN,TOTAL 0.6 mg/dL (0.2-1.0); BLOOD UREA NITROGEN 23 mg/dL (7-18); CALCIUM 8.3 mg/dL (8.5-10.1); CHLORIDE 112 mmol/L (98-107); CO2 20 mmol/L (21-32); CREATININE 1.7 mg/dL (0.55-1.02); GLUCOSE,RANDOM 91 mg/dL (74-106); POTASSIUM 3.7 mmol/L (3.5-5.1); SGOT/AST 20 U/L (15-37); SGPT/ALT 49 U/L (12-78); SODIUM 145 mmol/L (136-145); TOT PROT 6.1 g/dl (6.4-8.2)
[2018-02-24 08:08] LABS: BASO % 1.2 % (0-2.0); EOS % 2.5 % (0-4.5); HEMATOCRIT 34.9 % (32.4-45.2); HEMOGLOBIN 11.4 GM/dL (10.7-15.3); LYMPH % 14.4 % (8-40); MCH 31.2 pg (25.7-33.7); MCHC 32.6 g/dl (32.0-36.0); MEAN CELL VOLUME 95.7 fl (80-96); MEAN PLT VOLUME 8.8 fl (7.5-11.1); NEUT % 74.9 % (42.8-82.8); PLATELET COUNT 354 K/MM3 (134-434); RBC 3.65 M/mm3 (3.60-5.2); RDW 15.7 % (11.6-15.6); WHITE BLOOD COUNT 15.2 K/mm3 (4.0-10.0)
[2018-02-24] MEDS ORDERED: PT OWN MED DRAWER 7, Y5N ONE (09:06)
[2018-02-24] MEDS: CITALOPRAM HYDROBROMIDE 10 MG TABLET (FP) PO SCH (09:21)
[2018-02-24] MEDS: LACTOBACILLUS ACIDOPHILUS 1 TABLET PO SCH (09:21)
[2018-02-24] MEDS: LABETALOL HCL 200 MG TABLET (FP) PO SCH (09:22)
[2018-02-24] MEDS: amLODIPine BESYLATE 10 MG TABLET (FP) PO SCH (09:22)
[2018-02-24] MEDS: ASPIRIN COATED 81 MG TABLET.EC PO SCH (09:22)
[2018-02-24] MEDS: levETIRAcetam 500 MG TABLET (FP) PO SCH (09:22)
[2018-02-24] MEDS: MULTIVITAMINS THER W-MINERALS COMBO TABLET (FP) PO SCH (09:23)
[2018-02-24] MEDS: CHOLESTYRAMINE/SUCROSE 4 GM PACKET PO SCH (09:23)
[2018-02-24] MEDS: PANTOPRAZOLE 40 MG TABLET (FP) PO SCH (09:23)
[2018-02-24] MEDS: oxyCODONE HCL 5 MG TABLET PO PRN ×3 (09:24→17:27)
[2018-02-24 09:48] LABS: CHOLESTEROL 147 mg/dL (50-200); TRIGLYCERIDES 236 mg/dL (35-160)
[2018-02-24 09:49] LABS: HDL CHOLESTEROL 37 mg/dL (40-60)
[2018-02-24 10:21] VITALS: TEMP 98.2
--- NOTE | 2018-02-24 10:42 | PN ---
Progress Note, Physician History of Present Illness: Pt seen and examined at bedside. She is awake and alert. She denies shortness of breath. - Current Medication List Current Medications: Active Medications Amlodipine Besylate (Norvasc -) 10 mg PO DAILY [facility] Last Admin: 02/24/18 09:22 Dose: 10 mg Aspirin (Ecotrin -) 81 mg PO DAILY [facility] Last Admin: 02/24/18 09:22 Dose: 81 mg Cholestyramine Resin (Questran Packet -) 4 gm PO DAILY [facility] Last Admin: 02/24/18 09:23 Dose: Not Given Citalopram Hydrobromide (Celexa -) 10 mg PO DAILY [facility] Last Admin: 02/24/18 09:21 Dose: 10 mg Guaifenesin (Robitussin -) 10 ml PO Q8H PRN PRN Reason: COUGH Last Admin: 02/22/18 16:50 Dose: 10 ml Heparin Sodium (Porcine) (Heparin -) 5,000 unit SQ TID [facility] Last Admin: 02/24/18 07:49 Dose: 5,000 unit Labetalol HCl (Normodyne -) 400 mg PO BID [facility] Last Admin: 02/24/18 09:22 Dose: 400 mg Lactobacillus Acidophilus (Bacid -) 1 tab PO BID [facility] Last Admin: 02/24/18 09:21 Dose: 1 tab Levetiracetam (Keppra -) 500 mg PO BID [facility] Last Admin: 02/24/18 09:22 Dose: 500 mg Loperamide HCl (Imodium -) 2 mg PO Q8H PRN PRN Reason: DIARRHEA Last Admin: 02/22/18 05:21 Dose: 2 mg Multivitamins/Minerals (Theragran-M) 1 each PO DAILY [facility] Last Admin: 02/24/18 09:23 Dose: 1 each Ondansetron HCl (Zofran Injection) 4 mg IVPB Q6H PRN PRN Reason: NAUSEA Oxycodone HCl (Roxicodone -) 7.5 mg PO Q4H PRN PRN Reason: PAIN LEVEL 6-10 Last Admin: 02/24/18 09:24 Dose: 7.5 mg Pantoprazole Sodium (Protonix -) 40 mg PO DAILY [facility] Last Admin: 02/24/18 09:23 Dose: 40 mg - Objective Vital Signs: Vital Signs Temperature 98.2 F 02/24/18 09:00 Pulse Rate 76 02/24/18 09:00 Respiratory Rate 18 02/24/18 09:00 Blood Pressure 140/81 02/24/18 09:00 O2 Sat by Pulse Oximetry (%) 91 L 02/23/18 10:00 Constitutional: Yes: Calm Eyes: Yes: Conjunctiva Clear HENT: Yes: Atraumatic Neck: Yes: Supple Cardiovascular: Yes: S1, S2 Respiratory: Yes: CTA Bilaterally Gastrointestinal: Yes: Soft Genitourinary: Yes: WNL Musculoskeletal: Yes: WNL Extremities: Yes: WNL Edema: No Neurological: Yes: Oriented Psychiatric: Yes: Oriented Labs: CBC, BMP 02/24/18 06:00 02/24/18 06:00 INR, PTT INR 1.13 (0.83-1.09) H 02/11/18 19:50 Problem List - Problems (1) QUINTEN (acute kidney injury) Code(s): N17.9 - ACUTE KIDNEY FAILURE, UNSPECIFIED (2) Elevated liver enzymes Code(s): R74.8 - ABNORMAL LEVELS OF OTHER SERUM ENZYMES (3) Rhabdomyolysis Code(s): M62.82 - RHABDOMYOLYSIS Assessment/Plan Current Medications Generic Name Dose Route Start Last Admin Trade Name Freq PRN Reason Stop Dose Admin Amlodipine Besylate 10 mg 02/21/18 15:33 02/24/18 09:22 Norvasc - PO 10 mg DAILY [facility] Administration Aspirin 81 mg 02/18/18 10:00 02/24/18 09:22 Ecotrin - PO 81 mg DAILY [facility] Administration Cholestyramine Resin 4 gm 02/21/18 10:30 02/24/18 09:23 Questran Packet - PO Not Given DAILY [facility] Citalopram Hydrobromide 10 mg 02/18/18 10:00 02/24/18 09:21 Celexa - PO 10 mg DAILY [facility] Administration Guaifenesin 10 ml 02/19/18 14:25 02/22/18 16:50 Robitussin - PO 10 ml Q8H PRN Administration COUGH Heparin Sodium (Porcine) 5,000 unit 02/17/18 22:00 02/24/18 07:49 Heparin - SQ 5,000 unit TID [facility]ON Administration Labetalol HCl 400 mg 02/23/18 16:25 02/24/18 09:22 Normodyne - PO 400 mg BID [facility] Administration Lactobacillus Acidophilus 1 tab 02/21/18 10:30 02/24/18 09:21 Bacid - PO 1 tab BID [facility] Administration Levetiracetam 500 mg 02/17/18 22:00 02/24/18 09:22 Keppra - PO 500 mg BID [facility] Administration Loperamide HCl 2 mg 02/17/18 16:07 02/22/18 05:21 Imodium - PO 2 mg Q8H PRN Administration DIARRHEA Multivitamins/Minerals 1 each 02/18/18 10:00 02/24/18 09:23 Theragran-M PO 1 each DAILY [facility] Administration Ondansetron HCl 4 mg 02/17/18 20:00 Zofran Injection IVPB Q6H PRN NAUSEA Oxycodone HCl 7.5 mg 02/23/18 17:11 02/24/18 09:24 Roxicodone - PO 7.5 mg Q4H PRN Administration PAIN LEVEL 6-10 Pantoprazole Sodium 40 mg 02/18/18 10:00 02/24/18 09:23 Protonix - PO 40 mg DAILY [facility] Administration Selected Entries 02/24/18 02/24/18 06:00 09:00 Blood Pressure 140/64 140/81 Impression 1. QUINTEN 2. Rhabdo 3. acidosis 4. transaminitis 5. altered mental status 6. overdose - opioid 7. sepsis 8. hypotension 9. diarrhea Plan - bp is improving, check after am meds - renal function is improved - pt tolerated voiding trial - monitor lytes - has been stable off of diuretics - will see as outpt Dr Macario
[2018-02-24 15:19] VITALS: BP 119/67; PULSE 69
--- NOTE | 2018-02-24 16:31 | PN ---
Teaching Attending Note Name of Resident: Melvin Dutton ATTENDING PHYSICIAN STATEMENT I saw and evaluated the patient. I reviewed the resident's note and discussed the case with the resident. I agree with the resident's findings and plan as documented. SUBJECTIVE: no fever or chills. No abd pain , no TAVERA , strength in R side has improved OBJECTIVE: NAD, awake, Cv: RRR, no MRG Lungs: CTAB Abd: soft, NT, NL BS Ext: no edema . R leg muscle atrophy neuo: EOMi, round equal pupils, tongue at mid line , nl facial sensation . strenght 5/5 in upper extremities proximally and distally. RLE with 4/5 hip flexion , 5/5 knee flexion and extension . 4/5 ankle dorsiflexion and plantar flexion . LLE strength 5/5 proximally and distally ASSESSMENT AND PLAN: 62 y/o 62 y/o lady with h/o chronic opioids use, possible seizure disorder, anxiety, depression and panic attacks who was brought to ER due to unresponsiveness 1- Unresponsiveness/encephalopathy: likely due to opioid overdose. resolved 2- R occipital stroke : - cont ASA, start statin at 10 mg as LFTS are Nl and stabl e - cont Keppra for seizure disorder - EMG as out pt . f/u with neuro 3- HTN: cont labetalol and Norvasc 5- QUINTEN: improved . f/u as out pt 6- Acute hypoxic resp failure : due to acute diastolic heart failure and renal failure -improved . stable off diuretics. - f/u as out pt 7- Rhabdomyolysis: resolved 8- Transaminitis :possible stricture on MRCP. LFTS improved. - Gi follow up as out pt 9- Sepsis : sinished a course of Abx 10- NSTEMI: possible demand, - cont ASA and statin . 11- Rectal bleed :resolved 12- chronic back pain , will dc on percocet q 8 hours. no prescription as she has at home. no fentanyl pathes to be used any more rehab recommended. she declined and understand that risk of fall is high at home and still wants to go home. VNS arranged .
--- NOTE | 2018-02-25 13:58 | DS ---
Physical Exam: SUBJECTIVE: Patient seen and examined at bedside. Admits improvement in her breathing, with diminishing cough. Admits improvement of right upper and lower extremity strength, returned to baseline. No acute events overnight. OBJECTIVE: Vital Signs Period Temp Pulse Resp BP Sys/Gruber Pulse Ox Last 24 Hr 98.2 F 69 18 119/67 PHYSICAL EXAM GENERAL: The patient is awake, alert, and fully oriented, in no acute distress. HEAD: Normal with no signs of trauma. EYES: PERRL, extraocular movements intact, sclera anicteric, conjunctiva clear. ENT: Oropharynx clear without exudates, moist mucous membranes. NECK: Supple without lymphadenopathy LUNGS: Faint crackles auscultated B/L lower lung lobes. No accessory muscle use. No respiratory distress. HEART: Regular rate and rhythm, S1, S2 without murmur, rub or gallop. ABDOMEN: Soft, nontender, nondistended, normoactive bowel sounds, no guarding, no rebound, no hepatosplenomegaly. EXTREMITIES: 2+ pulses, warm, well-perfused. NEUROLOGICAL: Cranial nerves II through XII grossly intact. Normal speech. Strength RUE abduction 4/5, flexion 5/5, extension 5/5. LUE abduction 5/5, flexion 5/5, extension 5/5. Right hip flexion 5/5, knee flexion and extension 5/ 5. Left hip flexion 5/5, knee flexion and extension 5/5. Plantarflexion and dorsiflexion 5/5/ B/L PSYCH: Appropriate mood and affect upon exam today SKIN: Warm, dry, normal turgor. LABS HOSPITAL COURSE: Date of Admission:02/11/18 Date of Discharge: 02/24/18 Patient is 62 y/o female with history of opiod dependence, chronic back pain, anxiety, depression, seizure disorder presented to ED unresponsive with Fentanyl patch in her mouth. She was given 6 doses Narcan by EMS in the field. Upon arrival at ED, she vomited, had diarrhea, hematochezia likely d.t ischemia vs. hemorrhoids, and was septic. Vancomycin 1000mg Zosyn 3.375 Q8H were started. Keppra 500mg BID initiated for seizure prophylaxis. She was hyperkalemic to 6.1 and was given IV NS. Throughout this admission she was also hypokalemic and was repleted with K-dur. BUN was 20, Cr was 2.5 at admission. Her urine toxicology was positive for opiates and benzodiazepines. Troponins were 1.38 upon admission, peaked at 9.45, and trended down. EKG showed NSr with nonspecific T wave abnormalities in anterior leads. Subsequent EKG showed t wave inversion in leads III, V1-V3. Cardiology consult discussed NSTEMI, and begun Aspirin 81. Possibly due to demand ischemia. No heparin d/t GI bleeding, and no statin d/t elevated LFTs. Cardiac echo showed LVEF >70%, LV normal in size and hyperdynamic. Right ventricular systolic function was borderline reduced. AST 1201, ALT 687, Alk Posphatase 127, [place] [address] upon admission. Patient was intubated. CXR confirmed satisfactory endotracheal tube placement without pneumothorax or acute lung disease. Lactic acid was elevated. Sepsis was unclear in etiology. Likely secondary to pneumonia. Treated with IV Zosyn. She presented with right sided upper extremity and lower extremity weakness which significantly improved throughout her hospital stay. Her QUINTEN likely due to rhabdomyolosis resolved with down trending Cr and BUN with Bicarb, IV fluids , and diuresis with Lasix. She had normal anion gap metabolic acidosis which was likely secondary to the acute kidney injury. CT head was negative for acute intracranial pathology. Showed chronic microvascular ischemic disease. CT chest/abdomen/pelvis showed no acute lung disease. Showed collapsed colon, thickening of distal descending and sigmoid colon, cannot rule out colitis. Liver borderline in size. No small bowel obstruction, free air, or free fluid. GI consult discussed likelyhood of ischemic hepatopathy/ ischemic bowel. Right upper abdomen and B/L renal ultrasound showed liver 15.5cm, thickening gallbladder wall 8mm with trace pericholecystic fluid. Dilation of central intrahepatic bile ducts and dilated common bile duct at 11mm. Right and left kidneys were 10.2cm and 9.6cm respectively, unremarkable. MRI abdomen showed distended gallbladder with thickened wall, no stones. Dilation of intrahepatic duct and common bile ducts suggestive of stricture. B/L pleural effusions and mild ascites also noted. Carotid doppler showed moderate right carotid arterial stenosis. MRA neck showed mild atherosclerotic narrowing at origin left internal carotid artery without significant stenosis. Lower extremity doppler was negative for DVT B/L. MRI brain showed small focus acute/ subacute nonhemorrhagic infarct in right occipital white matter. Chronic small vessel infarction in periventricular white matter. Subsequent chest xrays showed left pleural effusion with left lower lobe pneumonia, and compressive atelectasis. She was discharged to SNF with resolution of her pneumonia, cough, and right sided upper and lower extremity weakness. She was discharged on Keppra 500mg PO BID, Celexa 10mg PO QD, Labetalol 300mg BID, Norvasc 10mg QD, Aspirin 81mg PO QD , Atorvastatin 10mg PO HS. She was cleared by psychiatrist for discharge. She denied suicidal or homocidal ideation. She was referred to primary care clinic (Dr. Duran), neurologist (Dr. Baker), machine setter automatic (Dr. Macario), psychiatrist (Dr. Garza), Cathode Builder ( Dr. Allred), pain management physician (Dr. Chris Reese), and singer back tender (Dr. Choi) to follow up within one week of discharge. Minutes to complete discharge: 35 Discharge Summary Reason For Visit: DRUG OVERDOSE,SEPSIS Condition: Improved - Instructions Diet, Activity, Other Instructions: You were admitted to hospital because you were found unresponsive. You were treated for pneumonia, seizures, increased liver enzymes, diminished kidney function, diarrhea. It is important that you continue taking your medications for: Seizures (Keppra 500mg twice a day), You have psychiatric history of anxiety, and were seen by the psychiatrist. Continue taking (Celexa 10mg every day) For your blood pressure continue (Labetalol 400mg twice a day, and Norvasc 10mg every day) Continue Aspirin 81mg every day. take lipitor 10 mg every evening It is important that you follow up with our primary care clinic (Dr. Duran), neurologist (Dr. Baker), machine setter automatic (Dr. Macario), psychiatrist (Dr. Graza), Cathode Builder (Dr. Allred), pain management physician (Dr. Chris Reese), and singer back tender (Dr. Choi) within one week of your discharge from hospital. you will need further testing Please return to the nearest ED if you feel fevers, chills, lightheadedness, dizziness, onset of seizures at any time. for your pain , do not use fentanyl patch any more . use percocet every 12 hours only if you need it . try to minimize narcotics use. no prescription is provided ,. avoid motrin, advil, naproxen, aleve, and similar meds due to risk for renal injury Referrals: Brendon Baker MD [Staff Physician] - 1 Week Shamar Duran MD [Staff Physician] - 1 Week Ramsey Garza MD [Staff Physician] - 1 Week Wanda Choi MD [Staff Physician] - Justin Allred MD [Staff Physician] - 1 Week Chris Reese MD [Staff Physician] - 1 Week Shannan Macario MD [Staff Physician] - 1 Week Disposition: VNS/HOME HEALTH CARE - Home Medications Comprehensive Discharge Medication List: Ambulatory Orders Amlodipine Besylate [Norvasc -] 10 mg PO DAILY #30 tablet 02/24/18 Aspirin Coated [Ecotrin -] 81 mg PO DAILY #30 tablet.ec 02/24/18 Aspirin [Aspirin EC] 81 mg PO DAILY 30 Days #30 tablet.dr 02/24/18 Atorvastatin Ca [Lipitor] 10 mg PO HS #30 tablet 02/24/18 Labetalol HCl [Normodyne -] 400 mg PO BID #60 tablet 02/24/18 Oxycodone HCl/Acetaminophen [Percocet 10-325 mg Tablet] 1 each PO Q12H PRN #1 tablet MDD 2 tab in 24 hr 02/24/18 levETIRAcetam [Keppra -] 500 mg PO BID #60 tablet 02/24/18 Problem List - Problems (1) QUINTEN (acute kidney injury) Code(s): N17.9 - ACUTE KIDNEY FAILURE, UNSPECIFIED (2) Endotracheally intubated Code(s): Z97.8 - PRESENCE OF OTHER SPECIFIED DEVICES (3) NSTEMI (non-ST elevated myocardial infarction) Code(s): I21.4 - NON-ST ELEVATION (NSTEMI) MYOCARDIAL INFARCTION (4) Rhabdomyolysis Code(s): M62.82 - RHABDOMYOLYSIS This patient is new to me today: No Emergency Visit: Yes ED Registration Date: 02/11/18 Care time: The patient presented to the Emergency Department on the above date and was hospitalized for further evaluation of their emergent condition. Critical Care patient: No - Discharge Referral Referred to [facility] Med P.C.: No
== END 2018-02-24 18:30 | disposition home health service (06) | DRG 720 ==
LOC: JER 18:53 → JERBED 22:43 → JICU 02-12 00:43 → J2W 02-14 20:46 → J4W 02-15 20:32 → J5S 02-17 19:43
PROVIDERS: ADMIT Internal Medicine; ATTEND Internal Medicine
PROC: 5A1935Z Respiratory Ventilation, Less than 24 Consecutive Hours (ICD-10-PCS; principal; 2018-02-11)
PROC: 0BH17EZ Insertion of Endotracheal Airway into Trachea, Via Natural or Artificial Opening (ICD-10-PCS; 2018-02-11)
DX: A41.9 Sepsis, unspecified organism (principal); T40.2X1A Poisoning by other opioids, accidental (unintentional), initial encounter; I21.A1 Myocardial infarction type 2; I63.9 Cerebral infarction, unspecified; J96.01 Acute respiratory failure with hypoxia; R65.20 Severe sepsis without septic shock; K55.059 Acute (reversible) ischemia of intestine, part and extent unspecified; R40.20 Unspecified coma; G92 Toxic encephalopathy; I50.23 Acute on chronic systolic (congestive) heart failure; N17.9 Acute kidney failure, unspecified; M62.82 Rhabdomyolysis; K55.9 Vascular disorder of intestine, unspecified; D69.6 Thrombocytopenia, unspecified; I95.9 Hypotension, unspecified; G81.91 Hemiplegia, unspecified affecting right dominant side; E83.42 Hypomagnesemia; I65.21 Occlusion and stenosis of right carotid artery; E87.5 Hyperkalemia; M41.9 Scoliosis, unspecified; F41.9 Anxiety disorder, unspecified; F32.9 Major depressive disorder, single episode, unspecified; F41.0 Panic disorder [episodic paroxysmal anxiety]; F17.210 Nicotine dependence, cigarettes, uncomplicated; R74.0 Nonspecific elevation of levels of transaminase and lactic acid dehydrogenase [LDH]; M54.9 Dorsalgia, unspecified; R11.10 Vomiting, unspecified; R19.7 Diarrhea, unspecified; F11.20 Opioid dependence, uncomplicated; G89.29 Other chronic pain; D72.829 Elevated white blood cell count, unspecified; R74.8 Abnormal levels of other serum enzymes; K62.5 Hemorrhage of anus and rectum; M54.5 Low back pain; M79.661 Pain in right lower leg; G40.909 Epilepsy, unspecified, not intractable, without status epilepticus; J98.11 Atelectasis
CPT/HCPCS: 36415; 36600; 70450-TC; 70547-TC; 70551-TC; 71045-TC-FY; 71250-TC; 74176-TC; 74181-TC; 76705-TC; 76775-TC; 80048; 80053; 80061; 80074; 80307; 81003; 81015; 82140; 82272; 82375; 82436; 82550; 82553; 82570; 82607; 82746; 82803; 82962; 83036; 83050; 83516; 83520; 83605; 83721; 83735; 84100; 84132; 84133; 84155; 84156; 84165; 84300; 84443; 84484; 85025; 85027; 85610; 85730; 86038; 86225; 86256; 87040; 87045; 87046; 87086; 87205; 87324; 87449; 87899; 93005; 93010; 93306-TC; 93880-TC; 93970-TC; 94010; 94640; 97116-GP; 97162-GP; 99285-25; J1644; J7030

== ENCOUNTER 2018-04-10 21:27 | Inpatient (IN) | payer OTHER ==
--- NOTE | 2018-04-10 21:57 | PDOC ---
History of Present Illness - General Chief Complaint: Altered Mental Status Stated Complaint: DIZZY, SICK Time Seen by Provider: 04/10/18 21:52 - History of Present Illness Initial Comments: 62-year-old female with significant past medical history of opioid dependency, epilepsy (Gabapentin), skeletal back problems (Fentanyl patches), panic attacks , who presents to the emergency department today BIB her daughter in an altered state. The daughter states the patient has been constantly confused, roaming around the neighborhood naked, randomly sitting in the empty bath tub without water naked, speaking to people who are not there, and putting potato chips inside the laundry detergent. The patient repeatedly asks to "help her get out of here and get her home." The patient does not know why she is here in the ED. The daughter states that her mom keeps falling down and hurting herself as well. One day she hit her head and now has a bruise over her Left eye. Another day she fell down and hit her shoulder. The patient endorses dysuria, frequency, and urgency. Patient denies any chest pain, SOB, difficulty breathing, neck pain, headache, blurry vision, abdominal pain, diarrhea, constipation, recent fevers, chills, or infections. PCP: None Allergies: Lactose Social Hx: Denies smoking, alcohol, or illicit drugs. Past History - Past Medical History Allergies/Adverse Reactions: Allergies Allergy/AdvReac Type Severity Reaction Status Date / Time lactose AdvReac Unknown Verified 02/11/18 21:25 Home Medications: Ambulatory Orders Amlodipine Besylate [Norvasc -] 10 mg PO DAILY #30 tablet 02/24/18 Aspirin Coated [Ecotrin -] 81 mg PO DAILY #30 tablet.ec 02/24/18 Aspirin [Aspirin EC] 81 mg PO DAILY 30 Days #30 tablet. 02/24/18 Atorvastatin Ca [Lipitor] 10 mg PO HS #30 tablet 02/24/18 Labetalol HCl [Normodyne -] 400 mg PO BID #60 tablet 02/24/18 Oxycodone HCl/Acetaminophen [Percocet 10-325 mg Tablet] 1 each PO Q12H PRN #1 tablet MDD 2 tab in 24 hr 02/24/18 levETIRAcetam [Keppra -] 500 mg PO BID #60 tablet 02/24/18 Anemia: No Asthma: No Cancer: No Cardiac Disorders: No CVA: No COPD: No CHF: No Dementia: No Diabetes: No GI Disorders: No Disorders: No HTN: No Hypercholesterolemia: No Liver Disease: No Psychiatric Problems: Yes (PANIC ATTACKS) Seizures: Yes Thyroid Disease: No - Surgical History Abdominal Surgery: No Appendectomy: Yes Cardiac Surgery: No Cholecystectomy: No Lung Surgery: No Neurologic Surgery: Yes (herniated disc,scoliosis) Orthopedic Surgery: No - Immunization History Immunization Up to Date: Yes - Suicide/Smoking/Psychosocial Hx Smoking Status: Yes Smoking History: Current every day smoker Have you smoked in the past 12 months: Yes Number of Cigarettes Smoked Daily: 3 Cigars Per Day: 0 Information on smoking cessation initiated: No 'Breaking Loose' booklet given: 10/24/16 Hx Alcohol Use: No Drug/Substance Use Hx: No Substance Use Type: None, Prescribed Hx Substance Use Treatment: No Review of Systems - Review of Systems Comments:: CONSTITUTIONAL: Absent: fever, chills, diaphoresis, generalized weakness, malaise, loss of appetite HEENT: Absent: rhinorrhea, nasal congestion, throat pain, throat swelling, difficulty swallowing, mouth swelling, ear pain, eye pain, visual Changes CARDIOVASCULAR: Absent: chest pain, syncope, palpitations, irregular heart rate, lightheadedness , peripheral edema RESPIRATORY: Absent: cough, shortness of breath, dyspnea with exertion, orthopnea, wheezing, stridor, hemoptysis GASTROINTESTINAL: Absent: abdominal pain, abdominal distension, nausea, vomiting, diarrhea, constipation, melena, hematochezia GENITOURINARY: Present: dysuria, frequency, urgency. Absent: hesitancy, hematuria, flank pain, genital pain MUSCULOSKELETAL: Present: arthralgia Absent: myalgia, joint swelling SKIN: Absent: rash, itching, pallor HEMATOLOGIC/IMMUNOLOGIC: Absent: easy bleeding, easy bruising, lymphadenopathy, frequent infections ENDOCRINE: Absent: unexplained weight gain, unexplained weight loss, heat intolerance, cold intolerance NEUROLOGIC: Present: Mental status changes, dizziness, unsteady gait Absent: headache, focal weakness or paresthesias, seizure, bladder or bowel incontinence PSYCHIATRIC: Present: Anxiety, depression, hallucinations. Absent: suicidal or homicidal ideation *Physical Exam - Vital Signs Last Vital Signs Temp Pulse Resp BP Pulse Ox 98.8 F 107 H 18 164/78 99 04/10/18 21:33 04/10/18 21:33 04/10/18 21:33 04/10/18 21:33 04/10/18 21:33 - Physical Exam Comments: GENERAL: Patient is skinny, frail, confused, and repeatedly asks to get out of here. HEENT: There is a bruise over the Left orbit. Normocephalic. PERRLA, EOMI. No conjunctival pallor. Sclera are non-icteric. Dry mucous membranes. Oropharynx is clear. NECK: Supple. Full ROM. No JVD. No thyromegaly. No lymphadenopathy. CARDIOVASCULAR: Tachycardic rate and regular rhythm. No murmurs, rubs, or gallops. Distal pulses are 2+ and symmetric. PULMONARY: No evidence of respiratory distress. Lungs clear to auscultation bilaterally. No wheezing, rales or rhonchi. ABDOMINAL: Soft. Non-tender. Non-distended. No rebound or guarding. No organomegaly. Normoactive bowel sounds. MUSCULOSKELETAL Limited range of motion at many joints. Multiple bony deformities and significant L ankle tenderness. No CVA tenderness. EXTREMITIES: No cyanosis. No clubbing. No edema. No calf tenderness. SKIN: Warm and dry. Normal capillary refill. No rashes. No jaundice. NEUROLOGICAL: Awake, confused. Cranial nerves 2-12 intact. No deficits to light touch in face , upper extremities and lower extremities. No motor deficits in the in face, upper extremities and lower extremities. Normal speech. PSYCHIATRIC: Non-Cooperative. Bad eye contact. RECTAL: No gwen blood. Hard stool in vault. ED Treatment Course - LABORATORY CBC & Chemistry Diagram: 04/10/18 22:36 04/10/18 22:36 Medical Decision Making - Medical Decision Making 62-year-old female with significant past medical history of opioid dependency, epilepsy (Gabapentin), skeletal back problems (Fentanyl patches), panic attacks , who presents to the emergency department today BIB her daughter in an altered state. She is delirious and screaming out of confusion here in the ED. DD includes but not limited to: delirium, dementia, UTI/pylo, electrolyte abnormality, drug overdose, infection, CVA/stroke. Plan: cbc, cmp, mag, phos, tsh, trop, bnp, UA/UC, CXR, Head CT, EKG, re-assess. -Patient is extremely agitated and will likely need sedation. - giving patient 5 of nesha and 2 of ativan Patient will be admitted after basic ER workup. UA came back showing she has a UTI - We will start treatment with Ceftriaxone here in the ED before we admit the patient. *DC/Admit/Observation/Transfer Diagnosis at time of Disposition: UTI (urinary tract infection), Delirium - Discharge Dispostion Condition at time of disposition: Guarded Decision to Admit order: Yes - Referrals - Patient Instructions - Post Discharge Activity
--- NOTE | 2018-04-10 21:58 | PDOC ---
Attending Attestation - Resident Resident Name: Ze Montgomery - ED Attending Attestation I have performed the following: I have examined & evaluated the patient, The case was reviewed & discussed with the resident, I agree w/resident's findings & plan, Exceptions are as noted - HPI HPI: 04/11/18 01:28 The patient is a 62 year old female with past medical history of opioid use, seizures, panic attacks who was brought in by daughter for increased confusion and altered mental status for the past two weeks. As per daughter the patient has been running naked in the streets, having visual hallucinations, and has been having multiple frequent unwitnessed falls. The daughter also reports that the patient had one episode of dark stool yesterday but denies any blood. She cannot recall why she was brought to the ED but does report having frequency and dysuria. Denies any fevers or chills. - Physicial Exam PE: 04/11/18 01:28 Agree with resident exam - Medical Decision Making 04/11/18 01:28 62yo F presents to the ED with AMS, increasing confusion, hallucinations, combativeness and multiple falls at home. Pt lives with her daughter but has no help taking care of pt. Vitals with mild tachycardia. UA+ for UTI. In light of frequent falls, infection, AMS, pt is not a safe DC home. Will tx with ceftriaxone and admit. Remainder of w/u including labs, CTH, wnl. Case discussed with Dr. Chandler by Dr Montgomery, pt accepted for admission to Dr. Fulton Case discussed in detail with admitting physician including history, physical exam and ancillary studies. Admitting physician has assumed care for the patient, will follow all pending diagnostics and will complete the evaluation and treatment.
[2018-04-10] MEDS ORDERED: SODIUM CHLORIDE 0.9% 500 ML INFUS.BAG IV ONE (22:15)
[2018-04-10] MEDS ORDERED: ACETAMINOPHEN 1000 MG/100 ML VIAL (NON FORMULARY) IVPB ONE (22:19)
[2018-04-10] MEDS ORDERED: ACETAMINOPHEN INJECTION 100 ML IVPB ONE (22:25)
[2018-04-10 22:57] LABS: BASO % 1.4 % (0-2.0); EOS % 3.3 % (0-4.5); HEMATOCRIT 34.7 % (32.4-45.2); HEMOGLOBIN 11.5 GM/dL (10.7-15.3); LYMPH % 44.9 % (8-40); MCH 32.1 pg (25.7-33.7); MCHC 33.2 g/dl (32.0-36.0); MEAN CELL VOLUME 96.6 fl (80-96); MEAN PLT VOLUME 8.2 fl (7.5-11.1); MONO % 9.5 % (3.8-10.2); NEUT % 40.9 % (42.8-82.8); PLATELET COUNT 353 K/MM3 (134-434); RBC 3.59 M/mm3 (3.60-5.2); RDW 14.2 % (11.6-15.6); WHITE BLOOD COUNT 6.5 K/mm3 (4.0-10.0)
[2018-04-10 23:00] LABS: URINE APPEARANCE CLOUDY; URINE BILIRUBIN NEGATIVE (<2.0 mg/dL); URINE COLOR AMBER; URINE GLUCOSE (UA) NEGATIVE (NEGATIVE); URINE KETONE NEGATIVE (NEGATIVE); URINE LEUK ESTERASE 3+ (NEGATIVE); URINE NITRITE NEGATIVE (NEGATIVE); URINE PROTEIN NEGATIVE (NEGATIVE); URINE UROBILINOGEN NEGATIVE mg/dL (0.2-1.0)
[2018-04-10 23:04] LABS: EPI CELLS RARE /HPF (FEW); URINE HYALINE CAST 3 /lpf
[2018-04-10 23:12] LABS: INR 0.9 (0.83-1.09); PROTHROMBIN TIME (PATIENT) 10.6 SEC (9.7-13.0)
[2018-04-10] MEDS ORDERED: HALOPERIDOL LACTATE 5 MG/ML IM ONE (23:23)
[2018-04-10] MEDS ORDERED: LORazepam 2 MG/ML SDV VIAL ONE (23:26)
[2018-04-10] MEDS ORDERED: HALOPERIDOL LACTATE 5 MG/ML ONE (23:26)
[2018-04-10] MEDS ORDERED: CEFTRIAXONE 1,000 MG in DEXTROSE 5%-WATER - 50 ML IVPB ONE (23:32)
[2018-04-10 23:34] LABS: ALBUMIN 3.4 g/dl (3.4-5.0); ALK PHOS 87 U/L (45-117); ANION GAP 7 MMOL/L (8-16); BILIRUBIN,TOTAL 0.1 mg/dL (0.2-1); BLOOD UREA NITROGEN 12 mg/dL (7-18); CALCIUM 9.2 mg/dL (8.5-10.1); CHLORIDE 107 mmol/L (98-107); CO2 28 mmol/L (21-32); CREATININE 0.7 mg/dL (0.55-1.3); GLUCOSE,RANDOM 107 mg/dL (74-106); MAGNESIUM 2.3 mg/dL (1.8-2.4); PHOSPHOROUS 3.8 mg/dL (2.5-4.9); POTASSIUM 4.4 mmol/L (3.5-5.1); SGOT/AST 15 U/L (15-37); SGPT/ALT 12 U/L (13-61); SODIUM 141 mmol/L (136-145); TOT PROT 6.4 g/dl (6.4-8.2)
[2018-04-10] MEDS ORDERED: PANTOPRAZOLE SODIUM 40 MG VIAL IVPUSH ONE (23:45)
[2018-04-11] MEDS ORDERED: CEFTRIAXONE 1 GM/50 ML BAG ONE (00:49)
[2018-04-11] MEDS ORDERED: PANTOPRAZOLE SODIUM 40 MG/100 ML BAG IVPB ONE (00:49)
--- NOTE | 2018-04-11 01:32 | HP ---
CHIEF COMPLAINT: Worsening agitation and AMS x2 weeks PCP: None HISTORY OF PRESENT ILLNESS: Pt is a poor historian and daughter was not by the bedside when I saw, Pt is a 62 yo F with signif PMHx of HTN, HLD, opioid dependency, epilepsy , skeletal back problems (previous back sx) , panic attacks, who presenting to the ED from home by her daughter for increased agitation. Per EMR- The daughter states the patient has been constantly confused, roaming around the neighborhood naked, randomly sitting in the empty bath tub without water naked, speaking to people who are not there, and putting potato chips inside the laundry detergent. The patient repeatedly asks to "help her get out of here and get her home." The daughter reported falls . One day she hit her head and now has a bruise over her Left eye. Another day she fell down and hit her shoulder. Pt's daughter reported poor hygiene in patient with feces spread all over bathroom and also an episode of dark stools. Pt has also had increased hallucinations with increased combativenes. In recent admission in [facility] 02/11/18-02/24/18 pt was found to be altered with fentanyl patch found in her mouth, received 6 rounds of narcan and positive for opiates and benzodiazepines and to have rhabdomyolysis. She was started on ASA for a likely NSTEMI and because of recent GI bleed did not receive heparin drip. She also had elevated LFTs and her statin was discontinued. Per records patient has been on celexa in past. Unsure of why it was stopped At this time, it is difficult to confirm, but patient denied any symptoms except back pain (area of previous spine surgery). ER course was notable for: (1) UA-3+ LE, WBC-23 (2) haldol/ativan, ceftriaxone 1gm (3) negative fecal occult (4) EKG (5) Cervical spine CT- denerative changes, no acute pathology, CT head- no acute pathology Recent Travel: PAST MEDICAL HISTORY: HTN, HLD, opioid dependency, epilepsy , skeletal back problems (previous back sx ) , panic attacks PAST SURGICAL HISTORY: Social History: Smoking: Alcohol: Drugs: Family History: Allergies lactose Adverse Reaction (Unknown, Verified 02/11/18 21:25) HOME MEDICATIONS: Home Medications Medication Instructions Recorded Amlodipine Besylate [Norvasc -] 10 mg PO DAILY #30 tablet 02/24/18 Aspirin Coated [Ecotrin -] 81 mg PO DAILY #30 tablet.ec 02/24/18 Aspirin [Aspirin EC] 81 mg PO DAILY 30 Days #30 02/24/18 tablet. Atorvastatin Ca [Lipitor] 10 mg PO HS #30 tablet 02/24/18 Labetalol HCl [Normodyne -] 400 mg PO BID #60 tablet 02/24/18 Oxycodone HCl/Acetaminophen 1 each PO Q12H PRN #1 tablet MDD 2 02/24/18 [Percocet 10-325 mg Tablet] tab in 24 hr levETIRAcetam [Keppra -] 500 mg PO BID #60 tablet 02/24/18 REVIEW OF SYSTEMS CONSTITUTIONAL: Absent: fever, chills, diaphoresis, generalized weakness, malaise, loss of appetite, weight change HEENT: Absent: rhinorrhea, nasal congestion, throat pain, throat swelling, difficulty swallowing, mouth swelling, ear pain, eye pain, visual changes CARDIOVASCULAR: Absent: chest pain, syncope, palpitations, irregular heart rate, lightheadedness , peripheral edema RESPIRATORY: Absent: cough, shortness of breath, dyspnea with exertion, orthopnea, wheezing, stridor, hemoptysis GASTROINTESTINAL: Absent: abdominal pain, abdominal distension, nausea, vomiting, diarrhea, constipation, melena, hematochezia GENITOURINARY: Absent: dysuria, frequency, urgency, hesitancy, hematuria, flank pain, genital pain MUSCULOSKELETAL: Absent: myalgia, arthralgia, joint swelling, back pain, neck pain SKIN: Absent: rash, itching, pallor HEMATOLOGIC/IMMUNOLOGIC: Absent: easy bleeding, easy bruising, lymphadenopathy, frequent infections ENDOCRINE: Absent: unexplained weight gain, unexplained weight loss, heat intolerance, cold intolerance NEUROLOGIC: Absent: headache, focal weakness or paresthesias, dizziness, unsteady gait, seizure, mental status changes, bladder or bowel incontinence PSYCHIATRIC: Absent: anxiety, depression, suicidal or homicidal ideation, hallucinations. PHYSICAL EXAMINATION Vital Signs - 24 hr 04/10/18 21:33 Temperature 98.8 F Pulse Rate 107 H Respiratory 18 Rate Blood Pressure 164/78 O2 Sat by Pulse 99 Oximetry (%) GENERAL: Somnolent but arousable. Oriented to self, place and possibly time. ( thought it was 1917, but knew the President). In no acute respiratory distress. EYES: Circumferential healing bruise around left eye EARS, NOSE, THROAT: oropharynx clear without exudates. NECK: supple LUNGS: Breath sounds equal, clear to auscultation bilaterally. No wheezes, and no crackles. HEART: Irregular rate and rhythm, S1 and S2 with grade 3/6 systolic murmur . ABDOMEN: Soft, nontender, not distended, normoactive bowel sounds, MUSCULOSKELETAL: Normal range of motion at all joints. No bony deformities or tenderness. No CVA tenderness. LOWER EXTREMITIES: 2+ pulses, warm, well-perfused. No calf tenderness. No peripheral edema. NEUROLOGICAL: Cranial nerves II-XII intact. Normal speech. Normal gait. PSYCHIATRIC: Some confusion Laboratory Results - last 24 hr 04/10/18 04/10/18 04/10/18 22:36 22:36 22:36 WBC 6.5 RBC 3.59 L Hgb 11.5 Hct 34.7 MCV 96.6 H MCH 32.1 MCHC 33.2 RDW 14.2 Plt Count 353 MPV 8.2 Absolute Neuts (auto) 2.7 Neutrophils % 40.9 L D Lymphocytes % 44.9 H D Monocytes % 9.5 Eosinophils % 3.3 Basophils % 1.4 Nucleated RBC % 0 PT with INR 10.60 INR 0.90 Sodium Potassium Chloride Carbon Dioxide Anion Gap BUN Creatinine Creat Clearance w eGFR Random Glucose Calcium Phosphorus Magnesium Total Bilirubin AST ALT Alkaline Phosphatase Troponin I Total Protein Albumin TSH Urine Color Samara Urine Appearance Cloudy Urine pH 6.0 Ur Specific [place] 1.011 Urine Protein Negative Urine Glucose (UA) Negative Urine Ketones Negative Urine Blood Negative Urine Nitrite Negative Urine Bilirubin Negative Urine Urobilinogen Negative Ur Leukocyte Esterase 3+ H Urine WBC (Auto) 23 Urine RBC (Auto) 1 Ur Epithelial Cells Rare Hyaline Casts 3 Stool Occult Blood 04/10/18 04/11/18 22:36 00:05 WBC RBC Hgb Hct MCV MCH MCHC RDW Plt Count MPV Absolute Neuts (auto) Neutrophils % Lymphocytes % Monocytes % Eosinophils % Basophils % Nucleated RBC % PT with INR INR Sodium 141 Potassium 4.4 Chloride 107 Carbon Dioxide 28 Anion Gap 7 L BUN 12 Creatinine 0.7 Creat Clearance w eGFR > 60 Random Glucose 107 H Calcium 9.2 Phosphorus 3.8 Magnesium 2.3 Total Bilirubin 0.1 L AST 15 ALT 12 L Alkaline Phosphatase 87 Troponin I < 0.02 Total Protein 6.4 Albumin 3.4 TSH 1.01 Urine Color Urine Appearance Urine pH Ur Specific [place] Urine Protein Urine Glucose (UA) Urine Ketones Urine Blood Urine Nitrite Urine Bilirubin Urine Urobilinogen Ur Leukocyte Esterase Urine WBC (Auto) Urine RBC (Auto) Ur Epithelial Cells Hyaline Casts Stool Occult Blood Negative Current Medications Amlodipine Besylate (Norvasc -) 10 mg PO DAILY [facility] Aspirin (Ecotrin -) 81 mg PO DAILY [facility] Atorvastatin Calcium (Lipitor -) 10 mg PO HS [facility] Haloperidol (Haldol Injection (Fast Acting) -) 1 mg IM Q4H PRN PRN Reason: AGITATION Sodium Chloride (Normal Saline -) 1,000 mls @ 42 mls/hr IV ASDIR [facility] Last Admin: 04/11/18 01:49 Dose: 42 mls/hr Ceftriaxone Sodium 1 gm/ (Dextrose) 50 mls @ 100 mls/hr IVPB DAILY [facility]; Protocol Labetalol HCl (Normodyne -) 400 mg PO BID [facility] Levetiracetam (Keppra -) 500 mg PO BID [facility] Ambulatory Orders Amlodipine Besylate [Norvasc -] 10 mg PO DAILY #30 tablet 02/24/18 Aspirin [Aspirin EC] 81 mg PO DAILY 30 Days #30 tablet. 02/24/18 Atorvastatin Ca [Lipitor] 10 mg PO HS #30 tablet 02/24/18 Labetalol HCl [Normodyne -] 400 mg PO BID #60 tablet 02/24/18 Oxycodone HCl/Acetaminophen [Percocet 10-325 mg Tablet] 1 each PO Q12H PRN #1 tablet MDD 2 tab in 24 hr 02/24/18 levETIRAcetam [Keppra -] 500 mg PO BID #60 tablet 02/24/18 Previous imaging: Cardiac echo 02/06: showed nl LVEF >70%, LV normal in size and hyperdynamic. mod TR, RV mildly dilated Right ventricular systolic function was borderline reduced carotid ultrasound: moderate stenosis right carotid ASSESSMENT/PLAN: Pt is a 62 yo F with signif PMHx of HTN, HLD, opioid dependency, epilepsy , skeletal back problems (previous back sx) , panic attacks, who presenting to the ED from home by her daughter for increased agitation. Acute Metabolic encephalopathy with agitation Pt extremely agitated and agressive in ED, received haldol and ativan could be due to medications, pt appears to be on home percocet Could be due to infection-UTI Could be due to an acute psychiatric event, day team may consider Psych eval RPR, Vit B12, TSH EKG- Hx of trauma, but CT head and cervical spine -ve Pending Keppra levels 1mg haldol im Q4H PRN Fall precautions Avoid sedatives Utox Complicated UTI Positive UA-LE3+, WBC-23 Unable to verify urinary symptoms Acute change in mental status with fever with positive UA 1g ceftriaxone given in ED, continue HTN Cont labetolol 400 bid HLD Lipitor 10mg HS- LFTs normalized since last admission opioid dependency, Percocet documented among home meds Will montor epilepsy Pending keppra level Cont keppra home dose skeletal back problems (previous back sx) Hold opiates in setting of altered mental status , panic attacks Monitor FEN Gentle hydration NS @42 Monitor lytes and replete-, follow mag Sodium controlled diet PPx heparin sq Monitor closely, with gi bleed last admission Dispo: MedSur Visit type - Emergency Visit Emergency Visit: Yes ED Registration Date: 04/11/18 Care time: The patient presented to the Emergency Department on the above date and was hospitalized for further evaluation of their emergent condition. - New Patient This patient is new to me today: Yes Date on this admission: 04/11/18 - Critical Care Critical Care patient: No
[2018-04-11] MEDS: SODIUM CHLORIDE 1,000 ML IV SCH (01:49)
[2018-04-11 03:09] LABS: N-TERMINAL BNP 574.4 pg/ml (5-125)
--- NOTE | 2018-04-11 05:21 | PN ---
Teaching Attending Note Name of Resident: Anai Chandler ATTENDING PHYSICIAN STATEMENT I saw and evaluated the patient. Chart, data, imaging reviewed. I reviewed the resident's note and discussed the case with the resident. I agree with the resident's findings and plan as documented. SUBJECTIVE: 62 yo F with opioid dependency, epilepsy , skeletal back problems (previous back sx) (Fentanyl patches), panic attacks brought to hospital by daughter for increased agitation, progressive confusion, roaming around, etc. When asking pt directly, she has no complains. She said the bruise around left eye is from a fall. OBJECTIVE: Last Vital Signs Temp Pulse Resp BP Pulse Ox 97.9 F 82 20 157/87 99 04/11/18 04:30 04/11/18 04:30 04/11/18 04:30 04/11/18 04:30 04/11/18 03:39 General- nad, aaox3 heent- left perorbital ecchymosis, moist oral mucosa cv-s1+S2+rrr chest clear abdomen -soft, nt, bs+ ext-no pedal edema Abnormal Lab Results 04/10/18 04/10/18 04/10/18 22:36 22:36 22:36 RBC 3.59 L MCV 96.6 H Neutrophils % 40.9 L D Lymphocytes % 44.9 H D Anion Gap 7 L Random Glucose 107 H Total Bilirubin 0.1 L ALT 12 L B-Natriuretic Peptide 574.4 H Ur Leukocyte Esterase 3+ H CT of head and C spine reviewed- no acute fractures or other lesions noted as per [facility] read ASSESSMENT AND PLAN: 62yo woman with baseline dementia with acute delerium vs progression of her dementia. Delerium may have been induced by oxycodone as it is part of her home meds. Possible UTI as she had pyuria on UA. -observation -urine culture -ceftriaxone 1g IV q24hrs -renal U/S -vit b12, tsh, syphilis serology -bed rest -fall precautions -avoid sedatives -heparin sc for dvt ppx
[2018-04-11 07:23] LABS: BASO % 1.2 % (0-2.0); HEMATOCRIT 33.1 % (32.4-45.2); HEMOGLOBIN 10.7 GM/dL (10.7-15.3); LYMPH % 43.6 % (8-40); MCH 31.7 pg (25.7-33.7); MCHC 32.4 g/dl (32.0-36.0); MEAN CELL VOLUME 97.8 fl (80-96); NEUT % 44.2 % (42.8-82.8); PLATELET COUNT 291 K/MM3 (134-434); RBC 3.38 M/mm3 (3.60-5.2); RDW 14.1 % (11.6-15.6); WHITE BLOOD COUNT 5.5 K/mm3 (4.0-10.0)
[2018-04-11 08:37] LABS: ALK PHOS 81 U/L (45-117); ANION GAP 5 MMOL/L (8-16); BILIRUBIN,TOTAL 0.2 mg/dL (0.2-1); BLOOD UREA NITROGEN 11 mg/dL (7-18); CALCIUM 8.2 mg/dL (8.5-10.1); CHLORIDE 113 mmol/L (98-107); CO2 25 mmol/L (21-32); CREATININE 0.5 mg/dL (0.55-1.3); GLUCOSE,RANDOM 85 mg/dL (74-106); MAGNESIUM 2.2 mg/dL (1.8-2.4); PHOSPHOROUS 4.1 mg/dL (2.5-4.9); POTASSIUM 4.4 mmol/L (3.5-5.1); SGOT/AST 15 U/L (15-37); SGPT/ALT 11 U/L (13-61); SODIUM 143 mmol/L (136-145); TOT PROT 5.5 g/dl (6.4-8.2)
[2018-04-11] MEDS ORDERED: DEXTROSE 5%-WATER - 50 ML IVPB ONE (08:53)
[2018-04-11] MEDS ORDERED: cefTRIAXone SODIUM 1 GM VIAL ONE (08:53)
[2018-04-11] MEDS: amLODIPine BESYLATE 10 MG TABLET (FP) PO SCH (09:02)
[2018-04-11] MEDS: ASPIRIN COATED 81 MG TABLET.EC PO SCH (09:02)
[2018-04-11] MEDS: levETIRAcetam 500 MG TABLET (FP) PO SCH ×2 (09:02→21:51)
[2018-04-11] MEDS: LABETALOL HCL 200 MG TABLET (FP) PO SCH ×2 (09:02→21:51)
[2018-04-11] MEDS: CEFTRIAXONE 1 GM in DEXTROSE 5%-WATER - 50 ML IVPB SCH (09:03)
--- NOTE | 2018-04-11 11:07 | EKG ---
Test Reason : Blood Pressure : / mmHG Vent. Rate : 083 BPM Atrial Rate : 083 BPM P-R Int : 102 ms QRS Dur : 080 ms QT Int : 376 ms P-R-T Axes : 060 071 059 degrees QTc Int : 441 ms SINUS RHYTHM WITH SHORT VT OTHERWISE NORMAL ECG WHEN COMPARED WITH ECG OF 12-FEB-2018 08:18, T WAVE INVERSION NO LONGER EVIDENT IN ANTEROLATERAL LEADS Confirmed by ERNESTINA DENISE, MOSES ([id number]) on 04/11/2018 11:07:26 AM Referred By: Confirmed By:MOSES DO MD
[2018-04-11 11:13] LABS: COCAINE, UR NEGATIVE ng/ml (CUTOFF=300); METHADONE, UR NEGATIVE ng/ml (CUTOFF=300); OPIATES, URI NEGATIVE ng/ml (CUTOFF=300); PHENCYCLIDINE,URINE NEGATIVE ng/ml (CUTOFF=25); URINE AMPHETAMINES NEGATIVE ng/ml (CUTOFF=500); URINE BARBITURATES NEGATIVE ng/ml (CUTOFF=200)
[2018-04-11 11:17] LABS: URINE BENZODIAZEPINES POSITIVE ng/ml (CUTOFF=200)
[2018-04-11] MEDS: HEPARIN NA (PORCINE) 5,000 UNITS/ML 1ML VIAL SQ SCH ×2 (13:33→21:51)
[2018-04-11] MEDS ORDERED: clonazePAM 0.5 MG TABLET PO ONE (14:44)
[2018-04-11] MEDS ORDERED: THIAMINE HCL 200 MG/2 ML VIAL IVPB SCH (14:45)
--- NOTE | 2018-04-11 15:15 | CON.PSY ---
Psychiatry Consult Chief Complaint: 62 justa old female admitted for AMS. She apparantly been abusing as per tacos. Urine positive for Benzos. patient has a long history of Back pain. Symptoms: reports: Anxiety - Previous Psychiatric Treatment Outpatient: None Inpatient: None - Previous Substance Abuse Treatment Outpatient: None Inpatient: None - Current Medications Current Medications: Active Medications Amlodipine Besylate (Norvasc -) 10 mg PO DAILY [facility] Last Admin: 04/11/18 09:02 Dose: 10 mg Aspirin (Ecotrin -) 81 mg PO DAILY [facility] Last Admin: 04/11/18 09:02 Dose: 81 mg Atorvastatin Calcium (Lipitor -) 10 mg PO HS [facility] Haloperidol (Haldol Injection (Fast Acting) -) 1 mg IM Q4H PRN PRN Reason: AGITATION Heparin Sodium (Porcine) (Heparin -) 5,000 unit SQ TID [facility] Last Admin: 04/11/18 13:33 Dose: 5,000 unit Sodium Chloride (Normal Saline -) 1,000 mls @ 42 mls/hr IV ASDIR [facility] Last Admin: 04/11/18 01:49 Dose: 42 mls/hr Ceftriaxone Sodium 1 gm/ (Dextrose) 50 mls @ 100 mls/hr IVPB DAILY [facility]; Protocol Last Admin: 04/11/18 09:03 Dose: 100 mls/hr Labetalol HCl (Normodyne -) 400 mg PO BID [facility] Last Admin: 04/11/18 09:02 Dose: 400 mg Levetiracetam (Keppra -) 500 mg PO BID [facility] Last Admin: 04/11/18 09:02 Dose: 500 mg Thiamine HCl (Vitamin B1 Injection -) 200 mg IVPB DAILY [facility] Stop: 04/13/18 10:01 - Allergies Allergies: Allergies Allergy/AdvReac Type Severity Reaction Status Date / Time lactose AdvReac Unknown Verified 02/11/18 21:25 - Current Living Status Usual Living Arrangement: With Child - Current Mental Status Evaluation Appearance: Disheveled Attitude: Guarded - Affect Affect: Constrictive Appropriateness: Appropriate to Content - Mood Mood: Angry - Speech/Language Expressive: Coherent - Psychomotor Activity Psychomotor Activity: Hyperactive - Thought Process Thought Process: Intact - Thought Content Hallucinations: Absent Delusions: Absent - Self Perception Self Perception: No Impairment - Cognition Attention: Alert Orientation: Time Memory, Immediate Recall: Intact Memory, Short Term: 2/3 Memory, Remote with Promptin/3 - Concentration Serial Sevens Intact: No Simple Calculations Intact: Yes - Abstraction Proverb Interpretation: Intact Judgement: Minimally Impaired - Insight Insight: Intact - Impulse Control Impulse Control: Minimally Impaired - Suicidal Ideation Suicidal Ideation: No - Homicidal Ideation Homicidal Ideation: No Assessment/Plan 1) No active psych meds. 2) will follow.
--- NOTE | 2018-04-11 15:19 | PN ---
Physical Exam: SUBJECTIVE: Patient seen and examined, oriented to self only, tangential, follows few commands but unable to have a meaningful conversation. Further ROS limited. OBJECTIVE: Vital Signs Period Temp Pulse Resp BP Sys/Gruber Pulse Ox Last 24 Hr 97.0 F-98.8 F 80-107 18-20 130-164/78-87 96-99 GENERAL: Awake, oriented to self only, not to time or place, restless in bed CVS;S1S2 regular Chest: limited exam due to lack of co-operation, no rales or wheezing, positive air entry Abdomen:Soft, NT,ND Neuro: AAOx1, Mild ?left facial droop, resolves when checking for facial power, moves all extremities freely but lack of co-operation limiting further strength/ sensory exam Laboratory Results - last 24 hr 04/10/18 04/10/18 04/10/18 22:36 22:36 22:36 WBC 6.5 RBC 3.59 L Hgb 11.5 Hct 34.7 MCV 96.6 H MCH 32.1 MCHC 33.2 RDW 14.2 Plt Count 353 MPV 8.2 Absolute Neuts (auto) 2.7 Neutrophils % 40.9 L D Lymphocytes % 44.9 H D Monocytes % 9.5 Eosinophils % 3.3 Basophils % 1.4 Nucleated RBC % 0 PT with INR 10.60 INR 0.90 Sodium Potassium Chloride Carbon Dioxide Anion Gap BUN Creatinine Creat Clearance w eGFR Random Glucose Calcium Phosphorus Magnesium Total Bilirubin AST ALT Alkaline Phosphatase Troponin I B-Natriuretic Peptide Total Protein Albumin Vitamin B12 TSH Urine Color Samara Urine Appearance Cloudy Urine pH 6.0 Ur Specific [place] 1.011 Urine Protein Negative Urine Glucose (UA) Negative Urine Ketones Negative Urine Blood Negative Urine Nitrite Negative Urine Bilirubin Negative Urine Urobilinogen Negative Ur Leukocyte Esterase 3+ H Urine WBC (Auto) 23 Urine RBC (Auto) 1 Ur Epithelial Cells Rare Hyaline Casts 3 Stool Occult Blood Opiates Screen Methadone Screen Barbiturate Screen Phencyclidine Screen Ur Amphetamines Screen MDMA (Ecstasy) Screen Benzodiazepines Screen Cocaine Screen U Marijuana (THC) Screen 04/10/18 04/11/18 04/11/18 22:36 00:05 06:00 WBC 5.5 RBC 3.38 L Hgb 10.7 Hct 33.1 MCV 97.8 H MCH 31.7 MCHC 32.4 RDW 14.1 Plt Count 291 MPV 8.0 Absolute Neuts (auto) 2.4 Neutrophils % 44.2 Lymphocytes % 43.6 H Monocytes % 8.0 Eosinophils % 3.0 Basophils % 1.2 Nucleated RBC % 0 PT with INR INR Sodium 141 Potassium 4.4 Chloride 107 Carbon Dioxide 28 Anion Gap 7 L BUN 12 Creatinine 0.7 Creat Clearance w eGFR > 60 Random Glucose 107 H Calcium 9.2 Phosphorus 3.8 Magnesium 2.3 Total Bilirubin 0.1 L AST 15 ALT 12 L Alkaline Phosphatase 87 Troponin I < 0.02 B-Natriuretic Peptide 574.4 H Total Protein 6.4 Albumin 3.4 Vitamin B12 TSH 1.01 Urine Color Urine Appearance Urine pH Ur Specific [place] Urine Protein Urine Glucose (UA) Urine Ketones Urine Blood Urine Nitrite Urine Bilirubin Urine Urobilinogen Ur Leukocyte Esterase Urine WBC (Auto) Urine RBC (Auto) Ur Epithelial Cells Hyaline Casts Stool Occult Blood Negative Opiates Screen Methadone Screen Barbiturate Screen Phencyclidine Screen Ur Amphetamines Screen MDMA (Ecstasy) Screen Benzodiazepines Screen Cocaine Screen U Marijuana (THC) Screen 04/11/18 04/11/18 04/11/18 06:00 06:00 10:30 WBC RBC Hgb Hct MCV MCH MCHC RDW Plt Count MPV Absolute Neuts (auto) Neutrophils % Lymphocytes % Monocytes % Eosinophils % Basophils % Nucleated RBC % PT with INR INR Sodium 143 Potassium 4.4 Chloride 113 H Carbon Dioxide 25 Anion Gap 5 L BUN 11 Creatinine 0.5 L Creat Clearance w eGFR > 60 Random Glucose 85 Calcium 8.2 L Phosphorus 4.1 Magnesium 2.2 Total Bilirubin 0.2 AST 15 ALT 11 L Alkaline Phosphatase 81 Troponin I B-Natriuretic Peptide Total Protein 5.5 L Albumin 3.0 L Vitamin B12 958 Cancelled TSH Urine Color Urine Appearance Urine pH Ur Specific [place] Urine Protein Urine Glucose (UA) Urine Ketones Urine Blood Urine Nitrite Urine Bilirubin Urine Urobilinogen Ur Leukocyte Esterase Urine WBC (Auto) Urine RBC (Auto) Ur Epithelial Cells Hyaline Casts Stool Occult Blood Opiates Screen Negative Methadone Screen Negative Barbiturate Screen Negative Phencyclidine Screen Negative Ur Amphetamines Screen Negative MDMA (Ecstasy) Screen Negative Benzodiazepines Screen Positive A* Cocaine Screen Negative U Marijuana (THC) Screen Negative Active Medications Generic Name Dose Route Start Last Admin Trade Name Freq PRN Reason Stop Dose Admin Amlodipine Besylate 10 mg 04/11/18 10:00 04/11/18 09:02 Norvasc - PO 10 mg DAILY [facility] Administration Aspirin 81 mg 04/11/18 10:00 04/11/18 09:02 Ecotrin - PO 81 mg DAILY [facility] Administration Atorvastatin Calcium 10 mg 04/11/18 22:00 Lipitor - PO HS [facility] Haloperidol 1 mg 04/11/18 03:31 Haldol Injection (Fast Acting) - IM Q4H PRN AGITATION Heparin Sodium (Porcine) 5,000 unit 04/11/18 14:00 04/11/18 13:33 Heparin - SQ 5,000 unit TID [facility] Administration Sodium Chloride 1,000 mls @ 42 mls/hr 04/11/18 01:45 04/11/18 01:49 Normal Saline - IV 42 mls/hr ASDIR [facility] Administration Ceftriaxone Sodium 1 gm/ 50 mls @ 100 mls/hr 04/11/18 10:00 04/11/18 09:03 Dextrose IVPB 100 mls/hr DAILY [facility] Administration Protocol Labetalol HCl 400 mg 04/11/18 10:00 04/11/18 09:02 Normodyne - PO 400 mg BID [facility] Administration Levetiracetam 500 mg 04/11/18 10:00 04/11/18 09:02 Keppra - PO 500 mg BID [facility] Administration Thiamine HCl 200 mg 04/11/18 14:45 Vitamin B1 Injection - IVPB 04/13/18 10:[address] brain/C-spine - neg for acute process ASSESSMENT/PLAN: 62 yof with PMHx of HTN, HLD, opioid dependency, epilepsy , skeletal back problems (previous back sx) , panic attacks, recently admitted to [facility] with AMS suspected from opioid/benzo abuse, respiratory failure requiring intubation, PNA , QUINTEN, rhabdomyolysis, NSTEMI, Right hemiparesis, MRI with occipital CVA, admitted with AMS. -AMS, ?drug OD vs withdrawal, vs toxic metabolic encephalopathy from UTI/ dehydration vs CVA vs Seizure -HTN -HLD -Opioid dependency -Epilepsy -Panic attacks -Recent NSTEMI/respiratory failure/PNA/QUINTEN/rhabdomyolysis/Occipital CVA/GIB Plan: Drug screen could be positive from ativan received from the ED, however cannot r /o benzo use. [facility] registry reviewed #[id number], no opioid script since , no recent benzo prescriptions noted. Neurology consulted, discussed with Dr. Smith (covering for Dr. Cruz), recommended High dose thiamine for possible ETOH and clonazepam, for possible benzo withdrawal. Seizure precautions. IV thiamine, s/p clonazepam x 1. Hold off on additional benzos. Psychiatry input. Detox consult given concerns for opioid dependency/?benzo use. Ceftriaxone day 2, follow up urine cultures, IV hydration. MRI brain if fails to improve. EEG per neurology. Continue keppra Continue ASA/statin/amlodipine/labetalol DVTPPX with SCDs Dispo pending clinical improvement. Plan discussed with nursing and all questions answered. Visit type - Emergency Visit Emergency Visit: Yes ED Registration Date: 04/11/18 Care time: The patient presented to the Emergency Department on the above date and was hospitalized for further evaluation of their emergent condition. - New Patient This patient is new to me today: Yes Date on this admission: 04/11/18 - Critical Care Critical Care patient: No - Discharge Referral Referred to [facility] Med P.C.: No
[2018-04-11] MEDS: THIAMINE HCL 200 MG/2 ML VIAL IVPB SCH (16:46)
--- NOTE | 2018-04-11 17:16 | CONSULT ---
"Consult Detox [facility] Reason for Current Admission/Consult: opioid use history, benzo in urine tox screening - History History of Present Illness: Pt admitted with mental status changes, hallucinations, inappropriate behaviors at home. Pt noted to be still confused this morning-oriented X1. Pt was last admitted/discharged in January 2018, with acute opioid overdose, sepsis/pneumonia, resolved ARF. Pt has not been prescribed controlled substances since that admission. Not sure why her urine test is positive for benzo. Illicit use? Urine tox: pos only for benzo ISTOP/DUR shows percocets, fentanyl and soma-- last dispense was about 2 months ago- prior to her admission for overdose. No benzo prescriptions were dispensed. Search Terms: deborah yousif, 1955 Search Date: 04/11/2018 05:12:37 PM The Drug Utilization Report below displays all of the controlled substance prescriptions, if any, that your patient has filled in the last twelve months. The information displayed on this report is compiled from pharmacy submissions to the Department, and accurately reflects the information as submitted by the pharmacies. This report was requested by: Laura Abraham | Reference #: [id number] Others' Prescriptions Patient Name: Deborah Yousif Date: 1955 Address: [address] [place] [address] Sex: Female Rx Written Rx Dispensed Drug Quantity Days Supply Prescriber Name 01/20/2018 02/06/2018 fentanyl 75 mcg/hr patch 10 30 Chris Reese MD 01/20/2018 02/06/2018 carisoprodol 350 mg tablet 45 30 Chris Reese MD 01/20/2018 01/20/2018 oxycodone-acetaminophen 10-325 mg tablet 60 30 Chris Reese MD 12/21/2017 01/02/2018 fentanyl 75 mcg/hr patch 10 30 Chris Reese MD 12/21/2017 01/02/2018 carisoprodol 350 mg tablet 45 22 Chris Reese MD 12/21/2017 12/21/2017 oxycodone-acetaminophen 10-325 mg tablet 60 30 Chris Reese MD 11/23/2017 11/25/2017 fentanyl 75 mcg/hr patch 10 30 Chris Reese MD 11/23/2017 11/25/2017 carisoprodol 350 mg tablet 45 15 Chris Reese MD 11/23/2017 11/23/2017 oxycodone-acetaminophen 10-325 mg tablet 60 15 Chris Reese MD 09/30/2017 10/04/2017 carisoprodol 350 mg tablet 45 15 Chris Reese MD 09/30/2017 10/04/2017 fentanyl 75 mcg/hr patch 10 30 Chris Reese MD 09/30/2017 09/30/2017 oxycodone-acetaminophen 10-325 mg tablet 60 15 Chris Reese MD 08/12/2017 08/23/2017 carisoprodol 350 mg tablet 45 15 Chris Reese - Alcohol/Substance Use Hx Alcohol Use: No - Past Medical History Musculoskeletal: Yes: Chronic low back pain Assessment Plan - Diagnosis (1) Delirium Status: Acute - Plan Plan: Pt continues to be with altered mental status today. Pt is being treated for an infection. Pt denies any opioid, benzo, alcohol or illicit drug use. Urine tox was positive only for benzo- which could reflect the medication she received in the ER. Opioid prescriptions were discontinued by pain management when she was admitted with opioid overdose requiring several narcan treatments and an inpt admission for rhabdo and ARF in 01/2018. Please call us back if we can be of further assistance: [phone]"
[2018-04-11] MEDS: HALOPERIDOL LACTATE 5 MG/ML IM PRN (21:50)
[2018-04-11] MEDS: ATORVASTATIN CA 10 MG TABLET (FP) PO SCH (21:51)
[2018-04-12] MEDS: SODIUM CHLORIDE 1,000 ML IV SCH (04:58)
[2018-04-12] MEDS: HEPARIN NA (PORCINE) 5,000 UNITS/ML 1ML VIAL SQ SCH ×3 (05:01→21:28)
[2018-04-12] MEDS ORDERED: PT OWN MED DRAWER 7, Y5N ONE ×4 (09:44→14:26)
[2018-04-12 09:47] LABS: BASO % 1.1 % (0-2.0); HEMATOCRIT 34.3 % (32.4-45.2); HEMOGLOBIN 11.2 GM/dL (10.7-15.3); LYMPH % 29.9 % (8-40); MCH 31.8 pg (25.7-33.7); MCHC 32.5 g/dl (32.0-36.0); MEAN CELL VOLUME 97.8 fl (80-96); MEAN PLT VOLUME 8.9 fl (7.5-11.1); MONO % 8.6 % (3.8-10.2); NEUT % 59.4 % (42.8-82.8); PLATELET COUNT 328 K/MM3 (134-434); RBC 3.51 M/mm3 (3.60-5.2); RDW 14.4 % (11.6-15.6); WHITE BLOOD COUNT 5.1 K/mm3 (4.0-10.0)
[2018-04-12 09:59] LABS: ALBUMIN 3.3 g/dl (3.4-5.0); ALK PHOS 86 U/L (45-117); ANION GAP 5 MMOL/L (8-16); BILIRUBIN,TOTAL 0.2 mg/dL (0.2-1); BLOOD UREA NITROGEN 7 mg/dL (7-18); CALCIUM 8.7 mg/dL (8.5-10.1); CHLORIDE 111 mmol/L (98-107); CO2 28 mmol/L (21-32); CREATININE 0.5 mg/dL (0.55-1.3); GLUCOSE,RANDOM 101 mg/dL (74-106); PHOSPHOROUS 4.1 mg/dL (2.5-4.9); POTASSIUM 4.4 mmol/L (3.5-5.1); SGOT/AST 14 U/L (15-37); SGPT/ALT 12 U/L (13-61); SODIUM 144 mmol/L (136-145); TOT PROT 6.1 g/dl (6.4-8.2)
[2018-04-12] MEDS: THIAMINE HCL 200 MG/2 ML VIAL IVPB SCH ×2 (10:00→14:40)
[2018-04-12] MEDS ORDERED: DEXTROSE 5%-WATER - 50 ML IVPB ONE (11:05)
[2018-04-12] MEDS ORDERED: cefTRIAXone SODIUM 1 GM VIAL ONE (11:05)
[2018-04-12] MEDS: CEFTRIAXONE 1 GM in DEXTROSE 5%-WATER - 50 ML IVPB SCH (11:05)
[2018-04-12] MEDS: ASPIRIN COATED 81 MG TABLET.EC PO SCH (11:06)
[2018-04-12] MEDS: levETIRAcetam 500 MG TABLET (FP) PO SCH ×2 (11:06→21:29)
[2018-04-12] MEDS: amLODIPine BESYLATE 10 MG TABLET (FP) PO SCH (11:06)
[2018-04-12] MEDS: LABETALOL HCL 200 MG TABLET (FP) PO SCH ×2 (11:06→21:29)
--- NOTE | 2018-04-12 15:27 | PN ---
Teaching Attending Note Name of Resident: Juan Ash ATTENDING PHYSICIAN STATEMENT I saw and evaluated the patient. I reviewed the resident's note and discussed the case with the resident. I agree with the resident's findings and plan as documented with exceptions below. SUBJECTIVE: Patient seen and examined. More interactive, oriented to self, place, year, not to month. No complaints currently. Patient recalls having an argument with her daughter, coming to ED and reports "I lost it" then OBJECTIVE: Vital Signs Period Temp Pulse Resp BP Sys/Gruber Pulse Ox Last 24 Hr 98.1 F-98.7 F 80-89 18-21 122-142/61-76 98 Intake & Output 04/09/18 04/10/18 04/11/18 04/12/18 23:59 23:59 23:59 23:59 Intake Total 1098 486 Balance 1098 486 Weight 100 lb General: lying in bed in no acute distress HEENT: left fernando-orbital ecchymosis, resolving, EOMI, PERRL Chest: No rales or wheezing, positive air entry Abdomen:Soft, NT, ND, positive bowel sounds neuro: AAO, oriented to person, place, year, but not month, facial symmetry, tongue midline, EOMI, PERRL, power 5/5 all extremities, except RUE power 5/5 at 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 and 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, using her left hand to lift right upper extremity up, but able to hold in air against gravity, able to move her RUE in air, inconsistent exam, toes down going Active Medications Amlodipine Besylate (Norvasc -) 10 mg PO DAILY [facility] Last Admin: 04/12/18 11:06 Dose: 10 mg Aspirin (Ecotrin -) 81 mg PO DAILY [facility] Last Admin: 04/12/18 11:06 Dose: 81 mg Atorvastatin Calcium (Lipitor -) 10 mg PO HS [facility] Last Admin: 04/11/18 21:51 Dose: 10 mg Haloperidol (Haldol Injection (Fast Acting) -) 1 mg IM Q4H PRN PRN Reason: AGITATION Last Admin: 04/11/18 21:50 Dose: 1 mg Heparin Sodium (Porcine) (Heparin -) 5,000 unit SQ TID [facility] Last Admin: 04/12/18 14:28 Dose: Not Given Sodium Chloride (Normal Saline -) 1,000 mls @ 42 mls/hr IV ASDIR [facility] Last Admin: 10/22/18 04:58 Dose: 42 mls/hr Ceftriaxone Sodium 1 gm/ (Dextrose) 50 mls @ 100 mls/hr IVPB DAILY [facility]; Protocol Last Admin: 04/12/18 11:05 Dose: 100 mls/hr Labetalol HCl (Normodyne -) 400 mg PO BID [facility] Last Admin: 04/12/18 11:06 Dose: 400 mg Levetiracetam (Keppra -) 500 mg PO BID [facility] Last Admin: 04/12/18 11:06 Dose: 500 mg Thiamine HCl (Vitamin B1 Injection -) 200 mg IVPB DAILY [facility] Stop: 04/13/18 10:01 Last Admin: 04/11/18 16:46 Dose: 200 mg Laboratory Results - last 24 hr 04/12/18 04/12/18 04/12/18 06:00 06:30 09:40 WBC 5.1 RBC 3.51 L Hgb 11.2 Hct 34.3 MCV 97.8 H MCH 31.8 MCHC 32.5 RDW 14.4 Plt Count 328 MPV 8.9 D Absolute Neuts (auto) 3.0 Neutrophils % 59.4 D Lymphocytes % 29.9 D Monocytes % 8.6 Eosinophils % 1.0 Basophils % 1.1 Nucleated RBC % 0 Sodium 144 Potassium 4.4 Chloride 111 H Carbon Dioxide 28 Anion Gap 5 L BUN 7 Creatinine 0.5 L Creat Clearance w eGFR > 60 Random Glucose 101 Calcium 8.7 Phosphorus 4.1 Magnesium 2.0 Total Bilirubin 0.2 AST 14 L ALT 12 L Alkaline Phosphatase 86 Total Protein 6.1 L Albumin 3.3 L RPR Titer Nonreactive ASSESSMENT AND PLAN: 62 yof with PMHx of HTN, HLD, opioid dependency, epilepsy , skeletal back problems (previous back sx) , panic attacks, recently admitted to [facility] with AMS suspected from opioid/benzo abuse, respiratory failure requiring intubation, PNA , QUINTEN, rhabdomyolysis, NSTEMI, Right hemiparesis, MRI with occipital CVA, admitted with AMS. -AMS, ?drug OD vs withdrawal, vs toxic metabolic encephalopathy from UTI/ dehydration vs CVA vs Seizure However patient able to recall episode states "I lost it after I had an argument with my daughter" -HTN -HLD -Opioid dependency -Epilepsy -Panic attacks -Recent NSTEMI/respiratory failure/PNA/QUINTEN/rhabdomyolysis/Occipital CVA/GIB Plan: Drug screen could be positive from ativan received from the ED [employer] registry reviewed #[id number], No recent opioid prescriptions, Drug screen neg for opioids. Ceftriaxone day 3, follow up urine cultures. neurology input. d/c Thiamine after tomorrow. hold off on additional benzos. Offered MRI brain, patient declined stating "No. You go away, bye bye" ?Acute psychotic episode vs manic illness vs behavioral in the setting of reported family discord. Psychiatry/social work input. Seizure precautions. Continue keppra Detox consult appreciated. Continue ASA/statin/amlodipine/labetalol DVTPPX with SCDs Dispo PT eval and dispo planning in 24 hours if mental status continues to improve. Plan discussed with patient and all questions answered.
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
--- NOTE | 2018-04-12 20:19 | PN ---
Physical Exam: SUBJECTIVE: Patient seen and examined this morning at bedside. Received Haldol x1 overnight. Says she visited the ED because She "lost it" and her grand daughter recommended she come in. Denies Fevers, chills, chest pain, SOB, Nausea vomiting, Diarrhea. OBJECTIVE: Vital Signs Period Temp Pulse Resp BP Sys/Gruber Pulse Ox Last 24 Hr 98.1 F-98.7 F 80-89 19-21 122-142/61-76 98 GENERAL: NAD HEAD: Left Damaris-Orbital ecchymosis, No other signs of trauma noted EYES: PERRL, EOMI ENT: Oropharynx clear without exudates, moist mucous membranes. NECK: No JVD LUNGS: Breath sounds equal, clear to auscultation bilaterally, no wheezes HEART: Regular rate and rhythm, S1, S2 without murmur ABDOMEN: Soft, nontender, nondistended, + bowel sounds, no guarding EXTREMITIES: 2+ pulses, no edema. NEUROLOGICAL: Cranial nerves II through XII grossly intact. Normal speech. 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 Gross sensation intact globally. SKIN: Warm, dry Laboratory Results - last 24 hr 04/12/18 04/12/18 04/12/18 06:00 06:30 09:40 WBC 5.1 RBC 3.51 L Hgb 11.2 Hct 34.3 MCV 97.8 H MCH 31.8 MCHC 32.5 RDW 14.4 Plt Count 328 MPV 8.9 D Absolute Neuts (auto) 3.0 Neutrophils % 59.4 D Lymphocytes % 29.9 D Monocytes % 8.6 Eosinophils % 1.0 Basophils % 1.1 Nucleated RBC % 0 Sodium 144 Potassium 4.4 Chloride 111 H Carbon Dioxide 28 Anion Gap 5 L BUN 7 Creatinine 0.5 L Creat Clearance w eGFR > 60 Random Glucose 101 Calcium 8.7 Phosphorus 4.1 Magnesium 2.0 Total Bilirubin 0.2 AST 14 L ALT 12 L Alkaline Phosphatase 86 Total Protein 6.1 L Albumin 3.3 L RPR Titer Nonreactive Microbiology 04/10/18 22:36 Urine - Urine Clean Catch Urine Culture - Preliminary Group D Strep Or Entero Coccus Active Medications Amlodipine Besylate (Norvasc -) 10 mg PO DAILY [facility] Last Admin: 04/12/18 11:06 Dose: 10 mg Aspirin (Ecotrin -) 81 mg PO DAILY [facility] Last Admin: 04/12/18 11:06 Dose: 81 mg Atorvastatin Calcium (Lipitor -) 10 mg PO HS [facility] Last Admin: 04/11/18 21:51 Dose: 10 mg Haloperidol (Haldol Injection (Fast Acting) -) 1 mg IM Q4H PRN PRN Reason: AGITATION Last Admin: 04/11/18 21:50 Dose: 1 mg Heparin Sodium (Porcine) (Heparin -) 5,000 unit SQ TID [facility] Last Admin: 04/12/18 14:28 Dose: Not Given Sodium Chloride (Normal Saline -) 1,000 mls @ 42 mls/hr IV ASDIR [facility] Last Admin: 04/12/18 04:58 Dose: 42 mls/hr Ceftriaxone Sodium 1 gm/ (Dextrose) 50 mls @ 100 mls/hr IVPB DAILY [facility]; Protocol Last Admin: 04/12/18 11:05 Dose: 100 mls/hr Labetalol HCl (Normodyne -) 400 mg PO BID [facility] Last Admin: 04/12/18 11:06 Dose: 400 mg Levetiracetam (Keppra -) 500 mg PO BID [facility] Last Admin: 04/12/18 11:06 Dose: 500 mg Thiamine HCl (Vitamin B1 Injection -) 200 mg IVPB DAILY [facility] Stop: 04/13/18 10:01 Last Admin: 04/12/18 14:40 Dose: 200 mg IMAGING: -EKG: SINUS RHYTHM WITH SHORT WY, OTHERWISE NORMAL ECG, VR 83, QTc 441 -CT C-Spine without contrast: No fracture or acute pathology. -CT Head without Contrast: No evidence of acute intracranial pathology. -CXR: Marked improvement since prior study. No acute chest pathology ASSESSMENT/PLAN: 62 y/o F with PMHx of HTN, HLD, opioid dependency, epilepsy, skeletal back problems (previous back sx), panic attacks, who presented to [facility] from home by her daughter for increased agitation. 1. Acute Metabolic encephalopathy -Received haldol and ativan in ED for extreme Agitation -Consider Medication induced VS UTI VS acute psychiatric event -Drug screen positive for Benzo's, Possibly due to receiveing Ativan in ED -RPR, Vit B12, TSH noted -EKG: SINUS RHYTHM WITH SHORT WY, OTHERWISE NORMAL ECG, VR 83, QTc 441 -CT C-Spine, CT Head negative -Keppra levels Pending -1mg haldol im Q4H PRN -IV NS @ 42 mls/hr -Thiamine -Fall precautions -Neurology (Dr. Baker) Consulted, Appreciate Rec's, Continue to follow psych recommendation, I would do eeg -Psychiatry (Dr. Garza) consulted, Appreciate Rec's -Detox (Dr. Abraham) consulted, Appreciate Rec's -Left messages to speak with both the daughter and the sister 2. UTI -UA:LE 3+, WBC 23 -Currently denying symptoms however mental status not at baseline -Continue Ceftriaxone (Started on 04/10) 3. HTN -Continue labetolol, Norvasc 4. HLD -Continue Lipitor 5. Epilepsy -Keppra level Pending -Neurology (Dr. Baker) Consulted, Appreciate Rec's, Continue same dose of keppra -Continue home dose keppra 6. FEN -IV NS @ 42 mls/hr -lytes wnl -Sodium controlled diet 7. PPx -DVT: Heparin Dispo: Med-Surg Visit type - Emergency Visit Emergency Visit: Yes ED Registration Date: 04/11/18 Care time: The patient presented to the Emergency Department on the above date and was hospitalized for further evaluation of their emergent condition. - New Patient This patient is new to me today: Yes Date on this admission: 04/12/18 - Critical Care Critical Care patient: No - Discharge Referral Referred to [facility] Med [facility].C.: No
[2018-04-12] MEDS ORDERED: MELATONIN 5 MG TABLETS PO ONE (20:25)
[2018-04-12] MEDS: ATORVASTATIN CA 10 MG TABLET (FP) PO SCH (21:29)
[2018-04-13] MEDS: HALOPERIDOL LACTATE 5 MG/ML IM PRN ×5 (00:04→22:50)
[2018-04-13] MEDS: SODIUM CHLORIDE 1,000 ML IV SCH (06:04)
[2018-04-13] MEDS: HEPARIN NA (PORCINE) 5,000 UNITS/ML 1ML VIAL SQ SCH ×3 (06:04→21:47)
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
--- NOTE | 2018-04-13 09:18 | PN ---
Teaching Attending Note Name of Resident: Debbie Mcmahon ATTENDING PHYSICIAN STATEMENT I saw and evaluated the patient. I reviewed the resident's note and discussed the case with the resident. I agree with the resident's findings and plan as documented with exceptions below. SUBJECTIVE: Patient seen and examined. no complaints, oriented to person, place, year, not month, no complaints. OBJECTIVE: Vital Signs Period Temp Pulse Resp BP Sys/Gruber Pulse Ox Last 24 Hr 98.1 F-98.7 F 79-86 18-20 122-149/61-76 97-97 Intake & Output 04/10/18 04/11/18 04/12/18 04/13/18 23:59 23:59 23:59 23:59 Intake Total 1098 1316 Balance 1098 1316 Weight 100 lb General: sitting in bed in no acute distress HEENT: resolving left fernando-orbital ecchymosis Chest: CTAB no rales or wheezing Abdomen: soft, NT, ND, positive bowel sounds Neuro: AAO to person, place, year, not month, unchanged exam otherwise Home Medications Medication Instructions Recorded Amlodipine Besylate [Norvasc -] 10 mg PO DAILY #30 tablet 02/24/18 Aspirin [Aspirin EC] 81 mg PO DAILY 30 Days #30 02/24/18 tablet. Atorvastatin Ca [Lipitor] 10 mg PO HS #30 tablet 02/24/18 Labetalol HCl [Normodyne -] 400 mg PO BID #60 tablet 02/24/18 Oxycodone HCl/Acetaminophen 1 each PO Q12H PRN #1 tablet MDD 2 02/24/18 [Percocet 10-325 mg Tablet] tab in 24 hr levETIRAcetam [Keppra -] 500 mg PO BID #60 tablet 02/24/18 Active Medications Amlodipine Besylate (Norvasc -) 10 mg PO DAILY [facility] Last Admin: 04/12/18 11:06 Dose: 10 mg Aspirin (Ecotrin -) 81 mg PO DAILY [facility] Last Admin: 04/12/18 11:06 Dose: 81 mg Atorvastatin Calcium (Lipitor -) 10 mg PO HS [facility] Last Admin: 04/12/18 21:29 Dose: 10 mg Haloperidol (Haldol Injection (Fast Acting) -) 1 mg IM Q4H PRN PRN Reason: AGITATION Last Admin: 04/13/18 07:44 Dose: 1 mg Heparin Sodium (Porcine) (Heparin -) 5,000 unit SQ TID [facility] Last Admin: 04/13/18 06:04 Dose: Not Given Sodium Chloride (Normal Saline -) 1,000 mls @ 42 mls/hr IV ASDIR [facility] Last Admin: 04/13/18 06:04 Dose: 42 mls/hr Ceftriaxone Sodium 1 gm/ (Dextrose) 50 mls @ 100 mls/hr IVPB DAILY [facility]; Protocol Last Admin: 04/12/18 11:05 Dose: 100 mls/hr Labetalol HCl (Normodyne -) 400 mg PO BID [facility] Last Admin: 04/12/18 21:29 Dose: 400 mg Levetiracetam (Keppra -) 500 mg PO BID [facility] Last Admin: 04/12/18 21:29 Dose: 500 mg Thiamine HCl (Vitamin B1 Injection -) 200 mg IVPB DAILY [facility] Stop: 04/13/18 10:01 Last Admin: 04/12/18 14:40 Dose: 200 mg Laboratory Results - last 24 hr 04/12/18 04/12/18 04/12/18 06:00 06:30 09:40 WBC 5.1 RBC 3.51 L Hgb 11.2 Hct 34.3 MCV 97.8 H MCH 31.8 MCHC 32.5 RDW 14.4 Plt Count 328 MPV 8.9 D Absolute Neuts (auto) 3.0 Neutrophils % 59.4 D Lymphocytes % 29.9 D Monocytes % 8.6 Eosinophils % 1.0 Basophils % 1.1 Nucleated RBC % 0 Sodium 144 Potassium 4.4 Chloride 111 H Carbon Dioxide 28 Anion Gap 5 L BUN 7 Creatinine 0.5 L Creat Clearance w eGFR > 60 Random Glucose 101 Calcium 8.7 Phosphorus 4.1 Magnesium 2.0 Total Bilirubin 0.2 AST 14 L ALT 12 L Alkaline Phosphatase 86 Total Protein 6.1 L Albumin 3.3 L TSH RPR Titer Nonreactive 04/13/18 07:20 WBC RBC Hgb Hct MCV MCH MCHC RDW Plt Count MPV Absolute Neuts (auto) Neutrophils % Lymphocytes % Monocytes % Eosinophils % Basophils % Nucleated RBC % Sodium Potassium Chloride Carbon Dioxide Anion Gap BUN Creatinine Creat Clearance w eGFR Random Glucose Calcium Phosphorus Magnesium Total Bilirubin AST ALT Alkaline Phosphatase Total Protein Albumin TSH 0.91 RPR Titer Microbiology 04/10/18 22:36 Urine - Urine Clean Catch Urine Culture - Final Streptococcus Salivarius ASSESSMENT AND PLAN: 62 yof with PMHx of HTN, HLD, opioid dependency, epilepsy , skeletal back problems (previous back sx) , panic attacks, recently admitted to [facility] with AMS suspected from opioid/benzo abuse, respiratory failure requiring intubation, PNA , QUINTEN, rhabdomyolysis, NSTEMI, Right hemiparesis, MRI with occipital CVA, admitted with AMS. -AMS, ?drug OD vs withdrawal, vs toxic metabolic encephalopathy from UTI/ dehydration vs CVA vs Seizure However patient able to recall episode states "I lost it after I had an argument with my daughter" -HTN -HLD -Opioid dependency -Epilepsy -Panic attacks -Recent NSTEMI/respiratory failure/PNA/QUINTEN/rhabdomyolysis/Occipital CVA/GIB Plan: Drug screen could be positive from ativan received from the ED [employer] registry reviewed #[id number], No recent opioid prescriptions, Drug screen neg for opioids. Ceftriaxone day 4, urine cultures noted, d/c abx. s/p 3 days of IV thiamine, d/c after today hold off on additional benzos. Offered MRI brain, patient declined stating "No. You go away, bye bye" Neurology input appreciated, EEG per neurology. Continue keppra. Seizure precautions ?Acute psychotic episode vs manic illness vs behavioral in the setting of reported family discord. Psychiatry/social work input. Detox consult appreciated. Continue ASA/statin/amlodipine/labetalol DVTPPX with SCDs Dispo PT eval noted. dc home with services in 24 hours if no new concerns. Plan discussed with patient and all questions answered.
[2018-04-13] MEDS ORDERED: cefTRIAXone SODIUM 1 GM VIAL ONE (11:39)
[2018-04-13] MEDS ORDERED: PT OWN MED DRAWER 7, Y5N ONE (11:39)
[2018-04-13] MEDS ORDERED: DEXTROSE 5%-WATER - 50 ML IVPB ONE (11:39)
[2018-04-13] MEDS: CEFTRIAXONE 1 GM in DEXTROSE 5%-WATER - 50 ML IVPB SCH (11:52)
[2018-04-13] MEDS: amLODIPine BESYLATE 10 MG TABLET (FP) PO SCH (11:53)
[2018-04-13] MEDS: LABETALOL HCL 200 MG TABLET (FP) PO SCH ×2 (11:53→21:47)
[2018-04-13] MEDS: ASPIRIN COATED 81 MG TABLET.EC PO SCH (11:53)
[2018-04-13] MEDS: THIAMINE HCL 200 MG/2 ML VIAL IVPB SCH (11:53)
[2018-04-13] MEDS: levETIRAcetam 500 MG TABLET (FP) PO SCH ×2 (11:53→21:47)
[2018-04-13] MEDS: ACETAMINOPHEN 325 MG TABLET (FP) PO PRN ×2 (14:40→20:40)
[2018-04-13 14:55] VITALS: BMI 17.1
--- NOTE | 2018-04-13 19:38 | PN ---
Physical Exam: SUBJECTIVE: Patient seen and examined this morning at bedside. Received Haldol x1 overnight. No new complaints overnight. Denies Fevers, chills, chest pain, SOB, Nausea vomiting, Diarrhea. OBJECTIVE: Vital Signs Period Temp Pulse Resp BP Sys/Gruber Pulse Ox Last 24 Hr 98.5 F-99.0 F 76-83 18-18 132-149/69-77 97-98 GENERAL: A&Ox2 to person and place, not month, NAD HEAD: Left Damaris-Orbital ecchymosis, No other signs of trauma noted EYES: PERRL, EOMI ENT: Oropharynx clear without exudates, moist mucous membranes. NECK: No JVD LUNGS: Breath sounds equal, clear to auscultation bilaterally, no wheezes HEART: Regular rate and rhythm, S1, S2 without murmur ABDOMEN: Soft, nontender, nondistended, + bowel sounds, no guarding EXTREMITIES: 2+ pulses, no edema. NEUROLOGICAL: Cranial nerves II through XII grossly intact. Normal speech. 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 Gross sensation intact globally. SKIN: Warm, dry Laboratory Results - last 24 hr 04/13/18 07:20 TSH 0.91 Microbiology 04/10/18 22:36 Urine - Urine Clean Catch Urine Culture - Final Streptococcus Salivarius Active Medications Acetaminophen (Tylenol -) 650 mg PO Q6H PRN PRN Reason: Fever Or Pain Last Admin: 04/13/18 14:40 Dose: 650 mg Amlodipine Besylate (Norvasc -) 10 mg PO DAILY [facility] Last Admin: 04/13/18 11:53 Dose: 10 mg Aspirin (Ecotrin -) 81 mg PO DAILY [facility] Last Admin: 04/13/18 11:53 Dose: 81 mg Atorvastatin Calcium (Lipitor -) 10 mg PO HS [facility] Last Admin: 04/12/18 21:29 Dose: 10 mg Haloperidol (Haldol Injection (Fast Acting) -) 1 mg IM Q4H PRN PRN Reason: AGITATION Last Admin: 04/13/18 16:06 Dose: 1 mg Heparin Sodium (Porcine) (Heparin -) 5,000 unit SQ TID [facility] Last Admin: 04/13/18 14:09 Dose: Not Given Sodium Chloride (Normal Saline -) 1,000 mls @ 42 mls/hr IV ASDIR [facility] Last Admin: 04/13/18 06:04 Dose: 42 mls/hr Labetalol HCl (Normodyne -) 400 mg PO BID [facility] Last Admin: 04/13/18 11:53 Dose: 400 mg Levetiracetam (Keppra -) 500 mg PO BID [facility] Last Admin: 04/13/18 11:53 Dose: 500 mg IMAGING: -EKG: SINUS RHYTHM WITH SHORT OK, OTHERWISE NORMAL ECG, VR 83, QTc 441 -CT C-Spine without contrast: No fracture or acute pathology. -CT Head without Contrast: No evidence of acute intracranial pathology. -CXR: Marked improvement since prior study. No acute chest pathology ASSESSMENT/PLAN: 62 y/o F with PMHx of HTN, HLD, opioid dependency, epilepsy, skeletal back problems (previous back sx), panic attacks, who presented to [facility] from home by her daughter for increased agitation. 1. Acute Metabolic encephalopathy -Received haldol and ativan in ED for extreme Agitation -Consider Medication induced VS UTI VS acute psychiatric event -Drug screen positive for Benzo's, Possibly due to receiveing Ativan in ED -RPR, Vit B12, TSH noted -EKG: SINUS RHYTHM WITH SHORT OK, OTHERWISE NORMAL ECG, VR 83, QTc 441 -CT C-Spine, CT Head negative -Keppra levels Pending -1mg haldol im Q4H PRN -IV NS @ 42 mls/hr -Completed 3 days of IV Thiamine -Fall precautions -Neurology (Dr. Baker) Consulted, Appreciate Rec's, Continue to follow psych recommendation, Folate, TSH, EEG, No need for MRI at this time -Psychiatry (Dr. Garza) consulted, Appreciate Rec's, Patient needs outpatient follow up -Detox (Dr. Abraham) consulted, Appreciate Rec's 2. UTI -UA:LE 3+, WBC 23. -Urine Cx: Streptococcus Salivarius -Currently denying symptoms however mental status not at baseline -Continue Ceftriaxone (Started on 04/10) 3. HTN -Continue labetolol, Norvasc 4. HLD -Continue Lipitor 5. Epilepsy -Keppra level Pending -Neurology (Dr. Baker) Consulted, Appreciate Rec's -Continue home dose keppra 6. FEN -IV NS @ 42 mls/hr -lytes wnl -Sodium controlled diet 7. PPx -DVT: Heparin Dispo: Likely d/c tmrw Visit type - Emergency Visit Emergency Visit: Yes ED Registration Date: 04/11/18 Care time: The patient presented to the Emergency Department on the above date and was hospitalized for further evaluation of their emergent condition. - New Patient This patient is new to me today: No - Critical Care Critical Care patient: No - Discharge Referral Referred to [facility] Med P.C.: No
[2018-04-13] MEDS: ATORVASTATIN CA 10 MG TABLET (FP) PO SCH (21:47)
[2018-04-14] MEDS: ACETAMINOPHEN 325 MG TABLET (FP) PO PRN ×2 (03:56→10:05)
[2018-04-14] MEDS: SODIUM CHLORIDE 1,000 ML IV SCH ×2 (06:00→06:02)
[2018-04-14] MEDS: HEPARIN NA (PORCINE) 5,000 UNITS/ML 1ML VIAL SQ SCH ×2 (06:03→14:30)
[2018-04-14] MEDS: HALOPERIDOL LACTATE 5 MG/ML IM PRN (06:04)
--- NOTE | 2018-04-14 08:24 | PN ---
Teaching Attending Note Name of Resident: Debbie Mcmahon ATTENDING PHYSICIAN STATEMENT I saw and evaluated the patient. I reviewed the resident's note and discussed the case with the resident. I agree with the resident's findings and plan as documented with exceptions below. SUBJECTIVE: Patient seen and examined. no complaints. OBJECTIVE: Vital Signs Period Temp Pulse Resp BP Sys/Gruber Pulse Ox Last 24 Hr 97.9 F-99.0 F 75-88 18-18 106-140/63-79 98-99 Intake & Output 04/11/18 04/12/18 04/13/18 04/14/18 23:59 23:59 23:59 23:59 Intake Total 1098 1316 920 200 Balance 1098 1316 920 200 Weight 103 lb general: sitting in bed in no acute distress, HEENT: resolving left fernando-orbital ecchymosis Chest: CTAB, no rales or wheezing Abdomen; soft, NT, ND extremities: no edema Active Medications Acetaminophen (Tylenol -) 650 mg PO Q6H PRN PRN Reason: Fever Or Pain Last Admin: 04/14/18 03:56 Dose: 650 mg Amlodipine Besylate (Norvasc -) 10 mg PO DAILY [facility] Last Admin: 04/13/18 11:53 Dose: 10 mg Aspirin (Ecotrin -) 81 mg PO DAILY [facility] Last Admin: 04/13/18 11:53 Dose: 81 mg Atorvastatin Calcium (Lipitor -) 10 mg PO HS [facility] Last Admin: 04/13/18 21:47 Dose: 10 mg Haloperidol (Haldol Injection (Fast Acting) -) 1 mg IM Q4H PRN PRN Reason: AGITATION Last Admin: 04/14/18 06:04 Dose: 1 mg Heparin Sodium (Porcine) (Heparin -) 5,000 unit SQ TID [facility] Last Admin: 04/14/18 06:03 Dose: Not Given Labetalol HCl (Normodyne -) 400 mg PO BID [facility] Last Admin: 04/13/18 21:47 Dose: 400 mg Levetiracetam (Keppra -) 500 mg PO BID [facility] Last Admin: 04/13/18 21:47 Dose: 500 mg Laboratory Results - last 24 hr 04/13/18 07:20 TSH 0.91 Keppra level pending ASSESSMENT AND PLAN: 62 yof with PMHx of HTN, HLD, opioid dependency, epilepsy , skeletal back problems (previous back sx) , panic attacks, recently admitted to [facility] with AMS suspected from opioid/benzo abuse, respiratory failure requiring intubation, PNA , QUINTEN, rhabdomyolysis, NSTEMI, Right hemiparesis, MRI with occipital CVA, admitted with AMS. -AMS, ?drug OD vs withdrawal, vs toxic metabolic encephalopathy from UTI/ dehydration vs CVA vs Seizure However patient able to recall episode states "I lost it after I had an argument with my daughter" -HTN -HLD -Opioid dependency -Epilepsy -Panic attacks -Recent NSTEMI/respiratory failure/PNA/QUINTEN/rhabdomyolysis/Occipital CVA/GIB Plan: Drug screen could be positive from ativan received from the [facility] registry reviewed #[id number], No recent opioid prescriptions, Drug screen neg for opioids. Ceftriaxone day 4, urine cultures noted,off abx s/p 3 days of IV thiamine, d/c after today hold off on additional benzos. Offered MRI brain, patient declined stating "No. You go away, bye bye" Neurology input appreciated, EEG per neurology, can be done outpatient. Continue keppra. Seizure precautions ?Acute psychotic episode vs manic illness vs behavioral in the setting of reported family discord. Psychiatry/social work input. Detox consult appreciated. Continue ASA/statin/amlodipine/labetalol DVTPPX with SCDs Dispo PT eval noted. dc home with services today, discussed with social work. Care co-ordinated with grand daughter. Plan discussed with patient and all questions answered.
[2018-04-14] MEDS: amLODIPine BESYLATE 10 MG TABLET (FP) PO SCH (09:51)
[2018-04-14] MEDS: ASPIRIN COATED 81 MG TABLET.EC PO SCH (09:51)
[2018-04-14] MEDS: LABETALOL HCL 200 MG TABLET (FP) PO SCH (09:51)
[2018-04-14] MEDS: levETIRAcetam 500 MG TABLET (FP) PO SCH (09:51)
--- NOTE | 2018-04-14 12:51 | DS ---
Physical Exam: SUBJECTIVE: Patient seen and examined this morning at bedside. No new complaints overnight. No acute overnight events as per nursing. OBJECTIVE: Vital Signs Period Temp Pulse Resp BP Sys/Gruber Pulse Ox Last 24 Hr 97.9 F-99.0 F 75-88 18-20 106-141/63-79 99 PHYSICAL EXAM GENERAL: A&Ox2 to person and place, not month, NAD HEAD: Left Damaris-Orbital ecchymosis, No other signs of trauma noted EYES: PERRL, EOMI ENT: Oropharynx clear without exudates, moist mucous membranes. NECK: No JVD LUNGS: Breath sounds equal, clear to auscultation bilaterally, no wheezes HEART: Regular rate and rhythm, S1, S2 without murmur ABDOMEN: Soft, nontender, nondistended, + bowel sounds, no guarding EXTREMITIES: 2+ pulses, no edema. NEUROLOGICAL: Cranial nerves II through XII grossly intact. Normal speech. 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 Gross sensation intact globally. SKIN: Warm, dry Laboratory Last Values WBC 5.1 K/mm3 (4.0-10.0) 04/12/18 09:40 RBC 3.51 M/mm3 (3.60-5.2) L 04/12/18 09:40 Hgb 11.2 GM/dL (10.7-15.3) 04/12/18 09:40 Hct 34.3 % (32.4-45.2) 04/12/18 09:40 MCV 97.8 fl (80-96) H 04/12/18 09:40 MCH 31.8 pg (25.7-33.7) 04/12/18 09:40 MCHC 32.5 g/dl (32.0-36.0) 04/12/18 09:40 RDW 14.4 % (11.6-15.6) 04/12/18 09:40 Plt Count 328 K/MM3 (134-434) 04/12/18 09:40 MPV 8.9 fl (7.5-11.1) D 04/12/18 09:40 Absolute Neuts (auto) 3.0 K/mm3 (1.5-8.0) 04/12/18 09:40 Neutrophils % 59.4 % (42.8-82.8) D 04/12/18 09:40 Lymphocytes % 29.9 % (8-40) D 04/12/18 09:40 Monocytes % 8.6 % (3.8-10.2) 04/12/18 09:40 Eosinophils % 1.0 % (0-4.5) 04/12/18 09:40 Basophils % 1.1 % (0-2.0) 04/12/18 09:40 Nucleated RBC % 0 % (0-0) 04/12/18 09:40 PT with INR 10.60 SEC (9.7-13.0) 04/10/18 22:36 INR 0.90 (0.83-1.09) 04/10/18 22:36 Sodium 144 mmol/L (136-145) 04/12/18 06:30 Potassium 4.4 mmol/L (3.5-5.1) 04/12/18 06:30 Chloride 111 mmol/L (98-107) H 04/12/18 06:30 Carbon Dioxide 28 mmol/L (21-32) 04/12/18 06:30 Anion Gap 5 MMOL/L (8-16) L 04/12/18 06:30 BUN 7 mg/dL (7-18) 04/12/18 06:30 Creatinine 0.5 mg/dL (0.55-1.3) L 04/12/18 06:30 Creat Clearance w eGFR > 60 (>60) 04/12/18 06:30 Random Glucose 101 mg/dL (74-106) 04/12/18 06:30 Calcium 8.7 mg/dL (8.5-10.1) 04/12/18 06:30 Phosphorus 4.1 mg/dL (2.5-4.9) 04/12/18 06:30 Magnesium 2.0 mg/dL (1.8-2.4) 04/12/18 06:30 Total Bilirubin 0.2 mg/dL (0.2-1) 04/12/18 06:30 AST 14 U/L (15-37) L 04/12/18 06:30 ALT 12 U/L (13-61) L 04/12/18 06:30 Alkaline Phosphatase 86 U/L (45-117) 04/12/18 06:30 Troponin I < 0.02 ng/ml (0.00-0.05) 04/10/18 22:36 B-Natriuretic Peptide 574.4 pg/ml (5-125) H 04/10/18 22:36 Total Protein 6.1 g/dl (6.4-8.2) L 04/12/18 06:30 Albumin 3.3 g/dl (3.4-5.0) L 04/12/18 06:30 Vitamin B12 958 pg/ml (193-986) 04/11/18 06:00 TSH 0.91 uIU/ml (0.358-3.74) 04/13/18 07:20 Urine Color Samara 04/10/18 22:36 Urine Appearance Cloudy 04/10/18 22:36 Urine pH 6.0 (5.0-8.0) 04/10/18 22:36 Ur Specific Mammoth 1.011 (1.010-1.035) 04/10/18 22:36 Urine Protein Negative (NEGATIVE) 04/10/18 22:36 Urine Glucose (UA) Negative (NEGATIVE) 04/10/18 22:36 Urine Ketones Negative (NEGATIVE) 04/10/18 22:36 Urine Blood Negative (NEGATIVE) 04/10/18 22:36 Urine Nitrite Negative (NEGATIVE) 04/10/18 22:36 Urine Bilirubin Negative (<2.0 mg/dL) 04/10/18 22:36 Urine Urobilinogen Negative mg/dL (0.2-1.0) 04/10/18 22:36 Ur Leukocyte Esterase 3+ (NEGATIVE) H 04/10/18 22:36 Urine WBC (Auto) 23 /hpf (3-5) 04/10/18 22:36 Urine RBC (Auto) 1 /hpf (0-3) 04/10/18 22:36 Ur Epithelial Cells Rare /HPF (FEW) 04/10/18 22:36 Hyaline Casts 3 /lpf 04/10/18 22:36 Stool Occult Blood Negative (NEGATIVE) 04/11/18 00:05 Opiates Screen Negative ng/ml (STPKFN=717) 04/11/18 10:30 Methadone Screen Negative ng/ml (HEMSPU=963) 04/11/18 10:30 Barbiturate Screen Negative ng/ml (FSMCMF=284) 04/11/18 10:30 Levetiracetam None detected MCG/ML (10.0-40.0) 04/10/18 22:36 Phencyclidine Screen Negative ng/ml (CUTOFF=25) 04/11/18 10:30 Ur Amphetamines Screen Negative ng/ml (GRFGPC=075) 04/11/18 10:30 MDMA (Ecstasy) Screen Negative ng/ml (MZACFA=300) 04/11/18 10:30 Benzodiazepines Screen Positive ng/ml (ZCIILP=635) A* 04/11/18 10:30 Cocaine Screen Negative ng/ml (CGNSDP=130) 04/11/18 10:30 U Marijuana (THC) Screen Negative ng/ml (CUTOFF=50) 04/11/18 10:30 Alcohol, Quantitative < 3.0 mg/dL (0.0-5.0) 04/11/18 15:00 RPR Titer Nonreactive (NONREACTIVE) 04/12/18 06:00 Microbiology 04/10/18 22:36 Urine - Urine Clean Catch Urine Culture - Final Streptococcus Salivarius IMAGING: -EKG: SINUS RHYTHM WITH SHORT DC, OTHERWISE NORMAL ECG, VR 83, QTc 441 -CT C-Spine without contrast: No fracture or acute pathology. -CT Head without Contrast: No evidence of acute intracranial pathology. -CXR: Marked improvement since prior study. No acute chest pathology HOSPITAL COURSE: Date of Admission:04/11/18 Date of Discharge: 04/14/18 62 y/o F with PMHx of HTN, HLD, opioid dependency, epilepsy, skeletal back problems (previous back sx), panic attacks presented to [facility] from home by her daughter for increased agitation. Imaging was done noted above. Patient received Ativan and Haldol during her stay for agitation. Neurology was consulted and recommended Psych referral and outpatient EEG. Psychiatry was consulted and recommended outpatient follow up, however, noted that this is more likely a behavioral problem. Initial lab work reveal a positive UA and a Urine culture that grew Streptococcus Salivarius. Patient was treated with Ceftriaxone for 5 days. Patient was discharged home with strict instructions to follow up with her PCP for pending lab work, Psychiatry, Neurology and Detox medicine. Minutes to complete discharge: 40 Discharge Summary Reason For Visit: URINARY TRACT INFECTION/DELIRIUM Current Active Problems Delirium (Acute) UTI (urinary tract infection) (Acute) Condition: Good - Instructions Diet, Activity, Other Instructions: You were in the hospital because you had altered mental status. You need to follow up with your primary care doctor in 1 week. You need to follow up with your neurologist, Dr. Baker in 1 week. You need to follow up with a detox specialist, Dr. Abraham as an outpatient. Make sure you take your Keppra. Keppra levels are pending. Follow up with your neurologist to discuss outpatient EEG and further management of your medications. ACTIVITY: Do not drive, operate heavy machinery and avoid being in water, on heights or with children alone. If you have new symptoms or if your symptoms return, please call your doctor or return to the emergency department. Referrals: Brendon Baker MD [Staff Physician] - 1 Week Laura Abraham MD [Staff Physician] - 1 Week Disposition: VNS/HOME HEALTH CARE - Home Medications Comprehensive Discharge Medication List: Ambulatory Orders Amlodipine Besylate [Norvasc -] 10 mg PO DAILY #30 tablet 02/24/18 Aspirin [Aspirin EC] 81 mg PO DAILY 30 Days #30 tablet. 02/24/18 Atorvastatin Ca [Lipitor] 10 mg PO HS #30 tablet 02/24/18 Labetalol HCl [Normodyne -] 400 mg PO BID #60 tablet 02/24/18 levETIRAcetam [Keppra -] 500 mg PO BID #60 tablet 02/24/18 This patient is new to me today: No Emergency Visit: Yes ED Registration Date: 04/11/18 Care time: The patient presented to the Emergency Department on the above date and was hospitalized for further evaluation of their emergent condition. Critical Care patient: No - Discharge Referral Referred to [facility] Med P.C.: No
[2018-04-14 14:37] VITALS: BP 114/58; PULSE 71; TEMP 97.9
== END 2018-04-14 14:53 | disposition home health service (06) | DRG 751 ==
LOC: JER 21:27 → JERBED 04-11 01:16 → J5S 04-11 04:24
PROVIDERS: ADMIT Internal Medicine; ATTEND Hospitalist
DX: F29 Unspecified psychosis not due to a substance or known physiological condition (principal); N39.0 Urinary tract infection, site not specified; I10 Essential (primary) hypertension; E78.5 Hyperlipidemia, unspecified; F11.20 Opioid dependence, uncomplicated; G40.909 Epilepsy, unspecified, not intractable, without status epilepticus; F41.0 Panic disorder [episodic paroxysmal anxiety]; G93.41 Metabolic encephalopathy; R44.3 Hallucinations, unspecified; G81.91 Hemiplegia, unspecified affecting right dominant side; F17.210 Nicotine dependence, cigarettes, uncomplicated
CPT/HCPCS: 36415; 70450-TC; 71045-TC-FY; 72125-TC; 80053; 80177; 80307; 81003; 81015; 82272; 82607; 82747; 83735; 83880; 84100; 84443; 84484; 85014; 85025; 85610; 86593; 87086; 93005; 93010; 97116-GP; 97161-GP; 99282-25; J0131; J1644; J7030

== ENCOUNTER 2018-07-23 09:36 | Emergency (ER) | payer OTHER ==
[2018-07-23 09:42] VITALS: BP 149/95; TEMP 98.4; BMI 17.7
--- NOTE | 2018-07-23 10:24 | PDOC ---
History of Present Illness <Kamla Lovelace - Last Filed: 07/23/18 12:37> - General History Source: Patient, Old Records - History of Present Illness Initial Comments: 07/23/18 10:21 Pt is a 62yo F with PMH of CVA, Seizure, Opioid Dependence, Back surgery (>20y ago) presenting to ED with complaints of R leg pain s/p fall 2 days ago. Pt states she was in her home when she slipped on a puddle of water and fell. She does not remember how she landed or what she fell into but states "things were flying everywhere". She endorses R posterior leg pain that goes down to the toes associated with numbness. She describest the pain as a knife stabbing her in the foot and thigh. She denies hitting her head, LOC, new back pain. She states she took baby ASA for the pain but it did not help. <Sarah Rajan - Last Filed: 07/23/18 16:02> - General Chief Complaint: Respiratory Stated Complaint: RT LEG PAIN, COUGH & COLD SX Time Seen by Provider: 07/23/18 09:37 Past History <Kamla Lovelace - Last Filed: 07/23/18 12:37> - Past Medical History Anemia: No Asthma: No Cancer: No Cardiac Disorders: No CVA: No COPD: No CHF: No Dementia: No Diabetes: No GI Disorders: No Disorders: No HTN: No Hypercholesterolemia: No Liver Disease: No Psychiatric Problems: Yes (PANIC ATTACKS) Seizures: Yes Thyroid Disease: No - Surgical History Abdominal Surgery: No Appendectomy: Yes Cardiac Surgery: No Cholecystectomy: No Lung Surgery: No Neurologic Surgery: Yes (herniated disc,scoliosis) Orthopedic Surgery: No - Immunization History Immunization Up to Date: Yes - Suicide/Smoking/Psychosocial Hx Smoking Status: Yes Smoking History: Current every day smoker Have you smoked in the past 12 months: Yes Number of Cigarettes Smoked Daily: 10 Cigars Per Day: 0 Information on smoking cessation initiated: Yes 'Breaking Loose' booklet given: 10/24/16 Hx Alcohol Use: No Drug/Substance Use Hx: No Substance Use Type: None, Prescribed Hx Substance Use Treatment: No <Sarah Rajan - Last Filed: 07/23/18 16:02> - Past Medical History Allergies/Adverse Reactions: Allergies Allergy/AdvReac Type Severity Reaction Status Date / Time lactose AdvReac Unknown Verified 07/23/18 09:37 Home Medications: Ambulatory Orders Aspirin [Aspirin EC] 81 mg PO DAILY 30 Days #30 tablet. 02/24/18 Amlodipine Besylate [Norvasc -] 10 mg PO DAILY #30 tablet 04/14/18 Atorvastatin Ca [Lipitor] 10 mg PO HS #30 tablet 04/14/18 Labetalol HCl [Normodyne -] 400 mg PO BID #60 tablet 04/14/18 levETIRAcetam [Keppra -] 500 mg PO BID #60 tablet 04/14/18 Review of Systems - Review of Systems Constitutional: No: Chills, Fever HEENTM: No: Symptoms Reported Respiratory: No: Symptoms reported Cardiac (ROS): No: Chest Pain ABD/GI: No: Symptoms Reported : No: Symptoms Reported Musculoskeletal: Yes: See HPI Integumentary: No: Symptoms Reported Neurological: Yes: See HPI <Sarah Rajan - Last Filed: 07/23/18 16:02> *Physical Exam - Vital Signs Last Vital Signs Temp Pulse Resp BP Pulse Ox 98.4 F 105 H 20 149/95 98 07/23/18 09:36 07/23/18 09:36 07/23/18 09:36 07/23/18 09:36 07/23/18 09:36 <Kamla Lovelace - Last Filed: 07/23/18 12:37> - Vital Signs Last Vital Signs Temp Pulse Resp BP Pulse Ox 98.4 F 105 H 20 149/95 98 07/23/18 09:36 07/23/18 09:36 07/23/18 09:36 07/23/18 09:36 07/23/18 09:36 <Sarah Rajan - Last Filed: 07/23/18 16:02> Moderate Sedation - Procedure Monitoring Vital Signs: Procedure Monitoring Vital Signs Temperature 98.4 F 07/23/18 09:36 Pulse Rate 105 H 07/23/18 09:36 Respiratory Rate 20 07/23/18 09:36 Blood Pressure 149/95 07/23/18 09:36 O2 Sat by Pulse Oximetry (%) 98 07/23/18 09:36 <Kamla Lovelace - Last Filed: 07/23/18 12:37> - Procedure Monitoring Vital Signs: Procedure Monitoring Vital Signs Temperature 98.4 F 07/23/18 09:36 Pulse Rate 105 H 07/23/18 09:36 Respiratory Rate 20 07/23/18 09:36 Blood Pressure 149/95 07/23/18 09:36 O2 Sat by Pulse Oximetry (%) 98 07/23/18 09:36 <Sarah Rajan - Last Filed: 07/23/18 16:02> ED Treatment Course - RADIOLOGY Radiology Studies Ordered: Category Date Time Status CHEST PA & LAT [RAD] Stat Radiology 07/23/18 09:40 Taken <AlbaniaKamla Mona - Last Filed: 07/23/18 12:37> Medical Decision Making - Medical Decision Making 07/23/18 11:33 Pt is a 62yo F with PMH of CVA, Seizure, Opioid Dependence, Back surgery (>20y ago) presenting to ED with complaints of R leg pain s/p fall 2 days ago. Pt states she was in her home when she slipped on a puddle of water and fell. She does not remember how she landed or what she fell into but states "things were flying everywhere". She endorses R posterior leg pain that goes down to the toes associated with numbness. She describest the pain as a knife stabbing her in the foot and thigh. She denies hitting her head, LOC, new back pain, bladder/ bowel incontinence. She states she took baby ASA for the pain but it did not help. Vitals: HR 105 PE: diffuse R leg tenderness, full ROM, reflexes 2+, normal rectal tone, R leg flexed and externally rotated at rest. Ddx includes but not limited to fracture, sciatica, mass effect, DVT <Sarah Rajan - Last Filed: 07/23/18 16:02> *DC/Admit/Observation/Transfer - Discharge Dispostion Decision to Admit order: No <Kamla Lovelace - Last Filed: 07/23/18 12:37> - Discharge Dispostion Decision to Admit order: No <Sarah Rajan - Last Filed: 07/23/18 16:02> Diagnosis at time of Disposition: Leg pain Qualifiers: Laterality: right Qualified Code(s): M79.604 - Pain in right leg Fall Qualifiers: Encounter type: initial encounter Qualified Code(s): W19.XXXA - Unspecified fall, initial encounter - Discharge Dispostion Disposition: HOME Condition at time of disposition: Good - Referrals Referrals: Brianna Irene MD [Non Staff, Medical] - - Patient Instructions Printed Discharge Instructions: How to Prevent Falls, DI for Leg Pain Additional Instructions: your Xrays show the old screws and plate for your leg fracture previously. there are no findings of acute fractures your Chest Xray is also negative for infection or fluid. you should take tylenol for pain as needed as well as your usual prescriptions. you can bear weight and walk. FALL PREVENTION AT HOME WHAT YOU NEED TO KNOW There are many different factors that can increase your risk of falls. Falls can happen any time, but the majority of them occur in the home. Fall prevention includes ways to make your home and other areas safer. It also includes ways you can move more carefully to prevent a fall. Health conditions that cause changes in your blood pressure, vision, or muscle strength and coordination may increase your risk for falls. Medicines, including anesthesia, may increase your risk for falls if they make you dizzy, weak, or sleepy. FALL PREVENTION TIPS Stand or sit up slowly. This may help you keep your balance and prevent falls. Do not walk and talk at the same time. Concentrate on the task of walking and continue the conversation after you've reached a safe place. Wear shoes that fit well and have soles that mamma logist. Wear shoes both inside and outside. Use slippers with good mamma logist. Avoid shoes with high heels. Use assistive devices as directed. Your healthcare provider may suggest that you use a cane or walker to help you keep you balance. Be sure you have adequate lighting throughout your house. Keep paths clear. Remove books, shoes and other objects from walkways and stairs. Keep cords for telephones and lamps out of the way so you dont need to walk over them. Remove small rugs or secure them with double-sided tape. This will prevent you from tripping. Use a nightlight when getting out of bed at night. Stay active to maintain overall strength and endurance. Know your limitations. If there is a task you can not complete with ease, do not risk a fall by trying to complete it. Call 911 or have someone else call if: You have fallen and are unconscious You have fallen and cannot move part of your body Contact your healthcare provider if: You have fallen and have pain or a headache You have questions or concerns about your condition or care.
[2018-07-23] MEDS ORDERED: ACETAMINOPHEN 500 MG TABLET (FP) PO ONE (10:36)
[2018-07-23] MEDS ORDERED: ACETAMINOPHEN 325 MG TABLET (FP) ONE (10:38)
--- NOTE | 2018-07-23 10:47 | PDOC ---
Attending Attestation - Resident Resident Name: Sa Mohiniira - ED Attending Attestation I have performed the following: I have examined & evaluated the patient, The case was reviewed & discussed with the resident, I agree w/resident's findings & plan - HPI HPI: 07/23/18 11:00 62 y/o F with PMHx of HTN, HLD, opioid dependency, epilepsy, CVA, skeletal back problems (previous back sx), panic attacks, neuropathy presenting with RLE pain s/p trip and fall over puddle. able to ambulate. c/o sharp shooting pains going down leg/thigh. - Physicial Exam PE: 07/23/18 11:00 agree with PE in resident note. NAD, but yelling in pain demanding her medications. ambulatory. warm and well perfused. no focal neuro deficits. RLE diffusely tender, but able to bear weight. - Medical Decision Making 07/23/18 11:01 hpi as documented VS wnl. c/o pain, offered tylenol but patient refused. requesting her gabapentin, which she can take at home, as this is her usual regimen. Xray chest normal, kyphosis noted. XR RLE _with screw/plate for old tibia fx in place, no acute fx or dislocation. normal joint alignment of hip socket/pelvis, ankle, knee. has been ambulatory, no neuro deficits, calling out from room regularly. gait is stable. fall safety prevention instructions provided. dispo: Pt to be discharged in stable condition. Patient and family made aware of impression and plan, return precautions discussed (including but not limited to worsening pain or symptoms), fevers, or signs of infection, chest pain, respiratory distress, inability to tolerate oral intake, dehydration, syncope, or neurologic changes). Follow up with PMD and/or specialist as recommended, follow up information provided, take medications as instructed for duration of time. continue with supportive care, avoid triggers and precipitants. Patient does not suffer from an acute life-threatening medical condition at this time she is safe for outpatient follow-up. 07/23/18 12:52
[2018-07-23 13:19] VITALS: PULSE 89
== END 2018-07-23 13:00 | disposition home or self-care (01) ==
LOC: FER 09:36
DX: M79.604 Pain in right leg (principal); R56.9 Unspecified convulsions; F11.20 Opioid dependence, uncomplicated
CPT/HCPCS: 71046-TC-FY; 73523-TC-FY; 73552-TC-RT-FY; 73590-TC-RT-FY; 73610-TC-RT-FY; 73630-TC-RT-FY; 99284-25